=== PATIENT | female | born 1985 | race Caucasian/White ===

== ENCOUNTER 2018-10-22 10:33 | Outpatient (REF) | payer MEDICAID, SELFPAY ==
[2018-10-22 18:52] LABS: HCT 38.2 % (36.0-46.0); HGB 12.4 g/dL (12.0-15.5); Mean Corp. HGB Concentration 32.5 g/dL (32.0-36.0); Mean Corpuscular Hemoglobin 29.9 pg (27.0-33.0); Mean Platelet Volume 10.3 fL (8.0-11.0); Platelet Count 256 x1000/uL (130-400); RBC 4.15 m/cumm (4.00-5.20); RBC Distribution Width 12.8 % (11.7-14.6); White Blood Cell Count 10.53 k/cumm (4.4-10.8)
[2018-10-22 19:05] LABS: Iron 52 ug/dL (50-175)
[2018-10-22 19:13] LABS: Anion Gap 10.6 mmol/L (3-11); BUN 15 mg/dL (7-18); CO2 30.4 mmol/L (21.0-32.0); CREATININE 0.81 mg/dL (0.55-1.02); Chloride 101 mmol/L (98-107); Ferritin 83 ng/mL (8-388); Glucose 131 mg/dL (70-100); Sodium 142 mmol/L (136-145); TSH 0.83 uIU/mL (0.358-3.74)
[2018-10-22 20:57] LABS: Potassium 2.9 mmol/L (3.5-5.1)
[2018-10-24 06:32] LABS: Vitamin D 25 Total 22.8 ng/ml (30-100)
== END 2018-10-22 10:53 ==
LOC: NCHCN 10:33
PROVIDERS: Visit Provider Nurse Practitioner Family
DX: R53.83 Other fatigue (principal)
CPT/HCPCS: 80048; 82306; 85027; 82728; 83540; 84443; 87086

== ENCOUNTER 2018-12-24 14:51 | Outpatient (REF) | payer MEDICAID, SELFPAY | END 2018-12-24 15:11 | LOC: NCHCN 14:51 | PROVIDERS: Visit Provider Nurse Practitioner Family | DX: N89.8 Other specified noninflammatory disorders of vagina (principal) | CPT/HCPCS: 87480; 87510; 87660 ==

== ENCOUNTER 2019-09-04 12:54 | Outpatient (REF) | payer MEDICAID, SELFPAY ==
[2019-09-04 19:34] LABS: Anion Gap 11.4 mmol/L (3-11); BUN 14 mg/dL (7-18); CO2 27.6 mmol/L (21.0-32.0); CREATININE 0.61 mg/dL (0.55-1.02); Calcium 9.3 mg/dL (8.5-10.1); Chloride 102 mmol/L (98-107); Glucose 99 mg/dL (74-106); Sodium 141 mmol/L (136-145); TSH (W/Ref FT4) 1.63 uIU/mL (0.36-3.74)
== END 2019-09-04 13:14 ==
LOC: NCHCN 12:54
PROVIDERS: PCP Nurse Practitioner Family; Visit Provider Nurse Practitioner Family
DX: R00.2 Palpitations (principal); I10 Essential (primary) hypertension
CPT/HCPCS: 80048; 84443

== ENCOUNTER 2019-10-09 10:03 | Outpatient (REF) | payer MEDICAID, SELFPAY | END 2019-10-09 10:23 | LOC: NCHCN 10:03 | PROVIDERS: PCP Nurse Practitioner Family; Visit Provider Nurse Practitioner Family | DX: N39.0 Urinary tract infection, site not specified (principal) | CPT/HCPCS: 87077; 87086 ==

== ENCOUNTER 2020-04-15 13:07 | Outpatient (REF) | payer MEDICAID, SELFPAY ==
[2020-04-15 19:53] LABS: HCT 39.1 % (36.0-46.0); HGB 12.5 g/dL (11.2-15.7); MCH 28.9 pg (27.0-33.0); MCV 90.3 fL (80-95); MPV 10.4 fL (8.0-11.0); Platelet Count 264 10^3/uL (130-400); RBC 4.33 10^6/uL (3.93-5.22); RDW 13.2 % (11.7-14.6); RDW-SD 43.8 fL; WBC 8.16 10^3/uL (4.4-10.8)
[2020-04-15 20:20] LABS: Iron 48 ug/dL (50-170)
[2020-04-15 20:38] LABS: Vitamin D 25 Total 36.4 ng/ml (30-100)
[2020-04-15 20:40] LABS: Anion Gap 11.8 mmol/L (3-11); BUN 19 mg/dL (7-18); CO2 23.2 mmol/L (21.0-32.0); CREATININE 0.83 mg/dL (0.55-1.02); Calcium 9.5 mg/dL (8.5-10.1); Chloride 104 mmol/L (98-107); Ferritin 69 ng/mL (8-252); Glucose 93 mg/dL (74-106); Magnesium 1.7 mg/dL (1.8-2.4); Potassium 4.1 mmol/L (3.5-5.1); Sodium 139 mmol/L (136-145); TSH (W/Ref FT4) 1.37 uIU/mL (0.36-3.74); Vitamin B12 1760 pg/mL (193-986)
== END 2020-04-15 13:27 ==
LOC: NCHCN 13:07
PROVIDERS: PCP Nurse Practitioner Family; Visit Provider Nurse Practitioner Family
DX: I10 Essential (primary) hypertension (principal); E83.42 Hypomagnesemia; D50.9 Iron deficiency anemia, unspecified; Z68.42 Body mass index [BMI] 45.0-49.9, adult
CPT/HCPCS: 80048; 82306; 85027; 82607; 82728; 83540; 83735; 84443

== ENCOUNTER 2020-06-14 19:40 | Outpatient (REF) | payer MEDICAID, SELFPAY | END 2020-06-14 20:00 | LOC: NCHCN 19:40 | PROVIDERS: PCP Nurse Practitioner Family; Visit Provider Internal Medicine | DX: R30.0 Dysuria (principal) | CPT/HCPCS: 87086 ==

== ENCOUNTER 2021-01-05 18:25 | Outpatient (REF) | payer MEDICAID, SELFPAY ==
[2021-01-06 17:04] LABS: COVID-19 RT-PCR UVMMC Result Negative (Negative)
== END 2021-01-05 18:26 | disposition home or self-care (01) ==
LOC: NCHCN 18:25
PROVIDERS: PCP Nurse Practitioner Family; Visit Provider Nurse Practitioner Family
DX: Z20.822 Contact with and (suspected) exposure to COVID-19 (principal)
CPT/HCPCS: U0003

== ENCOUNTER 2021-02-17 17:13 | Outpatient (REF) | payer MEDICAID, SELFPAY | END 2021-02-17 17:14 | disposition home or self-care (01) | LOC: NCHCN 17:13 | PROVIDERS: PCP Nurse Practitioner Family; Visit Provider Physician Assistant | DX: R30.9 Painful micturition, unspecified (principal); R30.0 Dysuria | CPT/HCPCS: 87086; 87480; 87510; 87660 ==

== ENCOUNTER 2021-06-16 16:17 | Outpatient (REF) | payer MEDICAID, SELFPAY ==
[2021-06-16 21:02] LABS: HCT 39.6 % (36.0-46.0); HGB 12.5 g/dL (11.2-15.7); MCH 28.7 pg (27.0-33.0); MCHC 31.6 % (32.0-36.0); MPV 9.9 fL (8.0-11.0); Platelet Count 302 10^3/uL (130-400); RBC 4.35 10^6/uL (3.93-5.22); RDW 12.6 % (11.7-14.6); RDW-SD 41.7 fL; WBC 10.88 10^3/uL (4.4-10.8)
[2021-06-16 21:14] LABS: ALT 34 U/L (14-59); AST 14 U/L (15-37); Alkaline Phosphatase 93 U/L (46-116); Anion Gap 12.9 mmol/L (3-11); BUN 18 mg/dL (7-18); Bilirubin, Total 0.2 mg/dL (0.2-1.0); CO2 24.1 mmol/L (21.0-32.0); CREATININE 0.9 mg/dL (0.55-1.02); Calcium 9.5 mg/dL (8.5-10.1); Calculated LDL 154 mg/dL (<100); Chloride 102 mmol/L (98-107); Cholesterol 237 mg/dL (<200); Glucose 99 mg/dL (74-106); HDL Cholesterol 54 mg/dL (40-60); Potassium 4.3 mmol/L (3.5-5.1); Sodium 139 mmol/L (136-145); Total Protein 7.9 g/dL (6.4-8.2); Triglyceride 146 mg/dL (<150)
== END 2021-06-16 16:18 | disposition home or self-care (01) ==
LOC: NCHCN 16:17
PROVIDERS: PCP Nurse Practitioner Family; Visit Provider Registered Nurse
DX: I10 Essential (primary) hypertension (principal); Z68.45 Body mass index [BMI] 70 or greater, adult; Z00.00 Encounter for general adult medical examination without abnormal findings
CPT/HCPCS: 80053; 80061; 85027

== ENCOUNTER 2021-07-27 17:37 | Outpatient (REF) | payer MEDICAID, SELFPAY ==
[2021-07-28 04:09] LABS: Vitamin D 25 Total 37.5 ng/mL (30-100)
[2021-07-28 08:21] LABS: Ferritin 67 ng/mL (8-252); Magnesium 1.8 mg/dL (1.8-2.4)
== END 2021-07-27 17:38 | disposition home or self-care (01) ==
LOC: NCHCN 17:37
PROVIDERS: PCP Nurse Practitioner Family; Visit Provider Registered Nurse
DX: I10 Essential (primary) hypertension (principal); R73.03 Prediabetes; G25.81 Restless legs syndrome
CPT/HCPCS: 82306; 82728; 83735

== ENCOUNTER 2022-08-17 16:49 | Outpatient (REF) | payer MEDICAID, SELFPAY | END 2022-08-17 16:50 | disposition home or self-care (01) | LOC: NCHCN 16:49 | PROVIDERS: PCP Nurse Practitioner Family; Visit Provider Registered Nurse | DX: L29.8 Other pruritus (principal) | CPT/HCPCS: 87480; 87510; 87660 ==

== ENCOUNTER 2022-10-27 20:48 | Outpatient (REF) | payer MEDICAID, SELFPAY ==
[2022-10-27 21:21] LABS: Abs Immature Grans 0.02 10^3/uL (0.0-0.06); Absolute Basophil Count 0.03 10^3/uL (0.0-0.2); Absolute Eosinophil Count 0.18 10^3/uL (0.0-0.7); Absolute Lymphocyte Count 3.13 10^3/uL (1.2-3.4); Absolute Neutrophil Count 5.46 10^3/uL (1.2-6.7); Basophils % 0.3; HCT 40.4 % (36.0-46.0); Immature Grans % 0.2; Lymphocytes % 33.9; MCH 29.5 pg (27.0-33.0); MCHC 32.2 % (32.0-36.0); MCV 92 fL (80-95); MPV 10.4 fL (8.0-11.0); Monocytes % 4.3; Neutrophils % 59.3; Platelet Count 265 10^3/uL (130-400); RBC 4.41 10^6/uL (3.93-5.22); RDW 12.7 % (11.7-14.6); RDW-SD 42.5 fL; WBC 9.22 10^3/uL (4.4-10.8)
[2022-10-27 21:30] LABS: ALT 31 U/L (14-59); AST 21 U/L (15-37); Albumin 3.9 g/dL (3.4-5.0); Alkaline Phosphatase 75 U/L (46-116); Anion Gap 9.8 mmol/L (3-11); BUN 10 mg/dL (7-18); Bilirubin, Total 0.3 mg/dL (0.2-1.0); CO2 26.2 mmol/L (21.0-32.0); CREATININE 0.9 mg/dL (0.55-1.02); Calcium 9.5 mg/dL (8.5-10.1); Chloride 103 mmol/L (98-107); Estimated GFR 84.44 (mL/min/1.73m2); Glucose 110 mg/dL (74-106); Lipase 22 U/L (16-77); Potassium 3.8 mmol/L (3.5-5.1); Sodium 139 mmol/L (136-145); Total Protein 7.9 g/dL (6.4-8.2)
== END 2022-10-27 20:49 | disposition home or self-care (01) ==
LOC: NCHCN 20:48
PROVIDERS: PCP Nurse Practitioner Family; Visit Provider Registered Nurse
DX: R10.9 Unspecified abdominal pain (principal)
CPT/HCPCS: 80053; 83690; 85025

== ENCOUNTER 2024-07-15 21:41 | Outpatient (REF) | payer MEDICAID, SELFPAY ==
--- OUTSIDE RECORDS SUMMARY | 2024-07-15 21:45 | XMS_ITS | Encounter Summary ---
Author Organization [facility] Address [facility] [place] [address] Care Team Providers Care Bike Designer Name Role Phone Trisha Jacobson Hoa PANDYA Primary Care Provider + Reason for Visit * Reason Comments Annual Exam Encounter Details Date Type Department Care Team (Latest Contact Info) Description 11/24/2022 11:00 AM EST Office Visit Obstetrics [place] [address] Jacque Dawson APRN [facility] [place] [address] History of loop electrical excision procedure (LEEP); High grade squamous intraepithelial lesion (HGSIL), grade 3 CAROLEE, on biopsy of cervix Social History Tobacco Use Types Packs/Day Years Used Date Smoking Tobacco: Former Smokeless Tobacco: Never Alcohol Use Standard Drinks/Week Comments Not Currently 0 (1 standard drink = 0.6 oz pur e alcohol) Sex and Gender Information Value Date Recorded Sex Assigned at Not on file Gender Identity Female 09/20/2020 2:54 PM EST Sexual Orientation Not on file documented as of this encounter Last Filed Vital Signs Vital Sign Reading Time Taken Comments Blood Pressure 141/78 11/24/2022 11:03 AM EST Pulse 87 11/24/2022 11:03 AM EST Temperature 37.2 ??C (99 ??F) 11/24/2022 11:03 AM EST Respiratory Rate 16 11/24/2022 11:03 AM EST Oxygen Saturation 98% 11/24/2022 11:03 AM EST Inhaled Oxygen Concentration - - Weight 180 kg (396 lb 14.4 oz) 11/24/2022 11:03 AM EST Height - - Body Mass Index 68.13 09/15/2021 1:15 PM EST documented in this encounter Progress Notes * Jacque Dawson APRN - 11/24/2022 11:00 AM EST Gynecology Note Subjective: Cecilia Connelly is a 37 y.o. female who is here to discuss follow up pap. Reports her menses has been worsening, heavy bleeding, big clots and excruciatingly painful at thebeginning. Pap history: 08/2022: f/u cotesting due 08/2021: NILM/HPV neg, benign ECC 07/2021: pap unsat/HPV neg, benign ECC 09/22/20 LEEP HSIL/CAROLEE III Completed HPV vaccine series Patient Active Problem List Diagnosis Date Noted ??? BMI 60.0-69.9, adult 09/30/2020 ??? CAROLEE III (cervical intraepithelial neoplasia III) 09/22/2020 No Known Allergies Outpatient Medications Marked as Taking for the 11/24/22 encounter (Office Visit) with Jacque Dawson APRN Medication Sig Dispense Refill ??? Spiriva with HandiHaler 18 mcg Capsule, w/Inhalation Device INHALE THE CONTENTS OF ONE CAPSULE VIA HANDIHALER BY MOUTH EVERY DAY ??? traZODone (Desyrel) 50 mg Tablet Take 50 mg by mouth nightly. ??? ondansetron ODT (Zofran-ODT) 4 mg Tablet, Rapid Dissolve DISSOLVE ONE TABLET ON THE TONGUE EVERY 8 HOURS NEEDED FOR NAUSEA AND VOMITING ??? L-Methylfolate 15 mg Tablet Take 15 mg by mouth daily. ??? fluticasone propion-salmeteroL (ADVAIR HFA) 115-21 mcg/actuation HFA Aerosol Inhaler Inhale 2 puffs into the lungs 2 times daily. ??? lamoTRIgine (LaMICtal) 100 mg Tablet Take 100 mg by mouth daily. ??? lisdexamfetamine (Vyvanse) 10 mg Capsule Take 50 mg by mouth daily. ??? Lavender Oil Oil by Misc.(Non-Drug; Combo Route) route. ??? LORazepam (Ativan) 1 mg Tablet Take 1 mg by mouth every 6 hours as needed for Anxiety. ??? fexofenadine (PRAVIN) 180 mg Tablet TAKE 1 TABLET BY MOUTH ONCE DAILY ??? Mag-G 27 mg magnesium (500 mg) Tablet TAKE 3 TO 4 TABLETS BY MOUTH TWICE DAILY ??? sertraline (ZOLOFT) 100 mg Tablet 50 mg. Half tab once a day ??? diphenhydrAMINE (Benadryl) 25 mg Capsule Take 25 mg by mouth every 6 hours as needed for Itching. ??? omeprazole (PriLOSEC) 40 mg Capsule, Delayed Release(E.C.) TAKE 1 CAPSULE BY MOUTH TWICE DAILY REPLACES OMEPRAZOLE 20MG ??? lisinopriL (Prinivil;Zestril) 40 mg Tablet TAKE 1 TABLET BY MOUTH ONCE DAILY DOSE INCREASE ??? cholecalciferol, Vitamin D3, 50 mcg (2,000 unit) Capsule TAKE 2 CAPSULES BY MOUTH ONCE DAILY ??? acetaminophen (TYLENOL) 650 mg Tablet Sustained Release Take 650 mg by mouth every 8 hours as needed for Pain. Do not exceed 6 tabs in 24 hours ??? Vitamins B Complex Tablet TAKE 1 TABLET BY MOUTH TWICE DAILY ??? naproxen (NAPROSYN) 500 mg Tablet TAKE 1 TABLET BY MOUTH TWICE DAILY NEEDED FOR PAIN ??? albuteroL 90 mcg/actuation HFA Aerosol Inhaler Inhale 2 puffs into the lungs every 4 hours as needed for Wheezing. Use with spacer Past Medical History: Diagnosis Date ??? Anemia ??? Carpal tunnel syndrome ??? Chronic headaches ??? Depression with anxiety ??? GERD (gastroesophageal reflux disease) ??? Hypertension ??? Insomnia ??? Low back pain ??? Obesity ??? Prediabetes ??? PTSD (post-traumatic stress disorder) ??? Sleep apnea CPAP ??? Urolithiasis Past Surgical History: Procedure Laterality Date ??? SECTION 2014 ??? SECTION 2015 ? ? PRO CONIZATION CERVIX W/WO D&C RPR ELECTRODE EXCISION N/A 09/22/2020 CONIZATION OF CERVIX, LOOP ELECTRODE (WRVU 3.67) performed by Jennifer Blair MD at [facility] MAIN OR ??? PRO REMOVE INTRAUTERINE DEVICE N/A 09/22/2020 (MSURG) REMOVAL IUD, VAGINAL APPROACH (WRVU 1.27) performed by Jennifer Blair MD at [facility] MAIN OR ??? TONSILLECTOMY ??? TUBAL LIGATION 2016 salpingectomy ??? TYMPANOSTOMY TUBE PLACEMENT Family History Problem (# of Occurrences) Relation (Name,Age of Onset) Breast Cancer (1) Other (Maternal great aunt) Ovarian Cancer (1) Mother (25): Start of ovarian cancer Bladder Cancer (1) Maternal Grandfather Negative family history of: Uterine Cancer, Colorectal Cancer, Pancreatic Cancer, Stomach Cancer OB History 2 Para 2 Term 2 AB Living 2 SAB IAB Ectopic Multiple Live Births 2 # Outc Date GA Lbr Davis/2nd Wgt Sex Del Anes PTL Lv 1 01/2015 36w0d 2.92 kg (6 lb 7 oz) F C-S scar Living Comments: PPROM, breech 2 06/2016 36w0d F C-S scar Living Comments: Pre-eclampsia, repeat CS due to short zlwip-dnjpdevm-irqzauul ROS as above Objective: BP 141/78 Pulse 87 Temp 37.2 ??C (99 ??F) Resp 16 Wt (!) 180 kg (396 lb 14.4 oz) LMP 10/30/2022 (Exact Date) SpO2 98% BMI 68.13 kg/m?? A spragger was present for this exam. Pelvic Exam: Urethra: Nontender, without prolapse or lesions. Vulva: Well developed and appropriate architecture present. No lesions. Vagina: [place], moist, rugated. Physiologic discharge present. No lesions. Bimanual exam performed and cervix easily palpated Cervix: long graves speculum used, Anterior lip visualized and grasped with tenaculum, however, patient was unable to tolerate and unable to pull face of cervix into view. Decision made to obtain blind pap Assessment/Plan: 37 y.o. female with h/o HSIL/CIN3 on LEEP presents for f/u pap with concern for return of heavy, painful menses - Blind pap obtained as unable to fully visualize cervix - Recommend separate visit to discuss menstrual history and concern, given interest in endometrial ablation, recommend MD f/u. - If pap unsatisfactory and endometrial ablation pursued, we discussed that repeat pap could be done in OR at time of ablation Jacque Dawson APRN I spent a total of 35 minutes on this patient encounter or all related clinical activities before, during, and after the visit. The Century Cures Act makes medical notes like this available to patients in the interest of transparency. However, be advised this is a medical document. It is intended as dwcx-ci-gyuv communication. It is written in medical language and may contain abbreviations or verbiage that are unfamiliar. * Radha Rodriguez LNA - 11/24/2022 11:00 AM EST Examination chaperoned by RAHEL Ram. documented in this encounter Plan of Treatment Not on file documented as of this encounter Procedures Procedure Name Priority Date/Time Associated Diagnosis Comments CYTOPATHOLOGY GYNECOLOGICAL Routine 11/24/2022 11:28 AM EST History of loop electrical excision procedure (LEEP) High grade squamous intraepithelial lesion (HGSIL), grade 3 CAROLEE, on biopsy of cervix HPV Routine 11/24/2022 11:00 AM EST MAINTENANCE DEPARTMENT MANAGER CYTOLOGY INTERPRETATION Routine 11/24/2022 11:00 AM EST MAINTENANCE DEPARTMENT MANAGER CYTOLOGY FINAL REPORT Routine 11/24/2022 11:00 AM EST documented in this encounter Results * Cytopathology Gynecological (11/24/2022 11:28 AM EST) AP Specimen 11/24/2022 11:2 8 AM EST 11/24/2022 11:28 AM EST Narrative [facility] - 11/24/2022 11:28 AM EST Specimen requisition ordered. ??Separate Pathology report to follow Jacque Dawson APRN PATHOLOGY/CYTOLOGY O RDERABLES [facility] [place] [address] * MAINTENANCE DEPARTMENT MANAGER Cytology Interpretation (11/24/2022 11:00 AM EST) Wool Scourer Cytology Interpretation Unsatisfactory [facility] Comment:Wool Scourer Cytology Final R eport Wool Scourer Cytology Comment Present [facility] Endocervical Component Unsatisfactory [facility] AP Specimen 11/24/2022 11:0 0 AM EST 12/18/2022 12:38 PM EDT Jacque Flores Dawson CORPORATE GIVING MANAGER PATHOLOGY/CYTOLOGY O RDERABLES [facility] [place] [address] * Wool Scourer Cytology Final Report (11/24/2022 11:00 AM EST) Wool Scourer Cytology Final Report [id number] ? Location: 5L The signing pathologist has (i) examined the relevant preparation(s) for the specimen(s) and (ii) rendered or confirmed the diagnosis(es). . ? Wool Scourer Final DIAGNOSIS Unsatisfactory Specimen submitted is unsatisfactory for evaluation. ??See discussion. For consensus guidelines for the management of cervical cancer screening test results, please see: ?? http://www.asccp. org . Electronically signed by: ?Sia CASTORENA(ASCP)Cristal Verified: ??12/18/2022 12:38 ??Cytotechnologis t Performed at: ??[place] [place], [place] [address] Veterinary Technician Assistant: Noel Chinchilla MD, FCAP, ??CLIA Certificate: [id number] DISCUSSION Specimen processed and examined but unsatisfactory for evaluation of epithelial abnormality due to insufficient squamous cellularity. Specimen limited by obscuring blood. HPV RESULTS HPV16 (Result) ?Negative HPV18 (Result) ?Negative HPVOHR (Result) ? Negative HPV (Interpretation) ?See Below HPV (Interpretation) Text: NEGATIVE for high-risk HPV *. *Testing negative for high risk HPV means that high risk HPV DNA is not detected in the specimen for the following 14 types tested: types 16, 18, 31, 33, 35, 39, 45, 51, 52, 56, 58, 59, 66, and 68. The test is not intended to detect low risk HPV types. Method: Lidia tiffany HPV test (FDA-approved for clinical use) Specimen: HPV Testing ?? - Cytology Liquid Based Prep This test is validated for cervical specimens only for use in cervical cancer screening. ??Other uses or specimen types are not validated/rec ommended. The Lidia tiffany ? HPV test was validated, performed and results reported through the [facility] ([facility]) at [facility] [place]. ? - Jesu Mott, PhD, [facility], Director-[facility] STATEMENT OF ADEQUACY Specimen submitted is unsatisfactory due to insufficient squamous component. CLINICAL INFORMATION HPV Option: ?Concurrent HPV and Pap CT/NG Option: ?No Preparation: ? Liquid based Pap Specimen Source: ? Cervical/Vaginal LMP: ? 10/30/22 Hysterectomy: ?No : ?No : ?No I.U.D.: ?No Pelvic Radiation: ?No Hist Abnl Pap/Biopsy: ?Yes, Pap after Cryo, LEEP . CLINICAL INFORMATION Prior MAINTENANCE DEPARTMENT MANAGER Therapy: ? Other (comment) Hist of HPV Vaccine: ? Yes ICD Diagnosis: ? Z12.4 Encounter for screening for malignant neoplasm of cervix Clinical Data, Significant Therapy and Clinical Impression ?? : ?LEEP 2019 This Pap Test has been evaluated with the assistance of the ThinPrep Pap Test Imaging System. Note: The Pap test is a screening test for cervical cancer with an inherent false-negative rate dependent upon several variables. For further information please contact the [facility] [place]. Reference: Bc SNOW. Precipitate Washer of Pap Smear Results. In: Lyudmila BS, Nathan HH, ed. The Pap Smear. [place]: Brady, 2002: 71-77. [facility] 11/24/2022 11:0 0 AM EST Jacque Dawson CORPORATE GIVING MANAGER PATHOLOGY/CYTOLOGY O RDERABLES [facility] [place] [address] * HPV (11/24/2022 11:00 AM EST) HPV16 NEGATIVE NEGATIVE [facility] HPV 18 NEGATIVE NEGATIVE [facility] HPV Other HR NEGATIVE NEGATIVE [facility] HPV Interpretation See Comment [facility] Comment: NEGATIVE for high-risk HPV *. ?? *Testing negative for high risk HPV means that high risk HPV DNA is not detected in the specimen for the following 14 types tested: types 16, 18, 31, 33, 35, 39, 45, 51, 52, 56, 58, 59, 66, and 68. The test is not intended to detect low risk HPV types. ?? Method: Lidia tiffany HPV test (FDA-approved for clinical use) Specimen: HPV Testing ? Cytology Liquid Based Prep This test is validated for cervical specimens only for use in cervical cancer screening. ??Other uses or specimen types are not validated/recommended. Cervical 11/24/2022 11:0 0 AM EST 11/24/2022 10:29 PM EST Narrative Resulting Agency Comment Spec In Lab Jacque Dawson CORPORATE GIVING MANAGER PATHOLOGY/CYTOLOGY O RDERABLES [facility] [place] [address] documented in this encounter Visit Diagnoses Diagnosis History of loop electrical excision procedure (LEEP) High grade squamous intraepithelial lesion (HGSIL), grade 3 CAROLEE, on biopsy of cervix documented in this encounter Care Teams Bike Designer Relationship Specialty Start Date End Date Trisha Jacobson, CORPORATE GIVING MANAGER [address] [place] [address] PCP - General 07/29/21 documented as of this encounter
--- OUTSIDE RECORDS SUMMARY | 2024-07-15 21:45 | XMS_ITS | Encounter Summary ---
Author Organization [facility] [place] [address] Care Team Providers Care Hand Potter Name Role Phone Trisha Jacobson SAMPLE DRILLER Primary Care Provider + Encounter Details Date Type Department Care Team (Latest Contact Info) Description 01/10/2023 Travel Social History Tobacco Use Types Packs/Day Years Used Date Smoking Tobacco: Former Smokeless Tobacco: Never Alcohol Use Standard Drinks/Week Comments Not Currently 0 (1 standard drink = 0.6 oz pur e alcohol) Sex and Gender Information Value Date Recorded Sex Assigned at Not on file Gender Identity Female 09/20/2020 2:54 PM EST Sexual Orientation Not on file documented as of this encounter Plan of Treatment Not on file documented as of this encounter Visit Diagnoses Not on filedocumented in this encounter Care Teams Hand Potter Relationship Specialty Start Date End Date Trisha Jcaobson, MUMTAZ [address] [place] [address] PCP - General 07/29/21 documented as of this encounter
--- OUTSIDE RECORDS SUMMARY | 2024-07-15 21:45 | XMS_ITS | Continuity of Care Document ---
Author Organization [facility] Address [address] [place] [address] Care Team Providers Care Pe[employer] Hcm Developer Name Role Phone Lizbeth Rose Primary Care Physician [phone] Encounter [facility] Date(s): 07/19/23 - 07/19/23 [facility] [address] [place] [address] Encounter Diagnosis Obstructive sleep apnea(Discharge Diagnosis) - 07/19/23 Restless legs syndrome(Discharge Diagnosis) - 07/19/23 Psychophysiologic insomnia(Discharge Diagnosis) - 07/19/23 Discharge Disposition: Home or Self Care Attending Physician: Shauna Kramer MD Allergies, Adverse Reactions, Alerts No Known Allergies Immunizations Given and Recorded Vaccine Date Status Refusal Reason SARS-CoV-2 (COVID-19) mRNA-1273 vaccine 10/25/20 R ecorded SARS-CoV-2 (COVID-19) mRNA-1273 vaccine 09/23/20 R ecorded influenza virus vaccine, live 06/29/16 Recorded tetanus/diphth/pertuss (Tdap) adult/adol 06/16/16 Recorded tetanus/diphth/pertuss (Tdap) adult/adol 01/05/15 Recorded Medications Advair HFA 230 mcg-21 mcg/inh inhalation aerosol 2 puffs, Inhale, BID Start Date: 06/09/22 Status: Ordered albuterol 2.5 mg/3 mL (0.083%) inhalation solution 2.5 mg = 3 mL, NEB, every 4 hr, PRN wheezing Start Date: 06/09/22 Status: Ordered Change DME company Change DME company, Current setting Bipap imax 20, krystle 11, PS 4 DME: [facility] Supply, See instructions, # 1 EA, 0 Refill(s), other reason (Rx) Start Date: 03/29/22 Status: Ordered famotidine 40 mg oral tablet 1 at bedtime, 0 Refill(s) Start Date: 07/02/23 Status: Ordered ferrous sulfate 325 mg (65 mg elemental iron) oral tablet 325 mg = 1 tab, Oral, Daily, 90 days only, no refills, after that use the MVI with Iron for maintenance, # 90 tab, 0 Refill(s), Pharmacy: [facility] Start Date: 07/24/22 Status: Ordered fluticasone 50 mcg/inh nasal spray 1 sprays, Nasal - Both Sides, BID Start Date: 06/09/22 Status: Ordered gabapentin 100 mg oral capsule See Instructions, take 1 to 3 capsules PO at night, self titrate to symptoms; ONLY FILL WHEN PT REQUESTS, # 90 cap, 0 Refill(s), Pharmacy: [facility], 163, cm, 07/19/23 9:45:00 EDT, Height,165.56, kg, 07/19/23 9:46:00 EDT, Weight Dosing Start Date: 07/19/23 Status: Ordered l-methylfolate 15 mg oral tablet 15 mg = 1 tab, Oral, Daily Start Date: 06/09/22 Status: Ordered lamoTRIgine 200 mg oral tablet 1 tab daily, 0 Refill(s) Start Date: 07/02/23 Status: Ordered lamoTRIgine 25 mg oral tablet 50 mg = 2 tab, Oral, Daily, INCREASE IN DOSE TO 250MG DAILY CONTINUE TO MONITOR FOR RASH Start Date: 06/09/22 Status: Ordered lavender oil lavender oil, Daily, 1 daily, 0 Refill(s) Start Date: 06/09/22 Status: Ordered lisinopril 40 mg oral tablet 40 mg = 1 tab, Oral, Daily Start Date: 06/09/22 Status: Ordered Mag-G 500 mg oral tablet See Instructions, Mag-G 27 mg magnesium (500mg); TAKE 3 TO 4 TABLETS BY MOUTH TWICE DAILY, # 720 tab, 3 Refill(s), Pharmacy: [facility] Start Date: 07/24/22 Status: Ordered Multi-Day Plus Minerals oral tablet 1 tab, Oral, Daily, multivitamin with iron (10 to 20mg per tab is fine), # 90 tab, 3 Refill(s), Pharmacy: [facility] Start Date: 07/24/22 Stop Date: 07/19/23 Status: Ordered naproxen 500 mg oral tablet 500 mg = 1 tab, Oral, BID, PRN pain, LESS IS BEST- TAKE ON THE DAYS YOU ARE HAVING KNEE PAIN Start Date: 06/09/22 Status: Ordered omeprazole 40 mg oral delayed release capsule 40 mg = 1 cap, Oral, Daily Start Date: 06/09/22 Status: Ordered traZODone 100 mg oral tablet 1 Tab at bedtime, 0 Refill(s) Start Date: 07/02/23 Status: Ordered Tylenol 8 Hour 650 mg oral tablet, extended release 2 a day, 0 Refill(s) Start Date: 07/02/23 Status: Ordered Vitamin B Complex oral capsule 1 cap, Oral, BID, # 180 cap, 3 Refill(s), Pharmacy: [facility] Start Date: 07/24/22 Stop Date: 07/19/23 Status: Ordered Vitamin D3 2000 intl units oral tablet 100 mcg = 2 tab, Oral, Daily, # 180 tab, 3 Refill(s), Pharmacy: [facility] Start Date: 07/24/22 Status: Ordered Vyvanse 40 mg oral capsule 40 mg = 1 cap, Oral, every morning, 0 Refill(s) Start Date: 06/09/22 Status: Ordered Problem List Condition Confirmation Course Effective Dates Status H ealth Status Informant Cellulitis of right upper limb Confirmed Active Chronic pelvic pain of female Confirmed 08/28/19 Active Daytime somnolence Confirmed 02/01/18 Active Fatigue Confirmed Active Hemorrhoids Confirmed Active Hypertensive disorder Confirmed Active Hypomagnesemia Confirmed Active Morbid obesity Confirmed 03/06/18 Active Obstructive sleep apnea syndrome 1 Confirmed 03/06/18 Active Obstructive sleep apnea Confirmed Active Pre-eclampsia Confirmed Active Prediabetes Confirmed 08/10/20 Active Previous uterine surgical scar Confirmed Active Prolonged QT interval Confirmed Active Restless leg Confirmed Active Restless legs Confirmed 02/01/18 Active Restless legs syndrome Confirmed Active Urolithiasis Confirmed 08/10/20 Active Vitamin D deficiency Confirmed 04/04/18 Active 1keene Procedures Procedure Date Related Diagnosis Body Site Status delivery 1 07/12/16 Compl eted Tubal ligation and Bilateral Salpingectomy 07/12/16 Completed delivery 2 01/16/15 Compl eted Tonsillectomy Completed 1repeat 2Breech Vital Signs Most recent to oldest [Reference Range]: 1 Weight 165.56 kg (07/19/23 9:45 AM) Weight Measured (lbs) 364.997 lb (07/19/23 9:45 AM) Weight Dosing 165.560 kg (07/19/23 9:45 AM) Height 163 cm (07/19/23 9:45 AM) Height/Length Measured (inches) 64.17 in ch (07/19/23 9:45 AM) BSA Measured 2.74 m2 (07/19/23 9:45 AM) Body Mass Index 62.31 kg/m2 (07/19/23 9:45 AM) Social History Social History Type Response Tobacco Former tobacco user Tobacco Use:. quit 8 years ago per day. Sex Female Progress note * Hernan Nation: PERFORM Event Display: Progress Note - Physician Authored Date: [id number] Physician Outpatient Note * Shauna Kramer MD: PERFORM, MODIFY, MODIFY Event Display: Office Clinic Note Physician Authored Date: [id number] JUAN A SOLITARIO :1985 Age:38 years Sex:Female Visit Date:07/19/2023 Primary Care Physician: Lizbeth Rose MD History of Present Illness - Pt presents for medication and BIPAP followup. - She is going to start gabapentin 2 tabs tonight. - She has had severe nausea preventing her from sleeping, which she attributes to either gabapentinor IBS. - She discontinued hydroxyzine immediately after last appt. She continues to experience restless legs symptoms. - She has also had episodes of paralysis with dizziness when resting, which lasted between 30 minutes to 1 hour. Denies history of sleep paralysis. During one episode she had uncontrollable vomiting but couldn't move. Review of Systems A 10-point REVIEW OF SYSTEM was obtained and reviewed, includes CONSTITUTIONAL, EYES, NOSE, THROAT,RESPIRATORY, HEART, GASTROINTESTINAL, UROLOGIC, MUSCULOSKELETAL, PSYCHIATRY, SKIN systems. Pertinent symptoms are discussed in history, otherwise negative. fatigue, allergies, wheezing, sobe, palpitations, nausea, constipation, headaches, difficulty sleeping Physical Exam Vitals & Measurements HT:??163??cm?? WT:??165.56??kg?? BMI:??62.31?? BSA:??2.74?? GENERAL:??well appearing, appearing??stated??age, no acute distress,??obese??build HEENT: atraumatic skull, anicteric RESPIRATORY: quiet respiration, able to speak in full sentences without dyspnea, no accessory muscle use,?? SKIN: no facial skin rash, no facial skin lesions PSYCHIATRIC: well groomed, fluent speech, good insight, linear thought process, good eye contact,??balanced??affect NEUROLOGIC: alert, oriented, symmetric facial expression Clinic Assessment/Plan 1.??Obstructive sleep apnea??G47.33 Actions: ORDERED - gabapentin, See Instructions, take 1 to 3 capsules PO at night, self titrate to symptoms;ONLY FILL WHEN PT REQUESTS, # 90 cap, 0 Refill(s), Pharmacy: [facility], 163, cm, 07/19/23 9:45:00 EDT, Height, 165.56, kg, 07/19/23 9:46:00 EDT, Weight Dosing, take 1 to 3 capsules PO at night, self titrate to symptoms; ONLY FILL WHEN PT REQUESTS COMPLETED - gabapentin, See Instructions, take 1 to 3 capsules PO at night, self titrate to symptoms; check with manager psychiatry first, # 90 cap, 0 Refill(s), 07/19/23 10:09:00 EDT, Pharmacy: [facility], take 1 to 3 capsules PO at night, self titrate to symptoms; check with manager psychiatry first COMPLETED - Follow-Up Appointment Request [facility], 07/19/23 10:00:00 EDT, In Approximately, [place] [facility], 07/19/23 10:00:00 EDT FUTURE - Follow-Up Appointment Request [facility], *Est. 09/05/23 +/- 7 days, Future Order, In Approximately, [facility] ?? 2.??Restless legs syndrome??G25.81 Actions: ORDERED - gabapentin, See Instructions, take 1 to 3 capsules PO at night, self titrate to symptoms;ONLY FILL WHEN PT REQUESTS, # 90 cap, 0 Refill(s), Pharmacy: [facility], 163, cm, 07/19/23 9:45:00 EDT, Height, 165.56, kg, 07/19/23 9:46:00 EDT, Weight Dosing, take 1 to 3 capsules PO at night, self titrate to symptoms; ONLY FILL WHEN PT REQUESTS COMPLETED - gabapentin, See Instructions, take 1 to 3 capsules PO at night, self titrate to symptoms; check with manager psychiatry first, # 90 cap, 0 Refill(s), 07/19/23 10:09:00 EDT, Pharmacy: [facility], take 1 to 3 capsules PO at night, self titrate to symptoms; check with manager psychiatry first FUTURE - Follow-Up Appointment Request [facility], *Est. 09/05/23 +/- 7 days, Future Order, In [facility] ?? 3.??Psychophysiologic insomnia??F51.04 Actions: ORDERED - gabapentin, See Instructions, take 1 to 3 capsules PO at night, self titrate to symptoms;ONLY FILL WHEN PT REQUESTS, # 90 cap, 0 Refill(s), Pharmacy: [facility], 163, cm, 07/19/23 9:45:00 EDT, Height, 165.56, kg, 07/19/23 9:46:00 EDT, Weight Dosing, take 1 to 3 capsules PO at night, self titrate to symptoms; ONLY FILL WHEN PT REQUESTS COMPLETED - gabapentin, See Instructions, take 1 to 3 capsules PO at night, self titrate to symptoms; check with manager psychiatry first, # 90 cap, 0 Refill(s), 07/19/23 10:09:00 EDT, Pharmacy: [facility], take 1 to 3 capsules PO at night, self titrate to symptoms; check with manager psychiatry first FUTURE - Follow-Up Appointment Request [facility], *Est. 09/05/23 +/- 7 days, Future Order, In [facility] ?? I provided greater than??30??minutes in the care of this patient including chart review and documentation, more than half the time was spent in aiqb-oo-soat counseling. ?? 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 ?? Comorbidities??include: ?Extremely Severe Obstructive Sleep Apnea and Extremely Severe Nocturnal Hypoxemia, Anxiety, GERD, Depression, RLS and Morbid Obesity BMI 66, IBS with gluten sensitivity ? Clinical Data Reviewed:? ESS - [place] Sleepiness Scale Total: 5 (07/24/22) ESS - [place] Sleepiness Scale Total: 1 (03/27/22) [place] Sleepiness Scale: 3 (07/02/23) [place] Sleepiness Scale: 2/24 (07/19/23) ?? Machine Download Data:??Respironics Dreamstation Auto BIPAP?? PAP Settings: ??Auto BIPAP??Imax 20 cmH2O, Krystle 11 cmH2O, PS 4 cmH2O Date Range: ?06/17/23 - 07/16/23 Days with Usage >=4 hours: ??93.3% Avg Usage per Day Used: ??[id number] 90th-tile Pressure: ?16.9/12.9 cmH2O Leak:?4m15s in large leak Avg Treatment ??AHI:?0.3/hr ?? Sleep Clinical Timeline:?? Due to snoring, witnessed apneas, excessive daytime sleepiness, restless legs, morning headaches and nocturia, Diagnostic Polysomnogram on 03/04/2018 at Weight 424 lbs and BMI 72.8 kg/m2, revealed Extremely Severe Obstructive Sleep Apnea. Extremely Severe nocturnal hypoxemia. No significant Periodic Limb Movement Disorder. Overall AHI 109/hr, Overall RDI 110/hr, REM AHI 76/hr. Supine AHI 130/hr, Right Lateral AHI 111/hr, Left Lateral AHI n/a/hr. Mean SpO2 85%. Chepe SpO2 37%. 193 minutes with SpO2 <= 88% on room air. Periodic Limb Movement Index 0/hr. Periodic Limb Movement Arousal Index 0/hr. No significant arrhythmia except onset of PVCs/PACs associated with severe O2 desaturations during REM sleep. No Yvan-Naik Respiration. No parasomnias. No abnormalities on limited EEG montage. Normal sleep efficiency. Decreased REM sleep (systems technologist woke up patient during REM due to concernof very low O2 and onset of ectopic beats) ?? She was given SENA results follow up and started on cpap immediately, with systems technologist who did mask fitting after clinic on 03/06/18. She tried the full face mask and could not tolerate due to claustrophobia. ?? Titration Polysomnogram on 03/30/2018 at Weight 431 lbs and BMI 71.7 kg/m2, tested CPAP 10 to CPAP 14 cmH2O. Best tested pressure was CPAP 14 cm/H2O which nearly resolved significant apneas, hypopneas, snoring and desaturations during supine REM sleep, but there were residual snoring and few hypopneas observed, suggesting higher pressure is needed for supine REM sleep. All tested pressures appeared adequate for supine NREM sleep. Adequate oxygenation was maintained on all tested pressures, mean oxygenation improved to low to mid 90s%, with less than 5 minutes at SpO2 <= 88% during entire study. No evidence of hypoventilation on CPAP pressures tested. Patient's home mask, ResMed AirFit P10 Nasal Pillows in Size Medium, was used with mostly acceptable leak profile. Ambien was used as sleep aid for this sleep study. High sleep efficiency noted at 98%. Arousal index 4/hr. Periodic Limb Movement Index 0.8/hr. Periodic Limb Movement Arousal Index 0/hr.No significant arrhythmia. No Yvan-Naik Respiration. No parasomnias. No abnormalities on limited EEG montage. . Normal REM 18% TST.. ?? BIPAP Titration PSG on 01/15/2021 (wt 424 lbs/bmi 70.6) showed: 1. BIPAP titration for Extremely Severe Obstructive Sleep Apnea associated with significant nocturnal hypoxemia. 2. Optimal pressure at BIPAP 17/13 cm H2O and above which resolved significant apneas, hypopneas, snoring and desaturations including during supine REM sleep. BIPAP 16/[id number] worked well for Supine NREM sleep. BIPAP 15/[id number] worked well for Lateral NREM sleep. 3. Adequate oxygenation was maintained on tested pressures 4. CPAP was tried and failed. Patient felt BIPAP was better tolerated than CPAP. Interface problemsdid not contribute to CPAPs inability to control the patient's sleep apnea. 5. Respironics DreamWear, Full Face Mask with Large Cushion and Medium Headgear, showed acceptable leak profile. 6. Ambien 5mg was used as sleep aid for this sleep study. Normal sleep efficiency noted SE 91% 7. Recommend Auto BIPAP Imax 20 cm H2O Krystle 11 cm H2O and PS 4 cm H2O. order sent to [facility] on 01/20/21. ?? 1. Obstructive sleep apnea syndrome - Extremely Severe with severe nocturnal hypoxemia PSG 03/04/18 (wt 424 lbs / bmi 72.8) AHI 109/hr chepe O2 37% and 193 minutes with O2 < = 88%. 03/06/18: SENA results follow up and started SENA on auto cpap 10 to 18cm. 05/15/18: on auto cpap 10 to 18 machine shows mean pressure at 12.5 cm and 90- tile at 14.4cm. tx AHIadequate at 1/hr. will increase slightly to auto cpap 12 to 19cm due to residual hypersomnia. via p10 small nasal pillows. 12/03/18: inc to apap 13 to [id number] for pt comfort as she experiences intermittent feelings of suffocation. machine otherwise working well. 02/12/19: inc to apap 14 to 19cm for pt comfort due to feeling suffocating upon putting it on and inmiddle of night. no mask leak issues. tx AHI 0.5/hr. 01/11/21: requesting titration PSG due to residual hypersomnia despite using cpap, tried 's bipap and felt much better, had 4 pna episodes , ? hypoxemia. will send new machine order after PSG done 02/08/21: requested auto bipap imax 20 krystle 11 ps 4cm machine via [facility]. pt waiting to get it in mail.will plan for f2f visit in February or March, zoom is fine 05/16/21: f2f bipap, using/benefiting from bipap. recall pt aware already and wants to use it while waiting. advised registration 01/09/22: despite taking Vyvanse and using machine, patient reports that she is really tired. Reports that she has QT prolongation. 07/24/22: aside from issue w/ getting supplies, doing very well on machine with good compliance and resolution of AHI ?? 2. Hypomagnesemia - 10/21/19: will check level in 6 months w/ the rest of her labs 05/03/20: dont have access to results, but will inc Mg as above, based on sxs, also pt says her labsshow low Mg, will request copy from PCP office. 01/11/21: ordered Mg level 01/19/21 :Mg level moderately low at 1.5ng/ml. 02/08/21: patient has been taking 4 tabs magnesium glycinate 100mg BID (total 8 tabs daily) for last2 weeks and still has not had any improvement, with persistent severe hand, calve and foot cramps. she has historically taken magnesium oral supplement before and has low serum magnesium levels (1.5,1.5, 1.4, etc). We will arrange for IV magnesium infusion via the outpatient infusion center. will get prior auth via Medicaid then she can get infusion PRN for next 4 weeks before she moves 01/09/22: Last mg check was 1.7 or 1.8. Will recheck level today. 03/27/22: Mg at 1.7, continue Mg G 500mg 4 tabs BID (she has high Mg PO need) cramps are mild now and improved a lot ?? 3. Morbid obesity -on consult, BMI 73. enrolling in [facility] bariatric surgery program at suggestion ofher PCP Ken Alexandre. We discussed the relationship of MEY and weight, she is very aware, and hopesto lose weight after MEY is treated. 12/03/18: commended her for cutting soda out and working to eat more vegetables and unprocessed foods! keep up good work 02/11/19: she fell off the diet but wants to go back. 10/21/19: restarted on sep 17 keto diet + IF 16 hr 5 d/wk. feeling inches come off already and some wtloss too. she is getting cramps, drinking zero gatorade now but I asked her to try to find electrolyte mix w/ water, as fake sugars can also induce insulin release which would negate benefits of keto/IF. 05/03/20: she fell off diet but then recently got back on it, also started on a med for wt loss via her PCP. 03/27/22: on anti-inflammatory diet and cut out soda completely. ?? 4. Cramp in lower limb associated with sleep - 12/03/18: still getting muscle cramps in back mostly. Mg checked last week actually low at 1.5, despite being on 2 tabs daily. increase to 2 tab bid. told her to reduce if she gets loose stools. 02/11/19: she's taking 2 to 4 tabs daily, no side efx, good results 10/21/19: leg cramps better but now on keto and cramps starting back up. will look for electrolytes packet. continue Mg G 500mg 2 tabs BID. 05/03/20: we reviewed all her med bottles together including Mg, turns out even at 2 tabs bid, she'sonly getting ~50% of CYLINDER GRINDER of Mg, will inc to 3 to 4 tabs bid, which will get her close to 100%, she also needed inc of omeprazole dose for heartburn sxs, which may further inhibit ability to absorb Mg. 01/11/21: switch to high absorb Mg form 02/08/21: persistent leg/foot/hand cramps, worsening, Serum low Mg 1.5, see hypomg section above. ?? 5. Vitamin D deficiency - 03/06/18 vit D 20ng/ml, start D3 4000 i.u. daily 02/11/19: vit D 34ng/ml on 11/20/18, reduce to vit D3 4000 i.u. daily 10/21/19: vit D at 47 on 03/25/19 while taking 8000 iu, can take vit D3 4000 i.u. will recheck in 6 months. 01/11/21: vitamin D3 4000 iu daily now, will check level and adj dose as needed 02/08/21: cont same dose of vit D 4000 iu daily 05/16/21: recheck level ,redose as needed 01/09/22: Is taking D3 4000 iu daily, will recheck level. 03/27/22: labs ordered 07/24/22: continue D3 4000 iu daily, her total vit D in 40s, appropriate on this dose ?? 6. Daytime somnolence - ESS on consult 05/15/18 ESS on cpap 10 to 18cm, increase pressure to see if it will improve. also trial of B complex vitamins. check B12 level. would consider modafinil if not improved. 02/11/19: ESS 05/10 on apap 13 to 19cm. also on modafinil 100mg PRN (via Ken), b complex vitamins 10/21/19: ESS 10/10on apap 14 to 19cm and keto/IF lifestyle. rarely take modafinil 100mg now. still taking b complex and b12. 05/03/20: ESS 05/10 on apap 14 to 19cm, higher due to just getting over food poisoning episode, on b complex, told her to try stopping b12, as there is already b12 in b complex. 02/08/21: elevated today , but not her norm on cpap 05/16/21: will Rx her armodafinil 250mg, started by her pcp ken who no longer works there, drug contract sent , let her know I will Rx as long as she uses her bipap 01/09/22: ESS 0 today. 08/08: normal today, pt feels Vyvanse 40mg qAM and 10mg qPM that she gets for ADHD via other practitioner, are working well for her hypersomnia too. she never ended up trying Sunosi and does not seeneed anymore, dc/ing order. ?? 7. Restless legs - 01/2018: Patient was started Ferrous Sulfate 325mg + Vit C 500mg daily for borderline low Ferritin 47ng/ml for RLS.. Vitamin D 4000 i.u. daily around same time for deficiency. 05/16/18: ferr 50ng/ml, ok to stop iron as she does not perceive RLS anymore. RLS as she is falling asleep or relaxing in evening, no PLMD seen on either PSGs 10/21/19: gets RLS in evening, after she takes melatonin 10mg which she needs to help her fall asleep. she was borderline on ferritin level in past. will re- start FeSu 325mg + vit C and check in about 6 months 05/03/20: taking melatonin 10mg still, refills given, she got refills on FeSu 325mg via PCP who alsosaw her lab results (don't have access to them right now, requested 01/11/21: still having RLS sx when laying down to sleep, will check ferritin 02/08/21: low ferritin at 30. will start Iron supplement, FeSu 325mg daily with vit C 500mg 05/16/21: recheck ferritin level. she reports she was taking 65mg BID 01/09/22: Per patients request, will recheck ferritin level. 07/24/22: ferr in teens, low given RLS sxs, will start Fe Sulfate 325mg 1 tab daily x 90 days, then maintenance dose with mvi/fe (10 to 20mg range) 1 tab daily intermediate designer. ?? 8. Fatigue -??with history of B12 deficiency 12/03/18: inc to b complex 2 tabs bid as b12 went from 334 to 443 on 2 tabs daily. given fatigue, would aim it above 600. 10/21/19: cont, refills given, will recheck B12 level in 6 months 05/03/20: try d/c b12, but continue b-100 complex 1 tab bid 01/11/21, 01/09/22: recheck b12 level 07/24/22: B12 in 600 range, normal, continue b complex ?? 9. Allergic rhinitis - 12/03/18: nasal dryness and stuffiness. will try steroid nasal spray for at least 1 month. 02/11/19: she is using this, finds it helpful, however not covered by insurance so she's getting OTC 10/21/19, 05/03/20, 01/11/21: taking fluticasone (Rx'ed by Ken and covered by insurance now) w/ good results ?? 07/02/2023: Excellent bipap compliance. She has sleep onset insomnia. Has regimen via psych includes trazodone 100mg and hydroxyzine 50mg which she thinks is exacerbating her RLS. She gets RLS about 1 hour after taking it and gets RLS when she gets into bed. . - Pt takes lisinopril, trazodone 100 mg, magnesium, naproxen, Tylenol, famotidine, vitamin D, omeprazole, hydroxyzine at night, around 7pm. Pt also uses cannabis edibles or vape, which helps her fallasleep. It currently takes her 2 hours to fall asleep. She tends to crawl into bed around 8:30, watches a movie, turns on binaural beats around 10pm and tries to fall asleep. -Discussed starting gabapentin to help with RLS symptoms and??as it also has sedative effect can maybe dc trazodone and/or hydroxyzine. I wrote this down and pt plans to discuss this option with Brianne Poornima to make sure this does not disrupt her current med regimen. Recommend starting gabapentin 100 mg, increase by 1 tab every 5 days as needed, up to max 300 mg. At next visit if no side efx butnot enough effect can consider going further up to 600mg by 100mg increments as tolerated. ?? 07/19/2023: Recommend restarting hydroxyzine due to anxiety, insomnia, and because discontinuing did not help with RLS. Cont the Gabapentin trial - she notes possible nausea will cont to monitor.??Can try??taking gabapentin with food to help with nausea. Pt will increase to gabapentin 200 mg today.She may also increase up to 300 mg after about 5-7 days if needed. She also reported episodes when trying to take nap of paralysis and dizziness, lasting 30 minutes+ which sound too long for sleep paralysis, asked her to reach out to her PCP to further eval. Not having this currently. she is very stressed. ? Current Mask: DreamWear full face mask, large cushion, medium headgear (this is recalled and she got another mask via DME, waiting for shipment) Masks tried: p10 nasal pillows sm, no chin strap ? Today's Assessment and Plan: see 07/19/23 - BIPAP working well; excellent compliance and AHI reduction. Continue current settings. - Recommend restarting hydroxyzine due to anxiety, insomnia, and because discontinuing did not helpwith RLS. - She has had severe nausea preventing her from sleeping. Recommend taking gabapentin with food to help with nausea. Pt will increase to gabapentin 200 mg today. She may also increase up to 300 mg after about 5-7 days if needed. - She has also had episodes of paralysis with dizziness when resting, which lasted between 30 minutes to 1 hour. Educated pt on sleep paralysis; however, duration of episodes is not consistent with sleep paralysis. Pt was advised to discuss these episodes with her PCP. ?? Follow up: 1 month, sooner if needed. ?? Remote Scribed by Sayra Saul Problem List/Past Medical History Ongoing Cellulitis of right upper limb Chronic pelvic pain of female Daytime somnolence Fatigue Hemorrhoids Hypertensive disorder Hypomagnesemia Morbid obesity Obstructive sleep apnea Obstructive sleep apnea syndrome Pre-eclampsia Prediabetes Previous uterine surgical scar Prolonged QT interval Restless leg Restless legs Restless legs syndrome Urolithiasis Vitamin D deficiency Historical No qualifying data Procedure/Surgical History ??? delivery (07/12/2016)???Tubal ligation and Bilateral Salpingectomy (07/12/2016)??? delivery (01/16/2015)???Tonsillectomy Medications What How Much When Why Instructions New gabapentin (gabapentin 100 mg oral capsule) See instructions Obstructive sleep apnea Psychophysiologic insomnia Restless legs syndrome take 1 to 3 capsules PO at night, self titrate to symptoms; ONLY FILL WHEN PT REQUESTS ?? Pickup at [facility] Unchanged acetaminophen (Tylenol 8 Hour 650 mg oral tablet, extended release) 2 a day ?? Unchanged albuterol (albuterol 2.5 mg/ 3 mL (0.083%) inhalation solution) 3 Milliliters Nebulized inhalation (inhale using nebulizer) Every 4 hours as needed for wheezing Unchanged cholecalciferol (Vitamin D3 2000 intl units oral tablet) 2 tab Oral (given by mouth) Every day Unchanged Durable Medical Equipment for Prescription (Change [employer]) See instructions Current setting Bipap imax 20, krystle 11, PS 4 ?? DME: [facility] ?? Unchanged famotidine (famotidine 40 mg oral tablet) 1 at bedtime ?? Unchanged ferrous sulfate (ferrous sulfate 325 mg (65 mg elemental iron) oral tablet) 1 tab Oral (given by mouth) Every day 90 days only, no refills, after that use the MVI with Iron for maintenance ?? Unchanged fluticasone nasal (fluticasone 50 mcg/ inh nasal spray) 1 Sprays Nasal (into the nose) 2 times a day Unchanged fluticasone-salmeterol (Advair HFA 230 mcg-21 mcg/ inh inhalation aerosol) 2 Puffs Inhale (breathe in) 2 times a day Unchanged l-methylfolate (l-methylfolate 15 mg oral tablet) 1 tab Oral (given by mouth) Every day Unchanged lamoTRIgine (lamoTRIgine 200 mg oral tablet) 1 tab daily ?? Unchanged lamoTRIgine (lamoTRIgine 25 mg oral tablet) 2 tab Oral (given by mouth) Every day INCREASE IN DOSE TO 250MG DAILY CONTINUE TO MONITOR FOR RASH ?? Unchanged lisdexamfetamine (Vyvanse 40 mg oral capsule) 1 Capsules Oral (given by mouth) Every morning Unchanged lisinopril (lisinopril 40 mg oral tablet) 1 tab Oral (given by mouth) Every day Unchanged magnesium gluconate (Mag-G 500 mg oral tablet) See instructions Mag-G 27 mg magnesium (500mg); TAKE 3 TO 4 TABLETS BY MOUTH TWICE DAILY ?? Unchanged multivitamin (Vitamin B Complex oral capsule) 1 Capsules Oral (given by mouth) 2 times a day Duration: 90 Days Unchanged multivitamin with minerals (Multi-Day Plus Minerals oral tablet) 1 tab Oral (given by mouth) Every day Duration: 90 Days multivitamin with iron (10 to 20mg per tab is fine) ?? Unchanged naproxen (naproxen 500 mg oral tablet) 1 tab Oral (given by mouth) 2 times a day as needed for pain LESS IS BEST- TAKE ON THE DAYS YOU ARE HAVING KNEE PAIN ?? Unchanged omeprazole (omeprazole 40 mg oral delayed release capsule) 1 Capsules Oral (given by mouth) Every day Unchanged Other Prescription (lavender oil) Every day 1 daily ?? Unchanged traZODone (traZODone 100 mg oral tablet) 1 Tab at bedtime ?? Pharmacy Information [facility]: [address] [facility] [address], [place] [address] [phone] Allergies No Known Allergies No Known Medication Allergies Social History Alcohol Never Electronic Cigarette/Vaping Electronic Cigarette Use: Never. Home/Environment Lives with Children, Spouse. Nutrition/Health Caffeine intake amount: quit soad- coffee. Substance Use Marijuana- Comments: Edible daily Tobacco Former tobacco user Tobacco Use:. quit 8 years ago per day. Family History Autistic disorder: Other. Bladder cancer: Other. Breast cancer: Aunt/Uncle. Diabetes mellitus: Grandfather (M). Hypertensive disorder: Grandfather (M). Immunizations Vaccine Date Status SARS-CoV-2 (COVID-19) mRNA-1273 vaccine 10/25/2020 Recorded SARS-CoV-2 (COVID-19) mRNA-1273 vaccine 09/23/2020 Recorded influenza virus vaccine, live 06/29/2016 Recorded tetanus/diphth/pertuss (Tdap) adult/adol 06/16/2016 Recorded tetanus/diphth/pertuss (Tdap) adult/adol 01/05/2015 Recorded Electronically Signed on 07/19/23 10:30 AM Shauna Kramer MD Electronically Signed on 07/19/23 10:31 AM Shauna Kramer MD Reviewed by: Shauna Kramer MD Patient Care team information Care Team Personnel Name: Lizbeth Rose MD Position: No Access Member Role: Primary Care Physician Address: Address: [place] [address]- Care Team Related Persons Name: SOLITARIO, EVER Address: Home [address] [place], [place] [address] Name: GRAHAM JAMIL
--- OUTSIDE RECORDS SUMMARY | 2024-07-15 21:45 | XMS_ITS | Encounter Summary ---
Author Organization [facility] Address [facility] [place] [address] Care Team Providers Care Food Server Name Role Phone JacobsonDanyelbraden Caamra APRN Primary Care Provider + Encounter Details Date Type Department Care Team (Late st Contact Info) Description 02/27/2023 Telephone Obstetrics [place] [phone] Jennifer Blair MD [facility] [address] OBSTETRICS [place] [address] Social History Tobacco Use Types Packs/Day Years Used Date Smoking Tobacco: Former Smokeless Tobacco: Never Alcohol Use Standard Drinks/Week Comments Not Currently 0 (1 standard drink = 0.6 oz pur e alcohol) [facility] Inpatient Questions Answer Date Recorded Does Anyone Try to Keep You From Having Contact with Others or Doing Things Outside Your Home? unable to answer (comment required) 02/21/2023 Feels Threatened by Someone unable to an swer (comment required) 02/21/2023 Feels Unsafe at Home or Work/School unab le to answer (comment required) 02/21/2023 Physical Signs of Abuse Present no 02/21/2023 Sex and Gender Information Value Date Recorded Sex Assigned at Not on file Gender Identity Female 09/20/2020 2:54 PM EST Sexual Orientation Not on file documented as of this encounter Miscellaneous Notes * Telephone Encounter - Jennifer Blair MD - 02/27/2023 6:38 PM EDT Images from the original note were not included. Phone Note Called Cecilia to review benign path from recent ECC, hysteroscopy, D&C Of note, pap and HPV testing still pending. H/o AUB and CAROLEE III s/p prior LEEP. Call went to voicemail so will send myDH message to let me know when available on the phone to review and discuss plan. Tanya has expressed interested in a hysterectomy. She likely will benefit from working on weight reduction as I discussed with her to make the surgery more feasible and safe. Can inquire if she would like another referral to [facility]. I do feel a hysterectomy would be challenging given the limited posterior cervix s/p LEEP (I.e. would be difficult placing uterine manipulator) - best chance is with long graves (not single sided) from clinic or to pass digitally over fingers. If use the long graves that is not single sided as long single sided is too short, then would need to pass uterine manipulator and take apart speculum to remove. Requested secretaries put note in chart for Cecilia to see Dr. Blair if needs general Client Engagement Manager care as Dr. Blair has done many of the exams. Jennifer Blair MD documented in this encounter Plan of Treatment Not on file documented as of this encounter Visit Diagnoses Not on filedocumented in this encounter Care Teams Food Server Relationship Specialty Start Date End Date Trisha Jacobson APRN [address] [place] [address] PCP - General 07/29/21 documented as of this encounter
--- OUTSIDE RECORDS SUMMARY | 2024-07-15 21:45 | XMS_ITS | Encounter Summary ---
Author Organization [facility] [place] [address] Care Team Providers Care Water Filterer Name Role Phone Trisha Jacobson APRN Primary Care Provider + Encounter Details Date Type Department Care Team (Late st Contact Info) Description 02/01/2023 Telephone Obstetrics [place] [phone] Gertrude Triplett Social History Tobacco Use Types Packs/Day Years [...] on filedocumented in this encounter Care Teams Water Filterer Relationship Specialty Start Date End Date Trisha Jacobson APRN [address] [place] [address] PCP - General 07/29/21 documented as of this encounter
--- OUTSIDE RECORDS SUMMARY | 2024-07-15 21:45 | XMS_ITS | Continuity of Care Document ---
Author Organization [facility] Address [address] [place] [address] Care Team Providers Care Hvac Service Tech Name Role Phone SeamusDiane Primary Care Physician Encounter [facility] [id number] Date(s): 02/12/24 - 02/12/24 [facility] [address] [place] [address] Encounter Diagnosis Obstructive sleep apnea syndrome(Discharge Diagnosis) - 02/12/24 Restless legs syndrome(Discharge Diagnosis) - 02/12/24 Discharge Disposition: Home or Self Care Attending Physician: Shauna Kramer MD Allergies, Adverse Reactions, Alerts No Known Allergies Assessment and Plan Extracted from: Title:Sleep Clinic - Office Visit Note Author:Shauna Landa MD Date:02/12/24 1.??Obstructive sleep apnea syndrome??G47.33 Actions: FUTURE - Follow-Up Appointment Request [facility], *Est. 11/14/24 +/- 28 days, Future Order, bipap compliance, rls, In [facility] ?? 2.??Restless legs syndrome??G25.81 Actions: FUTURE - Follow-Up Appointment Request [facility], *Est. 11/14/24 +/- 28 days, Future Order, bipap compliance, rls, In [facility] ?? Telehealth Visit conducted via continuous, real-time Video and Audio connection, with patient at??home??and physician in??clinic. The risks and benefits of the use of this alternative platform were discussed with the patient (and/or guardian) and verbal consent was obtained. My assessment and plans are based on limited physical examination. Further evaluation, including in-person examination, may be needed depending on the response to management or today's recommendation. Verbal consent was obtained to conduct this telehealth visit in place of in-person visit due to Covid-19 precautions, and patient (or parent/guardian) is aware this visit will be billed to patient's health insurance. ?? I provided greater than?40??minutes in the care of this patient including chart review and documentation, more than half the time was spent in [id number] counseling. ? 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 Presents for??sleep follow-up. ?? Comorbidities??include: ?Extremely Severe Obstructive Sleep Apnea and Extremely Severe Nocturnal Hypoxemia, Anxiety, GERD, Depression, RLS and Morbid Obesity BMI 66, IBS with gluten sensitivity ? Clinical Data Reviewed:? Regent Sleepiness Scale:?? /24??(02/12/2024) ?? Regent Sleepiness Scale:?? 0??(10/31/2023) Regent Sleepiness Scale:?? 2??(08/28/2023) ESS - Regent Sleepiness Scale Total: 5 (07/24/22) ESS - Regent Sleepiness Scale Total: 1 (03/27/22) Regent Sleepiness Scale: 3 (07/02/23) Regent Sleepiness Scale: 2/ (07/19/23) ? 08/30/2023: Mg 1.5, B12 541, T4 1.4, TSH 2.84, Ferritin 9, Vitamin D 46 ? Machine Download Data:??[employer] Dreamstation Auto BIPAP?? PAP Settings: ?? Auto BIPAP?? IMAX 20 Leora 11 PS 4 CmH2O Date Range:?12/25/23 - 01/24/24 Days with Usage >=4 hours:?? 87.1% Avg Usage per Day Used:?? 7hr 19min Mean/Median Pressure:?16.5/12.5 90th-tile/95th-tile Pressure:?19.0/15.0 ? Avg Time in Large Leak Daily?? 7min 23sec Avg Treatment ??AHI: 0.4/hr? Sleep Clinical Timeline:? Due to snoring, witnessed apneas, excessive daytime [...] montage. Normal sleep efficiency. Decreased REM sleep (technical advisor woke up patient during REM due to concern of very low O2 and onset of ectopic beats) ?? She was given SENA results follow up and started on cpap immediately, with technical advisor who did mask fitting after clinic on [...] Index 0.8/hr. Periodic Limb Movement Arousal Index 0/hr. No significant arrhythmia. No Yvan-Naik Respiration. No parasomnias. [...] desaturations including during supine REM sleep. BIPAP 16/62kgF2P worked well for Supine NREM sleep. BIPAP 15/23wdB1S worked well for Lateral NREM sleep. 3. Adequate oxygenation was maintained on tested pressures 4. CPAP was tried and failed. Patient felt BIPAP was better tolerated than CPAP. Interface problems did not contribute to CPAPs inability to control the patient's sleep apnea. 5. Respironics DreamWear, Full Face Mask with Large Cushion and Medium Headgear, showed acceptable leak profile. 6. Ambien 5mg was used as sleep aid for this sleep study. Normal sleep efficiency noted SE 91% 7. Recommend Auto BIPAP Imax 20 cm H2O Leora 11 cm H2O and PS 4 cm H2O. order sent to [facility] on 01/20/21. ?? 1. Obstructive sleep apnea [...] cm and 90- tile at 14.4cm. tx AHI adequate at 1/hr. will increase slightly to auto cpap 12 to 19cm due to residual hypersomnia. via p10 small nasal pillows. 12/03/18: inc to apap 13 to [id number] for pt comfort as she experiences intermittent feelings of suffocation. machine otherwise working well. 02/12/19: inc to apap 14 to 19cm for pt comfort due to feeling suffocating upon putting it on and in middle of night. no mask leak issues. tx AHI 0.5/hr. 01/11/21: requesting titration PSG due to residual hypersomnia despite using cpap, tried 's bipap and felt much better, had 4 pna episodes , ? hypoxemia. will send new machine order after PSG done 02/08/21: requested auto bipap imax 20 leora 11 ps 4cm machine via [facility]. pt waiting to get it in mail. will plan for f2f visit in February or [...] based on sxs, also pt says her labs show low Mg, will request copy from PCP office. 01/11/21: ordered Mg level 01/19/21 :Mg level moderately low at 1.5ng/ml. 02/08/21: patient has been taking 4 tabs magnesium glycinate 100mg BID (total 8 tabs daily) for last 2 weeks and still has not had any improvement, with persistent severe hand, calve and foot cramps. she has historically taken magnesium oral supplement before and has low serum magnesium levels (1.5, 1.5, 1.4, etc). We will arrange for IV [...] obesity -on consult, BMI 73. enrolling in [facility] bariatric surgery program at suggestion of her PCP Ken Alexandre. We discussed the relationship of MEY and weight, she is very aware, and hopes to lose weight after MEY is treated. 12/03/18: commended her for cutting soda out and working to eat more vegetables and unprocessed foods! keep up good work 02/11/19: she fell off the diet but wants to go back. 10/21/19: restarted on sep 17 keto diet + IF 16 hr 5 d/wk. feeling inches come off already and some wt loss too. she is getting cramps, drinking zero [...] turns out even at 2 tabs bid, she's only getting ~50% of MOTOR RACER of Mg, will inc to 3 to [...] ended up trying Sunosi and does not see need anymore, dc/ing order. ?? 7. Restless legs [...] borderline on ferritin level in past. will re-start FeSu 325mg + vit C and check in about 6 months 05/03/20: taking melatonin 10mg still, refills given, she got refills on FeSu 325mg via PCP who also saw her lab results (don't have access to [...] (10 to 20mg range) 1 tab daily custodial. ?? 8. Fatigue -??with history of B12 [...] cannabis edibles or vape, which helps her fall asleep. It currently takes her 2 hours to [...] At next visit if no side efx but not enough effect can consider going further up [...] having this currently. she is very stressed. ?? 08/28/2023: She has been taking Doctor's Best Magnesium 4 pills 2x a day, recently ran out and c/o feeling nauseated, lightheaded, palpitations, tremors, hot and cold flashes. Recommend take Mg during AM and Gabapentin in PM to avoid chelating??effect.??As gabapentin not effective for her RLS, will check labs +??try??increase gabapentin, titrate up to 600mg daily (+100mg every 3-5 days). Rx sent for Mg gluconate 3-4 tabs daily and Vit D 4000iu daily. Check iron, ferritin, Vit D, Mg,??and B12 for ongoing RLS/worsening sx. ?? 10/31/2023: RLS continues to be a problem and she is only about to sleep 4-5 hrs a night, poorly. Her RLS is same, off vs on gabapentin, I think due to her nutritional deficiencies. I suspect will improve after??adequate supplementation.??Ferritin 9 on Aug lab work . Rx sent for Vit D 10,000iu x3 caps (30kiu) qWeekly and start FeSul 325mg BID/TID [id number] + add Vit C 5000mg with the iron. Recommended Dmitri's Restful Legs supplement as rx rls meds side efx not acceptable for her. Off gabapentin completely d/t??brain fog, worsened ADHD,??increased dose of Hydroxzyine. ?? 02/12/2024: RLS worse, now present day and night.??She tried and did not find Gabapentin effective, she??does not wish to try dopaminergic agonist (ropinirole or pramipexole) due to concern of binge/impulse behaviors as side effect. At this point I think she needs to work on??nutritional??factors which can affect RLS a lot - given it's a complex whole systems issue for her (GI symptoms, mal absorption) she will work with her PCP. ??She had to stop PO iron due to intolerance of side efx (took november) found that when she took it she had cxp, palpitations, and racing HR. She is taking Vit D 5k iu daily and Mg oxide 1200mg BID (has diarrhea d/t IBS and gluten intolerance, just started dietary enzymes and fiber). ?? Current Mask: DreamWear full face mask, large cushion, medium headgear (this is recalled and she got another mask via DME, waiting for shipment) Masks tried: p10 nasal pillows sm, no chin strap Meds tried: gabapentin (worse ADHD, brain fog, can't focus, poor impulse control, worse anxiety and depression); ?Cecilio's Restful legs OTC (not effective) ?? Meds Considered: Dopaminergic agonist for RLS (pt has hx of impulse buying/binge shopping) ?? Lab Value Targets given RLS: Ferritin target 75 to 100ng/ml; 25 oh Total Vitamin D total target 40 to 70ng/ml; Magnesium 2.0 ? Today's Assessment and Plan: ?? bipap compliance reviewed and discussed with the pt. She has excellent compliance and MEY is well treated. She does note that she has been sweating more at night, recommend keeping tube temp low. For dry mouth, recommend turning humidity to 1, as her settings show that her humidity is off but she does put water in her machine nightly. ?? RLS and med regimen reviewed. Pt states that the last she heard, her ferritin was low end of normal but not target range of 75. PO iron not tolerated. Gabapentin not tolerated d/t anxiety and depression. Cecilio's restful legs supplement ineffective. We reviewed the past results of her labs again today. ?? Given pt has complex case of intolerance and GI issues and what sounds like malabsorption: she will work with her PCP on the nutritional parameters. I wonder if pt may benefit from iron infusion, mg infusion if that remains low.??Pt states she plans to call her pcp and follow up for repeat blood work. Advised also check Vit D and B12. ?? Targets given RLS: Ferritin target 75 to 100ng/ml; 25 oh Total Vitamin D total target 40 to 70ng/ml; Magnesium 2.0 ? Follow up: ?? 9 months or sooner if needed. ?? In meantime she will work with her PCP on the above targets that will help with her RLS. ?? Remote Scribed by??Chikis Ramos ? Future Appointments Future Scheduled Tests Laboratory* Magnesium Level 08/28/23 * Vitamin B12 Level 08/28/23 * Ferritin 08/28/23 * TSH w/ Rflx to Free T4 08/28/23 * Vitamin D, 25-OH Total [facility] 08/28/23 Immunizations Given and Recorded Vaccine Date Status [...] DME company, Current setting Bipap imax 20, leora 11, PS 4 DME: [facility] Supply, See instructions, # 1 EA, 0 Refill(s), other reason (Rx) Start Date: 03/29/22 Status: Ordered famotidine 40 mg oral tablet 1 at bedtime, 0 Refill(s) Start Date: 07/02/23 Status: Ordered ferrous sulfate 325 mg (65 mg elemental iron) oral tablet 325 mg = 1 tab, Oral, TID, take with 250 to 500mg vit C to increase absorption, # 270 tab, 1 Refill(s), Pharmacy: [facility], 163, cm, 10/31/23 9:19:00 EST, Height, 158.76, kg, 10/31/23 9:20:00 EST, Weight Dosing Start Date: 10/31/23 Stop Date: 04/28/24 Status: Ordered fluticasone 50 mcg/inh nasal spray 1 sprays, Nasal - Both Sides, BID Start Date: 06/09/22 Status: Ordered l-methylfolate 15 mg oral tablet [...] Mag-G 500 mg oral tablet See Instructions, Mag Gluconate 27 mg magnesium (500mg); TAKE 3 TO 4 TABLETS BY MOUTH TWICE DAILY, # 720 tab, 3 Refill(s), Pharmacy: [facility], 163, cm, 08/28/23 8:18:00 EST, Height, 167.83, kg, 08/28/23 8:20:00 EST, Weight Dosing Start Date: 08/28/23 Status: Ordered magnesium oxide 400 mg (241.3 mg elemental magnesium) oral tablet See Instructions, Take 1 to 3 tabs by mouth 3 times daily, # 270 tab, 5 Refill(s), Pharmacy: [facility], 163, cm, 02/12/24 8:44:00 EDT, Height, 154.22, kg, 02/12/24 8:46:00 EDT, Weight Dosing Start Date: 02/12/24 Status: Ordered melatonin 10 mg oral tablet 10 mg = 1 tab, Oral, every night at bedtime, PRN as needed for insomnia, # 200 tab, 0 Refill(s) Start Date: 02/12/24 Status: Ordered Multi-Day Plus Minerals oral tablet 1 tab, Oral, Daily, multivitamin with iron (10 to 20mg per tab is fine), # 90 tab, 3 Refill(s), Pharmacy: [facility] Start Date: 07/24/22 Stop Date: 07/19/23 [...] 0 Refill(s) Start Date: 07/02/23 Status: Ordered Viibryd 0 Refill(s) Start Date: 02/12/24 Status: Ordered Vitamin B Complex oral capsule 1 cap, Oral, BID, # 180 cap, 3 Refill(s), Pharmacy: [facility], 163, cm, 08/28/23 8:18:00EST, Height, 167.83, kg, 08/28/23 8:20:00 EST, Weight Dosing Start Date: 08/28/23 Stop Date: 08/22/24 Status: Ordered Vitamin D3 10,000 intl units oral capsule 750 mcg = 3 cap, Oral, every week, # 39 cap, 3 Refill(s), Pharmacy: [facility], 163, cm, 10/31/23 9:19:00 EST, Height, 158.76, kg, 10/31/23 9:20:00 EST, Weight Dosing Start Date: 10/31/23 Stop Date: 10/25/24 Status: Ordered Vyvanse 40 mg oral capsule [...] recent to oldest [Reference Range]: 1 Weight 154.22 kg (02/12/24 8:44 AM) Weight Measured (lbs) 339.996 lb (02/12/24 8:44 AM) Weight Dosing 154.220 kg (02/12/24 8:44 AM) Height 163 cm (02/12/24 8:44 AM) Height/Length Measured (inches) 64.17 in ch (02/12/24 8:44 AM) BSA Measured 2.64 m2 (02/12/24 8:44 AM) Body Mass Index 58.05 kg/m2 (02/12/24 8:44 AM) Social History Social History Type Response Tobacco Former tobacco user Tobacco Use:. quit 8 years ago per day. Sex Female Progress note * Hernan Nation: PERFORM Event Display: Progress Note - Physician Authored Date: [id number] Physician Outpatient Note * Shauna Kramer MD: PERFORM, MODIFY Event Display: Office Clinic Note Physician Authored Date: [id number] JUAN A SOLITARIO :1985 Age:39 years Sex:Female Visit Date:02/12/2024 Primary Care Physician: Seamus, Diane GROUT PUMP OPERATOR-C Chief Complaint CC: Diane Way, RAW STOCK DYEING MACHINE TENDER ?? bipap compliance, rls History of Present Illness States things are going well with her bipap and she does not have any concerns with it. She changedher bipap supplies recently.?? She is finding that she is sweating at lot more at night lately. She also states she has dry mouth all the time. Not sure if her humidifer is on or not. ?? She is noticing RLS symptoms during the day which she didn't notice before. now is day and night.??RLS gets really bad around the time she is about to fall asleep. She states she stopped taking iron awhile ago because of the side efx. Off for probably a few months around November. Reports that every time she would take it her chest would hurt and she would have heart palpitions and hr would be fast. States her coworker called an ambulance one time because of it.? She started taking melatonin 10mg at bedtime and is falling asleep faster, so she can fall asleep thru the RLS/pain.?? Review of Systems A 10-point REVIEW OF SYSTEM was obtained and reviewed, includes CONSTITUTIONAL, EYES, NOSE, THROAT,RESPIRATORY, HEART, GASTROINTESTINAL, UROLOGIC, MUSCULOSKELETAL, PSYCHIATRY, SKIN systems. Pertinent symptoms are discussed in history, otherwise negative. Physical Exam Vitals & Measurements HT:??163??cm?? WT:??154.22??kg?? BMI:??58.05?? BSA:??2.64?? General:??well appearing, appearing stated age, no acute distress,??obese??build PSYCHIATRIC: well groomed, fluent speech, good insight, linear thought process, good eye contact,balanced??affect NEUROLOGIC: alert, oriented, symmetric facial expression Clinic Assessment/Plan 1.??Obstructive sleep apnea syndrome??G47.33 Actions: FUTURE - Follow-Up Appointment Request [facility], *Est. 11/14/24 +/- 28 days, Future Order, bipap compliance, rls, In [facility] ?? 2.??Restless legs syndrome??G25.81 Actions: FUTURE - Follow-Up Appointment Request [facility], *Est. 11/14/24 +/- 28 days, Future Order, bipap compliance, rls, In [facility] ?? Telehealth Visit conducted via continuous, real-time Video and Audio connection, with patient at??home??and physician in??clinic. The risks and benefits of the use of this alternative platform were discussed with the patient (and/or guardian) and verbal consent was obtained. My assessment and plansare based on limited physical examination. Further evaluation, including in-person examination, maybe needed depending on the response to management or today's recommendation. Verbal consent was obtained to conduct this telehealth visit in place of in-person visit due to Covid-19 precautions, and patient (or parent/guardian) is aware this visit will be billed to patient's health insurance. ?? I provided greater than??40??minutes in the care of this patient including chart review and documentation, more than half the time was spent in [id number] counseling. ?? 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 ?? Comorbidities??include: ?Extremely Severe Obstructive Sleep Apnea and Extremely Severe Nocturnal Hypoxemia, Anxiety, GERD, Depression, RLS and Morbid Obesity BMI 66, IBS with gluten sensitivity ?? Clinical Data Reviewed:? Regent Sleepiness Scale:?? /24??(02/12/2024) Regent Sleepiness Scale:?? 0/24??(10/31/2023) Regent Sleepiness Scale:?? 2??(08/28/2023) ESS - Regent Sleepiness Scale Total: 5 (07/24/22) ESS - Regent Sleepiness Scale Total: 1 (03/27/22) Regent Sleepiness Scale: 3 (07/02/23) Regent Sleepiness Scale: 2/24 (07/19/23) ?? 08/30/2023: Mg 1.5, B12 541, T4 1.4, TSH 2.84, Ferritin 9, Vitamin D 46 ?? Machine Download Data:??Respironics Dreamstation Auto BIPAP?? PAP Settings: ??Auto BIPAP?? IMAX 20 Leora 11 PS 4 CmH2O Date Range:?12/25/23 - 01/24/24 Days with Usage >=4 hours:?? 87.1% Avg Usage per Day Used:?? 7hr 19min Mean/Median Pressure:?16.5/12.5 90th-tile/95th-tile Pressure:?19.0/15.0 Avg Time in Large Leak Daily?? 7min 23sec Avg Treatment ??AHI: 0.4/hr? Sleep Clinical Timeline:? Due to snoring, witnessed apneas, excessive daytime [...] montage. Normal sleep efficiency. Decreased REM sleep (nedra carlson woke up patient during REM due to concernof very low O2 and onset of ectopic beats) ?? She was given SENA results follow up and started on cpap immediately, with technical advisor who did mask fitting after clinic on [...] desaturations including during supine REM sleep. BIPAP 16/41ewF4C worked well for Supine NREM sleep. BIPAP 15/08vkG5K worked well for Lateral NREM sleep. 3. [...] Recommend Auto BIPAP Imax 20 cm H2O Leora 11 cm H2O and PS 4 cm H2O. order sent to [facility] on 01/20/21. ?? 1. Obstructive sleep apnea [...] pillows. 12/03/18: inc to apap 13 to [id number] for pt comfort as she experiences intermittent [...] done 02/08/21: requested auto bipap imax 20 leora 11 ps 4cm machine via [employer]. pt waiting to get it in mail.will [...] obesity -on consult, BMI 73. enrolling in [facility] bariatric surgery program at suggestion ofher PCP [...] 2 tabs bid, she'sonly getting ~50% of MOTOR RACER of Mg, will inc to 3 to [...] (10 to 20mg range) 1 tab daily physical therapist assistant. ?? 8. Fatigue -??with history of B12 [...] plans to discuss this option with Brianne Noguera to make sure this does not disrupt [...] having this currently. she is very stressed. ?? 08/28/2023: She has been taking Doctor's Best Magnesium 4 pills 2x a day, recently ran out and c/o feeling nauseated, lightheaded, palpitations, tremors, hot and cold flashes. Recommend take Mg during AM and Gabapentin in PM to avoid chelating??effect.??As gabapentin not effective for her RLS, willcheck labs +??try??increase gabapentin, titrate up to 600mg daily (+100mg every 3-5 days). Rx sent for Mg gluconate 3-4 tabs daily and Vit D 4000iu daily. Check iron, ferritin, Vit D, Mg,??and B12 for ongoing RLS/worsening sx. ?? 10/31/2023: RLS continues to be a problem and she is only about to sleep 4-5 hrs a night, poorly. Her RLS is same, off vs on gabapentin, I think due to her nutritional deficiencies. I suspect will improve after??adequate supplementation.??Ferritin 9 on Aug lab work . Rx sent for Vit D 10,000iu x3 ca ps (30kiu) qWeekly and start FeSul 325mg BID/TID [id number] + add Vit C 5000mg with the iron. Recommended Dmitri's Restful Legs supplement as rx rls meds side efx not acceptable for her. Off gabapentin completely d/t??brain fog, worsened ADHD,??increased dose of Hydroxzyine. ?? 02/12/2024: RLS worse, now present day and night.??She tried and did not find Gabapentin effective,she??does not wish to try dopaminergic agonist (ropinirole or pramipexole) due to concern of binge/impulse behaviors as side effect. At this point I think she needs to work on??nutritional??factors which can affect RLS a lot - given it's a complex whole systems issue for her (GI symptoms, mal absorption) she will work with her PCP. ??She had to stop PO iron due to intolerance of side efx (took november) found that when she took it she had cxp, palpitations, and racing HR. She is taking Vit D 5k iu daily and Mg oxide 1200mg BID (has diarrhea d/t IBS and gluten intolerance, just started dietary enzymes and fiber). ?? Current Mask: DreamWear full face mask, large cushion, medium headgear (this is recalled and shegot another mask via DME, waiting for shipment) Masks tried: p10 nasal pillows sm, no chin strap Meds tried: gabapentin (worse ADHD, brain fog, can't focus, poor impulse control, worse anxiety anddepression); Acadia's Restful legs OTC (not effective) Meds Considered: Dopaminergic agonist for RLS (pt has hx of impulse buying/binge shopping) Lab Value Targets given RLS: Ferritin target 75 to 100ng/ml; 25 oh Total Vitamin D total target 40 to 70ng/ml; Magnesium 2.0 ?? Today's Assessment and Plan: bipap compliance reviewed and discussed with the pt. She has excellent compliance and MEY is well treated. She does note that she has been sweating more at night, recommend keeping tube temp low. Fordry mouth, recommend turning humidity to 1, as her settings show that her humidity is off but she does put water in her machine nightly. ?? RLS and med regimen reviewed. Pt states that the last she heard, her ferritin was low end of normalbut not target range of 75. PO iron not tolerated. Gabapentin not tolerated d/t anxiety and depression. Acadia's restful legs supplement ineffective. We reviewed the past results of her labs again today. ?? Given pt has complex case of intolerance and GI issues and what sounds like malabsorption: she willwork with her PCP on the nutritional parameters. I wonder if pt may benefit from iron infusion, mg infusion if that remains low.??Pt states she plans to call her pcp and follow up for repeat blood work. Advised also check Vit D and B12. ?? Targets given RLS: Ferritin target 75 to 100ng/ml; 25 oh Total Vitamin D total target 40 to 70ng/ml; Magnesium 2.0 ? Follow up: 9 months or sooner if needed. In meantime she will work with her PCP on the above targets that will help with her RLS. ?? Remote Scribed by??Chikis Ramos ?? Problem List/Past Medical History Ongoing Cellulitis of right upper limb Chronic pelvic pain of female Daytime somnolence Fatigue Hemorrhoids Hypertensive disorder Hypomagnesemia Morbid obesity Obstructive sleep apnea Obstructive sleep apnea syndrome Pre-eclampsia Prediabetes Previous uterine surgical scar Prolonged QT interval Restless leg Restless legs Restless legs syndrome Urolithiasis Vitamin D deficiency Historical No qualifying data Procedure/Surgical History ??? delivery (07/13/2016)???Tubal ligation and Bilateral Salpingectomy (07/13/2016)??? delivery (2015)???Tonsillectomy Medications What How Much When Instructions Unchanged acetaminophen (Tylenol 8 Hour 650 mg oral tablet, extended release) 2 a day ?? Unchanged albuterol (albuterol 2.5 mg/ 3 mL (0.083%) inhalation solution) 3 [place]iliters Nebulized inhalation (inhale using nebulizer) Every 4 hours as needed for wheezing Unchanged cholecalciferol (Vitamin D3 10,000 intl units oral capsule) 3 Capsules Oral (given by mouth) Every week Duration: 90 Days Unchanged Durable Medical Equipment for Prescription (Change DME company) See instructions Current setting Bipap imax 20, leora 11, PS 4 ?? DME: [facility] ?? Unchanged famotidine (famotidine 40 mg oral tablet) 1 at bedtime ?? Unchanged ferrous sulfate (ferrous sulfate 325 mg (65 mg elemental iron) oral tablet) 1 tab Oral (given by mouth) 3 times a day Duration: 90 Days take with 250 to 500mg vit C to increase absorption ?? Unchanged fluticasone nasal (fluticasone 50 mcg/ [...] (Mag-G 500 mg oral tablet) See instructions Mag Gluconate 27 mg magnesium (500mg); TAKE 3 TO 4 TABLETS BY MOUTH TWICE DAILY ?? Unchanged magnesium oxide (magnesium oxide 400 mg (241.3 mg elemental magnesium) oral tablet) See instructions Take 1 to 3 tabs by mouth ??3 times daily ?? Unchanged melatonin (melatonin 10 mg oral tablet) 1 tab Oral (given by mouth) Every night at bedtime as needed for as needed for insomnia Unchanged multivitamin (Vitamin B Complex oral capsule) [...] oral tablet) 1 Tab at bedtime ?? Unchanged vilazodone (Viibryd) Allergies No Known Allergies No Known Medication [...] (Tdap) adult/adol 01/05/2015 Recorded Electronically Signed on 02/12/2024 11:41 EDT Shauna Kramer MD Reviewed by: Shauna Kramer MD Patient Care team information Care Team Personnel Name: Diane Way GROUT PUMP OPERATOR-C Position: No Access Member Role: Primary Care Physician Address: Address: [address] [place] [address] [address] [place] [address]- Care Team Related Persons Name: EVER SOLITARIO Address: Home [address] [place] [id number] Name: GRAHAM JAMIL
--- OUTSIDE RECORDS SUMMARY | 2024-07-15 21:45 | XMS_ITS | Encounter Summary ---
Author Organization [facility] Address [facility] [place] [address] Care Team Providers Care Field Supervisor [employer] Name Role Phone Trisha Jacobson APRN Primary Care Provider + Reason for Visit * Reason Comments Establish Care * Consultation (Routine) - Closed Specialty Diagnoses / Procedures Referred By Nakia anderson Referred To Contact General Surgery Diagnoses Gastric reflux CONSIDERATION FOR ANTI REFLUX SURG Kevin Cleveland MD [address] [place] [address] [address] [place] [address] [facility] Gen Surgery [address] [address] Referral ID Status Reason Start Date Expiration Date V isits Requested Visits Authorized [id number] Closed Consult, Test & Treat PCP Updated and/or Approved 01/12/2023 01/12/2024 6 6 Encounter Details Date Type Department Care Team (Latest Contact Info) Description 02/28/2023 3:00 PM EDT Office [place] [address] Cristine Francis MD [facility] [place] [address] Gastroesophageal reflux disease, unspecified whether esophagitis present; Morbid obesity with BMI of 60.0-69.9, adult Social History Tobacco Use Types Packs/Day Years Used Date Smoking Tobacco: Former Smokeless Tobacco: Never Alcohol Use Standard Drinks/Week Comments Not Currently 0 (1 standard drink = 0.6 oz pur e alcohol) [facility] Inpatient Questions Answer Date Recorded [...] Sign Reading Time Taken Comments Blood Pressure 140/67 02/28/2023 3:14 PM EDT Pulse 97 02/28/2023 3:14 PM EDT Temperature 36.6 ??C (97.9 ??F) 02/28/2023 3:14 PM ED T Respiratory Rate 16 02/28/2023 3:14 PM EDT Oxygen Saturation 100% 02/28/2023 3:14 PM EDT Inhaled Oxygen Concentration - - Weight 172.4 kg (380 lb 1.6 oz) 02/28/2023 3:14 PM EDT Height 162.6 cm (5' 4.02) 02/28/2023 3:14 PM ED T Body Mass Index 65.21 02/28/2023 3:14 PM EDT documented in this encounter Progress Notes * Cristine Francis MD - 02/28/2023 3:00 PM EDT Cecilia Connelly is a 38 y.o. female referred by Trisha Jacobson APRN for evaluation of symptomatic gastroesophageal reflux disease and consideration for surgical management. She describes problems with reflux symptoms for since her early teenage years. The symptoms includeheartburn which is decreased with PPI therapy. She also experiences regurgitation on a regular basis. Her symptoms are otherwise summarized as follows: Heartburn - Burning - better but not resolved with meds Regurgitation - 1-2 times a week Post prandial chest pain - has gotten better Dysphagia - Getting better Globus - Yes Epigastric pain - Yes Sour taste - No Chronic cough - Yes Voice changes - By the end of the day Post prandial shortness of breath - Sometimes Melena/Iron deficiency anemia - Borderline HARSHAD whole life. No melena Nausea/vomiting - Did have significant nausea, better now that she is gluten free Diarrhea/constipation - Chronic diarrhea 5-6 times a day Antacids - Omeprazole 40 bid, famotidine once at night Symptoms have improved with diet changes including being gluten free, eating smaller meals, and avoiding dairy. Ms. Connelly's workup to date includes: Upper endoscopy 01/04/23: LA grade B esophagitis, Non obstructing Schatzki ring. No mention of hiatal hernia. Manometry: None [facility]: Normal Past Medical History: Patient Active Problem List Diagnosis Code CAROLEE III (cervical intraepithelial neoplasia III) D06.9 BMI 60.0-69.9, adult Z68.44 Abnormal uterine bleeding (AUB) N93.9 Hypertension Chronic ear infections IBS Past Surgical History: Procedure Laterality Date SECTION 2014 SECTION 2015 CHG CYTOPATH,CERV/VAG,AUTO THIN LAYER,INTERP N/A 02/21/2023 PAP SMEAR UNDER ANESTHESIA (WRVU *) performed by Jennifer Blair MD at [facility] OR PRO CONIZATION CERVIX W/WO D&C RPR ELECTRODE EXCISION N/A 09/22/2020 CONIZATION OF CERVIX, LOOP ELECTRODE (WRVU 3.67) performed by Jennifer Blair MD at [facility] OR PRO ENDOCERVICAL CURETTAGE N/A 02/21/2023 ENDOCERVICAL CURETTAGE, W\O\DILATION (WRVU 1.19) performed by Jennifer Blair MD at [facility] OR PRO HYSTEROSCOPY, W/ENDO BX N/A 02/21/2023 HYSTEROSCOPY, SURG W/ENDOMETRIAL SAMPLING, POLYPECTOMY (WRVU 4.17) performed by Jennifer Blair MD at [facility] OR PRO REMOVE INTRAUTERINE DEVICE N/A 09/22/2020 (MSURG) REMOVAL IUD, VAGINAL APPROACH (WRVU 1.27) performed by Jennifer Blair MD at [facility] OR TONSILLECTOMY TUBAL LIGATION 2016 salpingectomy TYMPANOSTOMY TUBE PLACEMENT Medications: Current Outpatient Medications: famotidine (Pepcid) 40 mg tablet, , Disp: , Rfl: Spiriva with HandiHaler 18 mcg Capsule, w/Inhalation Device, INHALE THE CONTENTS OF ONE CAPSULE VIAHANDIHALER BY MOUTH EVERY DAY, Disp: , Rfl: traZODone (Desyrel) 50 mg Tablet, Take 50 mg by mouth nightly., Disp: , Rfl: ondansetron ODT (Zofran-ODT) 4 mg Tablet, Rapid Dissolve, DISSOLVE ONE TABLET ON THE TONGUE EVERY 8HOURS NEEDED FOR NAUSEA AND VOMITING, Disp: , Rfl: L-Methylfolate 15 mg Tablet, Take 15 mg by mouth daily., Disp: , Rfl: fluticasone propion-salmeteroL (ADVAIR HFA) 115-21 mcg/actuation HFA Aerosol Inhaler, Inhale 2 puffs into the lungs 2 times daily., Disp: , Rfl: lamoTRIgine (LaMICtal) 100 mg Tablet, Take 100 mg by mouth daily., Disp: , Rfl: lisdexamfetamine (Vyvanse) 10 mg Capsule, Take 50 mg by mouth daily., Disp: , Rfl: Lavender Oil Oil, [facility]Non-Drug; Combo Route) route., Disp: , Rfl: LORazepam (Ativan) 1 mg Tablet, Take 1 mg by mouth every 6 hours as needed for Anxiety., Disp: , Rfl: ibuprofen (Advil;Motrin) 800 mg Tablet, Take 1 tablet by mouth every 6 hours as needed for Pain., Disp: 30 tablet, Rfl: 12 glucosam/chond/collagen/hyalur (JOINT SUPPORT ORAL), Take 3 tablets by mouth nightly., Disp: , Rfl: folic acid (FOLVITE) 800 mcg Tablet, Take 400 mcg by mouth daily., Disp: , Rfl: polyethylene glycoL (Miralax) 17 gram/dose Powder, MIX 17 GRAMS OF POWDER IN 8 OUNCES OF LIQUID ANDDRINK ONCE DAILY TAKE NEEDED, Disp: , Rfl: fexofenadine (PRAVIN) 180 mg Tablet, TAKE 1 TABLET BY MOUTH ONCE DAILY, Disp: , Rfl: Mag-G 27 mg magnesium (500 mg) Tablet, TAKE 3 TO 4 TABLETS BY MOUTH TWICE DAILY, Disp: , Rfl: diphenhydramine HCl (UNISOM, DIPHENHYDRAMINE, ORAL), Take by mouth., Disp: , Rfl: lactobacillus rhamnosus, GG, (CULTURELLE) 10 billion cell Capsule, Take 1 capsule by mouth daily., Disp: , Rfl: diphenhydrAMINE (Benadryl) 25 mg Capsule, Take 25 mg by mouth every 6 hours as needed for Itching.,Disp: , Rfl: montelukast (Singulair) 10 mg Tablet, TAKE 1 TABLET BY MOUTH IN THE EVENING, Disp: , Rfl: omeprazole (PriLOSEC) 40 mg Capsule, Delayed Release(E.C.), TAKE 1 CAPSULE BY MOUTH TWICE DAILY REPLACES OMEPRAZOLE 20MG, Disp: , Rfl: ferrous sulfate 325 mg (65 mg iron) Tablet, TAKE 1 TABLET BY MOUTH ONCE DAILY, Disp: , Rfl: lisinopriL (Prinivil;Zestril) 40 mg Tablet, TAKE 1 TABLET BY MOUTH ONCE DAILY DOSE INCREASE, Disp: , Rfl: cholecalciferol, Vitamin D3, 50 mcg (2,000 unit) Capsule, TAKE 2 CAPSULES BY MOUTH ONCE DAILY, Disp: , Rfl: UNABLE TO FIND, Med Name: immunity boost; apple cider vinegar + keto, Disp: , Rfl: acetaminophen (TYLENOL) 650 mg Tablet Sustained Release, Take 650 mg by mouth every 8 hours as needed for Pain. Do not exceed 6 tabs in 24 hours, Disp: , Rfl: Eye Itch Relief 0.025 % (0.035 %) Drops, INSTILL 1 DROP INTO EACH EYE TWICE DAILY, Disp: , Rfl: melatonin 10 mg Capsule, TAKE 1 CAPSULE BY MOUTH ONCE DAILY IN THE EVENING, Disp: , Rfl: Vitamins B Complex Tablet, TAKE 1 TABLET BY MOUTH TWICE DAILY, Disp: , Rfl: naproxen (NAPROSYN) 500 mg Tablet, TAKE 1 TABLET BY MOUTH TWICE DAILY NEEDED FOR PAIN, Disp: , Rfl: albuteroL 90 mcg/actuation HFA Aerosol Inhaler, Inhale 2 puffs into the lungs every 4 hours as needed for Wheezing. Use with spacer, Disp: , Rfl: CIS Free Text Med - Floxin, 3 Drop(s), AU, Otic, TID, Disp: , Rfl: Allergies: Patient has no known allergies. Family History: Family History Problem Relation Age of Onset Ovarian Cancer Mother 25 Start of ovarian cancer Bladder Cancer Maternal Grandfather Breast Cancer Other Uterine Cancer Neg Hx Colorectal Cancer Neg Hx Pancreatic Cancer Neg Hx Stomach Cancer Neg Hx Social History: reports that she has quit smoking. She has never used smokeless tobacco. She reports that she does not currently use alcohol. She reports current drug use. Frequency: 1.00 time per week. Drug: Marijuana. Quit 9-10 years ago. No etoh Patient Vitals for the past 24 hrs: Temp Pulse Resp BP SpO2 02/28/23 1514 36.6 ??C (97.9 ??F) 97 16 140/67 100 % Body mass index is 65.21 kg/m??. On physical examination, this is a well appearing female with obesity. There is no scleral or skin icterus. Mucous membranes are moist and her pupils reactive. Her lungs are clear to auscultation. Heart is regular, rate, and rhythm and without murmurs. Her abdomen is nontender and without palpable masses. Her extremity and neurological exam are grossly normal. Impression. Symptomatic gastroesophageal reflux in the setting of BMI 65. There was no hiatal hernia mentioned on her recent EGD, although images are not available today. We discussed management options for GERD including continued antacid treatment, vs. Surgery. As shecontinues to have significant symptoms despite PPI, (although improved), surgery is likely to offerher better manager intermediate symptom control. We discussed that the best surgical treatment for her GERD would be a michael en y gastric bypass, rather than a tom fundoplication, which would have an unacceptably high recurrence rate. She states that she has considered bariatric surgery in the past, and is interested in that option. She will register for a bariatric meeting, and will follow up with me once further through the program. She does not need additional testing related to her GERD from my perspective. All questions answered. documented in this encounter Plan of Treatment Scheduled Referrals Name Type Priority Associated Diagnoses Order Schedule Referral to Gastroenterology Outpatient Referral Routine Gastric reflux Ordered: 01/12/2023 documented as of this encounter Visit Diagnoses Diagnosis Gastroesophageal reflux disease, unspecified whether esophagitis present Morbid obesity with BMI of 60.0-69.9, adult Morbid obesity documented in this encounter Care Teams Field Supervisor Seed Production Relationship Specialty Start Date End Date Trisha Jacobson APRN [address] [place] [address] PCP - General 07/29/21 documented as of this encounter
--- OUTSIDE RECORDS SUMMARY | 2024-07-15 21:45 | XMS_ITS | Encounter Summary ---
Author Organization [facility] [place] [address] Care Team Providers Care Pattern Setter Name Role Phone Kavon Trishabraden Camara APRN Primary Care Provider + Reason for Referral * Consultation (Routine) - Closed Specialty Diagnoses / Procedures Referred By Nakia anderson Referred To Contact General Surgery Diagnoses Gastric reflux CONSIDERATION FOR ANTI REFLUX SURG Kevin Cleveland MD [facility] [address] [place] [address] [facility] Gen Surgery [address] [address] Referral ID Status Reason Start Date Expiration Date V isits Requested Visits Authorized [id number] Closed Consult, Test & Treat PCP Updated and/or Approved 01/12/2023 01/12/2024 6 6 Encounter Details Date Type Department Care Team ([facility] Contact Info) Description 01/12/2023 Transcribe Orders eDH Incoming Referrals [phone] Kevin Cleveland MD Gastric reflux Social History Tobacco Use Types Packs/Day Years [...] as of this encounter Plan of Treatment Scheduled Referrals Name Type Priority Associated Diagnoses Order Schedule Referral to Gastroenterology Outpatient Referral Routine Gastric reflux Ordered: 01/12/2023 documented as of this encounter Visit Diagnoses Diagnosis Gastric reflux Esophageal reflux documented in this encounter Care Teams Pattern Setter Relationship Specialty Start Date End Date Trisha Jacobson, [employer] [facility] [address] [place] [address] PCP - General 07/29/21 documented as of this encounter
--- OUTSIDE RECORDS SUMMARY | 2024-07-15 21:45 | XMS_ITS | Clinical Summary ---
Author Organization [facility] Address [facility] [place] [address] Care Team Providers Care Sugar House Supervisor Name Role Phone Trisha Jacobson APRN Primary Care Provider + Allergies No known active allergies Medications Medication Sig Dispensed Refills Start Date End Date Status CIS Free Text Med - Floxin 3 Drop(s), AU, Otic, TID 04/16/2001 Active fexofenadine (PRAVIN) 180 mg Tablet TAKE 1 TABLET BY MOUTH ONCE DAILY 05/16/2020 Active Mag-G 27 mg magnesium (500 mg) Tablet TAKE 3 TO 4 TABLETS BY MOUTH TWICE DAILY 06/06/2020 Active diphenhydramine HCl (UNISOM, DIPHENHYDRAMINE, ORAL) Take by mouth. Active lactobacillus rhamnosus, GG, (CULTURELLE) 10 billion cell Capsule Take 1 capsule by mouth daily. Active diphenhydrAMINE (Benadryl) 25 mg Capsule Take 25 mg by mouth every 6 hours as needed for Itching. Active montelukast (Singulair) 10 mg Tablet TAKE 1 TABLET BY MOUTH IN THE EVENING 05/11/2020 Active omeprazole (PriLOSEC) 40 mg Capsule, Delayed Release(E.C.) TAKE 1 CAPSULE BY MOUTH TWICE DAILY REPLACES OMEPRAZOLE 20MG 05/26/2020 Active ferrous sulfate 325 mg (65 mg iron) Tablet TAKE 1 TABLET BY MOUTH ONCE DAILY 04/24/2020 Active lisinopriL (Prinivil;Zestril) 40 mg Tablet TAKE 1 TABLET BY MOUTH ONCE DAILY DOSE INCREASE 06/06/2020 Active cholecalciferol, Vitamin D3, 50 mcg (2,000 unit) Capsule TAKE 2 CAPSULES BY MOUTH ONCE DAILY 05/05/2020 Active UNABLE TO FIND Med Name: immunity boost; apple cider vinegar + keto Active acetaminophen (TYLENOL) 650 mg Tablet Sustained Release Take 650 mg by mouth every 8 hours as needed for Pain. Do not exceed 6 tabs in 24 hours Active Eye Itch Relief 0.025 % (0.035 %) Drops INSTILL 1 DROP INTO EACH EYE TWICE DAILY 03/29/2020 Active melatonin 10 mg Capsule TAKE 1 CAPSULE BY MOUTH ONCE DAILY IN THE EVENING 04/23/2020 Active Vitamins B Complex Tablet TAKE 1 TABLET BY MOUTH TWICE DAILY 05/05/2020 Active naproxen (NAPROSYN) 500 mg Tablet TAKE 1 TABLET BY MOUTH TWICE DAILY NEEDED FOR PAIN 05/16/2020 Active albuteroL 90 mcg/actuation HFA Aerosol Inhaler Inhale 2 puffs into the lungs every 4 hours as needed for Wheezing. Use with spacer Active polyethylene glycoL (Miralax) 17 gram/dose Powder MIX 17 GRAMS OF POWDER IN 8 OUNCES OF LIQUID AND DRINK ONCE DAILY TAKE NEEDED 05/02/2020 Active glucosam/chond/pascual agen/hyalur (JOINT SUPPORT ORAL) Take 3 tablets by mouth nightly. Active folic acid (FOLVITE) 800 mcg Tablet Take 400 mcg by mouth daily. Active ibuprofen (Advil;Motrin) 800 mg Tablet Take 1 tablet by mouth every 6 hours as needed for Pain. 30 tablet 12 09/22/2020 Active fluticasone propion-salmeteroL (ADVAIR HFA) 115-21 mcg/actuation HFA Aerosol Inhaler Inhale 2 puffs into the lungs 2 times daily. Active lamoTRIgine (LaMICtal) 100 mg Tablet Take 100 mg by mouth daily. Active lisdexamfetamine (Vyvanse) 10 mg Capsule Take 50 mg by mouth daily. Active Lavender Oil Oil by [facility].(Non-Drug; Combo Route) route. Active LORazepam (Ativan) 1 mg Tablet Take 1 mg by mouth every 6 hours as needed for Anxiety. Active Spiriva with HandiHaler 18 mcg Capsule, w/Inhalation Device INHALE THE CONTENTS OF ONE CAPSULE VIA HANDIHALER BY MOUTH EVERY DAY 10/22/2022 Active traZODone (Desyrel) 50 mg Tablet Take 50 mg by mouth nightly. 11/15/2022 Active ondansetron ODT (Zofran-ODT) 4 mg Tablet, Rapid Dissolve DISSOLVE ONE TABLET ON THE TONGUE EVERY 8 HOURS NEEDED FOR NAUSEA AND VOMITING 10/27/2022 Active L-Methylfolate 15 mg Tablet Take 15 mg by mouth daily. 10/14/2022 Active famotidine (Pepcid) 40 mg tablet 01/09/2023 Active norethindrone (Micronor) 0.35 mg tabletIndications:A bnormal uterine bleeding (AUB) Take 1 tablet by mouth daily. 84 tablet 5 03/05/2023 Active Active Problems Problem Noted Date Diagnosed Date Abnormal uterine bleeding (AUB) 01/12/2023 BMI 60.0-69.9, adult 09/30/2020 CAROLEE III (cervical intraepithelial neoplasia III) 09/22/2020 Overview (03/09/2023): COTEST and ECC ~03/2021 (I.e. 6 months after LEEP) (RHE) 08/2021 ECC and pap neg, NILM, neg HR HPV respectively Cotest NILM neg HR HPV Cotest one more time in 12 months so around 02/2024, then to every 3 years cotest x 25 years (ASCCP Guidelines: J.3. Long-Term Follow up after Treatment for HGSIL. In patients treated for histologic or cytologic HSIL after the initial HPV based test at 6 months, annual HPV or cotesting is preferred until 3 consecutive negative tests have been obtained. Then, continued surveillance at 3 year intervals is recommended for at least 25 years after treatment) Immunizations Name Administration Dates Next Due HPV 9-Valent (Gardasil 9) 07/29/2021,07/21/2020 Family History Medical History Relation Comments Bladder Cancer Maternal Grandfather Ovarian Cancer Mother Start of ovaria n cancer Breast Cancer Other Colorectal Cancer Neg Hx Pancreatic Cancer Neg Hx Stomach Cancer Neg Hx Uterine Cancer Neg Hx Relation Status Comments Maternal Grandfather Mother Other Alive Social History Tobacco Use Types Packs/Day Years Used Date Smoking Tobacco: Former Smokeless Tobacco: Never Tobacco Cessation:Counseling Given: Not Answered Alcohol Use Standard Drinks/Week Comments Not Currently 0 (1 standard drink = 0.6 oz pur e alcohol) DH IPV Inpatient Questions Answer Date Recorded Does Anyone [...] PM EST Sexual Orientation Not on file Last Filed Vital Signs Vital Sign Reading [...] Mass Index 65.21 02/28/2023 3:14 PM EDT Plan of Treatment Health Maintenance Due Date Last Done Comments HIV screen 2003 Hepatitis C Screening 2003 Lipid Screening 2003 Hepatitis B vaccine (0-59 yr s) (1) 01/18/2004 Tetanus/Diphtheria/Pertussis Vaccines (1 - Tdap) 01/18/2004 HPV vaccine (3 - 3-dose SCDM series) 10/21/2021 07/29/2021, 07/21/2020 HPV test 02/22/2024 02/21/2023, 11/15, 09/15/2021, Additional history exists PAP Smear 02/22/2024 02/21/2023, 11/15, 09/15/2021, Additional history exists Covid-19 Vaccine (3 - 2022-2 4 season) 2024 10/25/2020, 09/23/2020 Influenza (Flu) vaccine (1 o f 1 - Influenza standard series) 05/18/2024 Procedures Procedure Name Priority Date/Time Associated Diagnosis Comments HPV Routine 02/21/2023 11:54 AM EDT DORMITORY COUNSELOR CYTOLOGY FINAL REPORT Routine 02/21/2023 11:54 AM EDT from Last 3 Months or Most Recently Relevant to Health Maintenance Results * HPV (02/21/2023 11:54 AM EDT) HPV16 NEGATIVE NEGATIVE [facility] HPV 18 NEGATIVE NEGATIVE [facility] HPV Other HR NEGATIVE NEGATIVE [facility] HPV Interpretation See Comment [facility] Comment: NEGATIVE for high-risk HPV [...] or specimen types are not validated/recommended. Cervical 02/21/2023 11:5 4 AM EDT 02/21/2023 1:10 PM EDT Narrative Resulting Agency Comment Spec In Lab Jennifer Blair MD PATHOLOGY/CYTOLOGY O CHEO Performing Organization Address City/State/[facility] Co de Phone Number [facility] [place] [address] * Computer Systems Architect Cytology Final Report (02/21/2023 11:54 AM EDT) Computer Systems Architect Cytology Final Report [id number] ? Location: [place]; [facility]; A The signing pathologist has (i) examined the relevant preparation(s) for the specimen(s) and (ii) rendered or confirmed the diagnosis(es). . ? Computer Systems Architect Final DIAGNOSIS Normal Negative for intraepithelial lesion or malignancy (NILM). For consensus guidelines for the management of cervical cancer screening test results, please see: ?? http://www.asccp.or g . Electronically signed by: ?Rajiv CASTORENA(ASCP), Giovana M Verified: ??03/09/2023 9:35 ?? Commercial Account Manager Performed at: ??-[facility] Dept. of Pathology, [place] [address] Public Records Officer: Noel Chinchilla MD, AP, ??[facility] Certificate: [id number] HPV RESULTS HPV16 (Result) ?Negative HPV18 (Result) [...] Clinical Genomics and Advanced Technology (CGAT) at [facility]. ? - Jesu Mott, PhD, [facility], Director-[facility] STATEMENT OF ADEQUACY Specimen submitted is satisfactory for evaluation. No endocervical component present. Note: ??Initial cross-sectional studies suggested that BONNIE cells were more commonly identified when an endocervical component was present, however subsequent longitudinal studies fail to show that women lacking an endocervical component in a Pap smear are at increased risk for BONNIE. CLINICAL INFORMATION HPV Option: ?Concurrent HPV and Pap CT/NG Option: ?No Preparation: ? Liquid based Pap Specimen Source: ? Cervical/Endocervic al LMP: ? n/a Hysterectomy: ?No : ?No : ?No I.U.D.: ?No Pelvic Radiation: ?No Hist Abnl Pap/Biopsy: ?Yes, history of previous abnormal Pap . CLINICAL INFORMATION Prior DORMITORY COUNSELOR Therapy: ? Other (comment) Hist of HPV Vaccine: ? Yes ICD Diagnosis: ? Z12.4 Encounter for screening for malignant neoplasm of cervix Clinical Data, Significant Therapy and Clinical Impression ?? : ?history of leep for cin3 This Pap Test has been evaluated with the assistance of the auctionpointPrep Pap Test Imaging System. Note: The Pap test is a screening test for cervical cancer with an inherent false-negative rate dependent upon several variables. For further information please contact the [facility] Laboratory. Reference: Bc SNOW. Cheese Pancake Roller of Pap Smear Results. In: Lyudmila BS, Nathan HH, ed. The Pap Smear. [place]: Brady, 2002: 71-77. [facility] 02/21/2023 11:5 4 AM EDT Jennifer Blair MD PATHOLOGY/[place] [address] from Last 3 Months or Most Recently Relevant to Health Maintenance Advance Directives * Attempt Cardiopulmonary Resuscitation - Inpatient (Latest Code Status on File) Date Activated Date Inactivated Comments 02/21/2023 9:07 AM 02/21/2023 4:25 PM Question Answer Comments Code Status decision made by: Patient Care Teams Sugar House Supervisor Relationship Specialty Start Date End Date Trisha Jacobson APRN [address] [place] [address] PCP - General 07/29/21
--- OUTSIDE RECORDS SUMMARY | 2024-07-15 21:45 | XMS_ITS | Encounter Summary ---
Author Organization [facility] Address [facility] [place] [address] Care Team Providers Care Tree Warden Name Role Phone KavonTrihsa Hoa PANDYA Primary Care Provider + Reason for Visit * Reason Comments Follow-up Encounter Details Date Type Department Care Team (Latest Contact Info) Description 02/02/2023 10:20 AM EDT TH Visit (TeleHealth) Obstetrics [place] [address] Cristina Agrawal, ROOFING CONTRACTOR [facility] [address] OBSTETRICS [place] [address] Abnormal uterine bleeding (AUB) Social History Tobacco Use Types Packs/Day Years [...] Sign Reading Time Taken Comments Blood Pressure - - Pulse - - Temperature - - Respiratory Rate - - Oxygen Saturation - - Inhaled Oxygen Concentration - - Weight 168.3 kg (371 lb) 01/26/2023 1:15 PM EDT Height 162.6 cm (5' 4) 01/26/2023 1:15 PM EDT Body Mass Index 63.68 01/26/2023 1:15 PM EDT documented in this encounter Progress Notes * Rylie Manuel LNA - 02/02/2023 10:20 AM EDT ____ Patient not reached _X___Patient reached and the following information was reviewed/obtained per protocol. _X__Confirmed patient name and date of _c__Confirmed tele med appt (Virtual visit) is downloaded and functioning _X__Confirmed location of patient- TeleVisit is taking place in [place]_X_ [place]__[place]__ [place]__ If not on myDH, working on signing up for my DH Confirmed has completed any pre-visit questionnaires If has not received required previsit questionnaires, send via [facility] _x__Reviewed medications, allergies, pharmacy, pain/depression, education _X__Documented height/weight/LMP Other information or concerns: RAHEL Mcghee * Cristina Agrawal APRN - 02/02/2023 10:20 AM EDT Division of Obstetrics [place] [address] Telehealth Encounter: I called Cecilia Connelly for a Telehealth visit. Patient verbally consents to this visit and understands that this visit will be billed, similar to a clinic office visit. Patient is located in [place]. Reason/purpose for visit: Review U/S results. Subjective: Cecilia is a 38 y.o. female who presents today to review her U/S results. Cecilia was last seen in December by Dr. Sylvester for concerns about abnormal uterine bleeding. She has a history of CAROLEE III s/p LEEP in 2020, HTN, pre-diabetes, morbid obesity, MEY, GERD, PTSD, insomnia, anxiety/depression, chronic low back pain and iron deficiency anemia. She was last seen [id number] for a similar concern. EMB done 06/11/2020 was benign and TVUS was normal except for a possibleright IUD arm impeded into the endometrium. Her IUD was removed in 09/2020. Her menstrual history was as follows: She is not currently on any type of control. She tried the IUD following 2015 delivery and again in 2019 but she says the she could feel this device and it was very uncomfortable for er and got them removed. Gained weight with DepoProvera with extreme mood swings. Used OCPs for ~ 1 year as a teenager but had difficulty remembering medications. Received tubal ligation following 2016 delivery for contraception. ?? She reports that her periods have generally been irregular occurring every 2-3 months with inter-menstural spotting in between. But reports that since her LEEP in Sep 2020 her periods have been regular coming about every 30 days lasting for about 7 days and very heavy. ?? She denies lightheadedness or dizziness. She has a PCP at [facility] that she follows up, She recently had lab work (12/27) in [facility]: Hg 13.9 (results showed on patient's phone). TSH: 2.67. Cecilia had expressed a desire for a hysterectomy to help control her bleeding concerns. She's triedmedications in the past and does not want another IUD. She says the last 2 she could feel and they were painful the entire time. Pap history: 11/2022: Unsatisfactory, HRHPV - 08/2021: NILM/HPV neg, benign ECC 07/2021: pap unsat/HPV neg, benign ECC 09/22/20 LEEP HSIL/CAROLEE III Patient Active Problem List Diagnosis Date Noted ??? Abnormal uterine bleeding (AUB) 01/12/2023 ??? BMI 60.0-69.9, adult 09/30/2020 ??? CAROLEE III (cervical intraepithelial neoplasia III) 09/22/2020 Past Medical History: Diagnosis Date ??? Anemia [...] 3.67) performed by Jennifer Blair MD at [facility] ??? PRO REMOVE INTRAUTERINE DEVICE N/A 09/22/2020 (MSURG) REMOVAL IUD, VAGINAL APPROACH (WRVU 1.27) performed by Jennifer Blair MD at [facility] ??? TONSILLECTOMY ??? TUBAL LIGATION 2016 salpingectomy ??? TYMPANOSTOMY TUBE PLACEMENT Outpatient Medications Marked as Taking for the 02/02/23 encounter (TH Visit (TeleHealth)) with Cristina Agrawal APRN Medication Sig Dispense Refill ??? famotidine (Pepcid) 40 mg tablet ??? Spiriva with HandiHaler 18 mcg Capsule, [...] into the lungs 2 times daily. ??? armodafinil (NUVIGIL ORAL) Take by mouth. ??? buPROPion SR (Wellbutrin SR) 150 mg tablet sustained-release 12 hr Take 150 mg by mouth 2 timesdaily. ??? lamoTRIgine (LaMICtal) 100 mg Tablet Take 100 mg by mouth daily. ??? lisdexamfetamine (Vyvanse) 10 mg Capsule Take 50 mg by mouth daily. ??? Lavender Oil Oil by Misc.(Non-Drug; Combo Route) route. ??? LORazepam (Ativan) 1 mg Tablet Take 1 mg by mouth every 6 hours as needed for Anxiety. ??? ibuprofen (Advil;Motrin) 800 mg Tablet Take 1 tablet by mouth every 6 hours as needed for Pain.30 tablet 12 ??? glucosam/chond/collagen/hyalur (JOINT SUPPORT ORAL) Take 3 tablets by mouth nightly. ??? folic acid (FOLVITE) 800 mcg Tablet Take 400 mcg by mouth daily. ??? modafiniL (Provigil) 100 mg Tablet TAKE 1 TABLET BY MOUTH ONCE DAILY ??? polyethylene glycoL (Miralax) 17 gram/dose Powder MIX 17 GRAMS OF POWDER IN 8 OUNCES OF LIQUID AND DRINK ONCE DAILY TAKE NEEDED ??? fexofenadine (PRAVIN) 180 mg Tablet TAKE 1 TABLET BY MOUTH ONCE DAILY ??? Mag-G 27 mg magnesium (500 mg) Tablet TAKE 3 TO 4 TABLETS BY MOUTH TWICE DAILY ??? diphenhydramine HCl (UNISOM, DIPHENHYDRAMINE, ORAL) Take by mouth. ??? lactobacillus rhamnosus, GG, (CULTURELLE) 10 billion cell Capsule Take 1 capsule by mouth daily. ??? sertraline (ZOLOFT) 100 mg Tablet 50 mg. Half tab once a day ??? diphenhydrAMINE (Benadryl) 25 mg Capsule Take 25 mg by mouth every 6 hours as needed for Itching. ??? montelukast (Singulair) 10 mg Tablet TAKE 1 TABLET BY MOUTH IN THE EVENING ??? topiramate (TOPAMAX) 50 mg Tablet TAKE 1 TABLET BY MOUTH TWICE DAILY ??? omeprazole (PriLOSEC) 40 mg Capsule, Delayed Release(E.C.) TAKE 1 CAPSULE BY MOUTH TWICE DAILY REPLACES OMEPRAZOLE 20MG ??? ferrous sulfate 325 mg (65 mg iron) Tablet TAKE 1 TABLET BY MOUTH ONCE DAILY ??? lisinopriL (Prinivil;Zestril) 40 mg Tablet TAKE 1 TABLET BY MOUTH ONCE DAILY DOSE INCREASE ??? cholecalciferol, Vitamin D3, 50 mcg (2,000 unit) Capsule TAKE 2 CAPSULES BY MOUTH ONCE DAILY ??? UNABLE TO FIND Med Name: immunity boost; apple cider vinegar + keto ??? acetaminophen (TYLENOL) 650 mg Tablet Sustained Release Take 650 mg by mouth every 8 hours as needed for Pain. Do not exceed 6 tabs in 24 hours ??? Eye Itch Relief 0.025 % (0.035 %) Drops INSTILL 1 DROP INTO EACH EYE TWICE DAILY ??? melatonin 10 mg Capsule TAKE 1 CAPSULE BY MOUTH ONCE DAILY IN THE EVENING ??? Vitamins B Complex Tablet TAKE 1 TABLET BY MOUTH TWICE DAILY ??? naproxen (NAPROSYN) 500 mg Tablet TAKE 1 TABLET BY MOUTH TWICE DAILY NEEDED FOR PAIN ??? albuteroL 90 mcg/actuation HFA Aerosol Inhaler Inhale 2 puffs into the lungs every 4 hours as needed for Wheezing. Use with spacer ??? fluticasone propionate (FLOVENT) 110 mcg/actuation HFA Aerosol Inhaler Inhale 1 puff into the lungs 2 times daily. ??? CIS Free Text Med - Floxin 3 Drop(s), AU, Otic, TID No Known Allergies ROS: See HPI, all others negative. Objective: Ht 162.6 cm (5' 4) Wt (!) 168.3 kg (371 lb) LMP 01/25/2023 BMI 63.68 kg/m?? General: Appears healthy and well nourished. No apparent distress. U/S Reviewed: 1. Limited sonographic evaluation of the uterus due to positioning and habitus. 2. No sonographic abnormality identified with the uterus or ovaries. Assessment/Plan: MIKKI. Reviewed U/S results and again recommended she undergo an endometrial biopsy given her risk factors and 17mm lining. Cecilia would like this done in the OR under anesthesia given her inability totolerate pelvic exams. Discussed that a D&C might be a better option, but I will consult with an MD for proper management options. I offered a Mirena IUD placement in the OR at the time of procedure to ensure correct placement, but she really does not want to pursue this option a 3rd time. Cecilia still desires a hysterectomy and I will pass this information along to her provider. Cervical cancer screening s/p LEEP 03/2021. Will need pap follow-up, preferrably in the OR at time of D&C/biopsy. I have spent a total time of 15 minutes on this patient encounter on the day of visit, including pre-charting, time spent with the patient and post-service wrap-up. CRISTINA AGRAWAL, ROOFING CONTRACTOR 02/02/2023 *Note to patient: The Century Cures Act makes medical notes like this available to patients inthe interest of transparency. However, be advised this is a medical document. It is intended as [id number] communication. It is written in medical language and may contain abbreviations or verbiagethat are unfamiliar. documented in this encounter Plan of Treatment Not on file documented as of this encounter Visit Diagnoses Diagnosis Abnormal uterine bleeding (AUB) documented in this encounter Care Teams Tree Warden Relationship Specialty Start Date End Date Trisha Jacobson APRN [address] [place] [address] PCP - General 07/29/21 documented as of this encounter
--- OUTSIDE RECORDS SUMMARY | 2024-07-15 21:45 | XMS_ITS | Encounter Summary ---
Author Organization [facility] [place] [address] Care Team Providers Care Milking Worker Name Role Phone Trisha Jacobson APRN Primary Care Provider + Reason for Visit * Auth/Cert (Routine) Specialty Diagnoses / Procedures Referred By Contac t Referred To Contact Diagnoses Abnormal uterine and vaginal bleeding, unspecified History of loop electrical excision procedure (LEEP) AUB and difficult office exam, needs endometrial sampling and pap in OR Procedures PRO HYSTEROSCOPY, W/ENDO BX CHG CYTOPATH,CERV/VAG,AUTO THIN LAYER,INTERP HYSTEROSCOPY, SURG W/ENDOMETRIAL SAMPLING, POLYPECTOMY (WRVU 4.17) PAP SMEAR UNDER ANESTHESIA (WRVU *) Jennifer Blair MD [facility] OBSTETRICS [place] [address] [facility] Referral ID Status Reason Start Date Expiration Date Visits Re quested Visits Authorized [id number] 1 1 Encounter Details Date Type Department Care Team (Late st Contact Info) Description 02/21/2023 10:40 AM EDT Anesthesia Event [place] [phone] Angelique Daugherty [facility] ANESTHESIOLOGY [place] [address] Anesthesia Record Procedure Summary Procedure Name Responsible Anesthesiologist Anesthesia Start Time Anesthesia Stop Time HYSTEROSCOPY, SURG W/ENDOMETRIAL SAMPLING, POLYPECTOMY (WRVU 4.17) (Uterus) Angelique Daugherty DO 02/21/23 1040 02/21/23 1249 Events Date Time Event Comment 02/21/2023 0934 1038 AN Verify 1040 Start 1040 An Start Data 1048 An Induction 1054 An Intubation 1057 Anesthesia Ready 1134 Quick Note Despite deep an esthetic with sedline at 21 surgeon states she is responding. Increased phenylephrine and propofol with sevoflurane 1216 Quick Note Full recovery o f muscle relaxant after 20mg given earlier. No need for reversal 1240 Extubation/LMA Out 1246 an stop data 1248 Recovery or ICU Handoff Mikayla ent care was transferred to the destination unit staff after review of the patient's medical history, current anesthetic/surgical status and plan, according to the Provider Handoff Checklist. 1249 Stop Meds Name Total Midazolam 2 mg fentaNYL 200 mcg IV Lidocaine 100 mg Propofol 240 mg Rocuronium 20 mg PHENYLephrine 640 mcg Ondansetron 8 mg Dexamethasone 8 mg Dexmedetomidine 8 mcg Propofol INF 1,713.27 mg ketorolac (Toradol) (30 mg/mL) injection 30 mg lactated ringers infusion 0 mL * Agents Name O2 * Blood No blood administrations on file. Lines, Drains, and Airways Type Details Placement Removal Incision 02/21/23; 1106; othe r (see comments); vagina 02/21/23 1106 by Jennifer Cid, IVAN (RETIRED) Peripheral IV Line - Single Lumen 02/21/23; metacarpal vein (top of hand), left; 22 gauge; 02/21/23; 1423 02/21/23 0000 by Justin Ashley RN 02/21/23 1423 by Violetta Puente, IVAN ETT Mask Ventilation: Ea hyacinth (1); ETT Type: Cuffed; ETT Size: 7 mm; Mac Blade: 4; Notes: Asleep; Attempts: 1; Laryngoscopy Grade: 2; ETT Placement Verified By: Auscultation, Capnometry, Visual; Secured at Teeth: 22 cm; Inserted by: Dat; Removal Date: 02/21/23; Removal Time: 1240 02/21/23 1107 by Angelique Daugherty DO 02/21/23 1240 by Angelique Daugherty DO documented in this encounter Social History Tobacco Use Types Packs/Day Years [...] on file documented as of this encounter OR Notes * Anesthesia Postprocedure Evaluation - Angelique Daugherty DO - 02/21/2023 12:57 PM EDT Department of Anesthesiology Post-procedure Note Patient: Cecilia Connelly Procedure Summary Date: 02/21/23 Room / Location: [facility] OR [address] [place] [address] MAIN OR Anesthesia Start: 1040 Anesthesia Stop: 1249 Procedures: HYSTEROSCOPY, SURG W/ENDOMETRIAL SAMPLING, POLYPECTOMY (WRVU 4.17) (Uterus) PAP SMEAR UNDER ANESTHESIA (WRVU *) (Uterus) ENDOCERVICAL CURETTAGE, W\O\DILATION (WRVU 1.19) (Cervix) Diagnosis: Abnormal uterine bleeding (AUB) History of loop electrical excision procedure (LEEP) (AUB and difficult office exam, needs endometrial sampling and pap in OR) Surgeons: Jennifer Blair MD Responsible Provider: Angelique Daugherty DO Anesthesia Type: general ASA Status: 3 All Anesthesia Providers: Anesthesiologist: Angelique Daugherty DO Vitals Value Taken Time BP 93/53 02/21/23 1249 Temp 36.3 ??C (97.3 ??F) 02/21/23 1249 Pulse 97 02/21/23 1249 Resp 18 02/21/23 1249 SpO2 98 % 02/21/23 1249 Pain Level Patient Location: PACU/SDP Level of Consciousness: Conscious but Sleepy Pain Management: Satisfactory Analgesia PONV: None Cardiovascular Status: Hemodynamically Stable Respiratory Status: Stable Respiratory Status and Supplemental O2 (NC or FM) Postoperative Fluid Status: Intravascular EUvolemia Possible Anesthetic Complications: NONE apparent at time of evaluation Final Primary Anesthesia Type: General (The anesthetic type performed was the same as planned.) Comments: * Anesthesia Preprocedure Evaluation - Angelique Daugherty DO - 02/20/2023 8:38 PM EDT Pre-Anesthesia Evaluation for: Cecilia Connelly a 38 y.o. female. Procedure(s): HYSTEROSCOPY, SURG W/ENDOMETRIAL SAMPLING, POLYPECTOMY (WRVU 4.17) PAP SMEAR UNDER ANESTHESIA (WRVU *) Patient Active Problem List Diagnosis Date Noted [...] N/A 09/22/2020 CONIZATION OF CERVIX, LOOP ELECTRODE (VU 3.67) performed by Jennifer Blair MD at [facility] MAIN OR ??? PRO REMOVE INTRAUTERINE DEVICE N/A 09/22/2020 (MSURG) REMOVAL IUD, VAGINAL APPROACH (WRVU 1.27) performed by Jennifer Blair MD at [facility] MAIN OR ??? TONSILLECTOMY ??? TUBAL LIGATION 2016 salpingectomy ??? TYMPANOSTOMY TUBE PLACEMENT Social History Tobacco Use ??? Smoking status: Former ??? Smokeless tobacco: Never Substance Use Topics ??? Alcohol use: Not Currently Social History Substance and Sexual Activity Drug Use Never No Known Allergies Medications: MAR and/or home medications have been reviewed. Physical Exam: Preprocedure Vitals Current as of 02/20/232037 No BP, pulse, respiration, SpO2, or temperature recorded. Height: Weight: BMI: IBW: Airway Assessment: Mallampati: III TM distance: >3 FB Neck ROM: full Cardiovascular Assessment: system normal Pulmonary Assessment: pulmonary exam normal Dental Assessment: Misc Assessment: Patient is wearing No contact(s). IV access: Peripheral line Last Filed Perioperative Cognitive Screening None Anesthesia Plan: ASA 3 general, with a(n) intravenous induction 38 yr old female for hysteroscopy and associated procedures. PMH: CAROLEE III, super morbid obesity BMI64, GERD, depression, PTSD, chronic back pain, htn, pre DM, and asthma. NPO no changes in her health. Uses BIPAP daily. No reflux symptoms today Quit smoking 9 yrs ago and asthma is stable . Glucose 95 and urine is negative. Region - Other Informed Consent: Anesthetic plan and risks discussed with patient. Plan discussed with attending. Anesthesia Screening documented in this encounter Plan of Treatment Not on file documented as of this encounter Visit Diagnoses Not on filedocumented in this encounter Administered Medications Inactive Administered Medications - up to 3 most recent administrations Medication Order MAR Action Action Date Dose Rate Site dexAMETHasone (Decadron) injection Intravenous, PRN, Starting on Sun02/21/23 at 1055, Until Sun02/21/23 at 1257, Anesthesia Intra-op, Routine Given 02/21/2023 10:55 AM EDT 8 mg dexmedeTOMIDine (Precedex) (4 mcg/mL) bolus injection (Anesthsia) Intravenous, PRN, Starting on Sun02/21/23 at 1042, Until Sun02/21/23 at 1257, Anesthesia Intra-op, Routine Given 02/21/2023 10:42 AM EDT 8 mcg fentaNYL (pf) (50 mcg/mL) multi-dose injection Intravenous, PRN, Starting on Sun02/21/23 at 1056, Until Sun02/21/23 at 1257, Anesthesia Intra-op, Routine Given 02/21/2023 12:18 PM EDT 50 mcg Given 02/21/2023 12:07 PM EDT 50 mcg Given 02/21/2023 10:56 AM EDT 100 mcg ketorolac (Toradol) (30 mg/mL) injection Intravenous, PRN, Starting on Sun02/21/23 at 1226, Until Sun02/21/23 at 1257, Anesthesia Intra-op, Routine Given 02/21/2023 12:26 PM EDT 30 mg lactated ringers infusion 1,000 mL, at 100 mL/hr, Intravenous, CONTINUOUS, Starting on Sun02/21/23 at 0845, Until Sun02/21/23 at 1423, Day of Surgery (Day of Procedure) New Bag 02/21/2023 11:39 AM EDT New Bag 02/21/2023 10:42 AM EDT lidocaine (pf) (Xylocaine) (20 mg/mL) 2% injection syringe Intravenous, PRN, Starting on Sun02/21/23 at 1046, Until Sun02/21/23 at 1257, Anesthesia Intra-op, Routine Given 02/21/2023 10:46 AM EDT 100 mg midazolam (pf) (Versed) (1 mg/mL) multi-dose injection Intravenous, PRN, Starting on Sun02/21/23 at 1044, Until Sun02/21/23 at 1257, Anesthesia Intra-op, Routine Given 02/21/2023 10:44 AM EDT 2 mg ondansetron (pf) (Zofran) (2 mg/mL) injection Intravenous, PRN, Starting on Sun02/21/23 at 1128, Until Sun02/21/23 at 1257, Anesthesia Intra-op, Routine Given 02/21/2023 11:28 AM EDT 8 mg PHENYLephrine in NS (PF) (PARMJIT-SYNEPHRINE) 0.8 mg/10 mL (80 mcg/mL) multi-dose injection Syringe Intravenous, PRN, Starting on Sun02/21/23 at 1102, Until Sun02/21/23 at 1257, Anesthesia Intra-op, Routine Given 02/21/2023 12:26 PM EDT 40 mcg Given 02/21/2023 12:14 PM EDT 40 mcg Given 02/21/2023 11:55 AM EDT 40 mcg propofoL (Diprivan) (10 mg/mL) infusion Intravenous, CONTINUOUS PRN, Starting on Sun02/21/23 at 1042, Until Sun02/21/23 at 1257, Anesthesia Intra-op, Routine Rate/Dose Change 02/21/2023 12:20 PM EDT 50 mcg/kg/min 51.27 mL/hr Rate/Dose Change 02/21/2023 11:45 AM EDT 100 mcg/kg/min 10 2.54 mL/hr Rate/Dose Change 02/21/2023 11:16 AM EDT 75 mcg/kg/min 76. 905 mL/hr propofoL (Diprivan) 10 mg/mL bolus injection (Anesthesia) Intravenous, PRN, Starting on Sun02/21/23 at 1048, Until Sun02/21/23 at 1257, Anesthesia Intra-op Given 02/21/2023 11:32 AM EDT 40 mg Given 02/21/2023 10:48 AM EDT 200 mg rocuronium (Zemuron) (10 mg/mL) multi-dose injection Intravenous, PRN, Starting on Sun02/21/23 at 1109, Until Sun02/21/23 at 1257, Anesthesia Intra-op, Routine Given 02/21/2023 11:09 AM EDT 20 mg documented in this encounter Care Teams Milking Worker Relationship Specialty Start Date End Date Trisha Jacobson, BATCH STILL OPERATOR [address] [place] [address] PCP - General 07/29/21 documented as of this encounter
--- OUTSIDE RECORDS SUMMARY | 2024-07-15 21:45 | XMS_ITS | Encounter Summary ---
[place] [address] Care Team Providers Care Equipment Driver Name Role Phone Trisha Jacobson APRN Primary Care Provider + Encounter Details Date Type Department Care Team (Latest Contact Info) Description 01/26/2023 5:00 PM EDT Laboratory Appointment Lab [address] [place] [phone] Abnormal uterine bleeding (AUB) Social History Tobacco [...] Procedure Name Priority Date/Time Associated Diagnosis Comments TESTOSTERONE, TOTAL AND FREE Routine 01/26/2023 4:47 PM EDT Abnormal uterine bleeding (AUB) 17-HYDROXYPROGESTERO NE Routine 01/26/2023 4:47 PM EDT Abnormal uterine bleeding (AUB) PROLACTIN Routine 01/26/2023 4:47 PM EDT Abnormal uterine bleeding (AUB) DHEA-SULFATE Routine 01/26/2023 4:47 PM EDT Abnormal uterine bleeding (AUB) HC LH ASSAY, SERUM Routine 01/26/2023 4: 47 PM EDT Abnormal uterine bleeding (AUB) FOLLICLE STIMULATING HORMONE Routine 01/26/2023 4:47 PM EDT Abnormal uterine bleeding (AUB) documented in this encounter Results * Prolactin (01/26/2023 4:47 PM EDT) Prolactin 15.1 4.8 - 23.3 ng/mL [facility] Blood 01/26/2023 4:47 PM EDT 01/26/2023 4:50 PM EDT Narrative Resulting Agency Comment Spec In Lab Bud Gómez MD CHEMISTRY ORDERABLES [facility] [place] [address] * 17-Hydroxyprogesterone (01/26/2023 4:47 PM EDT) 17-Hydroxyprog (MAY) 11 ng/dL [facility] Comment: Adult Female Reference Ranges for 17-Hydroxyprogesterone: ??Pre-Menopausal Mid Follicular: ??23-102 ng/dL ??Pre-Menopausal Surge: ? 67-349 ng/dL ??Pre-Menopausal Mid Luteal: ? 139-431 ng/dL ??Postmenopausal Phase: ?< or = 45 ng/dL : ?? First Trimester: ??78-457 ng/dL ?? Second Trimester: 90-357 ng/dL ?? Third Trimester: 144-578 ng/dL This test was developed and its analytical performance characteristics have been determined by [facility]. It has not been cleared or approved by FDA. This assay has been validated pursuant to the CLIA regulations and is used for clinical purposes. Test Performed by: [employer] [address] [facility] [place] [address] Blood 01/26/2023 4:47 PM EDT 01/29/2023 8:19 AM EDT Narrative Resulting Agency Comment Spec In Lab Bud Gómez MD LAB SEND OUT ORDERAB LES Performing Organization Address [facility] Co de Phone Number [facility] [place] [address] * Luteinizing Hormone (01/26/2023 4:47 PM EDT) Luteinizing Hormone 2.9 mlU/ML [facility] Comment: Reference Ranges Male: ? 1.7-8.6 mIU/mL Female ?? Follicular: ?2.4-12.6 mIU/mL ?? Ovulation: ? 14.0-95.6 mIU/mL ?? Luteal: ?1.0-11.4 mIU/mL ?? Postmenopausal: ?7.7-58.5 mIU/mL Blood 01/26/2023 4:47 PM EDT 01/26/2023 4:50 PM EDT Narrative Resulting Agency Comment Spec In Lab Bud Gómez MD CHEMISTRY ORDERABLES Performing Organization Address [facility] de Phone Number [facility] [place] [address] * Follicle Stimulating Hormone (01/26/2023 4:47 PM EDT) Follicle Stimulating Hormone 5.6 mlU/ML [facility] Comment: Reference Ranges Male: ? 1.5-12.4 mIU/mL Female ?? Follicular: ?3.5-12.5 mIU/mL ?? Ovulation: ? 4.7-21.5 mIU/mL ?? Luteal: ?1.7-7.7 mIU/mL ?? Postmenopausal: ?25.8-134.8 mIU/mL Blood 01/26/2023 4:47 PM EDT 01/26/2023 4:50 PM EDT Narrative Resulting Agency Comment Spec In Lab Bud Gómez MD CHEMISTRY ORDERABLES [facility] [place] [address] * Testosterone, total and free (01/26/2023 4:47 PM EDT) Testo, Total (Ms) (JANUARY) 22 8 - 60 ng/dL [facility] Comment: ADDITIONAL INFORMATION Testing performed by Liquid Chromatography-Tandem Mass Spectrometry (LC-MS/MS). This test was developed and its performance characteristics determined by [facility] in a manner consistent with CLIA requirements. This test has not been cleared or approved by the U.S. Food and Drug Administration. Test Performed by: [facility] [place] [address] Engineering Technician Parking: Rey Mai M.D. Ph.D.; CLIA# [id number] Testo Free (JANUARY) 0.41 <0.13 - 1.00 ng/dL [facility] Comment: ADDITIONAL INFORMATION This test was developed and its performance characteristics determined by [facility] in a manner consistent with CLIA requirements. This test has not been cleared or approved by the U.S. Food and Drug Administration. Test Performed by: [facility] [place]ICE - [place] [id number] Engineering Technician Parking: Rey Mai M.D. Ph.D.; CLIA# [id number] Blood 01/26/2023 4:47 PM EDT 01/29/2023 8:19 AM EDT Narrative Resulting Agency Comment Spec In Lab Bud Gómez MD LAB SEND OUT ORDERAB LES Performing Organization Address City/[facility]/ZIP Co de Phone Number [facility] [place] [address] * DHEA-sulfate (01/26/2023 4:47 PM EDT) Dehydroepiandrosterone Sulfate 88.2 60.9 - 337.0 mcg/dL [facility] Blood 01/26/2023 4:47 PM EDT 01/26/2023 4:50 PM EDT Narrative Resulting Agency Comment Spec In Lab Bud Gómez MD CHEMISTRY ORDERABLES Performing Organization Address [facility] Co de Phone Number [facility] [place] [address] documented in this encounter Visit Diagnoses Diagnosis Abnormal uterine bleeding (AUB) documented in this encounter Care Teams Equipment Driver Relationship Specialty Start Date End Date Trisha Jacobson, BREAKER OPERATOR [address] [place] [address] PCP - General 07/29/21 documented as of this encounter
--- OUTSIDE RECORDS SUMMARY | 2024-07-15 21:45 | XMS_ITS | Encounter Summary ---
Author Organization [facility] [address] Care Team Providers Care Financial Aid Administrator Name Role Phone Trisha Jacobson APRN Primary Care Provider + Reason for Referral * Consultation (Routine) - Closed Specialty Diagnoses / Procedures Referred By Contjarad t Referred To Contact Internal Medicine Diagnoses History of gluten intolerance Severe obesity Prediabetes Trisha Jacobson APRN [address] [place] [address] [facility] Internal Medicine [address] [place] [address] Referral ID Status Reason Start Date Expiration Date V isits Requested Visits Authorized [id number] Closed Continuity of Care PCP Updated and/or Approved 01/24/2023 01/24/2024 6 6 Encounter Details Date Type Department Care Team (Latest Contact Info) Description 01/24/2023 Transcribe Orders eDH Incoming Referrals [phone] Trisha Jacobson APRN [address] [place] [address] History of gluten intolerance; Severe obesity; Prediabetes Social History Tobacco Use Types Packs/Day Years [...] Scheduled Referrals Name Type Priority Associated Diagnoses Orde r Schedule Referral to Nutrition Services Outpatient Referral Routine History of gluten intolerance Severe obesity Prediabetes Ordered: 01/24/2023 documented as of this encounter Visit Diagnoses Diagnosis History of gluten intolerance Personal history of other diseases of digestive system Severe obesity Morbid obesity Prediabetes Other abnormal glucose documented in this encounter Care Teams Financial Aid Administrator Relationship Specialty Start Date End Date Trisha Jacobson, ADMISSION NURSE COORDINATOR [address] [place] [address] PCP - General 07/29/21 documented as of this encounter
--- OUTSIDE RECORDS SUMMARY | 2024-07-15 21:45 | XMS_ITS | Encounter Summary ---
Author Organization [facility] Address [facility] [place] [address] Care Team Providers Care Transmission Superintendent Name Role Phone Trisha Jacobson APRN Primary Care Provider + Encounter Details Date Type Department Care Team (Late st Contact Info) Description 04/02/2023 4:00 PM EDT Notes [place] [id number] Social History Tobacco Use Types Packs/Day Years Used Date Smoking Tobacco: Former Smokeless Tobacco: Never Alcohol Use Standard Drinks/Week Comments Not Currently 0 (1 standard drink = 0.6 oz pur e alcohol) [facility] Inpatient Questions Answer Date Recorded Does Anyone [...] on file documented as of this encounter Progress Notes * Pretty Gramajo - 04/02/2023 4:00 PM EDT PATIENT ATTENDED THE BARIATRIC SURGERY INFORMATION SESSION ON 04/02/2023 FOR THE [place] PROGRAM * Pretty Gramajo - 04/02/2023 4:00 PM EDT PATIENT ATTENDED THE BARIATRIC SURGERY INFORMATION SESSION ON 04/02/2023 FOR THE [place] PROGRAM documented in this encounter Plan of Treatment Not on file documented as of this encounter Visit Diagnoses Not on filedocumented in this encounter Care Teams Transmission Superintendent Relationship Specialty Start Date End Date Trisha Jacobson APRN [address] [place] [address] PCP - General 07/29/21 documented as of this encounter
--- OUTSIDE RECORDS SUMMARY | 2024-07-15 21:45 | XMS_ITS | Encounter Summary ---
Author Organization [facility] [place] [address] Care Team Providers Care Garment Cutter Name Role Phone Trisha Jacobson APRN Primary Care Provider + Encounter Details Date Type Department Care Team (Late st Contact Info) Description 01/09/2023 Telephone [place]stetrics [place] [phone] Rica Chawla Social History Tobacco Use Types Packs/Day Years [...] on filedocumented in this encounter Care Teams Garment Cutter Relationship Specialty Start Date End Date Trisha Jacobson APRN [address] [place] [address] PCP - General 07/29/21 documented as of this encounter
--- OUTSIDE RECORDS SUMMARY | 2024-07-15 21:45 | XMS_ITS | Encounter Summary ---
Author Organization [facility] [place] [address] Care Team Providers Care Motorboat Mechanic Inboard/Outboard Name Role Phone Trisha Jacobson APRN Primary Care Provider + Reason for Visit * Auth/Cert (Routine) Specialty Diagnoses / Procedures Referred By Nakia t Referred To Contact Diagnoses Abnormal uterine and vaginal bleeding, unspecified History of loop electrical excision procedure (LEEP) AUB and difficult office exam, needs endometrial sampling and pap in OR Procedures PRO HYSTEROSCOPY, W/ENDO BX CHG CYTOPATH,CERV/VAG,AUTO THIN LAYER,INTERP HYSTEROSCOPY, SURG W/ENDOMETRIAL SAMPLING, POLYPECTOMY (WRVU 4.17) PAP SMEAR UNDER ANESTHESIA (WRVU *) Jennifer Blair MD [facility] [place] [address] [facility] Referral ID Status Reason Start Date Expiration Date Visits Re quested Visits Authorized [id number] 1 1 Encounter Details Date Type Department Care Team (Late st Contact Info) Description 02/21/2023 9:45 AM EDT - 02/21/2023 11:45 AM EDT Surgery [place] [id number] Jennifer Blair MD [facility] [place] [address] HYSTEROSCOPY, SURG W/ENDOMETRIAL SAMPLING, POLYPECTOMY (WRVU 4.17) Social History Tobacco Use Types Packs/Day Years [...] Sign Reading Time Taken Comments Blood Pressure 154/97 02/21/2023 8:37 AM EDT Pulse 87 02/21/2023 8:37 AM EDT Temperature 36.7 ??C (98.1 ??F) 02/21/2023 8:37 AM ED T Respiratory Rate 18 02/21/2023 8:37 AM EDT Oxygen Saturation 97% 02/21/2023 8:37 AM EDT Inhaled Oxygen Concentration - - Weight 170.9 kg (376 lb 11.2 oz) 02/21/2023 8:37 AM EDT Height 162.6 cm (5' 4) 02/21/2023 8:37 AM EDT Body Mass Index 64.66 02/21/2023 8:37 AM EDT documented in this encounter Discharge Instructions * Patient Instructions* Yvonne Sylvester MD - 02/21/2023 5:13 AM EDT PATIENT DISCHARGE INSTRUCTIONS Call your doctor if you develop: A fever over 101 degrees Severe pain that does not get better after you take pain medicine. Heavy vaginal bleeding (bright red bleeding that soaks 1 or more pads each hours x 2 or more hours or passing blood clots that are larger than a golf ball) Vaginal discharge that smells bad Increasing pain, redness, or discharge Activity level: Most women are able to return to work the day after the procedure You may have some light vaginal bleeding. Wear sanitary pads if needed. Do not douche or use tampons for 2 weeks or until your doctor says it is okay. Diet: You can eat your normal diet. If your stomach is upset, try bland, low-fat foods like plain rice, broiled chicken, toast, and yogurt. Drink plenty of fluids (unless your doctor tells you not to). You may want to use a stool softener such as Colace twice daily and Metamucil or Citrucel once or twice daily to keep your bowel movements soft and regular. Medications: Ibuprofen 600mg by mouth every 6 hours as needed for cramping Driving: Do not drive until you are off of all narcotic medications and you are not feeling pain. Shower/Bath: Showering is fine. Be sure to make and go to all appointments, and call your doctor if you are having problems. It???salso a good idea to know your test results and keep a list of the medicines you take. documented in this encounter Medications at Time of Discharge Medication Sig Dispensed Refills Start Date End Date famotidine (Pepcid) 40 mg tablet 01/09/2023 Spiriva with HandiHaler 18 mcg Capsule, w/Inhalation Device INHALE THE CONTENTS OF ONE CAPSULE VIA HANDIHALER BY MOUTH EVERY DAY 10/22/2022 traZODone (Desyrel) 50 mg Tablet Take 50 mg by mouth nightly. 11/15/2022 ondansetron ODT (Zofran-ODT) 4 mg Tablet, Rapid Dissolve DISSOLVE ONE TABLET ON THE TONGUE EVERY 8 HOURS NEEDED FOR NAUSEA AND VOMITING 10/27/2022 L-Methylfolate 15 mg Tablet Take 15 mg by mouth daily. 10/14/2022 fluticasone propion-salmeteroL (ADVAIR HFA) 115-21 mcg/actuation HFA Aerosol Inhaler Inhale 2 puffs into the lungs 2 times daily. lamoTRIgine (LaMICtal) 100 mg Tablet Take 100 mg by mouth daily. lisdexamfetamine (Vyvanse) 10 mg Capsule Take 50 mg by mouth daily. Lavender Oil Oil by [facility].(Non-Drug; Combo Route) route. LORazepam (Ativan) 1 mg Tablet Take 1 mg by mouth every 6 hours as needed for Anxiety. ibuprofen (Advil;Motrin) 800 mg Tablet Take 1 tablet by mouth every 6 hours as needed for Pain. 30 tablet 12 09/22/2020 glucosam/chond/collagen /hyalur (JOINT SUPPORT ORAL) Take 3 tablets by mouth nightly. folic acid (FOLVITE) 800 mcg Tablet Take 400 mcg by mouth daily. polyethylene glycoL (Miralax) 17 gram/dose Powder MIX 17 GRAMS OF POWDER IN 8 OUNCES OF LIQUID AND DRINK ONCE DAILY TAKE NEEDED 05/02/2020 fexofenadine (PRAVIN) 180 mg Tablet TAKE 1 TABLET BY MOUTH ONCE DAILY 05/16/2020 Mag-G 27 mg magnesium (500 mg) Tablet TAKE 3 TO 4 TABLETS BY MOUTH TWICE DAILY 06/06/2020 diphenhydramine HCl (UNISOM, DIPHENHYDRAMINE, ORAL) Take by mouth. lactobacillus rhamnosus, GG, (CULTURELLE) 10 billion cell Capsule Take 1 capsule by mouth daily. diphenhydrAMINE (Benadryl) 25 mg Capsule Take 25 mg by mouth every 6 hours as needed for Itching. montelukast (Singulair) 10 mg Tablet TAKE 1 TABLET BY MOUTH IN THE EVENING 05/11/2020 omeprazole (PriLOSEC) 40 mg Capsule, Delayed Release(E.C.) TAKE 1 CAPSULE BY MOUTH TWICE DAILY REPLACES OMEPRAZOLE 20MG 05/26/2020 ferrous sulfate 325 mg (65 mg iron) Tablet TAKE 1 TABLET BY MOUTH ONCE DAILY 04/24/2020 lisinopriL (Prinivil;Zestril) 40 mg Tablet TAKE 1 TABLET BY MOUTH ONCE DAILY DOSE INCREASE 06/06/2020 cholecalciferol, Vitamin D3, 50 mcg (2,000 unit) Capsule TAKE 2 CAPSULES BY MOUTH ONCE DAILY 05/05/2020 UNABLE TO FIND Med Name: immunity boost; apple cider vinegar + keto acetaminophen (TYLENOL) 650 mg Tablet Sustained Release Take 650 mg by mouth every 8 hours as needed for Pain. Do not exceed 6 tabs in 24 hours Eye Itch Relief 0.025 % (0.035 %) Drops INSTILL 1 DROP INTO EACH EYE TWICE DAILY 03/29/2020 melatonin 10 mg Capsule TAKE 1 CAPSULE BY MOUTH ONCE DAILY IN THE EVENING 04/23/2020 Vitamins B Complex Tablet TAKE 1 TABLET BY MOUTH TWICE DAILY 05/05/2020 naproxen (NAPROSYN) 500 mg Tablet TAKE 1 TABLET BY MOUTH TWICE DAILY NEEDED FOR PAIN 05/16/2020 albuteroL 90 mcg/actuation HFA Aerosol Inhaler Inhale 2 puffs into the lungs every 4 hours as needed for Wheezing. Use with spacer CIS Free Text Med - Floxin 3 Drop(s), AU, Otic, TID 04/16/2001 documented as of this encounter Progress Notes * Violetta Puente RN - 02/21/2023 2:23 PM EDT AVS reviewed with patient and patients family member, both verbalized understanding. Patient meets discharge criteria at this time. VSS. Patient able to void prior to discharge. Patient discharged home with family member. IVAN Shipley documented in this encounter H&P Notes * Yvonne Sylvester MD - 02/21/2023 9:06 AM EDT Mask Design Engineer Inpatient Admission Interval Note I have reviewed the pre-procedure H&P completed by Laura Azar APRN on 02/02/2023. (X) Condition unchanged since H&P originally performed. See interval note below. HPI: Cecilia is a 38 y.o. female who was evaluated for abnormal uterine bleeding TVUS shoed thickened endometrium 17 mm, unable to tolerate pelvic exam in the office for an EMB. Decision was made to proceed with Hysteroscopy, D&C possible polypectomy and pap smear. She has a history of CAROLEE III s/p LEEP in 2020, HTN, pre-diabetes, morbid obesity, MEY, GERD, PTSD, insomnia, anxiety/depression, chronic low back pain and iron deficiency anemia. She was last seen [id number] for a similar concern. EMB done 06/11/2020 was benign and TVUS was normal except for a possibleright IUD arm impeded into the endometrium. Her IUD was removed in 09/2020. 11/2022: Unsatisfactory, HRHPV - 08/2021: NILM/HPV neg, benign ECC 07/2021: pap unsat/HPV neg, benign ECC 09/22/20 LEEP HSIL/CAROLEE III S: Cecilia Connelly feels well today. No complaints / concerns. Reports that her LMP was January 24 that lasted for about 15 days and was heavy. Denies bleeding or cramping today. Denies any changes to her past medical or past surgical history. No new medications or allergies. Presents today with her grandmother Gladys. Anticipating same day surgery. Preferred pharmacy is [facility] in [place]. O: BP (!) 154/97 (BP Location (NBP): Left arm) Pulse 87 Temp 36.7 ??C (98.1 ??F) (Temporal) Resp18 Ht 162.6 cm (5' 4) Wt (!) 170.9 kg (376 lb 11.2 oz) LMP 01/25/2023 SpO2 97% BMI 64.66kg/m?? Gen: Sitting in bed, appears comfortable Resp: Normal work of breathing. Abd: Soft, nontender, non distended Ext: Warm, well perfused, non-tender *remainder of exam deferred to the OR Recent Results (from the past 24 hour(s)) POCT urine Result Value Ref Range POC Urine HCG Negative POC Control Internal Controls Acceptable A/P: 38 y.o. female presents for planned Hysteroscopy, D&C and pap smear for AUB. No interval changes in history or physical exam. -- POCT urine : Post bilateral salpingectomy -- Surgical consent reviewed with patient and placed in the chart; previously signed. -- Antibiotics: not indicated -- VTE prophylaxis: SCDs -- Proceed to OR for planned procedure. Yvonne Sylvester MD, PGY1 02/21/2023 Associated attestation - Jennifer Blair MD - 02/21/2023 9:24 AM EDT I have seen the patient and reviewed Dr. Sylvester's above history and I agree with the details aswritten. The assessment and plan were formulated in discussion with me and I agree with them as documented. Added ECC to the consent given her history of CAROLEE III and the difficulty visualizing the cervix in clinic. Cecilia in agreement with plan, initialed consent. She continues to desire a hysterectomy for AUB. I reviewed I can refer her for discussion with Employee Relation Manager Oncology as if she is a candidate for hysterectomy it would need to be robotic. It may be that a weight loss requirement would be necessary for surgical safety and feasibility but she is open to the consultative discussion with Employee Relation Manager Oncology. Jennifer Blair MD documented in this encounter Miscellaneous Notes * Brief Op Note - Jennifer Blair MD - 02/21/2023 12:31 PM EDT Brief Operative Note Patient Name: Cecilia Connelly : [id number] MR#: [id number] Case Date: 02/21/2023 Surgeon: Surgeon(s) and Role: * Jennifer Blair MD - Primary * Yvonne Sylvester MD - Resident - Assisting Preoperative diagnosis: AUB and difficult office exam, needs endometrial sampling and pap in OR Postoperative diagnosis: AUB and difficult office exam, needs endometrial sampling and pap in OR Procedure(s) (LRB): HYSTEROSCOPY, SURG W/ENDOMETRIAL SAMPLING, POLYPECTOMY (WRVU 4.17) (N/A) PAP SMEAR UNDER ANESTHESIA (WRVU *) (N/A) ENDOCERVICAL CURETTAGE, W\O\DILATION (WRVU 1.19) (N/A) BMI modifier Procedure as described by surgeon: Hysteroscopy, D&C, polypectomy Pap smear under Anesthesia Endocervical curettage BMI modifier Anesthesia: General Findings: 1) EUA: Mobile cervix, smooth, mostly anterior cervical lip, no discernable posterior cervix. Pointing down 2) Hysteroscopy: Thin endometrium throughout, small 3 mm polyp in right cornua, bilateral tubal ostia visualized 3) This patient has morbid obesity with a Body mass index is Body mass index is 64.66 kg/m??.. Thismade the operation significantly more difficult. Her obesity increased the time required for patient positioning, necessitated additional equipment and supplies, and increased the difficulty, complexity, and time required to perform the required surgery. Specifically, it was much more difficult to prepare the patient for surgery, obtain adequate exposure and perform the broderick parts of the operationbecause of this patient's obesity. I estimate that this problem increased the time required to perform the surgery by 5 times as much. 4) Fluid Deficit 150 cc normal saline Complications: None Estimated Blood Loss: 10 cc Specimens removed during surgery: 1) Pap with cotesting 2) Endocervical curettage 3) Endometrial curettings (from biopsy pipelle, sharp, and myosure) Fluids: 1500 cc crystalloid PRBCs: none (See Anesthesia Record/Report for Other Blood Products) Urine Output: not measured Drains: None Disposition: awakened from anesthesia, extubated and taken to the recovery room in a stable condition, having suffered no apparent untoward event. Condition: doing well without problems (Please see the Surgical Encounter Summary for any Implant and Specimen details pertinent to this patient.) Surgical Infection Prevention Bundle Used? N/A Jennifer Blair MD * Op Note - Jennifer Blair MD - 02/21/2023 11:06 AM EDT Images from the original note were not included. [facility] Operative Note Patient Name: Cecilia Connelly : [id number] MR#: [id number] Case Date: 02/21/2023 Surgeon: Surgeon(s) and Role: * Jennifer Blair MD - Primary * Yvonne Sylvester MD - Resident - Assisting Preoperative diagnosis: AUB and difficult office exam, needs endometrial sampling and pap in OR Postoperative diagnosis: AUB and difficult office exam, needs endometrial sampling and pap in OR Procedure(s) (LRB): HYSTEROSCOPY, SURG W/ENDOMETRIAL SAMPLING, POLYPECTOMY (WRVU 4.17) (N/A) PAP SMEAR UNDER ANESTHESIA (WRVU *) (N/A) ENDOCERVICAL CURETTAGE, W\O\DILATION (WRVU 1.19) (N/A) BMI modifier Procedure as described by surgeon: Hysteroscopy, D&C, polypectomy Pap smear under Anesthesia Endocervical curettage BMI modifier Anesthesia: General Findings: 1) EUA: Mobile cervix, smooth, mostly anterior cervical lip, no discernable posterior cervix. Pointing down 2) Hysteroscopy: Thin endometrium throughout, small 3 mm polyp in right cornua, bilateral tubal ostia visualized. See images in Media tab. 3) This patient has morbid obesity with a Body mass index is Body mass index is 64.66 kg/m??.. Thismade the operation significantly more difficult. Her obesity increased the time required for patient positioning, necessitated additional equipment and supplies, and increased the difficulty, complexity, and time required to perform the required surgery. Specifically, it was much more difficult to prepare the patient for surgery, obtain adequate exposure and perform the broderick parts of the operationbecause of this patient's obesity. I estimate that this problem increased the time required to perform the surgery by 5 times as much. 4) Fluid Deficit 150 cc normal saline Complications: None Estimated Blood Loss: 10 cc Specimens removed during surgery: 1) Pap with cotesting 2) Endocervical curettage 3) Endometrial curettings (from biopsy pipelle, sharp, and myosure) Fluids: 1500 cc crystalloid PRBCs: none (See Anesthesia Record/Report for Other Blood Products) Urine Output: not measured Drains: None Disposition: awakened from anesthesia, extubated and taken to the recovery room in a stable condition, having suffered no apparent untoward event. Condition: doing well without problems (Please see the Surgical Encounter Summary for any Implant and Specimen details pertinent to this patient.) Surgical Infection Prevention Bundle Used? N/A HPI: Cecilia Connelly is a 38 y.o. with h/o tubal ligation, 2 prior cesareans, and CAROLEE III s/pLEEP now with AUB and need for repeat interval pap smear. Consented for hysteroscopy, D&C, possible polypectomy, ECC, and pap with cotesting. Of note, exams are difficult due to anterior nature of cervix and vaginal length / habitus. H/o discomfort with the LGN IUD and prior request to have it removed. Not currently on hormone therapy for menstrual management. Procedure: Procedure: Cecilia Connelly was taken to the OR with IV running where general Anesthesia was found to be adequte. She was placed in the dorsal supine lithotomy position in [facility] stirrupsin a neurologically neutral position. Exam under anesthesia revealed the above findings. A long graves speculum (the non single sided was the only one that was effective) was placed in the vagina with adequate visualization of the cervix. The cervix was noted to be deep and facing directly down. There is seemingly only a remaining anterior portion of the cervix. To complete the pap this portion of anterior cervix was grasped with a single toothed tenaculum and the pap and endocervical brush collections were performed. An ECC was subsequently performed. Prior to attempting the hysteroscopy,the decision was made to try and perform an EMBx before losing the visualization. The cervix was prepped with Hibiclens. The cervix was dilated to 15 Surinamese with Cardenas dilators. The endo biopsy pipelle would not go through the cervix given its persistently downward facing nature. The sharp curette did pass and advance into the cavity with collection of scant tissue given. At this time, the vagina and vulva were prepped with Hibiclens and drapes placed. It was determinedthere was no way the hysteroscope would be able to be introduced into the completely downward facing cervix through the long non- single sided graves. It had been determined the long single-sided graves was too short as was the weighted speculum. So the tenaculum was left in place and the speculum disassembled around the tenaculum and removed. With gentle traction on the tenaculum, the zero degreeMyosure hysteroscope was passed into the cervix by palpation, and, under direct visualization introduced into the uterine cavity. At this point the hysteroscopy was completely hubbed at the vaginal introitus. Luckily, there was excellent visualization of the uterine cavity which was noted to be essentially empty, with only a few mm piece of endometrium versus polyp in the right cornua but an otherwise thin endometrium throughout. Bilateral ostia were well visualized. The Myosure lite was assembled and introduced into the cavity. The polyp was excised using this device without complication. The hysteroscope and tenaculum were removed and the curved endo sampling Pipelle on a syringe brought from clinic was used by palpation and digital exam to collect an endometrial sample as the prior two collections had seemed scant and we wanted to ensure an adequate endometrial sampling given the difficulty of obtaining it. This returned what seemed to be an appropriate sample. The patient tolerated the procedure extremely well. Sponge and needle counts were correct x 2. Of note, Cecilia is very interested in a hysterectomy. Her BMI is curently 64. She would not be a candidate for a vaginal hysterectomy given the vaginal length, lack of accessible posterior cervix (s/p LEEP for CAROLEE III), and two prior cesareans. Placement of a uterine manipulator for a TLH would be difficult and may require trying to pass it over one's finger with a digital exam. Or at least with the long (NON single sided speculum if possible as that was the only one today that would visualize the protrusion of her remaining anterior cervix). She may benefit from a Employee Relation Manager Onc consult to discuss BMI at which a hysterectomy would be safe and if WWC is an option for a weight loss expectation prior to hysterectomy. Will await final path and review options with Cecilia. Image below of uterine cavity and fundus. Thin endometrium. Small right sided cornual polyp, Right ostia at 7 oclock in picture. Left ostia at 3 oclock. Jennifer Blair MD Obgyn Attending Attestation I was the attending physician supervising the resident in the above care and I was present with theresident for the entire procedure and I performed the procedure. Jennifer Blair MD documented in this encounter Plan of Treatment Not on file documented as of this encounter Procedures Procedure Name Priority Date/Time Associated Diagnosis Comments ENDOCERVICAL CURETTAGE\W\O\DILATION Routine 02/21/2023 12:45 PM EDT Abnormal uterine bleeding (AUB) History of loop electrical excision procedure (LEEP) HPV Routine 02/21/2023 11:54 AM EDT MERCURY CELL CLEANER CYTOLOGY INTERPRETATION Routine 02/21/2023 11:54 AM EDT MERCURY CELL CLEANER CYTOLOGY FINAL REPORT Routine 02/21/2023 11:54 AM EDT CYTOPATHOLOGY GYNECOLOGICAL Routine 02/21/2023 11:54 AM EDT SPECIMEN TO PATHOLOGY Routine 02/21/2023 11:38 AM EDT SURGICAL PATHOLOGY REPORT Routine 02/21/2023 11:15 AM EDT SPECIMEN TO PATHOLOGY Routine 02/21/2023 11:15 AM EDT Endocervical Curettage (15271) 02/21/2023 10:39 AM EDT Abnormal uterine bleeding (AUB) History of loop electrical excision procedure (LEEP) CHG CYTOPATH,CERV/VAG,AUTO THIN LAYER,INTERP 02/21/2023 10:39 AM EDT Abnormal uterine bleeding (AUB) History of loop electrical excision procedure (LEEP) Hysteroscopy, W/Endo Bx (16282) 02/21/2023 10:39 AM EDT Abnormal uterine bleeding (AUB) History of loop electrical excision procedure (LEEP) POCT URINE Routine 02/21/2023 8:57 AM EDT HYSTEROSCOPY, SURG W/ENDOMETRIAL SAMPLING, POLYPECTOMY Routine 02/21/2023 Abnormal uterine bleeding (AUB) History of loop electrical excision procedure (LEEP) documented in this encounter Results * MERCURY CELL CLEANER Cytology Interpretation (02/21/2023 11:54 AM EDT) Employee Relation Manager Cytology Interpretation [facility] Comment:Employee Relation Manager Cytology Final R eport Endocervical Component Not Present [facility] AP Specimen 02/21/2023 11:5 4 AM EDT 03/09/2023 9:35 AM EDT Jennifer Blair MD PATHOLOGY/CYTOLOGY O RDERABLES [facility] [place] [address] * Employee Relation Manager Cytology Final Report (02/21/2023 11:54 AM EDT) Employee Relation Manager Cytology Final Report [id number] ? Location: [facility]; [facility]; A The signing pathologist has (i) examined the relevant preparation(s) for the specimen(s) and (ii) rendered or confirmed the diagnosis(es). . ? Employee Relation Manager Final DIAGNOSIS Normal Negative for intraepithelial lesion or malignancy (NILM). For consensus guidelines for the management of cervical cancer screening test results, please see: ?? http://www.asccp.or g . Electronically signed by: ?Rajiv CASTORENA(ASCP) Giovana Hoa Verified: ??03/09/2023 9:35 ?? Salesperson Floor Coverings Performed at: ??-[facility] Dept. of Pathology, [place] [address] Senior Patrol Agent: Noel Chinchilla MD, AP, ??IA Certificate: [id number] HPV RESULTS HPV16 (Result) ?Negative HPV18 (Result) [...] Clinical Genomics and Advanced Technology (CGAT) at [facility]. ? - Jesu Mott, PhD, [facility], Director-CGAT STATEMENT OF ADEQUACY Specimen submitted is satisfactory [...] previous abnormal Pap . CLINICAL INFORMATION Prior MERCURY CELL CLEANER Therapy: ? Other (comment) Hist of HPV Vaccine: ? Yes ICD Diagnosis: ? Z12.4 Encounter for screening for malignant neoplasm of cervix Clinical Data, Significant Therapy and Clinical Impression ?? : ?history of leep for cin3 This Pap Test has been evaluated with the assistance of the Shop[employer] Pap Test Imaging System. Note: The Pap test is a screening test for cervical cancer with an inherent false-negative rate dependent upon several variables. For further information please contact the [facility] Laboratory. Reference: Bc SNOW. Customer Advisor Specialist of Pap Smear Results. In: Lyudmila BS, Nathan HH, ed. The Pap Smear. [place]: Brady, 2002: 71-77. [facility] 02/21/2023 11:5 4 AM EDT Jennifer Blair MD PATHOLOGY/CYTOLOGY O CHEO [facility] [place] [address] * HPV (02/21/2023 11:54 AM EDT) HPV16 NEGATIVE NEGATIVE [facility] HPV 18 NEGATIVE NEGATIVE [facility] HPV Other HR NEGATIVE NEGATIVE [facility] HPV Interpretation See Comment [facility] Comment: NEGATIVE for high-risk HPV *. [...] MD PATHOLOGY/CYTOLOGY O CHEO Performing Organization Address [facility] [facility] [place] [address] * Cytopathology Gynecological (02/21/2023 11:54 AM EDT) AP Specimen 02/21/2023 11:5 4 AM EDT 02/21/2023 11:54 AM EDT Narrative [facility] - 02/21/2023 11:54 AM EDT Specimen requisition ordered. ??Separate Pathology report to follow Jennifer Blair MD PATHOLOGY/CYTOLOGY O CHEO Performing Organization Address [facility] Co de Phone Number [facility] [place] [address] * Specimen to Pathology (02/21/2023 11:38 AM EDT) AP Specimen 02/21/2023 11:3 8 AM EDT 02/21/2023 11:38 AM EDT Narrative [facility] - 02/21/2023 11:38 AM EDT Specimen requisition ordered. ??Separate Pathology report to follow Jennifer Blair MD PATHOLOGY/CYTOLOGY O ROSALVAERAZULEIMA [facility] [place] [address] * Surgical Pathology Report (02/21/2023 11:15 AM EDT) Final Diagnosis [id number] ? Location: [facility]; [facility]; A The signing pathologist has (i) examined the relevant preparation(s) for the specimen(s) and (ii) rendered or confirmed the diagnosis(es). . ? Addendum ADDENDUM DISCUSSION The comment in the Discussion was inadvertently omitted from the original report. The diagnosis is unchanged. Comment: Hyperplasia is difficult to evaluate during the secretory phase of the menstrual cycle. Electronically signed by: ?Mary Jane Sheridan DO Verified: ??02/26/2023 11:04 ??Pathologist Performed at: ??-[facility] Dept. of Pathology, [place] [address] Senior Patrol Agent: Noel Chinchilla MD, AP, ??IA Certificate: [id number] ?Surgical Pathology DIAGNOSIS A - Endocervical curettings: - Fragments of benign endocervical mucosa intermixed with cervical ??mucus and blood clot. - Atypical squamous metaplasia associated with acute and chronic ??cervicitis. - No definite evidence of dysplasia or HPV effect. B - Endometrial ??curettings : - Fragments of benign secretory endometrium (see Discussion). - No evidence of malignancy or endometritis. Electronically signed by: ?Mary Jane Sheridan DO Verified: ??02/26/2023 10:13 ??Pathologist Performed at: ??-[facility] Dept. of Pathology, [place] [address] Senior Patrol Agent: Noel Chinchilla MD, AP, ??CLIA Certificate: [id number] SPECIMEN(S) SUBMITTED A - Endocervical ??curettings , curetting (1) B - Endometrial ??curettings , curetting (1) CLINICAL INFORMATION AUB and difficult exam in office, needs endometrial sampling and Pap in OR SPECIMEN PROCESSING A - Labeled/Fixative: Endocervical curettings, formalin. Quantity/Size: Fragments, 2.5 x 2.0 x 0.1 cm. Tissue Description: Aggregate of barbosa-pink soft tissue admixed with mucus. Sections/Processi ng: Submitted in toto in 1 cassette labeled A1. B - Labeled/Fixative: Endometrial curettings, formalin. Quantity/Size: Fragments, 3.5 x 2.5 x 0.5 cm. Tissue Description: Aggregate of barbosa-pink rubbery soft tissue admixed with blood clot. Sections/Processi ng: Submitted in toto in 2 cassettes labeled B1-B2. ??nrl 02/26/2023 11:04 AM EDT [facility] ENDOMETRIAL STRUCTURE / Unknown 02/21/2023 11:15 AM EDT 02/21/2023 11:15 AM EDT ENDOMETRIAL STRUCTURE / Unknown 02/21/2023 11:15 AM EDT 02/21/2023 11:15 AM EDT Jennifer Blair MD PATHOLOGY/CYTOLOGY O CHEO [facility] [address] [place] [address] * Specimen to Pathology (02/21/2023 11:15 AM EDT) AP Specimen 02/21/2023 11:1 5 AM EDT 02/21/2023 11:15 AM EDT Narrative [facility] - 02/21/2023 11:15 AM EDT Specimen requisition ordered. ??Separate Pathology report to follow Jennifer Blair MD PATHOLOGY/CYTOLOGY O RDERAZULEIMA [facility] [place] [address] * POCT urine (02/21/2023 8:57 AM EDT) POC Urine HCG Negative POC Control Internal Controls Acceptable 02/21/2023 8:57 AM EDT Jennifer Blair MD POINT OF CARE TEST O RDERABLES * HYSTEROSCOPY, SURG W/ENDOMETRIAL SAMPLING, POLYPECTOMY (02/21/2023) Jennifer Blair MD GENERAL SURGICAL ORD ERABLES documented in this encounter Visit Diagnoses Diagnosis Abnormal uterine bleeding (AUB) History of loop electrical excision procedure (LEEP) Abnormal uterine bleeding (AUB) History of loop electrical excision procedure (LEEP) documented in this encounter Administered Medications Inactive Administered Medications - up to 3 most recent administrations Medication Order MAR Action Action Date Dose Rate Site acetaminophen (Tylenol) tablet 1,000 mg 1,000 mg, Oral, ONCE, 1 dose, On Sun02/21/23 at 0845, Administer with SIP of H2O only. Maximum dose of acetaminophen is 4,000 mg from all sources in 24 hours., Day of Surgery (Day of Procedure), Routine Given 02/21/2023 8:42 AM EDT 1,000 mg fentaNYL (pf) (50 mcg/mL) multi-dose injection 25 mcg 25 mcg, Intravenous, EVERY 5 MIN PRN, Starting on Sun02/21/23 at 1320, Until Sun02/21/23 at 1423, Pain, Moderate to severe pain (6-10 out of 10), Hold for respiratory rate less than 10 per minute. Maximum dose 100 mcg over one hour, including OR administration. If ordered with HYDROmorphone, give HYDROmorphone first and use fentaNYL for breakthrough pain. Notify anesthesia team if the maximum of 100 mcg of fentaNYL AND 2 mg of HYDROmorphone has been administered and patient still complains of moderate to severe pain (6-10)., PACU Recovery, Routine Given 02/21/2023 1:28 PM EDT 25 mcg documented in this encounter Active and Recently Administered Medications Times are shown in EDT. Scheduled Medication Order 02/19/2023 02/20/2023 02/21/2023 acetaminophen (Tylenol) tablet 1,000 mg (COMPLETED) 1,000 mg, Oral, ONCE, 1 dose, On Sun02/21/23 at 0845, Administer with SIP of H2O only. Maximum dose of acetaminophen is 4,000 mg from all sources in 24 hours., Day of Surgery (Day of Procedure), Routine 0842 (Given - Provid er: Promise Pedro RN) ibuprofen (Advil) tablet 600 mg 600 mg, Oral, EVERY 6 HOURS SCHEDULED, First dose on Ro 02/22/23 at 0000, Until Discontinued, Begin after the Ketorolac is discontinued, Routine Continuous Medication Order 02/19/2023 02/20/2023 02/21/2023 lactated ringers infusion (CANCELED) 1,000 mL, at 100 mL/hr, Intravenous, CONTINUOUS, Starting on Sun02/21/23 at 0845, Until Sun02/21/23 at 1423, Day of Surgery (Day of Procedure) 1042 (New Bag - Prov ider: Angelique Daugherty DO)1139 (New Bag - Provider: Angelique Daugherty DO) PRN Medication Order 02/19/2023 02/20/2023 02/21/2023 acetaminophen (Tylenol) tablet 650 mg 650 mg, Oral, EVERY 6 HOURS PRN, Starting on Sun02/21/23 at 1251, Until Sun02/21/23 at 1625, Pain, If multiple pain medications ordered, use acetaminophen first. Maximum dose of acetaminophen is 4000 mg from all sources in 24 hours. When ordered for pain, acetaminophen should be given even when other ordered pain medications are indicated., Routine fentaNYL (pf) (50 mcg/mL) multi-dose injection 25 mcg (CANCELED)(Linked Group 1) 25 mcg, Intravenous, EVERY 5 MIN PRN, Starting on Sun02/21/23 at 1320, Until Sun02/21/23 at 1423, Pain, Moderate to severe pain (6-10 out of 10), Hold for respiratory rate less than 10 per minute. Maximum dose 100 mcg over one hour, including OR administration. If ordered with HYDROmorphone, give HYDROmorphone first and use fentaNYL for breakthrough pain. Notify anesthesia team if the maximum of 100 mcg of fentaNYL AND 2 mg of HYDROmorphone has been administered and patient still complains of moderate to severe pain (6-10)., PACU Recovery, Routine 1328 (Given - Provid er: Justin Ashley RN) Linked Groups Order Group 1: fentaNYL (pf) (50 mcg/mL) multi-dose injection 12.5 mcg (CANCELED) 12.5 mcg, Intravenous, EVERY 5 MIN PRN, Starting on Sun02/21/23 at 1320, Until Sun02/21/23 at 1423, Pain, Mild to moderate pain (1-5 out of 10), Hold for respiratory rate less than 10 per minute. Maximum dose 100 mcg over one hour, including OR administration. If ordered with HYDROmorphone, give HYDROmorphone first and use fentaNYL for breakthrough pain. Notify anesthesia team if the maximum of 100 mcg of fentaNYL AND 2 mg of HYDROmorphone has been administered and patient still complains of moderate to severe pain (6-10)., PACU Recovery, Routine Or fentaNYL (pf) (50 mcg/mL) multi-dose injection 25 mcg (CANCELED)Jump to med 25 mcg, Intravenous, EVERY 5 MIN PRN, Starting on Sun02/21/23 at 1320, Until Sun02/21/23 at 1423, Pain, Moderate to severe pain (6-10 out of 10), Hold for respiratory rate less than 10 per minute. Maximum dose 100 mcg over one hour, including OR administration. If ordered with HYDROmorphone, give HYDROmorphone first and use fentaNYL for breakthrough pain. Notify anesthesia team if the maximum of 100 mcg of fentaNYL AND 2 mg of HYDROmorphone has been administered and patient still complains of moderate to severe pain (6-10)., PACU Recovery, Routine documented in this encounter Care Teams Motorboat Mechanic Inboard/Outboard Relationship Specialty Start Date End Date Trisha Jacobson, [employer] [address] [place] [address] PCP - General 07/29/21 documented as of this encounter
--- OUTSIDE RECORDS SUMMARY | 2024-07-15 21:45 | XMS_ITS | Encounter Summary ---
Author Organization [facility] Address [facility] [place] [address] Care Team Providers Care Pharmacology Associate Name Role Phone JacobsonDanyelbraden Camara APRN Primary Care Provider + Reason for Visit * Reason Comments Follow-up Repap Encounter Details Date Type Department Care Team ([facility] Contact Info) Description 09/15/2021 1:00 PM EST Office Visit Obstetrics [place] [address] Jennifer Blair MD [facility] OBST[place] [address] Carcinoma in situ of cervix, unspecified location Social History Tobacco Use Types Packs/Day Years [...] Sign Reading Time Taken Comments Blood Pressure 139/92 09/15/2021 1:15 PM EST Pulse 81 09/15/2021 1:15 PM EST Temperature 37.2 ??C (98.9 ??F) 09/15/2021 1:15 PM ES T Respiratory Rate 20 09/15/2021 1:15 PM EST Oxygen Saturation 98% 09/15/2021 1:15 PM EST Inhaled Oxygen Concentration - - Weight 195.1 kg (430 lb 3.2 oz) 09/15/2021 1:15 PM EST Height 162.6 cm (5' 4) 09/15/2021 1:15 PM EST Body Mass Index 73.84 09/15/2021 1:15 PM EST documented in this encounter Progress Notes * Marycruz Nelson LNA - 09/15/2021 1:00 PM EST This patient was seen in the OBGYN clinic today. I was present as coronary clinical specialist for the sensitive partsof her examination. Examination chaperoned by RAHEL Padron. * Jennifer Blair MD - 09/15/2021 1:00 PM EST Procedure Note: follow up Pap Smear and ECC Indication: ?? 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 Recent pap and ECC to follow up LEEP were unsatisfactory and insufficient sample respectively Procedure: Verbal consent was obtained. A long graves speculum was introduced into the vagina for visualization of the cervix. The cervix was noted to be pointing directly down (Dr. Cope in room with patient's permission in order to help hold the speculum). The pap smear was obtained. A tenaculum was placed to collect the endocervical sampling and ECC. There was some spotting of blood which may affect the result (I.e. may return unsatisfactory). The tenaculum was removed. Adequate hemostasis was noted.Cecilia tolerated the procedure well though was understandably painful for her. The sample was sent to Pathology. A/P: ?? Does not smoke ?? Completed HPV vaccine series ?? Will contact Cecilia with results ?? If results inconclusive again, consider OR Procedure for pap and ? Small repeat interval LEEP given difficulty sampling in office 1. Carcinoma in situ of cervix, unspecified location Cytopathology Gynecological Specimen to Pathology Jennifer Blair MD documented in this encounter Plan of Treatment Not on file documented as of this encounter Procedures Procedure Name Priority Date/Time Associated Diagnosis Comments DOUBLE HEAD MACHINE OPERATOR CYTOLOGY FINAL REPORT Routine 09/15/2021 1:59 PM EST SURGICAL PATHOLOGY REPORT Routine 09/15/2021 1:59 PM EST CYTOPATHOLOGY GYNECOLOGICAL Routine 09/15/2021 1:59 PM EST Carcinoma in situ of cervix, unspecified location SPECIMEN TO PATHOLOGY Routine 09/15/2021 1:59 PM EST Carcinoma in situ of cervix, unspecified location HPV Routine 09/15/2021 1:00 PM EST DOUBLE HEAD MACHINE OPERATOR CYTOLOGY INTERPRETATION Routine 09/15/2021 1:00 PM EST DOUBLE HEAD MACHINE OPERATOR CYTOLOGY FINAL REPORT Routine 09/15/2021 1:00 PM EST documented in this encounter Results * Surgical Pathology Report (09/15/2021 1:59 PM EST) Final Diagnosis [id number] ? Location: 5L The signing pathologist has (i) examined the relevant preparation(s) for the specimen(s) and (ii) rendered or confirmed the diagnosis(es). . ?Surgical Pathology DIAGNOSIS Endocervical curettings: ?1. Scant minute fragments of predominantly ? squamous mucosa. ?2. No evidence of dysplasia or HPV effect. CR-0 Electronically signed by: ?Shahbaz GONZALEZ, Pradip Mae Verified: ??09/22/2021 12:13 ??Pathologist Performed at: ??-[facility] [place] [place], [place], [place] SPECIMEN(S) SUBMITTED ECC CLINICAL INFORMATION History of HGSIL SPECIMEN PROCESSING A - Labeled/Fixative: Patient demographics, formalin. Quantity/Size: Fragments, up to 0.1 cm in aggregate. Tissue Description: Scant, wispy damico-barbosa tissue fragments. Sections/Processi ng: Submitted en toto in 1 cassette labeled A1. b 09/22/2021 12:13 PM EST [facility] ENDOCERVICAL STRUCTURE / Unknown 09/15/2021 1:59 PM EST 09/15/2021 1:59 PM EST Jennifer Blair MD PATHOLOGY/CYTOLOGY O RDERAZULEIMA [facility] [place] [address] * Machine Deburrer Cytology Final Report (09/15/2021 1:59 PM EST) Machine Deburrer Cytology Final Report [id number] ? Location: 5L The signing pathologist has (i) examined the relevant preparation(s) for the specimen(s) and (ii) rendered or confirmed the diagnosis(es). . ?Surgical Pathology DIAGNOSIS Endocervical curettings: ?1. Scant minute fragments of predominantly ? squamous mucosa. ?2. No evidence of dysplasia or HPV effect. CR-0 Electronically signed by: ?Shahbaz GONZALEZ, Pradip Mae Verified: ??09/22/2021 12:13 ??Pathologist Performed at: ??-[facility] [place]. of [place], [place], [place] SPECIMEN(S) SUBMITTED ECC CLINICAL INFORMATION History of HGSIL SPECIMEN PROCESSING A - Labeled/Fixative: Patient demographics, formalin. Quantity/Size: Fragments, up to 0.1 cm in aggregate. Tissue Description: Scant, wispy damico-barbosa tissue fragments. Sections/Processi ng: Submitted en toto in 1 cassette labeled A1. [facility] 09/15/2021 1:59 PM EST Jennifer Blair MD PATHOLOGY/CYTOLOGY O CHEO Performing Organization Address [facility] [place] [address] * Specimen to Pathology (09/15/2021 1:59 PM EST) AP Specimen 09/15/2021 1:59 PM EST 09/15/2021 1:59 PM EST Narrative [facility] - 09/15/2021 1:59 PM EST Specimen requisition ordered. ??Separate Pathology report to follow Jennifer Blair MD PATHOLOGY/CYTOLOGY O CHEO Performing Organization Address [facility] [place] [address] * Cytopathology Gynecological (09/15/2021 1:59 PM EST) AP Specimen 09/15/2021 1:59 PM EST 09/15/2021 1:59 PM EST Narrative [facility] - 09/15/2021 1:59 PM EST Specimen requisition ordered. ??Separate Pathology report to follow Jennifer Blair MD PATHOLOGY/CYTOLOGY O CHEO Performing Organization Address [facility] [place] [address] * Machine Deburrer Cytology Final Report (09/15/2021 1:00 PM EST) Machine Deburrer Cytology Final Report [id number] ? Location: 5L The signing pathologist has (i) examined the relevant preparation(s) for the specimen(s) and (ii) rendered or confirmed the diagnosis(es). . ? Machine Deburrer Final DIAGNOSIS Normal Negative for intraepithelial lesion or malignancy (NILM). For consensus guidelines for the management of cervical cancer screening test results, please see: ?? http://www.asccp.o rg . Electronically signed by: ?Sia CASTORENA(ASCP)Cristal Verified: ??10/07/2021 14:28 ??Joint Cutter Machine Performed at: ??-[facility] [place]. [place], [place], [place] HPV RESULTS HPV16 (Result) ?Negative HPV18 (Result) ?Negative HPVOHR (Result) ? Negative HPV (Interpretation) ?See Below HPV (Interpretation) Text: NEGATIVE for high-risk HPV *. *Testing negative for high risk HPV means that the specimen is negative for the following 14 types tested: types 16, 18, 31, 33, 35, 39, 45, 51, 52, 56, 58, 59, 66, and 68. The test is not intended to detect low risk HPV types. Lidia tiffany HPV test Specimen: HPV Testing - Cytology Liquid Based Prep The Lidia tiffany ? HPV test was validated, performed and results reported through the [facility] ([facility]) at [facility]. ? - Jesu Mott, PhD, [facility], Director-[facility] STATEMENT OF ADEQUACY Specimen submitted is satisfactory. Endocervical component present. CLINICAL INFORMATION HPV Option: ? Concurrent HPV and Pap CT/NG Option: ? No Preparation: ?Liquid Based Pap Specimen Source: ?Cervical Endocervical LBP LMP: ?N/A Hysterectomy?: ?No ?: ?No ?: ?No I.U.D.?: ?No Pelvic Radiation: ? No Hist Abnl Pap/Biopsy?: ??Yes, history of previous abnormal Pap Prior DOUBLE HEAD MACHINE OPERATOR Therapy?: ? Other (comment) Hist of HPV Vaccine?: ?? No ICD Diagnosis: ?Z12.4 Encounter for screening for malignant neoplasm of cervix Clinical Data, Significant Therapy and Clinical Impression ?? : ?? H/o LEEP, HGSIL . CLINICAL INFORMATION Referring Identifier: ?(not provided) This Pap Test has been evaluated with the assistance of the apartum Pap Test Imaging System. Note: The Pap test is a screening test for cervical cancer with an inherent false-negative rate dependent upon several variables. For further information please contact the [facility]. Reference: Bc SNOW. Maintenance Scheduler of Pap Smear Results. In: Lyudmila BS, Nathan HH, ed. ??The Pap Smear. [place]: Brady, 2002: 71-77. [facility] 09/15/2021 1:00 PM EST Jennifer Blair MD PATHOLOGY/CYTOLOGY O CHEO Performing Organization Address [facility] de Phone Number [facility] [place] [address] * DOUBLE HEAD MACHINE OPERATOR Cytology Interpretation (09/15/2021 1:00 PM EST) Machine Deburrer Cytology Interpretation [facility] Comment:Machine Deburrer Cytology Final R eport Endocervical Component Present [facility] AP Specimen 09/15/2021 1:00 PM EST 10/07/2021 2:28 PM EST Jennifer Blair MD PATHOLOGY/CYTOLOGY O CHEO Performing Organization Address [facility] Co de Phone Number [facility] [place] [address] * HPV (09/15/2021 1:00 PM EST) HPV16 NEGATIVE NEGATIVE [facility] HPV 18 NEGATIVE NEGATIVE [facility] HPV Other HR NEGATIVE NEGATIVE [facility] HPV Interpretation See Comment [facility] Comment: NEGATIVE for high-risk HPV [...] or specimen types are not validated/recommended. Cervical 09/15/2021 1:00 PM EST 09/15/2021 5:37 PM EST Narrative Resulting Agency Comment Spec In Lab Jennifer Blair MD PATHOLOGY/CYTOLOGY O RDERABLES [facility] [place] [address] documented in this encounter Visit Diagnoses Diagnosis Carcinoma in situ of cervix, unspecified location documented in this encounter Care Teams Pharmacology Associate Relationship Specialty Start Date End Date Trisha Jacobson, MUMTAZ [address] [address] PCP - General 07/29/21 documented as of this encounter
--- OUTSIDE RECORDS SUMMARY | 2024-07-15 21:45 | XMS_ITS | Continuity of Care Document ---
Author Organization [facility] or [facility] Disorders Address [address] [place] [address] Care Team Providers Care Dairy Science Teacher Name Role Phone SeamusDiane Primary Care Physician [phone] [facility]counter [facility] Date(s): 10/31/23 - 10/31/23 [facility] [address] [place] [address] Encounter Diagnosis Obstructive sleep apnea syndrome(Discharge Diagnosis) - 10/17/23 Restless legs syndrome(Discharge Diagnosis) - 10/17/23 Vitamin D deficiency(Discharge Diagnosis) - 10/17/23 Low ferritin(Discharge Diagnosis) - 10/17/23 Low magnesium level(Discharge Diagnosis) - 10/17/23 Iron deficiency(Discharge Diagnosis) - 10/31/23 Discharge Disposition: Home or Self Care Attending Physician: Shauna Kramer MD Allergies, Adverse Reactions, Alerts No Known Allergies Assessment and Plan Extracted from: Title:Sleep Clinic - Office Visit Note Author:Shauna Landa MD Date:10/31/23 1.??Obstructive sleep apnea syndrome??G47.33 2.??Restless legs syndrome??G25.81 3.??Vitamin D deficiency??E55.9 4.??Low ferritin??R79.0,??Low magnesium level??R79.0 6.??Iron deficiency??E61.1 Additional Actions: ORDERED - cholecalciferol, 750 mcg = 3 cap, Oral, every week, # 39 cap, 3 Refill(s), Pharmacy: [facility] ([facility]quired by [facility] #[facility], 163, cm, 10/31/23 9:19:00 EST, Height, 158.76, kg, 10/31/23 9:20:00 EST, Weight Dosing COMPLETED - ferrous sulfate, 325 mg = 1 tab, Oral, Daily, 90 days only, no refills, after that use the MVI with Iron for maintenance, # 90 tab, 0 Refill(s), 10/31/23 9:52:00 EST, Pharmacy: [facility] ([facility]quired [facility] #11, 90 days only, no refills, after that use the MVI with Iron for maintenance ORDERED - ferrous sulfate, 325 mg = 1 tab, Oral, TID, take with 250 to 500mg vit C to increase absorption, # 270 tab, 1 Refill(s), Pharmacy: [facility] #11, 163, cm, 10/31/23 9:19:00 EST, Height, 158.76, kg, 10/31/23 9:20:00 EST, Weight Dosing, take with 250 to 500mg vit C to increase absorption Telehealth Visit conducted via continuous, real-time Video [...] than half the time was spent in [id number] counseling. ? 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 Presents for??sleep follow-up??rls and lab results. ?? Comorbidities??include:?Extremely Severe Obstructive Sleep Apnea and Extremely Severe Nocturnal Hypoxemia, Anxiety, GERD, Depression, RLS and Morbid Obesity BMI 66, IBS with gluten sensitivity ? Clinical Data Reviewed:? [place] Sleepiness Scale:?? 024??(10/31/2023 ??) ?? [place] Sleepiness Scale:?? 11/10??(08/28/2023) ESS - [place] Sleepiness Scale Total: 5 (07/24/22) ESS - [place] Sleepiness Scale Total: 1 (03/27/22) [place] Sleepiness Scale: 3 (07/02/23) [place] Sleepiness Scale: 2/24 (07/19/23) ? 08/30/2023: Mg 1.5, B12 541, T4 1.4, TSH 2.84, Ferritin 9, Vitamin D 46 ?? Machine Download Data:??[employer] Dreamstation Auto BIPAP?? PAP Settings: ?? Auto BIPAP?IMAX 20 KRYSTLE 11 PS 4??CmH2O Date Range: ?09/15/23 - 10/14/23 Days with Usage >=4 hours:?90% Avg Usage per Day Used: ??7hr 11min?? 90th-tile/95th-tile Pressure: ?16.9/12.9 ?? Avg Time in Large Leak Daily?12min 17sec Avg Treatment ??AHI: ??0.6/hr ? Sleep Clinical Timeline:? Due to snoring, witnessed [...] montage. Normal sleep efficiency. Decreased REM sleep (process maintenance technician woke up patient during REM due to concern of very low O2 and onset of ectopic beats) ?? She was given SENA results follow up and started on cpap immediately, with process maintenance technician who did mask fitting after clinic on [...] desaturations including during supine REM sleep. BIPAP 16/70ozZ2D worked well for Supine NREM sleep. BIPAP 15/85ukG0Y worked well for Lateral NREM sleep. 3. [...] PS 4 cm H2O. order sent to [facility] on 01/20/21. ?? 1. Obstructive sleep apnea [...] pillows. 12/03/18: inc to apap 13 to [id number] for pt comfort as she experiences intermittent [...] 20 krystle 11 ps 4cm machine via [facility]. pt waiting to get it in mail. [...] obesity -on consult, BMI 73. enrolling in [facility] [place] at suggestion of her [...] to reduce if she gets loose stools. 5/28/19: she's taking 2 to 4 tabs daily, no side efx, good results 10/21/19: leg cramps better but now on keto and cramps starting back up. will look for electrolytes packet. continue Mg G 500mg 2 tabs BID. 05/03/20: we reviewed all her med bottles together including Mg, turns out even at 2 tabs bid, she's only getting ~50% of IT PROGRAM MANAGER of Mg, will inc to 3 to [...] (10 to 20mg range) 1 tab daily watermaster. ?? 8. Fatigue -??with history of B12 [...] D, Mg,??and B12 for ongoing RLS/worsening sx. ? 10/31/2023: RLS continues to be a problem and she is only about to sleep 4-5 hrs a night, poorly. Her RLS is same, off vs on gabapentin, I think due to her nutritional deficiencies. I suspect will improve after??adequate supplementation.??Ferritin 9 on Aug lab work . Rx sent for Vit D 10,000iu x3 caps (30kiu) qWeekly and start FeSul 325mg BID/TID [id number] + add Vit C 5000mg with the iron. Recommended Dmitri's Restful Legs supplement as rx rls meds side efx not acceptable for her. Off gabapentin completely d/t??brain fog, worsened ADHD,??increased dose of Hydroxzyine. ? Current Mask: DreamWear full face mask, large cushion, medium headgear (this is recalled and she got another mask via DME, waiting for shipment) Masks tried: p10 nasal pillows sm, no chin strap Meds tried: gabapentin (worse ADHD, brain fog, can't focus, poor impulse control) ? Meds Considered: Dopaminergic agonist for RLS (pt has hx of impulse buying/binge shopping) ? Today's Assessment and Plan: August 2023 lab results reviewed. Mg 1.5, B12 541, T4 1.4, TSH 2.84, Ferritin 9, Vitamin D 46.??Pt reportedly has low stomach acid and is on high doses of PPIs, which is likely why she has issues with malabsorption of vitamins ie hypomag, iron deficiency, Vit D, B12. Will add Vit C to help her absorption, advised against consuming milk/dairy at the same time she takes her Vit C. Cautioned about potential side effect of diarrhea. She purchased a Mg gluconate over the counter in a gel cap formula as her pharmacy did not carry a covered brand, so prefers to continue buying it OTC. Her Vit D 4000iu daily is also not covered, so will prescribe alternative covered dose. BiPAP download data reviewed and discussed with the patient. She has excellent compliance and a tx AHI of 0.6/hr on ??Auto BIPAP?IMAX 20 KRYSTLE 11 PS 4??CmH2O. No pressures changes today, pt's MEY is well treated and her sleep quality is more impacted by her uncontrolled RLS. ? Follow up: 3??months, sooner if needed. ?? Remote Scribed by??Chikis Ramos ? Future [...] absorption, # 270 tab, 1 Refill(s), Pharmacy: [facility] ([facility] #11, 163, cm, 10/31/23 9:19:00 EST, Height, [...] DAILY, # 720 tab, 3 Refill(s), Pharmacy: [facility] #[facility], 163, cm, 08/28/23 8:18:00 EST, Height, 167.83, kg, 08/28/23 8:20:00 EST, Weight Dosing Start Date: 08/28/23 Status: Ordered magnesium oxide 400 mg (241.3 mg elemental magnesium) oral tablet See Instructions, Take 1 to 3 tabs by mouth 3 times daily, # 270 tab, 5 Refill(s), Pharmacy: [facility], 163, cm, 08/28/23 8:18:00 EST, Height, 167.83, kg, 08/28/23 8:20:00 EST, Weight Dosing Start Date: 09/13/23 Status: Ordered Multi-Day Plus Minerals oral tablet 1 tab, Oral, Daily, multivitamin with iron (10 to 20mg per tab is fine), # 90 tab, 3 Refill(s), Pharmacy: [facility] #[facility] Start Date: 07/24/22 Stop Date: 07/19/23 [...] BID, # 180 cap, 3 Refill(s), Pharmacy: [facility] #[facility], 163, cm, 08/28/23 8:18:00EST, Height, 167.83, kg, 08/28/23 8:20:00 EST, Weight Dosing Start Date: 08/28/23 Stop Date: 08/22/24 Status: Ordered Vitamin D3 10,000 intl units oral capsule 750 mcg = 3 cap, Oral, every week, # 39 cap, 3 Refill(s), Pharmacy: [facility] #[facility], 163, cm, 10/31/23 9:19:00 EST, Height, [...] recent to oldest [Reference Range]: 1 Weight 158.76 kg (10/31/23 9:19 AM) Weight Measured (lbs) 350.005 lb (10/31/23 9:19 AM) Weight Dosing 158.760 kg (10/31/23 9:19 AM) Height 163 cm (10/31/23 9:19 AM) Height/Length Measured (inches) 64.17 in ch (10/31/23 9:19 AM) BSA Measured 2.68 m2 (10/31/23 9:19 AM) Body Mass Index 59.75 kg/m2 (10/31/23 9:19 AM) Social History Social History Type Response Tobacco Former tobacco user Tobacco Use:. quit 8 years ago per day. Sex Female Progress note * Hernan Nation: PERFORM Event Display: Progress Note - Physician Authored Date: [id number] * Hernan Nation: PERFORM Event Display: [facility] Note - Physician Authored Date: [id number] Physician Outpatient Note * Shauna Kramer MD: PERFORM, MODIFY Event Display: Office Clinic Note Physician Authored Date: [id number] JUAN A SOLITARIO :1985 Age:38 years Sex:Female Visit Date:10/31/2023 Primary Care Physician: Diane Way Chief Complaint rls follow up History of Present Illness She weaned off her gabapentin and is no longer taking it. She increased her dose of Hydroxyzine forsleep. has been working with Brianne for this. Her RLS are still very bad even after taking her medications. She has been taking Mg by mouth. Her PCP wanted to recheck her Mg but the lab orders weren't sent in, so she hasn't had it checked. She believes her iron was recently checked to be borderline low. She is not currently taking iron Review of Systems A 10-point REVIEW OF SYSTEM was obtained and reviewed, includes CONSTITUTIONAL, EYES, NOSE, THROAT,RESPIRATORY, HEART, GASTROINTESTINAL, UROLOGIC, MUSCULOSKELETAL, PSYCHIATRY, SKIN systems. Pertinent symptoms are discussed in history, otherwise negative. Physical Exam Vitals & Measurements HT:??163??cm?? WT:??158.76??kg?? BMI:??59.75?? BSA:??2.68?? General:??well appearing, appearing stated age, no acute distress,??obese??build PSYCHIATRIC: well groomed, fluent speech, good insight, linear thought process,balanced??affect NEUROLOGIC: alert, oriented, symmetric facial expression Clinic Assessment/Plan 1.??Obstructive sleep apnea syndrome??G47.33 2.??Restless legs syndrome??G25.81 3.??Vitamin D deficiency??E55.9 4.??Low ferritin??R79.0,??Low magnesium level??R79.0 6.??Iron deficiency??E61.1 Additional Actions: ORDERED - cholecalciferol, 750 mcg = 3 cap, Oral, every week, # 39 cap, 3 Refill(s), Pharmacy: [facility] ([facility] #[facility], 163, cm, 10/31/23 9:19:00 EST, Height, 158.76, kg, 10/31/23 9:20:00 EST, Weight Dosing COMPLETED - ferrous sulfate, 325 mg = 1 tab, Oral, Daily, 90 days only, no refills, after that use the MVI with Iron for maintenance, # 90 tab, 0 Refill(s), 10/31/23 9:52:00 EST, Pharmacy: [facility] ([facility] #11, 90 days only, no refills, after that use the MVI with Iron for maintenance ORDERED - ferrous sulfate, 325 mg = 1 tab, Oral, TID, take with 250 to 500mg vit C to increase absorption, # 270 tab, 1 Refill(s), Pharmacy: [facility] #[facility], 163, cm, 10/31/23 9:19:00 EST, Height, 158.76, kg, 10/31/23 9:20:00 EST, Weight Dosing, take with 250 to 500mg vit C to increase absorption Telehealth Visit conducted via continuous, real-time Video [...] than half the time was spent in [id number] counseling. ?? 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 ?? Comorbidities??include:?Extremely Severe Obstructive Sleep Apnea and Extremely Severe Nocturnal Hypoxemia, Anxiety, GERD, Depression, RLS and Morbid Obesity BMI 66, IBS with gluten sensitivity ? Clinical Data Reviewed:? [place] Sleepiness Scale:?? 0/24??(10/31/2023) [place] Sleepiness Scale:?? 224??(08/28/2023) ESS - [place] Sleepiness Scale Total: 5 (07/24/22) ESS - [place] Sleepiness Scale Total: 1 (03/27/22) [place] Sleepiness Scale: 3 (07/02/23) [place] Sleepiness Scale: 2/24 (07/19/23) ?? 08/30/2023: Mg 1.5, B12 541, T4 1.4, TSH 2.84, Ferritin 9, Vitamin D 46 ?? Machine Download Data:??[employer] Dreamstation Auto BIPAP?? PAP Settings: ??Auto BIPAP?IMAX 20 KRYSTLE 11 PS 4??CmH2O Date Range: ?09/15/23 - 10/14/23 Days with Usage >=4 hours:?90% Avg Usage per Day Used: ??7hr 11min?? 90th-tile/95th-tile Pressure: ?16.9/12.9 Avg Time in Large Leak Daily?12min 17sec Avg Treatment ??AHI: ??0.6/hr ?? Sleep Clinical Timeline:? Due to snoring, witnessed [...] montage. Normal sleep efficiency. Decreased REM sleep (process maintenance technician woke up patient during REM due to concernof very low O2 and onset of ectopic beats) ?? She was given SENA results follow up and started on cpap immediately, with process maintenance technician who did mask fitting after clinic on [...] desaturations including during supine REM sleep. BIPAP 16/63imX0J worked well for Supine NREM sleep. BIPAP 15/19qtV3S worked well for Lateral NREM sleep. 3. [...] PS 4 cm H2O. order sent to [facility] on 01/20/21. ?? 1. Obstructive sleep apnea [...] pillows. 12/03/18: inc to apap 13 to [id number] for pt comfort as she experiences intermittent [...] 20 krystle 11 ps 4cm machine via [facility]. pt [...] obesity -on consult, BMI 73. enrolling in [facility] [place] program at suggestion ofher PCP [...] 2 tabs bid, she'sonly getting ~50% of IT PROGRAM MANAGER of Mg, will inc to 3 to [...] (10 to 20mg range) 1 tab daily watermaster. ?? 8. Fatigue -??with history of B12 [...] (30kiu) qWeekly and start FeSul 325mg BID/TID [id number] + add Vit C 5000mg with the iron. Recommended Dmitri's Restful Legs supplement as rx rls meds side efx not acceptable for her. Off gabapentin completely d/t??brain fog, worsened ADHD,??increased dose of Hydroxzyine. ?? Current Mask: DreamWear full face mask, large cushion, medium headgear (this is recalled and she got another mask via DME, waiting for shipment) Masks tried: p10 nasal pillows sm, no chin strap Meds tried: gabapentin (worse ADHD, brain fog, can't focus, poor impulse control) Meds Considered: Dopaminergic agonist for RLS (pt has hx of impulse buying/binge shopping) ? Today's Assessment and Plan: August 2023 lab results reviewed. Mg 1.5, B12 541, T4 1.4, TSH 2.84, Ferritin 9, Vitamin D 46.??Pt reportedly has low stomach acid and is on high doses of PPIs, which is likely why she has issues with malabsorption of vitamins ie hypomag, iron deficiency, Vit D, B12. Will add Vit C to help her absorption, advised against consuming milk/dairy at the same time she takes her Vit C. Cautioned aboutpotential side effect of diarrhea. She purchased a Mg gluconate over the counter in a gel cap formula as her pharmacy did not carry a covered brand, so prefers to continue buying it OTC. Her Vit D 4000iu daily is also not covered, so will prescribe alternative covered dose. BiPAP download data reviewed and discussed with the patient. She has excellent compliance and a tx AHI of 0.6/hr on Auto BIPAP?IMAX 20 KRYSTLE 11 PS 4??CmH2O. No pressures changes today, pt's MEY is well treated and her sleep quality is more impacted by her uncontrolled RLS. ?? Follow up: 3??months, sooner if needed. ?? Remote Scribed by??Chikis Ramos ?? Problem [...] (2015)???Tonsillectomy Medications What How Much When Instructions New cholecalciferol (Vitamin D3 10,000 intl units oral capsule) 3 Capsules Oral (given by mouth) Every week Duration: 90 Days Refills: 3 Pickup at [facility] ([facility] New ferrous sulfate (ferrous sulfate 325 mg (65 mg elemental iron) oral tablet) 1 tab Oral (given by mouth) 3 times a day Duration: 90 Days Refills: 1 take with 250 to 500mg vit C to increase absorption ?? Pickup at [facility] Unchanged acetaminophen (Tylenol 8 Hour 650 mg oral tablet, extended release) 2 a day ?? Unchanged albuterol (albuterol 2.5 mg/ 3 mL (0.083%) inhalation solution) 3 Milliliters Nebulized inhalation (inhale using nebulizer) Every 4 hours as needed for wheezing Unchanged Durable Medical Equipment for Prescription (Change DME company) See instructions Current setting Bipap imax 20, krystle 11, PS 4 ?? DME: [facility] ?? Unchanged famotidine (famotidine 40 mg oral tablet) 1 at bedtime ?? Unchanged fluticasone nasal (fluticasone 50 mcg/ [...] by mouth ??3 times daily ?? Unchanged multivitamin (Vitamin B Complex oral [...] 1 Tab at bedtime ?? Pharmacy Information [facility]: [address] [facility] [address] [place] [address] [phone] Allergies No Known Allergies No Known Medication [...] (Tdap) adult/adol 01/05/2015 Recorded Electronically Signed on 10/31/23 01:29 PM Shauna Kramer MD Reviewed by: Shauna Kramer MD Patient Care team information Care Team Personnel Name: Diane Way ALTERATIONS WORKROOM CLERK-C Position: No Access Member Role: Primary Care Physician Address: Address: [address] [place] [address]- Care Team Related Persons Name: EVER SOLITARIO Address: Home [address] [place] [id number] Name: GRAHAM JAMIL
--- OUTSIDE RECORDS SUMMARY | 2024-07-15 21:45 | XMS_ITS | Encounter Summary ---
Author Organization [facility] [place] [address] Care Team Providers Care Deputy Director Of Nursing Name Role Phone Trisha Jacobson [employer] Primary Care Provider + Encounter Details Date Type Department Care Team (Latest Contact Info) Description 01/26/2023 Travel Social History Tobacco Use Types Packs/Day [...] on filedocumented in this encounter Care Teams Deputy Director Of Nursing Relationship Specialty Start Date End Date Trisha Jacobson, MUMTAZ [address] [place] [address] PCP - General 07/29/21 documented as of this encounter
--- OUTSIDE RECORDS SUMMARY | 2024-07-15 21:45 | XMS_ITS | Continuity of Care Document ---
Author Organization [facility] Address [address] [place] [address] Care Team Providers Care Call Center Rn Name Role Phone Lizbeth Rose Primary Care Physician [facility] Date(s): 08/28/23 - 08/28/23 [facility] [address] [place] [address] Encounter Diagnosis Obstructive sleep apnea(Discharge Diagnosis) - 08/28/23 Restless legs(Discharge Diagnosis) - 08/28/23 Hypomagnesemia(Discharge Diagnosis) - 08/28/23 Vitamin D deficiency(Discharge Diagnosis) - 08/28/23 Fatigue(Discharge Diagnosis) - 08/28/23 Psychophysiologic insomnia(Discharge Diagnosis) - 08/28/23 Restless legs syndrome(Discharge Diagnosis) - 08/28/23 Discharge Disposition: Home or Self Care Attending Physician: Shauna Kramer MD Allergies, Adverse Reactions, Alerts No Known Allergies Assessment and Plan Future Appointments Future Scheduled Tests Laboratory* Magnesium [...] maintenance, # 90 tab, 0 Refill(s), Pharmacy: [facility] Start Date: 07/24/22 Status: Ordered fluticasone 50 mcg/inh nasal spray 1 sprays, Nasal - Both Sides, BID Start Date: 06/09/22 Status: Ordered gabapentin 100 mg oral capsule See Instructions, take 3 to 6 capsules PO at night, self titrate to symptoms, # 180 cap, 0 Refill(s), Pharmacy: [facility], 163, cm, 08/28/23 8:18:00 EST, Height, 167.83, kg, 08/28/23 8:20:00 EST, Weight Dosing Start Date: 08/28/23 Status: Ordered l-methylfolate 15 mg oral tablet [...] DAILY, # 720 tab, 3 Refill(s), Pharmacy: [facility], 163, cm, 08/28/23 8:18:00 EST, Height, 167.83, kg, 08/28/23 8:20:00 EST, Weight Dosing Start Date: 08/28/23 Status: Ordered Multi-Day Plus Minerals oral tablet 1 tab, Oral, Daily, multivitamin with iron (10 to 20mg per tab is fine), # 90 tab, 3 Refill(s), Pharmacy: [facility] Start Date: 07/24/22 Stop Date: 07/19/23 [...] BID, # 180 cap, 3 Refill(s), Pharmacy: [facility], 163, cm, 08/28/23 8:18:00EST, Height, 167.83, kg, 08/28/23 8:20:00 EST, Weight Dosing Start Date: 08/28/23 Stop Date: 08/22/24 Status: Ordered Vitamin D3 2000 intl units oral tablet 100 mcg = 2 tab, Oral, Daily, # 180 tab, 3 Refill(s), Pharmacy: [facility], 163, cm, 08/28/23 8:18:00 EST, Height, 167.83, kg, 08/28/23 8:20:00 EST, Weight Dosing Start Date: 08/28/23 Stop Date: 08/22/24 Status: Ordered Vyvanse 40 mg oral capsule [...] recent to oldest [Reference Range]: 1 Weight 167.83 kg (08/28/23 8:18 AM) Weight Measured (lbs) 370.001 lb (08/28/23 8:18 AM) Weight Dosing 167.830 kg (08/28/23 8:18 AM) Height 163 cm (08/28/23 8:18 AM) Height/Length Measured (inches) 64.17 in ch (08/28/23 8:18 AM) BSA Measured 2.76 m2 (08/28/23 8:18 AM) Body Mass Index 63.17 kg/m2 (08/28/23 8:18 AM) Social History Social History Type Response Tobacco Former tobacco user Tobacco Use:. quit 8 years ago per day. Sex Female Progress note * Hernan Nation: PERFORM Event Display: Progress Note - Physician Authored Date: [id number] Physician Outpatient Note * Shauna Kramer MD: PERFORM, MODIFY Event Display: Office Clinic Note Physician Authored Date: [id number] JUAN A SOLITARIO :1985 Age:38 years Sex:Female Visit Date:08/28/2023 Primary Care Physician: Lizbeth Rose MD Chief Complaint rls follow up History of Present Illness She is trying to find a balance between the magnesium and gabapentin, feels like they cancel each other out. She ran out of magnesium recently and has not been feeling well. Nauseated, lightheaded, palpitations, tremors, hot and cold flashes. At first she was taking them together, then tried taking one 2 hr before but was forgetting. ?? She picked up and took the 90 day supply of iron. ?? She hasn't felt anything from the gabapentin. Has taken up to 300mg (100mg 3 capsules). Review of Systems A 10-point REVIEW OF SYSTEM was obtained and reviewed, includes CONSTITUTIONAL, EYES, NOSE, THROAT,RESPIRATORY, HEART, GASTROINTESTINAL, UROLOGIC, MUSCULOSKELETAL, PSYCHIATRY, SKIN systems. Pertinent symptoms are discussed in history, otherwise negative. Physical Exam Vitals & Measurements HT:??163??cm?? WT:??167.83??kg?? BMI:??63.17?? BSA:??2.76?? General:??well appearing, appearing stated age, no acute distress,??obesebuild PSYCHIATRIC: well groomed, fluent speech, good insight, linear thought process, good eye contact,balanced??affect NEUROLOGIC: alert, oriented, symmetric facial expression Clinic Assessment/Plan 1.??Obstructive sleep apnea??G47.33 Actions: COMPLETED - gabapentin, See Instructions, take 1 to 3 capsules PO at night, self titrate to symptoms; ONLY FILL WHEN PT REQUESTS, # 90 cap, 0 Refill(s), 08/28/23 9:14:00 EST, Pharmacy: [facility], 163, cm, 07/19/23 9:45:00 EDT, Height, 165.56, kg, 07/19/23 9:46:00..., take 1 to 3 capsulesPO at night, self titrate to symptoms; ONLY FILL WHEN PT REQUESTS ORDERED - gabapentin, See Instructions, take 3 to 6 capsules PO at night, self titrate to symptoms,# 180 cap, 0 Refill(s), Pharmacy: [facility], 163, cm, 08/28/23 8:18:00 EST, Height, 167.83, kg, 08/28/23 8:20:00 EST, Weight Dosing, take 3 to 6 capsules PO at night, self titrate to symptoms FUTURE - Ferritin, Blood, Routine, 08/28/23, Once, Lab Collect, Obstructive sleep apnea Restless legs Hypomagnesemia Vitamin D deficiency Fatigue, Order for future visit FUTURE - Magnesium Level, Blood, Routine, 08/28/23, Once, Lab Collect, Obstructive sleep apnea Restless legs Hypomagnesemia Vitamin D deficiency Fatigue, Order for future visit FUTURE - TSH w/ Rflx to Free T4, Blood, Routine, 08/28/23, Once, Lab Collect, Obstructive sleep apnea Restless legs Hypomagnesemia Vitamin D deficiency Fatigue, Order for future visit FUTURE - Vitamin B12 Level, Blood, Routine, 08/28/23, Once, Lab Collect, Obstructive sleep apnea Restless legs Hypomagnesemia Vitamin D deficiency Fatigue, Order for future visit FUTURE - Vitamin D, 25-OH Total [place], Blood, Routine, 08/28/23, Once, Lab Collect, Obstructive sleepapnea Restless legs Hypomagnesemia Vitamin D deficiency Fatigue, Order for future visit ?? 2.??Restless legs??G25.81,?? Restless legs syndrome??G25.81 Actions: COMPLETED - gabapentin, See Instructions, take 1 to 3 capsules PO at night, self titrate to symptoms; ONLY FILL WHEN PT REQUESTS, # 90 cap, 0 Refill(s), 08/28/23 9:14:00 EST, Pharmacy: [facility], 163, cm, 07/19/23 9:45:00 EDT, Height, 165.56, kg, 07/19/23 9:46:00..., take 1 to 3 capsulesPO at night, self titrate to symptoms; ONLY FILL WHEN PT REQUESTS ORDERED - gabapentin, See Instructions, take 3 to 6 capsules PO at night, self titrate to symptoms,# 180 cap, 0 Refill(s), Pharmacy: [facility], 163, cm, 08/28/23 8:18:00 EST, Height, 167.83, kg, 08/28/23 8:20:00 EST, Weight Dosing, take 3 to 6 capsules PO at night, self titrate to symptoms FUTURE - Ferritin, Blood, Routine, 08/28/23, Once, Lab Collect, Obstructive sleep apnea Restless legs Hypomagnesemia Vitamin D deficiency Fatigue, Order for future visit FUTURE - Magnesium Level, Blood, Routine, 08/28/23, Once, Lab Collect, Obstructive sleep apnea Restless legs Hypomagnesemia Vitamin D deficiency Fatigue, Order for future visit FUTURE - TSH w/ Rflx to Free T4, Blood, Routine, 08/28/23, Once, Lab Collect, Obstructive sleep apnea Restless legs Hypomagnesemia Vitamin D deficiency Fatigue, Order for future visit FUTURE - Vitamin B12 Level, Blood, Routine, 08/28/23, Once, Lab Collect, Obstructive sleep apnea Restless legs Hypomagnesemia Vitamin D deficiency Fatigue, Order for future visit FUTURE - Vitamin D, 25-OH Total [place], Blood, Routine, 08/28/23, Once, Lab Collect, Obstructive sleepapnea Restless legs Hypomagnesemia Vitamin D deficiency Fatigue, Order for future visit ?? 3.??Hypomagnesemia??E83.42 Actions: FUTURE - Ferritin, Blood, Routine, 08/28/23, Once, Lab Collect, Obstructive sleep apnea Restless legs Hypomagnesemia Vitamin D deficiency Fatigue, Order for future visit FUTURE - Magnesium Level, Blood, Routine, 08/28/23, Once, Lab Collect, Obstructive sleep apnea Restless legs Hypomagnesemia Vitamin D deficiency Fatigue, Order for future visit FUTURE - TSH w/ Rflx to Free T4, Blood, Routine, 08/28/23, Once, Lab Collect, Obstructive sleep apnea Restless legs Hypomagnesemia Vitamin D deficiency Fatigue, Order for future visit FUTURE - Vitamin B12 Level, Blood, Routine, 08/28/23, Once, Lab Collect, Obstructive sleep apnea Restless legs Hypomagnesemia Vitamin D deficiency Fatigue, Order for future visit FUTURE - Vitamin D, 25-OH Total [place], Blood, Routine, 08/28/23, Once, Lab Collect, Obstructive sleepapnea Restless legs Hypomagnesemia Vitamin D deficiency Fatigue, Order for future visit ?? 4.??Vitamin D deficiency??E55.9 Actions: FUTURE - Ferritin, Blood, Routine, 08/28/23, Once, Lab Collect, Obstructive sleep apnea Restless legs Hypomagnesemia Vitamin D deficiency Fatigue, Order for future visit FUTURE - Magnesium Level, Blood, Routine, 08/28/23, Once, Lab Collect, Obstructive sleep apnea Restless legs Hypomagnesemia Vitamin D deficiency Fatigue, Order for future visit FUTURE - TSH w/ Rflx to Free T4, Blood, Routine, 08/28/23, Once, Lab Collect, Obstructive sleep apnea Restless legs Hypomagnesemia Vitamin D deficiency Fatigue, Order for future visit FUTURE - Vitamin B12 Level, Blood, Routine, 08/28/23, Once, Lab Collect, Obstructive sleep apnea Restless legs Hypomagnesemia Vitamin D deficiency Fatigue, Order for future visit FUTURE - Vitamin D, 25-OH Total [place], Blood, Routine, 08/28/23, Once, Lab Collect, Obstructive sleepapnea Restless legs Hypomagnesemia Vitamin D deficiency Fatigue, Order for future visit ?? 5.??Fatigue??R53.83 Actions: FUTURE - Ferritin, Blood, Routine, 08/28/23, Once, Lab Collect, Obstructive sleep apnea Restless legs Hypomagnesemia Vitamin D deficiency Fatigue, Order for future visit FUTURE - Magnesium Level, Blood, Routine, 08/28/23, Once, Lab Collect, Obstructive sleep apnea Restless legs Hypomagnesemia Vitamin D deficiency Fatigue, Order for future visit FUTURE - TSH w/ Rflx to Free T4, Blood, Routine, 08/28/23, Once, Lab Collect, Obstructive sleep apnea Restless legs Hypomagnesemia Vitamin D deficiency Fatigue, Order for future visit FUTURE - Vitamin B12 Level, Blood, Routine, 08/28/23, Once, Lab Collect, Obstructive sleep apnea Restless legs Hypomagnesemia Vitamin D deficiency Fatigue, Order for future visit FUTURE - Vitamin D, 25-OH Total [place], Blood, Routine, 08/28/23, Once, Lab Collect, Obstructive sleepapnea Restless legs Hypomagnesemia Vitamin D deficiency Fatigue, Order for future visit ?? Psychophysiologic insomnia??F51.04 Actions: COMPLETED - gabapentin, See Instructions, take 1 to 3 capsules PO at night, self titrate to symptoms; ONLY FILL WHEN PT REQUESTS, # 90 cap, 0 Refill(s), 08/28/23 9:14:00 EST, Pharmacy: [facility], 163, cm, 07/19/23 9:45:00 EDT, Height, 165.56, kg, 07/19/23 9:46:00..., take 1 to 3 capsulesPO at night, self titrate to symptoms; ONLY FILL WHEN PT REQUESTS ORDERED - gabapentin, See Instructions, take 3 to 6 capsules PO at night, self titrate to symptoms,# 180 cap, 0 Refill(s), Pharmacy: [facility], 163, cm, 08/28/23 8:18:00 EST, Height, 167.83, kg, 08/28/23 8:20:00 EST, Weight Dosing, take 3 to 6 capsules PO at night, self titrate to symptoms ?? Additional Actions: COMPLETED - cholecalciferol, 100 mcg = 2 tab, Oral, Daily, # 180 tab, 3 Refill(s), 08/28/23 8:54:00EST, Pharmacy: [facility] ORDERED - cholecalciferol, 100 mcg = 2 tab, Oral, Daily, # 180 tab, 3 Refill(s), Pharmacy: [facility], 163, cm, 08/28/23 8:18:00 EST, Height, 167.83, kg, 08/28/23 8:20:00 EST, Weight Dosing COMPLETED - magnesium gluconate, See Instructions, Mag-G 27 mg magnesium (500mg); TAKE 3 TO 4 TABLETS BY MOUTH TWICE DAILY, # 720 tab, 3 Refill(s), 08/28/23 8:53:00 EST, Pharmacy: [facility], Mag-G 27 mg magnesium (500mg); TAKE 3 TO 4 TABLETS BY MOUTH TWICE DAILY ORDERED - magnesium gluconate, See Instructions, Mag Gluconate 27 mg magnesium (500mg); TAKE 3 TO 4TABLETS BY MOUTH TWICE DAILY, # 720 tab, 3 Refill(s), Pharmacy: [facility], 163, cm, 08/28/23 8:18:00 EST, Height, 167.83, kg, 08/28/23 8:20:00 EST, Weight Dosing, Mag Gluconate 27 mg magnesium (500mg); TAKE 3 TO 4 TABLETS BY MOUTH TWICE DAILY COMPLETED - multivitamin, 1 cap, Oral, BID, X 90 days, # 180 cap, 3 Refill(s), 07/19/23 12:01:00 EDT, Pharmacy: [facility] ORDERED - multivitamin, 1 cap, Oral, BID, # 180 cap, 3 Refill(s), Pharmacy: [facility], 163, cm, 08/28/23 8:18:00 EST, Height, 167.83, kg, 08/28/23 8:20:00 EST, Weight Dosing Telehealth Visit conducted via continuous, real-time Video [...] will be billed to patient's health insurance. I provided greater than??30??minutes in the care of this patient including chart review and documentation, more than half the time was spent in [id number] counseling. ?? 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 ?? Comorbidities??include: ?Extremely Severe Obstructive Sleep Apnea and Extremely Severe Nocturnal Hypoxemia, Anxiety, GERD, Depression, RLS and Morbid Obesity BMI 66, IBS with gluten sensitivity ? Clinical Data Reviewed:? [place] Sleepiness Scale:?? 2??(08/28/2023) ESS - [place] Sleepiness Scale Total: 5 (07/24/22) ESS - [place] Sleepiness Scale Total: 1 (03/27/22) [place] Sleepiness Scale: 3 (07/02/23) [place] Sleepiness Scale: 2/24 (07/19/23) ?? Machine Download Data:??[employer]ics Dreamstation Auto BIPAP?? PAP Settings: ??Auto BIPAP? CmH2O Date Range: ?07/28/23 - 08/26/23 Days with Usage >=4 hours: ??93.3% Avg Usage per Day Used: ??7hr 56min Mean/Median Pressure: ?16.8/12.8 Avg Time in Large Leak Daily?2min 46s Avg Treatment ??AHI: ??0.4/hr ? Sleep Clinical Timeline:?? Due to snoring, witnessed [...] montage. Normal sleep efficiency. Decreased REM sleep (fleet technician woke up patient during REM due to concernof very low O2 and onset of ectopic beats) ?? She was given [facility] results follow up and started on cpap immediately, with fleet technician who did mask fitting after clinic [...] desaturations including during supine REM sleep. BIPAP 16/39epO5I worked well for Supine NREM sleep. BIPAP 15/07tnN4C worked well for Lateral NREM sleep. 3. [...] PS 4 cm H2O. order sent to [facility] on 01/20/21. ?? 1. Obstructive [...] pillows. 12/03/18: inc to apap 13 to [id number] for pt comfort as she experiences intermittent [...] obesity -on consult, BMI 73. en[place] [facility] [place] at suggestion ofher PCP [...] 2 tabs bid, she'sonly getting ~50% of GRADING CLERK of Mg, will inc to 3 to [...] (10 to 20mg range) 1 tab daily longterm. ?? 8. Fatigue -??with history of B12 [...] pt plans to discuss this option with Brainne Melgargretchen to make sure this does not disrupt her current med regimen. Recommend starting gabapentin 100 mg, increase by 1 tab every 5 days as needed, up to max 300 mg. At next visit if no side efx butnot enough effect can consider going further up to 600mg by 100mg increments as tolerated. ?? 07/19/2023: Recommend restarting hydroxyzine due to anxiety, insomnia, and because discontinuingdid not help with RLS. Cont the Gabapentin [...] 30 minutes+ which sound too long for sleepparalysis, asked her to reach out to her [...] Mg,??and B12 for ongoing RLS/worsening sx. ?? Current Mask: DreamWear full face mask, large cushion, medium headgear (this is recalled and shegot another mask via [facility], waiting for shipment) Masks tried: p10 nasal pillows sm, no chin strap ? Today's Assessment and Plan: SEE 08/28/23 ENTRY ABOVE. Pt taking large quantity of Doctor's best Mg daily which is cost prohibitive, will switch to rx version to help reduce pt's financial cost. She has tried up to 300mg of gabapentin and is finding her legs are still very painful, almost punching her , has the urge to stretch them out. She takes her meds around 7PM but the symptomscontinue after this. Since running out of her Mg, her leg symptoms are much worse. Discussed possibility that her sx are not indicative of RLS at this point if gabapentin is ineffective, possibility it is related to nutritional/iron deficiency or other medication related side efx. If increase in gabapentin continues to be ineffective, discussed switching to ropinirole as a next line possibility. She does self-report a hx of shopping impulsiveness related to her bipolar disorder. ?? Lab form faxed to [facility]. ?? Follow up: sooner if needed. ?? Remote Scribed by??[employer] [...] delivery (2015)???Tonsillectomy Medications What How Much When Why Instructions New cholecalciferol (Vitamin D3 2000 intl units oral tablet) 2 tab Oral (given by mouth) Every day Duration: 90 Days Refills: 3 Pickup at [facility] New magnesium gluconate (Mag-G 500 mg oral tablet) See instructions Refills: 3 Mag Gluconate 27 mg magnesium (500mg); TAKE 3 TO 4 TABLETS BY MOUTH TWICE DAILY ?? Pickup at [facility] New multivitamin (Vitamin B Complex oral capsule) 1 Capsules Oral (given by mouth) 2 times a day Duration: 90 Days Refills: 3 Pickup at [facility] Unchanged acetaminophen (Tylenol 8 Hour 650 [...] (breathe in) 2 times a day Unchanged gabapentin (gabapentin 100 mg oral capsule) See instructions Obstructive sleep apnea Psychophysiologic insomnia Restless legs syndrome take 1 to 3 capsules PO at night, self titrate to symptoms; ONLY FILL WHEN PT REQUESTS ?? Unchanged l-methylfolate (l-methylfolate 15 mg oral tablet) [...] Oral (given by mouth) Every day Unchanged multivitamin with minerals (Multi-Day Plus Minerals [...] 1 Tab at bedtime ?? Pharmacy Information [facility]: [address] [facility] [address], [place] [address] [phone] Allergies No Known Allergies No Known Medication [...] (Tdap) adult/adol 01/05/2015 Recorded Electronically Signed on 08/28/23 07:44 PM Shauna Kramer MD Reviewed by: Shauna Kramer MD Patient Care team information Care Team Personnel Name: Lizbeth Rose MD Position: No Access Member Role: Primary Care Physician Address: Address: [place] [address]- Care Team Related Persons Name: EVER SOLITARIO Address: Home [address] [place] [address] Name: GRAHAM JAMIL
--- OUTSIDE RECORDS SUMMARY | 2024-07-15 21:45 | XMS_ITS | Encounter Summary ---
Author Organization [facility], Located Within [facility] [place] [address] Care Team Providers Care Hospital Admitting Clerk Name Role Phone Trisha Jacobson APRN Primary Care Provider + Reason for Visit * Auth/Cert (Routine) Specialty Diagnoses / Procedures Referred By Contjarad t Referred To Contact Diagnoses Abnormal uterine and vaginal bleeding, unspecified History of loop electrical excision procedure (LEEP) AUB and difficult office exam, needs endometrial sampling and pap in OR Procedures PRO HYSTEROSCOPY, W/ENDO BX CHG CYTOPATH,CERV/VAG,AUTO THIN LAYER,INTERP HYSTEROSCOPY, SURG W/ENDOMETRIAL SAMPLING, POLYPECTOMY (WRVU 4.17) PAP SMEAR UNDER ANESTHESIA (WRVU *) Jennifer Blair MD [facility] [place] [address] [facility] Referral ID Status Reason Start Date Expiration Date Visits Re quested Visits Authorized [id number] 1 1 Encounter Details Date Type Department Care Team (Latest Contact Info) Description 02/21/2023 8:17 AM EDT - 02/21/2023 2:24 PM EDT Hospital En[place] [phone] Jennifer Blair MD [facility] [address] Abnormal uterine bleeding (AUB); History of loop electrical excision procedure (LEEP) Discharge Disposition: Home Social History Tobacco Use Types Packs/Day Years [...] Sign Reading Time Taken Comments Blood Pressure 123/78 02/21/2023 2:00 PM EDT Pulse 91 02/21/2023 2:00 PM EDT Temperature 36.7 ??C (98.1 ??F) 02/21/2023 2:15 PM ED T Respiratory Rate 18 02/21/2023 2:00 PM EDT Oxygen Saturation 100% 02/21/2023 2:00 PM EDT Inhaled Oxygen Concentration - - [...] by mouth daily. Lavender Oil Oil by [facility].(Non-Drug; Combo Route) route. LORazepam (Ativan) 1 mg [...] Sylvester MD - 02/21/2023 9:06 AM EDT Cigarette Making Examiner Inpatient Admission Interval Note I have reviewed [...] iron deficiency anemia. She was last seen [id number] for a similar concern. EMB done 06/11/2020 [...] Anticipating same day surgery. Preferred pharmacy is [facility] in [place] O: BP (!) 154/97 (BP Location (NBP): [...] I can refer her for discussion with Chief Crew Scheduler Oncology as if she is a candidate for hysterectomy it would need to be robotic. It may be that a weight loss requirement would be necessary for surgical safety and feasibility but she is open to the consultative discussion with Chief Crew Scheduler Oncology. Jennifer Blair MD documented in this encounter Miscellaneous Notes * Brief Op Note - Jennifer Blair MD - 02/21/2023 12:31 PM EDT Brief Operative Note Patient Name: Cecilia Connelly : [id number] MR#: [id number] Case Date: 02/21/2023 Surgeon: Surgeon(s) and Role: [...] from the original note were not included. [facility] [place] Note Patient Name: Cecilia Connelly : [id number] MR#: [id number] Case Date: 02/21/2023 Surgeon: Surgeon(s) and Role: [...] the dorsal supine lithotomy position in [facility] stirpsin a neurologically neutral position. Exam under anesthesia [...] Hibiclens. The cervix was dilated to 15 [place] with Cardenas dilators. The endo biopsy pipelle [...] anterior cervix). She may benefit from a Chief Crew Scheduler Onc consult to discuss BMI at which [...] (LEEP) HPV Routine 02/21/2023 11:54 AM EDT GAS PLUMBING INSPECTOR CYTOLOGY INTERPRETATION Routine 02/21/2023 11:54 AM EDT GAS PLUMBING INSPECTOR CYTOLOGY FINAL REPORT Routine 02/21/2023 11:54 AM EDT CYTOPATHOLOGY GYNECOLOGICAL Routine 02/21/2023 11:54 AM EDT SPECIMEN TO PATHOLOGY Routine 02/21/2023 11:38 AM EDT SURGICAL PATHOLOGY REPORT Routine 02/21/2023 11:15 AM EDT SPECIMEN TO PATHOLOGY Routine 02/21/2023 11:15 AM EDT Endocervical Curettage ([id number]) 02/21/2023 10:39 AM EDT Abnormal uterine bleeding (AUB) History of loop electrical excision procedure (LEEP) CHG CYTOPATH,CERV/VAG,AUTO THIN LAYER,INTERP 02/21/2023 10:39 AM EDT Abnormal uterine bleeding (AUB) History of loop electrical excision procedure (LEEP) Hysteroscopy, W/Endo Bx ([id number]) 02/21/2023 10:39 AM EDT Abnormal uterine bleeding (AUB) History of loop electrical excision procedure (LEEP) POCT URINE Routine 02/21/2023 8:57 AM EDT HYSTEROSCOPY, SURG W/ENDOMETRIAL SAMPLING, POLYPECTOMY Routine 02/21/2023 Abnormal uterine bleeding (AUB) History of loop electrical excision procedure (LEEP) documented in this encounter Results * GAS PLUMBING INSPECTOR Cytology Interpretation (02/21/2023 11:54 AM EDT) Chief Crew Scheduler Cytology Interpretation [facility] Comment:Chief Crew Scheduler Cytology Final R eport Endocervical Component Not Present [facility] AP Specimen 02/21/2023 11:5 4 AM EDT 03/09/2023 9:35 AM EDT Jennifer Blair MD PATHOLOGY/CYTOLOGY O RDERABLES [facility] [place] [address] * Chief Crew Scheduler Cytology Final Report (02/21/2023 11:54 AM EDT) Chief Crew Scheduler Cytology Final Report [id number] ? Location: [facility]; A The signing pathologist has (i) examined the relevant preparation(s) for the specimen(s) and (ii) rendered or confirmed the diagnosis(es). . ? Chief Crew Scheduler Final DIAGNOSIS Normal Negative for intraepithelial lesion or malignancy (NILM). For consensus guidelines for the management of cervical cancer screening test results, please see: ?? http://www.asccp.or g . Electronically signed by: ?Rajiv CASTORENA(ASCP), Giovana Camara Verified: ??03/09/2023 9:35 ?? Underwater Trapper Performed at: ??-[facility] Dept. [place]ology, [place] [address] Stage Rigger: Noel Chinchilla MD, AP, ??IA Certificate: [id number] HPV RESULTS HPV16 (Result) ?Negative HPV18 (Result) [...] [employer] (CG[employer]) at [facility]. ? - Jesu Mott, PhD, [facility], Director-CGAT STATEMENT OF ADEQUACY Specimen submitted is [...] previous abnormal Pap . CLINICAL INFORMATION Prior GAS PLUMBING INSPECTOR Therapy: ? Other (comment) Hist of HPV Vaccine: ? Yes ICD Diagnosis: ? Z12.4 Encounter for screening for malignant neoplasm of cervix Clinical Data, Significant Therapy and Clinical Impression ?? : ?history of leep for cin3 This Pap Test has been evaluated with the assistance of the Harry'sPrep Pap Test Imaging System. Note: The Pap test is a screening test for cervical cancer with an inherent false-negative rate dependent upon several variables. For further information please contact the [facility]. Reference: Bc SNOW. Supervisor Beam Department of Pap Smear Results. In: Lyudmila BS, Nathan LU, ed. The Pap Smear. [place]: Brady, 2002: 71-77. [facility] 02/21/2023 11:5 4 AM EDT Jennifer Blair MD PATHOLOGY/CYTOLOGY O RDERABLES [facility] [place] [address] * HPV (02/21/2023 11:54 AM EDT) HPV16 NEGATIVE NEGATIVE [facility] HPV 18 NEGATIVE NEGATIVE [facility] HPV Other HR NEGATIVE NEGATIVE [facility] HPV Interpretation See Comment [facility] Comment: NEGATIVE for high-risk HPV *. [...] MD PATHOLOGY/CYTOLOGY O CHEO Performing Organization Address [facility]/[place] [address] * Cytopathology Gynecological (02/21/2023 11:54 AM EDT) AP Specimen 02/21/2023 11:5 4 AM EDT 02/21/2023 11:54 AM EDT Narrative [facility] - 02/21/2023 11:54 AM EDT Specimen requisition ordered. ??Separate Pathology report to follow Jennifer Blair MD PATHOLOGY/CYTOLOGY O CHEO Performing Organization Address [facility]/[place] [address] * Specimen to Pathology (02/21/2023 11:38 AM EDT) AP Specimen 02/21/2023 11:3 8 AM EDT 02/21/2023 11:38 AM EDT Narrative [facility] - 02/21/2023 11:38 AM EDT Specimen requisition ordered. ??Separate Pathology report to follow Jennifer Blair MD PATHOLOGY/CYTOLOGY O CHEO [facility] [place] [address] * Surgical Pathology Report (02/21/2023 11:15 AM EDT) Final Diagnosis [id number] ? Location: [facility]; The signing pathologist has (i) examined the [...] DO Verified: ??02/26/2023 11:04 ??Pathologist Performed at: ??-[facility] Dept. of [place]ology, [place] [address] Stage Rigger: Noel Chinchilla MD, AP, ??IA Certificate: [id number] ?Surgical Pathology DIAGNOSIS A - Endocervical curettings: - Fragments of benign endocervical mucosa intermixed with cervical ??mucus and blood clot. - Atypical squamous metaplasia associated with acute and chronic ??cervicitis. - No definite evidence of dysplasia or HPV effect. B - Endometrial ??curettings : - Fragments of benign secretory endometrium (see Discussion). - No evidence of malignancy or endometritis. Electronically signed by: ?Mary Jaen Sheridan DO Verified: ??02/26/2023 10:13 ??Pathologist Performed at: ??-[facility] Dept. of [place]ology, [place] [address] Stage Rigger: Noel Chinchilla MD, FCAP, ??CLIA Certificate: [id number] SPECIMEN(S) SUBMITTED A - Endocervical ??curettings , [...] labeled B1-B2. ??nrl 02/26/2023 11:04 AM EDT [facility] ENDOMETRIAL STRUCTURE / Unknown 02/21/2023 11:15 AM EDT 02/21/2023 11:15 AM EDT ENDOMETRIAL STRUCTURE / Unknown 02/21/2023 11:15 AM EDT 02/21/2023 11:15 AM EDT Jennifer Blair MD PATHOLOGY/CYTOLOGY O RDERABLES [facility] [address] [place] [address] * Specimen to Pathology (02/21/2023 11:15 AM EDT) AP Specimen 02/21/2023 11:1 5 AM EDT 02/21/2023 11:15 AM EDT Narrative [facility] - 02/21/2023 11:15 AM EDT Specimen requisition ordered. ??Separate Pathology report to follow Jennifer Blair MD PATHOLOGY/CYTOLOGY O RDERABLES [facility] [place] [address] * POCT urine (02/21/2023 8:57 AM EDT) POC Urine HCG Negative POC Control Internal Controls Acceptable 02/21/2023 8:57 AM EDT Jennifer Blair MD POINT OF CARE TEST O RDERABLES * HYSTEROSCOPY, SURG W/ENDOMETRIAL SAMPLING, POLYPECTOMY (02/21/2023) Jennifer Blair MD GENERAL SURGICAL ORD [facility] documented in this encounter Visit Diagnoses Diagnosis [...] Routine documented in this encounter Care Teams Hospital Admitting Clerk Relationship Specialty Start Date End Date Trisha Jacobson, DIAMOND MERCHANT [address] [place] [address] PCP - General 07/29/21 documented as of this encounter
--- OUTSIDE RECORDS SUMMARY | 2024-07-15 21:45 | XMS_ITS | Encounter Summary ---
Author Organization [facility] [address] Care Team Providers Care Child And Adolescent Psychiatrist Name Role Phone Trisha Jacobson APRN Primary Care Provider + Encounter Details Date Type Department Care Team (Late st Contact Info) Description 02/01/2023 Telephone Obstetrics [place] [phone] Rica Chawla Social History Tobacco Use Types [...] on filedocumented in this encounter Care Teams Child And Adolescent Psychiatrist Relationship Specialty Start Date End Date Trisha Jacobson APRN [address] [place] [address] PCP - General 07/29/21 documented as of this encounter
--- OUTSIDE RECORDS SUMMARY | 2024-07-15 21:45 | XMS_ITS | Encounter Summary ---
Author Organization [facility] Address [facility] [place] [address] Care Team Providers Care Value Stream Leader Name Role Phone Trisha Jacobson APRN Primary Care Provider + Encounter Details Date Type Department Care Team ([facility] st Contact Info) Description 02/04/2023 Orders Only Obstetrics [place] [phone] Jennifer Blair MD [facility] OBSTETRICS [place] [address] Abnormal uterine bleeding (AUB); History of loop electrical excision procedure (LEEP) Social History Tobacco Use Types Packs/Day Years [...] on file documented as of this encounter Results * SURGICAL CASE REQUEST: HYSTEROSCOPY, SURG W/ENDOMETRIAL SAMPLING, POLYPECTOMY (WRVU 4.17) (02/21/2023) Jennifer Blair MD GENERAL SURGICAL ORD ERABLES documented in this encounter Visit Diagnoses Diagnosis Abnormal uterine bleeding (AUB) History of loop electrical excision procedure (LEEP) documented in this encounter Care Teams Value Stream Leader Relationship Specialty Start Date End Date Trisha Jacobson APRN [address] [place] [address] PCP - General 07/29/21 documented as of this encounter
--- OUTSIDE RECORDS SUMMARY | 2024-07-15 21:45 | XMS_ITS | Encounter Summary ---
Author Organization [facility] Address [facility] [place] [address] Care Team Providers Care Housekeeper Manager Name Role Phone Trisha Jacobson APRN Primary Care Provider + Encounter Details Date Type Department Care Team (Late st Contact Info) Description 02/21/2023 Interpretation Only Radiology [address] [facility] [place] [phone] Unknown None Social History Tobacco Use Types Packs/Day Years [...] Procedure Name Priority Date/Time Associated Diagnosis Comments DH OR ENDOSCOPY Routine 02/21/2023 documented in this encounter Results * DH OR Endoscopy (02/21/2023) Anatomical Region Laterality Modality Other 02/21/2023 Narrative 02/21/2023 12:00 AM EDT Photographs - Images Procedure Note Unknown - 02/21/2023 Photographs - Images Unknown EA IMAGES documented in this encounter Visit Diagnoses Not on filedocumented in this encounter Care Teams Housekeeper Manager Relationship Specialty Start Date End Date Trisha Jacobson, SEAFOOD PACKER [address] [place] [address] PCP - General 07/29/21 documented as of this encounter
--- OUTSIDE RECORDS SUMMARY | 2024-07-15 21:45 | XMS_ITS | Encounter Summary ---
Author Organization [facility] Address [facility] [place] [address] Care Team Providers Care Deputy Chief Sheriff Name Role Phone Trisha Jacobson APRN Primary Care Provider + Encounter Details Date Type Department Care Team (Latest Contact Info) Description 04/02/2023 Travel Social History Tobacco Use Types Packs/Day [...] filedocumented in this encounter Care Teams Deputy Chief Sheriff Relationship Specialty Start Date End Date Trisha Jacobson APRN [address] [place] [address] PCP - General 07/29/21 documented as of this encounter
--- OUTSIDE RECORDS SUMMARY | 2024-07-15 21:45 | XMS_ITS | Encounter Summary ---
Author Organization [facility] Address [facility] [place] [address] Care Team Providers Care Asset Protection Representative Name Role Phone Trisha Jacobson APRN Primary Care Provider + Encounter Details Date Type Department Care Team (Latest Contact Info) Description 02/28/2023 Travel Social History Tobacco Use Types Packs/Day [...] on filedocumented in this encounter Care Teams Asset Protection Representative Relationship Specialty Start Date End Date Trisha Jacobson APRN [address] [place] [address] PCP - General 07/29/21 documented as of this encounter
--- OUTSIDE RECORDS SUMMARY | 2024-07-15 21:45 | XMS_ITS | Encounter Summary ---
Author Organization [facility] Address [facility] [place] [address] Care Team Providers Care Hi Lift Operator Name Role Phone KavonDanyelbraden Camara APRN Primary Care Provider + Reason for Visit * Reason Comments Follow-up Encounter Details Date Type Department Care Team ([facility] Contact Info) Description 01/11/2023 2:40 PM EDT Office Visit Obstetrics [place] [address] Yvonne Sylvester MD [facility] OBSTETRICS & [place] [address] Abnormal uterine bleeding (AUB) Social History Tobacco [...] Sign Reading Time Taken Comments Blood Pressure 148/109 01/11/2023 2:28 PM EDT Pulse 98 01/11/2023 2:28 PM EDT Temperature 36.3 ??C (97.4 ??F) 01/11/2023 2:28 PM ED T Respiratory Rate - - Oxygen Saturation 100% 01/11/2023 2:28 PM EDT Inhaled Oxygen Concentration - - Weight 174.6 kg (385 lb) 01/11/2023 2:28 PM EDT Height - - Body Mass Index 66.09 09/15/2021 1:15 PM EST documented in this encounter Progress Notes * Yvonne Sylvester MD - 01/11/2023 2:40 PM EDT Gynecology Clinic Visit Chief complaint: AUB Patient Active Problem List Diagnosis ??? BMI 60.0-69.9, adult ??? CAROLEE III (cervical intraepithelial neoplasia III) Overview Note: COTEST and ECC ~03/2021 (I.e. 6 months after LEEP) (RHE) 08/2021 ECC and pap neg, NILM, neg HR HPV respectively Cotest one year 08/2022 or 09/2022 HPI: Juan A Connelly is a 37 y.o. premenopausal female female with PMhx notable for CAROLEE III s/p LEEP in 2020, HTN, pre-diabetes, morbid obesity, MEY, GERD, PTSD, insomnia, anxiety/depression, chronic low back pain and iron deficiency anemia presenting with with the concern of abnormaluterine bleeding. She was seen in the clinic in 2019 for an AUB work up, EMB on 06/11/2020 showed benign tissue and TVUS in 2019 showed normal appearing anteverted uterus, with possible right IUD arm impeded into the endometrium. IUD was removed in 09/2020. She reports that for as long as she rememebrs she always had heavy periods. That have been very bothersome and interfering with her ability to live normally. It has been staining her sheets when she sleeps she has to wear adult diapers to control her bleeding. She is not currently on any type [...] tubal ligation following 2016 delivery for contraception. She reports that her periods have generally been irregular occurring every 2-3 months with inter-menstural spotting in between. But reports that since her LEEP in Sep 2020 her periods have been regular coming about every 30 days lasting for about 7 days and very heavy. She denies lightheadedness or dizziness. She has a PCP at [facility] that she follows up, She recently had lab work (12/27) in [facility]: Hg 13.9 (results showed on patient's phone). TSH: 2.67. She voices that she is interested a hysterectomy to resolve her heavy bleeding. Pap history: 11/2022: Unsatisfactory, HRHPV - 08/2021: NILM/HPV neg, benign ECC 07/2021: pap unsat/HPV neg, benign ECC 09/22/20 LEEP HSIL/CAROLEE III ?? Completed HPV vaccine series She expressed that pelvic exams are very uncomfortable and painful in the past. Past Medical History: Diagnosis Date ??? Anemia [...] 3.67) performed by Jennifer Blair MD at [facility] MAIN OR ??? PRO REMOVE INTRAUTERINE DEVICE N/A 09/22/2020 (MSURG) REMOVAL IUD, VAGINAL APPROACH (WRVU 1.27) performed by Jennifer Blair MD at [facility] MAIN OR ??? TONSILLECTOMY ??? TUBAL LIGATION 2016 salpingectomy ??? TYMPANOSTOMY TUBE PLACEMENT Family History Problem Relation Age of Onset ??? Ovarian Cancer Mother 25 Start of ovarian cancer ??? Bladder Cancer Maternal Grandfather ??? Breast Cancer Other ??? Uterine Cancer Neg Hx ??? Colorectal Cancer Neg Hx ??? Pancreatic Cancer Neg Hx ??? Stomach Cancer Neg Hx Social History Socioeconomic History ??? Marital status: Spouse name: Not on file ??? Number of children: Not on file ??? Years of education: Not on file ??? Highest education level: Not on file Occupational History ??? Not on file Tobacco Use ??? Smoking status: Former ??? Smokeless tobacco: Never Vaping Use ??? Vaping Use: Never used Substance and Sexual Activity ??? Alcohol use: Not Currently ??? Drug use: Never ??? Sexual activity: Not on file Other Topics Concern ??? Not on file Social History Narrative ??? Not on file Social Determinants of Health Financial Resource Strain: Not on file Food Insecurity: Not on file Transportation Needs: Not on file Physical Activity: Not on file Housing Stability: Not on file Objective: BP (!) 148/109 Pulse 98 Temp 36.3 ??C (97.4 ??F) Wt (!) 174.6 kg (385 lb) LMP 12/30/2022 SpO2 100% BMI 66.09 kg/m?? Body mass index is 66.09 kg/m??. General: anxious, sitting on chair, not in acute distress Pulm: Normal work of breathing. Pelvic: Normal appearing external genitalia. estrogenized vaginal mucosa. Large graves speculum used. Cervix was unable to be visualized due to patient's habitus, redundant vaginal tissue and patient's inability to continue the exam. Neuro: grossly intact Assessment/Plan: Juan A Connelly is a 37 y.o. premenopausal female presenting for AUB. 1- AUB: Meets criteria for AUB based on Subjectively heavy bleeding (changing pad/tampon every 2 hours). We discussed different etiologies of abnormal uterine bleeding including structural causes (polyp/fibroids/adenomyosis), hormonal causes (thyroid problems, perimenopause, PCOS, obesity) and most concerning being hyperplasia or cancer. Will do workup to help determine cause. TVUS ordered to eval for structural cause. She is steralized s/p bilateral salpingectomy. TSH was normal on 12/30 based on PCP testing. pProlactin ordered (+ PCOS labs: testosterone, LH/FSH, 17hydroxyprogesterone, DHEAS). HG stable at 13.9 from OSH labs. Per ACOG an EMB is recommended >35 with risk factors (white race, obesity,hypertension) She had one done in 2019 which was benign, We discussed the recommendation to repeat it today givenher risk factors and she agreed, given inability to visualize the cervix and inability to tolerate the exam and EMB was unable to be done. We discussed the importance or getting it done and discussedpotential plan of doing an exam under anesthesia to both repeat her pap and get an EMB. She agrees with that plan and would like to wait until her ultrasound results come back and she will discuss plans moving forward at her follow up visit. Her most likely diagnosis is AUB-O We briefly discussed hormonal treatment but will defer remainder of treatment plan until results ofabove. - She plans to follow up appointment to discuss TVUS and labs 2- Cervical cancer screening: - Given unsatisfactory pap smear done in November, pap attempted but was unable to collect due to inability to tolerate the exam. - if patient is taken to the OR for an EUA, will plan to repeat pap. Plan discussed with attending physician Yvonne Strong MD PGY-1 01/12/23 * Rylie Manuel LNA - 01/11/2023 2:40 PM EDT Examination chaperoned by RAHEL Mcghee. * Bud Gómez MD - 01/11/2023 2:40 PM EDT The case was discussed at the time of the visit with Dr. Moy Sinclair. I have reviewed the history, physical exam, assessment and plan and I agree with them as documented. Bud Gómez MD 2023 6:38 AM documented in this encounter Plan of Treatment Not on file documented as of this encounter Results * DHEA-sulfate (01/26/2023 4:47 PM EDT) Dehydroepiandrosterone Sulfate 88.2 60.9 - 337.0 mcg/dL [facility] Blood 01/26/2023 4:47 PM EDT 01/26/2023 4:50 PM EDT Narrative Resulting Agency Comment Spec In Lab Bud Gómez MD CHEMISTRY ORDERABLES [facility] [address] * Testosterone, total and free (01/26/2023 4:47 PM EDT) Testo, Total (Ms) (JANUARY) 22 8 - 60 ng/dL [facility] Comment: ADDITIONAL INFORMATION Testing performed by Liquid Chromatography-Tandem Mass Spectrometry (LC-MS/MS). This test was developed and its performance characteristics determined by [facility] in a manner consistent with CLIA requirements. This test has not been cleared or approved by the U.S. Food and Drug Administration. Test Performed by: [facility] [place] [address] Landscape Artist: Rey Mai M.D. Ph.D.; CLIA# [id number] Testo Free (JANUARY) 0.41 <0.13 - 1.00 ng/dL [facility] Comment: ADDITIONAL INFORMATION This test was developed and its performance characteristics determined by [facility] in a manner consistent with CLIA requirements. This test has not been cleared or approved by the U.S. Food and Drug Administration. Test Performed by: [facility] [employer] [address] Landscape Artist: Rey Mai M.D. Ph.D.; CLIA# [id number] Blood 01/26/2023 4:47 PM EDT 01/29/2023 8:19 AM EDT Narrative Resulting Agency Comment Spec In Lab Bud Gómez MD LAB SEND OUT ORDERAB LES [facility] [address] * Follicle Stimulating Hormone (01/26/2023 4:47 PM EDT) Follicle Stimulating Hormone 5.6 mlU/ML [facility] Comment: Reference Ranges Male: ? 1.5-12.4 mIU/mL Female ?? Follicular: ?3.5-12.5 mIU/mL ?? Ovulation: ? 4.7-21.5 mIU/mL ?? Luteal: ?1.7-7.7 mIU/mL ?? Postmenopausal: ?25.8-134.8 mIU/mL Blood 01/26/2023 4:47 PM EDT 01/26/2023 4:50 PM EDT Narrative Resulting Agency Comment Spec In Lab Bud Gómez MD CHEMISTRY ORDERABLES Performing Organization Address [facility] Co de Phone Number [facility] [address] * Luteinizing Hormone (01/26/2023 4:47 PM EDT) Luteinizing Hormone 2.9 mlU/ML [facility] Comment: Reference Ranges Male: ? 1.7-8.6 mIU/mL Female ?? Follicular: ?2.4-12.6 mIU/mL ?? Ovulation: ? 14.0-95.6 mIU/mL ?? Luteal: ?1.0-11.4 mIU/mL ?? Postmenopausal: ?7.7-58.5 mIU/mL Blood 01/26/2023 4:47 PM EDT 01/26/2023 4:50 PM EDT Narrative Resulting Agency Comment Spec In Lab Bud Gómez MD CHEMISTRY ORDERABLES Performing Organization Address [facility] de Phone Number [facility] [address] * 17-Hydroxyprogesterone (01/26/2023 4:47 PM EDT) 17-Hydroxyprog (MAY) 11 ng/dL [facility] Comment: Adult Female Reference Ranges for 17-Hydroxyprogesterone: ??Pre-Menopausal Mid Follicular: ??23-102 ng/dL ??Pre-Menopausal Surge: ? 67-349 ng/dL ??Pre-Menopausal Mid Luteal: ? 139-431 ng/dL ??Postmenopausal Phase: ?< or = 45 ng/dL : ?? First Trimester: ??78-457 ng/dL ?? Second Trimester: 90-357 ng/dL ?? Third Trimester: 144-578 ng/dL This test was developed and its analytical performance characteristics have been determined by [facility]. It has not been cleared or approved by FDA. This assay has been validated pursuant to the CLIA regulations and is used for clinical purposes. Test Performed by: [facility] [address] [address] Blood 01/26/2023 4:47 PM EDT 01/29/2023 8:19 AM EDT Narrative Resulting Agency Comment Spec In Lab Bud Gómez MD LAB SEND OUT ORDERAB LES Performing Organization Address City/[facility]/ZIP Co de Phone Number [facility] [address] * Prolactin (01/26/2023 4:47 PM EDT) Prolactin 15.1 4.8 - 23.3 ng/mL [facility] Blood 01/26/2023 4:47 PM EDT 01/26/2023 4:50 PM EDT Narrative Resulting Agency Comment Spec In Lab Bud Gómez MD CHEMISTRY ORDERABLES Performing Organization Address City/[facility]/ZIP Co de Phone Number [facility] [address] * US Transvaginal Non OB (01/26/2023 4:27 PM EDT) Anatomical Region Laterality Modality Ultrasound 01/26/2023 3:56 PM EDT Impressions 01/26/2023 4:39 PM EDT 1. Limited sonographic evaluation of the uterus due to positioning and habitus. 2. No sonographic abnormality identified with the uterus or ovaries. Thank you for letting us participate in the care of this patient. If you are a health care provider and have any questions regarding this report, please contact the number above. For patients who have questions, please contact the health health care coach that requested your imaging first. ?Nancie Mayorga, Staff Physician Electronically Signed Final Report ?? 01/26/2023 04:39 pm Narrative 01/26/2023 4:39 PM EDT Gynecological Report ?(Signed Final 01/26/2023 04:39 pm) PATIENT INFO: ID #: ? [id number] ?: ??[birth year] (38 yrs)(F) Name: ? JUAN A CONNELLY ?Visit Date: 01/26/2023 03:56 pm PERFORMED BY: Attending: ?Mukesh GONZALEZ, Nancie Frankel Performed By: ? Darlene Quintero RDMS Referred By: ?BUD GÓMEZ Location: ? [place] SERVICE(S) PROVIDED: UTV - Transvaginal - [id number] ?[id number] UPELIM - Pelvis Limited - [id number] ? [id number] INDICATIONS: AUB TECHNIQUE/SCAN QUALITY: Technique: ?Transducer ID#:[id number] Scan Quality: ?? Technically limited visualization due ? to patient body habitus COMPARISON: Transvaginal ultrasound 07/21/20 -------- HISTORY: -------- Age: ?? 38 ?G: ?2 ?P: ?? 2 Menses: ?Abnormal Uterine Bleeding ?(AUB) Hormone Treatment: ? None ------- UTERUS: ------- Uterus: ? Visualized Position: ?? Anteverted/neutral Size (cm) ?L: ??10.3 ?W: ?? 7.0 ?H: ??5.3 ENDOMETRIUM: Endometrium: ?Normal appearance Thickness(mm): ?17.3 ------- CERVIX: ------- Multiple nabothian cysts seen CUL-DE-SAC: No fluid is visualized. RIGHT OVARY: Status: ?? Visualized Size (cm) ?L: ??3.2 ? W: ?? 2.7 ?H: ??1.5 Vol (ml): ?6.8 Morphology: ?Normal appearance Comment: ? Ovary was not seen transvaginally, therefore ?transabdominal ultrasound was performed. LEFT OVARY: Status: ?? Visualized Size (cm) ?L: ??3.0 ? W: ?? 3.4 ?H: ??2.6 Vol (ml): ?13.9 Morphology: ?Normal appearance Comment: ? Ovary was not seen transvaginally, therefore ?transabdominal ultrasound was performed. Procedure Note Nancie Mayorga MD - 01/26/2023 Gynecological Report (Signed Final 01/26/2023 04:39 pm) PATIENT INFO: ID #: [id number] : [birth year] (38 yrs)(F) Name: JUAN A CONNELLY Visit Date: 01/26/2023 03:56 pm PERFORMED BY: Attending: Nancie Mayorga MD Performed By: Darlene Quintero RDMS Referred By: BUD GÓMEZ Location: [place] SERVICE(S) PROVIDED: UTV - Transvaginal - [id number] UPELIM - Pelvis Limited - [id number] INDICATIONS: AUB TECHNIQUE/SCAN QUALITY: Technique: Transducer ID#:[id number] Scan Quality: Technically limited visualization due to patient body habitus COMPARISON: Transvaginal ultrasound 07/21/20 -------- HISTORY: -------- Age: 38 P: 2 Menses: Abnormal Uterine Bleeding (AUB) Hormone Treatment: None ------- UTERUS: ------- Uterus: Visualized Position: Anteverted/neutral Size (cm) L: 10.3 W: 7.0 H: 5.3 ENDOMETRIUM: Endometrium: Normal appearance Thickness(mm): 17.3 ------- CERVIX: ------- Multiple nabothian cysts seen CUL-DE-SAC: No fluid is visualized. RIGHT OVARY: Status: Visualized Size (cm) L: 3.2 W: 2.7 H: 1.5 Vol (ml): 6.8 Morphology: Normal appearance Comment: Ovary was not seen transvaginally, therefore transabdominal ultrasound was performed. LEFT OVARY: Status: Visualized Size (cm) L: 3.0 W: 3.4 H: 2.6 Vol (ml): 13.9 Morphology: Normal appearance Comment: Ovary was not seen transvaginally, therefore transabdominal ultrasound was performed. IMPRESSION 1. Limited sonographic evaluation of the uterus due to positioning and habitus. 2. No sonographic abnormality identified with the uterus or ovaries. Electronically signed by: Nancie Mayorga MD, [facility] ([phone]), at 01/26/2023 4:32 PM Thank you for letting us participate in the care of this patient. If you are a health care provider and have any questions regarding this report, please contact the number above. For patients who have questions, please contact the health health care coach that requested your imaging first. Nancie Mayorga, Staff Physician Electronically Signed Final Report 01/26/2023 04:39 pm Bud Gómez MD IMG US PELVIC ORDERA BLES documented in this encounter Visit Diagnoses Diagnosis Abnormal uterine bleeding (AUB) Abnormal uterine bleeding (AUB) documented in this encounter Care Teams Hi Lift Operator Relationship Specialty Start Date End Date Trisha Jacobson, [address] [place] [address] PCP - General 07/29/21 documented as of this encounter
--- OUTSIDE RECORDS SUMMARY | 2024-07-15 21:45 | XMS_ITS | Encounter Summary ---
Author Organization [facility] Address [facility] [place] [address] Care Team Providers Care Journalism Teacher Name Role Phone KavonDanyelbraden Camara APRN Primary Care Provider + Encounter Details Date Type Department Care Team (Late st Contact Info) Description 03/05/2023 Telephone Obstetrics [place] [phone] Jennifer Blair MD [facility] [address] OBSTETRICS [place] [address] Social History Tobacco Use Types Packs/Day Years Used Date Smoking Tobacco: Former Smokeless Tobacco: Never Alcohol Use Standard Drinks/Week Comments Not Currently 0 (1 standard drink = 0.6 oz pur e alcohol) [facility] Inpatient Questions Answer Date Recorded Does Anyone [...] Telephone Encounter - Jennifer Blair MD - 03/05/2023 2:52 PM EDT Obgyn Note Called Cecilia to review surgical pathology (see prior phone note) from EMBx and ECC Pap cotesting pending (h/o CAROLEE III) She has had a surgical consult with Dr. Francis Plans bariatric surgery meeting and go from there Cecilia has desired a hysterectomy (see my op note from recent hysteroscopy for details on challenges reach cervix due to cervix position and due to prior LEEP leaving denuded posterior cervix). Recommend bypass and weight loss prior to hysterectomy (aware would be consult with Certified Legal Secretary Specialist Onc for robotic) Desires management for heavy menses which are monthly (States they have always been heavy for her since menarche) Recommended avoiding estrogen containing CHC's given clotting RF's of <35 yo an BMI of 64 Cecilia does not want to try the IUD again as she had pain and cramping with that Rx'd POP's which she may decide to try She will f/u as needed in interim Or at least in one year (send message to secretaries) 1. Abnormal uterine bleeding (AUB) norethindrone (Micronor) 0.35 mg tablet Jennifer Blair MD documented in this encounter Plan of Treatment Not on file documented as of this encounter Visit Diagnoses Diagnosis Abnormal uterine bleeding (AUB) documented in this encounter Care Teams Journalism Teacher Relationship Specialty Start Date End Date Trisha Jacobson, [address] [place] [address] PCP - General 07/29/21 documented as of this encounter
--- OUTSIDE RECORDS SUMMARY | 2024-07-15 21:45 | XMS_ITS | Encounter Summary ---
Author Organization [facility] Address [facility] [place] [address] Care Team Providers Care Vaccine Customer Representative Name Role Phone KavonDanyelbraden Camara APRN Primary Care Provider + Encounter Details Date Type Department Care Team (Latest Contact Info) Description 01/26/2023 3:51 PM EDT - 01/26/2023 11:59 PM EDT Hospital En[place] [address] [facility] OBSTETRICS [place] [address] Abnormal uterine bleeding (AUB) Discharge Disposition: Home Social History Tobacco Use [...] on file documented as of this encounter Medications at Time of Discharge [...] by mouth daily. Lavender Oil Oil by [employer].(Non-Drug; Combo Route) route. LORazepam (Ativan) 1 mg Tablet Take 1 mg by mouth every 6 hours as needed for Anxiety. ibuprofen (Advil;Motrin) 800 mg Tablet Take 1 tablet by mouth every 6 hours as needed for Pain. 30 tablet 12 09/22/2020 glucosam/chond/collage n/hyalur (JOINT SUPPORT ORAL) Take 3 tablets by [...] Floxin 3 Drop(s), AU, Otic, TID 04/16/2001 armodafinil (NUVIGIL ORAL) Take by mouth. 02/20/2023 buPROPion SR (Wellbutrin SR) 150 mg tablet sustained-release 12 hr Take 150 mg by mouth 2 times daily. 02/20/2023 modafiniL (Provigil) 100 mg Tablet TAKE 1 TABLET BY MOUTH ONCE DAILY 07/01/2020 02/20/2023 sertraline (ZOLOFT) 100 mg Tablet 50 mg. Half tab once a day 05/12/2020 02/20/2023 topiramate (TOPAMAX) 50 mg Tablet TAKE 1 TABLET BY MOUTH TWICE DAILY 05/02/2020 02/20/2023 fluticasone propionate (FLOVENT) 110 mcg/actuation HFA Aerosol Inhaler Inhale 1 puff into the lungs 2 times daily. 02/20/2023 documented as of this encounter Plan of Treatment Not on file documented as of this encounter Procedures Procedure Name Priority Date/Time Associated Diagnosis Comments US TRANSVAGINAL NON OB Routine 01/26/2023 4:27 PM EDT Abnormal uterine bleeding (AUB) documented in this encounter Results * US Transvaginal Non OB (01/26/2023 4:27 PM EDT) Anatomical Region Laterality Modality Ultrasound 01/26/2023 3:56 PM EDT Impressions 01/26/2023 4:39 PM EDT 1. Limited sonographic evaluation of the uterus due to positioning and habitus. 2. No sonographic abnormality identified with the uterus or ovaries. Electronically signed by: Nancie Mayorga MD, [facility] ([phone]), at 01/26/2023 4:32 PM Thank you for letting us participate in the care of this patient. If you are a health care provider and have any questions regarding this report, please contact the number above. For patients who have questions, please contact the health residential care officer that requested your imaging first. ?Nancie Mayorga, Staff Physician Electronically Signed Final Report ?? 01/26/2023 04:39 pm Narrative 01/26/2023 4:39 PM EDT Gynecological Report ?(Signed Final 01/26/2023 04:39 pm) PATIENT INFO: ID #: ? [id number] ?: ??[birth year] (38 yrs)(F) Name: ? JUAN A CONNELLY ?Visit Date: 01/26/2023 03:56 pm PERFORMED BY: Attending: ?Mukesh GONZALEZ, Nancie Frankel Performed By: ? Darlene Quintero RDMS Referred By: ?BUD GÓMEZ Location: ? [place] SERVICE(S) PROVIDED: UTV - Transvaginal - [id number] ?[id number] UPELIM - Pelvis Limited - [id number] ? [id number] INDICATIONS: AUB TECHNIQUE/SCAN QUALITY: Technique: ?Transducer ID#:[id number] [...] 01/26/2023 04:39 pm) PATIENT INFO: ID #: [id number] : [birth year] (38 yrs)(F) Name: JUAN A Alberto ALTAF Visit Date: 01/26/2023 03:56 pm PERFORMED BY: Attending: Nancie Mayorga MD Performed By: Darlene Quintero RDMS Referred By: BUD GÓMEZ Location: [place] SERVICE(S) PROVIDED: UTV - Transvaginal - [id number] UPELIM - Pelvis Limited - [id number] INDICATIONS: AUB TECHNIQUE/SCAN QUALITY: Technique: Transducer ID#:[id number] [...] ovaries. Electronically signed by: Nancie Mayorga MD, [facility] ([phone]), at 01/26/2023 4:32 PM Thank you for letting us participate in the care of this patient. If you are a health care provider and have any questions regarding this report, please contact the number above. For patients who have questions, please contact the health residential care officer that requested your imaging first. Nancie Mayorga, Staff Physician Electronically Signed Final Report 01/26/2023 04:39 pm Bud Gómez MD IMG US PELVIC ORDERA BLES documented in this encounter Visit Diagnoses Diagnosis Abnormal uterine bleeding (AUB) documented in this encounter Care Teams Vaccine Customer Representative Relationship Specialty Start Date End Date Trisha Jacobson, TIP FINISHER [facility] [address] [place] [address] PCP - General 07/29/21 documented as of this encounter
--- OUTSIDE RECORDS SUMMARY | 2024-07-15 21:45 | XMS_ITS | Encounter Summary ---
Author Organization [facility] [place] [address] Care Team Providers Care Resident Engineer Name Role Phone Trisha Jacobson CLOTH SHRINKING SUPERVISOR Primary Care Provider + Encounter Details Date Type Department Care Team (Latest Contact Info) Description 11/23/2022 Travel Social History Tobacco Use Types Packs/Day [...] on filedocumented in this encounter Care Teams Resident Engineer Relationship Specialty Start Date End Date Trisha Jacobson, MUMTAZ [address] [place] [address] PCP - General 07/29/21 documented as of this encounter
--- OUTSIDE RECORDS SUMMARY | 2024-07-15 21:45 | XMS_ITS | Encounter Summary ---
Author Organization [facility] Address [facility] Anamika [facility] [place] [address] Care Team Providers Care Manager Product Design Name Role Phone KavonDanyelbraden Camara APRN Primary Care Provider + Reason for Visit * Reason Comments Follow-up Encounter Details Date Type Department Care Team (Latest Contact Info) Description 07/29/2021 1:40 PM EST Office Visit Obstetrics [place] [address] Jennifer Blair MD [facility] DR OBSTETRICS [place] [address] Cervical cancer screening; HSIL (high grade squamous intraepithelial lesion) on Pap smear of cervix; HPV vaccine counseling Social History Tobacco Use Types Packs/Day Years [...] Sign Reading Time Taken Comments Blood Pressure 127/74 07/29/2021 1:48 PM EST Pulse 102 07/29/2021 1:48 PM EST Temperature 36.7 ??C (98 ??F) 07/29/2021 1:48 PM EST Respiratory Rate 18 07/29/2021 1:48 PM EST Oxygen Saturation 96% 07/29/2021 1:48 PM EST Inhaled Oxygen Concentration - - Weight 189.9 kg (418 lb 11.2 oz) 07/29/2021 1:48 PM EST Height 163.8 cm (5' 4.5) 07/29/2021 1:48 PM EST Body Mass Index 70.76 07/29/2021 1:48 PM EST documented in this encounter Progress Notes * Jennifer Blair MD - 07/29/2021 1:40 PM EST Obgyn Clinic Visit Chief Complaint Patient presents with ??? Follow-up Patient Active Problem List Diagnosis ??? BMI 60.0-69.9, adult ??? CAROLEE III (cervical intraepithelial neoplasia III) COTEST and ECC ~03/2021 (I.e. 6 months after LEEP) (RHE) Subjective: Ms. Cecilia Connelly is a 36 y.o. premenopausal woman with BTL and BMI of 70 and h/o HGSIL s/p LEEP in OR with HGSIL and neg margins, presenting for f/u cotesting and ECC. Periods monthly, heavy but not as bad as it was Has BTL for contraception Does not appear to have seen Dr. Norris with [facility] as planned Completed two of the three HPV vaccines, plans third today Medical history reviewed Medications and allergies reviewed with pt. Review of Systems: ?? Per HPI OB History 2 Para 2 Term 2 AB Living 2 SAB IAB Ectopic Multiple Live Births 2 # Outc Date GA Lbr Davis/2nd Wgt Sex Del Anes PTL Lv 1 01/2015 36w0d 2.92 kg (6 lb 7 oz) F C-S scar Living Comments: PPROM, breech 2 06/2016 36w0d F C-S scar Living Comments: Pre-eclampsia, repeat CS due to short [id number] Objective: Exam performed with clinic flow staff in room dining server BP 127/74 Pulse (!) 102 Temp 36.7 ??C (98 ??F) Resp 18 Ht 163.8 cm (5' 4.5) Wt (!) 189.9kg (418 lb 11.2 oz) LMP 07/06/2021 (Approximate) SpO2 96% BMI 70.76 kg/m?? Body mass index is 70.76 kg/m??. Constitutional: Pleasant and conversant, appears well, presents alone Genitourinary: Long graves speculum ?? External genitalia without lesions or abnormalities ?? Urethral meatus without lesions or abnormalities ?? Urethra without tenderness, masses ?? Vaginal epithelium pink and moist; cervix without lesions though limited visualization of posterior aspect of cervix secondary to habitus, physiologic discharge ?? No perianal lesions ?? Pelvic support without obvious defects Neuro/Psychiatric: A&Ox3, appropriate affect Extremities: No lower extremity edema or erythema Procedure: Pap Smear and ECC Verbal consent obtained. A long graves speculum was placed in the vagina and the anterior lip of the cervix visualized. Given the difficulty visualizing the posterior lip and the os, the anterior lipwas grasped with a single toothed tenaculum. The cervix appeared smooth and without lesions. A pap smear and endocervical sampling with the brush were obtained. An ECC was performed. The procedure was uncomfortable but Cecilia tolerated it well. This patient has morbid obesity with a Body mass indexof 70 kg/m??.. This made the procedure significantly more difficult. Labs: None Assessment/Plan: F/u pap and ECC given h/o HSIL on LEEP, negative margins. Difficult to visualize cervix, long speculum and tenaculum used. Plan had been to do every 6 month cotesting and ECC x 2 then yearly but since we are almost a year out from LEE given Cecilia's need to push back the appointment based on work, likely if this ECC and cotesting are neg/neg we could consider repeat cotesting only in one year. One HPV vaccine here 07/2020, second one at [facility] spring 2020, third administered today Check out note / Follow up plan: Follow up with Dr. Blair EXTENDED TIME one year. 1. Cervical cancer screening Cytopathology Gynecological 2. HSIL (high grade squamous intraepithelial lesion) on Pap smear of cervix Specimen to Pathology Jennifer Blair MD documented in this encounter Plan of Treatment Not on file documented as of this encounter Procedures Procedure Name Priority Date/Time Associated Diagnosis Comments SPECIMEN TO PATHOLOGY Routine 07/29/2021 2:15 PM EST HSIL (high grade squamous intraepithelial lesion) on Pap smear of cervix HPV Routine 07/29/2021 2:14 PM EST WEB APPLICATIONS PROGRAMMER CYTOLOGY INTERPRETATION Routine 07/29/2021 2:14 PM EST WEB APPLICATIONS PROGRAMMER CYTOLOGY FINAL REPORT Routine 07/29/2021 2:14 PM EST CYTOPATHOLOGY GYNECOLOGICAL Routine 07/29/2021 2:14 PM EST Cervical cancer screening SURGICAL PATHOLOGY REPORT Routine 07/29/2021 1:40 PM EST documented in this encounter Results * Specimen to Pathology (07/29/2021 2:15 PM EST) AP Specimen 07/29/2021 2:15 PM EST 07/29/2021 2:15 PM EST Narrative [facility] - 07/29/2021 2:15 PM EST Specimen requisition ordered. ??Separate Pathology report to follow Jennifer Blair MD PATHOLOGY/CYTOLOGY O CHEO Performing Organization Address [facility] Co de Phone Number [facility] [place] [place] [address] * WEB APPLICATIONS PROGRAMMER Cytology Interpretation (07/29/2021 2:14 PM EST) Budget Technician Cytology Interpretation Unsatisfactory [facility] Comment:Budget Technician Cytology Final R eport Budget Technician Cytology Comment Present [facility] Endocervical Component Unsatisfactory [facility] AP Specimen 07/29/2021 2:14 PM EST 08/17/2021 1:50 PM EST Jennifer Blair MD PATHOLOGY/CYTOLOGY O CHEO Performing Organization Address City/[facility]/ZIP Co de Phone Number [facility] [place] [address] * Budget Technician Cytology Final Report (07/29/2021 2:14 PM EST) Budget Technician Cytology Final Report [id number] ? Location: 5L The signing pathologist has (i) examined the relevant preparation(s) for the specimen(s) and (ii) rendered or confirmed the diagnosis(es). . ? Budget Technician Final DIAGNOSIS Unsatisfactory Specimen submitted is unsatisfactory for evaluation. ??See discussion. For consensus guidelines for the management of cervical cancer screening test results, please see: ?? http://www.asccp. org . Electronically signed by: ?Sia CASTORENA(ASCP)Cristal Verified: ??08/17/2021 13:50 ??Cytotechnologis t Performed at: ??-[facility] Dept. of Pathology, [place], [place] DISCUSSION Specimen processed and examined but unsatisfactory for evaluation of epithelial abnormality due to insufficient squamous cellularity. HPV RESULTS HPV16 (Result) ?Negative HPV18 (Result) [...] to detect low risk HPV types. Lidia toan HPV test Specimen: HPV Testing - Cytology Liquid Based Prep The Lidia toan ? HPV test was validated, performed and results reported through the Laboratory for Clinical Genomics and Advanced Technology (CGAT) at [facility]. ? - Jesu Mott, PhD, [facility], Director-[facility] STATEMENT OF ADEQUACY Specimen submitted is unsatisfactory due to insufficient squamous component. CLINICAL INFORMATION HPV Option: ?Concurrent HPV and Pap CT/NG Option: ?No Preparation: ? Liquid based Pap Specimen Source: ? Cervical/Endocerv ical LMP: ? N/A Hysterectomy: ?No : ?No : ?No I.U.D.: ?No Pelvic Radiation: ?No Hist Abnl Pap/Biopsy: ?No Prior WEB APPLICATIONS PROGRAMMER Therapy: ? No Hist of HPV Vaccine: ? Yes ICD Diagnosis: ? Z12.4 Encounter for screening for malignant neoplasm of cervix . CLINICAL INFORMATION Clinical Data, Significant Therapy and Clinical Impression ?? : ?_ This Pap Test has been evaluated with the assistance of the [employer] Pap Test Imaging System. Note: The Pap test is a screening test for cervical cancer with an inherent false-negative rate dependent upon several variables. For further information please contact the [facility] Laboratory. Reference: Bc SNOW. Information Systems Manager of Pap Smear Results. In: Lyudmila BS, Nathan HH, ed. The Pap Smear. [place]: Brady, 2002: 71-77. [facility] 07/29/2021 2:14 PM EST Jennifer Blair MD PATHOLOGY/CYTOLOGY O CHEO [facility] [place] [place] [address] * HPV (07/29/2021 2:14 PM EST) HPV16 NEGATIVE NEGATIVE [facility] HPV 18 NEGATIVE NEGATIVE [facility] HPV Other HR NEGATIVE NEGATIVE [facility] HPV Interpretation See Comment [facility] Comment: NEGATIVE for high-risk HPV *. * Testing negative for high risk HPV means that the specimen is negative for the following 14 types tested: ??types 16, 18, 31, 33, 35, 39, 45, 51, 52, 56, 58, 59, 66, and 68. ??The test is not intended to detect low risk HPV types. Lidia Toan HPV test Specimen: HPV Testing - Cytology Liquid Based Prep Cervical 07/29/2021 2:14 PM EST 07/29/2021 6:18 PM EST Narrative Resulting Agency Comment Spec In Lab Jennifer Blair MD PATHOLOGY/CYTOLOGY O CHEO Performing Organization Address [facility] de Phone Number [facility] [place] [phone] * Cytopathology Gynecological (07/29/2021 2:14 PM EST) AP Specimen 07/29/2021 2:14 PM EST 07/29/2021 2:14 PM EST Narrative [facility] - 07/29/2021 2:14 PM EST Specimen requisition ordered. ??Separate Pathology report to follow Jennifer Blair MD PATHOLOGY/CYTOLOGY O CHEO Performing Organization Address [facility] Phone Number [facility] [place] [address] * Surgical Pathology Report (07/29/2021 1:40 PM EST) Final Diagnosis [id number] ? Location: 5L The signing pathologist has (i) examined the relevant preparation(s) for the specimen(s) and (ii) rendered or confirmed the diagnosis(es). . ?Surgical Pathology DIAGNOSIS A - Endocervix (curettage): ??- Fragments of metaplastic squamous mucosa with acute inflammation. ??- No definitive evidence of an intraepithelial lesion. ??- Endocervical tissue is not identified. Electronically signed by: ?Concepcion GONZALEZ, Sandra Contreras Verified: ??08/16/2021 15:45 ??Pathologist Performed at: ??-[facility] Dept. of Pathology, [place], [place] SPECIMEN(S) SUBMITTED A - Endocervix, biopsy (1) CLINICAL INFORMATION ECC history of HSIL S/P prior LEEP SPECIMEN PROCESSING A - Labeled/Fixative: Patient demographics, formalin. Quantity/Size: ??Fragments, 0.4 x 0.1 x 0.1 cm. Tissue Description: White-barbosa wispy soft tissue. Sections/Processin g: Submitted en toto in 1 cassette labeled A1. ??shb 08/16/2021 3:45 PM EST [facility] ENDOCERVICAL STRUCTURE / Unknown 07/29/2021 1:40 PM EST 07/29/2021 1:40 PM EST Jennifer Blair MD PATHOLOGY/CYTOLOGY O RDERABLES [facility] [place] [place] [address] documented in this encounter Visit Diagnoses Diagnosis Cervical cancer screening Screening for malignant neoplasm of the cervix HSIL (high grade squamous intraepithelial lesion) on Pap smear of cervix Papanicolaou smear of cervix with high grade squamous intraepithelial lesion (HGSIL) HPV vaccine counseling Other specified counseling documented in this encounter Care Teams Manager Product Design Relationship Specialty Start Date End Date Trisha Jacobson, RESERVATIONS SALES AGENT [address] [place] [address] PCP - General 07/29/21 documented as of this encounter
--- OUTSIDE RECORDS SUMMARY | 2024-07-15 21:45 | XMS_ITS | Encounter Summary ---
Author Organization Pending [facility] Address [facility] [place] [address] Care Team Providers Care Supplier Manager Name Role Phone JacobsonDanyelbraden Camara APRN Primary Care Provider + Encounter Details Date Type Department Care Team (Late st Contact Info) Description 10/07/2021 Telephone Obstetrics [place] [phone] Jennifer Blair MD [facility] OBSTETRICS [place] [address] Social History Tobacco Use Types Packs/Day Years [...] Telephone Encounter - Jennifer Blair MD - 10/07/2021 5:45 PM EST Obgyn Phone Note Called to inform of NILM, neg HR HPV pap. Recommend cotest one year given h/o HGSIL on LEEP. Note sent to secretaries for reminder. Cecilia stated understanding of plan. Completed HPV vaccine series. Jennifer Blair MD documented in this encounter Plan of Treatment Not on file documented as of this encounter Visit Diagnoses Not on filedocumented in this encounter Care Teams Supplier Manager Relationship Specialty Start Date End Date Trisha Jacobson, DENTAL HYGIENE PROFESSOR [address] [place] [address] PCP - General 07/29/21 documented as of this encounter
--- OUTSIDE RECORDS SUMMARY | 2024-07-15 21:46 | XMS_ITS | Encounter Summary ---
Author Organization [facility] [place] [address] Care Team Providers Care Briquette Machine Operator Name Role Phone Char Alexandre APRN Primary Care Provider + Reason for Referral * Consultation (Routine) - Closed Specialty Diagnoses / Procedures Referred By Contac t Referred To Contact Obstetrics and Gynecology Diagnoses Other urinary incontinence BMI 60.0-69.9, adult Jennifer Blair MD [facility] OBSTETRICS [place] [address] [facility] Formulation Chemist [address] [place] [address] Referral ID Status Reason Start Date Expiration Date V isits Requested Visits Authorized [id number] Closed Consult, Test & Treat 11/16/2020 11/16/2021 1 1 * Consultation (Routine) - Closed Specialty Diagnoses / Procedures Referred By Contac t Referred To Contact Weight and Wellness Diagnoses BMI 60.0-69.9, adult Jennifer Blair MD [facility] OBSTETRICS [place] [address] [facility] [address] [place] [address] Referral ID Status Reason Start Date Expiration Date V isits Requested Visits Authorized [id number] Closed Consult, Test & Treat 11/16/2020 11/16/2021 1 1 Reason for Visit * Reason Comments Follow-up LEEP CAROLEE III, and me terese s/p IUD removal Encounter Details Date Type Department Care Team (Latest Contact Info) Description 11/16/2020 3:20 PM EST TH Visit (TeleHealth) Obstetrics [place] [address] Jennifer Blair MD [facility] DR OBSTETRICS [place] [address] Other urinary incontinence; BMI 60.0-69.9, adult Social History Tobacco Use Types [...] - Inhaled Oxygen Concentration - - Weight 181.4 kg (400 lb) 11/14/2020 1:37 PM EST Height 163.8 cm (5' 4.5) 11/14/2020 1:37 PM EST Body Mass Index 67.6 11/14/2020 1:37 PM EST documented in this encounter Progress Notes * [facility] - 11/16/2020 3:20 PM EST ____ Patient not reached _X__Patient reached and the following information was reviewed/obtained per protocol.-verified withhusband _X__Confirmed patient name and date of _X__Confirmed tele med appt (Virtual visit) is downloaded and functioning _X__Confirmed location of patient- TeleVisit is taking place in [place]_X_ [place]__[place]__ [place]__ If not on [facility], working on signing up for my DH Confirmed has completed any pre-visit questionnaires If has not received required previsit questionnaires, send via [facility] _X__Reviewed medications, allergies, pharmacy, pain/depression, education _X__Documented height/weight/LMP Other information or concerns: * Jennifer Blair MD - 11/16/2020 3:20 PM EST Images from the original note were not included. Obgyn Telehealth Office Visit: Established Patient Note: Patient verbally consents to this telehealth visit and understands that this visit is billable, similar to a clinic office visit. Chief Complaint Patient presents with ??? Follow-up LEEP CAROLEE III, and menes s/p IUD removal Patient Active Problem List Diagnosis ??? BMI 60.0-69.9, adult ??? CAROLEE III (cervical intraepithelial neoplasia III) COTEST and ECC ~03/2021 (I.e. 6 months after LEEP) (RHE) Subjective: Ms. Cecilia Connelly is a 35 y.o. premenopausal woman presenting for telehealth appointment for f/u LEEP and IUD removal in [place] (indication was difficulty seeing cervix in office though was seen and ECC collected in office, BMI 68). CAROLEE III on LEEP: Neg margins Plan for repeat pap smear with cotesting and ECC 03/2021 No current tobacco use, quit smoking 6 years ago Had first dose of HPV vaccine, plans on second dose, states PCP was being careful about not giving at same time as COVID vaccine H/o heavy menses, had Mirena IUD, requested it be removed Had requested removal due to pain but with concerns about periods going back to as heavy as they were before She was counseled on the potential benefits of leaving the LGN IUD in place for endometrial protection given BMI >60 She definitively chose to have removed BTL for contraception Continues to have intermittent spotting and bleeding so still has to wear a pad Has had two periods since the IUD came out and they have not been as bad as prior to the IUD, she states they were very manageable and hopes they stay this way, previously used to soak pads and clothes Urinary Incontinence, frequency, sensation of incomplete emptying: Feels vulvar swelling and frequent leakage Has to wear daily pad Did high school counselor on bladder habits as outlined below Completed COVID vaccine Medical history reviewed. Medications and allergies reviewed with pt. Review of Systems: ?? Neg except per HPI OB History 2 Para 2 Term 2 AB Living 2 SAB TAB Ectopic Multiple Live Births 2 # Outc Date GA Lbr Davis/2nd Wgt Sex Del Anes PTL Lv 1 01/2015 36w0d 2.92 kg (6 lb 7 oz) F C-S scar Living Comments: PPROM, breech 2 06/2016 36w0d F C-S scar Living Comments: Pre-eclampsia, repeat CS due to short [id number]-[id number] Objective: Telehealth visit, no VS or physical exam performed Presents alone, daughter [place] popping into screen to say hi Constitutional: Appears well Labs: No new No results found for: TSH Results for CECILIA CONNELLY ( ) as of 11/16/2020 17:06 Ref. Range 09/22/2020 09:29 POC Glucose Latest Ref Range: 65 - 199 mg/dL 95 Imaging: Pelvic US in [facility] 07/21/2020 Assessment/Plan: I provided care to the patient today via telehealth video visit. The patient voiced an understanding of the reason and intent of the visit. The patient provided verbal consent to bill their insurance for the visit. Patient physically in [place] at time of this visit. Time spent reviewing the following: CAROLEE III s/p OR LEEP, margins negative: Difficult office exam but last team was able to see cervix and get sample leading to LEEP in OR So for follow up recommend ECC and cotesting 6 months from LEEP which is 03/2021 Quit smoking 6 years ago, none now Cecilia completed 1st dose of HPV vaccine, she is going to call her PCP to schedule 2nd and third BMI >60: Desires referral to [facility] Moving to [place] this summer so feels it will be easier to jet down to for visits Urinary Incontinence, frequency, sensation of incomplete emptying: Discussed different etiologies of these sxs Discussed how certainly weight loss can often help with sxs Also discussed drinking to thirst, limiting high volumes of fluids as well as bladder irritants Also encouraged trying to have some 'pad free' on vulva Briefly discussed option for eval with Urogyn and discussion of diagnosis and management options Would like to coordinate f/u pap/ECC f/u with Urogyn visit, possibly could do at same exam or may need to check in twice, do two exams, Cecilia is okay with this as long as we try to do in the same day Check out note / follow up: Referral to Urogyn to coordinate with MD Oil Tank Car Cleaner only appt for pap (technically challenging pelvic exam) in March. Both visits need extended time. Thank you. 1. Other urinary incontinence Referral to Urogynecology 2. BMI 60.0-69.9, adult Referral to [facility] Referral to Urogynecology Jennifer Blair MD documented in this encounter Plan of Treatment Scheduled Referrals Name Type Priority Associated Diagnoses Order Schedule Referral to [facility] Outpatient Referral Routine BMI 60.0-69.9, adult Ordered: 11/16/2020 Referral to Urogynecology Outpatient Referral Routine Other urinary incontinence BMI 60.0-69.9, adult Ordered: 11/16/2020 documented as of this encounter Visit Diagnoses Diagnosis Other urinary incontinence BMI 60.0-69.9, adult Body Mass Index 60.0-69.9, adult documented in this encounter Care Teams Briquette Machine Operator Relationship Specialty Start Date End Date Char Alexandre APRN PCP - General Family Medicine 04/22/20 07/28/21 documented as of this encounter
--- OUTSIDE RECORDS SUMMARY | 2024-07-15 21:46 | XMS_ITS | Encounter Summary ---
[facility] Address [facility] [place] [address] Care Team Providers Care Children'S Tutor Nursery Name Role Phone Char Alexandre APRN Primary Care Provider + Encounter Details Date Type Department Care Team (Late st Contact Info) Description 06/16/2020 Telephone [place]stetrics [place] [id number] Arlene Costello MD [facility] DR OBSTETRICS & [place] [address] Social History Tobacco Use Types Packs/Day Years Used Date Smoking Tobacco: Former Smokeless Tobacco: Never Sex and Gender Information Value Date Recorded Sex Assigned at Not on file Gender Identity Female 09/20/2020 2:54 PM EST Sexual Orientation Not on file documented as of this encounter Miscellaneous Notes * Telephone Encounter - Arlene Costello - 06/16/2020 2:21 PM EDT Cecilia is a 35 y.o. female with PMhx notable for HTN, pre-diabetes, morbid obesity, MEY, GERD, PTSD, insomnia, anxiety/depression, chronic low back pain and iron deficiency anemia, who was seen on 06/11 for Gynecologic consultation of abnormal uterine bleeding. At that visit, EMB collected and Mirena IUD inserted. Called Cecilia today to share results of EMB. She shares that following the IUD insertion, she beganto feel burning after she voids. This is still present today. Was assessed yesterday by PCP with negative UA, suspected vaginal irritation. Today she has minimal vaginal bleeding but reports ongoing cramping. Using Tylenol and heating pads PRN. Takes Naproxen daily for arthritis. I shared results of EMB, benign (see below). She is relieved by this information. I asked her to call back in 1-2 weeks if her current symptoms persist. Otherwise I plan to see her again in 3-4 months. All questions answered. 06/11/2020 Endometrial biopsy: Fragments of benign secretory endometrium admixed with blood clot, mucus, and cervical mucosa (see Discussion). Arlene Costello MD PGY4 06/16/20 documented in this encounter Plan of Treatment Not on file documented as of this encounter Visit Diagnoses Not on filedocumented in this encounter Care Teams Children'S Tutor Nursery Relationship Specialty Start Date End Date Char Alexandre APRN PCP - General Family Medicine 04/22/20 07/28/21 documented as of this encounter
--- OUTSIDE RECORDS SUMMARY | 2024-07-15 21:46 | XMS_ITS | Encounter Summary ---
Author Organization [facility] Address [address] [place] [address] Care Team Providers Care Spa Director/Finance Name Role Phone Luis Alberto Sagemarjorierafael MB Unavailable Diane Way Primary Care Provider [phone] Reason for Visit * Reason Comments Eye Exam Complete exam for Re tinal pigment epithelial detachment - Left eye Encounter Details Date Type Department Care Team (Late st Contact Info) Description 01/14/2024 14:45 EDT Office Visit [facility] Ophthalmology [facility] [address] [place] [address] Sha Andrew MD [address] [place] [phone] Social History Tobacco Use Types Packs/Day Years Used Date Smoking Tobacco: Former Cigarettes 2013 Smokeless Tobacco: Never Comments:edible marijuana in the evening Alcohol Use Standard Drinks/Week Comments Not Currently 0 (1 standard drink = 0.6 oz pur e alcohol) Sex and Gender Information Value Date Recorded Sex Assigned at Not on file Gender Identity Female 04/26/2022 9:31 EDT Sexual Orientation Not on file documented as of this encounter Functional Status Functional Status Response Date of Assess ment Are you deaf or do you have serious difficulty h earing? No 11/14/2023 Because of a physical, menta l, or emotional condition, does this person have difficulty doing errands alone such as visiting a doctor's office or shopping? Yes 05/05/2022 Cognitive Status Response Date of Assessm ent Because of a physical, menta l, or emotional condition, does this person have serious difficulty concentrating, remembering, or making decisions? Yes 05/05/2022 documented as of this encounter Patient Instructions * Patient Instructions* Sha Andrew MD - 01/14/2024 14:45 EDT Images from the original note were not included. USE: Lubricant eye drops, also called artificial tears Brands include: iVizia, Refresh, Systane Ultra, Theratears, Soothe XP, Retaine, and Genteal moderate DO NOT use Ezricare, Visine or Clear Eyes 1 drop each eye 2-4 times a day documented in this encounter Progress Notes * Sha Andrew MD - 01/14/2024 8745 EDT Chief Complaint Patient presents with Eye Exam Complete exam for Retinal pigment epithelial detachment - Left eye HPI The patient is a 38 y.o. female here for follow up of retinal pigment epithelial detachment, left eye. She reports vision is blurry at times. She has some dryness, itching, tearing and light sensitivity.She sees occasional floaters, but no flashes. Right Eye: Blurred Vision, Dryness, Tearing, Itching, Glare or Light Sensitivity, Floaters Left Eye: Blurred Vision, Dryness, Tearing, Itching, Glare or Light Sensitivity, Floaters Visual Aid: Glasses Current Rx Age 2 months Location: Pain: 0 - No pain Quality: Severity: Duration: Timing: Lasts: Context: She reports she has new glasses from 2 months ago. Vision has been blurry at times. The eyes are dry, itchy and tear. When she has the artifical tears with her she uses them twice a day. Sheis sensitive to bright light and glare. She does see some little floaters at times. No flashes or pain in the eyes. Modifying factors: Associated Signs & Symptoms: Attestation: ROS Constitutional: NL ENT/Mouth Cardiovascular: High Blood Pressure Respiratory: Gastrointestinal: Genitourinary: Musculoskeletal: Integumentary: Neurologic: NL Psychiatric: Endocrine: Hematologic: Immunologic: Drug Allergy Momd Teacher: Exposures: None Other: Attestation: Base Eye Exam Visual Acuity (Snellen - Linear) Right Left Dist cc 20/20 -1 20/20 Near cc J1+ J1+ Correction: Glasses Tonometry (Tonopen, 15:34) Right Left Pressure 16 17 Pupils Pupils Dark APD Right PERRL 3 None Left PERRL 3 None Visual Garrett (Counting fingers) Right Left Full Full Extraocular Movement Right Left Full Full Neuro/Psych Oriented x3: Yes Mood/Affect: Normal Dilation Both eyes: Tropicamide 1%, Phenylephrine 2.5% @ 15:35 Slit Lamp and Fundus Exam Slit Lamp Exam Right Left Lids/Lashes Normal Normal Conjunctiva/Sclera White and quiet White and quiet Cornea Clear Clear Anterior Chamber Deep and quiet Deep and quiet Iris Round and reactive Round and reactive Lens Clear Clear Fundus Exam Right Left Vitreous Normal, no cells Normal, no cells Disc Healthy Rim Healthy Rim, spontaneous venous pulsation is present C/D Ratio 0.4 0.4 Macula Normal small PED inferonasal to fovea Vessels Normal Normal Periphery small CHRPE temporal Normal Refraction Wearing Rx Sphere Cylinder Laurel Right -1.00 +0.75 047 Left -1.50 +1.25 138 Type: SVL Manifest Refraction Sphere Cylinder Laurel Dist VA Right -1.00 +0.50 045 20/20 Left -2.00 +1.25 140 20/20 DIAGNOSTIC TESTING/PROCEDURES: OCT, Retina - OU - Both Eyes Indication: Macular degeneration OCT macula: Right: signal strength: 9/10, normal foveal contour, no intra/subretinal fluid Left: signal strength: 9/10, normal foveal contour, small RPE elevation, no intra/subretinal fluid-no change IMPRESSION & PLAN: 1. 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 Dry eye syndrome, both eyes -Discussed contributing factors -Recommend proactive use of artificial tears 2-4 times daily 3. Eye strain Likely early sign of impending presbyopia. Recommend 20-20-20 rule Use artificial tears as above. I have reviewed the patient's past medical, family, social and surgical history. I have also reviewed the patient's medications, allergies, and problem list. I performed my own history and have reviewed the tech's ROS as well. I completed this exam personally. Sha Andrew MD documented in this encounter Plan of Treatment Not on file documented as of this encounter Procedures Procedure Name Priority Date/Time Associated Diagnosis Comments OCT, RETINA - OU - BOTH EYES Routine 01/14/2024 16:04 EDT Retinal pigment epithelial detachment, left documented in this encounter Results * OCT, RETINA - OU - BOTH EYES (01/14/2024 16:04 EDT) Narrative [facility] OPHTHALMOLOGY - 01/14/2024 16:04 EDT Indication: Macular degeneration OCT macula: Right: signal strength: 9/10, normal foveal contour, no intra/subretinal fluid Left: signal strength: 9/10, normal foveal contour, small RPE elevation, no intra/subretinal fluid- no change hSa Andrew MD OPHTH TOMOGRAPHY [facility] OPHTHALMOLOGY documented in this encounter Visit Diagnoses Diagnosis Retinal pigment epithelial detachment, left- Primary Dry eye Tear film insufficiency, unspecified Eye strain Visual discomfort documented in this encounter Historical Medications * This list may reflect changes made after this encounter. Medication Sig Dispensed Refills Start Date End Date vilazodone (VIIBRYD) 20 mg tablet Take 30 mg by mouth daily. added in this encounter Eye Exam Visual Acuity (Snellen - Linear) Right eye Left eye Dist cc 20/20 -1 20/20 Near cc J1+ J1+ Correction: Glasses Tonometry (Tonopen, 15:34) Right eye Left eye Pressure 16 17 Pupils Pupils Dark APD Right eye PERRL 3 None Left eye PERRL 3 None Visual Garrett (Counting fingers) Right eye Left eye Full Full Extraocular Movement Right eye Left eye Full Full Neuro/Psych Oriented x3: Yes Mood/Affect: Normal Dilation Both eyes: Tropicamide 1%, P henylephrine 2.5% @ 15:35 Slit Lamp Exam Right eye Left eye Lids/Lashes Normal Normal Conjunctiva/Sclera White and quiet White and edwardo et Cornea Clear Clear Anterior Chamber Deep and quiet Deep and quiet Iris Round and reactive Round and harjit ctive Lens Clear Clear Fundus Exam Right eye Left eye Posterior Vitreous Normal, no cells Normal, no c ells Disc Healthy Rim Healthy Rim, spo ntaneous venous pulsation is present C/D Ratio 0.4 0.4 Macula Normal small PED infero nasal to fovea Vessels Normal Normal Periphery small CHRPE temporal Normal Wearing Rx Sphere Cylinder Laurel Right eye -1.00 +0.75 047 Left eye -1.50 +1.25 138 Type: SVL Manifest Refraction Sphere Cylinder Laurel Dist VA Right eye -1.00 +0.50 045 20/20 Left eye -2.00 +1.25 140 20/20 Care Teams Spa Director/Finance Relationship Specialty Start Date End Date [address] [place] [phone] PCP - General Family Medicine - Primary Care 11/14/23 Whitley Sage MBBS [address] [place] [address], [address] [place] [address] Consulting Clinician Pulmonary Disease 05/01/22 documented as of this encounter
--- OUTSIDE RECORDS SUMMARY | 2024-07-15 21:46 | XMS_ITS | Encounter Summary ---
Author Organization [facility] Address [address] [place] [address] Care Team Providers Care Performing Arts Road Manager Name Role Phone Whitley Sage Unavailable Diane Way Primary Care Provider [phone] Encounter Details Date Type Department Care Team (Late st Contact Info) Description 02/15/2024 15:20 EDT Phlebotomy Only [facility] - Outpatient Phlebotomy Drawing [address] [place], [place] [id number] Lab, [facility] Op Phlebotomy Hypomagnesemia; Other fatigue; Iron deficiency anemia, unspecified iron deficiency anemia type Social History Tobacco Use Types Packs/Day Years Used Date Smoking Tobacco: Former Cigarettes 1 2013 Smokeless Tobacco: Never Comments:edible marijuana in [...] Yes 05/05/2022 documented as of this encounter Plan of Treatment Not on file documented as of this encounter Procedures Procedure Name Priority Date/Time Associated Diagnosis Comments MAGNESIUM Routine 02/15/2024 15:28 EDT Hypomagnesemia Other fatigue Iron deficiency anemia, unspecified iron deficiency anemia type IRON Routine 02/15/2024 15:28 EDT Hypomagnesemia Other fatigue Iron deficiency anemia, unspecified iron deficiency anemia type FERRITIN Routine 02/15/2024 15:28 EDT Hypomagnesemia Other fatigue Iron deficiency anemia, unspecified iron deficiency anemia type VITAMIN B12 Routine 02/15/2024 15:28 EDT Hypomagnesemia Other fatigue Iron deficiency anemia, unspecified iron deficiency anemia type documented in this encounter Results * VITAMIN B12 (02/15/2024 15:28 EDT) Vitamin B12 841 211 - 911 pg/mL 02/15/2024 18:08 EDT [facility] Blood VENOUS BLOOD / Unknown Venipuncture / Unknown 02/15/2024 15:28 EDT 02/15/2024 15:49 EDT Narrative [facility] - 02/15/2024 18:08 EDT The results of this assay can be falsely elevated due to the consumption of Biotin. Diane Seamus CHEMISTRY & BLOOD GA S ORDERABLES [facility] [address] [place] [address] * FERRITIN (02/15/2024 15:28 EDT) Ferritin 22 11 - 264 ng/mL 02/15/2024 17:53 EDT [facility] Blood VENOUS BLOOD / Unknown Venipuncture / Unknown 02/15/2024 15:28 EDT 02/15/2024 15:49 EDT Narrative [facility] - 02/15/2024 17:53 EDT The results of this assay can be falsely lowered due to the consumption of Biotin. Diane Seamus CHEMISTRY & BLOOD GA S ORDERABLES Performing Organization Address City/[facility]/ZIP Co de Phone Number [facility] [address] [place] [address] * IRON (02/15/2024 15:28 EDT) Iron 101 37 - 170 ??g/dL 02/18/2024 18:36 EDT [facility] Blood VENOUS BLOOD / Unknown Venipuncture / Unknown 02/15/2024 15:28 EDT 02/15/2024 15:49 EDT Diane Seamus CHEMISTRY & BLOOD GA S ORDERABLES Performing Organization Address [facility]/ZIP Co de Phone Number [facility] [address] [place] [phone] * MAGNESIUM (02/15/2024 15:28 EDT) Magnesium 1.8 1.7 - 2.8 mg/dL 02/15/2024 16:20 EDT [facility] Blood VENOUS BLOOD / Unknown Venipuncture / Unknown 02/15/2024 15:28 EDT 02/15/2024 15:49 EDT Diane Seamus CHEMISTRY & BLOOD GA S ORDERABLES Performing Organization Address City/[facility]/ZIP Co de Phone Number [facility] [address] [place] [address] documented in this encounter Visit Diagnoses Diagnosis Hypomagnesemia Disorders of magnesium metabolism Other fatigue Iron deficiency anemia, unspecified iron deficiency anemia type documented in this encounter Care Teams Performing Arts Road Manager Relationship Specialty Start Date End Date Seamus, Diane [address] [place] [phone] PCP - General Family Medicine - Primary Care 11/14/23 Whitley Sage MBBS [address] [place] [address], [address] [place] [address] Consulting Clinician Pulmonary Disease 05/01/22 documented as of this encounter
--- OUTSIDE RECORDS SUMMARY | 2024-07-15 21:46 | XMS_ITS | Encounter Summary ---
Author Organization [facility] [place] [address] Care Team Providers Care Senior Naval Parachutist Name Role Phone Char Alexandre APRN Primary Care Provider + Encounter Details Date Type Department Care Team (Late st Contact Info) Description 07/08/2020 Telephone Obstetrics [place] [phone] Mora Rao RN Social History Tobacco Use Types Packs/Day Years Used Date Smoking Tobacco: Former Smokeless Tobacco: Never Sex and Gender Information Value Date Recorded Sex Assigned at Not on file Gender Identity Female 09/20/2020 2:54 PM EST Sexual Orientation Not on file documented as of this encounter Miscellaneous Notes * Telephone Encounter - Mora Rao RN - 07/08/2020 8:26 AM EDT TELEPHONE NOTE Caller: Elyssa Rao RN Reason for call: Follow-up Assessment: Coordination of appointments Plan/Instructions: Per Dr. Costello patient could have her ultrasound on the same day as her procedure instead of September. Patient called to advise, no answer, left message. documented in this encounter Plan of Treatment Not on file documented as of this encounter Visit Diagnoses Not on filedocumented in this encounter Care Teams Senior Naval Parachutist Relationship Specialty Start Date End Date Char Alexandre APRN PCP - General Family Medicine 8/6/20 11/11/21 documented as of this encounter
--- OUTSIDE RECORDS SUMMARY | 2024-07-15 21:46 | XMS_ITS | Encounter Summary ---
Author Organization [facility] Address [address] [place] [address] Care Team Providers Care Assistant Buyer Name Role Phone Jordan Sagegregbelen WHITMAN Unavailable Diane [address] Primary Care Provider [phone] Reason for Referral * Cardiology (Routine/Next Available) - Closed Specialty Diagnoses / Procedures [facility] Referred To Contact Diagnoses Palpitations Procedures EXTENDED HOLTER MONITOR (7 OR 14 DAY) Dion Jeong MD [address] [place] [address] [place] [address] [facility] Referral ID Status Reason Start Date Expiration Date Visits Re quested Visits Authorized [id number] Closed 11/26/2023 1 1 Reason for Visit * Reason Onset Date Comments Pre-visit Orders 11/26/2023 E-Patch Encounter Details Date Type Department Care Team (Late st Contact Info) Description 11/26/2023 Orders Only [facility] [address] [place] [address] Celia Nuñez RN Palpitations (Primary Dx) Social History Tobacco Use Types Packs/Day Years Used Date Smoking Tobacco: Former Cigarettes 1 10 2 - 2013 Smokeless Tobacco: Never Comments:edible marijuana in [...] of this encounter Plan of Treatment Scheduled Orders Name Type Priority Associated Diagnoses Orde r Schedule EXTENDED HOLTER MONITOR (7 OR 14 DAY) Cardiac Services Routine Palpitations Expected: 12/03/2023 (Approximate), Expires: 11/25/2024 documented as of this encounter Visit Diagnoses Diagnosis Palpitations- Primary documented in this encounter Care Teams Assistant Buyer Relationship Specialty Start Date End Date [address] [place] [phone] PCP - General Family Medicine - Primary Care 11/14/23 Whitley Sage MBBS [address] [place] [address], [address] [place] [address] Consulting Clinician Pulmonary Disease 05/01/22 documented as of this encounter
--- OUTSIDE RECORDS SUMMARY | 2024-07-15 21:46 | XMS_ITS | Encounter Summary ---
Author Organization Formerly [facility] Address [facility] [place] [address] Care Team Providers Care Driver Name Role Phone Char Alexandre APRN Primary Care Provider + Reason for Visit * Reason Comments Colposcopy Encounter Details Date Type Department Care Team (Latest Contact Info) Description 07/21/2020 2:00 PM EST Procedure visit Obstetrics [place] [address] Sofi Irwin MD [facility] OBSTETRICS [place] [address] ASCUS with positive high risk HPV cervical Social History Tobacco Use Types Packs/Day Years Used Date Smoking Tobacco: Former Smokeless Tobacco: Never Sex and Gender Information Value Date Recorded Sex Assigned at Not on file Gender Identity Female 09/20/2020 2:54 PM EST Sexual Orientation Not on file documented as of this encounter Last Filed Vital Signs Vital Sign Reading Time Taken Comments Blood Pressure 139/72 07/21/2020 1:34 PM EST Pulse 91 07/21/2020 1:34 PM EST Temperature - - Respiratory Rate - - Oxygen Saturation - - Inhaled Oxygen Concentration - - Weight - - Height - - Body Mass Index - - documented in this encounter Progress Notes * Sofi Irwin MD - 07/21/2020 2:00 PM ESTAssociated Order(s): CERVICAL DYSPLASIA TREATMENT Post-Procedure Diagnose(s): ASCUS with positive high risk HPV cervical Ms. Connelly is a 35 y.o. P2 here for colposcopy, referred by Dr. Kamille Costello. Her last pap smear showed ASCUS with + HR HPV non 16/18 She is using mirena IUD for menstrual and control. She has not gotten the gardasil vaccine, thought she was too old. She is a former smoker. She denies history of genital warts. She is having stabbing pain in the vagina. Ultrasound done today, ? R arm bent, otherwise nl endometrium, normal ovaries. ??? fexofenadine (PRAVIN) 180 mg Tablet ??? Mag-G 27 mg magnesium (500 mg) Tablet ??? diphenhydramine HCl (UNISOM, DIPHENHYDRAMINE, ORAL) ??? lactobacillus rhamnosus, GG, (CULTURELLE) 10 billion cell Capsule ??? sertraline (ZOLOFT) 100 mg Tablet ??? diphenhydrAMINE (Benadryl) 25 mg Capsule ??? montelukast (Singulair) 10 mg Tablet ??? topiramate (TOPAMAX) 50 mg Tablet ??? omeprazole (PriLOSEC) 40 mg Capsule, Delayed Release(E.C.) ??? ferrous sulfate 325 mg (65 mg iron) Tablet ??? lisinopriL (Prinivil;Zestril) 40 mg Tablet ??? cholecalciferol, Vitamin D3, 50 mcg (2,000 unit) Capsule ??? UNABLE TO FIND ??? acetaminophen (TYLENOL) 650 mg Tablet Sustained Release ??? Eye Itch Relief 0.025 % (0.035 %) Drops ??? melatonin 10 mg Capsule ??? Vitamins B Complex Tablet ??? naproxen (NAPROSYN) 500 mg Tablet ??? cyanocobalamin, Vitamin B-12, (Vitamin B-12) 1,000 mcg Tablet ??? albuteroL 90 mcg/actuation HFA Aerosol Inhaler ??? fluticasone propionate (FLOVENT) 110 mcg/actuation HFA Aerosol Inhaler ??? levonorgestreL (MIRENA) 20 mcg/24 hours (5 yrs) 52 mg IUD ??? CIS Free Text Med - Floxin Immediately prior to the start of the procedure, I confirmed the patient's identity, intended procedure, and insured that the proper equipment was present for the procedure. Consent is obtained. On exam, external genitalia normal. Long graves speculum used, tenaculum placed onto anterior lip of the cervix in order to visualize entire cervix, but visualization was challenging IUD strings long. Vagina and cervix without lesion. Colposcopic evaluation using 5% acetic acid showed faint AWE of p osterior lip; the squamocolumnar junction was not seen. There is no vascular change suggestive of ahigh grade lesion. Phlebotomist Lab Assistant biopsy was done at 5:00 & ECC done. She had some brisk bleeding, difficult to visualize posterior lip after ECC completed, pressure and monsells used. . One of the strings was trimmed. Due to difficulty in visualization could not assess vag side enriquez. 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 . First gardasil injection given, she would like to get the 2nd 2 doses closer to home at her PCP's office, which would be due in 2 and 6 months. (Sep and January) Briefly reviewed ultrasound result, discussed Dr. Costello would probably be in touch as well. Probable pap smear follow up. If unexpected CAROLEE would need operative treatment due to difficulty positioning and seeing in the office. CERVICAL DYSPLASIA TREATMENT Date/Time: 07/21/2020 2:21 PM Performed by: Sofi Irwin MD Authorized by: Sofi Irwin MD Procedure: Procedure: Colposcopy w/ cervical biopsy and ECC documented in this encounter Plan of Treatment Not on file documented as of this encounter Procedures Procedure Name Priority Date/Time Associated Diagnosis Comments SPECIMEN TO PATHOLOGY Routine 07/21/2020 2:14 PM EST ASCUS with positive high risk HPV cervical SPECIMEN TO PATHOLOGY Routine 07/21/2020 2:14 PM EST ASCUS with positive high risk HPV cervical COLPOSC,CERVIX W/ADJ VAG,W/BX & CURRETAG PRFM Routine 07/21/2020 2:00 PM EST ASCUS with positive high risk HPV cervical SURGICAL PATHOLOGY REPORT Routine 07/21/2020 2:00 PM EST documented in this encounter Results * Specimen to Pathology (07/21/2020 2:14 PM EST) AP Specimen 07/21/2020 2:14 PM EST 07/21/2020 2:14 PM EST Narrative [facility] - 07/21/2020 2:14 PM EST Specimen requisition ordered. ??Separate Pathology report to follow Sofi Irwin MD PATHOLOGY/CYTOLOGY ORDERABLES Performing Organization Address [facility]/ZIP Co de Phone Number [facility] [place] [address] * Specimen to Pathology (07/21/2020 2:14 PM EST) AP Specimen 07/21/2020 2:14 PM EST 07/21/2020 7:34 PM EST Narrative [facility] - 07/21/2020 7:34 PM EST Specimen requisition ordered. ??Separate Pathology report to follow Resulting Agency Comment Spec In Lab Sofi Irwin MD PATHOLOGY/CYTOLOGY ORDERABLES Performing Organization Address [facility] Co de Phone Number [facility] [place] [address] * COLPOSC,CERVIX W/ADJ VAG,W/BX & CURRETAG PRFM (07/21/2020 2:00 PM EST) Narrative Sofi Irwin MD - 07/21/2020 2:00 PM EST Sofi Irwin MD ? 07/21/2020 ??2:23 PM CERVICAL DYSPLASIA TREATMENT Date/Time: 07/21/2020 2:21 PM Performed by: Sofi Irwin MD Authorized by: Sofi Irwin MD Procedure: ??Procedure: Colposcopy w/ cervical biopsy and ECC ?? Sofi Irwin MD OB GYNE ORDERABLES * Surgical Pathology Report (07/21/2020 2:00 PM EST) Final Diagnosis [id number] ? Location: 5L The signing pathologist has (i) examined the relevant preparation(s) for the specimen(s) and (ii) rendered or confirmed the diagnosis(es). . ?Surgical Pathology DIAGNOSIS A- Endocervical curettings: Detached ??fragments of HSIL (CAROLEE II-III) intermixed with endocervical mucosa, mucus and blood clot. B- ??Cervical biopsy at 5 o'clock: Atypical metaplastic squamous mucosa with chronic inflammation, no definite dysplasia or HPV effect. Electronically signed by: ??Payton GONZALEZ, Darlene Rosenbaum Verified: ??08/02/2020 ?Pathologist Performed at: ??-[facility] Dept. of Pathology, [place], [place] DISCUSSION B - Multiple step levels were examined. ADDITIONAL STUDIES Immunohistochemistry Studies: Formalin-fixed, paraffin-embedded tissue sections are studied using the polymer technique with appropriate positive and negative controls. ?These IHC studies provide the pathologist with adjunctive diagnostic information. Antibody specificity has been verified by testing antibodies on a series of in-house tissues with known immunohistochemical performance characteristics. The clinical interpretation of any antibody positive staining or its absence is evaluated within the context of clinical presentation, morphology, histopathological criteria and other diagnostic tests. Block ? Antibody ?Result (Positive/Negative) A1 ?p16 ?Strong, diffuse SPECIMEN(S) SUBMITTED A - cervix - ECC, curetting (1) B - cervix - bx @ 5, biopsy (1) CLINICAL INFORMATION ASCUS with + HR HPV non-16/18 SPECIMEN PROCESSING A - Labeled/Fixative: ECC, formalin. Quantity/Size: ??Fragments, collectively 1.2 x 0.8 x 0.1 cm. Tissue Description: Red brown hemorrhagic tissue and mucus. Sections/Processing: Submitted en toto ??in 1 cassette labeled A1. B - Labeled/Fixative: BX at 5 o'clock, formalin. Quantity/Size: Single, 0.5 x 0.3 cm. Tissue Description: Soft, barbosa-white tissue. Sections/Processing: Submitted en toto ??in 1 cassette labeled B1. ??MLL 08/02/2020 1:51 PM EST [facility] SPECIMEN FROM CERVIX OR VAGINA / Unknown 07/21/2020 2:00 PM EST 07/21/2020 2:00 PM EST SPECIMEN FROM CERVIX OR VAGINA / Unknown 07/21/2020 2:00 PM EST 07/21/2020 2:00 PM EST Sofi Irwin MD PATHOLOGY/CYTOLOGY ORDERABLES [facility] [place] [phone] documented in this encounter Visit Diagnoses Diagnosis ASCUS with positive high risk HPV cervical documented in this encounter Care Teams Driver Relationship Specialty Start Date End Date Char Alexandre APRN PCP - General Family Medicine 04/22/20 07/28/21 documented as of this encounter
--- OUTSIDE RECORDS SUMMARY | 2024-07-15 21:46 | XMS_ITS | Encounter Summary ---
Author Organization [facility] Address [address] [place] [address] Care Team Providers Care Pole Setter Name Role Phone TameraluisaJordan heathgregbelen WHITMAN Unavailable SeamusDiane Primary Care Provider [phone] Encounter Details Date Type Department Care Team (Latest Contact Info) Description 11/16/2023 Transcribe Orders [facility] - Outpatient Phlebotomy Drawing [address] [place] [address] [place] [address] Iron deficiency anemia, unspecified iron deficiency anemia type (Primary Dx); Hypomagnesemia Social History Tobacco Use Types Packs/Day Years [...] Priority Date/Time Associated Diagnosis Comments MAGNESIUM Routine 12/03/2023 12:15 EDT Iron deficiency anemia, unspecified iron deficiency anemia type Hypomagnesemia FERRITIN Routine 12/03/2023 12:15 EDT Iron deficiency anemia, unspecified iron deficiency anemia type Hypomagnesemia COMPREHENSIVE METABOLIC PANEL (CMP) Routine 12/03/2023 12:15 EDT Iron deficiency anemia, unspecified iron deficiency anemia type Hypomagnesemia documented in this encounter Results * MAGNESIUM (12/03/2023 12:15 EDT) Magnesium 1.7 1.7 - 2.8 mg/dL 12/03/2023 14:06 EDT [facility] Blood VENOUS BLOOD / Unknown Venipuncture / Unknown 12/03/2023 12:15 EDT 12/03/2023 12:49 EDT Diane Seamus CHEMISTRY & BLOOD GA S ORDERABLES Performing Organization Address City/State/[facility] Co de Phone Number [facility] [address] [place] [address] * COMPREHENSIVE METABOLIC PANEL (CMP) (12/03/2023 12:15 EDT) Sodium 136 136 - 145 mmol/L 12/03/2023 14:06 EDT [facility] Potassium 4.3 3.5 - 5.0 mmol/L 12/03/2023 14:06 EDT [facility] Chloride 103 96 - 110 mmol/L 12/03/2023 14:06 EDT [facility] CO2 Total 24 22 - 32 mmol/L 12/03/2023 14:06 T [facility] Glucose 80 70 - 99 mg/dl 12/03/2023 14:06 [facility] BUN 16 10 - 26 mg/dL 12/03/2023 14:06 [facility] Creatinine 0.82 0.52 - 1.04 mg/dL 12/03/2023 14:06 [facility] eGFR 94 >60 mL/min/1.7 3m2 12/03/2023 14:06 [facility] Total Protein 7.5 6.3 - 8.2 g/dL 12/03/2023 14:06 [facility] Albumin 4.2 3.4 - 4.9 g/dL 12/03/2023 14:06 [facility] Alkaline Phosphatase 67 38 - 126 U/L 12/03/2023 14:06 [facility] AST 16 15 - 46 U/L 12/03/2023 14:06 [facility] ALT 14 <35 U/L 12/03/2023 14:06 [facility] Bilirubin, Total <0.5 <1.4 mg/dL 12/03/19 14:06 [facility] Calcium 9.6 8.5 - 10.5 mg/dL 12/03/2023 14:06 [facility] Albumin/Globulin Ratio 1.3 1.0 - 2.5 12/03/2023 14:06 [facility] Anion Gap 9 5 - 14 mmol/L 12/03/2023 14:06 [facility] Blood VENOUS BLOOD / Unknown Venipuncture / Unknown 12/03/2023 12:15 EDT 12/03/2023 12:49 EDT Diane Seamus CHEMISTRY & BLOOD GA S ORDERABLES [facility] [address] [place] [address] * FERRITIN (12/03/2023 12:15 EDT) Ferritin 21 11 - 264 ng/mL 12/03/2023 19:59 [facility] Blood VENOUS BLOOD / Unknown Venipuncture / Unknown 12/03/2023 12:15 EDT 12/03/2023 12:49 EDT Narrative [facility] - 12/03/2023 19:59 EDT The results of this assay can be falsely lowered due to the consumption of Biotin. Diane Way CHEMISTRY & BLOOD GA S ORDERABLES [facility] [address] [place] [address] documented in this encounter Visit Diagnoses Diagnosis Iron deficiency anemia, unspecified iron deficiency anemia type- Primary Hypomagnesemia Disorders of magnesium metabolism documented in this encounter Care Teams Pole Setter Relationship Specialty Start Date End Date [address] [place] [id number] PCP - General Family Medicine - Primary Care 11/14/23 Whitley Sage MBBS [address] [facility] [place] [address] Consulting Clinician Pulmonary Disease 05/01/22 documented as of this encounter
--- OUTSIDE RECORDS SUMMARY | 2024-07-15 21:46 | XMS_ITS | Encounter Summary ---
Author Organization [facility] Address [facility] [place] [address] Care Team Providers Care Stoner Hand Name Role Phone Char Alexandre APRN Primary Care Provider + Encounter Details Date Type Department Care Team (Late st Contact Info) Description 07/01/2020 Telephone Obstetrics [place] [phone] Arlene Costello MD [facility] DR OBSTETRICS & [place] [address] Social History Tobacco Use Types Packs/Day Years Used Date Smoking Tobacco: Former Smokeless Tobacco: Never Sex and Gender Information Value Date Recorded Sex Assigned at Not on file Gender Identity Female 09/20/2020 2:54 PM EST Sexual Orientation Not on file documented as of this encounter Miscellaneous Notes * Telephone Encounter - Arlene Costello - 07/01/2020 3:40 PM EDT Cecilia??is a 35 y.o.?female with PMhx notable for HTN, pre-diabetes, morbid obesity, MEY,GERD, PTSD, insomnia, anxiety/depression, chronic low back pain and iron deficiency anemia, who wasseen on 06/11 for Gynecologic consultation of abnormal uterine bleeding. At that visit, EMB collected and Mirena IUD inserted. Called Cecilia today to share results of pap smear, ASC-US HR HPV other positive (HPV 16/18 negative). Las pap smear was 03/2015 and NILM HR HPV negative. Per ASCCP guidelines, colposcopy is recommended. Cecilia voiced understanding, all questions answered. Secretaries messaged to schedule. Of note, she has not yet received HPV vaccine. Would offer at next visit. Arlene Costello MD PGY4 07/01/20 documented in this encounter Plan of Treatment Not on file documented as of this encounter Visit Diagnoses Not on filedocumented in this encounter Care Teams Stoner Hand Relationship Specialty Start Date End Date Char Alexandre, MUMTAZ PCP - General Family Medicine 04/22/20 07/28/21 documented as of this encounter
--- OUTSIDE RECORDS SUMMARY | 2024-07-15 21:46 | XMS_ITS | Encounter Summary ---
Author Organization [facility] [place] [address] Care Team Providers Care Auto Clutch Rebuilder Name Role Phone Char Alexandre APRN Primary Care Provider + Encounter Details Date Type Department Care Team (Late st Contact Info) Description 09/21/2020 Telephone Obstetrics [place] [address] Radha Estrada, RN Social History Tobacco Use Types Packs/Day Years Used Date Smoking Tobacco: Former Smokeless Tobacco: Never Sex and Gender Information Value Date Recorded Sex Assigned at Not on file Gender Identity Female 09/20/2020 2:54 PM EST Sexual Orientation Not on file documented as of this encounter Miscellaneous Notes * Telephone Encounter - Radha Estrada RN - 09/21/2020 4:02 PM EST Spoke to patient who was curious how long she would need to be out of work Following LEEP tomorrow.Let patient know woman can typically go back to work the following day. Patient had no further questions. Will call with any questions or concerns. ----- Message from Rama Dawn sent at 09/21/2020 2:29 PM EST ----- Regarding: johnson Caller's name:Cecilia Call back #: [phone] Patient's provider/team: Reason for call: Cecilia has questions about recovery for the procedure she is having tomorrow. Can you please call her? Thank you, Rama documented in this encounter Plan of Treatment Not on file documented as of this encounter Visit Diagnoses Not on filedocumented in this encounter Care Teams Auto Clutch Rebuilder Relationship Specialty Start Date End Date Char Alexandre APRN PCP - General Family Medicine 04/22/20 07/28/21 documented as of this encounter
--- OUTSIDE RECORDS SUMMARY | 2024-07-15 21:46 | XMS_ITS | Encounter Summary ---
Author Organization [facility] [place] [address] Care Team Providers Care Communications Equipment Operator Name Role Phone Char Alexandre APRN Primary Care Provider + Encounter Details Date Type Department Care Team (Late st Contact Info) Description 09/24/2020 Telephone [place]stetrics [place] [address] Radha Estrada, RN Social History [...] Telephone Encounter - Radha Estrada RN - 09/24/2020 2:40 PM EST Spoke to patient who reports she is due for her second dose of the HPV vaccine, was hoping to do itat her PCPs office but when she called to schedule they told her that they would not do the second HPV vaccine so close to her receiving the vaccine for covid. Discussed with Dr. Jackson who felt that it would be fine for her to get the second dose of HPV now, regardless of also getting the covid vaccine or it would also be fine for her to wait a few months when her providers office was comfortable giving it and she would not have to restart the series, twodoses would be sufficient. Offered to give second dose here at [facility], patient declined due to the drive. Will call PCPs office back to discuss it with them further. ----- Message from Radha Estrada RN sent at 09/24/2020 2:26 PM EST ----- ----- Message ----- From: Sara Tee Sent: 09/24/2020 2:05 PM EST To: [facility] Gang Mower Operator Triage Nurse Had her first round of HPV on 07/21. Was told she needs to come in for her 2nd dose soon, but she got her COVID vaccine, and was advised that she shouldn't get her 2nd one until November? Can someone clarify with the patient? Can be reached at the home number Sara documented in this encounter Plan of Treatment Not on file documented as of this encounter Visit Diagnoses Not on filedocumented in this encounter Care Teams Communications Equipment Operator Relationship Specialty Start Date End Date Char Alexandre, BUILDING GUARD DEPUTY SHERIFF PCP - General Family Medicine 04/22/20 07/28/21 documented as of this encounter
--- OUTSIDE RECORDS SUMMARY | 2024-07-15 21:46 | XMS_ITS | Encounter Summary ---
Author Organization [facility] Address [facility] [place] [address] Care Team Providers Care Senior Economist Name Role Phone Char Alexandre APRN Primary Care Provider + Encounter Details Date Type Department Care Team (Latest Contact Info) Description 07/21/2020 9:36 AM EST - 07/21/2020 11:59 PM EST Hospital [place] [address] Kandi Reyes MD [facility] [place] [address] Abnormal uterine bleeding (AUB) Discharge Disposition: Home [...] Sig Dispensed Refills Start Date End Date polyethylene glycoL (Miralax) 17 gram/dose Powder MIX [...] Floxin 3 Drop(s), AU, Otic, TID 04/16/2001 modafiniL (Provigil) 100 mg Tablet TAKE 1 TABLET BY MOUTH ONCE DAILY 07/01/2020 02/20/2023 sertraline (ZOLOFT) 100 mg Tablet 50 mg. Half tab once a day 05/12/2020 02/20/2023 topiramate (TOPAMAX) 50 mg Tablet TAKE 1 TABLET BY MOUTH TWICE DAILY 05/02/2020 02/20/2023 cyanocobalamin, Vitamin B-12, (Vitamin B-12) 1,000 mcg Tablet TAKE 1 TABLET BY MOUTH ONCE DAILY 02/16/2020 09/21/2020 fluticasone propionate (FLOVENT) 110 mcg/actuation HFA Aerosol Inhaler Inhale 1 puff into the lungs 2 times daily. 02/20/2023 levonorgestreL (MIRENA) 20 mcg/24 hours (5 yrs) 52 mg IUD 1 each by Intrauterine route Continuous (Device). Expected removal date 05/202709/22/2020 documented as of this encounter Plan of Treatment Not on file documented as of this encounter Procedures Procedure Name Priority Date/Time Associated Diagnosis Comments US TRANSVAGINAL NON OB Routine 07/21/2020 10:51 AM EST Abnormal uterine bleeding (AUB) documented in this encounter Results * US Transvaginal Non OB (07/21/2020 10:51 AM EST) Anatomical Region Laterality Modality Ultrasound 07/21/2020 10:0 8 AM EST Impressions 07/21/2020 11:24 AM EST ?? Study limited due to patient body habitus. Next visualized segments of the endometrial stripe are normal measuring 2.6 mm. Normal ovaries. Findings are worrisome for right transverse IUD arm protruding into the myometrium. Remainder of the IUD position, albeit intrauterine, cannot be further elucidated. Findings called to Dr. Kandi Reyes at 11h15. Thank you for letting us participate in the care of this patient. For questions regarding this report, please contact the number below. Electronically signed by: Zahra Chappell MD, [facility] ([phone]), at 07/21/2020 11:17 AM ?Zahra Chappell, [employer] Supervisor Electronically Signed Final Report ?? 07/21/2020 11:24 am Narrative 07/21/2020 11:24 AM EST Gynecological Report ?(Signed Final 07/21/2020 11:24 am) PATIENT INFO: ID #: ? [id number] ?: ??[birth year] (35 yrs)(F) Name: ? CECILIA Remy CONNELLY ?Visit Date: 07/21/2020 10:08 am PERFORMED BY: Performed By: ? Dorothy Ojeda RDMS Attending: ?Ta GONZALEZ, Zahra Espino Referred By: ?KANDI REYES Location: ? [facility] SERVICE(S) PROVIDED: ??UTV - Transvaginal - [id number] ?[id number] ??U3D - ??3D rendering with interpretation - [id number] ? [id number] ??UPEL - Pelvis Complete - [id number] ?[id number] INDICATIONS: ??AUB; History of: Abnormal bleeding TECHNIQUE/SCAN QUALITY: Technique: ?Transducer ID#: [id number] Scan Quality: ?? Limited visualization due to patient ? body habitus COMPARISON: No prior studies for comparison. -------- HISTORY: -------- Age: ?? 35 Hormone Treatment: ? Mirena x 1 month per patient ------- UTERUS: ------- Uterus: ? Visualized Position: ?? Anteverted Size (cm) ?L: ??10.9 ?W: ?? 6.8 ?H: ??5.1 ENDOMETRIUM: Endometrium: ?Normal appearance Thickness(mm): ?2.61 Comment: ? 3D rendering with interpretation was performed ?for IUD placement. ------- CERVIX: ------- Multiple nabothian cysts seen RIGHT OVARY: Status: ?? Visualized Size (cm) ?L: ??3.5 ? W: ?? 2.5 ?H: ??1.6 Vol (ml): ?7.7 Morphology: ?Normal appearance Comment: ? Ovary was not seen transvaginally, therefore ?transabdominal ultrasound was performed. LEFT OVARY: Status: ?? Visualized Size (cm) ?L: ??3.5 ? W: ?? 2.6 ?H: ??1.2 Vol (ml): ?5.7 Morphology: ?Normal appearance Comment: ? Ovary was not seen transvaginally, therefore ?transabdominal ultrasound was performed. Procedure Note Zahra Chappell MD - 07/21/2020 Gynecological Report (Signed Final 07/21/2020 11:24 am) PATIENT INFO: ID #: [id number] : [birth year] (35 yrs)(F) Name: CECILIA CONNELLY Visit Date: 07/21/2020 10:08 am PERFORMED BY: Performed By: Dorothy Ojeda RDMS Attending: Zahra Chappell MD Referred By: KANDI REYES Location: [facility] SERVICE(S) PROVIDED: UTV - Transvaginal - [id number] U3D - 3D rendering with interpretation - [id number] UPEL - Pelvis Complete - [id number] INDICATIONS: AUB; History of: Abnormal bleeding TECHNIQUE/SCAN QUALITY: Technique: Transducer ID#: [id number] Scan Quality: Limited visualization due to patient body habitus COMPARISON: No prior studies for comparison. -------- HISTORY: -------- Age: 35 Hormone Treatment: Mirena x 1 month per patient ------- UTERUS: ------- Uterus: Visualized Position: Anteverted Size (cm) L: 10.9 W: 6.8 H: 5.1 ENDOMETRIUM: Endometrium: Normal appearance Thickness(mm): 2.61 Comment: 3D rendering with interpretation was performed for IUD placement. ------- CERVIX: ------- Multiple nabothian cysts seen RIGHT OVARY: Status: Visualized Size (cm) L: 3.5 W: 2.5 H: 1.6 Vol (ml): 7.7 Morphology: Normal appearance Comment: Ovary was not seen transvaginally, therefore transabdominal ultrasound was performed. LEFT OVARY: Status: Visualized Size (cm) L: 3.5 W: 2.6 H: 1.2 Vol (ml): 5.7 Morphology: Normal appearance Comment: Ovary was not seen transvaginally, therefore transabdominal ultrasound was performed. IMPRESSION Study limited due to patient body habitus. Next visualized segments of the endometrial stripe are normal measuring 2.6 mm. Normal ovaries. Findings are worrisome for right transverse IUD arm protruding into the myometrium. Remainder of the IUD position, albeit intrauterine, cannot be further elucidated. Findings called to Dr. Kandi Reyes at 11h15. Thank you for letting us participate in the care of this patient. For questions regarding this report, please contact the number below. Electronically signed by: Zahra Chappell MD, [facility] ([phone]), at 07/21/2020 11:17 AM Zahra Chappell, [employer] Supervisor Electronically Signed Final Report 07/21/2020 11:24 am Kandi Reyes MD IMG US PELVIC ORDERA BLES documented in this encounter Visit Diagnoses Diagnosis Abnormal uterine bleeding (AUB) documented in this encounter Care Teams Senior Economist Relationship Specialty Start Date End Date Char Alexandre APRN PCP - General Family Medicine 04/22/20 07/28/21 documented as of this encounter
--- OUTSIDE RECORDS SUMMARY | 2024-07-15 21:46 | XMS_ITS | Encounter Summary ---
Author Organization [facility] [place] [address] Care Team Providers Care Marketing Pr Intern Name Role Phone Char Alexandre APRN Primary Care Provider + Encounter Details Date Type Department Care Team (Late st Contact Info) Description 09/13/2020 Telephone Obstetrics [place] [address] Mora Rao RN Social History Tobacco Use Types Packs/Day Years Used Date Smoking Tobacco: Former Smokeless Tobacco: Never Sex and Gender Information Value Date Recorded Sex Assigned at Not on file Gender Identity Female 09/20/2020 2:54 PM EST Sexual Orientation Not on file documented as of this encounter Miscellaneous Notes * Telephone Encounter - Mora Rao RN - 09/13/2020 11:03 AM EST TELEPHONE NOTE Caller: Mora Rao RN Reason for call: Per Dr. Hunt: RN call her on Sunday to check in and determine whether she should be seen for pelvic exam or ultrasound prior to planned LEEP on 09/22/2019. Assessment: Patient wants her IUD out because of all the discomfort, burning, pinching. However, she knows it's embedded in the myometrium. Cecilia is wondering if she could have it removed before her LEEP scheduled on 09/22/[address] Blair. Plan/Instructions: Will consult with Dr. Blair and will return call to patient. ----- Message from Rama Dawn sent at 09/13/2020 9:31 AM EST ----- Regarding: Gilbert Caller's name: Cecilia Call back #: [phone] Patient's provider/team: Reason for call: tried to return your call documented in this encounter Plan of Treatment Not on file documented as of this encounter Visit Diagnoses Not on filedocumented in this encounter Care Teams Marketing Pr Intern Relationship Specialty Start Date End Date Char Alexandre APRN PCP - General Family Medicine 04/22/20 07/28/21 documented as of this encounter
--- OUTSIDE RECORDS SUMMARY | 2024-07-15 21:46 | XMS_ITS | Encounter Summary ---
Author Organization [facility] Address [facility] [place] [address] Care Team Providers Care Sharepoint Solutions Developer Name Role Phone Char Alexandre APRN Primary Care Provider + Reason for Visit * Auth/Cert Specialty Diagnoses / Procedures Referred By Contac t Referred To Contact Diagnoses Cervical dysplasia CERVICAL DYSPLASIA Procedures PRO CONIZATION CERVIX W/WO D&C RPR ELECTRODE EXCISION CONIZATION OF CERVIX, LOOP ELECTRODE (WRVU 3.67) Referral ID Status Reason Start Date Expiration Date Visits Re quested Visits Authorized [id number] 1 1 Encounter Details Date Type Department Care Team ([facility] Contact Info) Description 09/22/2020 9:28 AM EST - 09/22/2020 10:40 AM EST Surgery [place] [address] Jennifer Blair MD [facility] [address] OBSTETRICS [place] [address] CONIZATION OF CERVIX, LOOP ELECTRODE (WRVU 3.67) Social History Tobacco Use Types Packs/Day Years [...] Sign Reading Time Taken Comments Blood Pressure 140/80 09/22/2020 8:50 AM EST Pulse 82 09/22/2020 8:50 AM EST Temperature 36.8 ??C (98.2 ??F) 09/22/2020 8:50 AM ES T Respiratory Rate 16 09/22/2020 8:50 AM EST Oxygen Saturation 100% 09/22/2020 8:50 AM EST Inhaled Oxygen Concentration - - Weight 183.7 kg (404 lb 14.4 oz) 09/22/2020 8:50 AM EST Height 163.8 cm (5' 4.5) 09/22/2020 8:50 AM EST Body Mass Index 68.43 09/22/2020 8:50 AM EST documented in this encounter Discharge Instructions * Discharge Instructions* Adina Salas RN - 09/22/2020 12:01 PM EST Next dose of acetaminophen (tylenol) can be taken at . Next dose of ibuprofen (motrin) can be taken at . * Patient Instructions* Vannessa Cary - 09/22/2020 8:59 AM EST PATIENT DISCHARGE INSTRUCTIONS Please call our office at [phone] with any problems or concerns. Future Appointments Date Time Provider Department Center 10/27/2020 2:20 PM Arlene Costello MD [facility] [place] [facility] [place] your doctor if you develop: ?? A fever over 101 degrees ?? Severe pain that does not get better after you take pain medicine. ?? Heavy vaginal bleeding (bright red bleeding that soaks 1 or more pads each hours x 2 or more hours or passing blood clots that are larger than a golf ball) ?? Vaginal discharge that smells bad ?? Increasing pain, redness, or discharge Activity level: ?? Most women are able to return to work the day after the procedure ?? You may have some light vaginal bleeding. Wear sanitary pads if needed. Do not douche or use tampons for 2 weeks or until your doctor says it is okay. Diet: ?? You can eat your normal diet. If your stomach is upset, try bland, low-fat foods like plain rice, broiled chicken, toast, and yogurt. ?? Drink plenty of fluids (unless your doctor tells you not to). ?? You may want to use a stool softener such as Colace twice daily and Metamucil or Citrucel once or twice daily to keep your bowel movements soft and regular. Medications: ?? Ibuprofen 600mg by mouth every 6 hours as needed for cramping ?? Acetaminophen 650mg every 6 hours as needed ?? If the doctor gave you a prescription medicine for pain, take it as prescribed. ?? Do not take two or more pain medicines at the same time unless the doctor told you to. Many painmedicines have acetaminophen, which is Tylenol. Too much acetaminophen (Tylenol) can be harmful. Driving: ?? Do not drive until you are off of all narcotic medications and you are not feeling pain. Shower/Bath: ?? Showering is fine. Follow-up care is a broderick part of your treatment and safety. Be sure to make and go to all appointments, and call your doctor if you are having problems. It???salso a good idea to know your test results and keep a list of the medicines you take. documented in this encounter Medications at Time of Discharge Medication Sig Dispensed Refills Start Date End Date ibuprofen (Advil;Motrin) 800 mg Tablet Take 1 [...] daily. 02/20/2023 documented as of this encounter Progress Notes * Sherry Pittman RN - 09/22/2020 12:30 PM EST Assumed care of patient at 1220, handoff report received from IVAN Velazquez, who said patient is ready for discharge. Pt reporting 5/10 pain which she stated was tolerable, and she stated that she is ready to go home.No n/v present. Pt reported minimal spotting on pad at this time. AVS reviewed with pt and grandmother, all questions answered and understanding verbalized. documented in this encounter H&P Notes * Vannessa Cary - 09/22/2020 8:54 AM EST Gynecology H & P History of Present Illness: Cecilia is a 35-year-old with a past medical history inclusive of hypertension, GERD, obesity,prediabetes, chronic low back pain, depression, MEY who presented with menorrhagia and dysmenorrheain May 2020. At that visit an endometrial biopsy was collected and a Mirena IUD placed. Endometrial biopsy was benign. Pap smear was also collected and showed ASCUS/other HR HPV positive. She was then referred for colposcopy, which showed HSIL on ECC and LEEP was recommended. Since the placement of her Mirena IUD, she reports sharp stabbing pain, and underwent transvaginal ultrasound, whichshowed possible infiltration of the right arm of the Mirena into the myometrium. She requests to have this removed at this time. Plan to proceed today with a LEEP/IUD removal. She is not in need of further contraception, as she has had a tubal ligation in the past. Review of Systems: Review of Systems Constitutional: Negative for activity change, fatigue and fever. Respiratory: Negative for cough, shortness of breath and wheezing. Cardiovascular: Negative for chest pain, palpitations and leg swelling. Gastrointestinal: Negative for abdominal pain, nausea and vomiting. Genitourinary: Negative for pelvic pain and vaginal bleeding. Neurological: Negative for dizziness and headaches. Past Medical and Surgical History: Past Medical History: Diagnosis Date ??? Anemia ??? Carpal tunnel syndrome ??? Chronic headaches ??? Depression with anxiety ??? GERD (gastroesophageal reflux disease) ??? Hypertension ??? Insomnia ??? Low back pain ??? Obesity ??? Prediabetes ??? PTSD (post-traumatic stress disorder) ??? Sleep apnea CPAP ??? Urolithiasis Past Surgical History: Procedure Laterality Date ??? SECTION 2014 ??? SECTION 2015 ??? TONSILLECTOMY ??? TUBAL LIGATION 2016 salpingectomy ??? TYMPANOSTOMY TUBE PLACEMENT Past Obstetric History: OB History Para Term AB Living 2 2 0 2 0 2 SAB TAB Ectopic Multiple Live Births 0 0 0 0 2 Past Gynecologic History: No LMP recorded (lmp unknown). Menarche as above. ?? Not currently sexually active with one male partner. Severe dyspareunia with insertion since 2014, uses lubrication with some improvement. No post-coital bleeding. No problems with sexual function. ?? No history of STDs. No new sexual partners. ?? Last pap smear 03/2015, NILM HR HPV negative (OSH, results in scanned documents). She has no historyof abnormal paps. HPV vaccine - did not receive ?? Mother with the start of ovarian cancer Maternal great aunt with breast cancer. Denies??family history of uterine, colon, stomach, pancreatic cancers. No current facility-administered medications on file prior to encounter. Current Outpatient Medications on File Prior to Encounter Medication Sig Dispense Refill ??? glucosam/chond/collagen/hyalur (JOINT SUPPORT ORAL) Take 3 tablets by mouth nightly. ??? folic acid (FOLVITE) 800 mcg Tablet Take 400 mcg by mouth daily. ??? modafiniL (Provigil) 100 mg Tablet TAKE 1 TABLET BY MOUTH ONCE DAILY ??? fexofenadine (PRAVIN) 180 mg Tablet TAKE 1 TABLET BY MOUTH ONCE DAILY ??? Mag-G 27 mg magnesium (500 mg) Tablet TAKE 3 TO 4 TABLETS BY MOUTH TWICE DAILY ??? diphenhydramine HCl (UNISOM, DIPHENHYDRAMINE, ORAL) Take by mouth. ??? lactobacillus rhamnosus, GG, (CULTURELLE) 10 billion cell Capsule Take 1 capsule by mouth daily. ? ? sertraline (ZOLOFT) 100 mg Tablet TAKE 1 & 1 2 (ONE & ONE HALF) TABLETS BY MOUTH ONCE DAILY (DOSE INCREASE) ??? montelukast (Singulair) 10 mg Tablet TAKE [...] exceed 6 tabs in 24 hours ??? melatonin 10 mg Capsule TAKE 1 [...] into the lungs 2 times daily. ??? polyethylene glycoL (Miralax) 17 gram/dose Powder MIX 17 GRAMS OF POWDER IN 8 OUNCES OF LIQUID AND DRINK ONCE DAILY TAKE NEEDED ??? diphenhydrAMINE (Benadryl) 25 mg Capsule Take 25 mg by mouth every 6 hours as needed for Itching. ??? UNABLE TO FIND Med Name: immunity boost; apple cider vinegar + keto ??? Eye Itch Relief 0.025 % (0.035 %) Drops INSTILL 1 DROP INTO EACH EYE TWICE DAILY ??? levonorgestreL (MIRENA) 20 mcg/24 hours (5 yrs) 52 mg IUD 1 each by Intrauterine route Continuous (Device). Expected removal date 05/2027 ??? CIS Free Text Med - Floxin 3 Drop(s), AU, Otic, TID Allergies: No Known Allergies Family History: Family History Problem Relation Age of Onset ??? Ovarian Cancer Mother 25 Start of ovarian cancer ??? Bladder Cancer Maternal Grandfather ??? Breast Cancer Other ??? Uterine Cancer Neg Hx ??? Colorectal Cancer Neg Hx ??? Pancreatic Cancer Neg Hx ??? Stomach Cancer Neg Hx Social History and Habits: Social History Socioeconomic History ??? Marital status: Spouse name: Not on file ??? Number of children: Not on file ??? Years of education: Not on file ??? Highest education level: Not on file Occupational History ??? Not on file Social Needs ??? Financial resource strain: Not on file ??? Food insecurity Worry: Not on file Inability: Not on file ??? Transportation needs Medical: Not on file Non-medical: Not on file Tobacco Use ??? Smoking status: Former Smoker ??? Smokeless tobacco: Never Used Substance and Sexual Activity ??? Alcohol use: Not Currently ??? Drug use: Never ??? Sexual activity: Not on file Lifestyle ??? Physical activity Days per week: Not on file Minutes per session: Not on file ??? Stress: Not on file Relationships ??? Social connections Talks on phone: Not on file Gets together: Not on file Attends nondenominational service: Not on file Active member of club or organization: Not on file Attends meetings of clubs or organizations: Not on file Relationship status: Not on file ??? Intimate partner violence Fear of current or ex partner: Not on file Emotionally abused: Not on file Physically abused: Not on file Forced sexual activity: Not on file Other Topics Concern ??? Not on file Social History Narrative ??? Not on file Immunizations: Immunization History Administered Date(s) Administered ??? HPV, 9-Valent 07/21/2020 Physical Exam: Last Set of Vitals: Last value Range last 24 hrs Temperature Temp: -- Heart Rate Heart Rate: -- Blood Pressure BP: -- Respiratory Rate Resp: -- SpO2 SpO2: -- Physical Exam Constitutional: She is oriented to person, place, and time. She appears well- developed and well-nourished. No distress. Cardiovascular: Normal rate, regular rhythm and normal heart sounds. Exam reveals no gallop and no friction rub. No murmur heard. Pulmonary/Chest: Effort normal and breath sounds normal. Abdominal: Soft. Obese. There is no tenderness. Neurological: She is alert and oriented to person, place, and time. Pertinent Radiographic/Diagnostic Results: I have independently visualized the following studies: TVUS (07/21/20): 2.6 mm endometrial stripe, normal ovaries, possible right transverse IUD arm protruding into the myometrium Cervical biopsy and ECC (07/2020): ECC: HSIL Biopsy at 5:00: Atypical metaplastic squamous mucosa Assessment/Plan: 1. Plan to proceed with IUD removal and LEEP today 2. Patient received first HPV vaccine in July. She plans to get the second and third shots through her PCP (due in September and January) 3. Today we discussed that after IUD removal we would expect her to have worsening menorrhagia. Shedeclines placement of a new IUD, as she reports bad experiences with both IUDs she has had, and is not interested in other hormonal management. We discussed the possibility of starting PO TXA to decrease her bleeding and planned to talk more about this at her postoperative visit. 4. We also reviewed that Cecilia is at increased risk of developing uterine cancer due to her morbidobesity, and that the Mirena IUD can be protective by counteracting the excess estrogen. She had a negative EMB in May. She is interested in talking about this further at her postop visit. We discussed that if she has abnormal bleeding in the future it would be important to have an EMB collected, and that likely having these q1-2y as surveillance would be a good idea. Vannessa Cary MD 09/22/2020 Associated attestation - Jennifer Blair MD - 09/22/2020 9:29 AM EST I have seen the patient and reviewed Dr. Cary's above history and I agree with the details as written. The assessment and plan were formulated in discussion with me and I agree with them as documented. Cecilia is sure she wants the IUD removed today. She states this is her second and they 'have given her nothing but trouble.' She felt the first one and this second one is ? Embedded and she feels thestrings despite having them trimmed. She spots and bleeds all the time on the IUD's. When off the IUD's she has terribly heavy menses with flooding. Reviewed recommendation for regular uterine sampling, and consideration of hormonal management for endometrial protection, or at least TXA to decreaseamount of bleeding. She says that due to her weight, physicians have declined hysterectomy. Reviewed that with weight loss, she may be a candidate for a robotic hysterectomy. She may have a consult with [facility] if interested to discuss weight loss goals as Cecilia states 'noone has beenable to give her a number' for weight loss needed for hysterectomy. Also reviewed option of referral [facility]. She will consider. Offered her support for having to go through this and let her know we are here for her and will take good care of her. Jennifer Blair MD documented in this encounter Miscellaneous Notes * Op Note - Vannessa Cary - 09/22/2020 12:30 PM EST Operative Note ?? Patient Name: Cecilia Connelly : [id number] MR#: [id number] ?? Case Date: 09/22/2020 ?? Surgeon: Surgeon(s) and Role: * Jennifer Blair MD - Primary * Vannessa Cary MD - Resident * Ines Groves MD - Resident ?? Preoperative diagnosis: Cervical dysplasia II-III ?? Postoperative diagnosis: Cervical dysplasia II-III ?? Procedure(s) (LRB): CONIZATION OF CERVIX, LOOP ELECTRODE (WRVU 3.67) (N/A) (MSURG) REMOVAL IUD, VAGINAL APPROACH (WRVU 1.27) (N/A) ?? Procedures as described by surgeon: LEEP procedure Mirena IUD removal 22 modifer due to BMI of 68 ?? Anesthesia: General ?? Findings: 1) EUA: Small AV uterus, limited by habitus. No external genitalia lesions, normal architecture. 2) Colposcopy: No acetowhite lesions, no abnormal vessels 3) LEEP Electrodes used: 2 x 0.8 cm followed by 1 x 1 cm top hat (due to small cervix could not duelarger loop initially even though Cecilia is s/p BTL and does not desire future childbearing). 3) 22 modifier for case: This patient has morbid obesity with a Body mass index is 68 kg/m??. ??This made the operation significantly more difficult. ??Her obesity increased the time required for patient positioning, necessitated additional equipment and supplies, and increased the difficulty, complexity, and time required to perform the required surgery. Specifically, it was much more difficult to prepare the patient for surgery, obtain adequate exposure and perform the broderick parts of the operation because of this patient's obesity. ??I estimate that this problem increased the time required by4 times the usual amount of time. ?? Complications: None ?? Estimated Blood Loss: 20 cc ?? Specimens removed during surgery: 1) LEEP 2) post LEEP tophat 3) post LEEP ECC Fluids: Intraprocedure Crystalloid Total Intake lactated ringers infusion 800.00 mL Total Intake 800 mL PRBCs: none (See Anesthesia Record/Report for Other Blood Products) Urine Output: not measured ?? Drains: none ?? Disposition: awakened from anesthesia, extubated and taken to the recovery room in a stable condition, having suffered no apparent untoward event. ?? Condition: doing well without problems ?? (Please see the Surgical Encounter Summary for any Implant and Specimen details pertinent to this patient.) ?? Infection Bundle used? N/A HPI: Cecilia Connelly is a 35 y.o. premenopausal who presents today for a LEEP. The patient presented to Dr. Irwin for a colposcopy in July 2020 after a Pap smear revealed ASCUS, Other HR HPV positive. The colposcopic impression was consistent with squamous metaplasia vs HPV effect. The biopsy results returned with HSIL on ECC and atypical metaplastic squamous mucosa on biopsy at 5 o'clock Prior to the LEEP today, the risks and benefits of the procedure were discussed in detail with the patient, including, but not limited to bleeding, infection, damage to surrounding organs including vaginal burn, and possible future risk of labor (though patient is status post BTL so this isless relevant) and cervical stenosis. Description of the procedure: Patient had a urine test, which was negative. The patient was taken to the operating roomwith IV fluids running. General anesthesia was administered without incident. She was positioned indorsal supine [facility], then prepped and draped in the usual sterile fashion. A time-out was performed with all team members in agreement to proceed. A non-conducting Graves speculum was inserted into the vagina and with significant retraction efforts by the graduate assistant athletic trainer, the anterior lip of the cervix was able to be visualized. This was grasped witha non-conducting single tooth tenaculum, and then an another tenaculum was used to grasp the cervixat 9 o'clock in an effort to walk the posterior edge of the cervix into a visible plane. The non-conducting single tooth tenaculum was then removed from the anterior lip and re-placed at 7 o'clock.With strong tension on this, then entirety of the cervix was visualized. The Mirena IUD strings were visualized at the os. The strings were gently grasped with a ring forcep and the Mirena IUD removed intact without complication. It was inspected and noted to be intact. The cervix was then bathed in 5% acetic acid. The colposcope was then used to look for acetowhite changes, none of which were visualized. Next, 1% lidocaine with epinephrine was used for a cervical block and injected into the cervical epithelium in the usual fashion. A total of 10 mL were used. A 2x 0.8cm loop was selected. The electrosurgical settings were set at 35/35 blend. The loop was introduced on the portion of the cervix at the 6 o'clock position. It was deployed in a continuous fashion and removed at 12 o'clock. Next a 1x1cm loop was selected and used to collect a top hat An endocervical curette was then used to collect endometrial curettings, which were sent as an additional sample for Pathology Next, a 0.5mm roller ball was used to coagulate the edges, extending to approximately 1 cm in all directions. The base was made hemostatic with the same roller ball. The patient was de-positioned after Monsel's was placed. She tolerated the procedure well. The specimens were sent to Pathology. All instruments were removed from the vagina. The patient tolerated the procedure well and was in satisfactory condition at its conclusion. Sponge, lap and needle counts were correct times two at case close. Dr. Blair was present for and participated in the entire procedure without any conflicting clinicalresponsibilities. Vannessa Cary MD, PGY3 Obstetrics and Gynecology 09/22/2020 Associated attestation - Jennifer Blair MD - 09/23/2020 10:00 PM EST Attestation: Case Date: 09/22/2020 I was present and I participated during the entire procedure (does not need to include opening and closing). Jennifer Blair MD 09/23/2020 * Brief Op Note - Jennifer Blair MD - 09/22/2020 10:55 AM EST Brief Operative Note Patient Name: Cecilia Connelly : [id number] MR#: [id number] Case Date: 09/22/2020 Surgeon: Surgeon(s) and Role: * Jennifer Blair MD - Primary * Vannessa Cary MD - Resident * Ines Groves MD - Resident Preoperative diagnosis: Cervical dysplasia II-III Postoperative diagnosis: Cervical dysplasia II-III Procedure(s) (LRB): CONIZATION OF CERVIX, LOOP ELECTRODE (WRVU 3.67) (N/A) (MSURG) REMOVAL IUD, VAGINAL APPROACH (WRVU 1.27) (N/A) Procedures as described by surgeon: LEEP procedure Mirena IUD removal 22 modifer due to BMI of 68 Anesthesia: General Findings: 1) EUA: Small AV uterus, limited by habitus. No external genitalia lesions, normal architecture. 2) Colposcopy: No acetowhite lesions, no abnormal vessels 3) LEEP Electrodes used: 2 x 0.8 cm followed by 1 x 1 cm top hat (due to small cervix could not duelarger loop initially even though Cecilia is s/p BTL and does not desire future childbearing). 3) 22 modifier for case: This patient has morbid obesity with a Body mass index is 68 kg/m??. This made the operation significantly more difficult. Her obesity increased the time required for patientpositioning, necessitated additional equipment and supplies, and increased the difficulty, complexity, and time required to perform the required surgery. Specifically, it was much more difficult to prepare the patient for surgery, obtain adequate exposure and perform the broderick parts of the operation because of this patient's obesity. I estimate that this problem increased the time required by 4 times the usual amount of time. Complications: None Estimated Blood Loss: 20 cc Specimens removed during surgery: 1) LEEP 2) post LEEP tophat 3) post LEEP ECC Fluids: Intraprocedure Crystalloid Total Intake lactated ringers infusion 800.00 mL Total Intake 800 mL PRBCs: none (See Anesthesia Record/Report for Other Blood Products) Urine Output: not measured Drains: none Disposition: awakened from anesthesia, extubated and taken to the recovery room in a stable condition, having suffered no apparent untoward event. Condition: doing well without problems (Please see the Surgical Encounter Summary for any Implant and Specimen details pertinent to this patient.) Infection Bundle used? N/A Jennifer Blair MD documented in this encounter Plan of Treatment Not on file documented as of this encounter Procedures Procedure Name Priority Date/Time Associated Diagnosis Comments SPECIMEN TO PATHOLOGY Routine 09/22/2020 10:43 AM EST SPECIMEN TO PATHOLOGY Routine 09/22/2020 10:43 AM EST SPECIMEN TO PATHOLOGY Routine 09/22/2020 10:43 AM EST SURGICAL PATHOLOGY REPORT Routine 09/22/2020 10:38 AM EST Remove Intrauterine Device (47082) 09/22/2020 9:47 AM EST CERVICAL DYSPLASIA Conization Cervix W/Wo D&C Rpr Electrode Excision ([id number]) 09/22/2020 9:47 AM EST CERVICAL DYSPLASIA POCT GLUCOSE Routine 09/22/2020 9:29 AM EST POCT URINE Routine 09/22/2020 documented in this encounter Results * Specimen to Pathology (09/22/2020 10:43 AM EST) AP Specimen 09/22/2020 10:4 3 AM EST 09/22/2020 10:43 AM EST Narrative [facility] - 09/22/2020 10:43 AM EST Specimen requisition ordered. ??Separate Pathology report to follow Jennifer Blair MD PATHOLOGY/CYTOLOGY O CHEO Performing Organization Address [facility] [place] [address] * Specimen to Pathology (09/22/2020 10:43 AM EST) AP Specimen 09/22/2020 10:4 3 AM EST 09/22/2020 10:43 AM EST Narrative [facility] - 09/22/2020 10:43 AM EST Specimen requisition ordered. ??Separate Pathology report to follow Jennifer Blair MD PATHOLOGY/CYTOLOGY O CHOE Performing Organization Address [facility] [place] [address] * Specimen to Pathology (09/22/2020 10:43 AM EST) AP Specimen 09/22/2020 10:4 3 AM EST 09/22/2020 10:43 AM EST Narrative [facility] - 09/22/2020 10:43 AM EST Specimen requisition ordered. ??Separate Pathology report to follow Jennifer Blair MD PATHOLOGY/CYTOLOGY O CHEO Performing Organization Address [facility] [place] [address] * Surgical Pathology Report (09/22/2020 10:38 AM EST) Final Diagnosis [id number] ? Location: [facility]; [facility]; A The signing pathologist has (i) examined the relevant preparation(s) for the specimen(s) and (ii) rendered or confirmed the diagnosis(es). . ?Surgical Pathology DIAGNOSIS A - Cervix, LEEP: ??- Benign squamous and endocervical glandular mucosa. ??- Acute and chronic cervicitis. ??- No evidence of dysplasia or HPV effect. B - Cervix, LEEP, top hat: Specimen Type: ?Cervical LEEP Pathologic Diagnosis: ? 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 Margins ?Endocervical margin: ?Free of dysplasia and HPV effect. ?Deep (bed of cone/LEEP): ??Free of dysplasia and HPV effect. ?Ectocervical margin: ?Free of dysplasia and HPV effect. C - Endocervical curettings: ??- Fragments of benign endocervical mucosa intermixed with ?cervical mucus and blood clot. ??- No evidence of dysplasia or HPV effect. Electronically signed by: ??Mary Jane Sheridan DO Verified: ??09/28/2020 ?Pathologist Performed at: ??-[facility], [place], [place] DISCUSSION Deeper levels were examined. SPECIMEN(S) SUBMITTED A - LEEP, excision (1) B - LEEP top hat, excision (1) C - Post LEEP ECC, curetting (1) CLINICAL INFORMATION Cervical dysplasia SPECIMEN PROCESSING A - Labeled/Fixative : LEEP, fresh. Quantity/Size: Single, 2.0 x 1.3 x 0.8 cm. Tissue Description: Incised LEEP. Orientation: Specimen is unoriented. Mucosa: No gross lesions Os: 1 cm Lesion: See above Ink Designation: The margin is inked black and the endocervical edge is inked blue Sections/Process ing: The specimen is radially sectioned and sequentially submitted. Entirely submitted in 7 cassettes labeled A1-A7. B - Labeled/Fixative : LEEP top hat, formalin. Quantity/Size: Four, 1.6 x 1.6 x 1.0 cm. Tissue Description: Intact LEEP. . SPECIMEN PROCESSING Orientation: Unoriented. Mucosa: No gross lesions Os: 0.5 cm is Lesion: See above Ink Designation: The margin is inked black. A central lacuna is present and the area around it is inked blue Sections/Process ing: The specimen is radially sectioned around the central lacuna and sequentially submitted Entirely submitted in 5 cassettes as follows: ?B1-B3: ??Large piece of specimen ?B4-B5: ??Small pieces of specimen, submitted whole C - Labeled/Fixative : Post LEEP ECC, formalin. Quantity/Size: Multiple, 2 x 1.5 by less than 0.1 cm. Tissue Description: Minute fragments of red and mucinous debris. Sections/Process ing: Entirely submitted in 1 cassette labeled C1. ??rh 09/28/2020 11:51 AM EST [facility] ENDOCERVICAL STRUCTURE / Unknown 09/22/2020 10:38 AM EST 09/22/2020 10:38 AM EST SPECIMEN FROM CERVIX OR VAGINA / Unknown 09/22/2020 10:38 AM EST 09/22/2020 10:38 AM EST ENDOCERVICAL STRUCTURE / Unknown 09/22/2020 10:38 AM EST 09/22/2020 10:38 AM EST Jennifer Blair MD PATHOLOGY/CYTOLOGY O CHEO Performing Organization Address City/[facility]/ZIP Co de Phone Number [facility] [place] [address] * POCT Glucose (09/22/2020 9:29 AM EST) Glucose, POC 95 65 - 199 mg/dL [facility] Comment: Supplemental ranges: <140 mg/dL before meals <180 mg/dL all other times of the day Blood specimen (specimen) 09/22/2020 9:29 AM EST 09/22/2020 9:29 AM EST Jennifer Blair MD POINT OF CARE TEST O RDERAZULEIMA [facility] [place] [address] * POCT urine (09/22/2020) POC Urine HCG Negative Negative - Negative POC Control Internal Controls Acceptable 09/22/2020 Jennifer Blair MD POINT OF CARE TEST O RDERABLES documented in this encounter Visit Diagnoses Not on filedocumented in this encounter Administered Medications Inactive Administered Medications - up to 3 most recent administrations Medication Order MAR Action Action Date Dose Rate Site acetaminophen (Tylenol) tablet 650 mg 650 mg, Oral, EVERY 6 HOURS PRN, Starting on Sun09/22/20 at 1103, Until Sun09/22/20 at 1439, Pain, If multiple pain medications ordered, use acetaminophen first. Maximum dose of acetaminophen is 4000 mg from all sources in 24 hours. When ordered for pain, acetaminophen should be given even when other ordered pain medications are indicated., Routine Given 09/22/2020 11:23 AM EST 650 mg HYDROmorphone (Dilaudid) 0.5 mg/0.5 mL injection 0.2 mg 0.2 mg, Intravenous, EVERY 30 MIN PRN, 3 doses, Starting on Sun09/22/20 at 1107, Until Sun09/22/20 at 1439, Pain, Routine Given 09/22/2020 11:57 AM EST 0.2 mg Given 09/22/2020 11:23 AM EST 0.2 mg lactated ringers infusion 1,000 mL, at 100 mL/hr, Intravenous, CONTINUOUS, Starting on Sun09/22/20 at 0915, Until Sun09/22/20 at 1244, Day of Surgery (Day of Procedure) New Bag 09/22/2020 9:44 AM EST lidocaine (Xylocaine) 1% (10 mg/mL) injection 3 mg 3 mg (0.3 mL), Subcutaneous, ONCE PRN, 1 dose, Starting on Sun09/22/20 at 0850, Until Sun09/22/20 at 1244, for discomfort with PIV insertion, Day of Surgery (Day of Procedure), Routine lidocaine-EPINEPHrine (1% - 1:100,000) injection ONCE PRN, Starting on Sun09/22/20 at 1037, Until Sun09/22/20 at 1439, Intra-Operative (Intra-Procedure), Routine Given 09/22/2020 10:37 AM EST 7 mLs 19- Surgical Site sodium chloride 0.9 % (flush) flush 5-20 mL 5-20 mL, Intravenous, EVERY 1 MIN PRN, Starting on Sun09/22/20 at 0850, Until Sun09/22/20 at 1244, flush, Flush pertains to all indwelling lines. Flush per protocol found in the job aid using the link provided on this medication record., Day of Surgery (Day of Procedure), Routine documented in this encounter Active and Recently Administered Medications Times are shown in EST. Continuous Medication Order 09/20/2020 09/21/2020 09/22/2020 lactated ringers infusion 1,000 mL, at 100 mL/hr, Intravenous, CONTINUOUS, Starting on Sun09/22/20 at 0915, Until Sun09/22/20 at 1244, Day of Surgery (Day of Procedure) 0944 (New Bag - Prov ider: Douglas Parks)1020 (Anesthesia Volume Adjustment - Provider: Douglas Parks)1029 (Anesthesia Volume Adjustment - Provider: Douglas Parks)1051 (Anesthesia Volume Adjustment - Provider: Douglas Parks) lactated ringers infusion 1,000 mL, at 100 mL/hr, Intravenous, CONTINUOUS, Starting on Sun09/22/20 at 1130, Until Sun09/22/20 at 1439 1130 (Due) PRN Medication Order 09/20/2020 09/21/2020 09/22/2020 acetaminophen (Tylenol) tablet 650 mg 650 mg, Oral, EVERY 6 HOURS PRN, Starting on Sun09/22/20 at 1103, Until Sun09/22/20 at 1439, Pain, If multiple pain medications ordered, use acetaminophen first. Maximum dose of acetaminophen is 4000 mg from all sources in 24 hours. When ordered for pain, acetaminophen should be given even when other ordered pain medications are indicated., Routine 1123 (Given - Provid er: Adina Salas RN) HYDROmorphone (Dilaudid) 0.5 mg/0.5 mL injection 0.2 mg 0.2 mg, Intravenous, EVERY 30 MIN PRN, 3 doses, Starting on Sun09/22/20 at 1107, Until Sun09/22/20 at 1439, Pain, Routine 1123 (Given - Provid er: Adina Salas RN)1157 (Given - Provider: Adina Salas RN) lidocaine (Xylocaine) 1% (10 mg/mL) injection 3 mg 3 mg (0.3 mL), Subcutaneous, ONCE PRN, 1 dose, Starting on Sun09/22/20 at 0850, Until Sun09/22/20 at 1244, for discomfort with PIV insertion, Day of Surgery (Day of Procedure), Routine lidocaine-EPINEPHrine (1% - 1:100,000) injection (CANCELED) ONCE PRN, Starting on Sun09/22/20 at 1037, Until Sun09/22/20 at 1439, Intra-Operative (Intra-Procedure), Routine 1037 (Given - Provid er: Jennifer Blair MD) sodium chloride 0.9 % (flush) flush 5-20 mL 5-20 mL, Intravenous, EVERY 1 MIN PRN, Starting on Sun09/22/20 at 0850, Until Sun09/22/20 at 1244, flush, Flush pertains to all indwelling lines. Flush per protocol found in the job aid using the link provided on this medication record., Day of Surgery (Day of Procedure), Routine documented in this encounter Care Teams Sharepoint Solutions Developer Relationship Specialty Start Date End Date Char Alexandre APRN PCP - General Family Medicine 04/22/20 07/28/21 documented as of this encounter
--- OUTSIDE RECORDS SUMMARY | 2024-07-15 21:46 | XMS_ITS | Encounter Summary ---
Author Organization [facility] Address [facility] [place] [address] Care Team Providers Care Nuclear Equipment Sales Engineer Name Role Phone Char Alexandre APRN Primary Care Provider + Encounter Details Date Type Department Care Team (Late st Contact Info) Description 07/28/2020 Telephone Obstetrics [place] [phone] Arlene Costello MD [facility] [address] OBSTETRICS [place] [address] Social History Tobacco Use Types Packs/Day Years Used Date Smoking Tobacco: Former Smokeless Tobacco: Never Sex and Gender Information Value Date Recorded Sex Assigned at Not on file Gender Identity Female 09/20/2020 2:54 PM EST Sexual Orientation Not on file documented as of this encounter Miscellaneous Notes * Telephone Encounter - Arlene Costello - 07/28/2020 2:06 PM EST Cecilia??is a 35 y.o.?female with PMHx notable for HTN, pre-diabetes, morbid obesity, MEY,GERD, PTSD, insomnia, anxiety/depression, chronic low back pain and iron deficiency anemia, who wasseen on 06/11 for Gynecologic consultation of abnormal uterine bleeding. At that visit, EMB collected and Mirena IUD inserted. Called today with results of TVUS, ordered to assess for structural etiology of AUB. There was concern on imaging for one of the IUD arms protruding into the myometrium; remainder of the IUD positionintrauterine. Cecilia is asymptomatic, denies cramping, heavy bleeding or pain. Discussed that the IUD remains effective for contraception given that it is otherwise normally placed, with one arm that might be embedded. Offered to replace vs monitor symptoms. She elects for the later. I encouraged her to keep track of symptoms. Plan in place to follow up in 2-3 months. 07/21/2020 TVUS UTERUS: ------- Uterus: Visualized Position: Anteverted Size (cm) L: 10.9 W: 6.8 H: 5.1 ?? ENDOMETRIUM: Endometrium: Normal appearance Thickness(mm): 2.61 ?? Comment: 3D rendering with interpretation was performed for IUD placement. ?? ------- CERVIX: ------- Multiple nabothian cysts seen ?? RIGHT OVARY: Status: Visualized Size (cm) L: 3.5 W: 2.5 H: 1.6 Vol (ml): 7.7 Morphology: Normal appearance ?? Comment: Ovary was not seen transvaginally, therefore [...] be further elucidated. Findings called to Dr. Juju Cope at 11h15. Arlene Costello MD PGY4 07/28/20 documented in this encounter Plan of Treatment Not on file documented as of this encounter Visit Diagnoses Not on filedocumented in this encounter Care Teams Nuclear Equipment Sales Engineer Relationship Specialty Start Date End Date Char Alexandre APRN PCP - General Family Medicine 04/22/20 07/28/21 documented as of this encounter
--- OUTSIDE RECORDS SUMMARY | 2024-07-15 21:46 | XMS_ITS | Encounter Summary ---
Author Organization [facility] Address [address] [place] [address] Care Team Providers Care Crisis Intervention Specialist Name Role Phone TameraluisaJordan heathgregbelen WHITMAN Unavailable Seamus, Diane Primary Care Provider [phone] Encounter Details Date Type Department Care Team (Latest Contact Info) Description 11/21/2023 Transcribe Orders [facility] - Main [place] [address] [place] [id number] Seamus, Diane [address] [place] [address] Iron deficiency anemia, unspecified iron [...] Procedure Name Priority Date/Time Associated Diagnosis Comments [facility] CBC SMEAR REVIEW Today 12/03/2023 12:15 EDT Iron deficiency anemia, unspecified iron deficiency anemia type COMPLETE BLOOD COUNT AND DIFFERENTIAL Routine 12/03/2023 12:15 EDT Iron deficiency anemia, unspecified iron deficiency anemia type documented in this encounter Results * [facility] CBC SMEAR REVIEW (12/03/2023 12:15 EDT) Differential Comment Slide was examined by a technologist to verify the WBC and/or platelet count. 12/03/2023 13:18 EDT [facility] Blood VENOUS BLOOD / Unknown Venipuncture / Unknown 12/03/2023 12:15 EDT 12/03/2023 12:31 EDT Diane Seamus HEMATOLOGY & PF4 ORD ERABLES Performing Organization Address City/State/[facility] Co de Phone Number [facility] [address] [place] [address] * COMPLETE BLOOD COUNT AND DIFFERENTIAL (12/03/2023 12:15 EDT) WBC 8.72 4.00 - 12.40 K/cmm 12/03/2023 13:26 [facility] RBC 4.59 3.86 - 5.04 M/cmm 12/03/2023 13:26 [facility] Hemoglobin 13.4 11.6 - 15.2 g/dL 12/03/2023 13:26 [facility] HCT 41.3 34.9 - 44.4 % 12/03/2023 13:26 [facility] MCV 90 81 - 98 fL 12/03/2023 13:26 [facility] MCH 29.2 26.7 - 33.3 pg 12/03/2023 13:26 [facility] MCHC 32.4 32.1 - 35.9 g/dL 12/03/2023 13:26 [facility] RDW-CV 13.1 <14.7 % 12/03/2023 13:26 [facility] RDW-SD 43.0 <50.4 fl 12/03/2023 13:26 [facility] PLT 237 141 - 377 K/cmm 12/03/2023 13:26 [facility] MPV 12/03/2023 13:26 [facility] Comment:Not Available % Neutrophils 71.6 % 12/03/2023 13:26 [facility] % Lymphocytes 20.4 % 12/03/2023 13:26 [facility] % Monocytes 6.8 % 12/03/2023 13:26 [facility] % Eosinophils 0.7 % 12/03/2023 13:26 [facility] % Basophils 0.2 % 12/03/2023 13:26 [facility] % Immature Grans 0.3 % 12/03/19 13:26 [facility] Absolute Neutrophils 6.24 2.20 - 8.85 K/cmm 12/03/2023 13:26 [facility] Absolute Lymphocytes 1.78 1.09 - 3.30 K/cmm 12/03/2023 13:26 [facility] Absolute Monocytes 0.59 0.10 - 0.80 K/cmm 12/03/2023 13:26 [facility] Absolute Eosinophils 0.06 0.03 - 0.61 K/cmm 12/03/2023 13:26 [facility] ABS Basophils 0.02 0.01 - 0.11 K/cmm 12/03/2023 13:26 [facility] Absolute Immature Grans 0.03 0.00 - 0.06 K/cmm 12/03/2023 13:26 [facility] Type of Differential: Auto 12/03/2023 13:26 EDT [facility] Blood VENOUS BLOOD / Unknown Venipuncture / Unknown 12/03/2023 12:15 EDT 12/03/2023 12:31 EDT Diane Seamus PACKAGES & DNA PROBE ORDERABLES Performing Organization Address [facility]/ZIP Co de Phone Number [facility] [address] [place] [address] * VITAMIN D (25,OH) (12/03/2023 12:15 EDT) 25OH Vitamin D Tot 49 30 - 100 ng/mL 12/03/2023 19:41 EDT [facility] Blood VENOUS BLOOD / Unknown Venipuncture / Unknown 12/03/2023 12:15 EDT 12/03/2023 12:49 EDT Diane Seamus CHEMISTRY & BLOOD GA S ORDERABLES Performing Organization Address City/[facility]/ZIP Co de Phone Number [facility] [address] [place] [address] * IBC (12/03/2023 12:15 EDT) Iron Binding Capacity 344 240 - 450 ??g/dL 12/03/2023 18:25 EDT [facility] Blood VENOUS BLOOD / Unknown Venipuncture / Unknown 12/03/2023 12:15 EDT 12/03/2023 12:49 EDT Diane Seamus CHEMISTRY & BLOOD GA S ORDERABLES Performing Organization Address City/[facility]/ZIP Co de Phone Number [facility] [address] [place] [address] * IRON (12/03/2023 12:15 EDT) Iron 51 37 - 170 ??g/dL 12/03/2023 18:04 EDT [facility] Blood VENOUS BLOOD / Unknown Venipuncture / Unknown 12/03/2023 12:15 EDT 12/03/2023 12:[address] CHEMISTRY & BLOOD GA S ORDERABLES [facility] [address] [place] [address] documented in this encounter Visit Diagnoses Diagnosis Iron deficiency anemia, unspecified iron deficiency anemia type- Primary Hypomagnesemia Disorders of magnesium metabolism documented in this encounter Care Teams Crisis Intervention Specialist Relationship Specialty Start Date End Date [address] [place] [id number] PCP - General Family Medicine - Primary Care 11/14/23 Whitley Sage MBBS [address] [facility], [address] [place] [address] Consulting Clinician Pulmonary Disease 05/01/22 documented as of this encounter
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
--- OUTSIDE RECORDS SUMMARY | 2024-07-15 21:46 | XMS_ITS | Referral Summary ---
Author Organization [facility] Address [address] [place] [address] Care Team Providers Care Switchboard Wire Worker Helper Name Role Phone Whitley Sage Unavailable Diane Way Primary Care Provider [phone] Allergies Active Allergy Reactions Criticality Noted Date Comments Azithromycin 02/10/2022 Patient states that this is not an allergy anymore and needs to be removed-prolonged qt symptoms Medications Medication Sig Dispensed Refills Start Date End Date Status lisinopriL (PRINIVIL) 40 mg tablet Take 1 Tablet by mouth daily. Active LORazepam (ATIVAN) 1 mg tablet Take 1 mg by mouth 2 times daily. BID PRN Active fluticasone propionate (FLONASE) 50 mcg/actuation nasal spray Instill 2 Sprays into both nostrils 2 times daily. Active moxifloxacin (VIGAMOX) 0.5 % ophthalmic solution Place 1 Drop into the left eye 4 times daily. 1 mL 08/28/2021 Active Additional Information Patient not taking.Reported on 03/05/2023 Lavender Oil oil by other route. 2 pills at HS Active lisdexamfetamine (VYVANSE) 50 mg capsule Take 1 Capsule by mouth daily. Active albuterol 90 mcg/actuation inhaler Inhale 2 Puffs as directed every 4 hours as needed. Active acetaminophen (TYLENOL) 650 mg CR tablet Take 1 Tablet by mouth every 8 hours as needed. Active L-Methylfolate 15 mg tablet daily. 01/23/2022 Active VITAMINS B COMPLEX tablet Take 1 Tablet by mouth 2 times daily. 11/15/2021 Active Cholecalciferol, Vitamin D3, 50 mcg capsule TAKE 2 CAPSULES BY MOUTH ONCE DAILY 01/10/2022 Active ADVAIR HFA 230-21 mcg/actuation inhaler Inhale 2 Puffs as directed 2 times daily. 01/23/2022 Active lamoTRIgine (LAMICTAL) 200 mg tablet daily. 01/13/2022 Active VYVANSE 30 mg capsule TAKE 1 CAPSULE BY MOUTH IN THE MORNING ALONG WITH 10MG IN THE AFTERNOON 02/03/2022 Active naproxen (NAPROSYN) 500 mg tablet 1 tab twice daily 01/23/2022 Acti ve oxygen-air delivery systems (HORIZON NASAL CPAP SYSTEM MISC) by misc (non-drug; combo route) route. Active Multivitamins with Minerals tablet tablet Take 3 Tablets by mouth daily. Active ketotifen (ZADITOR) 0.025 % (0.035 %) ophthalmic solution Place 1 Drop into both eyes 2 times daily. Active Magnesium Gluconate 27 mg magnesium (500 mg) tablet Take 1,000 mg by mouth 2 times daily. Active fexofenadine (PRAVIN) 180 mg tablet Take 1 Tablet by mouth daily. Active Leg Brace (KNEE STABILIZER) misc by misc (non-drug; combo route) route. Leg brace Active UNABLE TO FIND Med Name: [facility] Active albuterol (ACCUNEB) 2.5 mg /3 mL (0.083 %) nebulizer solutionIndications: Asthma in adult, moderate persistent, uncomplicated Take 3 mL by nebulization every 4 hours as needed for Wheezing. 1 Each 02/23/2022 Active Additional Information Patient not taking.Reported on 03/05/2023 omeprazole (PRILOSEC) 20 mg capsuleIndications:g astroesophageal reflux disease Take 2 Capsules by mouth 2 times daily. Active traZODone (DESYREL) 100 mg tabletIndications:in somnia associated with depression Take 1 Tablet by mouth at bedtime. Active famotidine (PEPCID) 40 mg tablet Take 1 Tablet by mouth at bedtime. 90 Tablet 01/09/2023 Active amitriptyline (ELAVIL) 10 mg tablet Take 1 Tablet by mouth at bedtime. 90 Tablet 02/01/2023 Active Additional Information Patient not taking.Reported on 03/05/2023 hydrOXYzine (ATARAX) 50 mg tablet Take 1 Tablet by mouth at bedtime. 10/25/2023 Active ondansetron (ZOFRAN-ODT) 4 mg disintegrating tablet DISSOLVE ONE TABLET ON THE TONGUE EVERY 8 HOURS NEEDED FOR NAUSEA AND VOMITING Active benzonatate (TESSALON) 200 mg capsuleIndications:U pper respiratory tract infection, unspecified type Take 1 Capsule by mouth at bedtime as needed for Cough. 20 Capsule 11/06/2023 Active Additional Information Patient not taking.Reported on 11/08/2023 vilazodone (VIIBRYD) 20 mg tablet Take 30 mg by mouth daily. Active Active Problems Problem Noted Date Diagnosed Date Knee pain, right 02/10/2022 Vitamin D deficiency 02/10/2022 Long Q-T syndrome 02/10/2022 Severe cervical dysplasia 02/10/2022 Restless leg syndrome 02/10/2022 Anxiety 02/10/2022 Asthma in adult, moderate persistent, uncomplica josette 02/10/2022 Last Assessment & Plan: - type II/allergic Vs obesity related - poorly controlled - having frequent exacerbations - on advair and albuterol inhaler as needed - will add LAMA - also discussed about role of obesity on lung function and asthma - Have ordered IgE to understand the phenotype - has MEY, is on cpap, serum co2 has been less than 27 in past, low suspicion of OHS or right heart dysfunction, will order nt pro bnp since she has symptoms disproportionate to PFT. If elevated will consider echo. Attention or concentration deficit 02/10/2022 Abnormal uterine bleeding 02/10/2022 Urolithiasis 02/10/2022 Allergic rhinitis 02/10/2022 Generalized headaches 02/10/2022 Iron deficiency anemia 02/10/2022 Hypomagnesemia 02/10/2022 Hypokalemia 02/10/2022 Prediabetes 02/10/2022 Hypertension 02/10/2022 Severe obstructive sleep apnea 02/10/2022 Anxiety with depression 02/10/2022 PTSD (post-traumatic stress disorder) 02/10/2022 Daytime somnolence 02/10/2022 Knee arthropathy 02/10/2022 Carpal tunnel syndrome, bilateral upper limbs Low back pain 02/10/2022 Prolonged QT interval 02/10/2022 Hemorrhoids, external 02/10/2022 GERD (gastroesophageal reflux disease) Ear pain 02/10/2022 Obesity 02/10/2022 Immunizations Name Administration Dates Next Due Covid-19 mRNA Booster Vaccin e (MODERNA COVID-19 BOOSTER) PF 0.25 mL IM (18 yrs+) 07/25/2021 Covid-19 mRNA Vaccine (MODER NA COVID-19) PF 0.5 ml IM (12 yrs+) 10/25/2020,09/23/2020 Historical HPV Vaccine, Unspecified 07/29/2021,0 01/05/2021,07/21/2020 Historical Influenza Vaccine , Unspecified 06/16/2021,06/14/2020,06/20/2018,2015 Pneumococcal Conjugate Vacci ne 20-Valent (PCV20) (PREVNAR-20) 0.5 mL IM (6 wks+) 05/05/2022 Tdap Vaccine =>7YO IM 08/28/2021,06/17/2016 Social History Tobacco Use Types Packs/Day Years Used Date Smoking Tobacco: Former Cigarettes 1 10 2 004 - 2013 Smokeless Tobacco: Never Tobacco Cessation:Counseling Given: Not Answered Comments:edible marijuana in the evening Alcohol Use Standard Drinks/Week Comments Not Currently 0 (1 standard drink = 0.6 oz pur e alcohol) Sex and Gender Information Value Date Recorded Sex Assigned at Not on file Gender Identity Female 04/26/2022 9:31 EDT Sexual Orientation Not on file Last Filed Vital Signs Vital Sign Reading Time Taken Comments Blood Pressure 147/96 11/14/2023 1611 EST Pulse 77 11/08/2023 0955 EST Temperature 36.4 ??C (97.5 ??F) 11/14/2023 1324 EST Respiratory Rate 18 11/14/2023 1611 EST Oxygen Saturation 98% 11/14/2023 1611 EST Inhaled Oxygen Concentration - - Weight 158.8 kg (350 lb) 11/14/2023 1324 EST Height 162.6 cm (5' 4) 01/04/2023 0843 EDT Body Mass Index 60.08 01/04/2023 0843 EDT Functional Status Functional Status Response Date of [...] concentrating, remembering, or making decisions? Yes 05/05/2022 Plan of Treatment Not on file Procedures Procedure Name Priority Date/Time Associated Diagnosis Comments PULMONARY FUNCTION TESTING Routine 03/30/2022 7:20 EDT Uncomplicated asthma, unspecified asthma severity, unspecified whether persistent from Last 3 Months or Most Recently Relevant to Health Maintenance Results * PULMONARY FUNCTION TESTING (03/30/2022 7:20 EDT) 03/30/2022 7:20 EDT Whitley KNOXBS PFT O RDERABLES [facility] PULMONARY FUNCTION TESTING from Last 3 Months or Most Recently Relevant to Health Maintenance Care Teams Switchboard Wire Worker Helper Relationship Specialty Start Date End Date [address] [place] [phone] PCP - General Family Medicine - Primary Care 11/14/23 Whitley Sage MBBS [address] [place] [address], [address] [place] [address] Consulting Clinician Pulmonary Disease 05/01/22
--- OUTSIDE RECORDS SUMMARY | 2024-07-15 21:46 | XMS_ITS | Encounter Summary ---
Author Organization [facility] Address [facility] [place] [address] Care Team Providers Care Manager Protein Name Role Phone Char Alexandre APRN Primary Care Provider + Encounter Details Date Type Department Care Team (Late st Contact Info) Description 08/03/2020 Telephone Obstetrics [place] [phone] Sofi Irwin MD [facility] DR OBSTETRICS & [place] [address] Social History Tobacco Use Types Packs/Day Years Used Date Smoking Tobacco: Former Smokeless Tobacco: Never Sex and Gender Information Value Date Recorded Sex Assigned at Not on file Gender Identity Female 09/20/2020 2:54 PM EST Sexual Orientation Not on file documented as of this encounter Miscellaneous Notes * Telephone Encounter - Sofi Irwin MD - 08/03/2020 4:58 PM EST LM and then sent [facility] note about colpo path - needs LEEP in OR. documented in this encounter Plan of Treatment Not on file documented as of this encounter Visit Diagnoses Not on filedocumented in this encounter Care Teams Manager Protein Relationship Specialty Start Date End Date Char Alexandre APRN PCP - General Family Medicine 04/22/20 07/28/21 documented as of this encounter
--- OUTSIDE RECORDS SUMMARY | 2024-07-15 21:46 | XMS_ITS | Encounter Summary ---
Author Organization [facility] Address [facility] [place] [address] Care Team Providers Care Section Cutter Name Role Phone Char Alexandre APRN Primary Care Provider + Encounter Details Date Type Department Care Team (Late st Contact Info) Description 08/17/2020 Telephone Obstetrics [place] [phone] Sofi Irwin MD [facility] DR OBSTETRICS & [place] [address] Social History Tobacco Use Types Packs/Day Years Used Date Smoking Tobacco: Former Smokeless Tobacco: Never Sex and Gender Information Value Date Recorded Sex Assigned at Not on file Gender Identity Female 09/20/2020 2:54 PM EST Sexual Orientation Not on file documented as of this encounter Miscellaneous Notes * Telephone Encounter - Sofi Irwin MD - 08/17/2020 3:58 PM EST I spoke to Cecilia, she understands she needs a LEEP prior to consideration of a hyst, will get it scheduled in the OR. documented in this encounter Plan of Treatment Not on file documented as of this encounter Visit Diagnoses Not on filedocumented in this encounter Care Teams Section Cutter Relationship Specialty Start Date End Date Char Alexandre APRN PCP - General Family Medicine 04/22/20 07/28/21 documented as of this encounter
--- OUTSIDE RECORDS SUMMARY | 2024-07-15 21:46 | XMS_ITS | Encounter Summary ---
Author [facility] [place] [address] Care Team Providers Care Digital Communications Manager Name Role Phone Char Alexandre APRN Primary Care Provider + Reason for Visit * Reason Onset Date Comments Questions 07/07/2020 Encounter Details Date Type Department Care Team ([facility] Contact Info) Description 07/07/2020 Telephone Obstetrics [place] [phone] Mora Rao RN Questions Social History Tobacco Use Types Packs/Day Years Used Date Smoking Tobacco: Former Smokeless Tobacco: Never Sex and Gender Information Value Date Recorded Sex Assigned at Not on file Gender Identity Female 09/20/2020 2:54 PM EST Sexual Orientation Not on file documented as of this encounter Miscellaneous Notes * Telephone Encounter - Mora Rao RN - 07/07/2020 12:29 PM EDT TELEPHONE NOTE Caller: chino Rao RN Reason for call: Question regarding u/s Assessment: Plan/Instructions: Left message on voicemail. documented in this encounter Plan of Treatment Not on file documented as of this encounter Visit Diagnoses Not on filedocumented in this encounter Care Teams Digital Communications Manager Relationship Specialty Start Date End Date Char Alexandre APRN PCP - General Family Medicine 04/22/20 07/28/21 documented as of this encounter
--- OUTSIDE RECORDS SUMMARY | 2024-07-15 21:46 | XMS_ITS | Clinical Summary ---
Author Organization [facility] Address [address] [place] [address] Care Team Providers Care Career Technical Education Teacher Name Role Phone Whitley Sage Unavailable Diane [address] Primary Care Provider [phone] Allergies Active Allergy Reactions Criticality Noted Date [...] brace Active UNABLE TO FIND Med Name: [facility] Active albuterol (ACCUNEB) 2.5 mg /3 mL [...] wks+) 05/05/2022 Tdap Vaccine =>7YO IM 08/28/2021,06/17/2016 Surgical History Surgery Date Site/Laterality Comments TYMPANOSTOMY TUBE PLACEMENT TONSILLECTOMY SECTION x2 TUBAL LIGATION Medical History Medical History Date Comments Hypertension Asthma GERD (gastroesophageal reflux disease) Anomaly, cardiac Heart palpitati ons Mental disorder Bipolar Family History Medical History Relation Comments Cancer Maternal Grandfather Heart Disease Maternal Grandfather Hearing Loss Maternal Grandmother Allergic Rhinitis Mother Cancer Mother Relation Status Comments Maternal Grandfather Maternal Grandmother Mother Social History Tobacco Use Types Packs/Day Years Used Date Smoking Tobacco: Former Cigarettes 1 10 2 - 2013 Smokeless Tobacco: Never Tobacco Cessation:Counseling Given: Not Answered Comments:edible marijuana in the evening Alcohol Use Standard Drinks/Week Comments Not Currently 0 (1 standard drink = 0.6 oz pur e alcohol) Sex and Gender Information Value Date Recorded Sex Assigned at Not on file Gender Identity Female 04/26/2022 9:31 EDT Sexual Orientation Not on file Obstetrics History Last Filed Vital Signs Vital Sign Reading [...] Body Mass Index 60.08 01/04/2023 0843 EDT Plan of Treatment Health Maintenance Due Date Last Done Comments Asthma Action Plan 1985 Hepatitis C Screen 1985 Hepatitis B Vaccine (1 of 3 - 19+ 3-dose series) 01/18/2004 Lung Function Test (Spirometry) 03/30/2023 COVID-19 Vaccine (2023-2 5 season) 2024 07/25/2021, 10/25/2020, 09/23/2020 Procedures Procedure Name Priority Date/Time Associated Diagnosis Comments PULMONARY FUNCTION TESTING Routine 03/30/2022 7:20 EDT Uncomplicated asthma, unspecified asthma severity, unspecified whether persistent from Last 3 Months or Most Recently Relevant to Health Maintenance Results * PULMONARY FUNCTION TESTING (03/30/2022 7:20 EDT) 03/30/2022 7:20 EDT Whitley WHITMAN PFT O RDERABLES [facility] PULMONARY FUNCTION TESTING from Last 3 Months or Most Recently Relevant to Health Maintenance Care Teams Career Technical Education Teacher Relationship Specialty Start Date End Date [address] [place] [phone] PCP - General Family Medicine - Primary Care 11/14/23 Whitley Sage MBBS [address] [place] [address], [address] [place] [phone] Consulting Clinician Pulmonary Disease 05/01/22
--- OUTSIDE RECORDS SUMMARY | 2024-07-15 21:46 | XMS_ITS | Encounter Summary ---
Author Organization [facility] Address [facility] [place] [address] Care Team Providers Care Certified Procedural Coder Name Role Phone Unavailable Primary Care Provider Unavailabl e Encounter Details Date Type Department Care Team ([facility] st Contact Info) Description 12/13/2017 Telephone General Surgery at [facility] [place] [phone] Ashely Zimmerman Social History Tobacco Use Types Packs/Day Years Used Date Smoking Tobacco: Never Assessed Sex and Gender Information Value Date Recorded Sex Assigned at Not on file Gender Identity Female 09/20/2020 2:54 PM EST Sexual Orientation Not on file documented as of this encounter Miscellaneous Notes * Telephone Encounter - Ashely Zimmerman - 12/13/2017 10:28 AM EDT Spoke on the phone with patient's . Will mail letter to patient to let her know what the referral is for and to give her for information about the bariatric surgery program. documented in this encounter Plan of Treatment Not on file documented as of this encounter Visit Diagnoses Not on filedocumented in this encounter
--- OUTSIDE RECORDS SUMMARY | 2024-07-15 21:46 | XMS_ITS | Encounter Summary ---
[place] [address] Care Team Providers Care Pneumatic Tester Mechanic Name Role Phone Char Alexandre APRN Primary Care Provider + Encounter Details Date Type Department Care Team (Latest Contact Info) Description 07/21/2020 2:30 PM EST Clinical Support Obstetrics [place] [phone] Need for HPV vaccination Social History Tobacco Use Types Packs/Day Years Used Date Smoking Tobacco: Former Smokeless Tobacco: Never Sex and Gender Information Value Date Recorded Sex Assigned at Not on file Gender Identity Female 09/20/2020 2:54 PM EST Sexual Orientation Not on file documented as of this encounter Progress Notes * Stacey Cantu CCMA - 07/21/2020 2:30 PM EST Patient came in for 1st dose of HPV. Patient tolerated well in left deltoid. documented in this encounter Plan of Treatment Not on file documented as of this encounter Visit Diagnoses Diagnosis Need for HPV vaccination Need for prophylactic vaccination and inoculation against other viral diseases documented in this encounter Care Teams Pneumatic Tester Mechanic Relationship Specialty Start Date End Date Char Alexandre APRN PCP - General Family Medicine 04/22/20 07/28/21 documented as of this encounter
--- OUTSIDE RECORDS SUMMARY | 2024-07-15 21:46 | XMS_ITS | Encounter Summary ---
Author Organization [facility] Address [facility] [place] [address] Care Team Providers Care Technology Officer Name Role Phone Char Alexandre APRN Primary Care Provider + Reason for Visit * Auth/Cert Specialty Diagnoses / Procedures Referred By Contac t Referred To Contact Diagnoses Cervical dysplasia CERVICAL DYSPLASIA Procedures PRO CONIZATION CERVIX W/WO D&C RPR ELECTRODE EXCISION CONIZATION OF CERVIX, LOOP ELECTRODE (WRVU 3.67) Referral ID Status Reason Start Date Expiration Date Visits Re quested Visits Authorized [id number] 1 Encounter Details Date Type Department Care Team (Latest Contact Info) Description 09/22/2020 8:11 AM EST - 09/22/2020 12:30 PM EST Hospital Encounter [place] [address] Jennifer Blair MD [facility] DR OBSTETRICS [place] [address] Cervical dysplasia Discharge Disposition: Home Social History Tobacco Use [...] Sign Reading Time Taken Comments Blood Pressure 91/53 09/22/2020 11:06 AM EST Pulse 84 09/22/2020 11:06 AM EST Temperature 36.5 ??C (97.7 ??F) 09/22/2020 1 1:06 AM EST Respiratory Rate 16 09/22/2020 8:50 AM EST Oxygen Saturation 100% 09/22/2020 11: 06 AM EST Inhaled Oxygen Concentration - - [...] DISCHARGE INSTRUCTIONS Please call our office at [phone] with any problems or concerns. Future Appointments Date Time Provider Department Center 10/27/2020 2:20 PM Arlene Costello MD [facility] OBG 5L [facility] Call your doctor if you develop: ?? [...] file Gets together: Not on file Attends caodaism service: Not on file Active member of [...] hysterectomy. She may have a consult with Emergency Vehicle Dispatcher Oncology if interested to discuss weight loss [...] Note ?? Patient Name: Cecilia Connelly : [id number] MR#: [id number] ?? Case Date: 09/22/2020 ?? Surgeon: Surgeon(s) [...] She was positioned indorsal supine [facility], then prepped and draped in the usual sterile fashion. A time-out was performed with all team members in agreement to proceed. A non-conducting Graves speculum was inserted into the vagina and with significant retraction efforts by the assistant chief train dispatcher, the anterior lip of the cervix was [...] and Gynecology 09/22/2020 Associated attestation - Jennifer Balir MD - 09/23/2020 10:00 PM EST Attestation: Case Date: 09/22/2020 I was present and I participated during the entire procedure (does not need to include opening and closing). Jennifer Blair MD 09/23/2020 * Brief Op Note - Jennifer Blair MD - 09/22/2020 10:55 AM EST Brief Operative Note Patient Name: Cecilia Connelly : [id number] MR#: [id number] Case Date: 09/22/2020 Surgeon: Surgeon(s) and Role: [...] 09/22/2020 10:38 AM EST Remove Intrauterine Device (74442) 09/22/2020 9:47 AM EST CERVICAL DYSPLASIA Conization Cervix W/Wo D&C Rpr Electrode Excision (51624) 09/22/2020 9:47 AM EST CERVICAL DYSPLASIA POCT GLUCOSE Routine 09/22/2020 9:29 AM EST POCT URINE Routine 09/22/2020 documented in this encounter Results * Specimen to Pathology (09/22/2020 10:43 AM EST) AP Specimen 09/22/2020 10:4 3 AM EST 09/22/2020 10:43 AM EST [facility] - 09/22/2020 10:43 AM EST Specimen requisition ordered. ??Separate Pathology report to follow Jennifer Blair MD PATHOLOGY/CYTOLOGY O CHEO Performing Organization Address [facility] de Phone Number [facility] [place] [address] * Specimen to Pathology (09/22/2020 10:43 AM EST) AP Specimen 09/22/2020 10:4 3 AM EST 09/22/2020 10:43 AM EST Narrative [facility] - 09/22/2020 10:43 AM EST Specimen requisition ordered. ??Separate Pathology report to follow Jennifer Blair MD PATHOLOGY/CYTOLOGY O CHEO Performing Organization Address [facility] [place] [address] * Specimen to Pathology (09/22/2020 10:43 AM EST) AP Specimen 09/22/2020 10:4 3 AM EST 09/22/2020 10:43 AM EST Narrative [facility] - 09/22/2020 10:43 AM EST Specimen requisition ordered. ??Separate Pathology report to follow Jennifer Blair MD PATHOLOGY/CYTOLOGY O CHEO Performing Organization Address [facility] [place] [address] * Surgical Pathology Report (09/22/2020 10:38 AM EST) Final Diagnosis [id number] ? Location: [facility]; [facility]; A The signing pathologist has (i) examined [...] Sheridan DO Verified: ??09/28/2020 ?Pathologist Performed at: ??-[facility] Dept. of Pathology, [place], [place] DISCUSSION Deeper levels were examined. SPECIMEN(S) [...] labeled C1. ??rh 09/28/2020 11:51 AM EST [facility] ENDOCERVICAL STRUCTURE / Unknown 09/22/2020 10:38 AM EST 09/22/2020 10:38 AM EST SPECIMEN FROM CERVIX OR VAGINA / Unknown 09/22/2020 10:38 AM EST 09/22/2020 10:38 AM EST ENDOCERVICAL STRUCTURE / Unknown 09/22/2020 10:38 AM EST 09/22/2020 10:38 AM EST Jennifer Blair MD PATHOLOGY/CYTOLOGY O CHEO Performing Organization Address City/[facility] [address]/ZIP Co de Phone Number [facility] [place] [address] * POCT Glucose (09/22/2020 9:29 AM EST) Glucose, POC 95 65 - 199 mg/dL [facility] Comment: Supplemental ranges: <140 mg/dL before meals <180 mg/dL all other times of the day Blood specimen (specimen) 09/22/2020 9:29 AM EST 09/22/2020 9:29 AM EST Jennifer Blair MD POINT OF CARE TEST O RDGEO [facility] [place] [address] * POCT urine (09/22/2020) POC Urine HCG Negative Negative - Negative POC Control Internal Controls Acceptable 09/22/2020 Jennifer Blair MD POINT OF CARE TEST O RDERABLES documented in this encounter Visit Diagnoses Diagnosis Cervical dysplasia Dysplasia of cervix, unspecified Cervical dysplasia Dysplasia of cervix, unspecified documented in this encounter Administered Medications Inactive [...] Day of Surgery (Day of Procedure), Routine sodium chloride 0.9 % (flush) flush 5-20 [...] Routine documented in this encounter Care Teams Technology Officer Relationship Specialty Start Date End Date Char Alexandre APRN PCP - General Family Medicine 04/22/20 07/28/21 documented as of this encounter
--- OUTSIDE RECORDS SUMMARY | 2024-07-15 21:46 | XMS_ITS | Encounter Summary ---
Author Organization [facility] Address [facility] [place] [address] Care Team Providers Care Houseperson Name Role Phone Char Alexandre APRN Primary Care Provider + Encounter Details Date Type Department Care Team (Late st Contact Info) Description 04/11/2021 Telephone Obstetrics [place] [phone] Jennifer Blair MD [facility] [address] [place] [address] Social History Tobacco Use Types Packs/Day Years [...] Telephone Encounter - Jennifer Blair MD - 04/11/2021 1:19 PM EDT Phone Note Cecilia had called to see if she should still come in for her pap today, day #1 of her menses and day#1 is usually heavy for her. Discussed risk of unsatisfactory sample while bleeding and given h/o very difficult pap smears, recommend rescheduling. Next week would be ideal with her bleeding schedule. Offered to schedule now, but she declined stating she started a new job and does not have her schedule. She will myDH us with date/time options. Jennifer Blair MD documented in this encounter Plan of Treatment Not on file documented as of this encounter Visit Diagnoses Not on filedocumented in this encounter Care Teams Houseperson Relationship Specialty Start Date End Date Char Alexandre APRN PCP - General Family Medicine 04/22/20 07/28/21 documented as of this encounter
--- OUTSIDE RECORDS SUMMARY | 2024-07-15 21:46 | XMS_ITS | Encounter Summary ---
Author Organization [facility] Address [facility] [place] [address] Care Team Providers Care Logging Operations Inspector Name Role Phone Baldomero Char Contreras APRN Primary Care Provider + Encounter Details Date Type Department Care Team (Late st Contact Info) Description 09/11/2020 Telephone Obstetrics [place] [phone] Staci Hunt MD [facility] DR OBSTETRICS & [place] [address] Social History Tobacco Use Types Packs/Day Years Used Date Smoking Tobacco: Former Smokeless Tobacco: Never Sex and Gender Information Value Date Recorded Sex Assigned at Not on file Gender Identity Female 09/20/2020 2:54 PM EST Sexual Orientation Not on file documented as of this encounter Miscellaneous Notes * Telephone Encounter - Staci Hunt - 09/11/2020 4:47 PM EST Patient calling with report of feeling something pinching and felt a gush and looked and saw blood,when she wiped she saw fragments of what she thinks were her IUD strings. She has been having mild cramping and has been having light vaginal bleeding for 2 weeks, since resuming intercourse. She reports she also had stabbing left-sided pain after that episode of intercourse which stopped last weekend. She has changed her pad 3 times today which is more frequent than on preceding days. She denies fevers or other vaginal discharge. IUD was placed 05/2020 and she had an US 07/21/2020 showing IUD possibly with right arm embedded in myometrium. She reports she is using the IUD for menstrual management and does not rely on it for contraception. Discussed that possible IUD expulsion would not necessarily require emergent evaluation assuming she is not having worsening pain or heavy bleeding. If expulsed, she could anticipate having resumption of menses but if bleeding were to become heavier than her typical menses or if pain were to becomesevere I would like her to call us back. I also reiterated that she cannot rely on IUD for contraception if there is question of expulsion. Otherwise would plan to have a clinic RN call her on Sunday to check in and determine whether she should be seen for pelvic exam or ultrasound prior to planned LEEP on 09/22/2019. Patient is in agreement with plan. Staci Hunt MD, PGY4 Staci Hunt MD documented in this encounter Plan of Treatment Not on file documented as of this encounter Visit Diagnoses Not on filedocumented in this encounter Care Teams Logging Operations Inspector Relationship Specialty Start Date End Date Char Alexandre APRN PCP - General Family Medicine 04/22/20 07/28/21 documented as of this encounter
--- OUTSIDE RECORDS SUMMARY | 2024-07-15 21:46 | XMS_ITS | Encounter Summary ---
Author Organization [facility] [address] Care Team Providers Care Light Bulb Replacer Name Role Phone Char Alexandre APRN Primary Care Provider + Reason for Visit * Reason Onset Date Comments Questions 07/07/2020 Encounter Details Date Type Department Care Team ([facility] Contact Info) Description 07/07/2020 Telephone Obstetrics [place] [phone] Mora Rao I, RN Questions Social History Tobacco Use Types Packs/Day Years Used Date Smoking Tobacco: Former Smokeless Tobacco: Never Sex and Gender Information Value Date Recorded Sex Assigned at Not on file Gender Identity Female 09/20/2020 2:54 PM EST Sexual Orientation Not on file documented as of this encounter Miscellaneous Notes * Telephone Encounter - Mora Rao I RN - 07/07/2020 4:41 PM EDT TELEPHONE NOTE Caller: Cecilia Reason for call: Questions about coordinating appts. Assessment: Patient coming to clinic for procedure on 07/21/20. Patient inquiring if she could have her ultrasound done that same day. There are no current orders for ultrasound in the medical record.Patient states that Dr. Costello wanted her to get an ultrasound in September. Because of logistics, patient was wondering if she could have it done before her colposcopy on 07/21/20 Plan/Instructions: Will follow-up with Dr. Costello to see if this is a reasonable request and will get back to patient with answer. documented in this encounter Plan of Treatment Not on file documented as of this encounter Visit Diagnoses Not on filedocumented in this encounter Care Teams Light Bulb Replacer Relationship Specialty Start Date End Date Char Alexandre APRN PCP - General Family Medicine 04/22/20 07/28/21 documented as of this encounter
--- OUTSIDE RECORDS SUMMARY | 2024-07-15 21:46 | XMS_ITS | Encounter Summary ---
[place] [address] Care Team Providers Care Kiln Pusher Name Role Phone Char Alexandre APRN Primary Care Provider + Reason for Visit * Reason Onset Date Comments Follow-up 09/13/2020 Encounter Details Date Type Department Care Team ([facility] Contact Info) Description 09/13/2020 Telephone Obstetrics [place] [phone] Mora Rao RN Follow-up Social History Tobacco Use Types Packs/Day Years Used Date Smoking Tobacco: Former Smokeless Tobacco: Never Sex and Gender Information Value Date Recorded Sex Assigned at Not on file Gender Identity Female 09/20/2020 2:54 PM EST Sexual Orientation Not on file documented as of this encounter Miscellaneous Notes * Telephone Encounter - Mora Rao RN - 09/13/2020 8:19 AM EST TELEPHONE NOTE Caller: Mora Rao RN Reason for call: Follow-up per Dr. Hunt Assessment: no answer Plan/Instructions: Left benign voicemail message to return the call. documented in this encounter Plan of Treatment Not on file documented as of this encounter Visit Diagnoses Not on filedocumented in this encounter Care Teams Kiln Pusher Relationship Specialty Start Date End Date Char Alexandre APRN PCP - General Family Medicine 04/22/20 07/28/21 documented as of this encounter
--- OUTSIDE RECORDS SUMMARY | 2024-07-15 21:46 | XMS_ITS | Encounter Summary ---
Author Organization [facility] Address [address] [place] [address] Care Team Providers Care Vice President Of Product Marketing Name Role Phone TameraluisaJordan heathgregbelen WHITMAN Unavailable Diane Way Primary Care Provider [phone] Reason for Visit * Reason Onset Date Comments Cardiac Testing 11/26/2023 Encounter Details Date Type Department Care Team (Late st Contact Info) Description 11/26/2023 Telephone [facility] Cardiology Clinic [address] [place] [address] Dion Jeong MD [address] [facility] [address] [place] [phone] Cardiac Testing Social History Tobacco Use Types Packs/Day Years [...] Yes 05/05/2022 documented as of this encounter Miscellaneous Notes * Telephone Encounter - Celia Nuñez, RN - 11/26/2023 1307 EDT Order placed for E-Patch. * Telephone Encounter - Ange Hope - 11/26/2023 1242 EDT Referral from [address] at [facility], for a ZIO patch. Reasoning: ICD-10: R00.2 Palpitations. Please see referral order. Thank you! HP documented in this encounter Plan of Treatment Not on file documented as of this encounter Visit Diagnoses Not on filedocumented in this encounter Care Teams Vice President Of Product Marketing Relationship Specialty Start Date End Date [address] [place] [phone] PCP - General Family Medicine - Primary Care 11/14/23 Whitley Sage MBBS [address] [place] [address], [address] [place] [phone] Consulting Clinician Pulmonary Disease 05/01/22 documented as of this encounter
--- OUTSIDE RECORDS SUMMARY | 2024-07-15 21:46 | XMS_ITS | Encounter Summary ---
Author Organization [facility] Address [address] [place] [address] Care Team Providers Care Leacher Name Role Phone TameraluisaJordan heathgregbelen WHITMAN Unavailable Seamus, Diane Primary Care Provider [phone] Encounter Details Date Type Department Care Team (Latest Contact Info) Description 02/15/2024 Transcribe Orders [facility] - Main [place] [address] [place] [address] Seamus, Diane [address] [place] [address] Hypomagnesemia (Primary Dx); Other fatigue; Iron deficiency anemia, unspecified iron [...] documented as of this encounter Results * VITAMIN B12 (02/15/2024 15:28 EDT) Vitamin B12 841 211 - 911 pg/mL 02/15/2024 18:08 EDT [facility] Blood VENOUS BLOOD / Unknown Venipuncture / Unknown 02/15/2024 15:28 EDT 02/15/2024 15:49 EDT [facility] LABORATORY SERVICES - 02/15/2024 18:08 EDT The results of this assay can be falsely elevated due to the consumption of Biotin. Diane Seamus CHEMISTRY & BLOOD GA S ORDERABLES Performing Organization Address [facility] Co de Phone Number [facility] [address] [place] [address] * FERRITIN (02/15/2024 15:28 EDT) Ferritin 22 11 - 264 ng/mL 02/15/2024 17:53 EDT [facility] Blood VENOUS BLOOD / Unknown Venipuncture / Unknown 02/15/2024 15:28 EDT 02/15/2024 15:49 EDT [facility] LABORATORY SERVICES - 02/15/2024 17:53 EDT The results of this assay can be falsely lowered due to the consumption of Biotin. Diane Seamus CHEMISTRY & BLOOD GA S ORDERABLES Performing Organization Address [facility]/ZIP Co de Phone Number [facility] [address] [place] [address] * IRON (02/15/2024 15:28 EDT) Iron 101 37 - 170 ??g/dL 02/18/2024 18:36 EDT [facility] Blood VENOUS BLOOD / Unknown Venipuncture / Unknown 02/15/2024 15:28 EDT 02/15/2024 15:49 EDT Diane Seamus CHEMISTRY & BLOOD GA S ORDERABLES [facility] [address] [place] [address] * MAGNESIUM (02/15/2024 15:28 EDT) Magnesium 1.8 1.7 - 2.8 mg/dL 02/15/2024 16:20 EDT [facility] Blood VENOUS BLOOD / Unknown Venipuncture / Unknown 02/15/2024 15:28 EDT 02/15/2024 15:49 EDT Diane Seamus CHEMISTRY & BLOOD GA S ORDERABLES [facility] [address] [place] [address] documented in this encounter Visit Diagnoses Diagnosis Hypomagnesemia- Primary Disorders of magnesium metabolism Other fatigue Iron deficiency anemia, unspecified iron deficiency anemia type documented in this encounter Care Teams Leacher Relationship Specialty Start Date End Date Diane [address] [facility] [place] [phone] PCP - General Family Medicine - Primary Care 11/14/23 Whitley Sage MBBS [address] [facility] [place] [address] Consulting Clinician Pulmonary Disease 05/01/22 documented as of this encounter
--- OUTSIDE RECORDS SUMMARY | 2024-07-15 21:46 | XMS_ITS | Encounter Summary ---
Author Organization [facility] [place] [address] Care Team Providers Care Director Of Operations Home Health Name Role Phone Char Alexandre APRN Primary Care Provider + Encounter Details Date Type Department Care Team (Late st Contact Info) Description 09/13/2020 Telephone Obstetrics [place] [phone] Mora Rao I RN Social History Tobacco Use Types Packs/Day Years Used Date Smoking Tobacco: Former Smokeless Tobacco: Never Sex and Gender Information Value Date Recorded Sex Assigned at Not on file Gender Identity Female 09/20/2020 2:54 PM EST Sexual Orientation Not on file documented as of this encounter Miscellaneous Notes * Telephone Encounter - Mora Rao RN - 09/13/2020 10:50 AM EST Erroneous encounter documented in this encounter Plan of Treatment Not on file documented as of this encounter Visit Diagnoses Not on filedocumented in this encounter Care Teams Director Of Operations Home Health Relationship Specialty Start Date End Date Char Alexandre APRN PCP - General Family Medicine 04/22/20 07/28/21 documented as of this encounter
--- OUTSIDE RECORDS SUMMARY | 2024-07-15 21:46 | XMS_ITS | Encounter Summary ---
Author Organization [facility] Address [address] [place] [address] Care Team Providers Care Automatic Clipper Name Role Phone TameraluisaJordan heathgregbelen WHITMAN Unavailable Seamus, Diane Primary Care Provider [phone] Encounter Details Date Type Department Care Team (Latest Contact Info) Description 11/16/2023 Transcribe Orders [facility] Lab - Main [place] [address] [place] [id number] Seamus, Diane [address] [place] [phone] Iron deficiency anemia, unspecified iron deficiency anemia type (Primary Dx) Social History Tobacco Use Types [...] Procedure Name Priority Date/Time Associated Diagnosis Comments VITAMIN B12 Routine 12/03/2023 12:15 EDT Iron deficiency anemia, unspecified iron deficiency anemia type documented in this encounter Results * VITAMIN B12 (12/03/2023 12:15 EDT) Vitamin B12 591 211 - 911 pg/mL 12/03/2023 20:14 EDT [facility] Blood VENOUS BLOOD / Unknown Venipuncture / Unknown 12/03/2023 12:15 EDT 12/03/2023 12:49 EDT Narrative [facility] - 12/03/2023 20:14 EDT The results of this assay can be falsely elevated due to the consumption of Biotin. Diane Seamus CHEMISTRY & BLOOD GA S ORDERABLES [facility] [address] [place] [address] documented in this encounter Visit Diagnoses Diagnosis Iron deficiency anemia, unspecified iron deficiency anemia type- Primary documented in this encounter Care Teams Automatic Clipper Relationship Specialty Start Date End Date Diane [address] [place] [phone] PCP - General Family Medicine - Primary Care 11/14/23 Whitley Sage MBBS [address] [facility] [address] [place] [address] Consulting Clinician Pulmonary Disease 05/01/22 documented as of this encounter
--- OUTSIDE RECORDS SUMMARY | 2024-07-15 21:46 | XMS_ITS | Encounter Summary ---
Author Organization [facility] Address [facility] [place] [address] Care Team Providers Care Latent Print Examiner Name Role Phone Baldomero hCar Contreras APRN Primary Care Provider + Reason for Visit * Auth/Cert Specialty Diagnoses / Procedures Referred By Contac t Referred To Contact Diagnoses Cervical dysplasia CERVICAL DYSPLASIA Procedures PRO CONIZATION CERVIX W/WO D&C RPR ELECTRODE EXCISION CONIZATION OF CERVIX, LOOP ELECTRODE (WRVU 3.67) Referral ID Status Reason Start Date Expiration Date Visits Re quested Visits Authorized [id number] 1 1 Encounter Details Date Type Department Care Team ([facility] st Contact Info) Description 09/22/2020 9:44 AM EST Anesthesia Event [place] [address] Nimo Law MD [facility] [place] [address] Douglas Parks Anesthesia Record Procedure Summary Procedure Name Responsible Anesthesiologist Anesthesia Start Time Anesthesia Stop Time CONIZATION OF CERVIX, LOOP ELECTRODE (WRVU 3.67) (Cervix) Nimo Law MD 09/22/20 0944 09/22/20 1116 Events Date Time Event Comment 09/22/2020 0928 0944 AN Verify 0944 Start 0948 An Start Data 0957 An Induction 1000 An Intubation 1002 Anesthesia Ready 1006 An Data Art Positioning pat ient. 1009 Procedure Start 1058 Extubation/LMA Out 1101 an stop data 1116 Recovery or ICU Handoff Mikayla ent care was transferred to the destination unit staff after review of the patient's medical history, current anesthetic/surgical status and plan, according to the Provider Handoff Checklist. 1116 Stop Meds Name Total Propofol 600 mg Propofol INF 1,106.79 mg fentaNYL 100 mcg Midazolam 2 mg IV Lidocaine 80 mg Dexamethasone 4 mg Ondansetron 4 mg Dexmedetomidine 28 mcg PHENYLephrine 160 mcg ketorolac (Toradol) (30 mg/mL) injection 30 mg lactated ringers infusion 800 mL * Agents Name O2 Air N2O Sevoflurane (et) * Blood No blood administrations on file. Lines, Drains, and Airways Type Details Placement Removal (RETIRED) Peripheral IV Line - Single Lumen 09/22/20; 931; metacarpal vein (top of hand), right; lqnr-wwc-lrepog catheter system; 20 gauge; PEDRO Wise; distraction, intradermal injection, tolerated well; no longer indicated; 09/22/20; 1230 09/22/20 0932 by Douglas Parks CRNA 09/22/20 1230 by Sherry Pittman RN Supraglottic Mask Ventilation: Adjunct (2); LMA Type: iGel; LMA Size: 4; Inserted by: PEDRO Wise; Removal Date: 09/22/20; Removal Time: 1058 09/22/20 1000 by Douglas Parks CRNA 09/22/20 1058 by Douglas Parks CRNA documented in this encounter Social History Tobacco [...] OR Notes * Anesthesia Postprocedure Evaluation - Nimo Law MD - 09/23/2020 7:29 PM EST Department of Anesthesiology Post-procedure Note Patient: Cecilia Connelly Procedure Summary Date: 09/22/20 Room / Location: [address] MAIN OR Anesthesia Start: 943 Anesthesia Stop: 1116 Procedures: CONIZATION OF CERVIX, LOOP ELECTRODE (WRVU 3.67) (N/A Cervix) (MSURG) REMOVAL IUD, VAGINAL APPROACH (WRVU 1.27) (N/A Uterus) Diagnosis: (CERVICAL DYSPLASIA) Surgeon: Jennifer Blair MD Responsible Provider: Nimo Law MD Anesthesia Type: general ASA Status: 2 All Anesthesia Providers: Anesthesiologist: Nimo Law MD Student Nurse Straw Hat Brim Raiser Operator: Douglas Parks Vitals Value Taken Time BP 117/79 09/22/20 1130 Temp Pulse Resp SpO2 100 % 09/22/20 1137 Pain Level 5 09/22/20 1220 Vitals shown include unvalidated device data. Patient Location: PACU/[facility] Level of Consciousness: Awake and Alert Pain Management: Satisfactory Analgesia PONV: None Cardiovascular Status: At Baseline Respiratory Status: Supplemental O2 (NC or FM) Postoperative Fluid Status: Intravascular EUvolemia Possible Anesthetic Complications: NONE apparent at time of evaluation Final Primary Anesthesia Type: General (The anesthetic type performed was the same as planned.) Comments: * Anesthesia Preprocedure Evaluation - Nimo Law MD - 09/21/2020 10:30 PM EST Pre-Anesthesia Evaluation for: Cecilia Connelly a 35 y.o. female. Procedure(s): CONIZATION OF CERVIX, LOOP ELECTRODE (WRVU 3.67) There are no active problems to display for this patient. Past Medical History: Diagnosis Date ??? Anemia [...] History Tobacco Use ??? Smoking status: Former Smoker ??? Smokeless tobacco: Never Used Substance Use Topics ??? Alcohol use: Not on file Social History Substance and Sexual Activity Drug Use Not on file No Known Allergies Medications: MAR and/or home medications have been reviewed. Physical Exam: No data found. There is no height or weight on file to calculate BMI. Airway Assessment: Mallampati: II TM distance: >3 FB Neck ROM: full Cardiovascular Assessment: system normal Pulmonary Assessment: pulmonary exam normal Dental Assessment: - normal exam Misc Assessment: Patient is wearing No contact(s). IV access: Peripheral line Anesthesia Plan: ASA 2 general, with a(n) intravenous induction Patient is a 35 yo female with h/o morbid obesity here for a leep. Patient denies CP, SOB or uncontrolled GERD. Plan: GA with LMA. ETT as backup. Standard ASA monitors. Region - Other Informed Consent: Anesthetic plan and risks discussed with patient. Use of blood products discussed with patient who. Plan discussed with MIXING ENGINEER. PAT Clinic Note documented in this encounter Plan of Treatment Not on file documented as of this encounter Visit Diagnoses Not on filedocumented in this encounter Administered Medications Inactive Administered Medications - up to 3 most recent administrations Medication Order MAR Action Action Date Dose Rate Site dexamethasone (Decadron) injection Intravenous, PRN, Starting on Sun09/22/20 at 1004, Until Sun09/22/20 at 1116, Anesthesia Intra-op, Routine Given 09/22/2020 10:04 AM EST 4 mg dexmedetomidine (Precedex) (4 mcg/mL) bolus injection (Anesthsia) PRN, Starting on Sun09/22/20 at 0959, Until Sun09/22/20 at 1116, Anesthesia Intra-op, Routine Given 09/22/2020 10:21 AM EST 8 mcg Given 09/22/2020 10:12 AM EST 8 mcg Given 09/22/2020 9:59 AM EST 12 mcg fentaNYL (pf) (50 mcg/mL) multi-dose injection Intravenous, PRN, Starting on Sun09/22/20 at 1025, Until Sun09/22/20 at 1116, Anesthesia Intra-op, Routine Given 09/22/2020 10:31 AM EST 50 mcg Given 09/22/2020 10:25 AM EST 50 mcg ketorolac (Toradol) (30 mg/mL) injection PRN, Starting on Sun09/22/20 at 1051, Until Sun09/22/20 at 1116, Anesthesia Intra-op, Routine Given 09/22/2020 10:51 AM EST 30 mg lactated ringers infusion 1,000 mL, at 100 mL/hr, Intravenous, CONTINUOUS, Starting on Sun09/22/20 at 0915, Until Sun09/22/20 at 1244, Day of Surgery (Day of Procedure) New Bag 09/22/2020 9:44 AM EST lidocaine (pf) (Xylocaine) (20 mg/mL) 2% injection syringe Intravenous, PRN, Starting on Sun09/22/20 at 0956, Until Sun09/22/20 at 1116, Anesthesia Intra-op, Routine Given 09/22/2020 9:56 AM EST 80 mg midazolam (pf) (Versed) (1 mg/mL) multi-dose injection Intravenous, PRN, Starting on Sun09/22/20 at 0944, Until Sun09/22/20 at 1116, Anesthesia Intra-op, Routine Given 09/22/2020 9:44 AM EST 2 mg ondansetron (pf) (Zofran) (2 mg/mL) injection Intravenous, PRN, Starting on Sun09/22/20 at 1004, Until Sun09/22/20 at 1116, Anesthesia Intra-op, Routine Given 09/22/2020 10:04 AM EST 4 mg PHENYLephrine in NS (PF) (PARMJIT-SYNEPHRINE) 0.8 mg/10 mL (80 mcg/mL) multi-dose injection Syrg PRN, Starting on Sun09/22/20 at 1024, Until Sun09/22/20 at 1116, Anesthesia Intra-op, Routine Given 09/22/2020 10:40 AM EST 80 mcg Given 09/22/2020 10:24 AM EST 80 mcg propofoL (Diprivan) 10 mg/mL bolus injection (Anesthesia) Intravenous, PRN, Starting on Sun09/22/20 at 0957, Until Sun09/22/20 at 1116, Anesthesia Intra-op Given 09/22/2020 10:47 AM EST 100 mg Given 09/22/2020 10:31 AM EST 50 mg Given 09/22/2020 10:09 AM EST 50 mg propofoL (Diprivan) infusion Intravenous, CONTINUOUS PRN, Starting on Sun09/22/20 at 0957, Until Sun09/22/20 at 1116, Anesthesia Intra-op, Routine Rate/Dose Change 09/22/2020 10:20 AM EST 100 mcg/kg/min 110.2 mL/hr Rate/Dose Change 09/22/2020 10:07 AM EST 125 mcg/kg/min 13 7.8 mL/hr New Bag 09/22/2020 9:57 AM EST 150 mcg/kg/min 165.3 mL/ hr documented in this encounter Care Teams Latent Print Examiner Relationship Specialty Start Date End Date Char Alexandre APRN PCP - General Family Medicine 04/22/20 07/28/21 documented as of this encounter
--- OUTSIDE RECORDS SUMMARY | 2024-07-15 21:46 | XMS_ITS | Encounter Summary ---
Author Organization Formerly [facility] Address [facility] [place] [address] Care Team Providers Care Machine Stapler Name Role Phone Char Alexandre APRN Primary Care Provider + Encounter Details Date Type Department Care Team ([facility] st Contact Info) Description 04/18/2021 Telephone Obstetrics [place] [phone] Jennifer Blair MD [facility] [address] OBSTETRICS [place] [address] Social History Tobacco Use Types Packs/Day Years [...] Telephone Encounter - Jennifer Blair MD - 04/18/2021 9:41 PM EDT Obgyn Note Message sent to schedulers to get pap scheduled, needs with MD, extended visit given difficulty visualizing cervix (see LEEP op note). Jennifer Blair MD documented in this encounter Plan of Treatment Not on file documented as of this encounter Visit Diagnoses Not on filedocumented in this encounter Care Teams Machine Stapler Relationship Specialty Start Date End Date Char Alexandre APRN PCP - General Family Medicine 04/22/20 07/28/21 documented as of this encounter
--- OUTSIDE RECORDS SUMMARY | 2024-07-15 21:46 | XMS_ITS | Encounter Summary ---
Author Organization [facility] Address [address] [place] [address] Care Team Providers Care Motorcoach Operator Name Role Phone Whitley Sage Unavailable Diane Way Primary Care Provider [phone] Encounter Details Date Type Department Care Team (Late st Contact Info) Description 12/03/2023 11:55 EDT Phlebotomy Only [facility] - Outpatient Phlebotomy Drawing [address] [place], [place] [address] Lab, [facility] Op Phlebotomy Iron deficiency anemia, unspecified iron deficiency anemia type; Hypomagnesemia Social History Tobacco Use Types Packs/Day [...] Name Priority Date/Time Associated Diagnosis Comments VITAMIN D (25,OH) Routine 12/03/2023 12: 15 EDT Iron deficiency anemia, unspecified iron deficiency anemia type Hypomagnesemia IBC Routine 12/03/2023 12:15 EDT Iron deficiency anemia, unspecified iron deficiency anemia type Hypomagnesemia IRON Routine 12/03/2023 12:15 EDT Iron deficiency anemia, unspecified iron deficiency anemia type Hypomagnesemia documented in this encounter Results * VITAMIN D (25,OH) (12/03/2023 12:15 EDT) 25OH Vitamin D Tot 49 30 - 100 ng/mL 12/03/2023 19:41 EDT [facility] Blood VENOUS BLOOD / Unknown Venipuncture / Unknown 12/03/2023 12:15 EDT 12/03/2023 12:49 EDT Diane Seamus CHEMISTRY & BLOOD GA S ORDERABLES Performing Organization Address [facility] Co de Phone Number [facility] [address] [place] [address] * IBC (12/03/2023 12:15 EDT) Iron Binding Capacity 344 240 - 450 ??g/dL 12/03/2023 18:25 EDT [facility] Blood VENOUS BLOOD / Unknown Venipuncture / Unknown 12/03/2023 12:15 EDT 12/03/2023 12:49 EDT Diane Seamus CHEMISTRY & BLOOD GA S ORDERABLES Performing Organization Address City/[facility] Co de Phone Number [facility] [address] [place] [address] * IRON (12/03/2023 12:15 EDT) Iron 51 37 - 170 ??g/dL 12/03/2023 18:04 EDT [facility] Blood VENOUS BLOOD / Unknown Venipuncture / Unknown 12/03/2023 12:15 EDT 12/03/2023 12:[address] CHEMISTRY & BLOOD GA S ORDERABLES [facility] [address] [place] [address] documented in this encounter Visit Diagnoses Diagnosis Iron deficiency anemia, unspecified iron deficiency anemia type Hypomagnesemia Disorders of magnesium metabolism documented in this encounter Care Teams Motorcoach Operator Relationship Specialty Start Date End Date Diane [address] [place] [phone] PCP - General Family Medicine - Primary Care 11/14/23 Whitley Sage MBBS [address] [facility], [address] [place] [phone] Consulting Clinician Pulmonary Disease 05/01/22 documented as of this encounter
--- OUTSIDE RECORDS SUMMARY | 2024-07-15 21:47 | XMS_ITS | Encounter Summary ---
Author Organization [facility] Address [address] [place] [address] Care Team Providers Care Gripper Attacher Name Role Phone Trisha Jacobson Hoa PANDYA Primary Care Provider + Whitley Sage MBSUSHIL Unavailable Reason for Visit * Reason Onset Date Comments Cerumen Impaction 11/29/2022 Encounter Details Date Type Department Care Team (Late st Contact Info) Description 11/29/2022 Telephone [facility] ENT [address] [place] [address] Abiel Hidalgo MD [address] [place] [address] [phone] Cerumen Impaction Social History Tobacco Use Types Packs/Day Years [...] you have serious difficulty h earing? No 12/26/2021 Because of a physical, menta l, or [...] encounter Miscellaneous Notes * Telephone Encounter - Laura Albrecht - 11/29/2022 1302 EDT Pt called back appt scheduled * Telephone Encounter - Ashleigh Juan - 11/29/2022 1112 EDT Left message to call back to schedule * Telephone Encounter - Laura Albrecht - 11/29/2022 1043 EDT Yes, can use the 9:40 or 10:10 on 11/30 * Telephone Encounter - Ashleigh Juan - 11/29/2022 1022 EDT Cecilia was last seen by Dr. Hidalgo March of 2022 for ear infections/ear cleaning. Was to come back in 3 weeks and never made the appointment. Is needing an appointment for a cleaning so she can hear again. Can I use one of our openings tomorrow or she needs to be booked out? documented in this encounter Plan of Treatment Not on file documented as of this encounter Visit Diagnoses Not on filedocumented in this encounter Care Teams Gripper Attacher Relationship Specialty Start Date End Date Trisha Jacobson APRN [address] [place] [address] [place] [phone] PCP - General 08/28/21 11/13/23 Whitley Sage MBBS [address] [place] [address], [address] [place] [address] Consulting Clinician Pulmonary Disease 05/01/22 documented as of this encounter
--- OUTSIDE RECORDS SUMMARY | 2024-07-15 21:47 | XMS_ITS | Encounter Summary ---
Author Organization [facility] Address [address] [place] [address] Care Team Providers Care Rfid Engineer Name Role Phone Kavon Trisha Camara APRN Primary Care Provider + Whitley Sage Unavailable Diane [address] Primary Care Provider [phone] Reason for Visit * Reason Comments Medications Refill Encounter Details Date Type Department Care Team (Late st Contact Info) Description 10/14/2022 Refill [facility] Pulmonology [address] [facility] [place], [place] [phone] Whitley Sage MBBS [address] [facility] [address] [place] [address] Medications Refill Social History Tobacco Use Types Packs/Day Years Used Date Smoking Tobacco: Former Cigarettes 1 2 - 2013 Smokeless Tobacco: Never Comments:edible [...] Yes 05/05/2022 documented as of this encounter Ordered Prescriptions Prescription Sig Dispensed Refills Start Date End Da te SPIRIVA WITH HANDIHALER 18 mcg inhalation capsuleIndications:Asth ma in adult, moderate persistent, uncomplicated INHALE THE CONTENTS OF ONE CAPSULE VIA HANDIHALER BY MOUTH EVERY DAY 90 Capsule 10/16/2022 03/05/2023 documented in this encounter Plan of Treatment Not on file documented as of this encounter Visit Diagnoses Diagnosis Asthma in adult, moderate persistent, uncomplicated documented in this encounter Discontinued Medications Medication Sig Discontinue Reason Start Date End Da te tiotropium (SPIRIVA) 18 mcg inhalation capsuleIndications:Asthma in adult, moderate persistent, uncomplicated Inhale 1 capsule as directed daily. 05/05/2022 10/16/2022 documented as of this encounter Additional Health Concerns Infection Onset Date Last Indicated Resolved Time R/O COVID-19 11/06/2023 11/06/2023 11/06/2023 18:3 2 EST documented as of this encounter Care Teams Rfid Engineer Relationship Specialty Start Date End Date Trisha Jacobson APRN [address] [place] [address] PCP - General 08/28/21 11/13/[address] [place] [address] PCP - General Family Medicine - Primary Care 11/14/23 Whitley Sage MBBS [address] [place] [address], [address] [place] [phone] Consulting Clinician Pulmonary Disease 05/01/22 documented as of this encounter
--- OUTSIDE RECORDS SUMMARY | 2024-07-15 21:47 | XMS_ITS | Encounter Summary ---
Author Organization [facility] Address [address] [place] [address] Care Team Providers Care Social Media Marketer Name Role Phone Trisha Jacobson Hoa PANDYA Primary Care Provider + Whitley Sage MBSUSHIL Unavailable Encounter Details Date Type Department Care Team ([facility] Contact Info) Description 04/11/2023 Documentation Visit [facility] [address] [place] [address] Kendra Fuller, PT [address] [place] [address] Social History Tobacco Use Types Packs/Day Years [...] Yes 05/05/2022 documented as of this encounter Progress Notes * Kendra Fuller, PT - 04/11/2023 1984 EDT [facility] [phone] Physical Therapy Discharge Not Seen Recently Therapy Diagnosis: decreased standing and walking tolerance due 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 Referring Clinician: Trisha Jacobson APRN Reporting Period: last seen 11/16/22 Physical Therapy Program to Date: In summary, the program has included: aquatics Goal Review: NT Discharge Reason: Non-compliant with appointments Discharge patient at this time; future therapy will require a new physician's referral. documented in this encounter Plan of Treatment Not on file documented as of this encounter Visit Diagnoses Not on filedocumented in this encounter Care Teams Social Media Marketer Relationship Specialty Start Date End Date Trisha Jacobson APRN [address] [place] [phone] PCP - General 08/28/21 11/13/23 Whitley Sage MBBS [address] [place] [address], [address] [place] [phone] Consulting Clinician Pulmonary Disease 05/01/22 documented as of this encounter
--- OUTSIDE RECORDS SUMMARY | 2024-07-15 21:47 | XMS_ITS | Encounter Summary ---
Author Organization [facility] Address [address] [place] [address] Care Team Providers Care Hotel Superintendent Name Role Phone JacobsonDanyel banerjeebraden Camara APRN Primary Care Provider + Whitley Sage MBSUSHIL Unavailable Encounter Details Date Type Department Care Team ([facility] Contact Info) Description 06/29/2022 13:15 EDT Phlebotomy Only [facility] - Outpatient Phlebotomy Drawing [address] [place], [place] [phone] Lab, [facility] Op Phlebotomy Hypomagnesemia; Vitamin D deficiency; Restless legs Social History Tobacco Use Types Packs/Day Years [...] Associated Diagnosis Comments VITAMIN D (25,OH) Routine 06/29/2022 13: 21 EDT Hypomagnesemia Vitamin D deficiency Restless legs MAGNESIUM Routine 06/29/2022 13:21 EDT Hypomagnesemia Vitamin D deficiency Restless legs FERRITIN Routine 06/29/2022 13:21 EDT Hypomagnesemia Vitamin D deficiency Restless legs VITAMIN B12 Routine 06/29/2022 13:21 EDT Hypomagnesemia Vitamin D deficiency Restless legs documented in this encounter Results * FERRITIN (06/29/2022 13:21 EDT) Ferritin 18 11 - 264 ng/mL 06/29/2022 14:57 EDT [facility] Blood VENOUS BLOOD / Unknown Venipuncture / Unknown 06/29/2022 13:21 EDT 06/29/2022 13:[address] [facility] - 06/29/2022 14:57 EDT The results of this assay can be falsely lowered due to the consumption of Biotin. Shauna Kramer MD CHEMISTRY & BLOOD GA S ORDERABLES Performing Organization Address City/State/[facility] Co de Phone Number [facility] [address] [place] [address] * VITAMIN B12 (06/29/2022 13:21 EDT) Vitamin B12 647 211 - 911 pg/mL 06/29/2022 14:57 EDT [facility] Blood VENOUS BLOOD / Unknown Venipuncture / Unknown 06/29/2022 13:21 EDT 06/29/2022 13:[address] [facility] - 06/29/2022 14:57 EDT The results of this assay can be falsely elevated due to the consumption of Biotin. Shauna Kramer MD CHEMISTRY & BLOOD GA S ORDERABLES Performing Organization Address City/[facility]/ZIP Co de Phone Number [facility] [address] [place] [address] * VITAMIN D (25,OH) (06/29/2022 13:21 EDT) 25OH Vitamin D Tot 43 30 - 100 ng/mL 06/29/2022 14:57 EDT [facility] Blood VENOUS BLOOD / Unknown Venipuncture / Unknown 06/29/2022 13:21 EDT 06/29/2022 13:32 EDT Shauna Kramer MD CHEMISTRY & BLOOD GA S ORDERABLES Performing Organization Address [facility] Co de Phone Number [facility] [address] [place] [address] * MAGNESIUM (06/29/2022 13:21 EDT) Magnesium 1.7 1.7 - 2.8 mg/dL 06/29/2022 14:01 EDT [facility] Blood VENOUS BLOOD / Unknown Venipuncture / Unknown 06/29/2022 13:21 EDT 06/29/2022 13:32 EDT Shauna Kramer MD CHEMISTRY & BLOOD GA S ORDERABLES Performing Organization Address City/[facility] Co de Phone Number [facility] [address] [place] [address] documented in this encounter Visit Diagnoses Diagnosis Hypomagnesemia Disorders of magnesium metabolism Vitamin D deficiency Unspecified vitamin D deficiency Restless legs Restless legs syndrome (RLS) documented in this encounter Care Teams Hotel Superintendent Relationship Specialty Start Date End Date Trisha Jacobson APRN [address] [place] [phone] PCP - General 08/28/21 11/13/23 Whitley Sage MBBS [address] [place] [address], [address] [place] [phone] Consulting Clinician Pulmonary Disease 05/01/22 documented as of this encounter
--- OUTSIDE RECORDS SUMMARY | 2024-07-15 21:47 | XMS_ITS | Encounter Summary ---
Author Organization [facility] Address [address] [place] [address] Care Team Providers Care Rn Transitional Care Name Role Phone JacobsonTrisha banerjee Hoa PANDYA Primary Care Provider + Whitley Sage MBBS Unavailable Encounter Details Date Type Department Care Team (Latest Contact Info) Description 11/30/2022 Travel Social History Tobacco Use Types Packs/Day [...] 9:31 EDT Sexual Orientation Not on file COVID-19 Exposure Response Date Recorded In the last 10 days, have yo u been in contact with someone who was confirmed or suspected to have Coronavirus/COVID-19? No / Unsure 11/30/2022 10:07 EDT documented as of this encounter Functional Status [...] on filedocumented in this encounter Care Teams Rn Transitional Care Relationship Specialty Start Date End Date Trisha Jacobson APRN [address] [place] [phone] PCP - General 08/28/21 11/13/23 Whitley Sage MBBS [address] [place] [address], [address] [place] [address] Consulting Clinician Pulmonary Disease 05/01/22 documented as of this encounter
--- OUTSIDE RECORDS SUMMARY | 2024-07-15 21:47 | XMS_ITS | Encounter Summary ---
Author Organization [facility] Address [address] [place] [address] Care Team Providers Care Non Garment Sewing Machine Operator Name Role Phone JacobsonTrisha banerjee Hoa PANDYA Primary Care Provider + Whitley Sage MBSUSHIL Unavailable Reason for Visit * Reason Comments Conjunctivitis Cough Nasal Congestion Sore Throat Encounter Details Date Type Department Care Team (Late st Contact Info) Description 11/08/2023 9:15 EST Walk-In [address] [address] Nicole Zazueta PA-C [address] [facility] [address] [place] [address] Acute conjunctivitis of both eyes, unspecified acute conjunctivitis type (Primary Dx) Social History Tobacco Use [...] Sign Reading Time Taken Comments Blood Pressure 142/82 11/08/2023 0955 EST Pulse 77 11/08/2023 0955 EST Temperature 36.9 ??C (98.4 ??F) 11/08/2023 0955 EST Respiratory Rate - - Oxygen Saturation 100% 11/08/2023 0955 EST Inhaled Oxygen Concentration - - Weight - - Height - - Body Mass Index - - documented in this encounter Functional Status Functional Status Response [...] as of this encounter Patient Instructions * Attachments The following attachments cannot be sent through Care Everywhere. * Conjunctivitis (Jamaican) documented in this encounter Progress Notes * Aisha Galloway LPN - 11/08/2023914 EST CC/HPI: pt reports that she believes she has pink eye. Pt was here on Sunday. Covid Screening: In the last 72 hours, has the patient had: New or unusual cough, shortness of breath, new nasal congestion, sore throat, fever, chills, body aches, or new loss of taste or smell without a reasonable alternative diagnosis*? (If yes, assign to ARC)- cough,sob,nasal congestion,s/t,chills,body aches In the past 10 days, has the patient had a positive Covid test OR a confirmed close Covid exposure (<6ft for > 15mins in 24hr period)? (if yes, assign to ARC, regardless of vaccination status)-no *may be determined by RN or in discussion with available provider (CASH REGISTER SERVICER's and CCA's can defer to Charge Nurse to complete triage when appropriate) PCP: Trisha Jacobson * Nicole Zazueta PA-C - 11/08/2023 0915 EST [facility] Chief Complaint(s): Chief Complaint Patient presents with Conjunctivitis Cough Nasal Congestion Sore Throat Assessment & Plan: 1. Acute conjunctivitis of both eyes, unspecified acute conjunctivitis type New Prescriptions No medications on file No evidence of bacterial infection, reassurance given. I did recommend artificial tears to aid withdry eyes or viral conjunctivitis. Discussed proper hand hygiene and indications for return. Declined AVS as I will be available on her portal. HPI: 38-year-old woman presents with concern for bilateral conjunctivitis first noticed upon waking thismorning. Eyes were bit red and crusty, it seems to have improved over the morning. Her daughter is here for eval of the same. Her whole household has been dealing with a cold, and they were in 2 daysago for eval of the cold. Ice have been very itchy. Her other daughter who is not here today was treated for pinkeye. ROS: Review of Systems Constitutional: Negative for chills and fever. Eyes: Positive for discharge and redness. Negative for blurred vision and pain. Objective: Vitals and nursing notes reviewed Examination: BP (!) 142/82 (BP Cuff Location: Right arm, BP Patient Position: Sitting, BP Cuff Sizes: Adult, large) Comment (BP Cuff Location): lower Pulse 77 Temp 36.9 ??C (98.4 ??F) (Oral) SpO2 100% Physical Exam Constitutional: General: She is not in acute distress. Appearance: Normal appearance. HENT: Head: Normocephalic and atraumatic. Right Ear: Tympanic membrane normal. Left Ear: Tympanic membrane normal. Eyes: Extraocular Movements: Extraocular movements intact. Pupils: Pupils are equal, round, and reactive to light. Comments: Mild chemosis of both eyes, no conjunctival injection and no visible discharge. Pulmonary: Effort: Pulmonary effort is normal. Neurological: General: No focal deficit present. Mental Status: She is alert. This note was prepared using voice recognition software and the EMR. There may be inadvertent errors and omissions. An appropriate medical screening examination was performed. The patient was assessed prior to discharge and deemed stable for discharge home. documented in this encounter Plan of Treatment Not on file documented as of this encounter Visit Diagnoses Diagnosis Acute conjunctivitis of both eyes, unspecified acute conjunctivitis type- Primary documented in this encounter Discontinued Medications Medication Sig Discontinue Reason Start Date End Da te DM/p-ephed/acetaminoph/ doxylam (NYQUIL ORAL) Take by mouth at bedtime as needed. Therapy completed 11/08/2023 DM/pseudoephed/acetamin ophen (VICKS DAYQUIL ORAL) Take by mouth as needed. Therapy completed 11/08/2023 glucosamine/chondr anguiano A sod (OSTEO BI-FLEX ORAL) Take by mouth 2 times daily. Therapy completed 11/08/2023 Lactobacillus acidophilus (PROBIOTIC) 10 billion cell capsule Take by mouth daily. Therapy completed 0 11/08/2023 lactobacillus rhamnosus, GG, (CULTURELLE) 10 billion cell capsule Take 1 Capsule by mouth daily. Therapy completed 11/08/2023 lactose-reduced food (NUTRITIONAL SUPPLEMENT ORAL) Take by mouth. Therapy completed 11/08/2023 magnesium oxide (MAG-OX) 400 mg (241.3 mg magnesium) tablet Take 2,000 mg by mouth 2 times daily. Therapy completed 11/08/2023 melatonin 5 mg tablet,disintegrating 2 tabs at hs Therapy completed 01/20/2022 11/08/19 UNABLE TO FIND Magnesium ?? 4 tabs daily Alternate therapy 11/08/2023 documented as of this encounter Care Teams Non Garment Sewing Machine Operator Relationship Specialty Start Date End Date Trisha Jacobson APRN [address] [place] [phone] PCP - General 08/28/21 11/13/23 Whitley Sage MBBS [address] [place] [address], [address] [place] [address] Consulting Clinician Pulmonary Disease 05/01/22 documented as of this encounter
--- OUTSIDE RECORDS SUMMARY | 2024-07-15 21:47 | XMS_ITS | Encounter Summary ---
Author Organization [facility] Address [address] [place] [address] Care Team Providers Care Cook Barbecue Name Role Phone JacobsonDanyel banerjeebraden Camara APRN Primary Care Provider + Whitley Sage MBSUSHIL Unavailable Encounter Details Date Type Department Care Team ([facility] Contact Info) Description 09/11/2023 14:50 EST Phlebotomy Only [facility] - Outpatient Phlebotomy Drawing [address] [place], [place] [address] Lab, [facility] Op Phlebotomy Hypomagnesemia Social History Tobacco Use Types Packs/Day [...] Priority Date/Time Associated Diagnosis Comments MAGNESIUM Routine 09/11/2023 14:59 EST Hypomagnesemia documented in this encounter Results * MAGNESIUM (09/11/2023 14:59 EST) Magnesium 2.0 1.7 - 2.8 mg/dL 09/11/2023 15:37 EST [facility] Comment:Slight hemolysis jules ntified, interpret with caution as results may be affected due to hemolysis. Blood VENOUS BLOOD / Unknown Venipuncture / Unknown 09/11/2023 14:59 EST 09/11/2023 15:09 EST Diane Seamus CHEMISTRY & BLOOD GA S ORDERABLES [facility] [address] [place] [address] documented in this encounter Visit Diagnoses Diagnosis Hypomagnesemia Disorders of magnesium metabolism documented in this encounter Care Teams Cook Barbecue Relationship Specialty Start Date End Date Trisha Jacobson APRN [address] [place] [phone] PCP - General 08/28/21 11/13/23 Whitley Sage MBBS [address] [facility] [address] [place] [phone] Consulting Clinician Pulmonary Disease 05/01/22 documented as of this encounter
--- OUTSIDE RECORDS SUMMARY | 2024-07-15 21:47 | XMS_ITS | Encounter Summary ---
Author Organization [facility] Address [address] [place] [address] Care Team Providers Care Book Shelver Name Role Phone Trisha Jacobson Hoa PANDYA Primary Care Provider + Whitley Sage Unavailable Reason for Visit * Reason Comments Follow-up Encounter Details Date Type Department Care Team ([facility] Contact Info) Description 03/05/2023 13:30 EDT Office Visit [facility] [place] [address], [place] [address] Whitley Sage MBBS [address] [facility] [place] [address] Asthma in adult, moderate persistent, uncomplicated (Primary Dx) Social History Tobacco Use Types [...] Sign Reading Time Taken Comments Blood Pressure 120/80 03/05/2023 1327 EDT hard t o hear, used regular cuff on lower arm Pulse 100 03/05/2023 1327 EDT Temperature - - Respiratory Rate 16 03/05/2023 1327 EDT Oxygen Saturation 97% 03/05/2023 1327 EDT Inhaled Oxygen Concentration - - Weight 172.4 kg (380 lb) 03/05/2023 1327 EDT Height - - Body Mass Index 65.23 01/04/2023 0843 EDT documented in this encounter Functional Status Functional [...] this encounter Patient Instructions * Patient Instructions* Whitley Sage MBBS - 03/05/2023 13:30 EDT Continue current inhalers Start exercise regimen documented in this encounter Progress Notes * Whitley Sage MBBS - 03/05/2023 1330 EDT Images from the original note were not included. Pulmonary Consultation PCP: Trisha Jacobson Chief Complaint Patient presents with ??? Follow-up This note may be in part documented using [employer] dictation software. Please forgive any errors, omissions or typos that may result from use of dictation. Assessment & Plan Cecilia Connelly is a 38 y.o. female who presents today for Follow Up Consult of asthma. Pertinent medical history includes, but is not limited to asthma, gerd, MEY on bipap , HTN . Ex-smoker, quit 2013, 10 pack years.??. Asthma in adult, moderate persistent, uncomplicated - type II/allergic (midly elevated IgE) Vs obesity related - well controlled after starting gluten free diet - on advair and albuterol inhaler as needed - also discussed about role of obesity on lung function and asthma in last visit ?? Instructions to Patient Patient Instructions Continue current inhalers Start exercise regimen Return to Clinic: As needed Subjective History ??? Patient changed to gluten free diet per GI advise for IBS ??? Since then (December 2022) her breathing is significantly ??? No exacerbations since changing to this diet , she also stopped LAMA inhaler ??? Not used rescue inhaler at all ??? No night time symptoms ??? No Er visits/ urgent care visit/ exacerbations since last visit ??? Recurrent COVID 19 infection in Oct 2022 - treated as outpatient with paxlovid ??? Has lost 40-50 lbs Review of Systems Constitutional: Negative for fever. Respiratory: Negative for hemoptysis. Cardiovascular: Negative for chest pain. Gastrointestinal: Negative for heartburn. Genitourinary: Negative for hematuria. Skin: Negative for rash. Endo/Heme/Allergies: Negative for environmental allergies. Objective Findings: BP 120/80 Comment: hard to hear, used regular cuff on lower arm Pulse 100 Resp 16 Wt (!) 172.4 kg (380 lb) SpO2 97% BMI 65.23 kg/m?? Physical Exam Constitutional: General: She is not in acute distress. Appearance: She is not diaphoretic. HENT: Nose: No mucosal edema. Right Sinus: No maxillary sinus tenderness. Left Sinus: No maxillary sinus tenderness. Cardiovascular: Rate and Rhythm: Normal rate and regular rhythm. Heart sounds: No murmur heard. Pulmonary: Breath sounds: Normal breath sounds. No wheezing or rales. Abdominal: Palpations: Abdomen is soft. Tenderness: There is no abdominal tenderness. Musculoskeletal: Right lower leg: No edema. Left lower leg: No edema. Lymphadenopathy: Cervical: No cervical adenopathy. Skin: Nails: There is no clubbing. Pulmonary History [facility] 1-2 Alpha-1 Home O2/NIV bipap Smoking History Ex-smoker, quit 2013, 10 pack years. 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 07/17/22 Impression- Clear lungs. CT Chest/PET No recent Echo No recent Labs Abs Eos 12/27/22 - 0.09 K/cmm Hgb 12/27/22 - 13.6 gm/dL HCO2 12/27/22 - 25 mmol/L NTproBNP 06/29/22 - 33 pg/mL Nuclear gastric emptying study - December 2022: IMPRESSION Normal gastric emptying. Latest Reference Range & Units 06/29/22 13:21 IgE <158 IU/mL 255 (H) (H): Data is abnormally high Latest Reference Range & Units 06/29/22 13:21 NT Pro BNP <125 pg/mL 33 Upper Gi endoscopy - 01/04/2023 Endoscopic Diagnosis: Mild erosive esophagitis and non-obstructing Schatzki ring Outpatient Encounter Medications as of 03/05/2023: ??? acetaminophen (TYLENOL) 650 mg CR tablet, 650 mg, oral, Q8H PRN ??? ADVAIR HFA 230-21 mcg/actuation inhaler, 2 Puff, inhalation, BID ??? albuterol (ACCUNEB) 2.5 mg /3 mL (0.083 %) nebulizer solution, 2.5 mg, nebulization, Q4H PRN (Patient not taking: Reported on 03/05/2023) ??? albuterol 90 mcg/actuation inhaler, 2 Puff, inhalation, Q4H PRN ??? amitriptyline (ELAVIL) 10 mg tablet, 10 mg, oral, QHS (Patient not taking: Reported on 03/05/2023) ??? Cholecalciferol, Vitamin D3, 50 mcg capsule, TAKE 2 CAPSULES BY MOUTH ONCE DAILY ??? DM/p-ephed/acetaminoph/doxylam (NYQUIL ORAL), Take by mouth at bedtime as needed. (Patient not taking: Reported on 03/05/2023) ??? DM/pseudoephed/acetaminophen (VICKS DAYQUIL ORAL), Take by mouth as needed. (Patient not taking: Reported on 03/05/2023) ??? famotidine (PEPCID) 40 mg tablet, 40 mg, oral, QHS ??? fexofenadine (PRAVIN) 180 mg tablet, 180 mg, oral, DAILY ??? fluticasone propionate (FLONASE) 50 mcg/actuation nasal spray, 100 mcg, nasal - both, BID ??? glucosamine/chondr anguiano A sod (OSTEO BI-FLEX ORAL), Take by mouth 2 times daily. (Patient not taking: Reported on 03/05/2023) ??? ketotifen (ZADITOR) 0.025 % (0.035 %) ophthalmic solution, 1 Drop, both eyes, BID (Patient not taking: Reported on 03/05/2023) ??? L-Methylfolate 15 mg tablet, daily. ??? Lactobacillus acidophilus (PROBIOTIC) 10 billion cell capsule, Take by mouth daily. (Patient not taking: Reported on 03/05/2023) ??? lactobacillus rhamnosus, GG, (CULTURELLE) 10 billion cell capsule, 1 Capsule, oral, DAILY (Patient not taking: Reported on 03/05/2023) ??? lactose-reduced food (NUTRITIONAL SUPPLEMENT ORAL), Take by mouth. (Patient not taking: Reported on 03/05/2023) ??? lamoTRIgine (LAMICTAL) 200 mg tablet, daily. ??? Lavender Oil oil, by other route. 2 pills at HS ??? Leg Brace (KNEE STABILIZER) misc, by misc (non-drug; combo route) route. Leg brace ??? lisdexamfetamine (VYVANSE) 50 mg capsule, 50 mg, oral, DAILY ??? lisinopriL (PRINIVIL) 40 mg tablet, 40 mg, oral, DAILY ??? LORazepam (ATIVAN) 1 mg tablet, 1 mg, oral, BID (Patient not taking: Reported on 03/05/2023) ??? Magnesium Gluconate 27 mg magnesium (500 mg) tablet, 1,000 mg, oral, BID (Patient not taking: Reported on 03/05/2023) ??? magnesium oxide (MAG-OX) 400 mg (241.3 mg magnesium) tablet, 2,000 mg, oral, BID (Patient not taking: Reported on 03/05/2023) ??? melatonin 5 mg tablet,disintegrating, 2 tabs at hs (Patient not taking: Reported on 03/05/2023) ??? moxifloxacin (VIGAMOX) 0.5 % ophthalmic solution, 1 Drop, left eye, QID (Patient not taking: Reported on 03/05/2023) ??? Multivitamins with Minerals tablet tablet, 3 Tablet, oral, DAILY ??? naproxen (NAPROSYN) 500 mg tablet, 1 tab twice daily ??? omeprazole (PRILOSEC) 20 mg capsule, 40 mg, oral, BID ??? oxygen-air delivery systems (HORIZON NASAL CPAP SYSTEM MISC), by misc (non- drug; combo route) route. ??? [DISCONTINUED] predniSONE (DELTASONE) 10 mg tablet, 4 tablets once a day for 2 days; then 3 tablets once a day for 3 days; then 2 tablets once a day for 3 days; then 1 tablet once a day for 3 days (Patient not taking: Reported on 03/05/2023) ??? [DISCONTINUED] SPIRIVA WITH HANDIHALER 18 mcg inhalation capsule, INHALE THE CONTENTS OF ONE CAPSULE VIA HANDIHALER BY MOUTH EVERY DAY (Patient not taking: Reported on 03/05/2023) ??? traZODone (DESYREL) 100 mg tablet, 100 mg, oral, QHS ??? UNABLE TO FIND, Magnesium ?? 4 tabs daily ??? UNABLE TO FIND, Med Name: THC edibles ??? VITAMINS B COMPLEX tablet, 1 Tablet, oral, BID ??? VYVANSE 30 mg capsule, TAKE 1 CAPSULE BY MOUTH IN THE MORNING ALONG WITH 10MG IN THE AFTERNOON (Patient not taking: Reported on 03/05/2023) I spent a total of 21 minutes on the date of this encounter meeting with the patient and reviewing documentation/coordinating care as described in the above note. No procedures were performed at the time of the visit. . Thank you for the consult J CARLOS Franklin Pulmonary Attending [facility] documented in this encounter Plan of Treatment Not on file documented as of this encounter Visit Diagnoses Diagnosis Asthma in adult, moderate persistent, uncomplicated- Primary documented in this encounter Discontinued Medications Medication Sig Discontinue Reason Start Date End Da te SPIRIVA WITH HANDIHALER 18 mcg inhalation capsuleIndications:Asthm a in adult, moderate persistent, uncomplicated INHALE THE CONTENTS OF ONE CAPSULE VIA HANDIHALER BY MOUTH EVERY DAY Therapy completed 10/16/2022 03/05/2023 predniSONE (DELTASONE) 10 mg tablet 4 tablets once a day for 2 days; then 3 tablets once a day for 3 days; then 2 tablets once a day for 3 days; then 1 tablet once a day for 3 days Therapy completed 07/17/2022 03/05/2023 documented as of this encounter Historical Medications * This list may reflect changes made after this encounter. Medication Sig Dispensed Refills Start Date End Date UNABLE TO FIND Magnesium ?? 4 tabs daily 11/08/2023 added in this encounter Care Teams Book Shelver Relationship Specialty Start Date End Date Trisha Jacobson APRN [address] [place] [phone] PCP - General 08/28/21 11/13/23 Whitley Sage MBBS [address] [place] [address], [address] [place] [phone] Consulting Clinician Pulmonary Disease 05/01/22 documented as of this encounter
--- OUTSIDE RECORDS SUMMARY | 2024-07-15 21:47 | XMS_ITS | Encounter Summary ---
Author Organization [facility] Address [address] [place] [address] Care Team Providers Care Confidential Secretary Name Role Phone Trisha Jacobson Hoa PANDYA Primary Care Provider + Whitley Sage MBBS Unavailable Reason for Visit * Reason Comments Eye Problem Encounter Details Date Type Department Care Team ([facility] st Contact Info) Description 01/09/2023 13:30 EDT Office Visit [facility] Ophthalmology [facility] [address] [place], [place] [address] Sha Andrew MD [address] [place] [phone] Social History Tobacco Use Types Packs/Day Years [...] as of this encounter Progress Notes * Sha Andrew MD - 01/09/2023 1330 EDT Chief Complaint Patient presents with ??? Eye Problem HPI The patient is a 37 y.o. female here for follow up of new floater in the left eye. She has no floaters, but does notice a static in her vision when bothers when driving or when indoors. She has no pain, but feels that the eyes are strained constantly. Right Eye: Glare or Light Sensitivity, Blurred Vision, Tired, Itching Left Eye: Glare or Light Sensitivity, Floaters, Blurred Vision, Tired, Itching Visual Aid: Current Rx Age Location: Both eyes Pain: 5.0 Quality: Aching Severity: Duration: Timing: Lasts: Context: Pt here with new small black floater in the left eye - for about a month. She had seen clear floaters in the past. No flashes in the periphery. She also has tired, achey eyes - worse towardsthe end of the day & sore when going to bed. She is sensitvie to light and when driving sees static lights and has difficulty focusing. (with driving in the day even when cloudy). Modifying factors: Associated Signs & Symptoms: Attestation: ROS Constitutional: ENT/Mouth (chronic ear infection since childhood) Cardiovascular: High Blood Pressure Respiratory: (asthma) Gastrointestinal: (GERD) Genitourinary: NL Musculoskeletal: NL Integumentary: NL Neurologic: NL Psychiatric: Endocrine: NL Hematologic: NL Immunologic: Drug Allergy (seasonal allergies) Computer Information Systems Professor: NL Exposures: Other: Attestation: Base Eye Exam Visual Acuity (Snellen - Linear) Right Left Dist cc 20/25 +1 20/20 Tonometry (Tonopen, 14:07) Right Left Pressure 17 18 Pupils Dark Light APD Right 6 4.5 None Left 6 4.5 None Neuro/Psych Oriented x3: Yes Mood/Affect: Normal Dilation Both eyes: Tropicamide 0.5% @ 14:07 Slit Lamp and Fundus Exam Slit Lamp Exam Right Left Lids/Lashes Normal Normal Conjunctiva/Sclera White and quiet White and quiet Cornea Clear Clear Anterior Chamber Deep and quiet Deep and quiet Iris Round and reactive Round and reactive Lens Clear Clear Fundus Exam Right Left Vitreous Normal Normal Disc Healthy Rim Healthy Rim C/D Ratio 0.5 0.5 Macula Normal small PED inferonasal to fovea Vessels Normal Normal Periphery small CHRPE temporal Normal Refraction Wearing Rx Sphere Cylinder [place] Right -1.00 +0.75 047 Left -1.50 +1.25 138 Type: SVL Manifest Refraction (Auto) Sphere Cylinder [place] Right -0.25 +1.25 017 Left +0.25 +1.00 140 DIAGNOSTIC TESTING/PROCEDURES: OCT, Retina - OU - Both Eyes Indication: PED OCT macula: Right: signal strength: /10, normal foveal contour, no intra/subretinal fluid Left: signal strength: /10, normal foveal contour, small PED inferonasal to fovea, no intra/subretinal fluid IMPRESSION & PLAN: 1. 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 Eye strain, both eyes Likely due to dry eyes Start artificial tears 2-3 times daily I have reviewed the patient's past medical, family, social and surgical history. I have also reviewed the patient's medications, allergies, and problem list. I performed my own HPI and have reviewed the tech's ROS as well. I completed this exam personally. Sha Andrew MD I am scribing for Sha Andrew MD, while he is personally performing the service. STEVE Hadley Patient Education Topic: PED Method: Verbal Taught to: Patient Barriers: None Outcomes: independent Signature: Sha Andrew MD documented in this encounter Plan of Treatment Not on file documented as of this encounter Procedures Procedure Name Priority Date/Time Associated Diagnosis Comments OCT, RETINA - OU - BOTH EYES Routine 01/09/2023 15:27 EDT Retinal pigment epithelial detachment, left documented in this encounter Results * OCT, RETINA - OU - BOTH EYES (01/09/2023 15:27 EDT) Narrative [facility] OPHTHAL[facility] - 01/09/2023 15:27 EDT Indication: PED OCT macula: Right: signal strength: 10/10, normal foveal contour, no intra/subretinal fluid Left: signal strength: 09/10, normal foveal contour, small PED inferonasal to fovea, no intra/subretinal fluid Sha Andrew MD OPHTH TOMOGRAPHY [facility] OPH[facility] documented in this encounter Visit Diagnoses Diagnosis Retinal pigment epithelial detachment, left- Primary Eye strain Visual discomfort documented in this encounter Eye Exam Visual Acuity (Snellen - Linear) Right eye Left eye Dist cc 20/25 +1 20/20 Tonometry (Tonopen, 14:07) Right eye Left eye Pressure 17 18 Pupils Dark Light APD Right eye 6 4.5 None Left eye 6 4.5 None Neuro/Psych Oriented x3: Yes Mood/Affect: Normal Dilation Both eyes: Tropicamide 0.5% @ 14:07 Slit Lamp Exam Right eye Left eye Lids/Lashes Normal Normal Conjunctiva/Sclera White and quiet White and edwardo et Cornea Clear Clear Anterior Chamber Deep and quiet Deep and quiet Iris Round and reactive Round and harjit ctive Lens Clear Clear Fundus Exam Right eye Left eye Posterior Vitreous Normal Normal Disc Healthy Rim Healthy Rim C/D Ratio 0.5 0.5 Macula Normal small PED infero nasal to fovea Vessels Normal Normal Periphery small CHRPE temporal Normal Wearing Rx Sphere Cylinder [place] Right eye -1.00 +0.75 047 Left eye -1.50 +1.25 138 Type: SVL Manifest Refraction (Auto) Sphere Cylinder [place] Right eye -0.25 +1.25 017 Left eye +0.25 +1.00 140 Care Teams Confidential Secretary Relationship Specialty Start Date End Date Trisha Jacobson APRN [address] [place] [phone] PCP - General 08/28/21 11/13/23 Whitley Sage MBBS [address] [place] [address], [address] [place] [phone] Consulting Clinician Pulmonary Disease 05/01/22 documented as of this encounter
--- OUTSIDE RECORDS SUMMARY | 2024-07-15 21:47 | XMS_ITS | Encounter Summary ---
Author Organization [facility] Address [address] [place] [address] Care Team Providers Care Wine Consultant Name Role Phone Trisha Jacobson Hoa PANDYA Primary Care Provider + Whitley Sage MBSUSHIL Unavailable Reason for Visit * Reason Comments Other covid + Encounter Details Date Type Department Care Team ([facility] st Contact Info) Description 07/17/2022 14:00 EDT Office Visit [facility] [address], [place] [id number] Fatmata Jiménez PA-C [address] [facility] [address] [place], [place] [id number] COVID-19 (Primary Dx); Asthma in adult, moderate persistent, uncomplicated; Acute cough Social History Tobacco Use Types Packs/Day Years [...] Sign Reading Time Taken Comments Blood Pressure 152/94 07/17/2022 1505 EDT Pulse 87 07/17/2022 1505 EDT Temperature 36.8 ??C (98.3 ??F) 07/17/2022 1505 EDT Respiratory Rate 20 07/17/2022 1505 EDT Oxygen Saturation 98% 07/17/2022 1505 EDT Inhaled Oxygen Concentration - - Weight - [...] this encounter Patient Instructions * Patient Instructions* Fatmata Jiménez PA-C - 07/17/2022 14:00 EDT Cecilia - You were seen today for continued covid symptoms and with your asthma still flaring - lots of wheezing. Your oxygen is good though and your temp is good. Your chest xray is pending a read, I feel you sound like you might have an early pneumonia and would like to treat this. I am going to have you take a repeat course of prednisone but also an antibiotic. I did draw labs as you are due and your PCP had requested this. Please rest. Try to sleep up right. Use your rescue inhaler every 4 hours please, it probably is helping a little bit. Extra fluids. If any worsening with this plan please be seen in the ER as you may need other testing. documented in this encounter Ordered Prescriptions Prescription Sig Dispensed Refills Start Date End Da te predniSONE (DELTASONE) 10 mg tablet 4 tablets once a day for 2 days; then 3 tablets once a day for 3 days; then 2 tablets once a day for 3 days; then 1 tablet once a day for 3 days 26 Tablet 07/17/2022 03/05/2023 amoxicillin (AMOXIL) 500 mg capsule Take 2 Capsules by mouth 3 times daily for 5 days. 30 capsule 07/17/2022 07/22/2022 documented in this encounter Progress Notes * Olinda Osullivan, IVAN - 07/17/2022 1400 EDT CC/HPI: Onset of symptoms 06/29/22, tested + for covid with home rapid test on 07/02. Tested negative 07/09. Symptoms are sinus congestion, body aches, ear pain, cough nasal congestion. Took course of Paxlovid starting 07/02 & symptoms improved, then resumed fter finished. Covid Screening: In the last 72 hours, has the patient had: New or unusual cough, shortness of breath, new nasal congestion, sore throat, fever, chills, body aches, or new loss of taste or smell without a reasonable alternative diagnosis*? (If yes, assign to ARC)- see above In the past 10 days, has the patient had a positive Covid test OR a confirmed close Covid exposure (<6ft for > 15mins in 24hr period)? (if yes, assign to ARC, regardless of vaccination status)-no *may be determined by RN or in discussion with available provider (SALES PRODUCER's and CCA's can defer to Charge Nurse to complete triage when appropriate) PCP: Trisha Jacobson * Fatmata Jiménez PA-C - 07/17/2022 1400 EDT [facility] Express [facility] Chief Complaint(s): Chief Complaint Patient presents with ??? Other covid + Assessment & Plan: Pleasant 37 yr female seen for continued covid symptoms; post use of paxlovid for underlying hx of asthma. Vitals reassuring, xr neg for pneumonia. Suspect this is a rebound of URI/covid as well as underlying asthma exacerbation. Will repeat longer course oral prednisone. Monitor closely for fevers, worse breathing. At this time no indication for antibiotics but recheckadvised if any worsening despite this plan of care. 1. COVID-19 XR CHEST 2 VIEWS COMPLETE BLOOD COUNT AND DIFFERENTIAL COMPREHENSIVE METABOLIC PANEL (CMP) 2. Asthma in adult, moderate persistent, uncomplicated 3. Acute cough XR CHEST 2 VIEWS New Prescriptions PREDNISONE (DELTASONE) 10 MG TABLET 4 tablets once a day for 2 days; then 3 tablets once a day for 3 days; then 2 tablets once a day for 3 days; then 1 tablet once a day for 3 days HPI: 07/02/17 pos covid test. Started on paxlovid. Due to asthma, also given prednisone 07/04 taper due to wheeze/sob. [place] some better by 07/06/21. Then symptoms all returned, worsening since. Back to work 07/10/25 - no longer able to work due to symptoms. Everything aches, cough, sob with exertion, inhalers not helping. No known fevers but feels warms, chills. Head extremely congested. ROS: ROS See hpi/neg GI s/s Objective: Vitals and nursing notes reviewed Examination: BP (!) 152/94 Pulse 87 Temp 36.8 ??C (98.3 ??F) Resp 20 SpO2 98% Physical Exam Constitutional: Comments: Obese female in no acute distress but appears mildly uncomfortable HENT: Right Ear: Tympanic membrane normal. Left Ear: Tympanic membrane normal. Nose: Congestion present. Mouth/Throat: Mouth: Mucous membranes are moist. Pharynx: Oropharynx is clear. No posterior oropharyngeal erythema. Eyes: Conjunctiva/sclera: Conjunctivae normal. Cardiovascular: Rate and Rhythm: Normal rate and regular rhythm. Heart sounds: No murmur heard. Pulmonary: Comments: Speaking comfortably, occasional cough only with exam/auscultation; diffuse wheeze and rhonchi throughout, questionable crackles right lower lobe Musculoskeletal: Cervical back: Neck supple. Lymphadenopathy: Cervical: Cervical adenopathy present. Skin: General: Skin is warm and dry. Findings: No rash. Neurological: Mental Status: She is oriented to person, place, and time. No results found for: HGBA1C Data reviewed with patient (current and past results): pmhx/meds This note may be in part documented using voice dictation software. Please forgive any errors or omissions that may result from use of dictation. * [place] Tolentino RN - 07/17/2022 1400 EDT Venipuncture complete, R hand, patient tolerated well. documented in this encounter Plan of Treatment Not on file documented as of this encounter Procedures Procedure Name Priority Date/Time Associated Diagnosis Comments COMPLETE BLOOD COUNT AND DIFFERENTIAL Routine 07/17/2022 16:40 EDT COVID-19 COMPREHENSIVE METABOLIC PANEL (CMP) Routine 07/17/2022 16:40 EDT COVID-19 XR CHEST 2 VIEWS STAT 07/17/2022 16:2 9 EDT COVID-19 Acute cough documented in this encounter Results * COMPREHENSIVE METABOLIC PANEL (CMP) (07/17/2022 16:40 EDT) Sodium 141 136 - 145 mmol/L 07/18/2022 11:54 [facility] Potassium 4.8 3.5 - 5.0 mmol/L 07/18/2022 11:54 [facility] Chloride 106 96 - 110 mmol/L 07/18/2022 11:54 [facility] CO2 Total 22 22 - 32 mmol/L 07/18/2022 11:54 [facility] Glucose 90 70 - 100 mg/dL 07/18/2022 11:54 [facility] BUN 12 10 - 26 mg/dL 07/18/2022 11:54 [facility] Creatinine 0.68 0.52 - 1.04 mg/dL 07/18/2022 11:54 [facility] eGFR 115 >60 mL/min/1.7 3m2 07/18/2022 11:54 [facility] Total Protein 7.4 6.3 - 8.2 g/dL 07/18/2022 11:54 [facility] Albumin 4.3 3.4 - 4.9 g/dL 07/18/2022 11:54 [facility] Alkaline Phosphatase 77 38 - 126 U/L 07/18/2022 11:54 [facility] AST 33 15 - 46 U/L 07/18/2022 11:54 [facility] ALT 32 <35 U/L 07/18/2022 11:54 [facility] Bilirubin, Total 0.3 <1.4 mg/dL 07/18/20 11:54 [facility] Calcium 9.3 8.5 - 10.5 mg/dL 07/18/2022 11:54 [facility] Albumin/Globulin Ratio 1.4 1.0 - 2.5 07/18/2022 11:54 [facility] Anion Gap 13 5 - 14 07/18/2022 11:54 [facility] Blood VENOUS BLOOD / Unknown Venipuncture / Unknown 07/17/2022 16:40 EDT 07/17/2022 16:40 EDT Fatmata Jiménez PA-C CHEMISTRY & BLOO D GAS ORDERABLES Performing Organization Address City/State/[facility] Co de Phone Number [facility] [address] [place] [address] * (ABNORMAL) COMPLETE BLOOD COUNT AND DIFFERENTIAL (07/17/2022 16:40 EDT) WBC 8.97 4.00 - 12.40 K/cmm 07/18/2022 11:29 [facility] RBC 4.48 3.86 - 5.04 M/cmm 07/18/2022 11:29 [facility] Hemoglobin 12.5 11.6 - 15.2 gm/dL 07/18/2022 11:29 [facility] HCT 40.2 34.9 - 44.4 % 07/18/2022 11:29 [facility] MCV 90 81 - 98 fl 07/18/2022 11:29 [facility] MCH 27.9 26.7 - 33.3 pg 07/18/2022 11:29 [facility] MCHC 31.1(L) 32.1 - 35.9 gm/dL 07/18/2022 11:29 [facility] RDW-CV 12.8 <14.7 % 07/18/2022 11:29 [facility] RDW-SD 41.9 <50.4 fl 07/18/2022 11:29 [facility] PLT 300 141 - 377 K/cmm 07/18/2022 11:29 [facility] MPV 10.6 9.5 - 12.7 fl 07/18/2022 11:29 [facility] % Neutrophils 50.2 % 07/18/2022 11:29 [facility] % Lymphocytes 42.8 % 07/18/2022 11:29 [facility] % Monocytes 5.2 % 07/18/2022 11:29 [facility] % Eosinophils 1.3 % 07/18/2022 11:29 [facility] % Basophils 0.2 % 07/18/2022 11:29 [facility] % Immature Grans 0.3 % 07/18/20 11:29 [facility] Absolute Neutrophils 4.49 2.20 - 8.85 K/cmm 07/18/2022 11:29 [facility] Absolute Lymphocytes 3.84(H) 1.09 - 3.30 K/cmm 07/18/2022 11:29 [facility] Absolute Monocytes 0.47 0.10 - 0.80 K/cmm 07/18/2022 11:29 [facility] Absolute Eosinophils 0.12 0.03 - 0.61 K/cmm 07/18/2022 11:29 [facility] ABS Basophils 0.02 0.01 - 0.11 K/cmm 07/18/2022 11:29 [facility] Absolute Immature Grans 0.03 0.00 - 0.06 K/cmm 07/18/2022 11:29 [facility] Type of Differential: Auto 07/18/2022 11:29 [facility] Blood VENOUS BLOOD / Unknown Venipuncture / Unknown 07/17/2022 16:40 EDT 07/17/2022 16:40 EDT Fatmata Jiménez PA-C PACKAGES & DNA P ROBE ORDERABLES [facility] [address] [place] [address] * XR CHEST 2 VIEWS (07/17/2022 16:29 EDT) Anatomical Region Laterality Modality Computed Radiogr aphy 07/17/2022 16:2 3 EDT Impressions 07/17/2022 16:49 EDT Clear lungs. THIS DOCUMENT HAS BEEN ELECTRONICALLY SIGNED BY HERBERT SNYDER MD FOR ANY QUESTIONS OR CONCERNS REGARDING THIS REPORT PLEASE CALL [facility] AT [phone] Narrative 07/17/2022 16:49 EDT PROCEDURE INFORMATION: Exam: XR Chest Exam date and time: 07/17/2022 4:23 PM Age: 37 years old Clinical indication: Covid-19; Acute cough; Additional info: Worsening cough SOB; Covid pos and moderate asthma TECHNIQUE: Imaging protocol: Radiologic exam of the chest. Views: 2 views. COMPARISON: No relevant prior studies available. FINDINGS: Lungs: Clear lungs. Pleural spaces: No pneumothorax. No sizable pleural effusion. Heart/Mediastinum: Borderline cardiomegaly. Bones/joints: Unremarkable. Procedure Note Herbert Snyder MD - 07/17/2022 PROCEDURE INFORMATION: Exam: XR Chest Exam date and time: 07/17/2022 4:23 PM Age: 37 years old Clinical indication: Covid-19; Acute cough; Additional info: Worsening cough SOB; Covid pos and moderate asthma TECHNIQUE: Imaging protocol: Radiologic exam of the chest. Views: 2 views. COMPARISON: No relevant prior studies available. FINDINGS: Lungs: Clear lungs. Pleural spaces: No pneumothorax. No sizable pleural effusion. Heart/Mediastinum: Borderline cardiomegaly. Bones/joints: Unremarkable. IMPRESSION Clear lungs. THIS DOCUMENT HAS BEEN ELECTRONICALLY SIGNED BY HERBERT SNYDER MD FOR ANY QUESTIONS OR CONCERNS REGARDING THIS REPORT PLEASE CALL [facility] [phone] Fatmata Jiménez PA-C IMG DIAGNOSTIC I MAGING ORDERABLES documented in this encounter Visit Diagnoses Diagnosis COVID-19- Primary Asthma in adult, moderate persistent, uncomplicated Acute cough documented in this encounter Discontinued Medications Medication Sig Discontinue Reason Start Date End Da te predniSONE (DELTASONE) 20 mg tabletIndications:Asthma in adult, moderate persistent, uncomplicated Take 2 Tablets by mouth daily. 07/04/2022 07/17/2022 documented as of this encounter Historical Medications * This list may reflect changes made after this encounter. Medication Sig Dispensed Refills Start Date End Date DM/p-ephed/acetaminoph/d oxylam (NYQUIL ORAL) Take by mouth at bedtime as needed. 11/08/2023 DM/pseudoephed/acetamino phen (VICKS DAYQUIL ORAL) Take by mouth as needed. 11/08/2023 added in this encounter Care Teams Wine Consultant Relationship Specialty Start Date End Date Trisha Jacobson APRN [address] [place] [phone] PCP - General 08/28/21 11/13/23 Whitley Sage MBBS [address] [place] [address], [address] [place] [address] Consulting Clinician Pulmonary Disease 05/01/22 documented as of this encounter
--- OUTSIDE RECORDS SUMMARY | 2024-07-15 21:47 | XMS_ITS | Encounter Summary ---
Author Organization [facility] Address [address] [place] [address] Care Team Providers Care Sales Coordinator Name Role Phone Trisha Jacobson Hoa PANDYA Primary Care Provider + Whitley Sage MBSUSHIL Unavailable Reason for Visit * Reason Comments Cerumen Impaction Ear cleaning Encounter Details Date Type Department Care Team (Late st Contact Info) Description 11/30/2022 10:[address] [facility] [place] [facility] [address] [place] [address] Abiel Hidalgo MD [address] [place] [address] [address] [place] [address] Non-recurrent acute suppurative otitis media of right ear with spontaneous rupture of tympanic membrane (Primary Dx) Social History Tobacco Use Types [...] 10:07 EDT documented as of this encounter Last Filed Vital Signs Vital Sign Reading Time Taken Comments Blood Pressure - - Pulse - - Temperature 35.8 ??C (96.5 ??F) 11/30/2022 1019 EDT Respiratory Rate - - Oxygen Saturation - [...] as of this encounter Progress Notes * Abiel Hidalgo MD - 11/30/2022 1010 EDT REASON FOR VISIT: Follow-up right eardrum perforation and myringitis SUBJECTIVE: Patient is doing well no pain OBJECTIVE: Binocular otomicroscopy was performed this reveals a clean right tympanic membrane perforation without myringitis or inflammation. Left canal is clear and the tympanic membrane is normal. ASSESSMENT: Right tympanic membrane perforation. Resolved myringitis. PLAN: We will schedule audiogram with follow-up. documented in this encounter Plan of Treatment Not on file documented as of this encounter Visit Diagnoses Diagnosis Non-recurrent acute suppurative otitis media of right ear with spontaneous rupture of tympanic membrane- Primary documented in this encounter Discontinued Medications Medication Sig Discontinue Reason Start Date End Da te buPROPion (WELLBUTRIN XL) 150 mg XL tablet Take 150 mg by mouth daily. Therapy completed 11/30/2022 blue-green algae (SPIRULINA MISC) 500 mg by misc (non-drug; combo route) route daily. 6 tablets every AM Therapy completed 11/30/2022 ascorbic acid, vitamin C, (VITAMIN C) 500 mg tablet Take 500 mg by mouth daily. Therapy completed 11/30/2022 aminocaproic acid (AMICAR) 500 mg tablet Take 1,000 mg by mouth. BID Therapy completed 11/30/2022 acetylcysteine (NAC) 600 mg capsule Take 600 mg by mouth daily. Therapy completed 11/30/2022 glucosam/artur-msm1/C/man g/bosw (OSTEO BI-FLEX TRIPLE STRENGTH ORAL) Take 2 Tablets by mouth daily. Therapy completed 11/30/2022 documented as of this encounter Care Teams Sales Coordinator Relationship Specialty Start Date End Date Trisha Jacobson APRN [address] [place] [phone] PCP - General 08/28/21 11/13/23 hWitley Sage MBBS [address] [place] [address], [address] [place] [phone] Consulting Clinician Pulmonary Disease 05/01/22 documented as of this encounter
--- OUTSIDE RECORDS SUMMARY | 2024-07-15 21:47 | XMS_ITS | Encounter Summary ---
Author Organization [facility] Address [address] [place] [address] Care Team Providers Care Mechanical Test Technician Name Role Phone JacobsonDanyel banerjeebraden Camara APRN Primary Care Provider + Whitley Sage MBSUSHIL Unavailable Encounter Details Date Type Department Care Team ([facility] Contact Info) Description 12/27/2022 15:45 EDT Phlebotomy Only [facility] - Outpatient Phlebotomy Drawing [address] [place] [address] [place], [facility] [place] [facility] [place] Palpitations; Cough, unspecified type; Chest pressure Social History Tobacco Use Types Packs/Day Years [...] Procedure Name Priority Date/Time Associated Diagnosis Comments THYROID CASCADE Routine 12/27/2022 15:35 EDT Palpitations COMPLETE BLOOD COUNT AND DIFFERENTIAL Routine 12/27/2022 15:35 EDT Cough, unspecified type COMPREHENSIVE METABOLIC PANEL (CMP) Routine 12/27/2022 15:35 EDT Chest pressure documented in this encounter Results * (ABNORMAL) COMPREHENSIVE METABOLIC PANEL (CMP) (12/27/2022 15:35 EDT) Sodium 139 136 - 145 mmol/L 12/27/2022 16:01 [facility] Potassium 4.0 3.5 - 5.0 mmol/L 12/27/2022 16:01 [facility] Chloride 104 96 - 110 mmol/L 12/27/2022 16:01 [facility] CO2 Total 25 22 - 32 mmol/L 12/27/2022 16:01 [facility] Glucose 96 70 - 100 mg/dL 12/27/2022 16:01 [facility] BUN 14 10 - 26 mg/dL 12/27/2022 16:01 [facility] Creatinine 0.80 0.52 - 1.04 mg/dL 12/27/2022 16:01 [facility] eGFR 97 >60 mL/min/1.7 3m2 12/27/2022 16:01 [facility] Total Protein 7.4 6.3 - 8.2 g/dL 12/27/2022 16:01 [facility] Albumin 4.3 3.4 - 4.9 g/dL 12/27/2022 16:01 [facility] Alkaline Phosphatase 81 38 - 126 U/L 12/27/2022 16:01 [facility] AST 31 15 - 46 U/L 12/27/2022 16:01 [facility] ALT 40(H) <35 U/L 12/27/2022 16:01 [facility] Bilirubin, Total 0.5 <1.4 mg/dL 12/28/19 16:01 [facility] Calcium 9.6 8.5 - 10.5 mg/dL 12/27/2022 16:01 [facility] Albumin/Globulin Ratio 1.4 1.0 - 2.5 12/27/2022 16:01 [facility] Anion Gap 10 5 - 14 12/27/2022 16:01 [facility] Blood VENOUS BLOOD / Unknown Venipuncture / Unknown 12/27/2022 15:35 EDT 12/27/2022 15:38 EDT Trisha Jacobson TACTICAL DECEPTION PLANS OFFICER CHEMISTRY & BLOO D GAS ORDERABLES Performing Organization Address City/State/[facility] Co de Phone Number [facility] [address] [place] [address] * (ABNORMAL) COMPLETE BLOOD COUNT AND DIFFERENTIAL (12/27/2022 15:35 EDT) WBC 9.40 4.00 - 12.40 K/cmm 12/27/2022 15:41 [facility] RBC 4.70 3.86 - 5.04 M/cmm 12/27/2022 15:41 [facility] Hemoglobin 13.6 11.6 - 15.2 gm/dL 12/27/2022 15:41 [facility] HCT 41.1 34.9 - 44.4 % 12/27/2022 15:41 [facility] MCV 87 81 - 98 fl 12/27/2022 15:41 [facility] MCH 28.9 26.7 - 33.3 pg 12/27/2022 15:41 [facility] MCHC 33.1 32.1 - 35.9 gm/dL 12/27/2022 15:41 [facility] RDW-CV 12.6 <14.7 % 12/27/2022 15:41 [facility] RDW-SD 40.3 <50.4 fl 12/27/2022 15:41 [facility] PLT 268 141 - 377 K/cmm 12/27/2022 15:41 [facility] MPV 9.4(L) 9.5 - 12.7 fl 12/27/2022 15:41 [facility] % Neutrophils 50.8 % 12/27/2022 15:41 [facility] % Lymphocytes 42.9 % 12/27/2022 15:41 [facility] % Monocytes 4.6 % 12/27/2022 15:41 [facility] % Eosinophils 1.0 % 12/27/2022 15:41 [facility] % Basophils 0.4 % 12/27/2022 15:41 [facility] % Immature Grans 0.3 % 12/28/19 15:41 [facility] Absolute Neutrophils 4.78 2.20 - 8.85 K/cmm 12/27/2022 15:41 [facility] Absolute Lymphocytes 4.03(H) 1.09 - 3.30 K/cmm 12/27/2022 15:41 [facility] Absolute Monocytes 0.43 0.10 - 0.80 K/cmm 12/27/2022 15:41 [facility] Absolute Eosinophils 0.09 0.03 - 0.61 K/cmm 12/27/2022 15:41 [facility] ABS Basophils 0.04 0.01 - 0.11 K/cmm 12/27/2022 15:41 [facility] Absolute Immature Grans 0.03 0.00 - 0.06 K/cmm 12/27/2022 15:41 [facility] Type of Differential: Auto 12/27/2022 15:[address] [facility] Blood VENOUS BLOOD / Unknown Venipuncture / Unknown 12/27/2022 15:35 EDT 12/27/2022 15:38 EDT Trisha Jacobson TACTICAL DECEPTION PLANS OFFICER PACKAGES & DNA P ROBE ORDERABLES Performing Organization Address City/[facility]/ZIP Co de Phone Number [address] [address] * THYROID CASCADE (12/27/2022 15:35 EDT) TSH 2.67 0.47 - 4.68 mIU/L 12/27/2022 16:[address] [facility] Blood VENOUS BLOOD / Unknown Venipuncture / Unknown 12/27/2022 15:35 EDT 12/27/2022 15:[address] [facility] - 12/27/2022 16:36 EDT NOTE: The results of this assay can be falsely lowered due to the consumption of Biotin. Trisha Jacobson TACTICAL DECEPTION PLANS OFFICER CHEMISTRY & BLOO D GAS ORDERABLES Performing Organization Address City/[facility] Co de Phone Number [address] [phone] documented in this encounter Visit Diagnoses Diagnosis Palpitations Cough, unspecified type Chest pressure Other chest pain documented in this encounter Care Teams Mechanical Test Technician Relationship Specialty Start Date End Date Trisha Jacobson APRN [address] [place] [phone] PCP - General 08/28/21 11/13/23 Whitley Sage MBBS [address] [place] [address], [address] [place] [phone] Consulting Clinician Pulmonary Disease 05/01/22 documented as of this encounter
--- OUTSIDE RECORDS SUMMARY | 2024-07-15 21:47 | XMS_ITS | Encounter Summary ---
Author Organization [facility] Address [address] [place] [address] Care Team Providers Care Pneumatic Systems Operator Name Role Phone Trisha Jacobosn Hoa PANDYA Primary Care Provider + Whitley Sage MBBS Unavailable Reason for Visit * Auth/Cert (Routine) Specialty Diagnoses / Procedures Referred By Nakia anderson Referred To Contact Referral ID Status Reason Start Date Expiration Date Visits Re quested Visits Authorized [id number] 1 1 Encounter Details Date Type Department Care Team (Late st Contact Info) Description 01/04/2023 9:[address] [facility] [address] [place], [place] [id number] Dg Byrd MD [address] [place] [id number] Anesthesia Record Procedure Summary Procedure Name Responsible Anesthesiologist Anesthesia Start Time Anesthesia Stop Time COLONOSCOPY Dg Byrd MD 01/04/23 092 5 01/04/23 1031 Events Date Time Event Comment 01/04/2023 0925 An Start The patient was re-evaluated immediately before moderate or deep sedation use, before anesthesia induction, or before the anesthesia procedure. 0925 An Start Data 0928 Anesthesia Ready 1009 Sixto NIBP cuff inter mittently not providing readings likely due to large body habitus causing poor fit on limbs 1017 an stop data 1030 Handoff to RN I completed my handoff to the receiving nurse during which we: 1. Identified the patient 2. Identified the responsible provider 3. Reviewed the pertinent medical history 4. Discussed the surgical course 5. Reviewed intra-op anesthesia management and issues during anesthesia 6. Set expectations for post-procedure period 7. Allowed opportunity for questions and acknowledgement of understanding. 1031 An Stop Meds Name Total glycopyrrolate injection 0.2 mg ketAMINE 10 mg/mL vial 20 mg midazolam 1 mg/mL 2 mL vial 2 mg propOFol (DIPRIVAN) injection 310 mg propofol (DIPRIVAN) 500 mg in 50 mL infu annette 582,288 mcg lactated ringers (LR) infusion 0 mL * Agents Name Aux O2 flow * Blood No blood administrations on file. Lines, Drains, and Airways Type Details Placement Removal Peripheral IV 01/04/23; 0918; 22; Posterior, Right; Hand; Inserted by RN, Documenting on behalf of someone else (enter name) (Francesco, RN); 1; None; Chlorhexidine; 01/04/23; 1112; Discharged; No complications, Catheter intact, Dressing applied 01/04/23 0918 by Carey Lebron RN 01/04/23 1112 by Tiffani Mckeon RN documented in this encounter Social History Tobacco [...] Yes 05/05/2022 documented as of this encounter OR Notes * Anesthesia Postprocedure Evaluation - Dg Byrd MD - 01/04/2023 1031 EDT Patient: Cecilia Connelly Vital signs were reviewed with the recovery nurse. [facility] Vitals Value Taken Time BP 153/84 01/04/23 1026 Temp 36.6 ??C (97.8 ??F) 01/04/23 1030 Resp 17 01/04/23 1030 Pulse From Oximetry 104 BPM 01/04/23 1030 SpO2 100 % 01/04/23 1030 Heart Rate 104 BPM 01/04/23 1030 Vitals shown include unvalidated device data. Last Pain Score - Numeric Pain Level (Scale 1-10): 0 Type of Anesthesia - MAC Anesthesia Post Evaluation Post-procedure vitals reviewed and are stable. Level of consciousness: awake Temperature status: normothermia Respiratory status: airway patent and nasal cannula Cardiovascular status: acceptable Hydration status: adequate Nausea/Vomiting: none Pain management: adequate Post-Op Assessment: patient tolerated procedure well with no complications Patient participation: able to participate Disposition: outpatient/home Anesthesia Complications: No apparent anesthesia complications * Anesthesia Preprocedure Evaluation - Dg Byrd MD - 01/04/2023 0750 EDT Anesthesia Preprocedure Evaluation 37 y.o.female with a history of obesity, HTN, asthma, long QT, MEY, PTSD and GERD who presents for EGD and colonoscopy. Patient Medical History, including Anesthesia History reviewed. Chart and Nursing Notes reviewed, including NPO status and Medication History. Additional ROS/History Findings: Allergies Allergen Reactions ??? Azithromycin Patient states that this is not an allergy anymore and needs to be removed Review of Systems Constitutional: Negative for fever. Respiratory: Positive for shortness of breath. Negative for cough. Cardiovascular: Negative for chest pain. Gastrointestinal: Positive for heartburn. Past Medical History: Diagnosis Date ??? Asthma ??? Hypertension Relevant Problems Anesthesia (+) Severe obstructive sleep apnea PULMONARY (+) Asthma in adult, moderate persistent, uncomplicated (+) Severe obstructive sleep apnea Neuro/Psych (+) Generalized headaches CARDIOVASCULAR (+) Hemorrhoids, external (+) Hypertension (+) Long Q-T syndrome GASTROINTESTINAL (+) GERD (gastroesophageal reflux disease) Physical Exam Airway Mallampati: III TM distance: <3 FB Neck ROM: limited Cardiovascular Rhythm: regular Rate: abnormal Dental - normal exam Pulmonary (+) decreased breath sounds Abdominal (+) obese Anesthesia Plan ASA 3 Anesthesia Type - MAC Anesthesia plan and risks discussed. Informed consent obtained from patient. Specific risks discussed were vomiting and nausea. PAT Note Notes from 12/05/22 through 01/04/23 No notes of this type exist for this encounter. documented in this encounter Plan of Treatment Not on file documented as of this encounter Visit Diagnoses Not on filedocumented in this encounter Administered Medications Inactive Administered Medications - up to 3 most recent administrations Medication Order MAR Action Action Date Dose Rate Site glycopyrrolate (ROBINUL) injection intravenous, PRN, Starting on Ro 01/04/23 at 0933, Until Ro 01/04/23 at 1031, Routine, Anesthesia Intraprocedure Given 01/04/2023 9:33 EDT 0.2 mg ketAMINE (KETALAR) IV injection vial intravenous, PRN, Starting on Ro 01/04/23 at 0933, Until Ro 01/04/23 at 1031, Routine, Anesthesia Intraprocedure Given 01/04/2023 9:33 EDT 20 mg lactated ringers (LR) infusion 30 mL/hr, intravenous, PRN, Starting on Ro 01/04/23 at 0834, Until 01/06/23 at 0202, Routine, Preprocedure Continued by Anesthesia 01/04/2023 9:25 EDT 30 mL/hr New Bag 01/04/2023 9:23 EDT 30 mL/hr 30 mL/hr midazolam (PF) (VERSED) injection intravenous, PRN, Starting on Ro 01/04/23 at 0933, Until Ro 01/04/23 at 1031, Routine, Anesthesia Intraprocedure Given 01/04/2023 9:33 EDT 2 mg propOFol (DIPRIVAN) 500 mg in 50 mL infusion intravenous, FA IP EQF CONTINUOUS PRN FOR ONE STEP MEDS, Starting on Ro 01/04/23 at 0933, Until Ro 01/04/23 at 1031, Routine, Anesthesia Intraprocedure New Bag 01/04/2023 9:33 EDT 80 mcg/kg/min 83.184 mL/hr propOFol (DIPRIVAN) injection intravenous, PRN, Starting on Ro 01/04/23 at 0933, Until Ro 01/04/23 at 1031, Routine, Anesthesia Intraprocedure Given 01/04/2023 10:08 EDT 50 mg Given 01/04/2023 10:05 EDT 50 mg Given 01/04/2023 9:59 EDT 50 mg documented in this encounter Care Teams Pneumatic Systems Operator Relationship Specialty Start Date End Date Trisha Jacobson APRN [address] [place] [id number] PCP - General 08/28/21 11/13/23 Whitley Sage MBBS [address] [place] [address], [address] [place] [phone] Consulting Clinician Pulmonary Disease 05/01/22 documented as of this encounter
--- OUTSIDE RECORDS SUMMARY | 2024-07-15 21:47 | XMS_ITS | Encounter Summary ---
Author Organization [facility] Address [address] [place] [address] Care Team Providers Care Machine Rebuilder Name Role Phone JacobsonDanyel banerjeebraden Camara APRN Primary Care Provider + Whitley Sage MBSUSHIL Unavailable Reason for Referral * Referral (Routine/Next Available) - Receiving Office to Obtain Authorization Specialty Diagnoses / Procedures Referred By Nakia anderson Referred To Contact Diagnoses Dysphagia, unspecified type Gastroesophageal reflux disease, unspecified whether esophagitis present Encounter for swallowing study Procedures ESOPHAGEAL PH PROBE Kevin Cleveland MD [address] [place] [phone] Referral ID Status Reason Start Date Expiration Date Visits Requested Visits Authorized [id number] Receiving Office to Obtain Authorization 2 1 1 * Referral (Routine/Next Available) - Receiving Office to Obtain Authorization Specialty Diagnoses / Procedures Referred By Nakia anderson Referred To Contact Diagnoses Dysphasia Gastroesophageal reflux disease, unspecified whether esophagitis present Encounter for screening for upper gastrointestinal disorder Procedures UPPER ENDOSCOPY (EGD) Kevin Cleveland MD [address] [place] [address] [address] [place] [phone] Referral ID Status Reason Start Date Expiration Date Visits Requested Visits Authorized [id number] Receiving Office to Obtain Authorization 2 1 1 * Referral (Routine/Next Available) - Receiving Office to Obtain Authorization Specialty Diagnoses / Procedures Referred By Nakia anderson Referred To Contact Diagnoses Special screening for malignant neoplasms, colon Blood in stool Diarrhea, unspecified type Procedures COLONOSCOPY Kevin Cleveland MD [address] [place] [address] [place] [phone] Referral ID Status Reason Start Date Expiration Date Visits Requested Visits Authorized [id number] Receiving Office to Obtain Authorization 2 1 1 Reason for Visit * Auth/Cert (Routine) Specialty Diagnoses / Procedures Referred By Nakia anderson Referred To Contact Referral ID Status Reason Start Date Expiration Date Visits Re quested Visits Authorized [id number] 1 1 Encounter Details Date Type Department Care Team (Late st Contact Info) Description 01/04/2023 8:19 EDT - 01/04/2023 23:59 EDT Hospital Encounter [facility] Endoscopy [address] [place] [address] Kevin Cleveland MD [address] [place] [phone] Dg Byrd MD [address] [place] [phone] Special screening for malignant neoplasms, colon; Blood in stool; Diarrhea, unspecified type; Dysphasia; Gastroesophageal reflux disease, unspecified whether esophagitis present; Encounter for screening for upper gastrointestinal disorder; Dysphagia, unspecified type; Encounter for swallowing study Discharge Disposition: Home or Self Care Social History Tobacco Use Types Packs/Day Years Used Date Smoking Tobacco: Former Cigarettes 2013 Smokeless Tobacco: Never Tobacco Cessation:Counseling Given: [...] Sign Reading Time Taken Comments Blood Pressure 158/78 01/04/2023 1056 EDT Pulse - - Temperature 36.6 ??C (97.8 ??F) 01/04/2023 1030 EDT Respiratory Rate 15 01/04/2023 1056 EDT Oxygen Saturation 99% 01/04/2023 1056 EDT Inhaled Oxygen Concentration - - Weight 173.3 kg (382 lb) 01/04/2023 0843 EDT Height 162.6 cm (5' 4) 01/04/2023 0843 EDT Body Mass Index 65.57 01/04/2023 0843 EDT documented in this encounter [...] Yes 05/05/2022 documented as of this encounter Medications at Time of Discharge Medication Sig Dispensed Refills Start Date End Date acetaminophen (TYLENOL) 650 mg CR tablet Take 1 Tablet by mouth every 8 hours as needed. ADVAIR HFA 230-21 mcg/actuation inhaler Inhale 2 Puffs as directed 2 times daily. 01/23/2022 albuterol (ACCUNEB) 2.5 mg /3 mL (0.083 %) nebulizer solutionIndications:As thma in adult, moderate persistent, uncomplicated Take 3 mL by nebulization every 4 hours as needed for Wheezing. 1 Each 02/23/2022 albuterol 90 mcg/actuation inhaler Inhale 2 Puffs as directed every 4 hours as needed. Cholecalciferol, Vitamin D3, 50 mcg capsule TAKE 2 CAPSULES BY MOUTH ONCE DAILY 01/10/2022 fexofenadine (PRAVIN) 180 mg tablet Take 1 Tablet by mouth daily. fluticasone propionate (FLONASE) 50 mcg/actuation nasal spray Instill 2 Sprays into both nostrils 2 times daily. ketotifen (ZADITOR) 0.025 % (0.035 %) ophthalmic solution Place 1 Drop into both eyes 2 times daily. L-Methylfolate 15 mg tablet daily. 01/23/2022 lamoTRIgine (LAMICTAL) 200 mg tablet daily. 01/13/2022 Lavender Oil oil by other route. 2 pills at HS Leg Brace (KNEE STABILIZER) misc by misc (non-drug; combo route) route. Leg brace lisdexamfetamine (VYVANSE) 50 mg capsule Take 1 Capsule by mouth daily. lisinopriL (PRINIVIL) 40 mg tablet Take 1 Tablet by mouth daily. LORazepam (ATIVAN) 1 mg tablet Take 1 mg by mouth 2 times daily. BID PRN Magnesium Gluconate 27 mg magnesium (500 mg) tablet Take 1,000 mg by mouth 2 times daily. moxifloxacin (VIGAMOX) 0.5 % ophthalmic solution Place 1 Drop into the left eye 4 times daily. 1 mL 08/28/2021 Multivitamins with Minerals tablet tablet Take 3 Tablets by mouth daily. naproxen (NAPROSYN) 500 mg tablet 1 tab twice daily 01/23/2022 omeprazole (PRILOSEC) 20 mg capsuleIndications:gas troesophageal reflux disease Take 2 Capsules by mouth 2 times daily. oxygen-air delivery systems (HORIZON NASAL CPAP SYSTEM [facility]) by misc (non-drug; combo route) route. traZODone (DESYREL) 100 mg tabletIndications:inso mnia associated with depression Take 1 Tablet by mouth at bedtime. UNABLE TO FIND Med Name: THC edibles VITAMINS B COMPLEX tablet Take 1 Tablet by mouth 2 times daily. 11/15/2021 VYVANSE 30 mg capsule TAKE 1 CAPSULE BY MOUTH IN THE MORNING ALONG WITH 10MG IN THE AFTERNOON 02/03/2022 ALLERGARD GLOVES MISC by misc (non-drug; combo route) route. 2023 DM/p-ephed/acetaminoph /doxylam (NYQUIL ORAL) Take by mouth at bedtime as needed. 11/08/2023 DM/pseudoephed/acetami nophen (VICKS DAYQUIL ORAL) Take by mouth as needed. 11/08/2023 ferrous sulfate 325 mg (65 mg iron) tablet Take 1 Tablet by mouth. 07/24/2022 04/28/2024 glucosamine/chondr anguiano A sod (OSTEO BI-FLEX ORAL) Take by mouth 2 times daily. 11/08/2023 Lactobacillus acidophilus (PROBIOTIC) 10 billion cell capsule Take by mouth daily. 024 lactobacillus rhamnosus, GG, (CULTURELLE) 10 billion cell capsule Take 1 Capsule by mouth daily. 11/08/2023 lactose-reduced food (NUTRITIONAL SUPPLEMENT ORAL) Take by mouth. magnesium oxide (MAG-OX) 400 mg (241.3 mg magnesium) tablet Take 2,000 mg by mouth 2 times daily. 11/08/2023 melatonin 5 mg tablet,disintegrating 2 tabs at hs 01/20/20222023 predniSONE (DELTASONE) 10 mg tablet 4 tablets once a day for 2 days; then 3 tablets once a day for 3 days; then 2 tablets once a day for 3 days; then 1 tablet once a day for 3 days 26 Tablet 07/17/2022 03/05/2023 sertraline (ZOLOFT) 100 mg tablet TAKE 1 TABLET BY MOUTH ONCE DAILY DIRECTED 11/15/2021 02/01/2023 SPIRIVA WITH HANDIHALER 18 mcg inhalation capsuleIndications:Ast hma in adult, moderate persistent, uncomplicated INHALE THE CONTENTS OF ONE CAPSULE VIA HANDIHALER BY MOUTH EVERY DAY 90 Capsule 10/16/2022 03/05/2023 documented as of this encounter Discharge Disposition Disposition Code Departure Means Destination Home or Self Care documented in this encounter H&P Notes * Kevin Cleveland MD - 01/04/2023 0930 EDT Endoscopy Sedation for Procedure History & Physical Date: 01/04/2023 Time: 9:08 Location: [facility] Endoscopy Planned Procedure: Colonoscopy/Upper Endoscopy Chief Complaint/Indications for Procedure: Dysphasia, diarrhea History Previous Complication with Sedation and/or Anesthesia? No Allergies: Allergies Allergen Reactions ??? Azithromycin Patient states that this is not an allergy anymore and needs to be removed Current Medications: Current Outpatient Medications Medication ??? acetaminophen (TYLENOL) 650 mg CR tablet ??? ADVAIR HFA 230-21 mcg/actuation inhaler ??? albuterol (ACCUNEB) 2.5 mg /3 mL (0.083 %) nebulizer solution ??? albuterol 90 mcg/actuation inhaler ??? ALLERGARD GLOVES MISC ??? Cholecalciferol, Vitamin D3, 50 mcg capsule ??? DM/p-ephed/acetaminoph/doxylam (NYQUIL ORAL) ??? DM/pseudoephed/acetaminophen (VICKS DAYQUIL ORAL) ??? fexofenadine (PRAVIN) 180 mg tablet ??? fluticasone propionate (FLONASE) 50 mcg/actuation nasal spray ??? glucosamine/chondr anguiano A sod (OSTEO BI-FLEX ORAL) ??? ketotifen (ZADITOR) 0.025 % (0.035 %) ophthalmic solution ??? L-Methylfolate 15 mg tablet ??? Lactobacillus acidophilus (PROBIOTIC) 10 billion cell capsule ??? lactobacillus rhamnosus, GG, (CULTURELLE) 10 billion cell capsule ??? lactose-reduced food (NUTRITIONAL SUPPLEMENT ORAL) ??? lamoTRIgine (LAMICTAL) 200 mg tablet ??? Lavender Oil oil ??? Leg Brace (KNEE STABILIZER) misc ??? lisdexamfetamine (VYVANSE) 10 mg capsule ??? lisinopriL (PRINIVIL) 40 mg tablet ??? LORazepam (ATIVAN) 1 mg tablet ??? Magnesium Gluconate 27 mg magnesium (500 mg) tablet ??? magnesium oxide (MAG-OX) 400 mg (241.3 mg magnesium) tablet ??? melatonin 5 mg tablet,disintegrating ??? moxifloxacin (VIGAMOX) 0.5 % ophthalmic solution ??? Multivitamins with Minerals tablet tablet ??? naproxen (NAPROSYN) 500 mg tablet ??? omeprazole (PRILOSEC) 20 mg capsule ??? oxygen-air delivery systems (HORIZON NASAL CPAP SYSTEM MISC) ??? predniSONE (DELTASONE) 10 mg tablet ??? sertraline (ZOLOFT) 100 mg tablet ??? SPIRIVA WITH HANDIHALER 18 mcg inhalation capsule ??? traZODone (DESYREL) 100 mg tablet ??? UNABLE TO FIND ??? VITAMINS B COMPLEX tablet ??? VYVANSE 30 mg capsule Current Facility-Administered Medications Medication Route Frequency ??? sodium chloride 0.9 % (NS) infusion intravenous PRN Or ??? lactated ringers (LR) infusion intravenous PRN ??? lidocaine (PF) 10 mg/mL (1 %) injection 2 mg intradermal PRN ??? lidocaine (PF) 10 mg/mL (1 %) injection 2 mg intradermal PRN ??? ondansetron (PF) (ZOFRAN) injection 4 mg intravenous Once PRN ??? sodium chloride 0.9 % (flush) flush 5 mL intravenous PRN Past Medical History: Past Medical History: Diagnosis Date ??? Anomaly, cardiac Heart palpitations ??? Asthma ??? GERD (gastroesophageal reflux disease) ??? Hypertension ??? Mental disorder Bipolar Social History: Past Surgical History: Procedure Laterality Date ??? SECTION x2 ??? TONSILLECTOMY ??? TUBAL LIGATION ??? TYMPANOSTOMY TUBE PLACEMENT Social History Tobacco Use ??? Smoking status: Former Packs/day: 1.00 Years: 10.00 Pack years: 10.00 Types: Cigarettes Start date: 2003 Quit date: 2013 Years since quittin.3 ??? Smokeless tobacco: Never ??? Tobacco comments: edible marijuana in the evening Substance Use Topics ??? Alcohol use: Not Currently Family History: Family History Problem Relation Age of Onset ??? Allergic Rhinitis Mother ??? Cancer Mother ??? Hearing Loss Maternal Grandmother ??? Cancer Maternal Grandfather ??? Heart Disease Maternal Grandfather Review of Systems as pertinent: Physical Exam Vital Signs: BP (!) 146/82 Temp 36.9 ??C (98.5 ??F) (Oral) Resp 16 Ht 162.6 cm (64) Wt (!)173.3 kg (382 lb) LMP 01/01/2023 SpO2 100% BMI 65.57 kg/m?? Heart Examination: Respiratory Examination: Abdominal Examination: Additional physical exam related to the proposed procedure, patient activity, disease state and treatment as pertinent: Assessment Previous complications with sedation or anesthesia?: No Plan: Proceed with sedation for procedure Fasting Time: Date of Last Liquid: 01/04/23 Time of Last Liquid: 0615 Date of Last Solid: 01/03/23 Time of Last Solid: 0900 Patient Appropriate Candidate for Planned Sedation?: Yes Kevin Cleveland MD 01/04/2023 9:08 documented in this encounter Plan of Treatment Not on file documented as of this encounter Procedures Procedure Name Priority Date/Time Associated Diagnosis Comments ECG REPORT - SCANNED 01/05/2023 10:51 EDT ESOPHAGEAL PH PROBE Routine 01/04/2023 9 :30 EDT Dysphagia, unspecified type Gastroesophageal reflux disease, unspecified whether esophagitis present Encounter for swallowing study UPPER ENDOSCOPY (EGD) Routine 01/04/2023 9:30 EDT Dysphasia Gastroesophageal reflux disease, unspecified whether esophagitis present Encounter for screening for upper gastrointestinal disorder COLONOSCOPY Routine 01/04/2023 9:30 EDT Special screening for malignant neoplasms, colon Blood in stool Diarrhea, unspecified type SURGICAL PATHOLOGY Routine 01/04/2023 9: 27 EDT Special screening for malignant neoplasms, colon Blood in stool Diarrhea, unspecified type Dysphasia Gastroesophageal reflux disease, unspecified whether esophagitis present Encounter for screening for upper gastrointestinal disorder Dysphagia, unspecified type Encounter for swallowing study documented in this encounter Results * ECG REPORT - SCANNED (01/05/2023 10:51 EDT) 01/05/2023 10:5 1 EDT Scan 2 Farm Operations Technical Director PROCEDURE/MINOR SHEILA GICAL ORDERABLES * ESOPHAGEAL PH PROBE (01/04/2023 9:30 EDT) Anatomical Region Laterality Modality Endoscopy Narrative 01/04/2023 9:30 EDT [facility] ?? [address] [facility], [place], [place] [address] ?? Patient Name ?JUAN A CONNELLY Date of ?1985 Record Number ?[id number] Date/Time of Procedure ?01/04/2023, 09:30:00 AM Endoscopist ?Kevin Cleveland ?? Group Home Supervisor ? Referring Physician(s) ?? ROSETTE Bosch Anesthesiologist ? Procedure Performed: Esophageal pH Probe Indications for Exam: reflux Instruments: ? LANDON pH Capsule ??Lot # [id number] lOT# [id number] Medications: ?None ? Visualization: ? Good ?Tolerance: Good ?Complications: None ? Extent of Exam: ?Limitations: ?? Procedure Technique: A physical exam was performed. Informed consent was obtained from the patient after explaining all the risks (perforation, bleeding, and infection) , benefits and alternatives to the procedure which the patient appeared to understand and so stated. ??48 ??hour ambulatory pH study was performed using the [employer] [place] system with the wireless landon pH capsule. ??The location of the LES was determined by endoscopy. ??The pH sensor was then inserted orally and suction was applied for 30 seconds. ??The capsule was then deployed. ?? Acid reflux was defined as a drop in the pH below 4.0 in the distal esophagus. The following findings were noted: Findings: Patient was off acid suppression medication. On the first day, total % time pH <4 was 7.1% (normal <4.9%), upright 14% (normal <7.3%), and supine 4% (normal < 1.4%). DeMeester score 24.5 On the second day, total % time pH <4 was 14.2% (normal <4.9%, upright 30.1% (normal <7.3%), and supine 0.4% (normal <1.4%). DeMeester score 38.2 There was no significant correlation between acid reflux events and the symptoms of heartburn and chest pain Endoscopic Diagnosis: GERD Recommendations: Referral to surgery to discuss anti-reflux surgery Sedation Start: ?Sedation End: Signature: Kevin Cleveland M.D. This note was electronically signed on 01/09/2023 04:04:32 PM By Kevin Cleveland M.D. Kevin Cleveland MD GI PROCEDURE ORDERA BLES * UPPER ENDOSCOPY (EGD) (01/04/2023 9:30 EDT) Anatomical Region Laterality Modality Endoscopy Narrative 01/04/2023 9:30 EDT [facility] ?? [address], [place], [place] [address] ?? Patient Name ?JUAN A CONNELLY Date of ?1985 Record Number ?[id number] Date/Time of Procedure ?01/04/2023, 09:30:00 AM Endoscopist ?Kevin Cleveland ?? Group Home Supervisor ? Referring Physician(s) ?? ROSETTE Bosch Anesthesiologist ? Procedure Performed: Upper Endoscopy (EGD) Indications for Exam: GERD Instruments: ? [id number] ([id number]) Medications: ?Per Anesthesia ? Visualization: ? Good ?Tolerance: Good ?Complications: None ? Extent of Exam: ?2nd portion duodenum ? Limitations: ?? Procedure Technique: A physical exam was performed. Informed consent was obtained from the patient after explaining all the risks (perforation, bleeding, infection and adverse effects to the medicine) , benefits and alternatives to the procedure which the patient appeared to understand and so stated. ??The patient was connected to the monitoring devices and placed in the left lateral position. Continuous oxygen was provided with a nasal cannula and IV medicine administered by an Anesthesiologist through an indwelling cannula. After adequate sedation was achieved, the esophagus was intubated and the scope advanced under direct visualization to the 2nd portion duodenum. The 2nd portion duodenum was identified by visual landmarks. The scope was subsequently removed slowly while carefully examining the color, texture, anatomy, and integrity of the mucosa on the way out. The patient was subsequently transferred to the recovery area in satisfactory condition. The following findings were noted: Findings: Esophagus - mild erosive esophagitis (LA Class B). Non-obstructing Schatzki ring. Cold forceps biopsies taken from proximal and distal esophagus to exclude eosinophilic esophagitis. pH probe succesfully deployed at 29cm (GE junction at 35cm) Stomach - normal. Cold forceps biopsies taken from antrum and body to exclude H. Pylori Duodenum - normal. Cold forceps biopsies taken from duodenum to exclude celiac disease Endoscopic Diagnosis: Mild erosive esophagitis and non-obstructing Schatzki ring Recommendations: Follow up biopsy results Follow up 48 hour ambulatory pH probe results Sedation Start: ?Sedation End: Signature: Kevin Cleveland M.D. This note was electronically signed on 01/04/2023 09:52:51 AM By Kevin Cleveland M.D. Kevin Cleveland MD GI PROCEDURE ORDERA BLES * COLONOSCOPY (01/04/2023 9:30 EDT) Anatomical Region Laterality Modality Endoscopy Narrative 01/04/2023 9:30 EDT [facility] ?? [address] [address] ?? Patient Name ?JUAN A CONNELLY Date of ?1985 Record Number ?[id number] Date/Time of Procedure ?01/04/2023, 09:30:00 AM Endoscopist ?Kevin Cleveland ?? Group Home Supervisor ? Referring Physician(s) ?? ROSETTE Bosch Anesthesiologist ? Procedure Performed: COLONOSCOPY Indications for Exam: Diarrhea Instruments: ? [id number] ([id number]) Medications: ?Per Anesthesia ? Visualization: ? Good ?Tolerance: Good ?Complications: None ? Extent of Exam: ?terminal ileum ? Limitations: ?? Procedure Technique: A physical exam was performed. Informed consent was obtained from the patient after explaining all the risks (perforation, bleeding, infection and adverse effects to the medicine) , benefits and alternatives to the procedure which the patient appeared to understand and so stated. The patient was connected to monitoring devices and placed in the left lateral postion, continuous oxygen was provided with a nasal cannula. IV medications were administered by an Anesthesiologist through indwelling cannula. After anesthesia was achieved a digital exam was performed and ??the colonoscope was introduced into the rectum and advanced under direct visualzation to the terminal ileum. The ??was identified by visual landmarks .The scope was subsequently removed slowly while carefully examining the color, texture, anatomy, and integrity of the mucosa on the way out. The patient was subsequently transferred to the recovery area in satisfactory condition. The following procedure was performed and findings noted: Findings: 2 to 3 mm sessile polyp in the sigmoid colon. Polypectomy performed with biopsy forcep. Polyp retrieved. Histology pending. Mucosa otherwise normal to terminal ileum. Random cold forceps biopsies taken throughout colon to exclude microscopic colitis External hemorrhoids Endoscopic Diagnosis: Colon polyp Recommendations: Await pathology;The office will contact you by phone or mail as indicated. Please call the office if you do not hear from us. Sedation Start: ?Sedation End: Signature: Kevin Cleveland M.D. This note was electronically signed on 01/04/2023 10:16:42 AM By Kevin Cleveland M.D. Kevin Cleveland MD GI PROCEDURE ORDERA BLES * SURGICAL PATHOLOGY (01/04/2023 9:27 EDT) Note to Patient The following pathology results have been interpreted by your pathologist and may be available to you before your health provider has had the opportunity to review them. Please allow time for your provider to receive these results and explore management options, if applicable. 01/10/2023 15:06 EDT [facility] Final Diagnosis A. STOMACH, BIOPSY: - Antral and oxyntic mucosae with no significant pathologic change. - No intestinal metaplasia or dysplasia. - No evidence of Helicobacter pylori, confirmed by negative immunostain. B. ESOPHAGUS, BIOPSY: - Squamous mucosa with few patchy areas of mixed acute and chronic inflammation reactive epithelial changes, consistent with reflux esophagitis. - Markedly rare, minute detached fragment of foveolar epithelium; negative for intestinal metaplasia. - No significant increase in intraepithelial eosinophils. C. DUODENUM, BIOPSY: - Duodenal mucosa with a patchy, mild increase in intraepithelial lymphocytes within villous tips. See comment. - Villous architecture appears intact. D. COLON, RANDOM BIOPSIES: - Benign colonic mucosa with no significant pathologic change. - No evidence of microscopic colitis. E. SIGMOID COLON, POLYP, BIOPSY: - Benign fibroblastic polyp. 01/10/2023 15:06 [facility] Diagnosis Comment Specimen B: The findings reviewed above in the duodenal biopsy are nonspecific. Increased intraepithelial lymphocytes with normal villous architecture may be seen in a variety of conditions, including mild peptic injury, medication effect (NSAID injury), and in mild forms of gluten-sensitive enteropathy. Clinical correlation is required for further evaluation, and correlation with serologic studies (ie, tTG IgA) may be considered as is clinically appropriate. 01/10/2023 15:06 [facility] Attestation By the signature below, the attending physician certifies that they have 1) personally conducted a gross and/or microscopic examination of the described specimen(s), and/or personally interpreted the results of laboratory testing of the described specimen(s), and 2) personally rendered or confirmed the above diagnosis. 01/10/2023 15:06 [facility] at 1506 Ancillary Studies Immunoperoxidase stains were performed on this case to further characterize evaluate for Helicobacter pylori (specimen A) given the findings in specimen C (increased intraeipithelial lymphocytes can be seen in H. pylori infection), and to evaluate the spindled cells in specimen E. ANTIBODY(CLONE)(BLOCK ): RESULT H pylori (Rabbit Monoclonal (SP48), [place])(A1): Negative S-100 Protein DAB (4C4.9, [place])(E1): Negative, excluding schwann cell hamartoma DOG-1 (K9,[place])(E1): Negative, excluding gastrointestinal stromal tumor The technical component of the above immunohistochemical stain(s) was performed at the [facility] Pathology Department, [address] [place] [id number] (CLIA [id number]), and the professional interpretation component was performed at the [facility] Pathology Department, [address] [address] (CLIA [id number]). NOTE: One or more of the reagents used in immunohistochemical testing in this case may not have been cleared or approved by the U.S. Food and Drug Administration (FDA). The FDA has determined that such clearance or approval is not necessary. These tests are used for clinical purposes. They should not be regarded as investigational or for research. These reagents' performance characteristics have been determined by [facility] and/or by the referring laboratory. The positive and negative controls worked appropriately. If immunoperoxidase staining has been performed on alcohol fixed cytology specimens, which has not been fully validated, the assays should be interpreted with caution and correlated with clinical data. This laboratory is certified under the Clinical Laboratory Improvement Amendments of 1988 (CLIA-88) as qualified to perform high complexity clinical laboratory testing. 01/10/2023 15:06 EDT [facility] Clinical History Special screening for malignant neoplasms, colon Blood in stool Diarrhea, unspecified type Dysphasia Gastroesophageal reflux disease, unspecified whether esophagitis present Encounter for screening for upper gastrointestinal disorder Dysphagia, unspecified type Encounter for swallowing study 01/10/2023 15:06 [facility] Gross Description A. Received in formalin labeled ? Juan A Connelly? and ? gastric BXs? are 4 mucosal tissue fragments ranging in size from 0.2 x 0.2 x 0.1 cm up to 0.8 x 0.2 x 0.1 cm. Entirely submitted in A1. B. Received in formalin labeled ? Juan A Jarvis Connelly? and ? esophageal BXs? are 4 mucosal tissue fragments ranging in size from 0.3 x 0.2 x 0.1 cm up to 0.5 x 0.2 x 0.1 cm. Entirely submitted in B1. C. Received in formalin labeled ? Juan A Jarvis Connelly? and ? duodenal BXs? are 8 mucosal tissue fragments ranging in size from 0.1 x 0.1 x 0.1 cm up to 0.5 x 0.2 x 0.1 cm. Entirely submitted in C1. D. Received in formalin labeled ? Juan A Connelly? and open point random BXs? are 21 mucosal tissue fragments ranging in size from less than 0.1 cm up to 0.8 x 0.1 x 0.1 cm. Entirely submitted in 3 cassettes. E. Received in formalin labeled ? Juan A Connelly? and ? sigmoid polyp? is a single mucosal tissue fragment measuring 0.5 x 0.2 x 0.2 cm in greatest dimension. Entirely submitted in E1. ANKUSH LEW 01/04/2023 13:03 01/10/2023 15:06 EDT [facility] Performing Lab [facility] 01/10/2023 15:06 EDT [facility] Scanned Images 01/10/2023 15:06 EDT [facility] Tissue SPECIMEN FROM STOMACH OBTAINED BY TOTAL GASTRECTOMY / Unknown 01/04/2023 9:27 EDT 01/04/2023 12:34 EDT Tissue specimen (specimen) ESOPHAGEAL STRUCTURE / Unknown 01/04/2023 9:27 EDT 01/04/2023 12:34 EDT Tissue specimen (specimen) DUODENAL STRUCTURE / Unknown 01/04/2023 9:28 EDT 01/04/2023 12:34 EDT Tissue specimen (specimen) COLON STRUCTURE / Unknown 01/04/2023 9:28 EDT 01/04/2023 12:34 EDT Tissue specimen (specimen) POLYP OF COLON / Unknown 01/04/2023 10:12 EDT 01/04/2023 12:34 EDT Kevin Cleveland MD PATHOLOGY ORDERABLE S [facility] [address] [place] [address] documented in this encounter Visit Diagnoses Diagnosis Special screening for malignant neoplasms, colon Blood in stool Diarrhea, unspecified type Dysphasia Other speech disturbance Gastroesophageal reflux disease, unspecified whether esophagitis present Encounter for screening for upper gastrointestinal disorder Special screening for other specified conditions Dysphagia, unspecified type Encounter for swallowing study Screening for unspecified condition documented in this encounter Administered Medications Inactive Administered Medications - up to 3 most recent administrations Medication Order MAR Action Action Date Dose Rate Site lactated ringers (LR) infusion 30 mL/hr, intravenous, PRN, Starting on Ro 01/04/23 at 0834, Until 01/06/23 at 0202, Routine, Preprocedure Continued by Anesthesia 01/04/2023 9:25 EDT 30 mL/hr New Bag 01/04/2023 9:23 EDT 30 mL/hr 30 mL/hr documented in this encounter Historical Medications * This list may reflect changes made after this encounter. Medication Sig Dispensed Refills Start Date End Date traZODone (DESYREL) 100 mg tabletIndications:insomni a associated with depression Take 1 Tablet by mouth at bedtime. omeprazole (PRILOSEC) 20 mg capsuleIndications:gastro esophageal reflux disease Take 2 Capsules by mouth 2 times daily. added in this encounter Orders Medications Ordered That Esequiel ht Not Have Been Administered Count Last Ordered Date First Ordered Date acetaminophen (TYLENOL) tablet 975 mg 1 lidocaine (PF) 10 mg/mL (1 % ) injection 2 mg 2 01/04/2023 ondansetron (PF) (ZOFRAN) injection 4 mg 1 01/04/2023 sodium chloride 0.9 % (flush) flush 5 mL 1 01/04/2023 sodium chloride 0.9 % (NS) infusion 1 01/04 documented in this encounter Care Teams Machine Rebuilder Relationship Specialty Start Date End Date Trisha Jacobson APRN [address] [place] [phone] PCP - General 08/28/21 11/13/23 Whitley Sage MBBS [address] [place] [address], [address] [place] [address] Consulting Clinician Pulmonary Disease 05/01/22 documented as of this encounter
--- OUTSIDE RECORDS SUMMARY | 2024-07-15 21:47 | XMS_ITS | Encounter Summary ---
Author Organization [facility] Address [address] [place] [address] Care Team Providers Care Practice Support Specialist Name Role Phone Trisha Jacobson APRN Primary Care Provider + Whitley Sage Unavailable Reason for Referral * Radiology Services (Routine/Next Available) - Authorization Not Required Specialty Diagnoses / Procedures Referred By Contac t Referred To Contact Diagnoses Other specified cough Other chest pain Procedures XR CHEST 2 VIEWS Trisha Jacobson APRN [address] [place] [address] [facility] Referral ID Status Reason Start Date Expiration Date Visits Requested Visits Authorized [id number] Authorization Not Required 12/21/2022 1 1 Reason for Visit * Radiology Services (Routine/Next Available) - Authorization Not Required Specialty Diagnoses / Procedures Referred By Contac t Referred To Contact Diagnoses Other specified cough Other chest pain Procedures XR CHEST 2 VIEWS Trisha Jacobson APRN [address] [place] [address] [facility] Referral ID Status Reason Start Date Expiration Date Visits Requested Visits Authorized [id number] Authorization Not Required 12/21/2022 1 1 Encounter Details Date Type Department Care Team (Latest Contact Info) Description 12/27/2022 15:10 EDT - 12/27/2022 23:59 EDT Hospital Encounter [facility] X[facility] [address] [place] [address] Other specified cough; Other chest pain Discharge Disposition: Home or Self Care Social [...] MISC) by misc (non-drug; combo route) route. UNABLE TO FIND Med Name: THC edibles VITAMINS B COMPLEX tablet Take 1 Tablet by mouth 2 times daily. 11/15/2021 VYVANSE 30 mg capsule TAKE 1 CAPSULE BY MOUTH IN THE MORNING ALONG WITH 10MG IN THE AFTERNOON 02/03/2022 ALLERGSHE GLOVES MIS by misc (non-drug; combo route) route. 2023 [...] or Self Care documented in this encounter Plan of Treatment Not on file documented as of this encounter Procedures Procedure Name Priority Date/Time Associated Diagnosis Comments XR CHEST 2 VIEWS Routine 12/27/2022 15:2 0 EDT Other specified cough Other chest pain documented in this encounter Results * XR CHEST 2 VIEWS (12/27/2022 15:20 EDT) Anatomical Region Laterality Modality Computed Radiogr aphy 12/27/2022 15:3 4 EDT Impressions 12/27/2022 15:34 EDT No acute finding. Narrative 12/27/2022 15:34 EDT XR CHEST 2 VIEWS ?? Signs and Symptoms/Comments: ??COUGH, CHEST PRESSURE Comparisons: 07/17/2022. FINDINGS: Chest: PA and lateral views were performed. Lungs: Lungs clear. Pleura: No pneumothorax or pleural effusion identified. Mediastinum: Unremarkable. Bones: Stable old mild lower thoracic compression fractures versus developmental variants. Procedure Note Boom Saul MD - 12/27/2022 XR CHEST 2 VIEWS Signs and Symptoms/Comments: COUGH, CHEST PRESSURE Comparisons: 07/17/2022. FINDINGS: Chest: PA and lateral views were performed. Lungs: Lungs clear. Pleura: No pneumothorax or pleural effusion identified. Mediastinum: Unremarkable. Bones: Stable old mild lower thoracic compression fractures versusdevelopmental variants. IMPRESSION No acute finding. Trisha Jacobson APRN IMG DIAGNOSTIC I MAGING ORDERABLES documented in this encounter Visit Diagnoses Diagnosis Other specified cough Other chest pain documented in this encounter Care Teams Practice Support Specialist Relationship Specialty Start Date End Date Trisha Jacobson APRN [address] [place] [phone] PCP - General 08/28/21 11/13/23 Whitley Sage MBBS [address] [place] [address], [address] [place] [phone] Consulting Clinician Pulmonary Disease 05/01/22 documented as of this encounter
--- OUTSIDE RECORDS SUMMARY | 2024-07-15 21:47 | XMS_ITS | Encounter Summary ---
Author Organization [facility] Address [address] [place] [address] Care Team Providers Care Information Technology Officer Name Role Phone Kavon Trisha Camara APRN Primary Care Provider + Whitley Sage MBBS Unavailable Reason for Referral * Radiology Services (Routine/Next Available) - Authorization Not Required Specialty Diagnoses / Procedures Referred By Contac t Referred To Contact Nuclear Medicine Diagnoses Early satiety Procedures NM GASTRIC EMPTYING SOLID Kevin Cleveland MD [facility] [address] [place] [address] [facility] Referral ID Status Reason Start Date Expiration Date Visits Requested Visits Authorized [id number] Authorization Not Required 2 1 1 Reason for Visit * Radiology Services (Routine/Next Available) - Authorization Not Required Specialty Diagnoses / Procedures Referred By Contac justin Referred To Contact Nuclear Medicine Diagnoses Early satiety Procedures NM GASTRIC EMPTYING Kevin Kim MD [facility] [address] [place] [address] [facility] Referral ID Status Reason Start Date Expiration Date Visits Requested Visits Authorized [id number] Authorization Not Required 2 1 1 Encounter Details Date Type Department Care Team (Latest Contact Info) Description 09/22/2022 10:52 EST - 09/22/2022 23:59 EST Hospital Encounter [facility] Nuclear Medicine [address] [place] [address] Early satiety Discharge Disposition: Home or Self Care Social [...] mg tablet 1 tab twice daily 01/23/2022 oxygen-air delivery systems (HORIZON NASAL CPAP SYSTEM MISC) by misc (non-drug; combo route) route. UNABLE TO FIND Med Name: THC edibles VITAMINS B COMPLEX tablet Take 1 Tablet by mouth 2 times daily. 11/15/2021 VYVANSE 30 mg capsule TAKE 1 CAPSULE BY MOUTH IN THE MORNING ALONG WITH 10MG IN THE AFTERNOON 02/03/2022 acetylcysteine (NAC) 600 mg capsule Take 600 mg by mouth daily. 11/30/2022 ALLERGARD GLOVES MISC by misc (non-drug; combo route) route. 2023 aminocaproic acid (AMICAR) 500 mg tablet Take 1,000 mg by mouth. BID 11/30/2022 ascorbic acid, vitamin C, (VITAMIN C) 500 mg tablet Take 500 mg by mouth daily. 11/30/2022 blue-green algae (SPIRULINA MISC) 500 mg by misc (non-drug; combo route) route daily. 6 tablets every AM 11/30/2022 buPROPion (WELLBUTRIN XL) 150 mg XL tablet Take 150 mg by mouth daily. 11/30/2022 DM/p-ephed/acetaminoph /doxylam (NYQUIL ORAL) Take by mouth at bedtime as needed. 11/08/2023 DM/pseudoephed/acetami nophen (VICKS DAYQUIL ORAL) Take by mouth as needed. 11/08/2023 ferrous sulfate 325 mg (65 mg iron) tablet Take 1 Tablet by mouth. 07/24/2022 04/28/2024 glucosam/artur-msm1/C/m ang/bosw (OSTEO BI-FLEX TRIPLE STRENGTH ORAL) Take 2 Tablets by mouth daily. 11/30/2022 glucosamine/chondr anguiano A sod (OSTEO BI-FLEX ORAL) [...] BY MOUTH ONCE DAILY DIRECTED 11/15/2021 02/01/2023 tiotropium (SPIRIVA) 18 mcg inhalation capsuleIndications:Ast hma in adult, moderate persistent, uncomplicated Inhale 1 capsule as directed daily. 1 Each 5 05/05/2022 10/16/2022 documented as of this encounter Discharge Disposition Disposition Code Departure Means Destination Home or Self Care documented in this encounter Plan of Treatment Not on file documented as of this encounter Procedures Procedure Name Priority Date/Time Associated Diagnosis Comments NM GASTRIC EMPTYING SOLID Routine 09/22/2022 13:20 EST Early satiety documented in this encounter Results * NM GASTRIC EMPTYING SOLID (09/22/2022 13:20 EST) Anatomical Region Laterality Modality Body Nuclear Medicine 09/22/2022 14:1 5 EST Impressions 09/22/2022 14:15 EST Normal gastric emptying. Narrative 09/22/2022 14:15 EST INDICATION: Early satiety, epigastric pain, vomiting TECHNIQUE: ??A standard gastric emptying study was performed. An egg and toast meal containing 0.5 mCi of technetium 99m sulfur colloid was administered, with subsequent planar imaging. COMPARISON: None. FINDINGS:Normal gastric emptying is seen. The T1/2 gastric emptying time is 36 minutes. Procedure Note Stanislaw Kenyon MD - 09/22/2022 INDICATION: Early satiety, epigastric pain, vomiting TECHNIQUE: A standard gastric emptying study was performed. An egg andtoast meal containing 0.5 mCi of technetium 99m sulfur colloid wasadministered, with subsequent planar imaging. COMPARISON: None. FINDINGS:Normal gastric emptying is seen. The T1/2 gastric emptying timeis 36 minutes. IMPRESSION Normal gastric emptying. Kevin Cleveland MD IM NM ORDERABLES documented in this encounter Visit Diagnoses Diagnosis Early satiety documented in this encounter Administered Medications Inactive Administered Medications - up to 3 most recent administrations Medication Order MAR Action Action Date Dose Rate Site technetium (Tc-99m) sulfur colloid injection 0.5 millicurie 0.5 millicurie, oral, NOW X1, 1 dose, On Sun09/22/22 at 1130, Routine Given 09/22/2022 11:10 EST 0.5 millicuries documented in this encounter Orders Medications Ordered That Esequiel ht Not Have Been Administered Count Last Ordered Date First Ordered Date technetium (Tc-99m) sulfur c olloid injection 0.5 millicurie 1 09/22/2022 documented in this encounter Care Teams Information Technology Officer Relationship Specialty Start Date End Date Trisha Jacobson APRN [address] [place] [phone] PCP - General 08/28/21 11/13/23 Whitley Sage MBBS [address] [place] [address], [address] [place] [phone] Consulting Clinician Pulmonary Disease 05/01/22 documented as of this encounter
--- OUTSIDE RECORDS SUMMARY | 2024-07-15 21:47 | XMS_ITS | Encounter Summary ---
Author Organization [facility] Address [address] [place] [address] Care Team Providers Care Esol Instructor Name Role Phone JacobsonDanyel banerjeebraden Camara APRN Primary Care Provider + Whitley Sage MBSUSHIL Unavailable Encounter Details Date Type Department Care Team (Latest Contact Info) Description 09/11/2023 Transcribe Orders [facility] - Main [place] [address] [place] [address] [place] [address] Hypomagnesemia (Primary Dx) Social History Tobacco Use Types [...] documented as of this encounter Results * MAGNESIUM (09/11/2023 14:59 EST) Magnesium 2.0 1.7 - 2.8 mg/dL 09/11/2023 15:37 EST [facility] Comment:Slight hemolysis jules ntified, interpret with caution as results may be affected due to hemolysis. Blood VENOUS BLOOD / Unknown Venipuncture / Unknown 09/11/2023 14:59 EST 09/11/2023 15:09 EST Diane Seamus CHEMISTRY & BLOOD GA S ORDERABLES Performing Organization Address City/State/[facility] Co de Phone Number [facility] [address] [place] [address] documented in this encounter Visit Diagnoses Diagnosis Hypomagnesemia- Primary Disorders of magnesium metabolism documented in this encounter Care Teams Esol Instructor Relationship Specialty Start Date End Date Trisha Jacobson APRN [address] [place] [phone] PCP - General 08/28/21 11/13/23 Whitley Sage MBBS [address] [facility] [place] [address] Consulting Clinician Pulmonary Disease 05/01/22 documented as of this encounter
--- OUTSIDE RECORDS SUMMARY | 2024-07-15 21:47 | XMS_ITS | Encounter Summary ---
Author Organization [facility] Address [address] [place] [address] Care Team Providers Care Luster Repairer Name Role Phone Trisha Jacobson Hoa PANDYA Primary Care Provider + Whitley Sage MBBS Unavailable Reason for Visit * Reason Onset Date Comments Eye Problem 01/09/2023 Encounter Details Date Type Department Care Team ([facility] Contact Info) Description 01/09/2023 Telephone [facility] Ophthalmology [facility] [address] [place], [place] [address] Sha Andrew MD [address] [place] [address] Eye Problem Social History Tobacco Use Types Packs/Day Years [...] encounter Miscellaneous Notes * Telephone Encounter - Maxine Mesa COA - 01/09/2023 1345 EDT Cecilia reports new floaters and static vision for the past month. She does not have flashes of light. Per Dr Andrew she should be seen soon. She will be in today at 1:30. * Telephone Encounter - Lanette Salvador - 01/09/2023 0808 EDT For two weeks new floater and spider web vision through left eye No flashes of light or pain documented in this encounter Plan of Treatment Not on file documented as of this encounter Visit Diagnoses Not on filedocumented in this encounter Care Teams Luster Repairer Relationship Specialty Start Date End Date Trisha Jacobson APRN [address] [place] [phone] PCP - General 08/28/21 11/13/23 Whitley Sage MBBS [address] [place] [address], [address] [place] [phone] Consulting Clinician Pulmonary Disease 05/01/22 documented as of this encounter
--- OUTSIDE RECORDS SUMMARY | 2024-07-15 21:47 | XMS_ITS | Encounter Summary ---
Author Organization [facility] Address [address] [place] [address] Care Team Providers Care Forms Analyst Name Role Phone JacobsonDanyel banerjeebraden Camara APRN Primary Care Provider + Whitley Sage Unavailable Reason for Visit * Reason Onset Date Comments Orders (Non Pre-visit) 07/04/2022 Encounter Details Date Type Department Care Team (Late Contact Info) Description 07/04/2022 Telephone [facility] [address] [facility], [place] [address] Kerry Sosa RN Orders (Non Pre-visit) Social History Tobacco Use Types Packs/Day Years [...] encounter Miscellaneous Notes * Telephone Encounter - Kerry Sosa RN - 07/04/2022 7526 EDT Previous encounter was closed prior to sending to provider. Please see previous encounter regardingcbc and prednisone. documented in this encounter Plan of Treatment Not on file documented as of this encounter Visit Diagnoses Not on filedocumented in this encounter Care Teams Forms Analyst Relationship Specialty Start Date End Date Trisha Jacobson APRN [address] [place] [phone] PCP - General 08/28/21 11/13/23 Whitley Sage MBBS [address] [place] [address], [address] [place] [address] Consulting Clinician Pulmonary Disease 05/01/22 documented as of this encounter
--- OUTSIDE RECORDS SUMMARY | 2024-07-15 21:47 | XMS_ITS | Encounter Summary ---
Author Organization [facility] Address [address] [place] [address] Care Team Providers Care Hr Payroll Coordinator Name Role Phone Trisha Jacobson Hoa PANDYA Primary Care Provider + Whitley Sage MBBS Unavailable Encounter Details Date Type Department Care Team (Latest Contact Info) Description 08/28/[address] [facility] - Main [place] [address] [place] [address] Shauna Kramer MD [address] [place] [address] [place] [address] Obstructive sleep apnea (adult) (pediatric) (Primary Dx); Restless leg syndrome; Hypomagnesemia; Vitamin D deficiency, unspecified; Other fatigue Social History Tobacco Use Types Packs/Day Years [...] documented as of this encounter Results * (ABNORMAL) MAGNESIUM (08/28/2023 14:49 EST) Magnesium 1.5(L) 1.7 - 2.8 mg/dL 08/28/2023 15:58 EST [facility] Blood VENOUS BLOOD / Unknown Venipuncture / Unknown 08/28/2023 14:49 EST 08/28/2023 15:25 EST Shauna Kramer MD CHEMISTRY & BLOOD GA S ORDERABLES Performing Organization Address City/[facility] Co de Phone Number [facility] [address] [place] [address] * VITAMIN B12 (08/28/2023 14:49 EST) Pathologist [facility] Vitamin B12 541 211 - 911 pg/mL 08/29/2023 15:08 EST [facility] Blood VENOUS BLOOD / Unknown Venipuncture / Unknown 08/28/2023 14:49 EST 08/29/2023 12:02 EST Narrative [facility] - 08/29/2023 15:08 EST The results of this assay can be falsely elevated due to the consumption of Biotin. Shauna Kramer MD CHEMISTRY & BLOOD GA S ORDERABLES Performing Organization Address City/[facility]/ZIP Co de Phone Number [facility] [address] [place] [address] * VITAMIN D (25,OH) (08/28/2023 14:49 EST) 25OH Vitamin D Tot 46 30 - 100 ng/mL 08/29/2023 14:35 EST [facility] Blood VENOUS BLOOD / Unknown Venipuncture / Unknown 08/28/2023 14:49 EST 08/29/2023 12:02 EST Shauna Kramer MD CHEMISTRY & BLOOD GA S ORDERABLES Performing Organization Address City/[facility]/ZIP Co de Phone Number [facility] [address] [place] [address] * T4 FREE (08/28/2023 14:49 EST) T4, Free 1.4 0.8 - 2.2 ng/dL 08/29/2023 14:35 EST [facility] Blood VENOUS BLOOD / Unknown Venipuncture / Unknown 08/28/2023 14:49 EST 08/29/2023 12:02 EST Shauna Kramer MD CHEMISTRY & BLOOD GA S ORDERABLES Performing Organization Address [facility] Co de Phone Number [facility] [address] [place] [address] * TSH (08/28/2023 14:49 EST) TSH 2.84 0.47 - 4.68 mIU/L 08/29/2023 14:49 EST [facility] Blood VENOUS BLOOD / Unknown Venipuncture / Unknown 08/28/2023 14:49 EST 08/29/2023 12:02 EST Narrative [facility] - 08/29/2023 14:49 EST The results of this assay can be falsely lowered due to the consumption of Biotin. Shauna Kramer MD CHEMISTRY & BLOOD GA S ORDERABLES Performing Organization Address City/[facility]/ZIP Co de Phone Number [facility] [address] [place] [address] * (ABNORMAL) FERRITIN (08/28/2023 14:49 EST) Ferritin 9(L) 11 - 264 ng/mL 08/29/2023 14:53 EST [facility] Blood VENOUS BLOOD / Unknown Venipuncture / Unknown 08/28/2023 14:49 EST 08/29/2023 12:02 EST Narrative [facility] - 08/29/2023 14:53 EST The results of this assay can be falsely lowered due to the consumption of Biotin. Shauna Kramer MD CHEMISTRY & BLOOD GA S ORDERABLES [facility] [address] [place] [address] documented in this encounter Visit Diagnoses Diagnosis Obstructive sleep apnea (adult) (pediatric)- Primary Restless leg syndrome Restless legs syndrome (RLS) Hypomagnesemia Disorders of magnesium metabolism Vitamin D deficiency, unspecified Other fatigue documented in this encounter Care Teams Hr Payroll Coordinator Relationship Specialty Start Date End Date Trisha Jacobson APRN [address] [place] [phone] PCP - General 08/28/21 11/13/23 Whitley Sage MBBS [address] [facility], [address] [place] [address] Consulting Clinician Pulmonary Disease 05/01/22 documented as of this encounter
--- OUTSIDE RECORDS SUMMARY | 2024-07-15 21:47 | XMS_ITS | Encounter Summary ---
Author Organization [facility] Address [address] [place] [address] Care Team Providers Care Cutter Grind Tool Technician Name Role Phone Trisha Jacobson Hoa PANDYA Primary Care Provider + Whitley Sage MBSUSHIL Unavailable Encounter Details Date Type Department Care Team ([facility] Contact Info) Description 02/01/2023 Orders Only [facility] Endoscopy [address] [place], [place] [phone] Kevin Cleveland MD [facility] [address] [place] [address] Social History Tobacco Use Types Packs/Day Years [...] suspected to have Coronavirus/COVID-19? No / Unsure 2023 14:50 EDT documented as of this encounter Functional [...] Dispensed Refills Start Date End Da te amitriptyline (ELAVIL) 10 mg tablet Take 1 Tablet by mouth at bedtime. 90 Tablet 02/01/2023 documented in this encounter Progress Notes * Kevin Cleveland MD - 02/01/2023 7984 EDT Patient called with diarrhea and abdominal pain which improved after starting simethicone. We reviewed that she has IBS-D. I recommended the low FODMAP diet, metamucil wafers, loperamide as needed, and reviewed the role of Bentyl and Amitriptyline. Patient was interested in amitriptyline. Will start amitriptyline 10mg at bedtime. If effective, would use for 6 months before stopping it Kevin Cleveland MD documented in this encounter Plan of Treatment Not on file documented as of this encounter Visit Diagnoses Not on filedocumented in this encounter Discontinued Medications Medication Sig Discontinue Reason Start Date End Da te sertraline (ZOLOFT) 100 mg tablet TAKE 1 TABLET BY MOUTH ONCE DAILY DIRECTED 11/15/2021 02/01/2023 documented as of this encounter Care Teams Cutter Grind Tool Technician Relationship Specialty Start Date End Date Trisha Jacobson, MUMTAZ [address] [place] [address] PCP - General 08/28/21 11/13/23 Whitley Sage MBBS [address] [place] [address], [address] [place] [address] Consulting Clinician Pulmonary Disease 05/01/22 documented as of this encounter
--- OUTSIDE RECORDS SUMMARY | 2024-07-15 21:47 | XMS_ITS | Encounter Summary ---
Author Organization [facility] Address [address] [place] [address] Care Team Providers Care Alarm Technician Name Role Phone JacobsonDanyel banerjeebraden Camara APRN Primary Care Provider + Whitley Sage MBSUSHIL Unavailable Encounter Details Date Type Department Care Team ([facility] Contact Info) Description 08/28/2023 14:45 EST Phlebotomy Only [facility] - Outpatient Phlebotomy Drawing [address] [place], [place] [id number] Lab, [facility] [place] Obstructive sleep apnea (adult) (pediatric); Restless leg syndrome; Hypomagnesemia; Vitamin D deficiency, [...] Priority Date/Time Associated Diagnosis Comments MAGNESIUM Routine 08/28/2023 14:49 EST Obstructive sleep apnea (adult) (pediatric) Restless leg syndrome Hypomagnesemia Vitamin D deficiency, unspecified Other fatigue documented in this encounter Results * (ABNORMAL) MAGNESIUM (08/28/2023 14:49 EST) Magnesium 1.5(L) 1.7 - 2.8 mg/dL 08/28/2023 15:58 EST [facility] Blood VENOUS BLOOD / Unknown Venipuncture / Unknown 08/28/2023 14:49 EST 08/28/2023 15:25 EST Shauna Kramer MD CHEMISTRY & BLOOD GA S ORDERABLES Performing Organization Address City/State/[facility] Co de Phone Number [facility] [address] [place] [address] documented in this encounter Visit Diagnoses Diagnosis Obstructive sleep apnea (adult) (pediatric) Restless leg syndrome Restless legs syndrome (RLS) Hypomagnesemia Disorders of magnesium metabolism Vitamin D deficiency, unspecified Other fatigue documented in this encounter Care Teams Alarm Technician Relationship Specialty Start Date End Date Trisha Jacobson APRN [address] [place] [phone] PCP - General 08/28/21 11/13/23 Whitley Sage MBBS [address] [facility]-, [address] [place] [address] Consulting Clinician Pulmonary Disease 05/01/22 documented as of this encounter
--- OUTSIDE RECORDS SUMMARY | 2024-07-15 21:47 | XMS_ITS | Encounter Summary ---
Author Organization [facility] Address [address] [place] [address] Care Team Providers Care Radiation Therapist Name Role Phone Kavon Trisha Camara APRN Primary Care Provider + Whitley Sage Unavailable Diane [address] Primary Care Provider [phone] Encounter Details Date Type Department Care Team (Late st Contact Info) Description 08/29/2023 Orders Only [facility] Lab - Main [address] [address] Sundeep Aguero Obstructive sleep apnea (adult) (pediatric); Restless leg [...] Associated Diagnosis Comments VITAMIN D (25,OH) Routine 08/28/2023 14: 49 EST Obstructive sleep apnea (adult) (pediatric) Restless leg syndrome Hypomagnesemia Vitamin D deficiency, unspecified Other fatigue TSH Routine 08/28/2023 14:49 EST Obstructive sleep apnea (adult) (pediatric) Restless leg syndrome Hypomagnesemia Vitamin D deficiency, unspecified Other fatigue T4 FREE Routine 08/28/2023 14:49 EST Obstructive sleep apnea (adult) (pediatric) Restless leg syndrome Hypomagnesemia Vitamin D deficiency, unspecified Other fatigue FERRITIN Routine 08/28/2023 14:49 EST Obstructive sleep apnea (adult) (pediatric) Restless leg syndrome Hypomagnesemia Vitamin D deficiency, unspecified Other fatigue VITAMIN B12 Routine 08/28/2023 14:49 EST Obstructive sleep apnea (adult) (pediatric) Restless leg syndrome Hypomagnesemia Vitamin D deficiency, unspecified Other fatigue documented in this encounter Results * VITAMIN B12 (08/28/2023 14:49 EST) Vitamin B12 541 211 - 911 pg/mL 08/29/2023 15:08 EST [facility] Blood VENOUS BLOOD / Unknown Venipuncture / Unknown 08/28/2023 14:49 EST 08/29/2023 12:02 EST Narrative [facility] - 08/29/2023 15:08 EST The results of this assay can be falsely elevated due to the consumption of Biotin. Shauna Kramer MD CHEMISTRY & BLOOD GA S ORDERABLES [facility] [address] [place] [address] * VITAMIN D (25,OH) (08/28/2023 14:49 EST) 25OH Vitamin D Tot 46 30 - 100 ng/mL 08/29/2023 14:35 EST [facility] Blood VENOUS BLOOD / Unknown Venipuncture / Unknown 08/28/2023 14:49 EST 08/29/2023 12:02 EST Shauna Kramer MD CHEMISTRY & BLOOD GA S ORDERABLES [facility] [address] [place] [address] * T4 FREE (08/28/2023 14:49 EST) T4, Free 1.4 0.8 - 2.2 ng/dL 08/29/2023 14:35 EST [facility] Blood VENOUS BLOOD / Unknown Venipuncture / Unknown 08/28/2023 14:49 EST 08/29/2023 12:02 EST Shauna Kramer MD CHEMISTRY & BLOOD GA S ORDERABLES Performing Organization Address [facility] Co de Phone Number [facility] [address] [place] [address] * TSH (08/28/2023 14:49 EST) TSH 2.84 0.47 - 4.68 mIU/L 08/29/2023 14:49 EST [facility] Blood VENOUS BLOOD / Unknown Venipuncture / Unknown 08/28/2023 14:49 EST 08/29/2023 12:02 EST Narrative [facility] - 08/29/2023 14:49 EST The results of this assay can be falsely lowered due to the consumption of Biotin. Shauna Kramer MD CHEMISTRY & BLOOD GA S ORDERABLES Performing Organization Address City/[facility]/ZIP Co de Phone Number [facility] [address] [place] [address] * (ABNORMAL) FERRITIN (08/28/2023 14:49 EST) Ferritin 9(L) 11 - 264 ng/mL 08/29/2023 14:53 EST [facility] Blood VENOUS BLOOD / Unknown Venipuncture / Unknown 08/28/2023 14:49 EST 08/29/2023 12:02 EST Narrative [facility] - 08/29/2023 14:53 EST The results of this assay can be falsely lowered due to the consumption of Biotin. Shauna Kramer MD CHEMISTRY & BLOOD GA S ORDERABLES [facility] [address] [place] [address] documented in this encounter Visit Diagnoses Diagnosis Obstructive sleep apnea (adult) (pediatric) Restless leg syndrome Restless legs syndrome (RLS) Hypomagnesemia Disorders of magnesium metabolism Vitamin D deficiency, unspecified Other fatigue documented in this encounter Additional Health Concerns Infection Onset Date Last Indicated Resolved Time R/O COVID-19 11/06/2023 11/06/2023 11/06/2023 18:3 2 EST documented as of this encounter Care Teams Radiation Therapist Relationship Specialty Start Date End Date Trisha Jacobson APRN [address] [place] [address] PCP - General 08/28/21 11/13/[address] [place] [address] PCP - General Family Medicine - Primary Care 11/14/23 Whitley Sage MBBS [address] [facility], [address] [place] [address] Consulting Clinician Pulmonary Disease 05/01/22 documented as of this encounter
--- OUTSIDE RECORDS SUMMARY | 2024-07-15 21:47 | XMS_ITS | Encounter Summary ---
Author Organization [facility] Address [address] [place] [address] Care Team Providers Care Carpenter Packing Name Role Phone Trisha Jacobson APRN Primary Care Provider + Whitley Sage MBSUSHIL Unavailable Encounter Details Date Type Department Care Team (Latest Contact Info) Description 12/21/2022 Transcribe Orders [facility] Lab - Main [place] [address] [place] [address] Trisha Jacobson APRN [address] [place] [phone] Palpitations (Primary Dx); Cough, unspecified type; Chest pressure Social History [...] as of this encounter Results * (ABNORMAL) COMPREHENSIVE METABOLIC PANEL (CMP) (12/27/2022 15:35 EDT) Sodium 139 136 - 145 mmol/L 12/27/2022 16:01 [facility] Potassium 4.0 3.5 - 5.0 mmol/L 12/27/2022 16:01 [facility] Chloride 104 96 - 110 mmol/L 12/27/2022 16:01 [facility] CO2 Total 25 22 - 32 mmol/L 12/27/2022 16:01 [facility] Glucose 96 70 - 100 mg/dL 12/27/2022 16:01 [facility] BUN 14 10 - 26 mg/dL 12/27/2022 16:01 [facility] Creatinine 0.80 0.52 - 1.04 mg/dL 12/27/2022 16:01 [facility] eGFR 97 >60 mL/min/1.7 3m2 12/27/2022 16:01 [facility] Total Protein 7.4 6.3 - 8.2 g/dL 12/27/2022 16:01 [facility] Albumin 4.3 3.4 - 4.9 g/dL 12/27/2022 16:01 [facility] Alkaline Phosphatase 81 38 - 126 U/L 12/27/2022 16:01 [facility] AST 31 15 - 46 U/L 12/27/2022 16:01 [facility] ALT 40(H) <35 U/L 12/27/2022 16:01 [facility] Bilirubin, Total 0.5 <1.4 mg/dL 12/28/19 16:01 [facility] Calcium 9.6 8.5 - 10.5 mg/dL 12/27/2022 16:01 [facility] Albumin/Globulin Ratio 1.4 1.0 - 2.5 12/27/2022 16:01 [facility] Anion Gap 10 5 - 14 12/27/2022 16:01 [facility] Blood VENOUS BLOOD / Unknown Venipuncture / Unknown 12/27/2022 15:35 EDT 12/27/2022 15:38 EDT Trisha Jacobson ELECTRONICS COMPUTER MECHANIC CHEMISTRY & BLOO D GAS ORDERABLES Performing Organization Address City/State/[facility] Co de Phone Number [facility] [address] [place] [address] * (ABNORMAL) COMPLETE BLOOD COUNT AND DIFFERENTIAL (12/27/2022 15:35 EDT) WBC 9.40 4.00 - 12.40 K/cmm 12/27/2022 15:41 [facility] RBC 4.70 3.86 - 5.04 M/cmm 12/27/2022 15:41 [facility] Hemoglobin 13.6 11.6 - 15.2 gm/dL 12/27/2022 15:41 [facility] HCT 41.1 34.9 - 44.4 % 12/27/2022 15:41 [facility] MCV 87 81 - 98 fl 12/27/2022 15:41 [facility] MCH 28.9 26.7 - 33.3 pg 12/27/2022 15:41 [facility] MCHC 33.1 32.1 - 35.9 gm/dL 12/27/2022 15:41 [facility] RDW-CV 12.6 <14.7 % 12/27/2022 15:41 [facility] RDW-SD 40.3 <50.4 fl 12/27/2022 15:41 [facility] PLT 268 141 - 377 K/cmm 12/27/2022 15:41 [facility] MPV 9.4(L) 9.5 - 12.7 fl 12/27/2022 15:41 [facility] % Neutrophils 50.8 % 12/27/2022 15:41 [facility] % Lymphocytes 42.9 % 12/27/2022 15:41 [facility] % Monocytes 4.6 % 12/27/2022 15:41 [facility] % Eosinophils 1.0 % 12/27/2022 15:41 [facility] % Basophils 0.4 % 12/27/2022 15:41 [facility] % Immature Grans 0.3 % 12/28/19 15:41 [facility] Absolute Neutrophils 4.78 2.20 - 8.85 K/cmm 12/27/2022 15:41 [facility] Absolute Lymphocytes 4.03(H) 1.09 - 3.30 K/cmm 12/27/2022 15:41 [facility] Absolute Monocytes 0.43 0.10 - 0.80 K/cmm 12/27/2022 15:41 [facility] Absolute Eosinophils 0.09 0.03 - 0.61 K/cmm 12/27/2022 15:41 [facility] ABS Basophils 0.04 0.01 - 0.11 K/cmm 12/27/2022 15:41 [facility] Absolute Immature Grans 0.03 0.00 - 0.06 K/cmm 12/27/2022 15:41 [facility] Type of Differential: Auto 12/27/2022 15:41 [facility] Blood VENOUS BLOOD / Unknown Venipuncture / Unknown 12/27/2022 15:35 EDT 12/27/2022 15:38 EDT Trisha Jacobson ELECTRONICS COMPUTER MECHANIC PACKAGES & DNA P ROBE ORDERABLES Performing Organization Address City/[facility]/ZIP Co de Phone Number [facility] [address] [place] [address] * THYROID CASCADE (12/27/2022 15:35 EDT) TSH 2.67 0.47 - 4.68 mIU/L 12/27/2022 16:36 EDT [facility] Blood VENOUS BLOOD / Unknown Venipuncture / Unknown 12/27/2022 15:35 EDT 12/27/2022 15:38 EDT Narrative [facility] - 12/27/2022 16:36 EDT NOTE: The results of this assay can be falsely lowered due to the consumption of Biotin. Trisha Jacobson ELECTRONICS COMPUTER MECHANIC CHEMISTRY & BLOO D GAS ORDERABLES Performing Organization Address City/[facility]/ZIP Co de Phone Number [facility] [address] [place] [address] documented in this encounter Visit Diagnoses Diagnosis Palpitations- Primary Cough, unspecified type Chest pressure Other chest pain documented in this encounter Care Teams Carpenter Packing Relationship Specialty Start Date End Date Trisha Jacobson APRN [address] [place] [phone] PCP - General 08/28/21 11/13/23 Whitley Sage MBBS [address] [place] [address], [address] [place] [phone] Consulting Clinician Pulmonary Disease 05/01/22 documented as of this encounter
--- OUTSIDE RECORDS SUMMARY | 2024-07-15 21:47 | XMS_ITS | Encounter Summary ---
Author Organization [facility] Address [address] [place] [address] Care Team Providers Care Clinical Interviewer Name Role Phone Trisha Jacobson Hoa PANDYA Primary Care Provider + Whitley Sage MBSUSHIL Unavailable Reason for Visit * Reason Comments Cough Patient reports one month of cough and congestion Encounter Details Date Type Department Care Team ([facility] st Contact Info) Description 11/06/2023 13:00 EST Walk-In [facility] [address] [phone] Quiana Ulloa PA-C [address] [place] [address] [address] [place], [place] [phone] Upper respiratory tract infection, unspecified type (Primary Dx) Social History Tobacco Use [...] Sign Reading Time Taken Comments Blood Pressure 126/70 11/06/2023 1304 EST Pulse 105 11/06/2023 1304 EST Temperature 36.8 ??C (98.3 ??F) 11/06/2023 1304 EST Respiratory Rate 20 11/06/2023 1304 EST Oxygen Saturation 98% 11/06/2023 1304 EST Inhaled Oxygen Concentration - - Weight [...] this encounter Patient Instructions * Patient Instructions* Quiana Ulloa PA-C - 11/06/2023 13:00 EST Use your albuterol inhaler with spacer as needed every 4-6 hours as needed for any wheezing. Use the tessalon perles before bed to help you not cough so much at night. I have tested you for covid, flu, rsv and will notify you if anything is positive. You can see these results on your [employer] portal. Increase your fluids, warm tea with honey, humidifier by the bedside, Tylenol and/or ibuprofen as needed (never take ibuprofen type medications on an empty stomach), restart your flonase, throat lozenges, and rest. Continue with your advair as directed. If not improving with the above recommendations over the next 1-2 weeks then have further evaluation, sooner if worsening or you develop fever. Emergency department if having increased work of your breathing that is not resolving with your rescue inhaler. documented in this encounter Ordered Prescriptions Prescription Sig Dispensed Refills Start Date End Da te benzonatate (TESSALON) 200 mg capsuleIndications:Upper respiratory tract infection, unspecified type Take 1 Capsule by mouth at bedtime as needed for Cough. 20 Capsule 11/06/2023 documented in this encounter Progress Notes * Celestino Garcia RN - 11/06/2023 1300 EST CC/HPI: Patient reports one month of cough and congestion Covid Screening: In the last 72 hours, has the patient had: New or unusual cough, shortness of breath, new nasal congestion, sore throat, fever, chills, body aches, or new loss of taste or smell: Yes In the past 10 days, has the patient had a positive Covid test OR a confirmed close Covid exposure (<6ft for > 15mins in 24hr period)? (if yes, assign to [facility], regardless of vaccination status)-No PCP: Trisha GARCIA RN 11/06/2023 12:52 * Quiana Ulloa PA-C - 11/06/[address] [facility] Chief Complaint(s): Cough (Patient reports one month of cough and congestion) Assessment & Plan: Cecilia was seen today for cough. Diagnoses and all orders for this visit: Upper respiratory tract infection, unspecified type - INFLUENZA A AND B,RSV PCR - COVID-19 TESTING - benzonatate (TESSALON) 200 mg capsule; Take 1 Capsule by mouth at bedtime as needed for Cough. Cecilia Connelly is a 38 y.o. female with significant history of asthma, prolonged QT, hypertension, hypomagnesemia, hypokalemia, iron deficiency anemia, pre-DM, GERD, MEY, obesity who presents for evaluation of cough. Patient reports waxing and waning cough for the past month after changing her heating system and then worsening of her cough and new onset of sore throat, nasal congestion, nausea andheadache which started after exposure to her sick children with this onset being 11/02/2023. Patienthas been wheezing but has been forgetting to use her rescue inhaler. Patient is generally well appearing, afebrile, non toxic, well hydrated, stable on exam, mild expiratory wheezing in upper lung bueno, O2 sat 98% room air Offered neb treatment here in clinic but pt declines. COVID, flu, RSV testing was performed today and would consider paxlovid if covid positive but wouldneed to check drug interactions prior to prescribing. Creatinine was 0.80 . Pt has not been utilizing her rescue inhaler. Advised on trial of her albuterol inhaler with spaceras needed, flonase, tessalon perles before bed, Symptomatic management with humidifier, warm tea honey, Tylenol alternating with ibuprofen as needed, throat lozenges and rest. Reviewed need for further evaluation if the symptoms or not improving or if they are worsening would need sooner evaluation especially if fever or worsening of coughing. Would consider chest x-ray at that point. ED precautions provided for increased work of breathing that is not relieved with her rescue inhaler. An appropriate medical screening examination was performed. The patient was assessed prior to discharge and deemed stable for discharge home. I printed material and reviewed home management and follow up in detail with patient, see patient instructions below. Patient is advised in use of [employer] to access any lab results or other pertinentvisit information. All questions are answered. Patient is advised to follow up for urgent reassessment for any new/worsening signs and symptoms, otherwise, follow up with PCP or at [facility] for symptoms that persist past current course of treatment or expected resolution as discussed. Patient verbalizes understanding and agreement with this plan of care. HPI: Cecilia Connelly is a 38 y.o. female who is here with complaint of 1 month cough that does have white sputum production, this was waxing and waning then was exposed to cold from kids and now has had increased cough, sore throat, nasal congestion, nausea, headache and increased fatigue since 11.02.2023.feels run down. Has been wheezing. Has been forgetting to use albuterol inhaler but states she has this on hand at home. Does use Advair twice daily. Has not been using flonase recently. Has not done any covid testing for recent sick contacts or herself. Denies history of covid in past 90 days. Denies need for work note. Has been covid vaccinated. Patient denies: fever, chills, vomiting, diarrhea, weakness, lightheadedness, chest pain, orthopnea Social History Tobacco Use Smoking Status Former Current packs/day: 0.00 Average packs/day: 1 pack/day for 10.0 years (10.0 ttl pk-yrs) Types: Cigarettes Start date: 2003 Quit date: 2013 Years since quittin.1 Smokeless Tobacco Never Tobacco Comments edible marijuana in the evening = I have reviewed current problem list, current medications and allergies. ROS: ROS See HPI for details Objective: Vitals and nursing notes reviewed Examination: BP 126/70 (BP Cuff Location: Left arm, BP Patient Position: Sitting, BP Cuff Sizes: Adult, regular)Comment (BP Cuff Sizes): Left forearm Pulse 105 Temp 36.8 ??C (98.3 ??F) (Oral) Resp 20 SpO2 98% Physical Exam This note may be in part documented using [employer] dictation software. Please forgive any errors, omissions or typos that may result from use of dictation. documented in this encounter Miscellaneous Notes * Result Encounter Note - Rolanda Connelly PA-C - 11/06/2023 1300 EST Negative results documented in this encounter Plan of Treatment Not on file documented as of this encounter Procedures Procedure Name Priority Date/Time Associated Diagnosis Comments ZZCOVID-19 [facility] (TESTING ONLY) Today 11/06/2023 15:04 EST Upper respiratory tract infection, unspecified type COVID-19 TESTING Routine 11/06/2023 15:0 4 EST Upper respiratory tract infection, unspecified type ZZHN INFLUENZA A AND B, RSV PCR Routine 11/06/2023 15:04 EST Upper respiratory tract infection, unspecified type documented in this encounter Results * COVID-19 CV (TESTING ONLY) (11/06/2023 15:04 EST) Swab NASOPHARYNGEAL STRUCTURE / Unknown Swab / Unknown 11/06/2023 15:04 EST 11/06/2023 15:04 EST Quiana Ulloa PA-C MICROBIOLOGY - GENERAL ORDERABLES [facility] [address] [place] [address] * COVID-19 TESTING (11/06/2023 15:04 EST) COVID-19 rt-PCR Result Negative Negative 11/06/2023 18:32 EST [facility] Performing Lab Cepheid GeneXpert [facility] 11/06/2023 18:32 EST [facility] Swab NASOPHARYNGEAL STRUCTURE / Unknown Swab / Unknown 11/06/2023 15:04 EST 11/06/2023 15:04 EST Quiana Ulloa PA-C MICROBIOLOGY - GENERAL ORDERABLES [facility] [address] [place] [address] * INFLUENZA A AND B,RSV PCR (11/06/2023 15:04 EST) FLU A RNA Result (FLARES) Negative Negative 11/06/2023 18:32 [facility] FLU B RNA Result (FLBRES) Negative Negative 11/06/2023 18:32 [facility] RSV RNA Result (RSVRES) Negative Negative 11/06/2023 18:32 [facility] Swab NASOPHARYNGEAL STRUCTURE / Unknown Swab / Unknown 11/06/2023 15:04 EST 11/06/2023 15:04 EST Quiana Ulloa PA-C MICROBIOLOGY - GENERAL ORDERABLES [facility] [address] [place] [address] documented in this encounter Visit Diagnoses Diagnosis Upper respiratory tract infection, unspecified type- Primary documented in this encounter Historical Medications * This list may reflect changes made after this encounter. Medication Sig Dispensed Refills Start Date End Date ondansetron (ZOFRAN-ODT) 4 mg disintegrating tablet DISSOLVE ONE TABLET ON THE TONGUE EVERY 8 HOURS NEEDED FOR NAUSEA AND VOMITING hydrOXYzine (ATARAX) 50 mg tablet Take 1 Tablet by mouth at bedtime. 10/25/2023 ferrous sulfate 325 mg (65 mg iron) tablet Take 1 Tablet by mouth. 07/24/2022 04/28/2024 added in this encounter Additional Health Concerns Infection Onset Date Last Indicated Resolved Time R/O COVID-19 11/06/2023 11/06/2023 11/06/2023 18:3 2 EST documented as of this encounter Care Teams Clinical Interviewer Relationship Specialty Start Date End Date Trisha Jacobson APRN [address] [place] [address] PCP - General 08/28/21 11/13/23 Whitley Sage MBBS [address] [place] [address], [address] [place] [address] Consulting Clinician Pulmonary Disease 05/01/22 documented as of this encounter
--- OUTSIDE RECORDS SUMMARY | 2024-07-15 21:47 | XMS_ITS | Encounter Summary ---
Author Organization [facility] Address [address] [place] [address] Care Team Providers Care Environmental Maintenance Worker Name Role Phone Trisha Jacobson Hoa PANDYA Primary Care Provider + Whitley Sage Unavailable Reason for Referral * Test (Routine/Next Available) - Authorization Not Required Specialty Diagnoses / Procedures Referred By [facility] Referred To Contact Diagnoses Asthma in adult, moderate persistent, uncomplicated Procedures PULMONARY FUNCTION TESTING Whitley Sage MBBS [address] [phone] Referral ID Status Reason Start Date Expiration Date Visits Requested Visits Authorized [id number] Authorization Not Required 2 1 1 Reason for Visit * Reason Onset Date Comments COVID-19 07/04/2022 Encounter Details Date Type Department Care Team ([facility] Contact Info) Description 07/04/[address] [facility] Pulmonology [address] [facility], [place] [address] Whitley Sage MBBS [address] [phone] COVID-19 Social History Tobacco Use Types Packs/Day Years [...] uncomplicated Take 2 Tablets by mouth daily. 10 Tablet 07/04/2022 07/17/2022 documented in this encounter Miscellaneous Notes * Telephone Encounter - Maryjo Frazier RN - 07/05/2022 0849 EDT Pt notified. She is feeling a little better today with the prednisone. She will call with any worsening symptoms. * Telephone Encounter - Kerry Sosa RN - 07/04/2022 1525 EDT Called pt and informed her that she needs PFT at [facility] done and she needs to have cbc done prior tostarting prednisone. She reports that she was told that she is not allowed to go to [facility] lab due toher positive covid test. Pt reported that she was supposed to get some labs done prior to taking paxlovid (rx by stone decorator provider). * Telephone Encounter - Kerry Sosa RN - 07/04/2022 1505 EDT Called pt, she reports she has some SOB (she was able to speak in complete sentences while on the phone with no audible wheezing or gasping), cough that is occasionally productive with white or yellow sputum; denies fever. She reports she called her pcp and spoke with the stone decorator provider on Monday 07/02 however, I don'tsee any documentation. Pt reports she has taken prednisone in the past and usually takes it with an asthma flare. She est care with [facility] pulmonology 05/05/22. Forwarded to provider to advise. * Telephone Encounter - Luanne Early - 07/04/2022 1324 EDT Tested positive for covid on 07/02. She is asking for a script for prednisone. She reports her O2 is 94. Pete Gipson documented in this encounter Plan of Treatment Scheduled Orders Name Type Priority Associated Diagnoses Orde r Schedule PULMONARY FUNCTION TESTING PFT Routine Asthma in adult, moderate persistent, uncomplicated 1 Occurrences starting 07/04/2022 until 01/03/2024 documented as of this encounter Visit Diagnoses Diagnosis Asthma in adult, moderate persistent, uncomplicated- Primary documented in this encounter Care Teams Environmental Maintenance Worker Relationship Specialty Start Date End Date Trisha Jacobson APRN [address] [place] [phone] PCP - General 08/28/21 11/13/23 Whitley Sage MBBS [address] [place] [address], [address] [place] [phone] Consulting Clinician Pulmonary Disease 05/01/22 documented as of this encounter
--- OUTSIDE RECORDS SUMMARY | 2024-07-15 21:47 | XMS_ITS | Encounter Summary ---
Author Organization [facility] Address [address] [place] [address] Care Team Providers Care Product Development Assistant Name Role Phone Trisha Jacobson Hoa PANDYA Primary Care Provider + Whitley Sage MBSUSHIL Unavailable Encounter Details Date Type Department Care Team ([facility] Contact Info) Description 01/09/2023 Orders Only [facility] End[facility] [address] [place], [place] [phone] Kevin Cleveland MD [facility] [address] [place] [address] Social History Tobacco Use Types [...] Dispensed Refills Start Date End Da te famotidine (PEPCID) 40 mg tablet Take 1 Tablet by mouth at bedtime. 90 Tablet 01/09/2023 documented in this encounter Plan of Treatment Not on file documented as of this encounter Visit Diagnoses Not on filedocumented in this encounter Care Teams Product Development Assistant Relationship Specialty Start Date End Date Trisha Jacobson APRN [address] [place] [phone] PCP - General 08/28/21 11/13/23 Whitley Sage MBBS [address] [place] [address], [address] [place] [address] Consulting Clinician Pulmonary Disease 05/01/22 documented as of this encounter
--- OUTSIDE RECORDS SUMMARY | 2024-07-15 21:47 | XMS_ITS | Encounter Summary ---
Author Organization [facility] Address [address] [place] [address] Care Team Providers Care Psychological Assistant Name Role Phone JacobsonDanyel banerjeebraden Camara APRN Primary Care Provider + Whitley Sage MBBS Unavailable Reason for Referral * Radiology Services (Routine/Next Available) - Authorization Not Required Specialty Diagnoses / Procedures Referred By Nakia anderson Referred To Contact Nuclear Medicine Diagnoses Early satiety Procedures NM GASTRIC EMPTYING SOLID Kevin Cleveland MD [address] [place] [address] [facility] Referral ID Status Reason Start Date Expiration Date Visits Requested Visits Authorized [id number] Authorization Not Required 2 1 1 Encounter Details Date Type Department Care Team (Latest Contact Info) Description 09/06/2022 Documentation Visit [facility] Endoscopy [address] [place] [address] Kevin Cleveland MD [address] [place] [address] Early satiety (Primary Dx) Social History Tobacco Use Types Packs/Day Years Used Date Smoking Tobacco: Former Cigarettes 1 - 2013 Smokeless Tobacco: Never Comments:edible marijuana [...] as of this encounter Progress Notes * Kevin Cleveland MD - 09/06/2022 1640 EST [facility] Note The Gastroenterology service was consulted to see Cecilia Connelly for GERD and diarrhea Requesting Physician: Trisha Jacobson HPI: 37 y.o.female with a history of HTN, asthma, long QT, MEY, and PTSD referred for GERD. She describes her GERD symptoms as sulfur burps, vomiting, feeling like food is sitting in the epigastrium, regurgitation, bloating. She seldom regurgitates gastric contents when leaning forward. She does get some substernal burning. Pantoprazole 40mg BID has not helped any of these symptoms significantly (though maybe substernal burning is a bit better). She previously used omeprazole and ranitidine without much relief. She does report some dysphagia with solids and some odynophagia with liquids. Symptoms have been present for as long as she can remember. Patient also reports diarrhea. This used to happen a few times a year in clusters and would last a week at a time. Since January, diarrhea has been persistent. She has one watery stool a day, but can have up to 4 watery stools with a great deal of urgency and urge incontinence depending on what she eats (eggs and dairy are most problematic). She takes pepto bismal and it seems to help. She sometimes sees blood in the stool which is attributed to a hemorrhoid. No colorectal or esophagogastric cancerin family. She reports negative thyroid testing in the past. She does have regular nocturnal bowel movements. ROS: Full review of systems was negative except as detailed above. Past Medical History: Diagnosis Date ??? Asthma ??? Hypertension Past Surgical History: Procedure Laterality Date ??? TONSILLECTOMY ??? TYMPANOSTOMY TUBE PLACEMENT C-Sections MEDICATION LIST: Current Outpatient Medications Medication ??? acetaminophen (TYLENOL) 650 mg CR tablet ??? acetylcysteine (NAC) 600 mg capsule ??? ADVAIR HFA 230-21 mcg/actuation inhaler ??? albuterol (ACCUNEB) 2.5 mg /3 mL (0.083 %) nebulizer solution ??? albuterol 90 mcg/actuation inhaler ??? ALLERGARD GLOVES MISC ??? aminocaproic acid (AMICAR) 500 mg tablet ??? ascorbic acid, vitamin C, (VITAMIN C) 500 mg tablet ??? blue-green algae (SPIRULINA MISC) ??? buPROPion (WELLBUTRIN XL) 150 mg XL tablet ??? Cholecalciferol, Vitamin D3, 50 mcg capsule ??? DM/p-ephed/acetaminoph/doxylam (NYQUIL ORAL) ??? DM/pseudoephed/acetaminophen (VICKS DAYQUIL ORAL) ??? fexofenadine (PRAVIN) 180 mg tablet ??? fluticasone propionate (FLONASE) 50 mcg/actuation nasal spray ??? glucosam/artur-msm1/C/osbaldo/bosw (OSTEO BI-FLEX TRIPLE STRENGTH ORAL) ??? glucosamine/chondr anguiano A sod (OSTEO BI-FLEX ORAL) ??? ketotifen (ALAWAY) 0.025 % (0.035 %) ophthalmic solution ??? [...] (ATIVAN) 1 mg tablet ??? Magnesium Gluconate (MAG-G) 27 mg magnesium (500 mg) tablet ??? magnesium oxide (MAG-OX) 400 mg (241.3 mg magnesium) tablet ??? melatonin 5 mg tablet,disintegrating ??? moxifloxacin (VIGAMOX) 0.5 % ophthalmic solution ??? Multivitamins with Minerals tablet tablet ??? naproxen (NAPROSYN) 500 mg tablet ??? oxygen-air delivery systems (HORIZON NASAL CPAP SYSTEM MISC) ??? predniSONE (DELTASONE) 10 mg tablet ??? sertraline (ZOLOFT) 100 mg tablet ??? tiotropium (SPIRIVA) 18 mcg inhalation capsule ??? UNABLE TO FIND ??? VITAMINS B COMPLEX tablet ??? VYVANSE 30 mg capsule No current facility-administered medications for this visit. Allergies Allergen Reactions ??? Azithromycin Patient states that this is not an allergy anymore and needs to be removed Social History Tobacco Use ??? Smoking status: Former Packs/day: 1.00 Years: 10.00 Pack years: 10.00 Types: Cigarettes Start date: 2003 Quit date: 2013 Years since quittin.9 ??? Smokeless tobacco: Never ??? Tobacco comments: edible marijuana in the evening Vaping Use ??? Vaping Use: Never used Substance Use Topics ??? Alcohol use: Not Currently ??? Drug use: Yes Comment: edibles Family History Problem Relation Age of Onset ??? Allergic Rhinitis Mother ??? Cancer Mother ??? Hearing Loss Maternal Grandmother ??? Cancer Maternal Grandfather ??? Heart Disease Maternal Grandfather PE: Vitals: 387lb, 137/88, 110bpm Gen: NAD. AAOx3 Skin: Warm. Dry. No rashes or lesions HEENT: Anicteric Sclera Neuro: Spontaneously moving bilateral upper and lower extremities without focal deficits Laboratory/Imaging/Procedures: TBili 0.3, AST 33, ALT 32, ALk Phos 77, albumin 4.3 WBC 8.97, Hb 12.5, PLT 300k Giardia and Crypto negative Impression: 37 y.o. female with a history of HTN, asthma, long QT, MEY, and PTSD referred for GERD and diarrhea. She has both typical and atypical GERD symptoms. It is very likely she has true GERD given her weight, but I do suspect that many of these upper GI symptoms may be functional as maximal dose PPI hasnot provided relief. We reviewed the role of pH probe testing to confirm significant esophageal acid exposure and the role of reflux surgery which would likely be bariatric surgery. Her diarrhea is likely functional, but her nocturnal symptoms and intermittent blood in stool warrants a colonoscopy to exclude inflammatory causes of diarrhea. We reviewed what each procedure entails and the risk of perforation and bleeding. Patient was agreeable with proceeding. Recommendations: -NM gastric emptying -EGD with anesthesia and 48 hour ambulatory pH probe (hold PPI and H2-blockers for a week before procedure) -Can biopsy for EoE, celiac, and H. Pylori at time of EGD -Colonoscopy with anesthesia with random colon biopsies -Continue pantoprazole 40mg BID for now -Will arrange follow up sometime after procedures are performed The total time I spent on this new patient visit on 09/06/22 was 45 minutes. Kevin Cleveland MD documented in this encounter Plan of Treatment Not on file documented as of this encounter Results * NM GASTRIC EMPTYING [...] IMPRESSION Normal gastric emptying. Kevin Cleveland MD IMG NM ORDERABLES documented in this encounter Visit Diagnoses Diagnosis Early satiety- Primary Early satiety documented in this encounter Care Teams Psychological Assistant Relationship Specialty Start Date End Date Trisha Jacobson APRN [address] [place] [phone] PCP - General 08/28/21 11/13/23 Whitley Sage MBBS [address] [place] [address], [address] [place] [address] Consulting Clinician Pulmonary Disease 05/01/22 documented as of this encounter
--- OUTSIDE RECORDS SUMMARY | 2024-07-15 21:47 | XMS_ITS | Encounter Summary ---
Author Organization [facility] Address [address] [place] [address] Care Team Providers Care Etiquette Coach Name Role Phone JacobsonTrisha banerjee Hoa PANDYA Primary Care Provider + Whitley Sage MBBS Unavailable Encounter Details Date Type Department Care Team (Latest Contact Info) Description 2023 Travel Social History Tobacco Use Types Packs/Day [...] on filedocumented in this encounter Care Teams Etiquette Coach Relationship Specialty Start Date End Date Trisha Jacobson APRN [address] [place] [phone] PCP - General 08/28/21 11/13/23 Whitley Sage MBBS [address] [place] [address], [address] [place] [address] Consulting Clinician Pulmonary Disease 05/01/22 documented as of this encounter
--- OUTSIDE RECORDS SUMMARY | 2024-07-15 21:47 | XMS_ITS | Encounter Summary ---
Author Organization [facility] Address [address] [place] [address] Care Team Providers Care Flag Decorator Name Role Phone Whitley Sage J CARLOS Unavailable SeamusDiane Primary Care Provider [phone] Reason for Visit * Reason Comments Altered Mental Status Per medics pt was found altered while working at [employer]. Chest pressure, nausea, lightheaded and dizzy starting this am. Pt appears uncomfortable and is a challenging historian. Encounter Details Date Type Department Care Team (Late st Contact Info) Description 11/14/2023 13:16 EST - 11/14/2023 16:16 EST Emergency [facility] Emergency Department [address] [place] [id number] Anish Newsome MD [address] [place] [address] Stacey Abraham MD [address] [facility], Level [address] [place] [address] Weakness generalized (Primary Dx) Discharge Disposition: Home or Self Care Social History Tobacco Use Types Packs/Day Years Used Date Smoking Tobacco: Former Cigarettes 1 10 2 004 - 2013 Smokeless Tobacco: Never Comments:edible marijuana [...] Blood Pressure 147/96 11/14/2023 1611 EST Pulse - - Temperature 36.4 ??C (97.5 ??F) 11/14/2023 1324 EST Respiratory Rate 18 11/14/2023 1611 EST Oxygen Saturation 98% 11/14/2023 1611 EST Inhaled Oxygen Concentration - - Weight 158.8 kg (350 lb) 11/14/2023 1324 EST Height - - Body Mass Index 60.08 01/04/2023 0843 EDT documented in this encounter [...] Yes 05/05/2022 documented as of this encounter Discharge Instructions * Discharge Instructions* Anish Newsome MD - 11/14/2023 15:30 EST You were seen in the emergency department for fatigue, weakness, chest pressure and headache. Your test results including EKG, labs and CT scan of the brain did not show any concerning findings. It is important to follow-up with your primary care provider if your symptoms do not continue improving. Return to the ED for any worsening symptoms. documented in this encounter Medications at Time [...] as directed every 4 hours as needed. amitriptyline (ELAVIL) 10 mg tablet Take 1 Tablet by mouth at bedtime. 90 Tablet 02/01/2023 benzonatate (TESSALON) 200 mg capsuleIndications:Upp er respiratory tract infection, unspecified type Take 1 Capsule by mouth at bedtime as needed for Cough. 20 Capsule 11/06/2023 Cholecalciferol, Vitamin D3, 50 mcg capsule TAKE 2 CAPSULES BY MOUTH ONCE DAILY 01/10/2022 famotidine (PEPCID) 40 mg tablet Take 1 Tablet by mouth at bedtime. 90 Tablet 01/09/2023 fexofenadine (PRAVIN) 180 mg tablet Take 1 Tablet by mouth daily. fluticasone propionate (FLONASE) 50 mcg/actuation nasal spray Instill 2 Sprays into both nostrils 2 times daily. hydrOXYzine (ATARAX) 50 mg tablet Take 1 Tablet by mouth at bedtime. 10/25/2023 ketotifen (ZADITOR) 0.025 % (0.035 %) ophthalmic [...] 2 Capsules by mouth 2 times daily. ondansetron (ZOFRAN-ODT) 4 mg disintegrating tablet DISSOLVE ONE TABLET ON THE TONGUE EVERY 8 HOURS NEEDED FOR NAUSEA AND VOMITING oxygen-air delivery systems (HORIZON NASAL CPAP SYSTEM MISC) by misc (non-drug; combo route) route. traZODone (DESYREL) 100 mg tabletIndications:inso mnia associated with depression Take 1 Tablet by mouth at bedtime. UNABLE TO FIND Med Name: THC edibles VITAMINS B COMPLEX tablet Take 1 Tablet by mouth 2 times daily. 11/15/2021 VYVANSE 30 mg capsule TAKE 1 CAPSULE BY MOUTH IN THE MORNING ALONG WITH 10MG IN THE AFTERNOON 02/03/2022 ferrous sulfate 325 mg (65 mg iron) tablet Take 1 Tablet by mouth. 07/24/2022 04/28/2024 documented as of this encounter Discharge Disposition Disposition Code Departure Means Destination Comment s Home or Self Usp documented in this encounter ED Notes * Roopa Wall RN - 11/14/2023 1329 EST +BEFAST reported to MD Orestes. * Kyra López - 11/14/2023 1325 EST 12 Lead EKG Performed by Kyra López and shown to Dr. Newsome. * Anish Newsome MD - 11/14/2023 1316 EST Emergency Department Visit Medical Decision Making 38 y.o. female with asthma, hypertension, MEY, anxiety, PTSD and GERD who presents to the ED for weakness and headache amongst several other symptoms that started at work today. On exam she appears tired and is speaking very softly. Has no focal neurologic deficits. Broad differential considered including intracranial bleeding or mass lesion, ACS, metabolic disturbance, toxic ingestion, UTI, viral illness, anxiety. Labs obtained-CBC, CMP, troponin, ethanol without clinically significant abnormalities. UA negativefor infection. CT of the brain is without acute findings. On reevaluation the patient feels somewhat improved but continues to complain of chest discomfort. She was given a GI cocktail. She is ambulating steadily to and from the bathroom. Very reassuring workup without evidence of any acute emergent conditions. I stressed the importance of PCP follow-up if she has further episodes or does not completely return to normal. Relevant Data as of 11/15/23 1452 Wed Nov 14, 2023 1531 Pt signed out to me by Dr. Newsome. Pending UA. Workup negative. [ES] 1550 Urine is negative. Will discharge. [ES] Relevant Data User Index [ES] Stacey Abraham MD EKG (independent interpretation): Normal sinus rhythm with rate of 93, normal axis, normal intervals with QTc of 474, no acute ischemic changes Imaging (independent interpretation) of the CT: CT brain without obvious bleeding or mass Medical Decision Making Problems Addressed: Weakness generalized: complicated acute illness or injury Amount and/or Complexity of Data Reviewed Labs: ordered. Radiology: ordered. Risk OTC drugs. Prescription drug management. Final diagnoses: None Disposition: No disposition on file Chief complaint: Weakness, headache HPI Juan A Connelly is a 38 y.o. female with asthma, hypertension, MEY, anxiety, PTSD and GERD who presents to the ED for weakness and headache. Patient states she felt well this morning. Went to work at [employer] where she began to feel very fatigued and weak all over. At 1 point she could not move. She has a mild headache, unable to say if she has had similar headaches in the past. She had dizziness, nausea, chest pressure. Notes that she has severe acid reflux. No specific triggers for these symptoms. Uses marijuana, last used last night by smoking. No recent edibles. History was provided by: Patient Patient's pertinent PMH, FH, SH were reviewed and edited as necessary. Nursing notes reviewed. A medical screening exam was performed. Physical Exam BP (!) 143/76 (BP Cuff Location: Left arm, BP Patient Position: Sitting) Temp 36.4 ??C (97.5 ??F) Resp 15 Wt (!) 158.8 kg (350 lb) SpO2 96% BMI 60.08 kg/m?? Physical Exam Vitals and nursing note reviewed. Constitutional: General: She is not in acute distress. Appearance: Normal appearance. Comments: Appears tired, speaking very softly HENT: Head: Normocephalic and atraumatic. Right Ear: External ear normal. Left Ear: External ear normal. Nose: Nose normal. Mouth/Throat: Mouth: Mucous membranes are moist. Eyes: Extraocular Movements: Extraocular movements intact. Pupils: Pupils are equal, round, and reactive to light. Cardiovascular: Rate and Rhythm: Normal rate and regular rhythm. Heart sounds: Normal heart sounds. Pulmonary: Effort: Pulmonary effort is normal. Breath sounds: Normal breath sounds. Abdominal: Palpations: Abdomen is soft. There is no mass. Tenderness: There is no abdominal tenderness. Musculoskeletal: General: No swelling or deformity. Normal range of motion. Cervical back: Normal range of motion and neck supple. Skin: General: Skin is warm and dry. Neurological: General: No focal deficit present. Mental Status: She is alert and oriented to person, place, and time. Cranial Nerves: Cranial nerves 2-12 are intact. Sensory: Sensation is intact. Motor: Motor function is intact. Procedures Procedures documented in this encounter Plan of Treatment Not on file documented as of this encounter Procedures Procedure Name Priority Date/Time Associated Diagnosis Comments UA WITH REFLEX SEDIMENT (CULTURE IF POS) STAT 11/14/2023 15:32 EST DRUG SCREEN 12, URINE STAT 11/14/2023 15:[address] HEAD WO CONTRAST STAT 11/14/2023 1 4:20 EST ECG REPORT - SCANNED 11/14/2023 13:55 EST HOLD GREEN TOP Routine 11/14/2023 13:55 EST HOLD BLUE TOP Routine 11/14/2023 13:55 EST TROPONIN I STAT Add-on 11/14/2023 13:55 EST COMPLETE BLOOD COUNT AND DIFFERENTIAL STAT 11/14/2023 13:55 EST MAGNESIUM STAT 11/14/2023 13:55 EST ETHANOL, BLOOD STAT 11/14/2023 13:55 EST COMPREHENSIVE METABOLIC PANEL (CMP) STAT 11/14/2023 13:55 EST EKG 12-LEAD STAT 11/14/2023 13:20 EST documented in this encounter Results * (ABNORMAL) DRUG SCREEN 12, URINE (11/14/2023 15:32 EST) Amphetamine Screen, Ur Presumptive Positive, interpret with caution.(A) Negative, Negative Screen 11/14/2023 15:58 [facility] Barbiturates Screen, Ur Negative Negative, Negative Screen 11/14/2023 15:58 [facility] Benzodiazepine Screen, Ur Negative Negative, Negative Screen 11/14/2023 15:58 [facility] Cocaine Metabolites Screen, Ur Negative Negative, Negative Screen 11/14/2023 15:58 [facility] Methamphetamine Screen, Ur Negative Negative, Negative Screen 11/14/2023 15:58 [facility] Methadone Screen, Ur Negative Negative, Negative Screen 11/14/2023 15:58 [facility] Opiates Screen, Ur Negative Negative, Negative Screen 11/14/2023 15:58 [facility] Oxycodone Screen, Ur Negative Negative, Negative Screen 11/14/2023 15:58 [facility] Phencyclidine Screen, Ur Negative Negative Screen, Negative 11/14/2023 15:58 [facility] Cannabinoids Screen, Ur Presumptive Positive, interpret with caution.(A) Negative, Negative Screen 11/14/2023 15:58 [facility] Buprenorphine and Metabolites Screen, Ur Negative Negative, Negative Screen 11/14/2023 15:58 [facility] Tricyclics Screen, Ur Negative Negative Screen, Negative 11/14/2023 15:58 [facility] Urine URINE / Unknown Urine Collect / Unknown 11/14/2023 15:32 EST 11/14/2023 15:41 [facility] - 11/14/2023 15:58 EST Drug Class Cutoff Concentrations: Amphetamines - 500 ng/mL Barbiturates - 200 ng/mL Benzodiazepines - 150 ng/mL Cocaine - 150 ng/mL Methamphetamine - 500 ng/mL Methadone - 200 ng/mL Opiates - 100 ng/mL Oxycodone - 100 ng/mL Phencyclidine (PCP) - 25 ng/mL Tetrahydrocannabinol (THC) - 50 ng/mL Propoxyphene - 300 ng/mL Buprenorphine and Metabolites - 10 ng/mL Tricyclic Antidepressants - 300 ng/mL This is a screening assay only, intended for use in clinical monitoring or management of patients. False positive or false negative results can occur. ??If confirmation testing is needed, please place order as Add-On order in Epic. ??Specimens are retained in the laboratory for 7 days. Anish Newsome MD GEN LAB UNIT COLLECT ORDERABLES [facility] [address] [place] [address] * UA CASCADE TO CULTURE (11/14/2023 15:32 EST) Color UA Yellow Colorless, Yellow 11/14/2023 15:46 [facility] Clarity UA Clear Clear 11/14/2023 15:46 [facility] Glucose UA Negative Negative mg/dL 11/14/2023 15:46 [facility] Bilirubin UA Negative Negative 11/14/2023 15:46 [facility] Ketones UA Negative Negative 11/14/2023 15:46 [facility] Specific [place], Urine <=1.005 1.001 - 1.030 11/14/2023 15:46 [facility] Blood UA Negative Negative 11/14/2023 15:46 [facility] pH, UA 6.5 <8.5 11/14/2023 15:46 [facility] Protein UA Negative Negative mg/dL 11/14/2023 15:46 [facility] Urobilinogen UA 0.2 0.2-1.0 mg/dL mg/dL 11/14/2023 15:46 EST [facility] Nitrite UA Negative Negative 11/14/2023 15:46 EST [facility] Leukocyte Esterase UA Negative Negative 11/14/2023 15:46 EST [facility] Urine URINE SPECIMEN OBTAINED BY CLEAN CATCH PROCEDURE / Unknown Urine Collect / Unknown 11/14/2023 15:32 EST 11/14/2023 15:41 EST Anish Newsome MD URINALYSIS ORDERABLE S [facility] [address] [place] [address] * CT HEAD WO CONTRAST (11/14/2023 14:20 EST) Anatomical Region Laterality Modality Head Computed Tomogra phy 11/14/2023 14:2 7 EST Impressions 11/14/2023 14:27 EST 1. No acute intracranial abnormality is detected. 2. Patchy bilateral mastoid sinus opacification, right greater than left. [id number] Narrative 11/14/2023 14:27 EST EXAM: CT HEAD WO CONTRAST HISTORY: headache, altered mental status, generalized weakness; ?? TECHNIQUE: CT head without contrast. Structured report code: NR.CT01 This CT used either dose modulation and/or iterative reconstruction techniques to lower radiation dose. COMPARISON: 04/09/2021. FINDINGS: PARENCHYMA: No evidence of infarction. No parenchymal hemorrhage. No mass or shift of structures across the midline. EXTRA-AXIAL SPACES: No extra-axial collection. No extra-axial mass. VENTRICULAR SYSTEM: Scattered extra-axial calcifications along the convexities and falx are unchanged. VESSELS: Limited evaluation without IV contrast. Normal density in the dural venous sinuses. BONES: No concerning lesions. No evidence of fracture. ORBITS: No significant abnormality. PARANASAL SINUSES/MASTOID AIR CELLS: There is mild bilateral inferior mastoid sinus opacification, right greater than left. EXTRACRANIAL SOFT TISSUES: Unremarkable. Procedure Note Stanislaw Kenyon MD - 11/14/2023 EXAM: CT HEAD WO CONTRAST HISTORY: headache, altered mental status, generalized weakness; TECHNIQUE: CT head without contrast. Structured report code: NR.CT01 This CT used either dose modulation and/or iterative reconstructiontechniques to lower radiation dose. COMPARISON: 04/09/2021. FINDINGS: PARENCHYMA: No evidence of infarction. No parenchymal hemorrhage. No mass or shift ofstructures across the midline. EXTRA-AXIAL SPACES: No extra-axial collection. No extra-axial mass. VENTRICULAR SYSTEM: Scattered extra-axial calcifications along the convexities and falx areunchanged. VESSELS: Limited evaluation without IV contrast. Normal density in the dural venoussinuses. BONES: No concerning lesions. No evidence of fracture. ORBITS: No significant abnormality. PARANASAL SINUSES/MASTOID AIR CELLS: There is mild bilateral inferior mastoid sinus opacification, rightgreater than left. EXTRACRANIAL SOFT TISSUES: Unremarkable. IMPRESSION 1. No acute intracranial abnormality is detected. 2. Patchy bilateral mastoid sinus opacification, right greater thanleft. [id number] Anish Newsome MD [facility] ORDERABLES * ECG REPORT - SCANNED (11/14/2023 13:55 EST) 11/14/2023 13:5 5 EST Scan 2 System Integration Engineer PROCEDURE/MINOR SHEILA GICAL ORDERABLES * TROPONIN I (11/14/2023 13:55 EST) Troponin I (ng/mL) <0.034 <0.034 ng/mL 11/14/2023 15:18 EST [facility] Blood VENOUS BLOOD / Unknown Venipuncture / Unknown 11/14/2023 13:55 EST 11/14/2023 13:57 EST Narrative [facility] - 11/14/2023 15:18 EST The results of this assay can be falsely lowered due to the consumption of Biotin. Anish Newsome MD CHEMISTRY & BLOOD GA S ORDERABLES [facility] [address] [place] [address] * HOLD GREEN TOP (11/14/2023 13:55 EST) Hold Hold 11/14/2023 15:01 EST [facility] Blood VENOUS BLOOD / Unknown Venipuncture / Unknown 11/14/2023 13:55 EST 11/14/2023 13:57 EST Anish Newsome MD LAB INFO SERVICE AND SUPPORT & PHONE RESULT Performing Organization Address [facility]/ZIP Co de Phone Number [facility] [address] [place] [address] * HOLD BLUE TOP (11/14/2023 13:55 EST) Hold Hold 11/14/2023 15:01 EST [facility] Blood VENOUS BLOOD / Unknown Venipuncture / Unknown 11/14/2023 13:55 EST 11/14/2023 13:57 EST Anish Newsome MD LAB INFO SERVICE AND SUPPORT & PHONE RESULT Performing Organization Address [facility] Co [place] Phone Number [facility] [address] [place] [address] * ETHANOL, BLOOD (11/14/2023 13:55 EST) Pathologist [facility] Ethanol, Blood <10 <10 mg/dL mg/dL 11/14/2023 14:29 EST [facility] Comment:Healthy, non-drinkin g individuals will have an ethanol concentration of <10 mg/dL. Blood VENOUS BLOOD / Unknown Venipuncture / Unknown 11/14/2023 13:55 EST 11/14/2023 13:57 EST Narrative [facility] - 11/14/2023 14:29 EST [place] legal blood alcohol limit = 80 mg/dl (0.08%) Anish Newsome MD CHEMISTRY & BLOOD GA S ORDERABLES Performing Organization Address City/[facility] Co de Phone Number [facility] [address] [place] [address] * MAGNESIUM (11/14/2023 13:55 EST) Pathologist [facility] Magnesium 1.8 1.7 - 2.8 mg/dL 11/14/2023 14:29 [facility] Blood VENOUS BLOOD / Unknown Venipuncture / Unknown 11/14/2023 13:55 EST 11/14/2023 13:57 EST Anish Newsome MD CHEMISTRY & BLOOD GA S ORDERABLES [facility] [address] [place] [address] * COMPREHENSIVE METABOLIC PANEL (CMP) (11/14/2023 13:55 EST) Sodium 137 136 - 145 mmol/L 11/14/2023 14:29 [facility] Potassium 4.3 3.5 - 5.0 mmol/L 11/14/2023 14:29 [facility] Chloride 105 96 - 110 mmol/L 11/14/2023 14:29 [facility] CO2 Total 25 22 - 32 mmol/L 11/14/2023 14:29 [facility] Glucose 98 70 - 99 mg/dl 11/14/2023 14:29 [facility] BUN 14 10 - 26 mg/dL 11/14/2023 14:29 [facility] Creatinine 0.72 0.52 - 1.04 mg/dL 11/14/2023 14:29 [facility] eGFR 110 >60 mL/min/1.7 3m2 11/14/2023 14:29 [facility] Total Protein 8.2 6.3 - 8.2 g/dL 11/14/2023 14:29 [facility] Albumin 4.7 3.4 - 4.9 g/dL 11/14/2023 14:29 [facility] Alkaline Phosphatase 67 38 - 126 U/L 11/14/2023 14:29 [facility] AST 21 15 - 46 U/L 11/14/2023 14:29 [facility] ALT 16 <35 U/L 11/14/2023 14:29 [facility] Bilirubin, Total 0.6 <1.4 mg/dL 11/14/19 14:29 [facility] Calcium 9.8 8.5 - 10.5 mg/dL 11/14/2023 14:29 [facility] Albumin/Globulin Ratio 1.3 1.0 - 2.5 11/14/2023 14:29 [facility] Anion Gap 7 5 - 14 mmol/L 11/14/2023 14:29 [facility] Blood VENOUS BLOOD / Unknown Venipuncture / Unknown 11/14/2023 13:55 EST 11/14/2023 13:57 EST Anish Newsome MD CHEMISTRY & BLOOD GA S ORDERABLES Performing Organization Address City/State/[facility] Co de Phone Number [facility] [address] [place] [address] * (ABNORMAL) COMPLETE BLOOD COUNT AND DIFFERENTIAL (11/14/2023 13:55 EST) WBC 8.01 4.00 - 12.40 K/cmm 11/14/2023 13:59 [facility] RBC 4.46 3.86 - 5.04 M/cmm 11/14/2023 13:59 [facility] Hemoglobin 13.1 11.6 - 15.2 g/dL 11/14/2023 13:59 [facility] HCT 39.5 34.9 - 44.4 % 11/14/2023 13:59 [facility] MCV 89 81 - 98 fL 11/14/2023 13:59 [facility] MCH 29.4 26.7 - 33.3 pg 11/14/2023 13:59 [facility] MCHC 33.2 32.1 - 35.9 g/dL 11/14/2023 13:59 [facility] RDW-CV 12.8 <14.7 % 11/14/2023 13:59 [facility] RDW-SD 41.9 <50.4 fl 11/14/2023 13:59 [facility] PLT 286 141 - 377 K/cmm 11/14/2023 13:59 [facility] MPV 9.3(L) 9.5 - 12.7 fL 11/14/2023 13:59 [facility] % Neutrophils 56.0 % 11/14/2023 13:59 [facility] % Lymphocytes 38.2 % 11/14/2023 13:59 [facility] % Monocytes 4.6 % 11/14/2023 13:59 [facility] % Eosinophils 0.9 % 11/14/2023 13:59 [facility] % Basophils 0.2 % 11/14/2023 13:59 [facility] % Immature Grans 0.1 % 11/14/19 13:59 [facility] Absolute Neutrophils 4.48 2.20 - 8.85 K/cmm 11/14/2023 13:59 [facility] Absolute Lymphocytes 3.06 1.09 - 3.30 K/cmm 11/14/2023 13:59 [facility] Absolute Monocytes 0.37 0.10 - 0.80 K/cmm 11/14/2023 13:59 [facility] Absolute Eosinophils 0.07 0.03 - 0.61 K/cmm 11/14/2023 13:59 [facility] ABS Basophils 0.02 0.01 - 0.11 K/cmm 11/14/2023 13:59 [facility] Absolute Immature Grans 0.01 0.00 - 0.06 K/cmm 11/14/2023 13:59 [facility] Type of Differential: Auto 11/14/2023 13:59 [facility] Blood VENOUS BLOOD / Unknown Venipuncture / Unknown 11/14/2023 13:55 EST 11/14/2023 13:57 EST Anish Newsome MD PACKAGES & DNA PROBE ORDERABLES [facility] [address] [place] [address] * EKG 12-LEAD (11/14/2023 13:20 EST) 11/14/2023 13:2 0 EST Narrative [facility] - 11/14/2023 13:41 EST ? [facility] ? Test Date: ?2023-11-14 Pat Name: ? JUAN A CONNELLY ?Department: ? Room: ? B04 Gender: ? Female ? Yam Curer: ?? BD : ?1985 ? Requested By: AGUSTIN Bucio Order Number: [id number] ? Reading MD: ?? TANA PATTON MD ? Measurements Intervals ?Thompson ? Rate: ? 93 ? P: ?38 DE: ? 130 ?QRS: ?-9 QRSD: ? 88 ? T: ?20 QT: ? 382 ? QTc: ?474 ? Interpretive Statements Normal sinus rhythm Inferior infarct , old Compared to ECG 04/09/2021 13:59:36 Myocardial infarct finding now present I reviewed the tracing and have either agreed or edited the findings in this report. Electronically Signed On 11-14-2023 13:41:41 EST by TANA PATTON MD. Procedure Note Tana Patton MD - 11/14/2023 [facility] Test Date: 2023-11-14 Pat Name: JUAN A CONNELLY Department: Room: 4 Gender: Female Yam Curer: TORI : 1985 Requested By: AGUSTIN Bucio Order Number: [id number] Rafi MD: TANA PATTON MD Measurements Intervals Thompson Rate: 93 P: 38 DE: 130 QRS: -9 QRSD: 88 T: 20 QT: 382 QTc: 474 Interpretive Statements Normal sinus rhythm Inferior infarct , old Compared to ECG 04/09/2021 13:59:36 Myocardial infarct finding now present I reviewed the tracing and have either agreed or edited the findings inthis report. Electronically Signed On 11-14-2023 13:41:41 EST by TANA NEWMAN. Anish Newsome MD CARDIAC ECG ORDERABL ES [facility] documented in this encounter Visit Diagnoses Diagnosis Weakness generalized- Primary Other malaise and fatigue documented in this encounter Administered Medications Inactive Administered Medications - up to 3 most recent administrations Medication Order MAR Action Action Date Dose Rate Site aluminum & magnesium hydroxide-simethicone (MAALOX PLUS) 200-200-20 mg/5 mL suspension 30 mL 30 mL, oral, NOW X1, 1 dose, On Sun11/14/23 at 1515, STAT Given 11/14/2023 15:14 EST 30 mL lidocaine (XYLOCAINE) 2 % viscous solution 10 mL 10 mL, oral, NOW X1, 1 dose, On Sun11/14/23 at 1515, Routine Given 11/14/2023 15:14 EST 10 mL documented in this encounter Active and Recently Administered Medications Times are shown in EST. Scheduled Medication Order 11/12/2023 11/13/2023 11/14/2023 aluminum & magnesium hydroxide-simethicone (MAALOX PLUS) 200-200-20 mg/5 mL suspension 30 mL (COMPLETED) 30 mL, oral, NOW X1, 1 dose, On Sun11/14/23 at 1515, STAT 1514 (Given - Provid er: Cecil Fairchild RN) lidocaine (XYLOCAINE) 2 % viscous solution 10 mL (COMPLETED) 10 mL, oral, NOW X1, 1 dose, On Sun11/14/23 at 1515, Routine 1514 (Given - Provid er: Cecil Fairchild RN) documented in this encounter Care Teams Flag Decorator Relationship Specialty Start Date End Date [address] [place] [id number] PCP - General Family Medicine - Primary Care 11/14/23 Whitley Sage MBBS [address] [place] [address], [address] [place] [address] Consulting Clinician Pulmonary Disease 05/01/22 documented as of this encounter
--- OUTSIDE RECORDS SUMMARY | 2024-07-15 21:47 | XMS_ITS | Encounter Summary ---
Author Organization [facility] Address [address] [place] [address] Care Team Providers Care Stock Mixer Name Role Phone Trisha Jacobson MUMTAZ Primary Care Provider + Whitley Sage MBSUSHIL Unavailable Reason for Visit * Reason Comments Follow-up Encounter Details Date Type Department Care Team ([facility] st Contact Info) Description 2023 15:00 EDT Office Visit [facility] ENT [address] [place] [address] Abiel Hidalgo MD [address] [place] [address] [phone] Wagner Mata, PHD MS/CCC-A Perforation of right tympanic membrane (Primary Dx) Social History Tobacco [...] Progress Notes * Abiel Hidalgo MD - 2023 1500 EDT REASON FOR VISIT: Follow-up right tympanic membrane perforation SUBJECTIVE: Patient is doing well no new problems: No pain or drainage. Patient does not swim with her head underwater. OBJECTIVE: Binocular otomicroscopy was performed this reveals a clean right anterior inferior tympanic membrane perforation. An audiogram was performed which reveals a mild right low-frequency conductive hearing loss and bilateral high-frequency sensorineural hearing loss SRT's of 25 dB in the right and 20 dB in the left. ASSESSMENT: Right tympanic membrane perforation with mild low-frequency conductive hearing loss PLAN: Tympanoplasty was discussed with the patient. She will hold off for now. We will follow-up with repeat audiogram in 2 years or as needed. documented in this encounter Plan of Treatment Not on file documented as of this encounter Visit Diagnoses Diagnosis Perforation of right tympanic membrane- Primary Perforation of tympanic membrane, unspecified documented in this encounter Discontinued Medications Medication Sig Discontinue Reason Start Date End Da te ALLERGARD GLOVES MISC by misc (non-drug; combo route) route. 2023 documented as of this encounter Care Teams Stock Mixer Relationship Specialty Start Date End Date Trsiha Jacobson APRN [address] [place] [address] PCP - General 08/28/21 11/13/23 Whitley Sage MBBS [address] [place] [address], [address] [place] [id number] Consulting Clinician Pulmonary Disease 05/01/22 documented as of this encounter
[2024-07-15 21:48] LABS: HCT 39.1 % (36.0-46.0); HGB 13.4 g/dL (11.2-15.7); MCH 30.5 pg (27.0-33.0); MCHC 34.3 % (32.0-36.0); MCV 89 fL (80-95); MPV 9.7 fL (8.0-11.0); Platelet Count 308 10^3/uL (130-400); RDW 12.7 % (11.7-14.6); RDW-SD 41.6 fL; WBC 11.01 10^3/uL (4.4-10.8)
--- OUTSIDE RECORDS SUMMARY | 2024-07-15 21:48 | XMS_ITS | Encounter Summary ---
Author Organization [facility] Address [address] [place] [address] Care Team Providers Care Consulting Services Manager Name Role Phone Trisha Jacobson MUMTAZ Primary Care Provider + Reason for Visit * Reason Comments Eye Problem Encounter Details Date Type Department Care Team ([facility] st Contact Info) Description 08/28/2021 External Contact [facility] Ophthalmology - [address] [address] Raheem Yates MD [address] [facility], [address] [place] [address] Abrasion of left cornea, initial encounter (Primary Dx); Conjunctival hemorrhage of left eye; Nuclear sclerotic cataract of both eyes; Blunt trauma of left eye, initial encounter Social History Tobacco Use Types Packs/Day [...] you have serious difficulty h earing? No 08/28/2021 documented as of this encounter Ordered Prescriptions Prescription Sig Dispensed Refills Start Date End Da te moxifloxacin (VIGAMOX) 0.5 % ophthalmic solution Place 1 Drop into the left eye 4 times daily. 1 mL 08/28/2021 documented in this encounter Progress Notes * Raheem Yates MD - 08/28/2021 1446 EST Chief Complaint Patient presents with ??? Eye Problem Comments ERV: Pt feel out of bed this am and hit her head to nightstand. Hurt her left eye. C/o so much pain9-10/10. Had some pain meds in ER and now feels like pain is down to 5/10. VA very blurry. C/o light sensitivity. HPI Location: Left eye Pain: 5.0 Quality: Blurry Severity: Severe Duration: Hours Timing: Constant Lasts: Continuous Context: ERV: Pt feel out of bed this am and hit her head to nightstand. Hurt her left eye. C/o so much pain 9-10/10. Had some pain meds in ER and now feels like pain is down to 5/10. VA very blurry.C/o light sensitivity. Modifying factors: Left eye hurt from this am when pt fell and hit her head/eye. Right eye is ok. C/o Headache. Associated Signs & Symptoms: C/o dizzy feeling. No tingling or numbness. Visual Fluctuations: None Attestation: Base Eye Exam Visual Acuity (Snellen - Linear) Right Left Dist cc 20/20 -2 20/30 -2 Correction: Glasses Tonometry (Applanation, 15:01) Right Left Pressure 16 17 Pupils Pupils Dark Shape React APD Right PERRL 4 Round Brisk - Left PERRL 4 Round Brisk - Neuro/Psych Oriented x3: Yes Dilation Both eyes: Tropicamide 1%, Phenylephrine 2.5% @ 15:15 Slit Lamp and Fundus Exam Slit Lamp Exam Right Left Lids/Lashes Normal swelling of lids Conjunctiva/Sclera White and quiet +++ Injection, MANUEL Cornea Clear Double abrasion one above other. Anterior Chamber Deep and quiet Deep Iris Round and reactive Round and reactive Lens Clear Clear Vitreous No VH Fundus Exam Right Left Macula looks good Vessels Normal Periphery Normal No Commotio nio vit heme 4/10 cup to disc both eyes Imaging: Impression: 1. Abrasion of left cornea, initial encounter 2. Conjunctival hemorrhage of left eye 3. Nuclear sclerotic cataract of both eyes 4. Blunt trauma of left eye, initial encounter Plan: Corneal abrasion- left eye Erythromycin used in ER, Tylenol for pain don't exceed recommended dose on bottle Pain down 5/10 right now. No sign Iritis No evidence of Commotio or Vitreous hemorrhage Cecilia Connelly was instructed that she has a nuclear sclerosis cataract, but the cataract is not severe enough to require surgery at this time. Trace of NS Blunt trauma mild left eye with no post seg injury on indirect ....+ subconj heme mild- follow Advised to take Tylenol for pain and lay in dark room Will start Moxifloxacin 4 x a day left eye See me tomorrow I, Dr. Yates, have performed my own HPI and reviewed the tech's ROS. I have also reviewed the patient's past medical, family, social and surgical history, as well as the patient's medications, allergies, and problem list. I am scribing for Dr. Raheem Yates MD while he is personally performing the service. STEVE Rebolledo (Scribe) documented in this encounter Plan of Treatment Not on file documented as of this encounter Visit Diagnoses Diagnosis Abrasion of left cornea, initial encounter- Primary Conjunctival hemorrhage of left eye Conjunctival hemorrhage Nuclear sclerotic cataract of both eyes Senile nuclear sclerosis Blunt trauma of left eye, initial encounter documented in this encounter Historical Medications * This list may reflect changes made after this encounter. Medication Sig Dispensed Refills Start Date End Date folic acid (FOLVITE) 1 mg tablet Take 1 mg by mouth daily. 02/10/2022 cholecalciferol, Vitamin D3, 25 mcg (1,000 unit) tablet Take 1,000 Units by mouth daily. 02/10/2022 acetylcysteine (NAC) 600 mg capsule Take 600 mg by mouth daily. 11/30/2022 ascorbic acid, vitamin C, (VITAMIN C) 500 mg tablet Take 500 mg by mouth daily. 11/30/2022 added in this encounter Eye Exam Visual Acuity (Snellen - Linear) Right eye Left eye Dist cc 20/20 -2 20/30 -2 Correction: Glasses Tonometry (Applanation, 15:01) Right eye Left eye Pressure 16 17 Pupils Pupils Dark Shape React APD Right eye PERRL 4 Round Brisk - Left eye PERRL 4 Round Brisk - Neuro/Psych Oriented x3: Yes Dilation Both eyes: Tropicamide 1%, P henylephrine 2.5% @ 15:15 Slit Lamp Exam Right eye Left eye Lids/Lashes Normal swelling of lids Conjunctiva/Sclera White and quiet +++ Injection , MANUEL Cornea Clear Double abrasion one above other. Anterior Chamber Deep and quiet Deep Iris Round and reactive Round and harjit ctive Lens Clear Clear Vitreous No VH Fundus Exam Right eye Left eye Macula looks good Vessels Normal Periphery Normal No Commotio Care Teams Consulting Services Manager Relationship Specialty Start Date End Date Trisha Jacobson, GENERAL LITHOGRAPHIC WORKER [address] [place] [phone] PCP - General 08/28/21 11/13/23 documented as of this encounter
--- OUTSIDE RECORDS SUMMARY | 2024-07-15 21:48 | XMS_ITS | Encounter Summary ---
Author Organization [facility] Address [address] [place] [address] Care Team Providers Care Bradley Linebacker Crewmember Name Role Phone Unknown, Provider Primary Care Provider Encounter Details Date Type Department Care Team ([facility] st Contact Info) Description 04/09/[address] [facility] - Main [address] [address] Anish Newsome MD [address] [place] [phone] Social History Tobacco Use Types Packs/Day Years [...] Date/Time Associated Diagnosis Comments COMPLETE BLOOD COUNT WITH DIFFERENTIAL (AUTO) Routine 04/09/2021 14:36 EDT COMPREHENSIVE METABOLIC PANEL (CMP) Routine 04/09/2021 14:36 EDT documented in this encounter Results * (ABNORMAL) COMPREHENSIVE METABOLIC PANEL (CMP) (04/09/2021 14:36 EDT) Albumin % 4.8 3.4 - 4.9 g/dL 04/09/2021 14:[address] [facility] ALKALINE PHOSPHATASE - [facility] 89 38 - 126 U/L 04/09/2021 14:52 [facility] BILIRUBIN TOTAL 0.4 0.2 - 1.3 mg/dL 04/09/2021 14:52 [facility] BUN - [facility] 16 10 - 26 mg/dL 04/09/2021 14:52 [facility] CALCIUM - [facility] 10.1 8.5 - 10.5 mg/dL 04/09/2021 14:52 [facility] Chloride 103 96 - 110 mmol/L 04/09/2021 14:52 [facility] CO2 Total 23 22 - 32 mEq/L 04/09/2021 14:52 [facility] CREATININE 0.58 0.52 - 1.04 mg/dL 04/09/2021 14:52 [facility] eGFR >60 04/09/2021 14:52 [facility] Comment: Chronic renal impairment is defined as GFR <60 Multiply result by 1.210 for patients. eGFR calculated using the IDMS-traceable MDRD Study Equation. ??(effective 07/20/2014) Anion Gap 15 0 - 18 04/09/2021 14:52 [facility] GLUCOSE - [facility] 98 70 - 100 mg/dL 04/09/2021 14:52 [facility] Potassium 4.3 3.5 - 5.0 mEq/L 04/09/2021 14:52 [facility] Sodium 141 136 - 145 mEq/L 04/09/2021 14:52 [facility] TOTAL PROTEIN - [facility] 8.3(H) 6.2 - 8.2 gm/dL 04/09/2021 14:52 [facility] SGOT/AST - [facility] 26 14 - 36 U/L 04/09/2021 14:52 [facility] SGPT/ALT - [facility] 34 0 - 35 U/L 14:52 [facility] 04/09/2021 14:3 6 EDT 04/09/2021 14:36 EDT Anish Newsome MD CHEMISTRY & BLOOD GA S ORDERABLES [facility] [address] [place] [address] * (ABNORMAL) COMPLETE BLOOD COUNT WITH DIFFERENTIAL (AUTO) (04/09/2021 14:36 EDT) ABSOLUTE NEUTROPHIL COUN - [facility] 7.1 2.2 - 8.85 10e3/uL 04/09/2021 14:[address] [facility] BASO # - [facility] 0.03 0.01 - 0.11 10e/uL 04/09/2021 14:42 [facility] BASO % - [facility] 0 0 - 2 % 04/09/2021 14:42 [facility] EOS # - [facility] 0.14 0.03 - 0.61 10e3/ul 04/09/2021 14:42 [facility] EOS % - [facility] 1 0 - 5 % 04/09/2021 14:42 [facility] GRAN % - [facility] 70.6 40 - 80 % 04/09/2021 14:42 [facility] HEMATOCRIT - [facility] 40.5 34.9 - 44.4 % 04/09/2021 14:42 [facility] HEMOGLOBIN - [facility] 12.7 11.6 - 15.2 g/dl 04/09/2021 14:42 [facility] IG# - [facility] 0.04 0 - 0.7 10e3/uL 04/09/2021 14:42 [facility] IG% - [facility] 0.4 0 - 0.9 % 04/09/2021 14:42 [facility] LYMPH # - [facility] 2.4 1.09 - 3.3 10e3/ul 04/09/2021 14:42 [facility] LYMPH% - [facility] 23.8 20 - 40 % 04/09/2021 14:42 [facility] MEAN CORPUSCULAR HGB - [facility] 29.0 26.7 - 33.3 pg 04/09/2021 14:42 [facility] MEAN CORPUSCULAR HGB CONC - [facility] 31.4(L) 32.1 - 35.9 g/dL 04/09/2021 14:42 [facility] MEAN CELL VOLUME - [facility] 92.5 81 - 98 fl 04/09/2021 14:42 [facility] MONO # - [facility] 0.4 0.1 - 0.8 10e3/uL 04/09/2021 14:42 [facility] MONO% - [facility] 3.5 0 - 12 % 04/09/2021 14:42 [facility] PLATELET COUNT 255 141 - 377 10e3/ul 04/09/2021 14:42 [facility] RED BLOOD COUNT - [facility] 4.38 3.86 - 5.04 10e6/ul 04/09/2021 14:42 [facility] RED CELL DISTRI WIDTH - [facility] 12.2 <14.7 % 04/09/2021 14:42 [facility] WHITE BLOOD COUNT - [facility] 10.1 4.0 - 12.4 10e3/ul 04/09/2021 14:42 [facility] 04/09/2021 14:3 6 EDT 04/09/2021 14:36 EDT Anish Newsome MD HEMATOLOGY & PF4 ORD ERABLES Performing Organization Address City/State/[facility] Co de Phone Number [facility] [address] [place] [address] documented in this encounter Visit Diagnoses Not on filedocumented in this encounter Care Teams Bradley Linebacker Crewmember Relationship Specialty Start Date End Date Unknown, Provider, PCP - General 01/26/09 08/27/21 documented as of this encounter
--- OUTSIDE RECORDS SUMMARY | 2024-07-15 21:48 | XMS_ITS | Encounter Summary ---
Author Organization [facility] Address [address] [place] [address] Care Team Providers Care Casket Coverer Name Role Phone Trisha Jacobson APRN Primary Care Provider + Whitley Sage Unavailable Reason for Visit * Reason Comments New Patient Visit Asthma, moderate per sistent: Patient reports that they always have wheezing. Has contracted pneuomnia multiple times; 5 times in 2019. * Referral (Routine) - Authorization Not Required Specialty Diagnoses / Procedures Referred By [facility] justin Referred To Contact Pulmonary Disease Diagnoses Asthma, moderate persistent Trisha Jacobson APRN [address] [place] [address] [facility] Pulmonology [address] [place] [id number] Referral ID Status Reason Start Date Expiration Date Visits Requested Visits Authorized [id number] Authorization Not Required 1 1 Encounter Details Date Type Department Care Team (Late st Contact Info) Description 05/05/2022 8:30 EDT Office Visit [facility] Pulmonology [address] [place] [id number] Whitley Sage MBBS [address] [facility], [address] [place] [address] Asthma in adult, moderate persistent, uncomplicated (Primary Dx); SOB (shortness of breath); Severe obstructive sleep apnea Social History Tobacco Use Types Packs/Day Years [...] Sign Reading Time Taken Comments Blood Pressure 124/84 05/05/2022 0824 EDT Pulse 86 05/05/2022 0824 EDT Temperature 36.8 ??C (98.2 ??F) 05/05/2022 0824 EDT Respiratory Rate 16 05/05/2022 0824 EDT Oxygen Saturation 99% 05/05/2022 08 EDT Inhaled Oxygen Concentration - - Weight 180.6 kg (398 lb 3.2 oz) 05/05/2022 0824 EDT Height 162.6 cm (5' 4) 05/05/2022 0824 EDT Body Mass Index 68.35 05/05/2022 0824 EDT documented in this encounter Functional Status [...] * Patient Instructions* Whitley Sage MBBS - 05/05/2022 8:30 EDT - Start spiriva as prescribe (new inhaler ) - continue advair and albuterol inhaler as needed - discussed about effects of obesity on lung function - discussed about weight loss and exercise regimen - will evaluate with IgE, NT pro BNP (blood tests) - discussed about home environment modification and allergen mitigation documented in this encounter Ordered Prescriptions Prescription Sig Dispensed Refills Start Date End Da te tiotropium (SPIRIVA) 18 mcg inhalation capsuleIndications:Asthma in adult, moderate persistent, uncomplicated Inhale 1 capsule as directed daily. 1 Each 5 05/05/2022 10/16/2022 documented in this encounter Progress Notes * Whitley Sage MBBS - 05/05/[address] [facility] Pulmonary Consultation PCP: Trisha Jacobson Chief Complaint Patient presents with ??? New Patient Visit Asthma, moderate persistent: Patient reports that they always have wheezing. Has contracted pneuomnia multiple times; 5 times in 2019. Assessment & Plan Cecilia Connelly is a 37 y.o. female with H/o asthma, gerd, MEY on bipap , HTN referred for asthma. Ex-smoker, quit 2013, 10 pack years. Asthma in adult, moderate persistent, uncomplicated - type II/allergic Vs obesity related - [...] past, low suspicion of OHS or right heartdysfunction, will order nt pro bnp since she has symptoms disproportionate to PFT. If elevated willconsider echo. Instructions to Patient Patient Instructions - Start spiriva as prescribe (new inhaler ) - continue advair and albuterol inhaler as needed - discussed about effects of obesity on lung function - discussed about weight loss and exercise regimen - will evaluate with IgE, NT pro BNP (blood tests) - discussed about home environment modification and allergen mitigation Return to Clinic: 6 m Subjective History - aug 2019 she had pneumonia and then had recurrent episodes in 2019 - usually treated with nebulized meds, prednisone, augmentin - she has had 2 episodes in 2021 - last episode was in January-February 2022 - has had many express care visits over the years - has tried prednisone alone during these episodes but prednisone alone is not effective, prednisone with antibiotics more effective - she has dyspnea on exertion and wheezing on exertion - she uses the albuterol inhaler <1/week now, but if she goes for a walk she has to take it - she complaints of mMRC grade 2 dyspnea, ok with ADL, can climb 1 flight of stairs - no night time inhaler - she is on bipap - knee pain also limiting factor - has dust allergy, seasonal allergies (spring and fall are worst) , dog exposure can worsen allergies - has had frequent URI, ear infections since childhood - morning cough and sputum - yellowish, thick Review of Systems Constitutional: Negative for chills, fever, malaise/fatigue and weight loss. HENT: Negative for congestion. + rhinorrhea Eyes: + itchy /watery eyes Respiratory: Negative for hemoptysis. Cardiovascular: Positive for chest pain and palpitations. Negative for orthopnea and leg swelling. Gastrointestinal: Positive for heartburn. Negative for constipation and diarrhea. Genitourinary: Positive for hematuria (was told she has hematuria- microscopic). Musculoskeletal: Positive for joint pain (knee pain). Skin: Positive for rash (h/o eczema). Neurological: Positive for tingling (numbness). Negative for weakness. Endo/Heme/Allergies: Positive for environmental allergies. PMH, PSH reviewed Objective Findings: BP 124/84 (BP Cuff Location: Right arm, BP Patient Position: Sitting) Pulse 86 Temp 36.8 ??C (98.2 ??F) (Oral) Resp 16 Ht 162.6 cm (64) Wt (!) 180.6 kg (398 lb 3.2 oz) SpO2 99% BMI 68.35 kg/m?? Physical Exam Constitutional: General: She is [...] There is no clubbing. Pulmonary History mMRC 2 Alpha-1 BMI Body mass index is 68.35 kg/m??. Home O2/NIV bipap Smoking History Previously smoked 1 pack a day for 10 years and quit in 2013. 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 Pets: 2 kittens Home: no suspicion of mold in the house, old house; before lived in a trailer and there was mold there Heating System: ZEALER Carpeting: none Hobbies: spending time with family Hospitalizations, ED, Outpatient Exacerbations ED 12/26/21: Acute pain of right knee; Osteoarthritis of right knee ED 08/28/21: Abrasion of left cornea PFTs Date FEV 1 FEVC FEV1/FVC Bronchodilator Response TLC RV ERV DLCO 2021 2.68- 86% 3.26- 87% 82 Not significant 0.25- 20% 27.76- 125% Imaging Chest XR None CT Chest/PET None Echo None Labs Abs Eos 04/09/21- 0.14 K/cmm (0.03 - 0.61 K/cmm) Hgb 04/09/21- 12.7 mg/dL (11.6 - 15.2 gm/dL) HCO2 04/09/21- 23 mmol/L (22 - 32 mmol/L) NTproBNP pg/mL (<125 pg/mL) Microbiology Pathology Immunizations Influenza: fall 2020 COVID-19: Moderna: 09/23/20, 10/25/20, 07/25/21 Pneumococcal: 05/05/2022 Outpatient Encounter Medications as of 05/05/2022: ??? acetaminophen (TYLENOL) 650 mg CR tablet, 650 mg, oral, Q8H PRN ??? acetylcysteine (NAC) 600 mg capsule, 600 mg, oral, DAILY ??? ADVAIR HFA 230-21 mcg/actuation inhaler, ??? albuterol (ACCUNEB) 2.5 mg /3 mL (0.083 %) nebulizer solution, 2.5 mg, nebulization, Q4H PRN ??? albuterol 90 mcg/actuation inhaler, 2 Puff, inhalation, Q4H PRN ??? ALLERGARD GLOVES MISC, by misc (non-drug; combo route) route. ??? aminocaproic acid (AMICAR) 500 mg tablet, Take 1,000 mg by mouth. BID (Patient not taking: Reported on 05/05/2022) ??? ascorbic acid, vitamin C, (VITAMIN C) 500 mg tablet, 500 mg, oral, DAILY (Patient not taking: Reported on 05/05/2022) ??? blue-green algae (SPIRULINA MISC), 500 mg, misc (non-drug; combo route), DAILY ??? buPROPion (WELLBUTRIN XL) 150 mg XL tablet, 150 mg, oral, DAILY (Patient not taking: Reported on 05/05/2022) ??? Cholecalciferol, Vitamin D3, 50 mcg capsule, TAKE 2 CAPSULES BY MOUTH ONCE DAILY ??? fexofenadine (PRAVIN) 180 mg tablet, 180 mg, oral, DAILY ??? fluticasone propionate (FLONASE) 50 mcg/actuation nasal spray, 100 mcg, nasal - both, BID ??? glucosam/artur-msm1/C/osbaldo/bosw (OSTEO BI-FLEX TRIPLE STRENGTH ORAL), 2 Tablet, oral, DAILY (Patient not taking: Reported on 05/05/2022) ??? glucosamine/chondr anguiano A sod (OSTEO BI-FLEX ORAL), Take by mouth 2 times daily. (Patient not taking: Reported on 05/05/2022) ??? ketotifen (ALAWAY) 0.025 % (0.035 %) ophthalmic solution, 1 Drop, both eyes, BID ??? L-Methylfolate 15 mg tablet, ??? Lactobacillus acidophilus (PROBIOTIC) 10 billion cell capsule, Take by mouth daily. ??? lactobacillus rhamnosus, GG, (CULTURELLE) 10 billion cell capsule, 1 capsule, oral, DAILY (Patient not taking: Reported on 05/05/2022) ??? lactose-reduced food (NUTRITIONAL SUPPLEMENT ORAL), Take by mouth. ??? lamoTRIgine (LAMICTAL) 200 mg tablet, TAKE 1 TABLET BY MOUTH ONCE DAILY CONTINUE TO MONITOR RASH ??? Lavender Oil oil, by other route. ??? Leg Brace (KNEE STABILIZER) misc, by misc (non-drug; combo route) route. Leg brace (Patient nottaking: Reported on 05/05/2022) ??? lisdexamfetamine (VYVANSE) 10 mg capsule, 10 mg, oral, DAILY ??? lisinopriL (PRINIVIL) 40 mg tablet, 40 mg, oral, DAILY ??? LORazepam (ATIVAN) 1 mg tablet, 1 mg, oral, BID ??? Magnesium Gluconate (MAG-G) 27 mg magnesium (500 mg) tablet, 1,000 mg, oral, BID ??? magnesium oxide (MAG-OX) 400 mg (241.3 mg magnesium) tablet, 2,000 mg, oral, BID (Patient not taking: Reported on 05/05/2022) ??? melatonin 5 mg tablet,disintegrating, 2 tabs at hs ??? moxifloxacin (VIGAMOX) 0.5 % ophthalmic solution, 1 Drop, left eye, QID (Patient not taking: Reported on 05/05/2022) ??? Multivitamins with Minerals tablet tablet, 3 Tablet, oral, DAILY (Patient not taking: Reported on 05/05/2022) ??? naproxen (NAPROSYN) 500 mg tablet, 1 tab twice daily ??? omeprazole (PRILOSEC) 40 mg capsule, Take by mouth daily. ??? oxygen-air delivery systems (HORIZON NASAL CPAP SYSTEM MISC), by misc (non- drug; combo route) route. ??? sertraline (ZOLOFT) 100 mg tablet, TAKE 1 TABLET BY MOUTH ONCE DAILY DIRECTED ??? tiotropium (SPIRIVA) 18 mcg inhalation capsule, 18 mcg, inhalation, DAILY ??? UNABLE TO FIND, Med Name: THC edibles ??? VITAMINS B COMPLEX tablet, 1 Tablet, oral, BID ??? VYVANSE 30 mg capsule, TAKE 1 CAPSULE BY MOUTH IN THE MORNING ALONG WITH 10MG IN THE AFTERNOON I spent a total of 53 minutes on the date of this encounter meeting with the patient and reviewing documentation/coordinating care as described in the above note. No procedures were performed at the time of the visit. Thank you for the consult J CARLOS [facility] Pulmonary Attending [facility] * Jewels Vuong RN - 05/05/2022 0830 EDT Cecilia Connelly has received the PCV-20 immunization today. VIS given to patient and all questions were answered. The procedure was tolerated well. JEWELS VUONG RN 05/05/2022 10:06 documented in this encounter Miscellaneous Notes * Assessment & Plan Note - Whitley Sage MBBS - 05/08/2022 1236 EDTAssociated Problem(s): Asthma in adult, moderate persistent, uncomplicated - type II/allergic Vs obesity related - [...] past, low suspicion of OHS or right heartdysfunction, will order nt pro bnp since she has symptoms disproportionate to PFT. If elevated willconsider echo. documented in this encounter Plan of Treatment Not on file documented as of this encounter Procedures Procedure Name Priority Date/Time Associated Diagnosis Comments NT PRO BNP Routine 06/29/2022 13:21 EDT SOB (shortness of breath) Severe obstructive sleep apnea IGE Routine 06/29/2022 13:21 EDT Asthma in adult, moderate persistent, uncomplicated documented in this encounter Results * (ABNORMAL) IGE (06/29/2022 13:21 EDT) IgE 255(H) <158 IU/mL 06/30/2022 9:10 EDT [facility] Blood VENOUS BLOOD / Unknown Venipuncture / Unknown 06/29/2022 13:21 EDT 06/29/2022 13:32 EDT Whitley WHITMAN CHEMI STRY & BLOOD GAS ORDERABLES [facility] [address] [place] [address] * NT PRO BNP (06/29/2022 13:21 EDT) NT-pro BNP 33 <125 pg/mL 06/29/2022 14:00 EDT [facility] Comment:The results of this assay can be falsely lowered due to consumption of Biotin. Blood VENOUS BLOOD / Unknown Venipuncture / Unknown 06/29/2022 13:21 EDT 06/29/2022 13:32 EDT Whitley WHITMAN CHEMI STRY & BLOOD GAS ORDERABLES [facility] [address] [place] [address] documented in this encounter Visit Diagnoses Diagnosis Asthma in adult, moderate persistent, uncomplicated- Primary SOB (shortness of breath) Shortness of breath Severe obstructive sleep apnea Obstructive sleep apnea (adult) (pediatric) documented in this encounter Historical Medications * This list may reflect changes made after this encounter. Medication Sig Dispensed Refills Start Date End Date blue-green algae (SPIRULINA MISC) 500 mg by misc (non-drug; combo route) route daily. 6 tablets every AM 11/30/2022 added in this encounter Orders Immunization/Injection Count Last Ordered Date First Ordered Date PNEUMOCOCCAL CONJUGATE VACCI NE 20-VALENT (PCV20) (PREVNAR-20) IM (18 YRS+) 1 05/05/2022 documented in this encounter Care Teams Casket Coverer Relationship Specialty Start Date End Date Trisha Jacobson, TOOL GRINDER OPERATOR EXTERNAL [address] [place] [id number] PCP - General 08/28/21 11/13/23 Whitley Sage MBBS [address] [place] [address], [address] [place] [address] Consulting Clinician Pulmonary Disease 05/01/22 documented as of this encounter
--- OUTSIDE RECORDS SUMMARY | 2024-07-15 21:48 | XMS_ITS | Encounter Summary ---
Author Organization [facility] Address [address] [place] [address] Care Team Providers Care Back Facer Name Role Phone Trisha Jacobson Hoa PANDYA Primary Care Provider + Encounter Details Date Type Department Care Team (Latest Contact Info) Description 02/10/2022 18:40 EDT - 02/10/2022 23:[address] [facility] [place] [address] [place] [id number] [employer] [facility], [facility] Discharge Disposition: Home or Self Care Social History Tobacco Use Types Packs/Day Years Used Date Smoking Tobacco: Former Cigarettes Q uit: 2014 Sex and Gender Information Value Date Recorded Sex Assigned at Not on file Gender Identity Female 04/26/2022 9:31 EDT Sexual Orientation Not on file documented as of this encounter Functional Status Functional Status Response Date of Assess ment Are you deaf or do you have serious difficulty h earing? No 12/26/2021 documented as of this encounter Medications at Time of Discharge Medication Sig Dispensed Refills Start Date End Date acetaminophen (TYLENOL) 650 mg CR tablet Take 1 Tablet by mouth every 8 hours as needed. ADVAIR HFA 230-21 mcg/actuation inhaler Inhale 2 Puffs as directed 2 times daily. 01/23/2022 albuterol 90 mcg/actuation inhaler Inhale 2 Puffs [...] oxygen-air delivery systems (HORIZON NASAL CPAP SYSTEM [facility]) by misc (non-drug; combo route) route. UNABLE [...] Take 500 mg by mouth daily. 11/30/2022 buPROPion (WELLBUTRIN XL) 150 mg XL tablet Take 150 mg by mouth daily. 11/30/2022 glucosam/artur-msm1/C/ma ng/bosw (OSTEO BI-FLEX TRIPLE STRENGTH ORAL) Take 2 Tablets by mouth daily. 11/30/2022 glucosamine/chondr anguiano A sod (OSTEO BI-FLEX ORAL) Take by mouth 2 times daily. 11/08/2023 Lactobacillus acidophilus (PROBIOTIC) 10 billion cell capsule Take by mouth daily. 11/08/2023 lactobacillus rhamnosus, GG, (CULTURELLE) 10 billion cell capsule Take 1 Capsule by mouth daily. 11/08/2023 lactose-reduced food (NUTRITIONAL SUPPLEMENT ORAL) Take by mouth. 11/08/2023 magnesium oxide (MAG-OX) 400 mg (241.3 mg magnesium) tablet Take 2,000 mg by mouth 2 times daily. 11/08/2023 melatonin 5 mg tablet,disintegrating 2 tabs at hs 01/20/20222023 omeprazole (PRILOSEC) 40 mg capsule Take by mouth daily. 12/24/20212021 oxyCODONE (ROXICODONE) 5 mg immediate release tablet Take 1 Tablet by mouth every 6 hours as needed for up to 10 doses for Pain. Daily Max: 20 mg 10 Tablet 12/26/2021 04/04/2022 polyethylene glycol (MIRALAX) 17 gram/dose powder Take 17 g by mouth daily. 04/04/2022 sertraline (ZOLOFT) 100 mg tablet TAKE 1 TABLET BY MOUTH ONCE DAILY DIRECTED 11/15/2021 02/01/2023 documented as of this encounter Discharge Disposition Disposition Code Departure Means Destination Home or Self Care documented in this encounter Plan of Treatment Not on file documented as of this encounter Procedures Procedure Name Priority Date/Time Associated Diagnosis Comments STOOL CULTURE INC. SHIGA TOXIN Routine 02/10/2022 18:00 EDT documented in this encounter Results * STOOL CULTURE INC. SHIGA TOXIN (02/10/2022 18:00 EDT) Organism ID No Campylobacter sp, Salmonella sp. Shigella sp. or E. Coli [id number] VITEK SUSCEPTIBILITY 02/13/2022 10:[address] [facility] Feces SPECIMEN FROM RECTUM / Unknown Stool Collect / Unknown 02/10/2022 18:00 EDT 02/10/2022 18:[address] [facility] - 02/13/2022 10:24 EDT Stool Culture: ?No Campylobacter sp. Isolated ?No E.coli 0157:H7 isolated ?No Salmonella or Shigella isolated Shiga toxins 1 & 2: ?E. coli Shiga toxin 1 ? E. coli Shiga toxin 1 not detected ?E. coli Shiga toxin 2 ? E. coli Shiga toxin 2 not detected Stool specimen is negative for E.coli Shiga toxin 1 and Shiga toxin 2. Linda Crisostomo ATTIC FANS MECHANIC MICROBIOLOGY - GENER AL ORDERABLES [facility] [address] [place] [address] documented in this encounter Visit Diagnoses Not on filedocumented in this encounter Care Teams Back Facer Relationship Specialty Start Date End Date Trisha Jacobson, CHART COLLECTOR [address] [place] [address] PCP - General 08/28/21 11/13/23 documented as of this encounter
--- OUTSIDE RECORDS SUMMARY | 2024-07-15 21:48 | XMS_ITS | Encounter Summary ---
Author Organization [facility] Address [address] [place] [address] Care Team Providers Care Health Counselor Name Role Phone Trisha Jacobson APRN Primary Care Provider + Encounter Details Date Type Department Care Team (Latest Contact Info) Description 02/24/2022 Travel Social History Tobacco Use Types Packs/Day [...] suspected to have Coronavirus/COVID-19? No / Unsure 02/24/2022 15:00 EDT documented as of this encounter Functional Status Functional Status Response Date of Assess ment Are you deaf or do you have serious difficulty h earing? No 12/26/2021 documented as of this encounter Plan of Treatment Not on file documented as of this encounter Visit Diagnoses Not on filedocumented in this encounter Care Teams Health Counselor Relationship Specialty Start Date End Date Trisha Jacobson APRN [address] [place] [address] PCP - General 08/28/21 11/13/23 documented as of this encounter
--- OUTSIDE RECORDS SUMMARY | 2024-07-15 21:48 | XMS_ITS | Encounter Summary ---
Author Organization [facility] Address [address] [place] [address] Care Team Providers Care Material Analyst Name Role Phone Trisha Jacobson Hoa PANDYA Primary Care Provider + Reason for Visit * Reason Comments Diarrhea Emesis Encounter Details Date Type Department Care Team ([facility] Contact Info) Description 02/10/2022 10:15 EDT [place]-[facility] [address] [place] [address] Linda Crisostomo, CLAUDIO [address] [place] [address] Diarrhea, unspecified type (Primary Dx); Non-intractable vomiting without nausea, unspecified vomiting type Social History Tobacco Use Types Packs/Day Years Used Date Smoking Tobacco: Former Cigarettes Q uit: 2014 Sex and Gender Information Value Date Recorded Sex Assigned at Not on file Gender Identity Female 04/26/2022 9:31 EDT Sexual Orientation Not on file documented as of this encounter Last Filed Vital Signs Vital Sign Reading Time Taken Comments Blood Pressure 128/84 02/10/2022 1014 EDT Pulse 97 02/10/2022 1014 EDT Temperature 36.8 ??C (98.3 ??F) 02/10/2022 1014 EDT Respiratory Rate 24 02/10/2022 1014 EDT Oxygen Saturation 99% 02/10/2022 1014 EDT Inhaled Oxygen Concentration - - Weight - - Height - - Body Mass Index - - documented in this encounter Functional Status Functional Status Response Date of Assess ment Are you deaf or do you have serious difficulty h earing? No 12/26/2021 documented as of this encounter Patient Instructions * Patient Instructions* Linda Crisostomo - 02/10/2022 10:15 EDT Images from the original note were not included. You were seen today for vomiting and diarrhea. This is most likely a viral illness which should run its course over 7 to 10 days. Given the duration of your symptoms stool testing has been ordered to rule out other infectious pathogens that may require treatment. Please follow the directions [facility] We will follow-up with these results when available, typically 1 to 3 days following lab drop-off. You have been tested for COVID-19 but are safe to care for yourself at home. Please remain self isolated until your test results are available and continued plan of care can be discussed. Continue with excellent hydration and bland foods as tolerated, use Gatorade or Pedi Lyte for oral rehydration, dilute this in a one-to-one ratio with water and sip throughout the day. You are advised to seek urgent reassessment in the EMERGENCY DEPARTMENT for any new/worsening signsand symptoms such as worsening abdominal pain, fever, inability to eat or drink due to vomiting, dizziness, chest pain or other. [facility] Patient Instructions Gastroenteritis: Care Instructions Overview Gastroenteritis is an illness that may cause nausea, vomiting, and diarrhea. It can be caused by bacteria or a virus. You will probably begin to feel better in 1 to 2 days. In the meantime, get plenty of rest and makesure you do not become dehydrated. Dehydration occurs when your body loses too much fluid. Follow-up care is a broderick part of your treatment and safety. Be sure to make and go to all appointments, and call your doctor if you are having problems. It's also a good idea to know your test resultsand keep a list of the medicines you take. How can you care for yourself at home? ?? If your doctor prescribed antibiotics, take them as directed. Do not stop taking them just because you feel better. You need to take the full course of antibiotics. ?? Drink plenty of fluids to prevent dehydration. Choose water and other clear liquids until you feel better. If you have kidney, heart, or liver disease and have to limit fluids, talk with your doctor before you increase your fluid intake. ?? Drink fluids slowly, in frequent, small amounts, because drinking too much too fast can cause vomiting. ?? Begin eating mild foods, such as dry toast, yogurt, applesauce, bananas, and rice. Avoid spicy, hot, or high-fat foods, and do not drink alcohol or caffeine for a day or two. Do not drink milk or eat ice cream until you are feeling better. How to prevent gastroenteritis ?? Keep hot foods hot and cold foods cold. ?? Do not eat meats, dressings, salads, or other foods that have been kept at room temperature for more than 2 hours. ?? Use a thermometer to check your refrigerator. It should be between 34??F and 40??F. ?? Defrost meats in the refrigerator or microwave, not on the kitchen counter. ?? Keep your hands and your kitchen clean. Wash your hands, cutting boards, and countertops with hot soapy water frequently. ?? Cook meat until it is well done. ?? Do not eat raw eggs or uncooked sauces made with raw eggs. ?? Do not take chances. If food looks or tastes spoiled, throw it out. When should you call for help? Call 911 anytime you think you may need emergency care. For example, call if: ? You vomit blood or what looks like coffee grounds. ? You passed out (lost consciousness). ? You pass maroon or very bloody stools. Call your doctor now or seek immediate medical care if: ? You have severe belly pain. ? You have signs of needing more fluids. You have sunken eyes, a dry mouth, and pass only a little urine. ? You feel like you are going to faint. ? You have increased belly pain that does not go away in 1 to 2 days. ? You have new or increased nausea, or you are vomiting. ? You have a new or higher fever. ? Your stools are black and tarlike or have streaks of blood. Watch closely for changes in your health, and be sure to contact your doctor if: ? You are dizzy or lightheaded. ? You urinate less than usual, or your urine is dark yellow or brown. ? You do not feel better with each day that goes by. Where can you learn more? Go to https://www.[employer]/CleanMyCRM or log into your [employer] account at https://[employer]xcel.CleanMyCRM.org Enter N142 in the search box to learn more about Gastroenteritis: Care Instructions. Current as of: March 17, 2021?Content Version: 13.2 ?? [employer]. Care instructions adapted under license by [facility]. If you have questions about a medical condition or this instruction, always ask your healthcare professional. [employer] disclaims any warranty or liability for your use of this information. documented in this encounter Progress Notes * Aisha Galloway LPN - 02/10/2022 1015 EDT CC/HPI: Covid Screening: In the last 72 hours, has the patient had: New or unusual cough, shortness of breath, new nasal congestion, sore throat, fever, chills, body aches, or new loss of taste or smell without a reasonable alternative diagnosis*? (If yes, assign to ARC) feels hot off and on and has chills In the past 10 days, has the patient had a positive Covid test OR a confirmed close Covid exposure (<6ft for > 15mins in 24hr period)? (if yes, assign to ARC, regardless of vaccination status) no Is the patient fully Covid vaccinated? Yes-plus booster Approximate date of last dose? 07/25/21 per pt *may be determined by RN or in discussion with available provider (ENGLISH INSTRUCTOR's and CCA's can defer to Charge Nurse to complete triage when appropriate) PCP: Trisha Jacobson * Linda Crisostomo - 02/10/2022 1015 EDT [facility] Chief Complaint(s): Chief Complaint Patient presents with ??? Diarrhea ??? Emesis Assessment & Plan: Cecilia was seen today for diarrhea and emesis. Diagnoses and all orders for this visit: Diarrhea, unspecified type - COVID-19 TESTING - FECAL BACTERIAL PATHOGENS BY PCR - GIARDIA/CRYPTO ANTIGEN Non-intractable vomiting without nausea, unspecified vomiting type Cecilia Connelly is a pleasant and cooperative 37 y.o. yr old female who presents with 7 days of GI symptoms. History and physical exam most consistent with viral illness, however, given duration and persistence of symptoms fecal testing is ordered. COVID testing is performed. Work note is provided. Patient is afebrile, non toxic, well hydrated, stable on exam. I printed material and reviewed home management and follow up in detail with patient, see patient instructions below. Patient is advised in use of [employer] to access any lab results or other [...] of care. HPI: Cecilia Connelly is a 37 y.o. yr old female who is here with chief complaint of seven days of vomiting/diarrhea. Began as abdominal cramping and belching and progressed to diarrhea and vomiting. She notes no episodes of diarrhea or vomiting today, feels slightly improved from yesterday. She is drinking liquids, trying to drink Gatorade. She has been unable to eat much food as food intake results in either vomiting or diarrhea. Her daughter had diarrhea around the same time as onset of Cecilia's symptoms, her daughter's symptoms have resolved. No recent travel or unusual water sources. She has tried Pepto-Bismol. She has had chills Patient denies: known fever, cough, rhinorrhea, hematochezia, shortness of breath, progressive abdominal pain, nausea I have reviewed current problem list, current medications and allergies. ROS: Review of Systems Constitutional: Positive for chills. Negative for fever. HENT: Negative for congestion. Gastrointestinal: Positive for diarrhea and vomiting. Negative for blood in stool and nausea. See HPI for details Objective: Vitals and nursing notes reviewed Examination: BP 128/84 Pulse 97 Temp 36.8 ??C (98.3 ??F) (Oral) Resp 24 SpO2 99% Physical Exam Vitals and nursing note reviewed. Constitutional: General: She is awake. She is not in acute distress. Appearance: She is obese. She is not ill-appearing, toxic-appearing or diaphoretic. Eyes: Conjunctiva/sclera: Conjunctivae normal. Pupils: Pupils are equal, round, and reactive to light. Abdominal: General: Bowel sounds are normal. Tenderness: There is generalized abdominal tenderness. There is no guarding or rebound. Skin: General: Skin is warm and dry. Neurological: Mental Status: She is alert. Gait: Gait is intact. Gait normal. Psychiatric: Behavior: Behavior is cooperative. This note may be in part documented using [employer] dictation software. Please forgive any errors, omissions or typos that may result from use of dictation. documented in this encounter Plan of Treatment Not on file documented as of this encounter Procedures Procedure Name Priority Date/Time Associated Diagnosis Comments GIARDIA/CRYPTO ANTIGEN Routine 02/10/2022 18:00 EDT Diarrhea, unspecified type ZZCOVID-19 [facility] ([facility]) Today 02/10/2022 11:07 EDT Diarrhea, unspecified type COVID-19 TESTING Routine 02/10/2022 11:0 7 EDT Diarrhea, unspecified type documented in this encounter Results * GIARDIA/CRYPTO ANTIGEN (02/10/2022 18:00 EDT) Giardia duodenalis Negative Negative 2021 21:32 EDT [facility] LAB CRYPTOSPORIDIUM PARVUM Negative Negative 02/10/2022 21:32 EDT [facility] PARASITE SPECIMEN DESCRIPTION Soft 02/10/2022 21:32 EDT [facility] Feces SPECIMEN FROM RECTUM / Unknown Stool Collect / Unknown 02/10/2022 18:00 EDT 02/10/2022 18:45 EDT Linda Crisostomo NP MICROBIOLOGY - GENER AL ORDERABLES Performing Organization Address [facility] de Phone Number [facility] [address] [place] [address] * COVID-19 [facility] ([facility] ONLY) (02/10/2022 11:07 EDT) Swab BOTH ANTERIOR NARES / Unknown Swab / Unknown 02/10/2022 11:07 EDT 02/10/2022 11:07 EDT Linda Crisostomo NP MICROBIOLOGY - GENER AL ORDERABLES Performing Organization Address [facility] Phone Number [facility] [address] [place] [address] * COVID-19 TESTING (02/10/2022 11:07 EDT) COVID-19 rt-PCR Result Negative Negative 02/10/2022 17:04 EDT [facility] Performing Lab Diasorin Liaison [facility] 02/10/2022 17:04 EDT [facility] Swab BOTH ANTERIOR NARES / Unknown Swab / Unknown 02/10/2022 11:07 EDT 02/10/2022 11:07 EDT Linda Crisostomo NP MICROBIOLOGY - GENER AL ORDERABLES Performing Organization Address [facility] Phone Number [facility] [address] [place] [address] documented in this encounter Visit Diagnoses Diagnosis Diarrhea, unspecified type- Primary Non-intractable vomiting without nausea, unspecified vomiting type documented in this encounter Discontinued Medications Medication Sig Discontinue Reason Start Date End Da te cholecalciferol, Vitamin D3, 25 mcg (1,000 unit) tablet Take 1,000 Units by mouth daily. 02/10/2022 fluticasone propion-salmeteroL (ADVAIR HFA) 115-21 mcg/actuation inhaler Inhale 2 Puffs as directed. 02/10/2022 lamoTRIgine (LAMICTAL) 100 mg tablet Take 100 mg by mouth daily. 02/10/2022 naproxen (NAPROSYN) 250 mg tablet Take by mouth 2 times daily. BID 02/10/2022 OMEPRAZOLE ORAL Take by mouth daily. 02/10/2022 sertraline (ZOLOFT) 50 mg tablet Take 100 mg by mouth daily. 02/10/2022 folic acid (FOLVITE) 1 mg tablet Take 1 mg by mouth daily. 02/10/2022 documented as of this encounter Historical Medications * This list may reflect changes made after this encounter. Medication Sig Dispensed Refills Start Date End Date naproxen (NAPROSYN) 500 mg tablet 1 tab twice daily 01/23/2022 VYVANSE 30 mg capsule TAKE 1 CAPSULE BY MOUTH IN THE MORNING ALONG WITH 10MG IN THE AFTERNOON 02/03/2022 lamoTRIgine (LAMICTAL) 200 mg tablet daily. 01/13/2022 ADVAIR HFA 230-21 mcg/actuation inhaler Inhale 2 Puffs as directed 2 times daily. 01/23/2022 Cholecalciferol, Vitamin D3, 50 mcg capsule TAKE 2 CAPSULES BY MOUTH ONCE DAILY 01/10/2022 VITAMINS B COMPLEX tablet Take 1 Tablet by mouth 2 times daily. 11/15/2021 L-Methylfolate 15 mg tablet daily. 01/23/2022 acetaminophen (TYLENOL) 650 mg CR tablet Take 1 Tablet by mouth every 8 hours as needed. albuterol 90 mcg/actuation inhaler Inhale 2 Puffs as directed every 4 hours as needed. lisdexamfetamine (VYVANSE) 50 mg capsule Take 1 Capsule by mouth daily. Lavender Oil oil by other route. 2 pills at HS sertraline (ZOLOFT) 100 mg tablet TAKE 1 TABLET BY MOUTH ONCE DAILY DIRECTED 11/15/2021 3 omeprazole (PRILOSEC) 40 mg capsule Take by mouth daily. 12/24/20212021 melatonin 5 mg tablet,disintegrating 2 tabs at hs 01/20/20222023 OMEPRAZOLE ORAL Take by mouth daily. 01/16 lactobacillus rhamnosus, GG, (CULTURELLE) 10 billion cell capsule Take 1 Capsule by mouth daily. 11/08/2023 fluticasone propion-salmeteroL (ADVAIR HFA) 115-21 mcg/actuation inhaler Inhale 2 Puffs as directed. 02/10/2022 added in this encounter Care Teams Material Analyst Relationship Specialty Start Date End Date Trisha Jacobson, COMPUTER ART INSTRUCTOR [address] [place] [id number] PCP - General 08/28/21 11/13/23 documented as of this encounter
--- OUTSIDE RECORDS SUMMARY | 2024-07-15 21:48 | XMS_ITS | Encounter Summary ---
Author Organization [facility] Address [address] [place] [address] Care Team Providers Care Finance Broker Name Role Phone JacobsonTrisha banerjee Hoa PANDYA Primary Care Provider + Reason for Visit * Reason Comments Cough Wheezing Encounter Details Date Type Department Care Team (Latest Contact Info) Description 02/23/2022 15:30 EDT Office Visit [facility] [address] [place] [id number] Nicole Zazueta PA-C [address] [place] [address] [address] [place] [address] Viral URI with cough (Primary Dx); Asthma in adult, moderate persistent, uncomplicated Social History Tobacco Use Types Packs/Day Years Used Date Smoking Tobacco: Former Cigarettes Q uit: 2014 Sex and Gender Information Value Date Recorded Sex Assigned at Not on file Gender Identity Female 04/26/2022 9:31 EDT Sexual Orientation Not on file documented as of this encounter Last Filed Vital Signs Vital Sign Reading Time Taken Comments Blood Pressure 134/90 02/23/2022 1555 EDT Pulse 92 02/23/2022 1555 EDT Temperature 37 ??C (98.6 ??F) 02/23/2022 1555 EDT Respiratory Rate 24 02/23/2022 1555 EDT Oxygen Saturation 97% 02/23/2022 1555 EDT Inhaled Oxygen Concentration - - Weight - - Height - - Body Mass Index - - documented in this encounter Functional Status Functional Status Response Date of Assess ment Are you deaf or do you have serious difficulty h earing? No 12/26/2021 documented as of this encounter Ordered Prescriptions Prescription Sig Dispensed Refills Start Date End Da te albuterol (ACCUNEB) 2.5 mg /3 mL (0.083 %) nebulizer solutionIndications:As thma in adult, moderate persistent, uncomplicated Take 3 mL by nebulization every 4 hours as needed for Wheezing. 1 Each 02/23/2022 predniSONE (DELTASONE) 20 mg tabletIndications:Asth ma in adult, moderate persistent, uncomplicated Take 2 Tablets by mouth daily for 5 days. 10 Tablet 02/23/2022 02/28/2022 documented in this encounter Progress Notes * Angeles Cardenas - 02/23/2022 1530 EDT CC/HPI: Patient has a history of asthma. She has had a productive cough and wheeze x 1 week. She also reports PND. She denies fever. Antigen test yesterday was negative. Covid Screening: In the last 72 hours, has the patient had: New or unusual cough, shortness of breath, new nasal congestion, sore throat, fever, chills, body aches, or new loss of taste or smell without a reasonable alternative diagnosis*? (If yes, assign to ARC) In the past 10 days, has the patient had a positive Covid test OR a confirmed close Covid exposure (<6ft for > 15mins in 24hr period)? (if yes, assign to ARC, regardless of vaccination status) NO Is the patient fully Covid vaccinated? Approximate date of last dose? Yes fully with one booster *may be determined by RN or in discussion with available provider (GLOVE SEWER's and CCA's can defer to Charge Nurse to complete triage when appropriate) PCP: Trisha Jacobson * Nicole Zazueta PA-C - 02/23/2022 1530 EDT [facility] Chief Complaint(s): Chief Complaint Patient presents with ??? Cough ??? Wheezing Assessment & Plan: 1. Viral URI with cough COVID-19 TESTING 2. Asthma in adult, moderate persistent, uncomplicated predniSONE (DELTASONE) 20 mg tablet albuterol (ACCUNEB) 2.5 mg /3 mL (0.083 %) nebulizer solution New Prescriptions ALBUTEROL (ACCUNEB) 2.5 MG /3 ML (0.083 %) NEBULIZER SOLUTION Take 3 mL by nebulization every 4 hours as needed for Wheezing. PREDNISONE (DELTASONE) 20 MG TABLET Take 2 Tablets by mouth daily for 5 days. Likely asthma exacerbation secondary to viral URI. We did test for COVID, will advise once this hasresulted. She was noted to be wheezy but is afebrile with a good oxygen saturation of 97%. I have prescribed a burst of prednisone, use and side effects reviewed, she has tolerated this well in the past. Recommend she start in the morning. She may continue using her Advair and albuterol every 4 hours, I did refill her albuterol for her nebulizer and provided her with some new tubing here today. She is taking both Antoinette and Flonase, she may continue to do so. She should drink plenty of fluids.If no improvement or with worsening symptoms recommend she follow-up with her primary care provideror may return here. She should go to the emergency department with severe shortness of breath or ifotherwise feeling worse. HPI: 37-year-old woman with history of asthma presents with complaints of URI symptoms and cough for 1 week. Her 2 daughters are here for eval of similar to have been ill for a longer period she reports nasal congestion, postnasal drip, cough and wheezing. She feels like an elephant is sitting on her chest. She is only feeling short of breath when coughing. She is using both her Advair and albuterol inhalers. She does not have a spacer with the albuterol inhaler. She has a nebulizer at home but no tubing or medication for it. She denies any fever or chills, she took a rapid antigen test for COVID that was negative yesterday. She was seen about a month ago at a different walk-in care center for similar symptoms and was treated with prednisone for asthma exacerbation. This was helpful for her. ROS: Review of Systems Constitutional: Negative for chills and fever. HENT: Positive for congestion. Respiratory: Positive for cough and wheezing. Cardiovascular: Negative for chest pain. Objective: Vitals and nursing notes reviewed Examination: BP 134/90 (BP Cuff Location: Right arm, BP Patient Position: Sitting, BP Cuff Sizes: Adult, regular) Comment (BP Cuff Location): radial Pulse 92 Temp 37 ??C (98.6 ??F) (Oral) Resp 24 SpO2 97% Physical Exam Constitutional: General: She is not in acute distress. Appearance: She is not ill-appearing. Comments: Morbidly obese HENT: Head: Normocephalic and atraumatic. Ears: Comments: TMs retracted bilaterally Mouth/Throat: Mouth: Mucous membranes are moist. Pharynx: Oropharynx is clear. Eyes: Conjunctiva/sclera: Conjunctivae normal. Cardiovascular: Rate and Rhythm: Normal rate and regular rhythm. Pulmonary: Effort: Pulmonary effort is normal. Breath sounds: Wheezing present. No rhonchi or rales. Musculoskeletal: Cervical back: Neck supple. Lymphadenopathy: Cervical: No cervical adenopathy. Skin: General: Skin is warm and dry. Neurological: General: No focal deficit present. Mental Status: She is alert. This note was prepared using voice recognition software and the EMR. There may be inadvertent errors and omissions. documented in this encounter Plan of Treatment Not on file documented as of this encounter Procedures Procedure Name Priority Date/Time Associated Diagnosis Comments ZZCOVID-19 [facility]) Today 02/23/2022 16:38 EDT Viral URI with cough COVID-19 TESTING Routine 02/23/2022 16:3 8 EDT Viral URI with cough documented in this encounter Results * COVID-19 [facility]) (02/23/2022 16:38 EDT) Swab BOTH ANTERIOR NARES / Unknown Swab / Unknown 02/23/2022 16:38 EDT 02/23/2022 16:38 EDT Nicole Zazueta PA-C MICROBIOLOGY - GENER AL ORDERABLES [facility] [address] [place] [address] * COVID-19 TESTING (02/23/2022 16:38 EDT) COVID-19 rt-PCR Result Negative Negative 02/23/2022 22:58 EDT [facility] Performing Lab Diasorin Liaison [facility] 02/23/2022 22:58 EDT [facility] Swab BOTH ANTERIOR NARES / Unknown Swab / Unknown 02/23/2022 16:38 EDT 02/23/2022 16:38 EDT Nicole Zazueta PA-C MICROBIOLOGY - GENER AL ORDERABLES [facility] [address] [place] [address] documented in this encounter Visit Diagnoses Diagnosis Viral URI with cough- Primary Acute upper respiratory infections of unspecified site Asthma in adult, moderate persistent, uncomplicated documented in this encounter Care Teams Finance Broker Relationship Specialty Start Date End Date Trisha Jacobson, COMPUTER DESIGNER [address] [place] [address] PCP - General 08/28/21 11/13/23 documented as of this encounter
--- OUTSIDE RECORDS SUMMARY | 2024-07-15 21:48 | XMS_ITS | Encounter Summary ---
Author Organization [facility] Address [address] [place] [address] Care Team Providers Care Imaging Scheduler Name Role Phone Unknown, Provider Primary Care Provider [phone] Reason for Visit * Reason Onset Date Comments Establish Care 01/13/2021 Encounter Details Date Type Department Care Team ([facility] Contact Info) Description 01/13/2021 Telephone [facility] [address] [address] None, Provider Establish Care Social History Tobacco Use Types Packs/Day Years Used Date Smoking Tobacco: Never Assessed Sex and Gender Information Value Date Recorded Sex Assigned at Not on file Gender Identity Female 04/26/2022 9:31 EDT Sexual Orientation Not on file documented as of this encounter Miscellaneous Notes * Telephone Encounter - Marta Thao - 01/13/2021 1625 EDT photofinishing laboratory worker pprwrk mailed to pt. * Telephone Encounter - Ciera Zavala - 01/13/2021 1042 EDT Pt calling to become MANAGER ZONE no PCP in mind. Pt still has pcp and is moving to area in February so wants to have dr here. Pt asked if we could mail MANAGER ZONE now so it doesn't get lost in mail. Pt aware of wait list. documented in this encounter Plan of Treatment Not on file documented as of this encounter Visit Diagnoses Not on filedocumented in this encounter Care Teams Imaging Scheduler Relationship Specialty Start Date End Date Unknown, Provider, PCP - General 01/26/09 08/27/21 documented as of this encounter
--- OUTSIDE RECORDS SUMMARY | 2024-07-15 21:48 | XMS_ITS | Encounter Summary ---
Author Organization [facility] Address [address] [place] [address] Care Team Providers Care Sales Performance Manager Name Role Phone Unknown, Provider Primary Care Provider Encounter Details Date Type Department Care Team (Latest Contact Info) Description 07/12/2016 11:04 EDT - 07/12/2016 23:59 EDT Hospital Encounter [address] [address] Unknown, Provider, Discharge Disposition: Home or Self Care Social History Tobacco Use Types Packs/Day Years Used Date Smoking Tobacco: Never Assessed Sex and Gender Information Value Date Recorded Sex Assigned at Not on file Gender Identity Female 04/26/2022 9:31 EDT Sexual Orientation Not on file documented as of this encounter Discharge Disposition Disposition Code Departure Means Destination Home or Self Detention documented in this encounter Plan of Treatment Not on file documented as of this encounter Visit Diagnoses Not on filedocumented in this encounter Care Teams Sales Performance Manager Relationship Specialty Start Date End Date Unknown, Provider, PCP - General 01/26/09 08/27/21 documented as of this encounter
--- OUTSIDE RECORDS SUMMARY | 2024-07-15 21:48 | XMS_ITS | Encounter Summary ---
Author Organization [facility] Address [address] [place] [address] Care Team Providers Care Apartment Leasing Consultant Name Role Phone JacobsonDanyel banerjeebraden Camara APRN Primary Care Provider + Whitley Sage MBBS Unavailable Reason for Visit * Reason Comments Nausea Emesis Diarrhea Encounter Details Date Type Department Care Team ([facility] st Contact Info) Description 05/18/2022 11:15 EDT Walk-In [address] [address] Jt Sullivan PA-C [address] [place] [address] Gastroesophageal reflux disease, unspecified whether esophagitis present (Primary Dx); Nausea; Loose stools Social History Tobacco Use Types Packs/Day Years [...] Sign Reading Time Taken Comments Blood Pressure 178/85 05/18/2022 1129 EDT Pulse 88 05/18/2022 1129 EDT Temperature 36.4 ??C (97.5 ??F) 05/18/2022 1129 EDT Respiratory Rate 24 05/18/2022 1129 EDT Oxygen Saturation 99% 05/18/2022 1129 EDT Inhaled Oxygen Concentration - - Weight [...] this encounter Patient Instructions * Patient Instructions* Jt Sullivan PA-C - 05/18/2022 11:15 EDT I suspect your symptoms are stemming from poorly controlled GERD. I prescribed an alternate proton pump inhibitor pantoprazole. Take 1 pill twice a day roughly 30 minutes prior to eating. I also prescribed an antinausea medicine called Zofran. You may take 1 pill twice a day as needed. Good oral hydration he is important. If lightheadedness, weakness, abdominal pain worsening significantly go to the emergency room. Follow-up with your PCP next week to discuss further testing options given chronicity of your symptoms. documented in this encounter Ordered Prescriptions Prescription Sig Dispensed Refills Start Date End Da te ondansetron (ZOFRAN) 4 mg tabletIndications:Nausea Take 1 Tablet by mouth every 12 hours as needed for up to 7 days for Nausea. 14 Tablet 05/18/2022 05/25/2022 pantoprazole (PROTONIX) 40 mg tabletIndications:Gastroe sophageal reflux disease, unspecified whether esophagitis present Take 1 Tablet by mouth 2 times daily for 14 days. 28 Tablet 05/18/2022 06/01/2022 documented in this encounter Progress Notes * Ruby Seo MA - 05/18/2022 1115 EDT CC/HPI: Pt c/o N/V/D, lightheadedness, headache, intermittent LLQ abdominal pain, bloating x 4 months, worse in the last 5 days Covid Screening: In the last 72 hours, has the patient had: New or unusual cough, shortness of breath, new nasal congestion, sore throat, fever, chills, body aches, or new loss of taste or smell without a reasonable alternative diagnosis*? (If yes, assign to ARC) NO In the past 10 days, has the patient had a positive Covid test OR a confirmed close Covid exposure (<6ft for > 15mins in 24hr period)? (if yes, assign to ARC, regardless of vaccination status) NO *may be determined by RN or in discussion with available provider (SUPERVISOR PLASTERING's and CCA's can defer to Charge Nurse to complete triage when appropriate) PCP: Trisha Jacobson * Jt Sullivan PA-C - 05/18/2022 1115 EDT [facility] Chief Complaint(s): Chief Complaint Patient presents with ??? Nausea ??? Emesis ??? Diarrhea Assessment & Plan: 1. Gastroesophageal reflux disease, unspecified whether esophagitis present pantoprazole (PROTONIX)40 mg tablet 2. Nausea ondansetron (ZOFRAN) 4 mg tablet 3. Loose stools History is consistent with poorly controlled GERD/dyspepsia. Will change PPI to twice daily pantoprazole 40mg. Also prescribed ondansetron for use as needed. Advised continued good hydration as well as solid food intake as tolerated. Recommended starting with bland diet and slowly advancing. If symptoms changing or clearly worsening recommended going to the ER. Otherwise recommended follow- up with PCP next week after trial of high-dose PPI to determine what further testing or referral may be needed. New Prescriptions ONDANSETRON (ZOFRAN) 4 MG TABLET Take 1 Tablet by mouth every 12 hours as needed for up to 7 days for Nausea. PANTOPRAZOLE (PROTONIX) 40 MG TABLET Take 1 Tablet by mouth 2 times daily for 14 days. HPI: Patient presents with heartburn, belching, sulfur taste in mouth, bloating and gas, nausea, occasional vomiting, loose stools, crampy lower abdominal pain most prominent in left lower quadrant. Symptoms have been present for about 4 months. In the last five days symptoms have been worse than baseline. She is feeling somewhat weak and having some lightheadedness. She has had minimal food intake t heather has been able to maintain good hydration. She takes omeprazole 40 mg daily. Above symptoms were temporarily well controlled when she was taking this medication twice daily however it was only covered by her insurance for daily use. Symptoms are not well controled with every day dosing. Fecal pathogen testing was performed a few months ago for above symptoms and was unremarkable. She has tried cutting gluten and dairy out of her diet since onset of symptoms without any clear improvement. Pepto-Bismol has been trialed and has been effective. She has a history of long QT syndrome in her chart however most recent ECG performed earlier this year did not demonstrate this abnormality. She has used ondansetron in the past which was effective and well-tolerated. She is having 2-3 loose stools per day for the last 5 days. Does not endorse melena, coffee-ground emesis or pj blood per rectum. ROS: Review of Systems Constitutional: Negative for fever. Respiratory: Negative for cough and shortness of breath. Cardiovascular: Negative for chest pain. Objective: Vitals and nursing notes reviewed Examination: BP (!) 178/85 Pulse 88 Temp 36.4 ??C (97.5 ??F) Comment (Src): scanner Resp 24 SpO2 99% Physical Exam Constitutional: Appearance: She is not ill-appearing. Cardiovascular: Rate and Rhythm: Normal rate and regular rhythm. Pulmonary: Effort: Pulmonary effort is normal. Breath sounds: Normal breath sounds. Abdominal: General: Bowel sounds are normal. There is no distension. Palpations: Abdomen is soft. There is no mass. Tenderness: There is no abdominal tenderness. There is no guarding or rebound. Skin: General: Skin is warm and dry. Neurological: Mental Status: She is alert. Data reviewed with patient (current and past results): Problem, medication, allergy list, recent visit notes and labs reviewed This note may be in part documented using voice dictation software. Please forgive any errors or omissions that may result from use of dictation. documented in this encounter Plan of Treatment Not on file documented as of this encounter Visit Diagnoses Diagnosis Gastroesophageal reflux disease, unspecified whether esophagitis present- Primary Nausea Nausea alone Loose stools Abnormal feces documented in this encounter Discontinued Medications Medication Sig Discontinue Reason Start Date End Da te omeprazole (PRILOSEC) 40 mg capsule Take by mouth daily. Alternate therapy 12/24/2021 05/18/2022 documented as of this encounter Care Teams Apartment Leasing Consultant Relationship Specialty Start Date End Date Trisha Jacobson APRN [address] [place] [phone] PCP - General 08/28/21 11/13/23 Whitley Sage MBBS [address] [place] [address], [address] [place] [address] Consulting Clinician Pulmonary Disease 05/01/22 documented as of this encounter
--- OUTSIDE RECORDS SUMMARY | 2024-07-15 21:48 | XMS_ITS | Encounter Summary ---
Author Organization [facility] Address [address] [place] [address] Care Team Providers Care Pick Pack Worker Name Role Phone Unknown, Provider Primary Care Provider Trihsa Jacobson APRN Primary Care Provider + Whitley Sage Unavailable Diane [address] Primary Care Provider [phone] Encounter Details Date Type Department Care Team (Late st Contact Info) Description 04/09/2021 Results Only Imaging [facility] [place] Radiology Results [address] [place], [place] [id number] Anish Newsome MD [address] [place] [phone] Social History Tobacco Use Types Packs/Day Years Used Date Smoking Tobacco: Never Assessed Sex and Gender Information Value Date Recorded Sex Assigned at Not on file Gender Identity Female 04/26/2022 9:31 EDT Sexual Orientation Not on file documented as of this encounter Plan of Treatment Not on file documented as of this encounter Procedures Procedure Name Priority Date/Time Associated Diagnosis Comments CT HEAD WO CONTRAST 04/09/2021 1 5:13 EDT EKG 12-LEAD 04/09/2021 13:59 EDT documented in this encounter Results * CT HEAD WO CONTRAST (04/09/2021 15:13 EDT) Anatomical Region Laterality Modality Head Computed Tomogra phy 04/09/2021 15:1 3 EDT Narrative 04/09/2021 15:13 EDT ? EXAM: CAT SCAN/HEAD WITHOUT CONTRAST ?EX. D/ (1500) ? CLINICAL INFORMATION: ? headache, nausea, dizziness ? PROCEDURE INFORMATION: ? Exam: CT Head Without Contrast ? Exam date and time: 04/09/2021 2:15 PM ? Age: 36 years old ? Clinical indication: Pain; Headache; Additional info: Headache, ? nausea, dizziness ? TECHNIQUE: ? Imaging protocol: Computed tomography of the head without ? contrast. ? Radiation optimization: All CT scans at this facility use at ? least one of these dose optimization techniques: automated ? exposure control; mA and/or kV adjustment per patient size ? (includes targeted exams where dose is matched to clinical ? indication); or iterative reconstruction. ? COMPARISON: ? No relevant prior studies available. ? FINDINGS: ? Brain: Normal. No hemorrhage. Unremarkable white matter. No mass ? effect. ? Cerebral ventricles: No ventriculomegaly. ? Paranasal sinuses: Visualized sinuses are unremarkable. No fluid ? levels. ? Mastoid air cells: Visualized mastoid air cells are well ? aerated. ? Bones/joints: Unremarkable. No acute fracture. ? Soft tissues: Unremarkable. ? IMPRESSION: ? No acute intracranial abnormality. ? REPORT SIGNED IN OTHER VENDOR SYSTEM 04/09/2021 ?Reported By: Lanette Zavala MD ? CC: ? Transcribed Date/Time: 04/09/2021 (1513) ? Color Weigher: ? Printed Date/Time: 04/09/2021 (8853) ? PAGE 1 ? Signed Report ? Procedure Note Lanette Zavala MD - 04/11/2021 EXAM: CAT SCAN/HEAD WITHOUT CONTRAST EX. D/ (1500) CLINICAL INFORMATION: headache, nausea, dizziness PROCEDURE INFORMATION: Exam: CT Head Without Contrast Exam date and time: 04/09/2021 2:15 PM Age: 36 years old Clinical indication: Pain; Headache; Additional info: Headache, nausea, dizziness TECHNIQUE: Imaging protocol: Computed tomography of the head without contrast. Radiation optimization: All CT scans at this facility use at least one of these dose optimization techniques: automated exposure control; mA and/or kV adjustment per patient size (includes targeted exams where dose is matched to clinical indication); or iterative reconstruction. COMPARISON: No relevant prior studies available. FINDINGS: Brain: Normal. No hemorrhage. Unremarkable white matter. No mass effect. Cerebral ventricles: No ventriculomegaly. Paranasal sinuses: Visualized sinuses are unremarkable. No fluid levels. Mastoid air cells: Visualized mastoid air cells are well aerated. Bones/joints: Unremarkable. No acute fracture. Soft tissues: Unremarkable. IMPRESSION: No acute intracranial abnormality. REPORT SIGNED IN OTHER VENDOR SYSTEM 04/09/2021 Reported By: Lanette Zavala MD CC: Transcribed Date/Time: 04/09/2021 (1512) Color Weigher: Printed Date/Time: 04/09/2021 (1513) PAGE 1 Signed Report Ansih Newsome MD IMG CT ORDERABLES * EKG 12-LEAD (04/09/2021 13:59 EDT) 04/09/2021 13:5 9 EDT Narrative [facility] - 04/09/2021 13:59 EDT ? [facility] ? Test Date: ?2021-04-09 13:59:36 Pat Name: ? CECILIA CONNELLY ?Department: ?Room: ? Gender: ? F ?Boiler Technician: ?? CB : ?1985 ? Requested By: Order Number: ?Reading MD: ?? Dion Lischke, MD ? Measurements Intervals ?[place] ? Rate: ? 75 ? P: ?39 KS: ? 136 ?QRS: ?23 QRSD: ? 94 ? T: ?36 QT: ? 412 ? QTc: ?460 ? Interpretive Statements Normal sinus rhythm No previous ECG available for comparison Electronically Signed On 04-10-2021 18:19:52 EDT by Dion Jeong MD [email or web address] Procedure Note Dion Jeong MD - 04/11/2021 [facility] Test Date: 2021-04-09 13:59:36 Pat Name: CECILIA CONNELLY Department: Room: Gender: F Boiler Technician: : 1985 Requested By: Order Number: Reading MD: Dion Jeong MD Measurements Intervals [place] Rate: 75 P: 39 KS: 136 QRS: 23 QRSD: 94 T: 36 QT: 412 QTc: 460 Interpretive Statements Normal sinus rhythm No previous ECG available for comparison Electronically Signed On 04-10-2021 18:19:52 EDT by Dion Jeong MD [email or web address] Anish Newsome MD CARDIAC ECG ORDERABL ES [facility] [address] [place] [address] documented in this encounter Visit Diagnoses Not on filedocumented in this encounter Additional Health Concerns Infection Onset Date Last Indicated Resolved Time R/O COVID-19 11/06/2023 11/06/2023 11/06/2023 18:3 2 EST documented as of this encounter Care Teams Pick Pack Worker Relationship Specialty Start Date End Date Unknown, Provider, PCP - General 01/26/09 08/27/21 Trisha Jacobson APRN [address] [facility] [address] PCP - General 08/28/21 11/13/[address] [place] [address] PCP - General Family Medicine - Primary Care 11/14/23 Whitley Sage MBBS [address] [place] [address], [address] [place] [address] Consulting Clinician Pulmonary Disease 05/01/22 documented as of this encounter
--- OUTSIDE RECORDS SUMMARY | 2024-07-15 21:48 | XMS_ITS | Encounter Summary ---
Author Organization [facility] Address [address] [place] [address] Care Team Providers Care Superintendent Plant Name Role Phone Unknown, Provider Primary Care Provider Encounter Details Date Type Department Care Team (Latest Contact Info) Description 07/06/2014 13:25 EDT - 07/06/2014 23:59 EDT Hospital Encounter [address] [address] Unknown, Provider, Discharge Disposition: Home or Self Care Social History Tobacco Use Types Packs/Day Years Used Date Smoking Tobacco: Never Assessed Sex and Gender Information Value Date Recorded Sex Assigned at Not on file Gender Identity Female 04/26/2022 9:31 EDT Sexual Orientation Not on file documented as of this encounter Discharge Disposition Disposition Code Departure Means Destination Home or Self Usp documented in this encounter Plan of Treatment Not on file documented as of this encounter Visit Diagnoses Not on filedocumented in this encounter Care Teams Superintendent Plant Relationship Specialty Start Date End Date Unknown, Provider, PCP - General 01/26/09 08/27/21 documented as of this encounter
--- OUTSIDE RECORDS SUMMARY | 2024-07-15 21:48 | XMS_ITS | Encounter Summary ---
Author Organization [facility] Address [address] [place] [address] Care Team Providers Care Appeals Analyst Name Role Phone Trisha Jacobson Hoa PANDYA Primary Care Provider + Encounter Details Date Type Department Care Team (Latest Contact Info) Description 08/28/2021 8:32 EST - 08/28/2021 23:59 EST Hospital Encounter [facility] [place] Discharge Disposition: Home or Self Care Social [...] No 08/28/2021 documented as of this encounter Medications at Time of Discharge Medication Sig Dispensed Refills Start Date End Date fluticasone propionate (FLONASE) 50 mcg/actuation nasal spray Instill 2 Sprays into both nostrils 2 times daily. lisinopriL (PRINIVIL) 40 mg tablet Take 1 Tablet by mouth daily. LORazepam (ATIVAN) 1 mg tablet Take 1 mg by mouth 2 times daily. BID PRN moxifloxacin (VIGAMOX) 0.5 % ophthalmic solution Place 1 Drop into the left eye 4 times daily. 1 mL 08/28/2021 acetylcysteine (NAC) 600 mg capsule Take 600 [...] Take 150 mg by mouth daily. 11/30/2022 cholecalciferol, Vitamin D3, 25 mcg (1,000 unit) tablet Take 1,000 Units by mouth daily. 02/10/2022 folic acid (FOLVITE) 1 mg tablet Take 1 mg by mouth daily. 02/10/2022 lamoTRIgine (LAMICTAL) 100 mg tablet Take 100 mg by mouth daily. 02/10/2022 magnesium oxide (MAG-OX) 400 mg (241.3 mg magnesium) tablet Take 2,000 mg by mouth 2 times daily. 11/08/2023 naproxen (NAPROSYN) 250 mg tablet Take by mouth 2 times daily. BID 02/10/2022 sertraline (ZOLOFT) 50 mg tablet Take 100 mg by mouth daily. 02/10/2022 documented as of this encounter Discharge Disposition Disposition Code Departure Means Destination Home or Self Care documented in this encounter Plan of Treatment Not on file documented as of this encounter Procedures Procedure Name Priority Date/Time Associated Diagnosis Comments CT OUTSIDE IMAGES MSK Routine 08/28/2021 8:32 EST documented in this encounter Results * CT OUTSIDE IMAGES MSK (08/28/2021 8:32 EST) Narrative 08/28/2021 8:32 EST This is a non-reportable exam. Provider Unknown MD YAN OTHER IMAGING OR DERABLES documented in this encounter Visit Diagnoses Not on filedocumented in this encounter Care Teams Appeals Analyst Relationship Specialty Start Date End Date Trisha Jacobson, PATROL GUARD [address] [place] [phone] PCP - General 08/28/21 11/13/23 documented as of this encounter
--- OUTSIDE RECORDS SUMMARY | 2024-07-15 21:48 | XMS_ITS | Encounter Summary ---
Author Organization [facility] Address [address] [place] [address] Care Team Providers Care Lock Operator Name Role Phone Trisha Jacobson APRN Primary Care Provider + Encounter Details Date Type Department Care Team ([facility] st Contact Info) Description 02/07/2022 Documentation Visit [facility] Therapy [address] [id number] Maulik Hrud, PT [address] [facility] [place] [address] Social History Tobacco Use Types Packs/Day Years [...] No 12/26/2021 documented as of this encounter Progress Notes * Maulik Hurd, PT - 02/07/2022 0917 EDT [facility] [place] [facility] Outpatient Rehabilitation Services [phone] Physical Therapy Discharge Not Seen Recently Therapy Diagnosis: Decreased functional mobility due to medial R knee pain Referring Clinician: Trisha Jacobson APRN Reporting Period: 01/19/22 Physical Therapy Program to Date: In summary, the program has included: LE strengthening exercises,patient education Goal Review: Short-Term Goals Timeframe: 02/16/22 The patient will be able to walk short distances without use of a cane with knee pain of 2/10 or less and no feelings of instability in order to more easily get around home. (Unknown if met) ?? Long-Term Goals Timeframe: 03/16/22 The patient will be able to ambulate 15 minutes without a cane and with knee pain of 1/10 or less in order to do things such as go shopping without difficulty. (Unknown if met) Discharge Reason: Called to discontinue therapy at this time and did not want to reschedule. Discharge patient at this time; future therapy will require a new physician's referral. documented in this encounter Plan of Treatment Not on file documented as of this encounter Visit Diagnoses Not on filedocumented in this encounter Care Teams Lock Operator Relationship Specialty Start Date End Date Trisha Jacobson APRN [address] [place] [address] PCP - General 08/28/21 11/13/23 documented as of this encounter
--- OUTSIDE RECORDS SUMMARY | 2024-07-15 21:48 | XMS_ITS | Encounter Summary ---
Author Organization [facility] Address [address] [place] [address] Care Team Providers Care Dental Instructor Name Role Phone Trisha Jacobson CINDER DUMP CRANE OPERATOR Primary Care Provider + Reason for Visit * Reason Comments New Patient Visit * Referral (Routine) - Authorization Not Required Specialty Diagnoses / Procedures Referred By Nakia anderson Referred To Contact Orthopedic Surgery Diagnoses Pain in right knee Trisha Jacobson, CINDER DUMP CRANE OPERATOR [address] [place] [address] [facility] [address] [place] [address] Referral ID Status Reason Start Date Expiration Date Visits Requested Visits Authorized [id number] Authorization Not Required 1 1 Encounter Details Date Type Department Care Team ([facility] Contact Info) Description 02/24/2022 15:00 EDT Office Visit [facility] [address], [address] [place] [address] Scarlet Rosen PA-C [address] [facility] [address] [place] [address] Right knee pain, unspecified chronicity (Primary Dx) Social History Tobacco Use Types [...] 15:00 EDT documented as of this encounter Last Filed Vital Signs Vital Sign Reading Time Taken Comments Blood Pressure - - Pulse 90 02/24/2022 1503 EDT Temperature 36.4 ??C (97.6 ??F) 02/24/2022 1503 EDT Respiratory Rate - - Oxygen Saturation 97% 02/24/2022 1503 EDT Inhaled Oxygen Concentration - - Weight - - Height - - Body Mass Index - - documented in this encounter Functional Status Functional Status Response Date of Assess ment Are you deaf or do you have serious difficulty h earing? No 12/26/2021 documented as of this encounter Progress Notes * Scarlet Rosen PA-C - 02/24/2022 1500 EDT Cecilia presents today for evaluation of her right knee. She was seen by her PCP on 01/04 for acute right knee pain. PT and MRI referrals were placed at a previous visit. The MRI was completed on 01/25.X-rays were completed on 12/22 showing no fracture, and an MRI was recommended. She was also seen at the ED on 12/26 for right knee pain. Per note, she had a twisting injury on 12/20. IMPRESSION 1. Mild tricompartment osteoarthritis. 2. No associated tear. 3. Mild to moderate knee effusion. CHIEF COMPLAINT: Right knee pain SUBJECTIVE: Cecilia Connelly is a 37 y.o. female who presents today with right knee pain. She was seen by her primary care, on 01/04/2022 for right knee pain. PT referral was placed, and an MRI was also ordered at that time. The MRI was completed on 01/25/2022. This revealed mild tricompartmental osteoarthritis, and a knee effusion. She states that she had a twisting injury, on 12/20/2021. She has noticedsome improvement in her pain. She did have a few visits with PT. Has been taking Tylenol. The past medical, family and social history have been reviewed in the patient chart. I spent time preparing in advance of the visit today, which included obtaining and reviewing prior history and notes from the primary care provider and/or referring providers, as well as reviewing any relevant prior imaging and tests, which I also independently interpreted today Past Medical History: Diagnosis Date ??? Asthma ??? Hypertension Social History Tobacco Use ??? Smoking status: Former Smoker Quit date: 2015 Years since quittin.4 Substance Use Topics ??? Alcohol use: Not on file History reviewed. No pertinent surgical history. Allergies Allergen Reactions ??? Azithromycin Current Outpatient Medications on File Prior to Visit Medication Sig Dispense Refill ??? acetaminophen (TYLENOL) 650 mg CR tablet Take 650 mg by mouth every 8 hours as needed. ??? acetylcysteine (NAC) 600 mg capsule Take 600 mg by mouth daily. ??? ADVAIR HFA 230-21 mcg/actuation inhaler ??? albuterol (ACCUNEB) 2.5 mg /3 mL (0.083 %) nebulizer solution Take 3 mL by nebulization every 4hours as needed for Wheezing. 1 Each 0 ??? albuterol 90 mcg/actuation inhaler Inhale 2 Puffs as directed every 4 hours as needed. ??? ALLERGARD GLOVES MISC by misc (non-drug; combo route) route. (Patient not taking: Reported on 02/10/2022) ??? aminocaproic acid (AMICAR) 500 mg tablet Take 1,000 mg by mouth. BID ??? ascorbic acid, vitamin C, (VITAMIN C) 500 mg tablet Take 500 mg by mouth daily. ??? buPROPion (WELLBUTRIN XL) 150 mg XL tablet Take 150 mg by mouth daily. (Patient not taking: Reported on 02/10/2022) ??? Cholecalciferol, Vitamin D3, 50 mcg capsule TAKE 2 CAPSULES BY MOUTH ONCE DAILY ??? fexofenadine (PRAVIN) 180 mg tablet Take 180 mg by mouth daily. ??? fluticasone propionate (FLONASE) 50 mcg/actuation nasal spray Instill 100 mcg into both nostrils 2 times daily. ??? glucosam/artur-msm1/C/osbaldo/bosw (OSTEO BI-FLEX TRIPLE STRENGTH ORAL) Take 2 Tablets by mouth daily. (Patient not taking: Reported on 02/23/2022) ??? glucosamine/chondr anguiano A sod (OSTEO BI-FLEX ORAL) Take by mouth 2 times daily. (Patient not taking: Reported on 02/23/2022) ??? ketotifen (ALAWAY) 0.025 % (0.035 %) ophthalmic solution Place 1 Drop into both eyes 2 times daily. (Patient not taking: Reported on 02/23/2022) ??? L-Methylfolate 15 mg tablet ??? Lactobacillus acidophilus (PROBIOTIC) 10 billion cell capsule Take by mouth daily. ??? lactobacillus rhamnosus, GG, (CULTURELLE) 10 billion cell capsule Take 1 capsule by mouth daily. (Patient not taking: Reported on 02/23/2022) ??? lactose-reduced food (NUTRITIONAL SUPPLEMENT ORAL) Take by mouth. ??? lamoTRIgine (LAMICTAL) 200 mg tablet TAKE 1 TABLET BY MOUTH ONCE DAILY CONTINUE TO MONITOR RASH ??? Lavender Oil oil by other route. ??? Leg Brace (KNEE STABILIZER) misc by misc (non-drug; combo route) route. Leg brace (Patient not taking: Reported on 02/23/2022) ??? lisdexamfetamine (VYVANSE) 10 mg capsule Take 10 mg by mouth daily. ??? lisinopriL (PRINIVIL) 40 mg tablet Take 40 mg by mouth daily. ??? LORazepam (ATIVAN) 1 mg tablet Take 1 mg by mouth 2 times daily. BID PRN ??? Magnesium Gluconate (MAG-G) 27 mg magnesium (500 mg) tablet Take 1,000 mg by mouth 2 times daily. ??? magnesium oxide (MAG-OX) 400 mg (241.3 mg magnesium) tablet Take 2,000 mg by mouth 2 times daily. (Patient not taking: Reported on 02/23/2022) ??? melatonin 5 mg tablet,disintegrating 2 tabs at hs ??? moxifloxacin (VIGAMOX) 0.5 % ophthalmic solution Place 1 Drop into the left eye 4 times daily. (Patient not taking: Reported on 09/07/2021) 1 mL 0 ??? Multivitamins with Minerals tablet tablet Take 3 Tablets by mouth daily. (Patient not taking: Reported on 02/23/2022) ??? naproxen (NAPROSYN) 500 mg tablet 1 tab twice daily ??? omeprazole (PRILOSEC) 40 mg capsule Take by mouth daily. ??? oxyCODONE (ROXICODONE) 5 mg immediate release tablet Take 1 Tablet by mouth every 6 hours as needed for up to 10 doses for Pain. Daily Max: 20 mg (Patient not taking: Reported on 02/10/2022) 10 Tablet 0 ??? oxygen-air delivery systems (HORIZON NASAL CPAP SYSTEM MISC) by misc (non- drug; combo route) route. ??? polyethylene glycol (MIRALAX) 17 gram/dose powder Take 17 g by mouth daily. (Patient not taking: Reported on 02/23/2022) ??? predniSONE (DELTASONE) 20 mg tablet Take 2 Tablets by mouth daily for 5 days. 10 Tablet 0 ??? sertraline (ZOLOFT) 100 mg tablet TAKE 1 TABLET BY MOUTH ONCE DAILY DIRECTED ??? UNABLE TO FIND Med Name: THC edibles ??? VITAMINS B COMPLEX tablet Take 1 Tablet by mouth 2 times daily. ??? VYVANSE 30 mg capsule TAKE 1 CAPSULE BY MOUTH IN THE MORNING ALONG WITH 10MG IN THE AFTERNOON No current facility-administered medications on file prior to visit. OBJECTIVE: Pulse 90 Temp 36.4 ??C (97.6 ??F) SpO2 97% On physical exam, the patient is found to be a pleasant and cooperative female who appears to be alert and oriented x 3. She is well-developed, well-nourished and in no significant distress. Breathing is unlabored. Skin is warm, pink and dry to inspection and palpation. Neurovascularly intact with good capillary refill. Sensation to light touch throughout the lower extreme intact. Upon inspection, there are no obvious areas of swelling, ecchymosis, joint deformity or atrophy. Range of motion ofthe knee between 0, 110 degrees today comfortably. Mild pain to palpation around the medial joint line. No other areas of tenderness palpation. Stable to varus valgus stress testing negative Raheel's, negative anterior drawer. Good strength quadriceps, hamstrings, hip flexion, extension, AB and adduction. No pain with hip rotation. Positive Sarika's. Positive bounce home. Prior imaging reviewed, listed above in HPI. ASSESSMENT: Osteoarthritis flare, early degenerative process PLAN: After reviewing the prior separately obtained patient history, imaging and tests, and performing my examination and evaluation, I counseled and educated the patient today about her knee pain. Likely a degenerative process here, with some early osteoarthritis, seen on the MRI. At this point, would recommend continued physical therapy, activity modification. I did discuss the possibility of injection with the patient, steroid versus Orthovisc. Patient feels she is improving, but would like to proceed with a steroid injection today. Follow-up as needed, and will call back if she needs anything. All questions were answered, she is pleased with the plan. Dr. Fernandez was the attending physician available in the clinic today if needed. A consultation was not required. This note was prepared using voice recognition software and the EMR. There may be inadvertent errors and omissions. MONY Gutierrez 02/28/2022 * Scarlet Rosen PA-C - 02/24/2022 1500 EDTAssociated Order(s): Large Joint Injection/Arthrocentesis: R knee Post-Procedure Diagnose(s): Right knee pain, unspecified chronicity Procedure: Large Joint Injection/Arthrocentesis: R knee on 02/24/2022 15:00 Indications: pain Details: 22 G needle, anterolateral approach Medications: 80 mg methylPREDNISolone ACETATE 80 mg/mL; 5 mL lidocaine (PF) 10 mg/mL (1 %) Outcome: tolerated well, no immediate complications Procedure, treatment alternatives, risks and benefits explained, specific risks discussed. Consent was given by the patient. Immediately prior to procedure a time out was called to verify the correctpatient, procedure, equipment, account support specialist and site/side marked as required. Patient was prepped and draped in the usual sterile fashion. documented in this encounter Plan of Treatment Not on file documented as of this encounter Procedures Procedure Name Priority Date/Time Associated Diagnosis Comments LARGE JOINT INJECTION/ARTHROCEN TESIS Routine 02/24/2022 15:00 EDT Right knee pain, unspecified chronicity documented in this encounter Results * AK ARTHROCENTESIS ASPIR&/INJ MAJOR JT/BURSA W/O US (02/24/2022 15:00 EDT) Narrative [facility] POINT OF CARE - 02/24/2022 15:00 EDT Scarlet Rosen PA-C ? 03/06/2022 14:17 Large Joint Injection/Arthrocentesis: R knee on 02/24/2022 15:00 Indications: pain Details: 22 G needle, anterolateral approach Medications: 80 mg methylPREDNISolone ACETATE 80 mg/mL; 5 mL lidocaine (PF) 10 mg/mL (1 %) Outcome: tolerated well, no immediate complications Procedure, treatment alternatives, risks and benefits explained, specific risks discussed. Consent was given by the patient. Immediately prior to procedure a time out was called to verify the correct patient, procedure, equipment, account support specialist and site/side marked as required. Patient was prepped and draped in the usual sterile fashion. Scarlet Rosen PA-C PROCEDURE/[place] SURGICAL ORDERABLES [facility] POINT OF [facility] documented in this encounter Visit Diagnoses Diagnosis Right knee pain, unspecified chronicity- Primary documented in this encounter Administered Medications Inactive Administered Medications - up to 3 most recent administrations Medication Order MAR Action Action Date Dose Rate Site lidocaine (PF) 10 mg/mL (1 %) injection 5 mL 5 mL, other, Once PRN Procedure, 1 dose, Starting on Sun02/24/22 at 1500, Until Sun02/24/22 at 1500, Routine Given 02/24/2022 15:00 EDT 5 mL methylPREDNISolone ACETATE (DEPO-MEDROL) injection 80 mg 80 mg, intra-articular, Once PRN Procedure, 1 dose, Starting on Sun02/24/22 at 1500, Until Sun02/24/22 at 1500, Routine Given 02/24/2022 15:00 EDT 80 mg documented in this encounter Care Teams Dental Instructor Relationship Specialty Start Date End Date Trisha Jacobson, CINDER DUMP CRANE OPERATOR [address] [place] [address] PCP - General 08/28/21 11/13/23 documented as of this encounter
--- OUTSIDE RECORDS SUMMARY | 2024-07-15 21:48 | XMS_ITS | Encounter Summary ---
Author Organization [facility] Address [address] [place] [address] Care Team Providers Care Projects Manager Name Role Phone Unknown, Provider Primary Care Provider Trisha Jacobson APRN Primary Care Provider + Whitley Sage Unavailable Diane Way Primary Care Provider Encounter Details Date Type Department Care Team (Late st Contact Info) Description 01/05/2021 Lab Requisition [facility]ology & Laboratory Medicine - [address] [address] Outr Resulting Lab, Provider Social History Tobacco Use Types Packs/Day Years Used Date Smoking Tobacco: Never Assessed Sex and Gender Information Value Date Recorded Sex Assigned at Not on file Gender Identity Female 04/26/2022 9:31 EDT Sexual Orientation Not on file documented as of this encounter Plan of Treatment Not on file documented as of this encounter Procedures Procedure Name Priority Date/Time Associated Diagnosis Comments ZZCOVID-19 TEST [facility] PCR Today 01/05/2021 10:30 EDT COVID-19 TESTING Routine 01/05/2021 10:3 0 EDT documented in this encounter Results * COVID-19 TEST [facility] PCR (01/05/2021 10:30 EDT) Swab ENTIRE NASOPHARYNX / Unknown 01/05/2021 10:30 EDT 01/05/2021 21:20 EDT Provider Outr Resulting Lab MICROBIOLOGY - GENERAL ORDERABLES [facility] [address] [place] [address] * COVID-19 TESTING (01/05/2021 10:30 EDT) COVID-19 rt-PCR Result Negative Negative 01/06/2021 16:59 EDT [facility] Comment: This test has not been FDA cleared or approved. This test has been authorized by FDA under an EUA for use by authorized laboratories. This test has been authorized only for detection of nucleic acid from 2019-nCoV, not for any other viruses or pathogens. This test is only authorized for the duration of the declaration that circumstances exist justifying the authorization of emergency use of in vitro diagnostic tests for detection and/or diagnosis of 2019-nCoV under section 564(b)(1) of Act, 21 U.S.C ?? 360bbb-3(b) (1), unless the authorization is terminated or revoked sooner. Negative results do not preclude 2019-nCoV infection and should not be used as the sole basis for treatment or other patient management decisions. Negative results must be combined with clinical observations, patient history, and epidemiological information. Testing was performed using the tiffany SARS-CoV-2 assay ([employer] on the Tiffany 6800 System Performing Lab Tiffany [address] [facility] 01/06/2021 16:59 EDT [facility] Swab 01/05/2021 10:3 0 EDT 01/05/2021 21:20 EDT Provider Outr Resulting Lab MICROBIOLOGY - GENERAL ORDERABLES Performing Organization Address City/[facility]/ZIP Co de Phone Number [facility] [address] [place] [address] documented in this encounter Visit Diagnoses Not on filedocumented in this encounter Additional Health Concerns Infection Onset Date Last Indicated Resolved Time R/O COVID-19 11/06/2023 11/06/2023 11/06/2023 18:3 2 EST documented as of this encounter Care Teams Projects Manager Relationship Specialty Start Date End Date Unknown, Provider, PCP - General 01/26/09 08/27/21 Trisha Jacobson APRN [address] [facility] [place] [address] PCP - General 08/28/21 11/13/[address] [place] [address] PCP - General Family Medicine - Primary Care 11/14/23 Whitley Sage MBBS [address] [place] [address], [address] [place] [address] Consulting Clinician Pulmonary Disease 05/01/22 documented as of this encounter
--- OUTSIDE RECORDS SUMMARY | 2024-07-15 21:48 | XMS_ITS | Encounter Summary ---
Author Organization [facility] Address [address] [place] [address] Care Team Providers Care Agile Business Analyst Name Role Phone Trisha Jacobson APRN Primary Care Provider + Encounter Details Date Type Department Care Team (Latest Contact Info) Description 12/26/2021 Travel Social History Tobacco Use Types Packs/Day [...] suspected to have Coronavirus/COVID-19? No / Unsure 12/26/2021 12:36 EDT documented as of this encounter Functional Status Functional Status Response Date of Assess ment Are you deaf or do you have serious difficulty h earing? No 12/26/2021 documented as of this encounter Plan of Treatment Not on file documented as of this encounter Visit Diagnoses Not on filedocumented in this encounter Care Teams Agile Business Analyst Relationship Specialty Start Date End Date Trisha Jacobson APRN [address] [place] [phone] PCP - General 08/28/21 11/13/23 documented as of this encounter
--- OUTSIDE RECORDS SUMMARY | 2024-07-15 21:48 | XMS_ITS | Encounter Summary ---
Author Organization [facility] Address [address] [place] [address] Care Team Providers Care Hot Tamale Worker Name Role Phone Trisha Jacobson APRN Primary Care Provider + Encounter Details Date Type Department Care Team (Latest Contact Info) Description 04/04/2022 Travel Social History Tobacco Use Types Packs/Day Years Used Date Smoking Tobacco: Former Cigarettes 1 2014 Alcohol Use Standard Drinks/Week Comments Not Currently [...] suspected to have Coronavirus/COVID-19? No / Unsure 04/04/2022 10:33 EDT documented as of this encounter Functional Status Functional Status Response Date of Assess ment Are you deaf or do you have serious difficulty h earing? No 12/26/2021 documented as of this encounter Plan of Treatment Not on file documented as of this encounter Visit Diagnoses Not on filedocumented in this encounter Care Teams Hot Tamale Worker Relationship Specialty Start Date End Date Trisha Jacobson APRN [address] [place] [phone] PCP - General 08/28/21 11/13/23 documented as of this encounter
--- OUTSIDE RECORDS SUMMARY | 2024-07-15 21:48 | XMS_ITS | Encounter Summary ---
Author Organization [facility] Address [address] [place] [address] Care Team Providers Care Facetor Name Role Phone Unknown, Provider Primary Care Provider [phone] Encounter Details Date Type Department Care Team ([facility] st Contact Info) Description 06/12/2007 Before PRISM Converted Visit (Maple) [facility] - Maple conversion [address] [place] [address] Abiel Hidalgo MD [address] [place] [phone] Social History Tobacco Use Types Packs/Day Years Used Date Smoking Tobacco: Never Assessed Sex and Gender Information Value Date Recorded Sex Assigned at Not on file Gender Identity Female 04/26/2022 9:31 EDT Sexual Orientation Not on file documented as of this encounter Progress Notes * Abiel Hidalgo MD - 07/23/2009 1820 EST [facility] PRO[facility]ESS/FOLLOWUP NOTE - 06/12/2007 SUBJECTIVE This patient is Cecilia Jackson, a 22female with a history of chronic otitis. Had bilateral tympanic membrane perforations, is complaining of bilateral ear infections over the last several weeks up to six months intermittently. Has been using her friends Cortisporin ear drops. That seems to be helping some. She has mild pain and some associated dizziness with the ear infections. She has no primary care physician andno insurance. PAST MEDICAL HISTORY Previous surgeries include previous PE tubes. MEDICATIONS Cortisporin. ALLERGIES No known drug allergies. FAMILY HISTORY Family history significant for diabetes. SOCIAL HISTORY The patient smokes 6-8 cigarettes per day. Single. Works as an [employer]. REVIEW OF SYSTEMS Significant for earache and hearing loss. Otherwise negative for multiple system review. PHYSICAL EXAMINATION General: Well-developed, well-nourished, overweight, cooperative young adult female in no acute distress. Normal voice. 5 feet 4 inches, weight 250, blood pressure 110/88, pulse 80, respirations 16, temperature 98.8. The face is normal, without lesions, no tenderness. Salivary glands are normal. Fac ialstrength is symmetric. Eye exam was normal. Ears: External ears normal. Canals contained some drainage. Binocular otomicroscopy was performed. The ears were suctclear. There are chronic bilateral TM perforations, but no drainage seen coming from the perforations. Antibiotic and steroid powder were applied. IMPRESSION Bilateral, chronic suppurative otitis with TM perforations. PLAN Will start patient on Cipro HC drops. Followup in two weeks or p.r.n. Signed by Abiel Hidalgo MD 06/28/2007 15:12 Abiel Hidalgo MD P Job ID [id number] T: 10:30 A/ms Doc ID [id number] cc: P Job ID [id number] A/ms Doc ID [id number] cc: documented in this encounter Plan of Treatment Not on file documented as of this encounter Visit Diagnoses Not on filedocumented in this encounter Care Teams Facetor Relationship Specialty Start Date End Date Unknown, Provider, PCP - General 01/26/09 08/27/21 documented as of this encounter
--- OUTSIDE RECORDS SUMMARY | 2024-07-15 21:48 | XMS_ITS | Encounter Summary ---
Author Organization [facility] Address [address] [place] [address] Care Team Providers Care Haircutter Name Role Phone Trisha Jacobson MUMTAZ Primary Care Provider + Reason for Visit * Reason Comments Knee Pain Encounter Details Date Type Department Care Team ([facility] Contact Info) Description 12/26/2021 17:29 EDT - 12/26/2021 18:52 EDT Emergency [facility] Emergency Department [address] [place] [id number] Mikie Min MD [address] [place] [address] Acute pain of right knee (Primary Dx); Osteoarthritis of right knee, unspecified osteoarthritis type Discharge Disposition: Home or Self Care Social [...] 12:36 EDT documented as of this encounter Last Filed Vital Signs Vital Sign Reading Time Taken Comments Blood Pressure 157/80 12/26/2021 1800 EDT Pulse 94 12/26/2021 1800 EDT Temperature 36.3 ??C (97.3 ??F) 12/26/2021 1234 EDT Respiratory Rate 20 12/26/2021 1800 EDT Oxygen Saturation 96% 12/26/2021 1800 EDT Inhaled Oxygen Concentration - - Weight - - Height 162.6 cm (5' 4) 12/26/2021 1236 EDT Body Mass Index - - documented in this encounter Functional Status Functional Status Response Date of Assess ment Are you deaf or do you have serious difficulty h earing? No 12/26/2021 documented as of this encounter Discharge Instructions * Discharge Instructions* Mikie Min MD - 12/26/2021 18:09 EDT As we discussed it is hard to delineate exactly where the pain is coming from . I did not appreciate any laxity to the ligaments which is reassuring although this does not rule out a partial tear of any of the internal ligaments of the knee. I recommend using an Bishop wrap around the clock except when bathing to help provide additional support to the knee. I would continue with both naproxen 500 mg twice a day and Tylenol 1000 mg every 6 hours. You may find some relief by applying ice to the area for 15 to 20 minutes as often as necessary. I would also try to use the crutches to avoid bearing any weight on the knee. Finally for severe pain you may take one of the oxycodone tablets every 6 hours. Please be aware that this is a narcotic and may cause drowsiness, constipation, and may be addictive. You should take only the smallest amount necessary to make your pain bearable. You should not drive while taking this medication. I would also try to save this for bedtime use. I agree with attempting PT as prescribed by your PCP. Ultimately you may need an MRI to fully delineate the extent of the injury. As we discussed your x-ray did show fairly advanced arthritis which is likely complicating the picture and delaying healing. Please arrange a follow-up with your primary care provider in the next week or 2. documented in this encounter Medications at Time [...] eye 4 times daily. 1 mL 08/28/2021 VITAMINS B COMPLEX tablet Take 1 Tablet by mouth 2 times daily. 11/15/2021 acetylcysteine (NAC) 600 mg capsule Take 600 [...] by mouth 2 times daily. BID 02/10/2022 omeprazole (PRILOSEC) 40 mg capsule Take by mouth daily. 12/24/20212021 oxyCODONE (ROXICODONE) 5 mg immediate release tablet Take 1 Tablet by mouth every 6 hours as needed for up to 10 doses for Pain. Daily Max: 20 mg 10 Tablet 12/26/2021 04/04/2022 sertraline (ZOLOFT) 100 mg tablet TAKE 1 TABLET BY MOUTH ONCE DAILY DIRECTED 11/15/2021 02/01/2023 sertraline (ZOLOFT) 50 mg tablet Take 100 mg by mouth daily. 02/10/2022 documented as of this encounter Ordered Prescriptions Prescription Sig Dispensed Refills Start Date End Da te oxyCODONE (ROXICODONE) 5 mg immediate release tablet Take 1 Tablet by mouth every 6 hours as needed for up to 10 doses for Pain. Daily Max: 20 mg 10 Tablet 12/26/2021 04/04/2022 documented in this encounter Discharge Disposition Disposition Code Departure Means Destination Home or Self Senior Living documented in this encounter ED Notes * Mikie Min MD - 12/26/2021 1734 EDT Emergency Department Visit Assessment and ED Course 36-year-old female presenting with right knee pain after an apparent twisting episode in the showeron 20 December. Exam is significantly limited by body habitus although no overt outward signs of trauma. There is also no overt ligamentous laxity. I reviewed the x-rays from the . She did not have an effusion at that time. She does have moderately advanced osteoarthritis which is likely adding to her delayed healing. I recommend that she continue with her naproxen and Tylenol. I have advised her to use an Bishop wrap around the clock. She was fitted for crutches to help take some weight off of the knee although had some difficulty using them. She is working with her PCP to arrange some physical therapy. Finally I have provided her with a very limited number of oxycodone for severe breakthrough pain. Opiate consent signed. She is advised to follow-up with her PCP. See discharge instructions Final diagnoses: Acute pain of right knee Osteoarthritis of right knee, unspecified osteoarthritis type Disposition: Discharged Chief complaint: Right knee pain HPI Cecilia Connelly is a 36 y.o. female with a history of morbid obesity presenting today complaining of severe right knee pain. Patient states that on December 20 she was in the shower when she injured the knee. She thinks she may have twisted it but is not entirely sure. She had significant pain in the knee since that time. Her PCP ordered an x-ray which was performed on the and did not reveal any acute fractures or effusions. She was noted to have moderately advanced tricompartmental osteoarthritis. Patient has been taking naproxen 500 mg twice a day as well as Tylenol. She has been using a cane. She is intermittently used an Bishop wrap. She states she spoke with her PCP has referred her to PT. Patient states that the pain is unbearable and impairing her mobility. Any amount of movement causes worse pain. Pain is primarily located along the medial aspect of the knee. History was provided by: Patient Patient's pertinent PMH, FH, SH were reviewed and edited as necessary. ROS A focused review of systems was performed. Pertinent positives and negatives as noted in HPI. Physical Exam BP (!) 157/80 Pulse 94 Temp 36.3 ??C (97.3 ??F) Resp 20 Ht 162.6 cm (64) SpO2 96% A medical screening exam was performed. Physical Exam Const: Patient resting comfortably in no acute distress Head: Atraumatic. Normocephalic. Neck: Normal range of motion. Pulm: No respiratory distress CV: Tachycardic regular rhythm and rate Musculoskeletal exam was limited to the right lower extremity. Exam is significantly impaired by the patient's body habitus. Outward appearance of the knee is unremarkable and that she has no erythema or ecchymosis. It is difficult to assess whether or not the knee is swollen. Unable to assess whether there is an effusion. She does not appear to have tenderness over the patella. There is no tenderness over the tibial plateau. There is some tenderness of both the medial and lateral aspects of the knee. Mobility was significantly impaired due to pain. She was able to flex it to about 20 degreeswhile wincing. I did not appreciate any major ligamentous laxity. Drawer signs again were limited but appear to be intact. Distal pulses and sensation were intact. Neuro: Alert. Speech is clear. Laboratory results independently reviewed. Procedures Procedures * Gurdeep Chaves RN - 12/26/2021 1233 EDT Patient presents with right knee pain sustained one week ago after slipping in the shower. Patient had an xray done which showed no fracture. Here for worsening pain. documented in this encounter Plan of Treatment Not on file documented as of this encounter Visit Diagnoses Diagnosis Acute pain of right knee- Primary Osteoarthritis of right knee, unspecified osteoarthritis type documented in this encounter Care Teams Haircutter Relationship Specialty Start Date End Date Trisha Jacobson APRN [address] [place] [address] PCP - General 08/28/21 11/13/23 documented as of this encounter
--- OUTSIDE RECORDS SUMMARY | 2024-07-15 21:48 | XMS_ITS | Encounter Summary ---
Author Organization [facility] Address [address] [place] [address] Care Team Providers Care Desktop Publishing Operator Name Role Phone Trisha Jacobson MUMTAZ Primary Care Provider + Encounter Details Date Type Department Care Team ([facility] st Contact Info) Description 02/10/2022 Abstract [facility] [place] [address] [place] [id number] Whitley Sage MBBS [address] [facility], [facility] [place] [address] [place] [address] Social History Tobacco Use Types Packs/Day Years [...] as of this encounter Progress Notes * Elina White MA - 02/10/2022 1132 EDT Chart abstraction taken from fax referral from [facility] (Trisha Jacobson).Patient is being referred for Asthma, moderate persistent. Patient is not scheduled yet. ELINA WHITE MA 02/10/2022 11:35 documented in this encounter Plan of Treatment Not on file documented as of this encounter Visit Diagnoses Not on filedocumented in this encounter Historical Medications * This list may reflect changes made after this encounter. Medication Sig Dispensed Refills Start Date End Date UNABLE TO FIND Med Name: THC edibles Leg Brace (KNEE STABILIZER) misc by misc (non-drug; combo route) route. Leg brace fexofenadine (PRAVIN) 180 mg tablet Take 1 Tablet by mouth daily. Magnesium Gluconate 27 mg magnesium (500 mg) tablet Take 1,000 mg by mouth 2 times daily. ketotifen (ZADITOR) 0.025 % (0.035 %) ophthalmic solution Place 1 Drop into both eyes 2 times daily. Multivitamins with Minerals tablet tablet Take 3 Tablets by mouth daily. oxygen-air delivery systems (HORIZON NASAL CPAP SYSTEM MISC) by misc (non-drug; combo route) route. glucosam/artur-msm1/C/osbaldo /bosw (OSTEO BI-FLEX TRIPLE STRENGTH ORAL) Take 2 Tablets by mouth daily. 11/30/2022 polyethylene glycol (MIRALAX) 17 gram/dose powder Take 17 g by mouth daily. 04/04/2022 Lactobacillus acidophilus (PROBIOTIC) 10 billion cell capsule Take by mouth daily. 024 lactose-reduced food (NUTRITIONAL SUPPLEMENT ORAL) Take by mouth. 11/08/2023 glucosamine/chondr anguiano A sod (OSTEO BI-FLEX ORAL) Take by mouth 2 times daily. 11/08/2023 added in this encounter Care Teams Desktop Publishing Operator Relationship Specialty Start Date End Date Trisha Jacobson APRN [address] [place] [phone] PCP - General 08/28/21 11/13/23 documented as of this encounter
--- OUTSIDE RECORDS SUMMARY | 2024-07-15 21:48 | XMS_ITS | Encounter Summary ---
Author Organization [facility] Address [address] [place] [address] Care Team Providers Care Human Resources Services Specialist Name Role Phone Unknown, Provider Primary Care Provider Trisha Jacobson APRN Primary Care Provider + Whitley Sage Unavailable Diane Way Primary Care Provider [phone] Encounter Details Date Type Department Care Team (Late st Contact Info) Description 05/05/2020 Lab Requisition [facility] Pathology & Laboratory Medicine - [address] [address] Outr Resulting Lab, Provider Social History Tobacco [...] Procedure Name Priority Date/Time Associated Diagnosis Comments FECAL BACTERIAL PATHOGENS BY PCR Routine 05/05/2020 14:19 EDT documented in this encounter Results * FECAL BACTERIAL PATHOGENS BY PCR (05/05/2020 14:19 EDT) Salmonella PCR Negative Negative 05/06/2020 10:44 EDT [facility] Shigella/Enteroin vasive E. coli Negative Negative 05/06/2020 10:44 EDT [facility] HN LAB CAMPYLOBACTER PCR Negative Negative 05/06/2020 10:44 EDT [facility] Shiga Toxin PCR Negative Negative 0 10:44 EDT [facility] Feces SPECIMEN FROM RECTUM / Unknown 05/05/2020 14:19 EDT 05/05/2020 22:47 EDT Provider Outr Resulting Lab MICROBIOLOGY - GENERAL ORDERABLES [facility] [address] [place] [address] documented in this encounter Visit Diagnoses Not on filedocumented in this encounter Additional Health Concerns Infection Onset Date Last Indicated Resolved Time R/O COVID-19 11/06/2023 11/06/2023 11/06/2023 18:3 2 EST documented as of this encounter Care Teams Human Resources Services Specialist Relationship Specialty Start Date End Date Unknown, Provider, PCP - General 01/26/09 08/27/21 Trisha Jacobson APRN [address] [place] [address] PCP - General 08/28/21 11/13/[address] [place] [address] PCP - General Family Medicine - Primary Care 11/14/23 Whitley Sage MBBS [address] [place] [address], [address] [place] [address] Consulting Clinician Pulmonary Disease 05/01/22 documented as of this encounter
--- OUTSIDE RECORDS SUMMARY | 2024-07-15 21:48 | XMS_ITS | Encounter Summary ---
Author Organization [facility] Address [address] [place] [address] Care Team Providers Care Utilities Manager Name Role Phone Unknown, Provider Primary Care Provider [phone] Encounter Details Date Type Department Care Team ([facility] st Contact Info) Description 07/06/2014 Results Only [facility] Laboratory Services - [facility] ([address] [id number] Rey Ley MD Social History Tobacco Use Types Packs/Day Years Used Date Smoking Tobacco: Never Assessed Sex and Gender Information Value Date Recorded Sex Assigned at Not on file Gender Identity Female 04/26/2022 9:31 EDT Sexual Orientation Not on file documented as of this encounter Plan of Treatment Not on file documented as of this encounter Procedures Procedure Name Priority Date/Time Associated Diagnosis Comments PAP TEST- RESULT ONLY Routine 07/06/2014 0:00 EDT documented in this encounter Results * PAP TEST- RESULT ONLY (07/06/2014 0:00 EDT) Pathology Report: CYTOPATHOLOGY REPORT Reports generated via electronic interface contain original data; however they are lacking the format of the original report. Caution should be taken when reading/interpreti ng unformatted reports. Name: ? LOULOUCECILIA HADLEY ? Accession #: ? [id number] ? : ? 1985 (Age: 29) ??F ?Collect Date: ? 07/06/2014 ? Location: ? [facility] ? Receive Date: ? 07/07/2014 ? Provider: REY LEY MD Copy to: ? Final Report SPECIMEN ADEQUACY ? Satisfactory for Evaluation - transformation zone component present GENERAL CATEGORIZATION ? Epithelial Cell Abnormality INTERPRETATION ? Squamous Cell Abnormality - Atypical squamous cells, undetermined significance (ASC-US). EDUCATIONAL NOTES/RECOMMENDATI ONS ? FORMERLY [facility] recommends following ASCCP's 2012 Updated Consensus Guidelines for the Management of Abnormal Cervical Cancer Screening Tests and Cancer Precursors (JLGTD, 2013; 17(5):S1-S27). ??Consensus guidelines are available online at www.asccp.org. Last Menstrual Period: 04/2014 Menstrual/Pregnanc y Status: ?? Specimen/Source: ??Pap Test, Cervix/Endocervix, ThinPrep Imaging System with manual evaluation Document reviewed and electronically signed by: ? PENNIE RHODES MD ? Report ??Date: 07/13/2014 15:48 HPV with Pap Test ? Date Ordered: ? 07/13/2014 ? Status: ?? Signed Out ?Date Complete: ? 07/15/2014 ? By: ??System Interface ? Date Reported: ? 07/15/2014 ? Interpretation RESULT: Negative for HPV. No E6 or E7 mRNA is detected from HPV types 16,18,31,33,35, 39,45,51,52,56,58, 59,66, and 68 by commercial credit reviewer mediated amplification. Comments Document reviewed and electronically signed by: ? System Interface ? Report date: 07/15/2014 By the signature above, the attending physician certifies that he/she has personally conducted a gross and/or microscopic examination of the described specimens and rendered or confirmed the above diagnosis. End of Report OFELIA PATEL 07/06/2014 07/07/2014 Rey Ley MD PATHOLOGY ORDERABLES Performing Organization Address City/State/[facility] Co de Phone Number [facility] [address] [place] [address] documented in this encounter Visit Diagnoses Not on filedocumented in this encounter Care Teams Utilities Manager Relationship Specialty Start Date End Date Unknown, Provider, PCP - General 01/26/09 08/27/21 documented as of this encounter
--- OUTSIDE RECORDS SUMMARY | 2024-07-15 21:48 | XMS_ITS | Encounter Summary ---
Author Organization [facility] Address [address] [place] [address] Care Team Providers Care Show Dog Trainer Name Role Phone JacobsonDanyelbraden Camara APRN Primary Care Provider + Reason for Referral * Test (Routine/Next Available) - Specialty Report Received Specialty Diagnoses / Procedures [facility] Referred To Contact Diagnoses Uncomplicated asthma, unspecified asthma severity, unspecified whether persistent Procedures PULMONARY FUNCTION TESTING Whitley Sage MBBS [address] [address] Referral ID Status Reason Start Date Expiration Date V isits Requested Visits Authorized [id number] Specialty Report Received 02/16/2022 1 1 Encounter Details Date Type Department Care Team (Late st Contact Info) Description 02/16/2022 Orders Only [facility] Pulmonology [address] [facility] [place] [address] Whitley Sage MBBS [address] [address] Uncomplicated asthma, unspecified asthma severity, unspecified whether persistent (Primary Dx) Social History Tobacco Use Types [...] as of this encounter Progress Notes * Whitley Sage MBBS - 02/16/2022 1025 EDT PFT ordered to be done before the initial Pulmonary visit documented in this encounter Plan of Treatment Not on file documented as of this encounter Results * PULMONARY FUNCTION TESTING (03/30/2022 7:20 EDT) 03/30/2022 7:20 EDT Whitley WHITMAN PFT O RDERABLES [facility] PULMONARY FUNCTION TESTING documented in this encounter Visit Diagnoses Diagnosis Uncomplicated asthma, unspecified asthma severity, unspecified whether persistent- Primary documented in this encounter Care Teams Show Dog Trainer Relationship Specialty Start Date End Date Trisha Jacobson APRN [address] [place] [phone] PCP - General 08/28/21 11/13/23 documented as of this encounter
--- OUTSIDE RECORDS SUMMARY | 2024-07-15 21:48 | XMS_ITS | Encounter Summary ---
Author Organization [facility] Address [address] [place] [address] Care Team Providers Care Assembler Brazer Name Role Phone Trisha Jacobson MUMTAZ Primary Care Provider + Reason for Visit * Reason Comments Follow-up Follow up for Cornea l abrasion and Subconjunctival hemorrhage - Left eye Encounter Details Date Type Department Care Team ([facility] Contact Info) Description 09/07/2021 15:30 EST Office Visit [facility] Ophthalmology [facility] [address] [place] [address] Sha Andrew MD [address] [place] [phone] Social History Tobacco Use Types Packs/Day Years [...] No 08/28/2021 documented as of this encounter Patient Instructions * Patient Instructions* Sha Andrew MD - 09/07/2021 15:30 EST Images from the original note were not included. USE: Lubricant eye drops, also called artificial tears Brands include: Refresh, Systane, Theratears, Soothe, Retaine, and Genteal ?? DO NOT use Visine or Clear Eyes ?? 1 drop each eye 2-3 times a day documented in this encounter Progress Notes * Sha Andrew MD - 09/07/2021 1530 EST Chief Complaint Patient presents with ??? Follow-up Follow up for Corneal abrasion and Subconjunctival hemorrhage - Left eye HPI The patient is a 36 y.o. female here for follow up of corneal abrasion/subconjunctival hemorrhage, left eye. She reports both eyes have been dry, itchy,& burning with FB sensation and eye strain. Right Eye: Dryness, Itching, Burning, Gritty/Foreign Body sensation, Tired, Glare or Light Sensitivity Left Eye: Dryness, Itching, Burning, Gritty/Foreign Body sensation, Tired, Glare or Light Sensitivity Visual Aid: Glasses Current Rx Age Location: Pain: 0 - No pain Quality: Severity: Duration: Timing: Lasts: Context: She reports she has finished Vigamox as directed. Both eyes have been very itchy and dry. The eyes burn and feel gritty. The eyes feel strained. No pain in the eyes. Modifying factors: Associated Signs & Symptoms: Attestation: ROS Constitutional: NL ENT/Mouth Cardiovascular: Respiratory: Gastrointestinal: Genitourinary: Musculoskeletal: Integumentary: Neurologic: Psychiatric: Endocrine: Hematologic: Immunologic: Lance Crewmember/Mlrs Sergeant: Exposures: None Other: Attestation: Base Eye Exam Visual Acuity (Snellen - Linear) Right Left Dist cc 20/20 -1 20/20 -2 Correction: Glasses Neuro/Psych Oriented x3: Yes Mood/Affect: Normal Slit Lamp and Fundus Exam Slit Lamp Exam Right Left Lids/Lashes Normal Normal Conjunctiva/Sclera White and quiet White and quiet Cornea Clear Clear Anterior Chamber Deep and quiet Deep and quiet Iris Round and reactive Round and reactive Lens Clear Clear DIAGNOSTIC TESTING/PROCEDURES: IMPRESSION & PLAN: 1. Corneal abrasion, left eye Improved Stop vigamox Return PRN 2. Dry eye syndrome, both eyes -Discussed contributing factors -Recommend proactive use of artificial tears 2-4 times daily I have reviewed the patient's past medical, family, social and surgical history. I have also reviewed the patient's medications, allergies, and problem list. I performed my own HPI and have reviewed the [employer]'s ROS as well. I completed this exam personally. Sha Andrew MD I am scribing for Sha Andrew MD, while he is personally performing the service. STEVE Hager Patient Education Topic: dry eyes Method: Verbal Taught to: Patient Barriers: None Outcomes: independent Signature: Sha Andrew MD documented in this encounter Plan of Treatment Not on file documented as of this encounter Visit Diagnoses Diagnosis Abrasion of left cornea, subsequent encounter- Primary Dry eye Tear film insufficiency, unspecified documented in this encounter Eye Exam Visual Acuity (Snellen - Linear) Right eye Left eye Dist cc 20/20 -1 20/20 -2 Correction: Glasses Neuro/Psych Oriented x3: Yes Mood/Affect: Normal Slit Lamp Exam Right eye Left eye Lids/Lashes Normal Normal Conjunctiva/Sclera White and quiet White and edwardo et Cornea Clear Clear Anterior Chamber Deep and quiet Deep and quiet Iris Round and reactive Round and harjit ctive Lens Clear Clear Care Teams Assembler Brazer Relationship Specialty Start Date End Date Trisha Jacobson, YARDER [address] [facility] [place] [address] PCP - General 08/28/21 11/13/23 documented as of this encounter
--- OUTSIDE RECORDS SUMMARY | 2024-07-15 21:48 | XMS_ITS | Encounter Summary ---
Author Organization [facility] Address [address] [place] [address] Care Team Providers Care Dispatch Specialist Name Role Phone Trisha Jacobson APRN Primary Care Provider + Reason for Referral * Test (Routine/Next Available) - Specialty Report Received Specialty Diagnoses / Procedures Referred By Nakia anderson Referred To Contact Diagnoses Uncomplicated asthma, unspecified asthma severity, unspecified whether persistent Procedures PULMONARY FUNCTION TESTING Whitley Sage MBBS [address] [address] Referral ID Status Reason Start Date Expiration Date V isits Requested Visits Authorized [id number] Specialty Report Received 02/16/2022 1 1 Reason for Visit * Test (Routine/Next Available) - Specialty Report Received Specialty Diagnoses / Procedures Referred By Nakia anderson Referred To Contact Diagnoses Uncomplicated asthma, unspecified asthma severity, unspecified whether persistent Procedures PULMONARY FUNCTION TESTING Whitley Sage MBBS [address] [address] Referral ID Status Reason Start Date Expiration Date V isits Requested Visits Authorized [id number] Specialty Report Received 02/16/2022 1 1 Encounter Details Date Type Department Care Team (Latest Contact Info) Description 03/30/2022 7:07 EDT - 03/30/2022 23:59 EDT Hospital Encounter [facility] [place] [address] [place] [address] Pulm Lab, [facility] Pft & Rt Uncomplicated asthma, unspecified asthma severity, unspecified whether persistent Discharge Disposition: Home or Self Care Social [...] oil by other route. 2 pills at [employer] (KNEE STABILIZER) misc by misc [...] Take 150 mg by mouth daily. 11/30/2022 glucosam/artur-msm1/C/m ang/bosw (OSTEO BI-FLEX TRIPLE STRENGTH ORAL) [...] or Self Care documented in this encounter Progress Notes * Laura Haley RT - 03/30/2022 0715 EDT Patient is present for PFT appointment. Patient gave good effort. No adverse effects noted. documented in this encounter Plan of Treatment Not on file documented as of this encounter Procedures Procedure Name Priority Date/Time Associated Diagnosis Comments PULMONARY FUNCTION TESTING Routine 03/30/2022 7:20 EDT Uncomplicated asthma, unspecified asthma severity, unspecified whether persistent documented in this encounter Results * PULMONARY FUNCTION TESTING (03/30/2022 7:20 EDT) 03/30/2022 7:20 EDT Whitley WHITMAN PFT O RDERABLES [facility] PULMONARY FUNCTION TESTING documented in this encounter Visit Diagnoses Diagnosis Uncomplicated asthma, unspecified asthma severity, unspecified whether persistent documented in this encounter Care Teams Dispatch Specialist Relationship Specialty Start Date End Date Trisha Jacobson APRN [address] [place] [address] PCP - General 08/28/21 11/13/23 documented as of this encounter
--- OUTSIDE RECORDS SUMMARY | 2024-07-15 21:48 | XMS_ITS | Encounter Summary ---
Author Organization [facility] Address [address] [place] [address] Care Team Providers Care Inspector Fabric Name Role Phone Trisha Jacobson APRN Primary Care Provider + Reason for Referral * Radiology Services (Routine/Next Available) - Authorization Not Required Specialty Diagnoses / Procedures Referred By Contac t Referred To Contact Diagnoses Pain in right knee Procedures XR KNEE RIGHT 3 VIEWS Trisha Jacobson APRN [address] [place] [address] [facility] Referral ID Status Reason Start Date Expiration Date Visits Requested Visits Authorized [id number] Authorization Not Required 12/21/2021 1 1 Reason for Visit * Radiology Services (Routine/Next Available) - Authorization Not Required Specialty Diagnoses / Procedures Referred By Nakia anderson Referred To Contact Diagnoses Pain in right knee Procedures XR KNEE RIGHT 3 VIEWS Trisha Jacobson APRN [address] [place] [address] [facility] Referral ID Status Reason Start Date Expiration Date Visits Requested Visits Authorized [id number] Authorization Not Required 12/21/2021 1 1 Encounter Details Date Type Department Care Team (Latest Contact Info) Description 12/22/2021 15:04 EDT - 12/22/2021 23:59 EDT Hospital Encounter [facility] Xray [address] [place] [address] Pain in right knee Discharge Disposition: Home or Self Care Social [...] 2 times daily. BID 02/10/2022 sertraline (ZOLOFT) 100 mg tablet TAKE 1 [...] Name Priority Date/Time Associated Diagnosis Comments XR KNEE RIGHT 3 VIEWS Routine 12/22/2021 15:46 EDT Pain in right knee documented in this encounter Results * XR KNEE RIGHT 3 VIEWS (12/22/2021 15:46 EDT) Anatomical Region Laterality Modality Lower Extremities Right Computed Radio graphy 12/22/2021 16:1 6 EDT Impressions 12/22/2021 16:16 EDT No fracture visible. MR recommended if there is persistent pain or difficulty weightbearing. Narrative 12/22/2021 16:16 EDT XR KNEE RIGHT 3 VIEWS ?? Signs and Symptoms/Comments: ??PATIENT W/INJURY WHILE SHOWERING 2 DAYS AGO. DIFFICULTY WEIGHT BEARING Comparison: None. FINDINGS: Right knee: 3 views were performed. Bones: No acute fracture or malalignment. Degenerative changes: Moderate tricompartmental osteoarthrosis, advanced for age. Soft tissues: No significant joint effusion visible, however the lateral view is somewhat rotated, reducing sensitivity. Procedure Note Boom Saul MD - 12/22/2021 XR KNEE RIGHT 3 VIEWS Signs and Symptoms/Comments: PATIENT W/INJURY WHILE SHOWERING 2 DAYS AGO.DIFFICULTY WEIGHT BEARING Comparison: None. FINDINGS: Right knee: 3 views were performed. Bones: No acute fracture or malalignment. Degenerative changes: Moderate tricompartmental osteoarthrosis, advancedfor age. Soft tissues: No significant joint effusion visible, however the lateralview is somewhat rotated, reducing sensitivity. IMPRESSION No fracture visible. MR recommended if there is persistent pain ordifficulty weightbearing. Trisha Jacobson APRN IMG DIAGNOSTIC I MAGING ORDERABLES documented in this encounter Visit Diagnoses Diagnosis Pain in right knee Pain in joint, lower leg documented in this encounter Care Teams Inspector Fabric Relationship Specialty Start Date End Date Trisha Jacobson, SAMPLE BOX MAKER [address] [place] [phone] PCP - General 08/28/21 11/13/23 documented as of this encounter
--- OUTSIDE RECORDS SUMMARY | 2024-07-15 21:48 | XMS_ITS | Encounter Summary ---
Author Organization [facility] Address [address] [place] [address] Care Team Providers Care Route Vending Machine Servicer Name Role Phone Trisha Jacobson MUMTAZ Primary Care Provider + Encounter Details Date Type Department Care Team (Latest Contact Info) Description 01/09/2022 Transcribe Orders [facility] - Main [address] [id number] Shauna Kramer MD [address] [place] [address] Hypomagnesemia (Primary Dx); Vitamin D deficiency; Restless legs Social History [...] documented as of this encounter Results * FERRITIN (06/29/2022 13:21 EDT) Ferritin 18 11 - 264 ng/mL 06/29/2022 14:57 EDT [facility] Blood VENOUS BLOOD / Unknown Venipuncture / Unknown 06/29/2022 13:21 EDT 06/29/2022 13:32 EDT Narrative [facility] - 06/29/2022 14:57 EDT The results of this assay can be falsely lowered due to the consumption of Biotin. Shauna Kramer MD CHEMISTRY & BLOOD GA S ORDERABLES Performing Organization Address City/[facility]/ZIP Co de Phone Number [facility] [address] [place] [address] * VITAMIN B12 (06/29/2022 13:21 EDT) Vitamin B12 647 211 - 911 pg/mL 06/29/2022 14:57 EDT [facility] Blood VENOUS BLOOD / Unknown Venipuncture / Unknown 06/29/2022 13:21 EDT 06/29/2022 13:32 EDT Narrative [facility] - 06/29/2022 14:57 EDT The results of this assay can be falsely elevated due to the consumption of Biotin. Shauna Kramer MD CHEMISTRY & BLOOD GA S ORDERABLES Performing Organization Address [facility] Co de Phone Number [facility] [address] [place] [address] * VITAMIN D (25,OH) (06/29/2022 13:21 EDT) 25OH Vitamin D Tot 43 30 - 100 ng/mL 06/29/2022 14:57 EDT [facility] Blood VENOUS BLOOD / Unknown Venipuncture / Unknown 06/29/2022 13:21 EDT 06/29/2022 13:32 EDT Shauna Kramer MD CHEMISTRY & BLOOD GA S ORDERABLES Performing Organization Address City/[facility] Co de Phone Number [facility] [address] [place] [address] * MAGNESIUM (06/29/2022 13:21 EDT) Magnesium 1.7 1.7 - 2.8 mg/dL 06/29/2022 14:01 EDT [facility] Blood VENOUS BLOOD / Unknown Venipuncture / Unknown 06/29/2022 13:21 EDT 06/29/2022 13:32 EDT Shauna Kramer MD CHEMISTRY & BLOOD GA S ORDERABLES Performing Organization Address City/State/[facility] Co de Phone Number [facility] [address] [place] [address] documented in this encounter Visit Diagnoses Diagnosis Hypomagnesemia- Primary Disorders of magnesium metabolism Vitamin D deficiency Unspecified vitamin D deficiency Restless legs Restless legs syndrome (RLS) documented in this encounter Care Teams Route Vending Machine Servicer Relationship Specialty Start Date End Date Trisha Jacobson, SEO TEAM LEAD [address] [place] [address] PCP - General 08/28/21 11/13/23 documented as of this encounter
--- OUTSIDE RECORDS SUMMARY | 2024-07-15 21:48 | XMS_ITS | Encounter Summary ---
Author Organization [facility] Address [address] [place] [address] Care Team Providers Care Rigger Chief Name Role Phone Jacobson, Trisha Camara APRN Primary Care Provider + Whitley Sage Unavailable [address] Primary Care Provider [phone] Reason for Visit * Reason Onset Date Comments Follow-up 02/13/2022 diarrhea and fee ling dehydrated Encounter Details Date Type Department Care Team (Late Contact Info) Description 02/13/2022 Telephone [facility] [address] [facility] [address] Gladys Garcia RN Follow-up (diarrhea and feeling dehydrated ) Social History Tobacco Use Types Packs/Day Years [...] No 12/26/2021 documented as of this encounter Miscellaneous Notes * Telephone Encounter - Nancy Kiran RN - 02/17/2022 1310 EDT LMTCB. As per previous documentation TE will be closed as Pt is unable to be reached. NANYC KIRAN RN. 02/17/22 13:10 * Telephone Encounter - Brooklyn Tolentino RN - 02/16/2022 1814 EDT LMTCB. Will try patient one more time before closing TE since she has not returned our call. * Telephone Encounter - Sneha Walton RN - 02/14/2022 1728 EDT Left another message for patient to call back with update. * Telephone Encounter - Sneha Walton RN - 02/14/2022 1352 EDT Left message for patient to call back. YEVVO [facility] phone number given * Telephone Encounter - Vero Brower MD - 02/14/2022 1323 EDT IF patient states she is feeling dehydrated, if she is dizzy or has a HR>100 with moving around,then she should proceed to the ER. * Telephone Encounter - Sneha Walton RN - 02/14/2022 1306 EDT Spoke with patient and advised. She verbalized understanding and had already seen results on MyChart.. She is drinking diluted Gatorade although not able to keep down food, including plain crackers. Sheis dry heaving and diarrhea continues. She stated feeling dehydrated and felt dizzy over the weekend. She does have support if clinician advises she be assessed for fluid rehydration at emergency room. Sending to [facility] Provider [place] for assistance * Telephone Encounter - Gladys Garcia RN - 02/13/2022 1037 EDT ----- Message from Linda Crisostomo NP sent at 02/13/2022 9:55 EDT ----- Please call Cecilia and let her know that recent COVID test is negative, and the stool tests thus far are all negative, we are still waiting for one more stool result. She is advised to continue with supportive measures as discussed and follow up in the emergency department for any new/worsening signs and symptoms. * Telephone Encounter - Gladys Garcia RN - 02/13/2022 1036 EDT Attempted to contact the patient on 02/13/22 regarding lab results. LMTCB GLADYS GARCIA RN 02/13/22 10:37 * Telephone Encounter - Gladys Garcia RN - 02/13/2022 1036 EDT ----- Message from Linda Crisostomo NP sent at 02/13/2022 9:55 EDT ----- Please call Cecilia and let her know that recent COVID test is negative, and the stool tests thus far are all negative, we are still waiting for one more stool result. She is advised to continue with supportive measures as discussed and follow up in the emergency department for any new/worsening signs and symptoms. documented in this encounter Plan of Treatment Not on file documented as of this encounter Visit Diagnoses Not on filedocumented in this encounter Additional Health Concerns Infection Onset Date Last Indicated Resolved Time R/O COVID-19 11/06/2023 11/06/2023 11/06/2023 18:3 2 EST documented as of this encounter Care Teams Rigger Chief Relationship Specialty Start Date End Date Trisha Jacobson APRN [address] [place] [phone] PCP - General 08/28/21 11/13/[address] [facility] [place] [phone] PCP - General Family Medicine - Primary Care 11/14/23 Whitley Sage MBBS [address] [place] [address], [address] [place] [address] Consulting Clinician Pulmonary Disease 05/01/22 documented as of this encounter
--- OUTSIDE RECORDS SUMMARY | 2024-07-15 21:48 | XMS_ITS | Encounter Summary ---
Author Organization [facility] Address [address] [place] [address] Care Team Providers Care Christmas Bell Ringer Name Role Phone Trisha Jacobson MUMTAZ Primary Care Provider + Reason for Visit * Reason Comments Otalgia Sinusitis Encounter Details Date Type Department Care Team ([facility] Contact Info) Description 03/16/2022 15:00 EDT Office Visit [facility] [address] [place] [address] Ricki Wiley MD [address] [place], [place] [id number] Acute swimmer's ear of right side (Primary Dx); Long Q-T syndrome; Primary hypertension; Asthma in adult, moderate persistent, uncomplicated; Acute recurrent frontal sinusitis Social History Tobacco Use Types Packs/Day Years [...] Sign Reading Time Taken Comments Blood Pressure 146/88 03/16/2022 1554 EDT Pulse 100 03/16/2022 1554 EDT Temperature 36.6 ??C (97.9 ??F) 03/16/2022 1554 EDT Respiratory Rate 20 03/16/2022 1554 EDT Oxygen Saturation 97% 03/16/2022 1554 EDT Inhaled Oxygen Concentration - - Weight - - Height - - Body Mass Index - - documented in this encounter Functional Status Functional Status Response Date of Assess ment Are you deaf or do you have serious difficulty h earing? No 12/26/2021 documented as of this encounter Patient Instructions * Patient Instructions* Ricki Wiley MD - 03/16/2022 15:00 EDT 1. Regarding your right ear, there is an external and internal infection, we will treat that with ear drops and an oral antibiotic. Use warm compresses 3-4x per day and take tylenol or ibuprofen as needed pain. We are doing a covid swab today and that should come back in the next couple of days. Ifit is positive then you would probably qualify for paxlovid which is a medicine to treat covid. Contact your primary care or express care if your covid test is positive. 2. Regarding long QT syndrome, will avoid QT prolonging antibiotics today 3. Regarding primary hypertension, blood pressure is not quite at goals, I recommend follow-up withprimary care and continue current management 4. Regarding history of asthma, continue current medications, currently this is stable 5. Regarding recurrent frontal sinusitis, we prescribed Augmentin today 875 mg twice a day for 7 days course and follow-up with ENT as scheduled documented in this encounter Ordered Prescriptions Prescription Sig Dispensed Refills Start Date End Da te amoxicillin-clavulanate (AUGMENTIN) 875-125 mg per tabletIndications:Acute recurrent frontal sinusitis Take 1 Tablet by mouth 2 times daily for 7 days. 14 Tablet 03/16/2022 03/23/2022 ciprofloxacin-fluocinolon e 0.3-0.025 % (0.25 mL) solutionIndications:Acute swimmer's ear of right side Place 1 Vial in ear(s) every 12 hours for 7 days. 14 Each 03/16/2022 03/23/2022 documented in this encounter Progress Notes * Brooklyn Tolentino RN - 03/16/2022 1500 EDT CC/HPI: Patient c/o sinus congestion and ear pain, developing over the past 1-2 days. No known fever. No cough. Has not done any covid testing yet. Covid Screening: In the last 72 hours, has the patient had: New or unusual cough, shortness of breath, new nasal congestion, sore throat, fever, chills, body aches, or new loss of taste or smell without a reasonable alternative diagnosis*? (If yes, assign to ARC)- YES In the past 10 days, has the patient had a positive Covid test OR a confirmed close Covid exposure (<6ft for > 15mins in 24hr period)? (if yes, assign to ARC, regardless of vaccination status)-NO *may be determined by RN or in discussion with available provider (DIE SETTER's and CCA's can defer to Charge Nurse to complete triage when appropriate) PCP: Trisha Jacobson * Ricki Wiley MD - 03/16/2022 1500 EDT [facility] Primary Care Assessment & Plan: 1. Acute swimmer's ear of right side ciprofloxacin-fluocinolone 0.3-0.025 % (0.25 mL) solution 2. Long Q-T syndrome 3. Primary hypertension 4. Asthma in adult, moderate persistent, uncomplicated 5. Acute recurrent frontal sinusitis amoxicillin-clavulanate (AUGMENTIN) 875-125 mg per tablet Cecilia Connelly is a pleasant 37 yrs old female with acute right OE and sinusitis, history of asthmaand hypertension. Lungs are clear today, right EAC is with purulent drainage and inflamed, left TM is red with mild effusion. Patient Instructions 1. Regarding your right ear, there is an external and internal infection, we will treat that with ear drops and an oral antibiotic. Use warm compresses 3-4x per day and take tylenol or ibuprofen as needed pain. We are doing a covid swab today and that should come back in the next couple of days. Ifit is positive then you would probably qualify for paxlovid which is a medicine to treat covid. Contact your primary care or express care if your covid test is positive. 2. Regarding long QT syndrome, will avoid QT prolonging antibiotics today 3. Regarding primary hypertension, blood pressure is not quite at goals, I recommend follow-up withprimary care and continue current management 4. Regarding history of asthma, continue current medications, currently this is stable 5. Regarding recurrent frontal sinusitis, we prescribed Augmentin today 875 mg twice a day for 7 days course and follow-up with ENT as scheduled Subjective: Chief Complaint(s): Otalgia and Sinusitis HPI: Cecilia Connelly is a pleasant 37 yrs old female who comes in today noting sinus congestion and ear pain, developing over the past 1-2 days. No known fever. No cough. Has not done any covid testing yet. Her right ear is draining some pus. Her face and eyes hurt and she feels stuffed and runny at the same time. The left ear hurts but is not draining. She has a history of a double ear infection on January 17. Her ear was itchy and she wondered about yeast. She is supposed to see ENT on the 04 of April. She had drops to treat it before and some oral antibiotics. She has a history of chronic ear infections since age 2. I have reviewed patient's tobacco history: reports that she quit smoking about 7 years ago. She does not have any smokeless tobacco history on file. I have reviewed and updated pertinent problem list, PMHx,PSHx,SocHx, allergies, and medications today. Review of Systems Constitutional: Negative for fever. HENT: Positive for congestion, ear discharge, ear pain, hearing loss and sinus pain. Negative for sore throat. Respiratory: Negative for cough and shortness of breath. Cardiovascular: Negative for chest pain. Gastrointestinal: Negative for diarrhea, nausea and vomiting. Objective: Examination: Vitals: BP (!) 146/88 Pulse 100 Temp 36.6 ??C (97.9 ??F) (Oral) Resp 20 SpO2 97% There is no heightor weight on file to calculate BMI. General Exam: GENERAL APPEARANCE: no acute distress, pleasant, cooperative. HEENT: NCAT, anicteric sclera, conjunctiva are pink, left TM is a little injected NECK: No masses noted, trachea midline, no lymphadenopathy or masses palpated, no JVD noted CHEST: normal shape and expansion. LUNGS: CTA bilaterally, no wheezes or rhonchi noted HEART: RRR, S1, S2, no murmurs, rubs or gallops noted ABD: Soft, NT, ND, normal BS, no HSM, no rebound or guarding noted. EXTREMITIES: no clubbing, no cyanosis, no edema. SKIN: warm & dry. FACE: no lesions. NEUROLOGIC EXAM: alert & oriented, gait normal. Data reviewed with patient: I have reviewed the pertinent laboratory and diagnostic information in the chart with the patient and answered all questions today. RICKI WILEY MD I spent a total of 30 minutes on the date of this encounter meeting with the patient and reviewing documentation/coordinating care as described in the above note. documented in this encounter Plan of Treatment Not on file documented as of this encounter Procedures Procedure Name Priority Date/Time Associated Diagnosis Comments [id number] [facility] (TESTING ONLY) Today 03/16/2022 16:41 EDT Acute recurrent frontal sinusitis COVID-19 TESTING Routine 03/16/2022 16:4 1 EDT Acute recurrent frontal sinusitis documented in this encounter Results * COVID-19 [facility] (TESTING ONLY) (03/16/2022 16:41 EDT) Swab BOTH ANTERIOR NARES / Unknown Swab / Unknown 03/16/2022 16:41 EDT 03/16/2022 16:41 EDT Ricki Wiley MD MICROBIOLOGY - GEN ERAL ORDERABLES [facility] [address] [place] [address] * COVID-19 TESTING (03/16/2022 16:41 EDT) COVID-19 rt-PCR Result Negative Negative 03/16/2022 21:41 EDT [facility] Performing Lab Diasorin Liaison [facility] Lab 03/16/2022 21:41 EDT [facility] Swab BOTH ANTERIOR NARES / Unknown Swab / Unknown 03/16/2022 16:41 EDT 03/16/2022 16:41 EDT Ricki Wiley MD MICROBIOLOGY - GEN ERAL ORDERABLES [facility] [address] [place] [address] documented in this encounter Visit Diagnoses Diagnosis Acute swimmer's ear of right side- Primary Long Q-T syndrome Long QT syndrome Primary hypertension Unspecified essential hypertension Asthma in adult, moderate persistent, uncomplicated Acute recurrent frontal sinusitis Acute frontal sinusitis documented in this encounter Care Teams Christmas Bell Ringer Relationship Specialty Start Date End Date Trisha Jacobson, MOLDED CANDLES WICKER [address] [place] [address] PCP - General 08/28/21 11/13/23 documented as of this encounter
--- OUTSIDE RECORDS SUMMARY | 2024-07-15 21:48 | XMS_ITS | Encounter Summary ---
Author Organization [facility] Address [address] [place] [address] Care Team Providers Care Superintendent Landfill Operations Name Role Phone Unknown, Provider Primary Care Provider [phone] Encounter Details Date Type Department Care Team ([facility] st Contact Info) Description 03/25/[address] [facility] [[email or web address]] [phone] Lauren Vivas, [address] [address] Social History Tobacco Use Types Packs/Day Years [...] Diagnosis Comments PAP TEST- RESULT ONLY Routine 03/25/2015 0:00 EDT documented in this encounter Results * PAP TEST- RESULT ONLY (03/25/2015 0:00 EDT) Pathology Report: CYTOPATHOLOGY REPORT Reports generated via electronic interface contain original data; however they are lacking the format of the original report. Caution should be taken when reading/interpreti ng unformatted reports. Name: ? LOULOUCECILIA Lowery ? Accession #: ? [id number] ? : ? 1985 (Age: 30) ??F ?Collect Date: ? 03/25/2015 ? Location: ? [facility] ? Receive Date: ? 03/26/2015 ? Provider: LAUREN VIVAS NMW Copy to: ? Final Report SPECIMEN ADEQUACY ? Satisfactory for Evaluation - transformation zone component present GENERAL CATEGORIZATION ? Negative for Intraepithelial Lesion or Malignancy ?? Specimen/Source: ??Pap Test, Cervix/Endocervix, ThinPrep Imaging System with manual evaluation Document reviewed and electronically signed by: ? Sundeep Chandler, [place](ASCP) ? Report ??Date: 04/05/2015 13:18 HPV with Pap Test ? Date Ordered: ? 04/02/2015 ? Status: ?? Signed Out ?Date Complete: ? 04/07/2015 ? By: ??System Interface ? Date Reported: ? 04/07/2015 ? Interpretation RESULT: Negative for HPV. No E6 or E7 mRNA is detected from HPV types 16,18,31,33,35, 39,45,51,52,56,58, 59,66, and 68 by paving supervisor mediated amplification. Comments Document reviewed and electronically signed by: ? System Interface ? Report date: 04/07/2015 By the signature above, the attending physician certifies that he/she has personally conducted a gross and/or microscopic examination of the described specimens and rendered or confirmed the above diagnosis. End of Report [facility] 03/25/2015 03/26/2015 Lauren Vivas [facility] ORDERA ESTELLAS [facility] [address] [place] [id number] documented in this encounter Visit Diagnoses Not on filedocumented in this encounter Care Teams Superintendent Landfill Operations Relationship Specialty Start Date End Date Unknown, Provider, PCP - General 01/26/09 08/27/21 documented as of this encounter
--- OUTSIDE RECORDS SUMMARY | 2024-07-15 21:48 | XMS_ITS | Encounter Summary ---
Author Organization [facility] Address [address] [place] [address] Care Team Providers Care Licensed Practical Nurse Name Role Phone Trisha Jacobson MUMTAZ Primary Care Provider + Reason for Visit * Reason Comments Follow-up 1 day follow-up: cor merly abrasion, left eye Encounter Details Date Type Department Care Team ([facility] Contact Info) Description 08/29/2021 15:15 EST Office Visit [facility] Ophthalmology [address] [address] Sha Andrew MD [address] [place] [phone] Social History Tobacco Use Types Packs/Day Years [...] No 08/28/2021 documented as of this encounter Progress Notes * Sha Andrew MD - 08/29/2021 1515 EST Chief Complaint Patient presents with ??? Follow-up 1 day follow-up: corneal abrasion, left eye HPI The patient is a 36 y.o. female here for follow up s/p corneal abrasion, left eye. She reports a little less discomfort today with ability to open her eye. She still has pain, itching, burning, tearing and redness. The vision is a little less blurred today. She has been using Moxifloxacin drops as prescribed by Dr. Yates. Right Eye: Left Eye: Blurred Vision, Tearing, Glare or Light Sensitivity, Burning, Itching, Pain/Soreness, Redness Visual Aid: Glasses Current Rx Age Location: Left eye Pain: 5.0 Quality: Blurry Severity: Severe Duration: Days Timing: Lasts: Context: 1 day follow-up: corneal abrasion, left eye Modifying factors: Less discomfort with left eye today such that she can now open the eye. Has 5/10pain today, still with itching, burning, tearing and redness. Vision is less blurry today than yesterday, but not yet back to normal. Took Vicodin at 5 AM and Naproxen around 11 AM for pain. Associated Signs & Symptoms: Dr. Yates prescribed Moxifloxacin 4x/day, left eye. SHe has used it twice so far today. Attestation: ROS Constitutional: NL ENT/Mouth Cardiovascular: High Blood Pressure Respiratory: Gastrointestinal: Heartburn Genitourinary: Musculoskeletal: Joint Pain, Muscle Pain Integumentary: Neurologic: Psychiatric: Depression, Uncontrolled Anxiety Endocrine: Hematologic: Immunologic: NL Supervisor [employer]: Exposures: None Other: Attestation: Base Eye Exam Visual Acuity (Snellen - Linear) Right Left Dist cc 20/20 -1 20/25 +1 Correction: Glasses Neuro/Psych Oriented x3: Yes Mood/Affect: Normal Slit Lamp and Fundus Exam Slit Lamp Exam Right Left Lids/Lashes Normal Normal Conjunctiva/Sclera White and quiet Subconjunctival hemorrhage Cornea Clear horizontal epithelial irregularity near limbus @ 6:00 & central Anterior Chamber Deep and quiet Deep and quiet Iris Round and reactive Round and reactive DIAGNOSTIC TESTING/PROCEDURES: IMPRESSION & PLAN: 1. Corneal abrasion, left eye 2. Subconjunctival hemorrhage, left eye Improving, defects nearly closed, no infiltrate Continue Vigamox drops 4 times daily x 7 days Return in about 1 week I have reviewed the patient's past medical, family, social and surgical history. I have also reviewed the patient's medications, allergies, and problem list. I performed my own HPI and have reviewed the tech's ROS as well. I completed this exam personally. Sha Andrew MD I am scribing for Sha Andrew MD, while he is personally performing the service. Jennifer Brown, STEVE Patient Education Topic: corneal abrasion Method: Verbal Taught to: Patient Barriers: None Outcomes: independent Signature: Sha Andrew MD documented in this encounter Plan of Treatment Not on file documented as of this encounter Visit Diagnoses Diagnosis Conjunctival hemorrhage of left eye- Primary Conjunctival hemorrhage Abrasion of left cornea, subsequent encounter documented in this encounter Eye Exam Visual Acuity (Snellen - Linear) Right eye Left eye Dist cc 20/20 -1 20/25 +1 Correction: Glasses Neuro/Psych Oriented x3: Yes Mood/Affect: Normal Slit Lamp Exam Right eye Left eye Lids/Lashes Normal Normal Conjunctiva/Sclera White and quiet Subconjunctiv al hemorrhage Cornea Clear horizontal epith elial irregularity near limbus @ 6:00 & central Anterior Chamber Deep and quiet Deep and quiet Iris Round and reactive Round and harjit ctive Care Teams Licensed Practical Nurse Relationship Specialty Start Date End Date Trisha Jacobson, MASS SPECTROSCOPIST [address] [place] [phone] PCP - General 08/28/21 11/13/23 documented as of this encounter
--- OUTSIDE RECORDS SUMMARY | 2024-07-15 21:48 | XMS_ITS | Encounter Summary ---
Author Organization Health system Address [address] [place] [address] Care Team Providers Care Entertainment Director Name Role Phone Trisha Jacobson APRN Primary Care Provider + Reason for Referral * Radiology Services (Routine/Next Available) - Authorization Not Required Specialty Diagnoses / Procedures Referred By Contac t Referred To Contact Radiology Diagnoses Pain in right knee Procedures MR KNEE WO CONTRAST RIGHT Trisha Jacobson APRN [address] [place] [address] [facility] Referral ID Status Reason Start Date Expiration Date Visits Requested Visits Authorized [id number] Authorization Not Required 12/28/2021 1 1 Reason for Visit * Radiology Services (Routine/Next Available) - Authorization Not Required Specialty Diagnoses / Procedures Referred By Nakia anderson Referred To Contact Radiology Diagnoses Pain in right knee Procedures MR KNEE WO CONTRAST RIGHT Trisha Jacobson AMBULANCE OFFICER [address] [place] [address] [facility] Referral ID Status Reason Start Date Expiration Date Visits Requested Visits Authorized [id number] Authorization Not Required 12/28/2021 1 1 Encounter Details Date Type Department Care Team (Latest Contact Info) Description 01/25/2022 19:01 EDT - 01/25/2022 23:59 EDT Hospital Encounter [facility] MRI [address] [place] [address] Pain in right knee Discharge Disposition: Home [...] Sig Dispensed Refills Start Date End Date ADVAIR HFA 230-21 mcg/actuation inhaler Inhale 2 Puffs as directed 2 times daily. 01/23/2022 Cholecalciferol, Vitamin D3, 50 mcg capsule TAKE 2 CAPSULES BY MOUTH ONCE DAILY 01/10/2022 fluticasone propionate (FLONASE) 50 mcg/actuation nasal spray Instill 2 Sprays into both nostrils 2 times daily. L-Methylfolate 15 mg tablet daily. 01/23/2022 lamoTRIgine (LAMICTAL) 200 mg tablet daily. 01/13/2022 lisinopriL (PRINIVIL) 40 mg tablet Take 1 Tablet by mouth daily. LORazepam (ATIVAN) 1 mg tablet Take 1 mg by mouth 2 times daily. BID PRN moxifloxacin (VIGAMOX) 0.5 % ophthalmic solution Place 1 Drop into the left eye 4 times daily. 1 mL 08/28/2021 naproxen (NAPROSYN) 500 mg tablet 1 tab twice daily 01/23/2022 VITAMINS B COMPLEX tablet Take 1 Tablet [...] mg tablet,disintegrating 2 tabs at hs 01/20/20222023 naproxen (NAPROSYN) 250 mg tablet Take by [...] Procedure Name Priority Date/Time Associated Diagnosis Comments MR KNEE WO CONTRAST RIGHT Routine 01/25/2022 19:49 EDT Pain in right knee documented in this encounter Results * MR KNEE WO CONTRAST RIGHT (01/25/2022 19:49 EDT) Anatomical Region Laterality Modality Lower Extremities Right Magnetic Reson ance 01/25/2022 19:1 7 EDT Impressions 01/25/2022 20:58 EDT 1. Mild tricompartment osteoarthritis. 2. No associated tear. 3. Mild to moderate knee effusion. THIS DOCUMENT HAS BEEN ELECTRONICALLY SIGNED BY JOANNA DEL REAL MD FOR ANY QUESTIONS OR CONCERNS REGARDING THIS REPORT PLEASE CALL [facility] AT [phone] Narrative 01/25/2022 20:58 EDT PROCEDURE INFORMATION: Exam: MR Right Lower Extremity Joint Without Contrast, Knee Exam date and time: 01/25/2022 7:17 PM Age: 37 years old Clinical indication: Other: Unable to bear weight. Xray 12/22/21 TECHNIQUE: Imaging protocol: MR of the Right lower extremity joint without contrast. Exam focused on the knee. Total images: 237 COMPARISON: CR XR KNEE RIGHT 3 VIEWS 12/22/2021 3:11 PM FINDINGS: Bones and cartilage: There is mild articular cartilaginous thinning in the medial and lateral femoral tibial compartments with secondary osteophytes. Small patellar osteophytes. Mild thinning of the cartilage overlying the medial patellar facet. No loose body. Joint spaces: Mild to moderate knee effusion. ??No bone marrow edema. Medial meniscus: Mucoid degeneration within medial meniscal horns. No discrete tear. There is mild medial extrusion of the medial meniscus. Lateral meniscus: Unremarkable. No tear. Anterior cruciate ligament: Unremarkable. No tear. Posterior cruciate ligament: Unremarkable. No tear. Medial capsule and supporting structures: Unremarkable. No tear. Lateral capsule and supporting structures: Unremarkable. No tear. Extensor mechanism of knee: Unremarkable. No tear. Muscles: Unremarkable. Soft tissues: Mild subcutaneous edema anteriorly. Procedure Note Joanna Del Real MD - 01/25/2022 PROCEDURE INFORMATION: Exam: MR Right Lower Extremity Joint Without Contrast, Knee Exam date and time: 01/25/2022 7:17 PM Age: 37 years old Clinical indication: Other: Unable to bear weight. Xray 12/22/21 TECHNIQUE: Imaging protocol: MR of the Right lower extremity joint without contrast. Exam focused on the knee. Total images: 237 COMPARISON: CR XR KNEE RIGHT 3 VIEWS 12/22/2021 3:11 PM FINDINGS: Bones and cartilage: There is mild articular cartilaginous thinning in the medial and lateral femoral tibial compartments with secondary osteophytes. Small patellar osteophytes. Mild thinning of the cartilage overlying the medial patellar facet. No loose body. Joint spaces: Mild to moderate knee effusion. No bone marrow edema. Medial meniscus: Mucoid degeneration within medial meniscal horns. No discrete tear. There is mild medial extrusion of the medial meniscus. Lateral meniscus: Unremarkable. No tear. Anterior cruciate ligament: Unremarkable. No tear. Posterior cruciate ligament: Unremarkable. No tear. Medial capsule and supporting structures: Unremarkable. No tear. Lateral capsule and supporting structures: Unremarkable. No tear. Extensor mechanism of knee: Unremarkable. No tear. Muscles: Unremarkable. Soft tissues: Mild subcutaneous edema anteriorly. IMPRESSION 1. Mild tricompartment osteoarthritis. 2. No associated tear. 3. Mild to moderate knee effusion. THIS DOCUMENT HAS BEEN ELECTRONICALLY SIGNED BY JOANNA DEL REAL MD FOR ANY QUESTIONS OR CONCERNS REGARDING THIS REPORT PLEASE CALL [facility] [phone] Trisha Jacobson APRN IMG MRI ORDERABL ES documented in this encounter Visit Diagnoses Diagnosis Pain in right knee Pain in joint, lower leg documented in this encounter Care Teams Entertainment Director Relationship Specialty Start Date End Date Trisha Jacobson APRN [address] [place] [id number] PCP - General 08/28/21 11/13/23 documented as of this encounter
--- OUTSIDE RECORDS SUMMARY | 2024-07-15 21:48 | XMS_ITS | Encounter Summary ---
Author Organization [facility] Address [address] [place] [address] Care Team Providers Care Lead Man [employer] Name Role Phone Trisha Jacobson MUMTAZ Primary Care Provider + Reason for Visit * Reason Comments Fall Patient reports fall ing out of bed and hitting her head on the night stand and feeling the sensation that something is in her left eye. Encounter Details Date Type Department Care Team (Late st Contact Info) Description 08/28/2021 5:52 EST - 08/28/2021 9:47 EST Emergency [facility] Emergency Department [address] [place] [address] Cristine Olson MD [address] [place] [address] Abrasion of left cornea, initial encounter (Primary Dx) Discharge Disposition: Home or Self Care Social History Tobacco Use Types Packs/Day Years Used Date Smoking Tobacco: Never Assessed Sex and Gender Information Value Date Recorded Sex Assigned at Not on file Gender Identity Female 04/26/2022 9:31 EDT Sexual Orientation Not on file documented as of this encounter Last Filed Vital Signs Vital Sign Reading Time Taken Comments Blood Pressure 141/72 08/28/2021 0832 EST Pulse 85 08/28/2021 0609 EST Temperature 36.6 ??C (97.9 ??F) 08/28/2021 0609 EST Respiratory Rate - - Oxygen Saturation 100% 08/28/2021 0832 EST Inhaled Oxygen Concentration - - Weight - - Height - - Body Mass Index - - documented in this encounter Functional Status Functional Status Response Date of Assess ment Are you deaf or do you have serious difficulty h earing? No 08/28/2021 documented as of this encounter Discharge Instructions * Discharge Instructions* Cristine Olson MD - 08/28/2021 9:23 EST You were seen for an eye injury. It appears there is an injury to the cornea, which is generally treated with antibiotic ointment. However, the degree of redness and pain is concerning, in addition to the corneal injury. We have consulted with Dr. Yates of ophthalmology, who is honing machine operator production for our hospital. His office is at [address] [place] [address] in [place]. He can fit you in today at 2:30pm. documented in this encounter Medications at Time of Discharge Medication Sig Dispensed Refills Start Date End Date fluticasone propionate (FLONASE) 50 mcg/actuation nasal spray Instill 2 Sprays into both nostrils 2 times daily. lisinopriL (PRINIVIL) 40 mg tablet Take 1 Tablet by mouth daily. LORazepam (ATIVAN) 1 mg tablet Take 1 mg by mouth 2 times daily. BID PRN ALLERGARD GLOVES MISC by misc (non-drug; combo route) route. 2023 aminocaproic acid (AMICAR) 500 mg tablet Take 1,000 mg by mouth. BID 11/30/2022 buPROPion (WELLBUTRIN XL) 150 mg XL tablet Take 150 mg by mouth daily. 11/30/2022 lamoTRIgine (LAMICTAL) 100 mg tablet Take 100 [...] Code Departure Means Destination Home or Self Halfway documented in this encounter ED Notes * Cristine Olson MD - 08/28/2021 0621 EST [facility] EMERGENCY DEPARTMENT Patient Name: Cecilia Connelly Visit Date: 08/28/2021 Mode of Arrival:Walk-in Primary Care Provider: Trisha MEEHAN ED ASSESSMENT & TREATMENT SUMMARY Chief Complaint Patient presents with ??? Fall Patient reports falling out of bed and hitting her head on the night stand and feeling the sensation that something is in her left eye. ED Physician Assessment and Clinical Summary Cecilia Connelly is a pleasant 36 y.o. female presenting to the emergency department with left eye injury. She woke up as she was falling out of bed, striking her left eye on the corner of her bedside table. Please refer to HPI for details. She is afebrile and VS are stable and normal. She has an abrasion underneath the left lower lid. The left upper lid is edematous. She states vision from her left eye is blurry. She is having a difficult time holding the eye open. No foreign body is noted. There is an obvious defect to the anterior cornea. Negative Kika's sign. Extraocular movements are intact. She has subconjunctival hemorrhage, and conjunctival hyperemia. PERRL. Significant photophobia is present. She was given Tylenol and Boostrix tetanus shot. CT shows no orbital fracture, no retrobulbar hematoma, no evidence of globe rupture. She underwent exam with tetracaine which did not give much improvement in pain. She can keep the eye open spontaneously for just a few seconds before it tears and becomes painful,even with tetracaine. She cannot tolerate somebody trying to hold the eye open. We reattempted a visual acuity exam and she continues to say she can only see blotches and it is blurry. For the corneal defects, she was given a dose of erythromycin ointment. She states this was exquisitely painful. I did reach out to Dr. Yates of ophthalmology regarding her presentation, given the corneal defectand the hyperemia/injection diffusely throughout the eye. He feels it is safe to attempt ocular pressure. IOP attempted multiple times with Tonopen Avia with no success. Unclear if because can't holdeye open for long enough. Machine seemed to be functioning adequately. She was directed to Dr. Yates's office at 2:30pm today for in person evaluation. Final Diagnosis Final diagnoses: Abrasion of left cornea, initial encounter Disposition Discharged Discharge Medications Hydrocodone/APAP 325 to go The following has been discussed or performed: -Consideration of alternatives to opioid therapy -Discussion of risks and benefits to opioid therapy -Potential side effects -Consideration of the lowest effective dose of opiate medication -A written patient education sheet has been provided -Informed written consent has been obtained from the patient/Guardian -VPMS has been queried -Naloxone has been prescribed/dispensed All questions were answered and the patient/family understands and agrees with the current plan., The patient will be discharged. Follow Up Care Raheem Yates MD [address] [place] [address] [address] [facility] [id number] [address] Yates's office at 2:30 today. EXTENDED ED RECORD History of Present Illness (Complete) Cecilia Connelly is a pleasant 36 y.o. female presenting to the ED with left eye pain. She was sleeping in bed when she suddenly woke up as her left eye struck the edge of the bedside nightstand as she was falling out of bed. No loss of consciousness. She has significant pain to the left eye with blurry vision. She states she feels like there is something in the left upper corner of the eye. She does not wear correction. She drove herself to the emergency department. Unknown tetanus status. HPI Data Reviewed this visit No Known Allergies Current Facility-Administered Medications Medication Dose Route Frequency Provider Last Rate Last Admin ??? erythromycin (ROMYCIN) 5 mg/gram (0.5 %) ophthalmic ointment 0.5 Strip 0.5 Strip left eye QID Cristine Olson MD 0.5 Strip at 08/28/21 0904 Current Outpatient Medications Medication Sig Dispense Refill ??? ALLERGARD GLOVES MISC by misc (non-drug; combo route) route. ??? aminocaproic acid (AMICAR) 500 mg tablet Take 1,000 mg by mouth. BID ??? buPROPion (WELLBUTRIN XL) 150 mg XL tablet Take 150 mg by mouth daily. ??? fluticasone propionate (FLONASE) 50 mcg/actuation nasal spray Instill 100 mcg into both nostrils 2 times daily. ??? lamoTRIgine (LAMICTAL) 100 mg tablet Take 100 mg by mouth daily. ??? lisinopriL (PRINIVIL) 40 mg tablet Take 40 mg by mouth daily. ??? LORazepam (ATIVAN) 1 mg tablet Take 1 mg by mouth 2 times daily. BID PRN ??? magnesium oxide (MAG-OX) 400 mg (241.3 mg magnesium) tablet Take 2,000 mg by mouth 2 times daily. ??? naproxen (NAPROSYN) 250 mg tablet Take by mouth 2 times daily. BID ??? sertraline (ZOLOFT) 50 mg tablet Take 100 mg by mouth daily. Review of Symptoms ROS A 10-point review of systems was performed. The historian answered negative to all questions with the exceptions of those explicitly detailed as positives in the HPI. Pertinent negatives are also explicitly stated. Physical Exam Vital Signs Vital Signs Temp: 36.6 ??C (97.9 ??F) Temp src: Oral Pulse: 85 SpO2: 100 % Pulse From Oximetry: 80 BPM BP: 141/72 BP MAP: 95 mm Hg BP Device: BP Machine Nursing notes and vital signs were reviewed. Physical Exam Vitals and nursing note reviewed. Constitutional: Appearance: Normal appearance. She is not ill-appearing or toxic-appearing. HENT: Head: Normocephalic. Right Ear: External ear normal. Left Ear: External ear normal. Eyes: General: Left eye: No foreign body or discharge. Extraocular Movements: Extraocular movements intact. Right eye: Normal extraocular motion and no nystagmus. Left eye: Normal extraocular motion and no nystagmus. Conjunctiva/sclera: Right eye: Right conjunctiva is not injected. No chemosis, exudate or hemorrhage. Left eye: Left conjunctiva is injected. Chemosis present. Comments: She has an abrasion underneath the left lower lid. The left upper lid is edematous. She states vision from her left eye is blurry. She is having a difficult time holding the eye open. No foreign body is noted. There is an obvious defect to the anterior cornea. Negative Kika's sign. Extraocular movements are intact. She has subconjunctival hemorrhage, and conjunctival hyperemia. PERRL.Significant photophobia is present. Cannot tolerate visual acuity exam. IOP attempted multiple times with Tonopen Avia with no success. Unclear if because can't hold eye open for long enough. Machine seemed to be functioning. Cardiovascular: Rate and Rhythm: Normal rate and regular rhythm. Pulses: Normal pulses. Heart sounds: Normal heart sounds. Pulmonary: Effort: Pulmonary effort is normal. No respiratory distress. Breath sounds: Normal breath sounds. Musculoskeletal: Cervical back: Normal range of motion and neck supple. Skin: General: Skin is warm and dry. Neurological: General: No focal deficit present. Mental Status: She is alert and oriented to person, place, and time. Psychiatric: Mood and Affect: Mood normal. Behavior: Behavior normal. Procedures Procedures Data Interpretation/Results Laboratory results independently reviewed, significant for: Labs Reviewed - No data to display Imaging obtained was reviewed and independently interpreted: CT OUTSIDE IMAGES MSK Final Result CT ORBITS WO CONTRAST Final Result 1. No evidence of globe injury or retrobulbar are orbital abnormality. No orbital wall fractures. 2. Otomastoid and sinonasal findings as described. THIS DOCUMENT HAS BEEN ELECTRONICALLY SIGNED BY SKYE REED MD FOR ANY QUESTIONS OR CONCERNS REGARDING THIS REPORT PLEASE CALL [facility] AT [phone] Medical Decision Making and Patient Care Timeline MDM Final diagnoses: Abrasion of left cornea, initial encounter Disposition The patient was discharged to follow up with Dr. Yates at 2:30pm. documented in this encounter Plan of Treatment Not on file documented as of this encounter Procedures Procedure Name Priority Date/Time Associated Diagnosis Comments CT OUTSIDE IMAGES MSK Routine 08/28/2021 8:[address] ORBITS WO CONTRAST STAT 08/28/2021 7:02 EST documented in this encounter Results * CT OUTSIDE IMAGES MSK (08/28/2021 8:32 EST) Narrative 08/28/2021 8:32 EST This is a non-reportable exam. Provider Unknown MD YAN OTHER IMAGING OR DERABLES * CT ORBITS WO CONTRAST (08/28/2021 7:02 EST) Anatomical Region Laterality Modality Head Computed Tomogra phy 08/28/2021 6:50 EST Impressions 08/28/2021 8:05 EST 1. No evidence of globe injury or retrobulbar are orbital abnormality. No orbital wall fractures. 2. Otomastoid and sinonasal findings as described. THIS DOCUMENT HAS BEEN ELECTRONICALLY SIGNED BY SKYE REED MD FOR ANY QUESTIONS OR CONCERNS REGARDING THIS REPORT PLEASE CALL [facility] AT [phone] [facility] 08/28/2021 8:05 EST PROCEDURE INFORMATION: Exam: CT Orbits Without Contrast Exam date and time: 08/28/2021 6:50 AM Age: 36 years old Clinical indication: Other: L eye trauma TECHNIQUE: Imaging protocol: Computed tomography images of the orbits without contrast. Radiation optimization: All CT scans at this facility use at least one of these dose optimization techniques: automated exposure control; mA and/or kV adjustment per patient size (includes targeted exams where dose is matched to clinical indication); or iterative reconstruction. COMPARISON: CT HEAD WITHOUT CONTRAST 04/09/2021 2:50 PM FINDINGS: Orbital cavity: There appears to be mild left preseptal soft tissue swelling. Ocular globes are intact without rupture. Lenses are normally positioned. There is no evidence retrobulbar inflammatory or posttraumatic process or mass. ??No evidence of orbital wall fracture. Paranasal sinuses: There is a very small left maxillary sinus retention cyst or polyp. Minimal left scattered mucosal thickening in ethmoid, sphenoid, and maxillary sinuses. No air-fluid levels. Mastoid air cells: Mastoid air cells are underdeveloped with opacification in inferior posterior bilateral mastoid air cells. No bony or septal erosion. Auditory system: There is partial opacification in bilateral external auditory canals and correlate with clinical examination. No canal bony erosion. There is thickening of right tympanic membrane with possible perforation inferiorly. There is also likely mild thickening of left tympanic membrane. Middle ear cavities are well developed and ossicles appear intact. Nasal cavity: There is engorgement left turbinates and nasal mucosa which may relate to nasal cycle. Bones/joints: ??No acute fracture. Soft tissues: No significant facial soft tissue swelling. Procedure Note Skye Reed MD - 08/28/2021 PROCEDURE INFORMATION: Exam: CT Orbits Without Contrast Exam date and time: 08/28/2021 6:50 AM Age: 36 years old Clinical indication: Other: L eye trauma TECHNIQUE: Imaging protocol: Computed tomography images of the orbits without contrast. Radiation optimization: All CT scans at this facility use at least one of these dose optimization techniques: automated exposure control; mA and/or kV adjustment per patient size (includes targeted exams where dose is matched to clinical indication); or iterative reconstruction. COMPARISON: CT HEAD WITHOUT CONTRAST 04/09/2021 2:50 PM FINDINGS: Orbital cavity: There appears to be mild left preseptal soft tissue swelling. Ocular globes are intact without rupture. Lenses are normally positioned. There is no evidence retrobulbar inflammatory or posttraumatic process or mass. No evidence of orbital wall fracture. Paranasal sinuses: There is a very small left maxillary sinus retention cyst or polyp. Minimal left scattered mucosal thickening in ethmoid, sphenoid, and maxillary sinuses. No air-fluid levels. Mastoid air cells: Mastoid air cells are underdeveloped with opacification in inferior posterior bilateral mastoid air cells. No bony or septal erosion. Auditory system: There is partial opacification in bilateral external auditory canals and correlate with clinical examination. No canal bony erosion. There is thickening of right tympanic membrane with possible perforation inferiorly. There is also likely mild thickening of left tympanic membrane. Middle ear cavities are well developed and ossicles appear intact. Nasal cavity: There is engorgement left turbinates and nasal mucosa which may relate to nasal cycle. Bones/joints: No acute fracture. Soft tissues: No significant facial soft tissue swelling. IMPRESSION 1. No evidence of globe injury or retrobulbar are orbital abnormality. No orbital wall fractures. 2. Otomastoid and sinonasal findings as described. THIS DOCUMENT HAS BEEN ELECTRONICALLY SIGNED BY SKYE REED MD FOR ANY QUESTIONS OR CONCERNS REGARDING THIS REPORT PLEASE CALL [facility] [phone] Cristine Olson MD IMG CT ORDERABLES documented in this encounter Visit Diagnoses Diagnosis Abrasion of left cornea, initial encounter- Primary documented in this encounter Administered Medications Inactive Administered Medications - up to 3 most recent administrations Medication Order MAR Action Action Date Dose Rate Site acetaminophen (TYLENOL) tablet 975 mg 975 mg (rounded from 1,000 mg), oral, NOW X1, 1 dose, On 08/28/21 at 0645, Routine Given 08/28/2021 6:33 EST 975 mg erythromycin (ROMYCIN) 5 mg/gram (0.5 %) ophthalmic ointment 0.5 Strip 0.5 Strip, left eye, 4 TIMES DAILY, 20 doses, First dose (after last modification) on 08/28/21 at 0930, Last dose on Sun09/02/21 at 0800 Given 08/28/2021 9:04 EST 0.5 Strips HYDROcodone-acetaminophen (NORCO) 5-325 mg tablet 1 Tablet 1 Tablet, oral, NOW X1, 1 dose, On 08/28/21 at 0930, STAT Given 08/28/2021 9:24 EST 1 Tablet HYDROcodone/acetaminophen 5 - 325 mg starter pack 1 Package, oral, NOW X1, 1 dose, On 08/28/21 at 0930, STAT Given 08/28/2021 9:25 EST 1 Package tetracaine HCl (PF) (PONTOCAINE) 0.5 % ophthalmic solution 2 Drop 2 Drop, left eye, NOW X1, 1 dose, On 08/28/21 at 0830, STAT Given 08/28/2021 8:11 EST 2 Drops documented in this encounter Historical Medications * This list may reflect changes made after this encounter. Medication Sig Dispensed Refills Start Date End Date fluticasone propionate (FLONASE) 50 mcg/actuation nasal spray Instill 2 Sprays into both nostrils 2 times daily. LORazepam (ATIVAN) 1 mg tablet Take 1 mg by mouth 2 times daily. BID PRN lisinopriL (PRINIVIL) 40 mg tablet Take 1 Tablet by mouth daily. MARIE GLOVES MISC by misc (non-drug; combo route) route. 2023 naproxen (NAPROSYN) 250 mg tablet Take by mouth 2 times daily. BID 02/10/2022 aminocaproic acid (AMICAR) 500 mg tablet Take 1,000 mg by mouth. BID 11/30/2022 magnesium oxide (MAG-OX) 400 mg (241.3 mg magnesium) tablet Take 2,000 mg by mouth 2 times daily. 11/08/2023 sertraline (ZOLOFT) 50 mg tablet Take 100 mg by mouth daily. 02/10/2022 lamoTRIgine (LAMICTAL) 100 mg tablet Take 100 mg by mouth daily. 02/10/2022 buPROPion (WELLBUTRIN XL) 150 mg XL tablet Take 150 mg by mouth daily. 11/30/2022 added in this encounter Active and Recently Administered Medications Times are shown in EST. Scheduled Medication Order 08/26/2021 08/27/2021 08/28/2021 acetaminophen (TYLENOL) tablet 975 mg (COMPLETED) 975 mg (rounded from 1,000 mg), oral, NOW X1, 1 dose, On 08/28/21 at 0645, Routine 0633 (Given - Provid er: Marycruz Puente RN) erythromycin (ROMYCIN) 5 mg/gram (0.5 %) ophthalmic ointment 0.5 Strip 0.5 Strip, left eye, 4 TIMES DAILY, 20 doses, First dose (after last modification) on 08/28/21 at 0930, Last dose on Sun09/02/21 at 0800 0904 (Given - Provid er: Tere Figueroa RN) HYDROcodone-acetaminophen (NORCO) 5-325 mg tablet 1 Tablet (COMPLETED) 1 Tablet, oral, NOW X1, 1 dose, On 08/28/21 at 0930, STAT 0924 (Given - Provid er: Tere Figueroa RN) HYDROcodone/acetaminophen 5 - 325 mg starter pack (COMPLETED) 1 Package, oral, NOW X1, 1 dose, On 08/28/21 at 0930, STAT 0925 (Given - Provid er: Tere Figueroa RN) tetracaine HCl (PF) (PONTOCAINE) 0.5 % ophthalmic solution 2 Drop (COMPLETED) 2 Drop, left eye, NOW X1, 1 dose, On 08/28/21 at 0830, STAT 0811 (Given - Provid er: Sheela Avila RN - Comment: dispensed to provider) documented in this encounter Orders Medications Ordered That Esequiel ht Not Have Been Administered Count Last Ordered Date First Ordered Date erythromycin (ROMYCIN) 5 mg/ gram (0.5 %) ophthalmic ointment 0.5 Strip 1 08/28/2021 Nursing Count Last Ordered Date First Orde red Date CALL PHYSICIAN SPECIALTY CONSULT 1 08/28/20 21 documented in this encounter Care Teams Lead Man [employer] Relationship Specialty Start Date End Date Trisha Jacobson, HEALTH AIDE [address] [place] [id number] PCP - General 08/28/21 11/13/23 documented as of this encounter
--- OUTSIDE RECORDS SUMMARY | 2024-07-15 21:48 | XMS_ITS | Encounter Summary ---
Author Organization [facility] Address [address] [place] [address] Care Team Providers Care Plain Goods Hemmer Name Role Phone Trisha Jacobson FLASH RANGING CREWMEMBER Primary Care Provider + Reason for Visit * Reason Comments Otitis Externa last few months - tr eated drops and antibiotics. ears feels plugged decreased hearing. occ itiching. * Referral (Routine) - Authorization Not Required Specialty Diagnoses / Procedures Referred By [facility] Referred To Contact Otolaryngology Diagnoses History of ear infections Trisha Jacobson, FLASH RANGING CREWMEMBER [address] [place] [address] [facility] [address] [place] [id number] Referral ID Status Reason Start Date Expiration Date Visits Requested Visits Authorized [id number] Authorization Not Required 1 1 Encounter Details Date Type Department Care Team (Late st Contact Info) Description 04/04/2022 10:30 EDT Office Visit [facility] [address] [place] [address] Abiel Hidalgo MD [address] [place] [address] [address] [place] [address] 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 (Primary Dx); Myringitis Social History Tobacco Use Types Packs/Day Years Used Date Smoking Tobacco: Former Cigarettes 1 10 2 005 - 2015 Alcohol Use Standard Drinks/Week Comments Not Currently [...] 10:33 EDT documented as of this encounter Last Filed Vital Signs Vital Sign Reading Time Taken Comments Blood Pressure - - Pulse - - Temperature 36.3 ??C (97.3 ??F) 04/04/2022 1048 EDT Respiratory Rate - - Oxygen Saturation - - Inhaled Oxygen Concentration - - Weight 181.4 kg (400 lb) 04/04/2022 1048 EDT Height 162.6 cm (5' 4) 04/04/2022 1048 EDT Body Mass Index 68.66 04/04/2022 1048 EDT documented in this encounter Functional Status Functional Status Response Date of Assess ment Are you deaf or do you have serious difficulty h earing? No 12/26/2021 documented as of this encounter Progress Notes * Abiel Hidalgo MD - 04/04/2022 1030 EDT CHIEF COMPLAINT: Ear infection HPI: 37-year-old female with a history of a right eardrum perforation has had drainage and itching and discomfort over the past few months treated with drops and antibiotics. The ear feels plugged with some decrease in hearing. No vertigo. Past Medical History: Diagnosis Date ??? Asthma ??? Hypertension Past Surgical History: Procedure Laterality Date ??? TONSILLECTOMY ??? TYMPANOSTOMY TUBE PLACEMENT Allergies Allergen Reactions ??? Azithromycin Outpatient Medications Marked as Taking for the 04/04/22 encounter (Office Visit) with Abiel Hidalgo MD Medication Sig Dispense Refill ??? acetaminophen (TYLENOL) [...] Take 150 mg by mouth daily. ??? Cholecalciferol, Vitamin D3, 50 mcg capsule TAKE 2 CAPSULES BY MOUTH ONCE DAILY ??? fexofenadine (PRAVIN) 180 mg tablet Take 180 mg by mouth daily. ??? fluticasone propionate (FLONASE) 50 mcg/actuation nasal spray Instill 100 mcg into both nostrils 2 times daily. ??? glucosam/artur-msm1/C/osbaldo/bosw (OSTEO BI-FLEX TRIPLE STRENGTH ORAL) Take 2 Tablets by mouth daily. ??? glucosamine/chondr anguiano A sod (OSTEO BI-FLEX ORAL) Take by mouth 2 times daily. ??? ketotifen (ALAWAY) 0.025 % (0.035 %) ophthalmic solution Place 1 Drop into both eyes 2 times daily. ??? L-Methylfolate 15 mg tablet ??? Lactobacillus acidophilus (PROBIOTIC) 10 billion cell capsule Take by mouth daily. ??? lactobacillus rhamnosus, GG, (CULTURELLE) 10 billion cell capsule Take 1 capsule by mouth daily. ??? lactose-reduced food (NUTRITIONAL SUPPLEMENT ORAL) Take by mouth. ??? lamoTRIgine (LAMICTAL) 200 mg tablet TAKE 1 TABLET BY MOUTH ONCE DAILY CONTINUE TO MONITOR RASH ??? Lavender Oil oil by other route. ??? Leg Brace (KNEE STABILIZER) misc by misc (non-drug; combo route) route. Leg brace ??? lisdexamfetamine (VYVANSE) 10 mg capsule Take [...] mg by mouth 2 times daily. ??? melatonin 5 mg tablet,disintegrating 2 tabs at hs ??? moxifloxacin (VIGAMOX) 0.5 % ophthalmic solution Place 1 Drop into the left eye 4 times daily. 1 mL 0 ??? Multivitamins with Minerals tablet tablet Take 3 Tablets by mouth daily. ??? naproxen (NAPROSYN) 500 mg tablet 1 tab twice daily ??? omeprazole (PRILOSEC) 40 mg capsule Take by mouth daily. ??? oxygen-air delivery systems (HORIZON NASAL CPAP SYSTEM MISC) by misc (non- drug; combo route) route. ??? sertraline (ZOLOFT) 100 mg tablet TAKE 1 TABLET BY MOUTH ONCE DAILY DIRECTED ??? UNABLE TO FIND Med Name: THC edibles ??? VITAMINS B COMPLEX tablet Take 1 Tablet by mouth 2 times daily. ??? VYVANSE 30 mg capsule TAKE 1 CAPSULE BY MOUTH IN THE MORNING ALONG WITH 10MG IN THE AFTERNOON Family History Problem Relation Age of Onset ??? Allergic Rhinitis Mother ??? Cancer Mother ??? Hearing Loss Maternal Grandmother ??? Cancer Maternal Grandfather ??? Heart Disease Maternal Grandfather Social History Socioeconomic History ??? Marital status: Single Spouse name: Not on file ??? Number of children: Not on file ??? Years of education: Not on file ??? Highest education level: Not on file Occupational History ??? Not on file Tobacco Use ??? Smoking status: Former Smoker Packs/day: 1.00 Years: 10.00 Pack years: 10.00 Types: Cigarettes Quit date: 2014 Years since quittin.5 Substance and Sexual Activity ??? Alcohol use: Not Currently ??? Drug use: Yes Comment: edibles ??? Sexual activity: Not on file Other Topics Concern ??? Not on file Social History Narrative ??? Not on file Social Determinants of Health Financial Resource Strain: Not on file Food Insecurity: Not on file Transportation Needs: Not on file Physical Activity: Not on file Stress: Not on file Social Connections: Not on file REVIEW OF SYSTEMS: Significant for cough shortness of breath wheezing headaches light sensitivity ankle swelling palpitations muscle joint and back pain bruising anxiety depression congestion ear drainage pain hearing loss tinnitus hoarseness sore throat heartburn reflux otherwise negative for complete review of all systems PHYSICAL EXAM: Temp 36.3 ??C (97.3 ??F) Ht 162.6 cm (64) Wt (!) 181.4 kg (400 lb) BMI 68.66 kg/m?? General: Well-developed well-nourished alert oriented cooperative adult female no acute distress. Normal voice. The external ears are normal the left canal was clear. The right canal was layered withantibiotic drops and debris. Using the operative microscope and microinstruments this was removed. There is a tympanic membrane perforation and an area of granulation on the posterior edge of the perforation. This was treated with silver nitrate and house ear powder. IMPRESSION: Right eardrum perforation and myringitis. PLAN: Once the myringitis has resolved can consider possible tympanoplasty repair. documented in this encounter Plan of Treatment Not on file documented as of this encounter Visit Diagnoses Diagnosis 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- Primary Myringitis Unspecified disorder of tympanic membrane documented in this encounter Discontinued Medications Medication Sig Discontinue Reason Start Date End Da te oxyCODONE (ROXICODONE) 5 mg immediate release tablet Take 1 Tablet by mouth every 6 hours as needed for up to 10 doses for Pain. Daily Max: 20 mg 12/26/2021 04/04/2022 polyethylene glycol (MIRALAX) 17 gram/dose powder Take 17 g by mouth daily. 04/04/2022 documented as of this encounter Care Teams [employer] Hemmer Relationship Specialty Start Date End Date Trisha Jacobson, MUMTA[address] [place] [address] PCP - General 08/28/21 11/13/23 documented as of this encounter
--- OUTSIDE RECORDS SUMMARY | 2024-07-15 21:48 | XMS_ITS | Encounter Summary ---
Author Organization [facility] Address [address] [place] [address] Care Team Providers Care Restoration Officer Name Role Phone Unknown, Provider Primary Care Provider [phone] Encounter Details Date Type Department Care Team ([facility] st Contact Info) Description 07/13/2016 Results Only [facility] [phone] Felice Rashid MD [address] [place] [id number] Social History Tobacco Use Types Packs/Day Years Used Date Smoking Tobacco: Never Assessed Sex and Gender Information Value Date Recorded Sex Assigned at Not on file Gender Identity Female 04/26/2022 9:31 EDT Sexual Orientation Not on file documented as of this encounter Plan of Treatment Not on file documented as of this encounter Procedures Procedure Name Priority Date/Time Associated Diagnosis Comments SURGICAL PATHOLOGY Routine 07/13/2016 8:42 EDT documented in this encounter Results * SURGICAL PATHOLOGY (07/13/2016 8:42 EDT) Pathology Report: SURGICAL PATHOLOGY REPORT Reports generated via electronic interface contain original data; however they are lacking the format of the original report. Caution should be taken when reading/interpret ing unformatted reports. Name: ? LOULOUCECILIA Lowery ? Accession #: ? [id number] ? : ? 1985 (Age: 31) ??F ? Collect Date: ? 07/13/2016 ? Location: ? [facility] ? Receive Date: ? 07/14/2016 ? Provider: FELICE RASHID MD Copy to: ? Final Pathologic Diagnosis: A. ??FALLOPIAN TUBE, RIGHT, STERILIZATION: - Portion of fallopian tube with full cross section. - Fimbriated end with no specific pathologic features. B. ??FALLOPIAN TUBE, LEFT, STERILIZATION: - Portion of fallopian tube with full cross section. - Fimbriated end with benign cyst. ?? Document reviewed and electronically signed by: AMOL THOMPSON MD Report ??Date: 07/18/2016 18:42 By the signature above, the attending physician certifies that he/she has personally conducted a gross and/or microscopic examination of the described specimens and rendered or confirmed the above diagnosis. Specimen(s) Received: A. ??Right fallopian tube B. ??Left fallopian tube Clinical History: Gross Description: A. ?Received in formalin labelled with proper patient identification (initials D, A) and right tube is a 9.0 cm in length fallopian tube ranging from 0.5 cm in diameter to 0.8 cm in diameter. The serosal surface is dusky brown-purple. Serosal adhesions or nodules are not identified. Sections show an intact wall and patent lumen. Plastic Card Grader Cardroom sections are submitted to include the entire fimbriated end and two cross sections in A1 and A2. B. ?Received in formalin labelled with proper patient identification (initials D, A) and left tube is a 7.0 cm in length fallopian tube ranging from 0.6 cm in diameter to 0.8 cm in diameter. The serosal surface is dusky brown-damico with hemorrhagic adhesions. A partially collapsed clear fluid-filled thin-walled cyst is present at the distal end. The fallopian tube wall is focally disrupted. Sections show a pinpoint lumen. Plastic Card Grader Cardroom sections are submitted to include the entire fimbriated end, the collapsed cyst, and two cross sections in B1-B3. MONY Maxwell (ASCP) 07/14/2016 12:54 PM End of Report [facility] 07/13/2016 8:42 EDT 07/14/2016 8:42 EDT Felice Rashid MD PATHOLOGY MATTHEW CAMPOS [facility] [address] [place] [address] documented in this encounter Visit Diagnoses Not on filedocumented in this encounter Care Teams Restoration Officer Relationship Specialty Start Date End Date Unknown, Provider, PCP - General 01/26/09 08/27/21 documented as of this encounter
[2024-07-15 22:22] LABS: Iron 37 ug/dL (50-170); Total Iron Binding Capacity 373 ug/dL (250-450); Transferrin Sat 10 % (15-50)
[2024-07-15 22:39] LABS: ALT 19 U/L (14-59); AST 13 U/L (15-37); Alkaline Phosphatase 68 U/L (46-116); Anion Gap 14.5 mmol/L (3-11); BUN 16 mg/dL (7-18); CO2 24.5 mmol/L (21.0-32.0); CREATININE 0.9 mg/dL (0.55-1.02); Calcium 9.3 mg/dL (8.5-10.1); Chloride 103 mmol/L (98-107); Ferritin 15 ng/mL (8-252); Glucose 94 mg/dL (74-106); Magnesium 1.9 mg/dL (1.8-2.4); Potassium 3.8 mmol/L (3.5-5.1); Sodium 142 mmol/L (136-145); Total Protein 7.7 g/dL (6.4-8.2); Vitamin D 25 Total 43.7 ng/mL (30-100)
== END 2024-07-15 21:42 | disposition home or self-care (01) ==
LOC: NCHCN 21:41
PROVIDERS: PCP Nurse Practitioner Family; Visit Provider Family Medicine
DX: E83.42 Hypomagnesemia (principal); E55.9 Vitamin D deficiency, unspecified; D50.9 Iron deficiency anemia, unspecified
CPT/HCPCS: 80053; 82306; 85027; 82728; 83540; 83550; 83735